=== PATIENT | female | born 1945 | race Caucasian/White ===

== ENCOUNTER 2018-12-23 06:58 | Inpatient (IN) ==
--- NOTE | 2018-12-05 13:20 | Anesthesiology Consultation ---
Date of Service December 05, 2018 Assessment & Plan (1) Encounter for pre-operative examination: Chart Review Chart Review: Acceptable Risk for Surgery (pending evaluation of clinical status AM DOS) and Patient NOT seen in Pre Admission Testing History Surgery Operation Date: 12/23/18 07:15 Proposed Procedures p Right Ankle Posterior Tibial Tendon Reconstruction, Flexor Digitorum Longus Tendon Transfer, - DO jose Lorenzo Medializing Calcaneal Osteotomy, - DO jose Lorenzo Lateral Column Lengthening with Autograft, Percutaneous Tendon Achilles Lengthening, Right Hip Autograft [place] Iliac Crest - Andrew Anna DO Height/Weight Height: 5 ft 4 in Weight: 87.543 kg Allergies Allergy/AdvReac Type Severity Reaction Status Date / Time No Known Allergies Allergy Unknown Verified 12/05/18 12:32 Medications Home Medications Medication Instructions Recorded Confirmed Last Taken acetaminophen [Tylenol] 325 mg PO BID 12/05/18 12/05/18 Unknown amlodipine [Norvasc] 5 mg PO QAM 12/05/18 12/05/18 Unknown cetirizine [Allergy Relief 10 mg PO QAM 12/05/18 12/05/18 Unknown (cetirizine)] iron,carbonyl-vitamin C 2 tab PO QAM 12/05/18 12/05/18 Unknown omeprazole 20 mg PO QAM 12/05/18 12/05/18 Unknown Past Medical History Medical History Frequency of urination GERD (gastroesophageal reflux disease) Hearing deficit Hiatal hernia "small, fixed" per 10/2018 CXR Hypertension Past Surgical History Surgical History History of ankle surgery RECONSTRUCTION OF LEFT ANKLE Hx of bladder repair surgery Hx of hysterectomy Hx of total knee replacement RIGHT AND LEFT Hx of tubal ligation PONV (postoperative nausea and vomiting) Social History Smoking Status: Never smoker Do You Dip or Chew Tobacco: No Hx Alcohol Use: Yes Alcohol type: wine alcohol intake frequency: holidays/special occasions only Hx Substance Use: No substance use type: does not use Testing Laboratory Results 11/03/18 WBC 7.55 H/H 16.0/47.1 PLATELETS 250 UA negative Electrocardiogram Date: 11/03/18 Possible ectopic atrial rhythm at 88bpm. LAD. Minimal voltage criteria for LVH, may be normal variant (denies chest pain, palpitations per patient questionnaire) Chest X-Ray Date: 11/03/18 Negative chest. Small fixed hiatal hernia
--- NOTE | 2018-12-22 13:39 | History & Physical Report ---
Date of Service December 22, 2018 Assessment & Plan (1) Posterior tibial tendon dysfunction (PTTD) of right lower extremity: Schedule Right Posterior tibial tendon reconstruction w/ FDL tendon transfer, Medializing calcaneal osteotomy, Lateral column lengthening w/ autograft, percutaneous tendo-achilles lengthening, Right iliac crest autograft harvest. All potential risks, benefits, complications, alternatives, and rehab have been discussed with the patient and she wishes to proceed. She will be scheduled for 12.23.18 with plan for ASA 81 mg BID x 4 wks for DVT prophylaxis. (2) Pes planus of right foot: (3) Achilles tendon contracture, right: History of Present Illness Chief Complaint: right ankle Primary Care Provider: ELVI Johnson This is a patient with a worsening flat foot deformity with worsening medial and lateral foot pain. She failed all conservative management and is now being set up for surgical management. Allergies Allergy/AdvReac Type Severity Reaction Status Date / Time No Known Allergies Allergy Unknown Verified 12/05/18 12:32 Home Medications Home Medications Medication Instructions Recorded Confirmed Type acetaminophen [Tylenol] 325 mg PO BID 12/05/18 12/05/18 History amlodipine [Norvasc] 5 mg PO QAM 12/05/18 12/05/18 History cetirizine [Allergy Relief 10 mg PO QAM 12/05/18 12/05/18 History (cetirizine)] iron,carbonyl-vitamin C 2 tab PO QAM 12/05/18 12/05/18 History omeprazole 20 mg PO QAM 12/05/18 12/05/18 History Past Med/Surg History Medical History Frequency of urination GERD (gastroesophageal reflux disease) Hearing deficit Hiatal hernia "small, fixed" per 10/2018 CXR Hypertension Surgical History History of ankle surgery RECONSTRUCTION OF LEFT ANKLE Hx of bladder repair surgery Hx of hysterectomy Hx of total knee replacement RIGHT AND LEFT Hx of tubal ligation PONV (postoperative nausea and vomiting) Social History Preferred Language: Georgian Communication Ability: Effective Quality Cloth Tester Required: No Beliefs That Will Affect Care: None Current Living Situation: Alone Other Information That Helps Us Care for You: No Feels Safe at Home: Yes Safety Concerns: Feels Safe At This Time Smoking Status: Never smoker Do You Dip or Chew Tobacco: No ; Second Hand Exposure: No ; Tobacco Cessation Education Requested by Patient: No Hx Alcohol Use: Yes Alcohol type: wine Hx Substance Use: No Physical Exam Constitutional: well developed and well nourished; no acute distress ENMT: external ear and nose normal, oropharynx normal Neck: trachea midline, no thyromegaly Respiratory: normal respiratory effort, lungs clear to auscultation Cardiovascular: Rate/Rhythm: regular rate and regular rhythm Gastrointestinal (Abdomen): normal bowel sounds, soft, nontender, no hepatosplenomegaly Musculoskeletal: Right ankle/foot: Pes planovalgus deformity. Tender along the PTT and the sinus tarsi. Decreased ROM, particularly with dorsiflexion. Skin: no rashes, warm and dry Neurologic: normal touch/pain/proprioception Psychiatric: A+Ox3, euthymic affect Lymphatic: no cervical or axillary lymphadenopathy
[~2018-12-23 06:58] MED LIST: CEFAZOLIN 2000MG 2,000 MG/15 ML SYR IV SCH; LR 15ML/HR IV SCH
[2018-12-23] MEDS ORDERED: BUPIVACAINE/EPINEPHRINE 0.5% MPF 1:200,000 30 ML VIAL ONE (07:16)
[2018-12-23] MEDS ORDERED: BACITRACIN INJ 50,000 UNIT VIAL ONE (07:17)
[2018-12-23] MEDS ORDERED: GELATIN SPONGE SZ 100 ONE (07:17)
[2018-12-23] MEDS ORDERED: THROMBIN FOR SOLN 20000 UNIT KIT ONE (07:17)
[2018-12-23] MEDS ORDERED: LIDOCAINE HCL 2% 2 ML VIAL/AMP(20MG/ML) INFIL ONE (07:20)
[2018-12-23] MEDS ORDERED: PROPOFOL IV EMULSION 10 MG/ML 20 ML VIAL IV ONE (07:20)
[2018-12-23] MEDS ORDERED: ONDANSETRON INJ 2 MG/ML 2 ML VIAL ONE (07:20)
[2018-12-23] MEDS ORDERED: fentaNYL citrate 100 MCG/2 ML VIAL ONE ×3 (07:21→11:23)
[2018-12-23] MEDS ORDERED: MIDAZOLAM HCL 1 MG/ML 2ML VIAL ONE (07:21)
--- NOTE | 2018-12-23 07:28 | History & Physical Bridge Note ---
Date of Service December 23, 2018 History & Physical Bridge Note I have examined the patient, reviewed the History & Physical and in the interval since the performance of the History & Physical I have noted the following changes of clinical significance: no changes noted
[2018-12-23] MEDS ORDERED: HYDROmorphone INJ 1 MG/ML SYRINGE IV PRN (07:56)
[2018-12-23] MEDS ORDERED: ePHEDrine sulfate 50 MG/ML AMP IV PRN (07:56)
[2018-12-23] MEDS ORDERED: ONDANSETRON INJ 2 MG/ML 2 ML VIAL IV PRN ×2 (07:56→14:02)
[2018-12-23] MEDS ORDERED: ATROPINE SULFATE 0.1 MG/ML 10ML SYR IV PRN (07:56)
[2018-12-23] MEDS ORDERED: ROPIVACAINE 0.5% 5 MG/ML 30 ML VIAL ONE (08:02)
[2018-12-23] MEDS ORDERED: MoRPHine SULFATE PF 1 MG/ML 10 ML AMP/VIAL ONE (09:18)
[2018-12-23] MEDS ORDERED: DEXAMETHASONE SOD INJ 4 MG/ML VIAL ONE (09:29)
[2018-12-23] MEDS ORDERED: GLYCOPYRROLATE 0.2 MG/ML VIAL ONE (09:29)
[2018-12-23] MEDS ORDERED: NEOSTIGMINE METHYLSULFATE 5 MG/5 ML SYR ONE (09:29)
[2018-12-23] MEDS ORDERED: MoRPHine SULFATE 2 MG/ML CARP SQ PRN (10:15)
[2018-12-23] MEDS ORDERED: ROCURONIUM BROMIDE 10 MG/ML 5 ML VIAL ONE (11:51)
--- NOTE | 2018-12-23 11:51 | Post Operative Brief Note ---
Immediate Post Op Note v1 Date of Surgery December 23, 2018 Pre & Post Diagnosis Operation Date: 12/23/18 08:45 Pre-Op Diagnosis: Right Ankle Posterior Tibial Tendon tear, posterior tibial tendon dysfunction grade 2, Achilles contracture, painful pes planus Post-Op Diagnosis: Right Ankle Posterior Tibial Tendon tear, posterior tibial tendon dysfunction grade 2, Achilles contracture, painful pes planus Procedure Operation Date: 12/23/18 08:45 Actual Procedures p Right Posterior Tibial Tendon Reconstruction with tendon transfer, Flexor Digitorum Longus Tendon Transfer,(Right) - Andrew Anna DO s Medializing Calcaneal Osteotomy with 7.3 mm screw fixation,(Right) - DO jose Lorenzo Lateral Column Lengthening calcaneus with Autograft, Percutaneous Tendon Achilles Lengthening, Right Hip Autograft [place] Iliac Crest(Right) - Andrew Anna DO Surgeon Andrew Anna DO Glue Bone Crusher Mario Sherwood PA-C Estimated Blood Loss 10 Findings Consistent with Post-Op Diagnosis Specimens Posterior tibial tendon insertion Drains Hemovac Drain (10 thai ) Anesthesia Type General Regional Complications none Disposition Accompanied Patient To Recovery: No Disposition: Recovery Room Overlapping Procedure I was present for: the critical portions of procedure. I was immediately available: during the entire case.
[2018-12-23] MEDS: fentaNYL citrate 100 MCG/2 ML VIAL IV PRN ×4 (12:25→12:40)
[2018-12-23] MEDS ORDERED: HYDROmorphone INJ 1 MG/ML SYRINGE ONE (12:58)
--- NOTE | 2018-12-23 12:58 | XRay Report ---
XR ankle RT min 3V routine HISTORY: 73 years-old Female post op [ORIF of the right ankle COMPARISON: Right foot radiographs 03/24/2018 TECHNIQUE: 3 views of the right ankle FINDINGS: Bony detail isn't secured secondary to overlying casting material. Skin bert project over the post erior lower leg and hindfoot. There is suggestion of osteotomy changes of the calcaneus. A large pita ulated screw projects over the posterior calcaneus. An additional cannulated screws noted about the a nterior process of the calcaneus. Satisfactory alignment. Mild tibiotalar and midfoot osteoarthritis. Surgical drainage catheter is noted along with expected postsurgical soft tissue swelling and deep t issue air. IMPRESSION: Postoperative findings as above. The above report was generated using voice recognition software. It may contain grammatical, syntax o r spelling errors. Electronically signed by: John Whitt M.D. 12/23/2018 12:56 PM
--- NOTE | 2018-12-23 14:00 | Fluoroscopy Report ---
FL ankle RT 2V CLINICAL HISTORY: 73 years-old Female presenting with RIGHT ANKLE. TECHNIQUE: 2 fluoroscopic image(s) recorded as part of an intraoperative procedure. COMPARISON: 12/23/2018. FINDINGS/IMPRESSION: Cannulated screw fixation of the calcaneus. Additional screw fixation across the calcaneocuboid artic ulation. Please see surgical report for further details. Fluoroscopy dosage (mGy): 0.26. Fluoroscopy time: 11.8 seconds. Number or time of high level fluoroscopy (HLF), digital spot, or digital subtraction images: 0. Electronically signed by: Thompson Odom M.D. 12/23/2018 1:59 PM
[2018-12-23] MEDS ORDERED: BISACODYL 10 MG SUPP PR PRN (14:02)
[2018-12-23] MEDS ORDERED: NO NSAIDS SCH (14:02)
[2018-12-23] MEDS ORDERED: NALOXONE HCL 0.4 MG/1 ML VIAL/CARP IV PRN (14:02)
[2018-12-23] MEDS ORDERED: METOCLOPRAMIDE HCL INJ 5 MG/ML 2 ML VIAL IV PRN (14:02)
[2018-12-23] MEDS ORDERED: MAGNESIUM HYDROXIDE SUSP 30 ML UDC PO PRN (14:02)
--- NOTE | 2018-12-23 14:47 | Anesthesiology Progress Note ---
Date of Service December 23, 2018 Anesthesia Post Procedure Vital Signs Vital Signs: Temp Pulse Pulse Resp BP Pulse Ox 12/23/18 14:22 76 16 150/82 H 93 12/23/18 13:55 36.4 C L 72 15 154/83 H 94 12/23/18 13:40 36.3 C L 69 14 145/80 H 100 12/23/18 13:25 36.1 C L 70 15 150/77 H 100 12/23/18 13:10 69 15 140/80 100 12/23/18 13:00 67 16 135/75 100 12/23/18 12:50 77 18 150/81 H 100 12/23/18 12:40 74 18 141/76 H 100 12/23/18 12:30 71 18 146/82 H 100 12/23/18 12:20 81 18 154/74 H 98 12/23/18 12:10 36.9 C 84 18 148/84 H 98 12/23/18 07:49 36.6 C 81 20 136/89 93 Pain Intensity Right Ankle: Pain Intensity: 7 Transfer of Care Handoff Completed per policy Notes Mental Status: alert / awake / arousable and participated in evaluation Patient Amnestic to Procedure: Yes Nausea / Vomiting: adequately controlled Pain: adequately controlled Airway Patency, RR, SpO2: stable & adequate BP & HR: stable & adequate Hydration State: stable & adequate Anesthetic Complications: no major complications apparent and Pt Satisfied with anesthetic care
[2018-12-23] MEDS: HYDROmorphone INJ 0.5 MG/0.5 ML SYR IV PRN (15:07)
[2018-12-23] MEDS: SODIUM CHLORIDE 0.9% 1000ML 1,000 ML IV SCH (17:28)
[2018-12-23] MEDS: CEFAZOLIN 2000MG 2,000 MG/15 ML SYR IV SCH (17:28)
[2018-12-23] MEDS: OXYCODONE HCL IR 5 MG TAB (IMMEDIATE RELEASE) PO PRN (17:33)
[2018-12-23] MEDS: SENNA 8.6 MG TAB PO SCH (21:05)
[2018-12-23] MEDS: ACETAMINOPHEN 500 MG TAB PO SCH (21:06)
[2018-12-23] MEDS: ASPIRIN 81 MG ECTAB PO SCH (21:06)
[2018-12-23] MEDS: DOCUSATE SODIUM 100 MG CAP PO SCH (21:07)
--- NOTE | 2018-12-23 23:46 | Operative Report ---
DATE OF OPERATION: 12/23/2018 PREOPERATIVE DIAGNOSES: 1. Right posterior tibial tendon tear. 2. Posterior tibial tendon dysfunction grade 2. 3. Achilles tendon contracture. 4. Painful pes planovalgus. POSTOPERATIVE DIAGNOSES: 1. Right posterior tibial tendon tear. 2. Posterior tibial tendon dysfunction grade 2. 3. Achilles tendon contracture. 4. Painful pes planovalgus. PROCEDURE: 1. Right foot posterior tibial tendon reconstruction with flexor digitorum longus tendon transfer. 2. Medializing calcaneal osteotomy with screw fixation. 3. Lateral column lengthening of the calcaneus with application autograft and screw. 4. Percutaneous tendon Achilles lengthening. 5. Right pelvis iliac crest bone graft harvest. SURGEON: Andrew Anna DO BLEND TECHNICIAN: Mario Sherwood PA-C, who was present for patient positioning, sterile prep and drape, management of retractors and instruments. He was present through the critical portions of the case including wound closure, application of sterile dressing and transport of the patient to recovery. ANESTHESIA: General LMA with popliteal block and local. SPECIMENS: None. DRAINS: Hemovac x1. COMPLICATIONS: None. BLOOD LOSS: 10 mL. PERTINENT HISTORY: This is a 73-year-old woman who had progressive chronic and worsening right foot pain, swelling, deformity and weakness. She attempted and failed conservative management including shoe modification, activity modification, anti-inflammatories, both oral and topical as well as physician directed home exercises, physical therapy as an outpatient, use of orthotic devices, use of bracing, use of an assistive device. The patient had radiographs and MRI which demonstrated posterior tibial tendon tear with posterior tibial tendon dysfunction grade 2, Achilles tendon contracture and pes planovalgus. The patient was then scheduled for surgery as indicated. All potential risks, benefits, complications, alternatives, rehab, potential for incomplete relief of symptoms, need for further surgery, DVT, PE, , persistent pain, swelling, scarring, weakness, neurovascular injury, wound complications, hardware failure, nonunion, malunion and bone fracture were discussed with the patient. The patient decided to proceed with the procedure as indicated. DESCRIPTION OF PROCEDURE: The patient was taken to the operative suite. The consent was reviewed and surgical site was identified. The patient had undergone a anesthetic and then transferred to the Operating Room table. Tourniquet was placed high in the right thigh over cast padding. Right iliac crest and right lower extremity were then sterilely prepped and draped in usual fashion. The right lower extremity was then elevated and exsanguinated with Esmarch bandage, tourniquet inflated to 350 mmHg. Next, right foot was held in dorsiflexion. 11 blade scalpel was used to perform a three part percutaneous tendo Achilles lengthening and then the small stab incisions were then closed with a skin stapler. Next, a 15 blade scalpel was used to make an incision in oblique fashion on the lateral aspect of the right calcaneus. The incision was deepened to subcutaneous tissue. Meticulous hemostasis with electrocautery. Full thickness flaps were developed. Next, periosteum was elevated with small periosteal elevator. Hohmann retractors were placed and a sagittal saw was used to perform the osteotomy in the posterior aspect of the calcaneus. Tuberosity was then shifted medially and then stabilized with a guide pin from the 7.3 mm cannulated screw set under fluoroscopic control. Next, a short thread 7.3 mm cannulated screw of appropriate length was then placed over the guide pin and then used to compress the osteotomy under fluoroscopic control. Next, the guide pin was removed. The wound was irrigated with sterile Normal Saline and the dermis was closed using buried 3-0 Vicryl sutures and the skin was closed using 4-0 Nylon. Next, a 15 blade scalpel incision was made over the anterior process of the calcaneus and lateral calcaneus, the incision deepened through subcutaneous tissue, meticulous hemostasis with electrocautery. The extensor digitorum brevis was identified, incised and then elevated both superiorly and inferiorly. Peroneal tendon sheath was elevated and Hohmann retractors were placed in the sinus tarsi and then the inferior aspect of the calcaneus. A sagittal saw was used to make an osteotomy approximately 1.5 cm proximal to the calcaneal cuboid joint. Smooth osteotomes were placed into the osteotomies to open the osteotomy site and then a cervical lamina stone spreader operator was placed in the opening. The opening of appropriate width was then measured and the cervical lamina stone spreader operator was then removed from the osteotomy and a moist lap was placed over the foot. Next, after injection of the right iliac crest with approximately 15 cc of 0.5% Marcaine with Epinephrine a 15 blade scalpel incision was made over the iliac crest approximately 1 cm proximal to the ASIS. This was deepened to subcutaneous tissue with electrocautery down to the level of the fascia. Fascia was incised in line with the skin incision and then the iliac crest was clearly visualized, soft tissue and fascia was elevated medially and laterally. Small Johnson retractors were placed in the inner and outer table of the iliac crest. It was irrigated with sterile Normal Saline. Appropriate length of bone wedge was measured and marked with electrocautery and then a sagittal saw was used to resect the appropriate width trapezoidal tricortical graft from the pelvis. Next, after irrigation and suction the graft was then placed on the back table and a small amount of cancellous graft was excised from the iliac crest. The wound was then finally irrigated with Sterile Normal Saline. The defect in the iliac crest was then packed with Gelfoam and Thrombin. This was then closed with the fascia overlying the iliac crest with #1 Vicryl sutures. Next, this was injected with 1 cc of Duramorph and 5 cc of 0.5% Marcaine with Epinephrine. The dermis was closed using buried interrupted 2-0 Vicryl sutures and the skin was closed using skin bert. Approximately 5 more cc of 0.5% Marcaine with Epinephrine was injected. No oozing or bleeding was encountered and a sterile compressive dry dressing was applied overwrapped with an OpSite. Next, the graft was then placed in the lateral osteotomy of the foot to lengthen the lateral column using a cervical lamina stone spreader operator to span the osteotomy. After the graft was tamped in place with a bone tamp and mallet the cervical lamina stone spreader operator was removed. Next, the adjacent bone graft obtained from the iliac crest was then packed around the tricortical graft and then the graft was then stabilized with a single fully threaded 4.0 mm small fragment screw placed under lag technique compressing the graft in place. Next, the 2-0 Vicryl suture was used to close the extensor digitorum brevis and the dermis was closed using buried interrupted 3-0 Vicryl. Skin was closed using 4-0 Nylon sutures. Next, a 15 blade scalpel was used to make a long curvilinear incision along the medial aspect of the hind foot overlying the posterior tibial tendon. The incision was deepened to subcutaneous tissue. Meticulous hemostasis achieved with electrocautery. The incision was extended to the first metatarsal head. Next, after incision of the lacinate ligament the flexor retinaculum was encountered. This was incised in line with skin incision overlying the posterior tibial tendon. The posterior tibial tendon was clearly visualized. Tenotomy scissors were then used to complete the release of the flexor retinaculum and the posterior tibial tendon was then elevated sharply with combination of electrocautery and 15 blade scalpel from its insertion on the navicular. The damaged portion of the tendon distally was then resected and then a whip stitch was placed with 0 Ethibond suture in the distal aspect of the posterior tibial tendon. Next, dissection was continued in the mid foot in the interval between the first metatarsal and the abductor hallucis. A Weitlaner retractor was placed in the wound and then after careful dissection the master knot of Lauro was released and the flexor digitorum longus and flexor hallucis longus were clearly visualized distally. Tenodesis was performed with interrupted 0 Ethibond suture with toes held in neutral alignment in line with the metatarsals. Next, a whip stitch was placed in the distal aspect of the FDL tendon and then the FDL was then released distally to allow it to be retracted proximally posterior to the medial malleolus after a small cut was made in the FDL sheath posterior to the medial malleolus. After the tendon was withdrawn posteriorly, the soft tissues were elevated from the medial navicular and a 4.5 mm drill hole was made in the medial navicular. A Aguila suture passer was used to transfer the tendon from the plantar to the dorsal aspect of the navicular. It was then sutured back down to itself using a sharp tendon passer and a Pulvertaft weave technique with #2 fiber wire suture. Several passes were made and then this was then incorporated into the posterior tibial tendon. Next, free needle was used to tie the ends of the posterior tibial tendon and FDL tendon into the adjacent tendons. Sutures were then tied and cut. The wound was irrigated with Sterile Normal Saline. Deep drain was placed, a #10 Australian single Hemovac drain medially and then the flexor sheath was closed using interrupted 2-0 Vicryl sutures. The interval between the first metatarsal and the abductors were closed using interrupted 2-0 Vicryl sutures. The dermis was closed using buried interrupted 3-0 Vicryl suture and skin closed with 4-0 Nylon. A sterile compressive Noah Henderson plaster splint was applied and wrapped with an Jai wrap with the foot held in slight equinus and inversion. The tourniquet was released, patient awakened and taken to recovery in stable condition. I attest to the content of the Intraoperative Record and any orders documented therein. Any exception s are noted below.
[2018-12-24] MEDS: OXYCODONE HCL IR 5 MG TAB (IMMEDIATE RELEASE) PO PRN ×5 (00:41→21:15)
[2018-12-24] MEDS: CEFAZOLIN 2000MG 2,000 MG/15 ML SYR IV SCH (00:41)
[2018-12-24] MEDS: SODIUM CHLORIDE 0.9% 1000ML 1,000 ML IV SCH (00:42)
[2018-12-24] MEDS: ACETAMINOPHEN 500 MG TAB PO SCH ×3 (05:31→21:13)
[2018-12-24 06:03] LABS: Hematocrit (blood only) 41.7 % (37-47); Hemoglobin 13.9 g/dL (12.0-16.0); Mean Corpuscular Hgb Conc 33.3 g/dL (32-36); Mean Corpuscular Volume 96.3 fL (80-100); Mean Platelet Volume 9.5 fL (7.4-10.4); Platelet Count 209 K/uL (130-400); RDW Coefficient of Variation 13.4 % (11.5-14.5); RDW Standard Deviation 47.2 fL (36.4-46.3); Red Blood Count 4.33 M/uL (4.2-5.4)
[2018-12-24 06:35] LABS: BUN Creatinine Ratio 16.1 (10-20); Calcium 8.3 mg/dl (8.5-10.1); Creatinine Clr Calc Pharmacy 43.5 ml/min; Est GFR (African American) 49.1; Est GFR (Non-African American) 42.3; Potassium 4.2 mmol/L (3.5-5.1)
[2018-12-24] MEDS: HYDROmorphone INJ 0.5 MG/0.5 ML SYR IV PRN ×2 (06:47→11:19)
--- NOTE | 2018-12-24 07:57 | Orthopedic Progress Note ---
Date of Service December 24, 2018 Assessment & Plan (1) Posterior tibial tendon dysfunction (PTTD) of right lower extremity: 73 yo female stable POD #1 s/p right hindfoot reconstruction 1. Med management 2. DVT prophylaxis- SCDs 3. PT/OT 4. D/C planning- pt concerned because she was not able to get a wheelchair pre- op. She is supposed to got to her sisters home on d/c but concerned about her ability to get around, will d/w Dr Anna Subjective Pt resting in bed, states moderate discomfort right ankle/foot Physical Exam Physical Exam: Bulky dressing and drain in place Results & Data Vital Signs (Past 12 Hours) Vital Signs Temp Pulse Resp BP Pulse Ox 12/24/18 07:21 37.0 C 76 18 125/73 92 12/24/18 04:20 36.6 C 75 16 118/72 96 12/23/18 23:20 93 12/23/18 23:15 36.7 C 83 16 120/77 89 L 12/23/18 20:24 36.6 C 83 18 120/74 91 Laboratory Results 12/24/18 12/24/18 Range/Units 05:55 05:55 WBC 10.70 (4.8-10.8) K/uL RBC 4.33 (4.2-5.4) M/uL Hgb 13.9 (12.0-16.0) g/dL Hct 41.7 (37-47) % MCV 96.3 (80-100) fL MCH 32.1 (25-34) pg MCHC 33.3 (32-36) g/dL RDW Std Deviation 47.2 H (36.4-46.3) fL RDW Coeff of Dominic 13.4 (11.5-14.5) % Plt Count 209 (130-400) K/uL MPV 9.5 (7.4-10.4) fL Sodium 138 (136-145) mmol/L Potassium 4.2 (3.5-5.1) mmol/L Chloride 107 (98-107) mmol/L Carbon Dioxide 26 (21-32) mmol/L Anion Gap 5.0 (3-11) BUN 20 H (7-18) mg/dl Creatinine 1.25 H (0.6-1.2) mg/dl Est Cr Clr Drug Dosing 43.5 ml/min Est GFR ( Amer) 49.1 Est GFR (Non-Af Amer) 42.3 BUN/Creatinine Ratio 16.1 (10-20) Glucose 112 H (70-99) mg/dl Calcium 8.3 L (8.5-10.1) mg/dl
[2018-12-24] MEDS: PANTOprazole 40 MG TAB PO SCH (08:08)
[2018-12-24] MEDS: AMLODIPINE BESYLATE 5 MG TAB PO SCH (08:09)
[2018-12-24] MEDS: ASPIRIN 81 MG ECTAB PO SCH ×2 (08:09→21:13)
[2018-12-24] MEDS: MULTIVITAMIN TAB PO SCH (08:09)
[2018-12-24] MEDS: CETIRIZINE HCL 10 MG TABLET PO SCH (08:09)
[2018-12-24] MEDS: DOCUSATE SODIUM 100 MG CAP PO SCH ×2 (08:09→21:12)
[2018-12-24] MEDS ORDERED: IRON CARBONYL VITAMIN C PO SCH (09:00)
[2018-12-24] MEDS: SENNA 8.6 MG TAB PO SCH (21:13)
[2018-12-25] MEDS: OXYCODONE HCL IR 5 MG TAB (IMMEDIATE RELEASE) PO PRN ×2 (06:20→21:13)
[2018-12-25] MEDS: ACETAMINOPHEN 500 MG TAB PO SCH ×3 (06:20→21:13)
--- NOTE | 2018-12-25 09:02 | Orthopedic Progress Note ---
Date of Service December 25, 2018 Assessment & Plan (1) Posterior tibial tendon dysfunction (PTTD) of right lower extremity: 73 yo female stable POD #2 s/p right hindfoot reconstruction with iliac crest bone graft 1. Med management 2. DVT prophylaxis- ASA, SCDs 3. PT/OT 4. D/C planning- home. Pt must be nonweightbearing right LE and not safe with walker or cane. Would recommend d/c when pt able to get wheelchair(Tuesday 12/26) Subjective Pt resting in bed, complains of more pain right hip(bone graft harvest site) than ankle, concerned about going home without a wheelchair because doesn't feel safe on walker Physical Exam Physical Exam: Dressing removed right hip, incision C/D/I, dressing in place right ankle, drain d/c'd, toes mobile Results & Data Vital Signs (Past 12 Hours) Vital Signs Temp Pulse Resp BP Pulse Ox 12/25/18 06:28 36.9 C 90 17 127/75 92 12/25/18 00:01 92 12/24/18 23:29 37.4 C 96 H 16 119/66 92 12/24/18 23:28 73 L
[2018-12-25] MEDS: AMLODIPINE BESYLATE 5 MG TAB PO SCH (09:38)
[2018-12-25] MEDS: CETIRIZINE HCL 10 MG TABLET PO SCH (09:38)
[2018-12-25] MEDS: PANTOprazole 40 MG TAB PO SCH (09:38)
[2018-12-25] MEDS: DOCUSATE SODIUM 100 MG CAP PO SCH ×2 (09:38→21:14)
[2018-12-25] MEDS: ASPIRIN 81 MG ECTAB PO SCH ×2 (09:39→21:14)
[2018-12-25] MEDS: MULTIVITAMIN TAB PO SCH (09:39)
[2018-12-25] MEDS: SENNA 8.6 MG TAB PO SCH (21:14)
[2018-12-26] MEDS: ACETAMINOPHEN 500 MG TAB PO SCH (05:50)
--- NOTE | 2018-12-26 08:09 | Anesthesiology Progress Note ---
Date of Service December 26, 2018 Anesthesia Post Procedure Vital Signs Vital Signs: Temp Pulse Pulse Resp BP Pulse Ox 12/26/18 07:02 36.6 C 82 18 111/72 93 12/25/18 23:20 36.6 C 95 H 16 125/75 94 12/25/18 15:24 36.8 C 102 H 18 115/73 92 12/25/18 14:17 92 Notes Mental Status: alert / awake / arousable and participated in evaluation Nausea / Vomiting: adequately controlled Pain: adequately controlled Airway Patency, RR, SpO2: stable & adequate BP & HR: stable & adequate Hydration State: stable & adequate Neuraxial Anesthesia: sensory block resolved
[2018-12-26] MEDS: AMLODIPINE BESYLATE 5 MG TAB PO SCH (08:38)
[2018-12-26] MEDS: PANTOprazole 40 MG TAB PO SCH (08:38)
[2018-12-26] MEDS: CETIRIZINE HCL 10 MG TABLET PO SCH (08:38)
[2018-12-26] MEDS: ASPIRIN 81 MG ECTAB PO SCH (08:38)
[2018-12-26] MEDS: MULTIVITAMIN TAB PO SCH (08:38)
[2018-12-26] MEDS: DOCUSATE SODIUM 100 MG CAP PO SCH (08:38)
--- NOTE | 2018-12-26 10:16 | Orthopedic Progress Note ---
Date of Service December 26, 2018 Assessment & Plan (1) Posterior tibial tendon dysfunction (PTTD) of right lower extremity: 73 yo female stable POD #3 s/p right hindfoot reconstruction with iliac crest bone graft 1. Med management 2. DVT prophylaxis- ASA, SCDs 3. PT/OT 4. D/C planning- home today Subjective Pain is controlled in the right ankle and pelvis. Has been able to be NWB on the RLE but wants to have a wheelchair for the best ability to stay NWB. She is planning on staying with her sister on a 1 floor home during her rehab. Physical Exam Constitutional: well developed and well nourished; no acute distress ENMT: external ear and nose normal, oropharynx normal Neck: trachea midline, no thyromegaly Respiratory: normal respiratory effort, lungs clear to auscultation Cardiovascular: Rate/Rhythm: regular rate and regular rhythm Gastrointestinal (Abdomen): normal bowel sounds, soft, nontender, no hepatosplenomegaly Musculoskeletal: Right lower leg: splint in place. Toes are mobile. Sensation intact to light touch. Skin: no rashes, warm and dry Neurologic: normal touch/pain/proprioception Psychiatric: A+Ox3, euthymic affect Lymphatic: no cervical or axillary lymphadenopathy Results & Data Vital Signs (Past 12 Hours) Vital Signs Temp Pulse Resp BP Pulse Ox 12/26/18 07:02 36.6 C 82 18 111/72 93 12/25/18 23:20 36.6 C 95 H 16 125/75 94
--- NOTE | 2019-01-02 11:39 | Discharge Summary ---
Date of Service January 02, 2019 Admission HPI Per Admitting Provider This is a patient with a worsening flat foot deformity with worsening medial and lateral foot pain. She failed all conservative management and is now being set up for surgical management. Principal Diagnosis right posterior tibial tendon dysfunction Discharge Exam Constitutional well developed and well nourished; no acute distress ENMT external ear and nose normal, oropharynx normal Neck trachea midline, no thyromegaly Respiratory normal respiratory effort, lungs clear to auscultation Cardiovascular Rate/Rhythm: regular rate and regular rhythm Gastrointestinal (Abdomen) normal bowel sounds, soft, nontender, no hepatosplenomegaly Musculoskeletal Right ankle: splint C/D/I. Toes are mobile. Sensation intact to light touch. Right anterior pelvis: dressing C/D/I. Skin no rashes, warm and dry Neurologic normal touch/pain/proprioception Psychiatric A+Ox3, euthymic affect Lymphatic no cervical or axillary lymphadenopathy Discharge Data Allergies Allergy/AdvReac Type Severity Reaction Status Date / Time No Known Allergies Allergy Unknown Verified 12/23/18 07:40 Consultations 12/23/18 14:02 Consult Case Management - Discharge Planning Routine Procedures Performed Operation Date: 12/23/18 08:45 Actual Procedures p Right Ankle Posterior Tibial Tendon Reconstruction, Flexor Digitorum Longus Tendon Transfer,(Right) - DO jose Lorenzo Medializing Calcaneal Osteotomy,(Right) - DO jose Lorenzo Lateral Column Lengthening with Autograft, Percutaneous Tendon Achilles Lengthening, Right Hip Autograft [place] Iliac Crest(Right) - Andrew Anna DO Ordered Studies 12/23/18 05:00 US - OR guided needle placemen Routine 12/23/18 08:45 FL ankle RT 2V Routine FL fluoroscopy <1hr Routine Hospital Course (1) Posterior tibial tendon dysfunction (PTTD) of right lower extremity: Patient underwent the noted procedure on 12.23.18. She progressed well with pain control and PT. However, PT felt for the patient to go home, she would be safest with a wheelchair. She was unable to obtain a wheelchair until the beginning of the week on 12.26.18. She was discharged on POD #3 after she was able to get the wheelchair from a DME provider. 73 yo female stable POD #3 s/p right hindfoot reconstruction with iliac crest bone graft 1. Med management 2. DVT prophylaxis- ASA, SCDs 3. PT/OT 4. D/C planning- home today Total Time Total Time Spent Total Time Spent (In Minutes): 60 minutes Total Time Includes: Examination of the Patient, Discharge Planning and Medi cation Reconciliation Discharge Plan Discharge Items Patient Disposition: Home - Self-Care Reason For Visit: Right Ankle Posterior Tibial Tendon Dysfunction Activity: Per Instructions section Non-emergency contact: Surgeon Follow-up/Referrals: Marifer Gomez CRNP [Primary Care Provider] - Addtl Real Estate Officer Provider Instructions: ACTIVITY RECOMMENDATIONS: Limitations: No weight bearing to affected limb at all times. SPECIAL CARE INSTRUCTIONS: * Take aspirin 81 mg every 12 hours for the next 4 weeks for blood clot prophylaxis. * Some drainage onto the dressing is normal and is no cause for alarm. * Some swelling is natural especially after walking. * When resting, keep your foot elevated above the level of your heart. * Call [facility] if you notice: -Increased drainage -Fever over 101 degrees F -Severe constant pain BANDAGE: * Leave bandage/cast in place unless otherwise directed. * Keep bandage/cast dry at all times. FOLLOW UP VISIT WITH DR. ANNA If appointment is not already scheduled: Please call [facility] after you get home today to schedule a follow-up appointment for [address] Anna at . Stand-Alone Forms: My [facility] [employer], Opioid Pain Management Medications and DC Order Prescriptions: New aspirin [Ecotrin Low Strength] 81 mg Tablet,Delayed Release (Dr/Ec) 81 mg PO BID Qty: 60 RF: 0 oxycodone-acetaminophen [Percocet] 5-325 mg tablet 1 tab PO Q4H PRN (Reason: pain) Qty: 30 RF: 0 Continued amlodipine [Norvasc] 5 mg Tablet 5 mg PO QAM RF: 0 omeprazole 20 mg Tablet,Delayed Release (Dr/Ec) 20 mg PO QAM RF: 0 Allergy Relief (cetirizine) 10 mg Capsule 10 mg PO QAM RF: 0 iron,carbonyl-vitamin C 65 mg iron- 125 mg Tablet,Delayed Release (Dr/Ec) 2 tab PO QAM RF: 0 Discontinued acetaminophen [Tylenol] 325 mg Capsule 325 mg PO BID RF: 0 Discharge Orders: Discharge Order (Routine); Ordered 12/26/18 Ordered By: Mario Cyr/Other Patient Handouts: Surgery Prevent DVT After Admission Data Admit Date/Time: 12/23/18 12:13 Attending Provider: Andrew Anna Admit Provider: Andrew Anna Primary Care Provider: Marifer Gomez Other Interventions: Discharge Summary Assessment (RN) Last Done: 12/26/18 10:26 DC Date/Time DO NOT enter until pt leaves facility: 12/26/18 13:19
== END 2018-12-26 13:19 | disposition home or self-care (01) | DRG 502 ==
LOC: ASU 06:58 → 3E 12:13
DX: K21.9 Gastro-esophageal reflux disease without esophagitis; M67.871 Other specified disorders of synovium, right ankle and foot; M24.571 Contracture, right ankle; X58.XXXA Exposure to other specified factors, initial encounter; S86.191A Other injury of other muscle(s) and tendon(s) of posterior muscle group at lower leg level, right leg, initial encounter; Y92.89 Other specified places as the place of occurrence of the external cause; M21.41 Flat foot [pes planus] (acquired), right foot; I10 Essential (primary) hypertension

== ENCOUNTER 2019-02-08 18:57 | Inpatient (IN) ==
[2019-02-08 19:30] LABS: Basophils # (auto) 0.02 K/uL (0-0.2); Basophils % (auto) 0.2 %; Eosinophils # (auto) 0.03 K/uL (0-0.5); Eosinophils % (auto) 0.3 %; Hematocrit (blood only) 46.1 % (37-47); Hemoglobin 15.3 g/dL (12.0-16.0); Immature Granulocytes # (auto) 0.03 K/uL (0.00-0.02); Immature Granulocytes % (auto) 0.3 %; Lymphocytes # (auto) 1.03 K/uL (1.2-3.4); Lymphocytes % (auto) 8.7 %; Mean Corpuscular Hemoglobin 31.7 pg (25-34); Mean Corpuscular Hgb Conc 33.2 g/dL (32-36); Mean Corpuscular Volume 95.4 fL (80-100); Mean Platelet Volume 9.8 fL (7.4-10.4); Monocytes # (auto) 1.14 K/uL (0.11-0.59); Monocytes % (auto) 9.6 %; Neutrophils % (auto) 80.9 %; Platelet Count 295 K/uL (130-400); RDW Coefficient of Variation 12.8 % (11.5-14.5); RDW Standard Deviation 44.7 fL (36.4-46.3); Red Blood Count 4.83 M/uL (4.2-5.4); White Blood Count 11.85 K/uL (4.8-10.8)
[2019-02-08 19:36] LABS: iSTAT Creatinine 1.1 mg/dl (0.6-1.3); iSTAT Hemoglobin 16.3 g/dl (12.0-16.0); iSTAT Ionized Calcium 1.17 mmol/l (1.12-1.32); iSTAT Potassium 3.8 mEq/L (3.3-5.0)
[2019-02-08 19:41] LABS: INR 1.1 (0.9-1.1); Partial Thromboplastin Time 27.3 Seconds (21.0-31.0); Prothrombin Time 11.2 Seconds (9.0-12.0)
[2019-02-08] MEDS ORDERED: OPTIRAY 320 125ml IV PRN (19:41)
[2019-02-08 19:45] LABS: Albumin Level 3.3 gm/dl (3.4-5.0); BUN Creatinine Ratio 11.7 (10-20); Calcium 9.8 mg/dl (8.5-10.1); Creatinine Clr Calc Pharmacy 40.4 ml/min; Est GFR (African American) 47.2; Est GFR (Non-African American) 40.8; Potassium 3.7 mmol/L (3.5-5.1)
[2019-02-08 19:47] LABS: Albumin Globulin Ratio 0.6 (0.9-2); Bilirubin,Total 0.7 mg/dl (0.2-1); Globulin 5.3 gm/dl (2.5-4.0); Total Protein 8.6 gm/dl (6.4-8.2)
--- NOTE | 2019-02-08 20:02 | CT Scan Report ---
CT angio chest PE protocol CLINICAL HISTORY: 73 years-old Female presenting with dyspnea, right chest pain, clinical concern for pulmonary embolus. TECHNIQUE: Multidetector CT angiography of the chest was performed after administration of intravenou s contrast. 3-D volumetric and/or maximum intensity projection (MIP) images were subsequently reconst ructed for review. IV contrast: 117 mL of Optiray 320. One or more dose lowering techniques were used consistent with the principles of ALARA (as low as reasonably achievable), including automatic expos ure control, mA or kV adjustment to individual patient size, and/or use of iterative reconstruction. COMPARISON: None. CT DOSE (mGy.cm): The estimated cumulative dose is 394.85 mGy.cm. FINDINGS: Senior Mainframe Programmer Analyst topogram: Cardiomegaly. Pulmonary vasculature: The study is suboptimal for the assessment of the pulmonary vascular tree secondary to respiratory mo tion artifact. Extensive bilateral acute pulmonary emboli extending from the distal right and left ma in pulmonary arteries into lobar and segmental pulmonary arteries of all 5 lobes. Main pulmonary emperatriz ry enlarged measuring 3.5 cm in diameter. Mild flattening of the interventricular septum. No intracar diac filling defect. No reflux of contrast into the hepatic veins. Remaining chest: Soft tissues: Normal thyroid and thoracic inlet. No axillary, supraclavicular, mediastinal, or hilar lymphadenopathy. Atherosclerosis of the aorta. Partial annular and coronary artery calcification. Nor mal heart size. Small bilateral pleural effusions, which are simple appearing. Large mixed sliding ty pe and paraesophageal type hernia. Lungs and airways: No pneumothorax. Central airways patent. Pulmonary arteries are not significantly enlarged relative to adjacent bronchi. No interlobular septal thickening. Extensive dependent consoli dation volume loss consistent with passive atelectasis in the setting of the pleural effusions. No co nvincing additional infiltrate or consolidation allowing for respiratory motion artifact degradation of the evaluation of the lung parenchyma. Musculoskeletal: Degenerative changes of the spine. IMPRESSION: 1. Extensive bilateral acute pulmonary emboli involving the distal main right and left pulmonary art eries and all lobar arteries, involving all 5 lobes. Additionally, mild evidence of right heart strai n. Correlate clinically. 2. No evidence of pulmonary infarcts at this time. 3. Small bilateral pleural effusions with associated passive atelectasis. Electronically signed by: Thompson Odom M.D. 02/08/2019 8:00 PM
[2019-02-08] MEDS ORDERED: HEPARIN SOD 5,000 UNIT/0.5 ML VIAL ONE (20:09)
[2019-02-08] MEDS ORDERED: HEPARIN SOD (PORCINE) 1000 UNIT/ML 10 ML VIAL ONE (20:18)
[2019-02-08] MEDS ORDERED: POTASSIUM CHLORIDE 20 MEQ TABCR PO STA (20:23)
[2019-02-08] MEDS ORDERED: HEPARIN IV BOLUS 5,000 UNITS in SYRINGE 0 ML IV ONE (20:23)
[2019-02-08] MEDS: HEPARIN SODIUM/DEXTROSE 25,000 UNITS/500 ML BAG IV SCH (20:24)
[2019-02-08] MEDS ORDERED: FUROSEMIDE 40 MG in SYRINGE 0 ML IV ONE (20:26)
[2019-02-08] MEDS ORDERED: ACETAMINOPHEN 325 MG TAB PO STA (21:12)
--- NOTE | 2019-02-08 21:12 | History & Physical Report ---
Date of Service February 08, 2019 Assessment & Plan (1) Acute hypoxemic respiratory failure: Secondary to bilateral PE Possible heart failure from cardiac strain secondary to above Decreased mobility from recent RLE orthopedic procedure as potential provoking factor. hypertension, slightly elevated secondary discomfort, anxiety CRI, creatinine at baseline Hyperglycemia rule out DM past tobacco abuse. PCU Supplemental O2 Baseline ABG IV heparin (Patient has expressed interest in [facility] for home Rx.) Lasix 1 dose TTE RE possible heart failure secondary to bilateral PE Pulmonary consult RE respiratory failure Check hemoglobin A1c DVT prophylaxis. IV heparin Full code Total critical time was 45 minutes. History of Present Illness Chief Complaint: Shortness of breath Primary Care Provider: ELVI Johnson History obtained from patient, family, and records. Medical history significant for hypertension, GERD, arthritis, CRI (baseline creatinine 1.3), past tobacco abuse. Recent confinement under orthopedics service last December 2018 for RLE posterior tibial tendon dysfunction status post surgery. Patient discharged on aspirin twice daily prophylaxis for a month which patient complied with. Increased swelling noted on the right leg since surgery. No concerns on follow-up with orthopedic doctor yesterday. RLE cast removed yesterday. 2 days history of worsening shortness of breath especially on exertion, pleuritic substernal pain, dry cough symptoms, low-grade fever, no aspiration, no known sick contacts. At the ER, O2 sats noted to be 70s on room air. IV heparin started for bilateral PE found on CT. No prior episodes of PE/DVT in the past. No known family history. Up-to-date with cancer screening. 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 Allergies Allergy/AdvReac Type Severity Reaction Status Date / Time No Known Allergies Allergy Unknown Verified 02/08/19 22:21 Home Medications Home Medications Medication Instructions Recorded Confirmed Type Allergy Relief (cetirizine) 10 mg PO QAM 12/05/18 02/08/19 History amlodipine [Norvasc] 5 mg PO QAM 12/05/18 02/08/19 History omeprazole 20 mg PO QAM 12/05/18 02/08/19 History Past Med/Surg History Medical History Frequency of urination GERD (gastroesophageal reflux disease) Hearing deficit Hiatal hernia "small, fixed" per 10/2018 CXR Hypertension Surgical History History of ankle surgery RECONSTRUCTION OF LEFT ANKLE Hx of bladder repair surgery Hx of hysterectomy Hx of total knee replacement RIGHT AND LEFT Hx of tubal ligation PONV (postoperative nausea and vomiting) Family History Other Family history non-contributory Social History Preferred Language: Austrian Communication Ability: Unable Science Consultant Required: No Beliefs That Will Affect Care: None marital status: Current Living Situation: Family Current Living Situation Comment: Sister Feels Safe at Home: Yes Safety Concerns: Feels Safe At This Time Smoking Status: Former smoker Smoking End Date: 1971 ; Second Hand Exposure: No ; Hx Alcohol Use: Yes Alcohol type: beer Hx Substance Use: No Review of Systems Review of Systems: As per HPI, all 10 systems reviewed, all other ROS negative Physical Exam Physical Exam: GENERAL: Comfortable, slightly anxious, obese, no respiratory distress SKIN: Normal color, warm HEENT: Bespectacled, pink palpebral conjunctivae, no ptosis, dry buccal mucosa, nasal cannula in place NECK : Supple, short neck, no tenderness CHEST : Decreased breath sounds , no tenderness HEART : Tachycardic , no obvious murmurs ABDOMEN: Some distention, nontender EXTREMITIES : RLE swelling, minimal RLE tenderness, no other conspicuous deformities noted NEUROLOGIC : Coherent, no facial asymmetry, no other gross focality Results & Data Vital Signs (Past 12 Hours) Vital Signs Temp Pulse Pulse Resp BP BP Pulse Ox 02/08/19 21:00 107 H 26 H 151/105 H 95 02/08/19 19:56 127 H 20 151/83 H 91 02/08/19 19:29 93 02/08/19 19:02 36.7 C 119 H 26 H 136/85 77 L Laboratory Results Laboratory Results WBC 11.85 K/uL (4.8-10.8) H 02/08/19 19:17 RBC 4.83 M/uL (4.2-5.4) 02/08/19 19:17 Hgb 15.3 g/dL (12.0-16.0) 02/08/19 19:17 POC Hgb 16.3 g/dl (12.0-16.0) H 02/08/19 19:22 Hct 46.1 % (37-47) 02/08/19 19:17 POC Hct 48 % (37-47) H 02/08/19 19:22 MCV 95.4 fL (80-100) 02/08/19 19:17 MCH 31.7 pg (25-34) 02/08/19 19:17 MCHC 33.2 g/dL (32-36) 02/08/19 19:17 RDW Std Deviation 44.7 fL (36.4-46.3) 02/08/19:17 RDW Coeff of Dominic 12.8 % (11.5-14.5) 02/08/19 19:17 Plt Count 295 K/uL (130-400) 02/08/19 19:17 MPV 9.8 fL (7.4-10.4) 02/08/19 19:17 Immature Gran % (Auto) 0.3 % 02/08/19 19:17 Neut % (Auto) 80.9 % 02/08/19 19:17 Lymph % (Auto) 8.7 % 02/08/19 19:17 [place] % (Auto) 9.6 % 02/08/19 19:17 Eos % (Auto) 0.3 % 02/08/19 19:17 Baso % (Auto) 0.2 % 02/08/19 19:17 Immature Gran # (Auto) 0.03 K/uL (0.00-0.02) H 02/08/19 19:17 Neut # (Auto) 9.60 K/uL (1.4-6.5) H 02/08/19 19:17 Lymph # (Auto) 1.03 K/uL (1.2-3.4) L 02/08/19 19:17 [place] # (Auto) 1.14 K/uL (0.11-0.59) H 02/08/19 19:17 Eos # (Auto) 0.03 K/uL (0-0.5) 02/08/19 19:17 Baso # (Auto) 0.02 K/uL (0-0.2) 02/08/19 19:17 PT 11.2 Seconds (9.0-12.0) 02/08/19 19:17 INR 1.1 (0.9-1.1) 02/08/19 19:17 APTT 27.3 Seconds (21.0-31.0) 02/08/19 19:17 PTT Ratio 1.0 02/08/19 19:17 POC Sodium 139 mEq/L (135-144) 02/08/19 19:22 Sodium 138 mmol/L (136-145) 02/08/19 19:17 POC Potassium 3.8 mEq/L (3.3-5.0) 02/08/19 19:22 Potassium 3.7 mmol/L (3.5-5.1) 02/08/19 19:17 POC Chloride 103 mEq/L (101-112) 02/08/19 19:22 Chloride 104 mmol/L (98-107) 02/08/19 19:17 Carbon Dioxide 24 mmol/L (21-32) 02/08/19 19:17 POC Total CO2 23 mEq/l (24-31) L 02/08/19 19:22 Anion Gap 10.0 (3-11) 02/08/19 19:17 POC Anion Gap 19.0 mmol/L (16-25) 02/08/19 19:22 POC BUN 15 mg/dl (7-18) 02/08/19 19:22 BUN 15 mg/dl (7-18) 02/08/19 19:17 Creatinine 1.29 mg/dl (0.6-1.2) H 02/08/19 19:17 POC Creatinine 1.1 mg/dl (0.6-1.3) 02/08/19 19:22 Est Cr Clr Drug Dosing 40.4 ml/min 02/08/19 19:17 Est GFR ( Amer) 47.2 02/08/19 19:17 Est GFR (Non-Af Amer) 40.8 02/08/19 19:17 BUN/Creatinine Ratio 11.7 (10-20) 02/08/19 19:17 Glucose 119 mg/dl (70-99) H 02/08/19 19:17 POC Glucose (other) 122 mg/dl (70-99) H 02/08/19 19:22 POC Lactic Acid Gerald 1.50 mmol/L (0.90-1.70) 02/08/19 19:30 Calcium 9.8 mg/dl (8.5-10.1) 02/08/19 19:17 POC Ioniz Calcium Mandi 1.17 mmol/l (1.12-1.32) 02/08/19 19:22 Total Bilirubin 0.7 mg/dl (0.2-1) 02/08/19 19:17 AST 19 U/L (15-37) 02/08/19 19:17 ALT 22 U/L (12-78) 02/08/19 19:17 Alkaline Phosphatase 132 U/L (45-117) H 02/08/19 19:17 POC Troponin I 0.27 ng/ml (0-0.045) H 02/08/19 19:25 Total Protein 8.6 gm/dl (6.4-8.2) H 02/08/19 19:17 Albumin 3.3 gm/dl (3.4-5.0) L 02/08/19 19:17 Globulin 5.3 gm/dl (2.5-4.0) H 02/08/19 19:17 Albumin/Globulin Ratio 0.6 (0.9-2) L 02/08/19 19:[address] chest: 1. Extensive bilateral acute pulmonary emboli involving the distal main right and left pulmonary arteries and all lobar arteries, involving all 5 lobes. Additionally, mild evidence of right heart strain. Correlate clinically. 2. No evidence of pulmonary infarcts at this time. 3. Small bilateral pleural effusions with associated passive atelectasis. RLE venous Doppler: Occlusive to nearly occlusive deep venous thrombosis extensively in the calf veins as well as involving the popliteal vein. EKG as per my interpretation: Rate 120, sinus tachycardia, LAD, LAFB T wave inversion inferior leads, anterolateral leads
[2019-02-08] MEDS ORDERED: FUROSEMIDE 40 MG/4 ML VIAL IV STA (21:24)
[2019-02-08 21:39] LABS: Base Excess ABG -0.5 mEq/L (-9-1.8); HCO3 ABG 21 mmol/L (19-24); Oxygen Saturation ABG 90.7 % (90-95); PCO2 ABG 28 mmHg (35-46); PO2 ABG 54 mm/Hg (80-95)
[2019-02-08 21:40] LABS: Allen Test Pos (Pos)
--- NOTE | 2019-02-08 21:59 | Ultrasound Report ---
US venous doppler LE RT CLINICAL HISTORY: 73 years-old Female presenting with pain eval for dvt. TECHNIQUE: Real-time grayscale and color and spectral Doppler ultrasound imaging of the veins of the right lower extremity was performed. Compression and augmentation were also utilized. COMPARISON: None. FINDINGS: RIGHT: Common femoral vein: Patent. Greater saphenous vein (superficial): Patent. Deep femoral vein: Patent. Femoral vein: Patent. Popliteal vein: Nearly occlusive thrombus within the popliteal vein. Calf veins: Thrombus throughout the calf veins including one of the 2 duplicated anterior tibial vein s as well as the posterior tibial and peroneal veins. Other: None. IMPRESSION: Occlusive to nearly occlusive deep venous thrombosis extensively in the calf veins as well as involvi ng the popliteal vein. The report will be called/faxed according to standard departmental protocol for a critical finding. Electronically signed by: Thompson Odom M.D. 02/08/2019 9:57 PM
[2019-02-08 22:01] LABS: Thyroid Stimulating Hormone 0.707 uIu/ml (0.300-4.500)
[2019-02-08 22:29] LABS: Influenza A virus by PCR Neg for Influ A (Neg); Influenza B virus by PCR Neg for Influ B (Neg)
[2019-02-08 22:36] LABS: Appearance Urine Clear (Clear); Bilirubin Urine Negative (Negative); Blood Urine Negative (Negative); Color Urine Yellow; Glucose Urine UA Negative (Negative); Ketones Urine Negative (Negative); Leukocyte Esterase Urine Negative (Negative); Nitrite Urine Negative (Negative); Protein Urine Negative (Negative); Specific Gravity Urine 1.043 (1.000-1.030); Urobilinogen Urine Negative (Negative); pH Urine 5.5 (4.5-7.5)
[2019-02-08] MEDS ORDERED: PROMETHAZINE HCL 12.5 MG in SODIUM CHLORIDE 0.9% 50 ML IV PRN (22:37)
[2019-02-08] MEDS ORDERED: HYDROmorphone INJ 0.5 MG/0.5 ML SYR IV PRN (22:37)
[2019-02-08] MEDS ORDERED: OXYCODONE/ACETAMINOPHEN 5mg/325mg TAB PO PRN (22:37)
[2019-02-08] MEDS: guaiFENesin 600 MG TABCR PO SCH (23:33)
--- NOTE | 2019-02-09 00:26 | Emergency Department Note ---
Entered by Mary Dsouza acting as a scribe for Jason Nunez MD History of Present Illness General Chief complaint: Shortness of Breath/Dyspnea Stated complaint: POST SURGERY - SOB, COUGH, NAUSEA Source: patient History of Present Illness Onset (ago): day(s) (gradually yesterday) Location: chest and back (right upper) Maximum Pain Intensity: 8 Quality: + sharp (right upper back pain) and + other (SOB) Associated symptoms: + cough (dry) and + other (Positive upper back pain, fever of 100.4, nausea. Negative past hx of emphysema, COPD, heart failure, previous blood clots in her lungs) The patient is a 73 year old female who presents to the ED with complaints of SOB beginning yesterday. She reports she had a surgery on her right foot done by Sajan Smyth on 12/23/18. She states her SOB came on gradually yesterday. She also developed right upper back pain yesterday which she describes as sharp. She notes she has had a fever of 100.4 today, a dry cough, and nausea. Pt denies a past hx of emphysema, COPD, heart failure, previous blood clots in her lungs. She is not on blood thinners. Home Medications Home Medications Medication Instructions Recorded Confirmed Type Allergy Relief (cetirizine) 10 mg PO QAM 12/05/18 02/08/19 History amlodipine [Norvasc] 5 mg PO QAM 12/05/18 02/08/19 History omeprazole 20 mg PO QAM 12/05/18 02/08/19 History Allergies Allergy/AdvReac Type Severity Reaction Status Date / Time No Known Allergies Allergy Unknown Verified 02/08/19 22:21 Past Med/Surg History Medical History Frequency of urination GERD (gastroesophageal reflux disease) Hearing deficit Hiatal hernia "small, fixed" per 10/2018 CXR Hypertension Surgical History History of ankle surgery RECONSTRUCTION OF LEFT ANKLE Hx of bladder repair surgery Hx of hysterectomy Hx of total knee replacement RIGHT AND LEFT Hx of tubal ligation PONV (postoperative nausea and vomiting) Social History Preferred Language: Tamaz[place] Communication Ability: Effective 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 and A total of 10 systems reviewed and were otherwise negative Physical Exam Vital Signs Vital Signs - 24 hr 02/08/19 19:02 02/08/19 19:29 02/08/19 19:56 Temperature 36.7 C Temperature Source Oral Sepsis Recent Fever Within 48 Hours Yes Sepsis New/Unexplained Change in Mental Status No Sepsis Action Taken by Nursing No Action Required Pulse Rate 119 H Pulse Rate [Bilateral] 127 H Respiratory Rate 26 H 20 Blood Pressure 136/85 Blood Pressure [Left Arm] 151/83 H Blood Pressure Mean 102 Blood Pressure Mean [Left Arm] 105 Pulse Oximetry 77 L 93 91 Oxygen Delivery Method Room Air Nasal Cannula Nasal Cannula Oxygen Flow Rate 6 6 02/08/19 21:00 Temperature Temperature Source Sepsis Recent Fever Within 48 Hours Sepsis New/Unexplained Change in Mental Status Sepsis Action Taken by Nursing Pulse Rate Pulse Rate [Bilateral] 107 H Respiratory Rate 26 H Blood Pressure Blood Pressure [Left Arm] 151/105 H Blood Pressure Mean Blood Pressure Mean [Left Arm] 120 Pulse Oximetry 95 Oxygen Delivery Method Nasal Cannula Oxygen Flow Rate 6 Constitutional: Vital signs reviewed. The patient is hypoxemic. She is tachycardic. Pressure is elevated. Eyes: Pupils are equal round reactive to light. Conjunctiva are noninjected. ENT: Pharynx is clear without erythema or exudate. Mucous membranes are moist. Neck supple without meningeal signs. Respiratory: Clear to auscultation bilaterally. Breath sounds are equal bilaterally. Cardiovascular: Tachycardic rate and regular rhythm. Heart rate is 120. No rubs or gallops. GI: Soft, nondistended and nontender. Bowel sounds are present. Musculoskeletal: Edema to the RLE with calf tenderness. Integumentary: No cyanosis. Neurological: The patient is awake and alert. No focal deficits. Psychiatric: Normal affect. Course 191: Past medical records reviewed. The patient was evaluated in room A11. A complete history and physical exam was performed. 1999: I discussed her CT results with her. I also talked to her family. Will start on heparin once confirmation from radiology. Heart rate is still elevated. Pulse ox is 95% on RA. 2006: Discussed the patient's case with Dr. Velázquez, [facility] Hospitalist. The patient will be evaluated for further management. 2014: I reevaluated the patient at this time. I let her know the confirmation by radiology as well as her blood test results. 2141: I checked on the patient at this time. Hemodynamically stable. Tachycardia is improved. Heart rate is 104. Ultrasound of leg performed shows popliteal and calf DVT. Administered Medications Guaifenesin (Mucinex) 600 mg PO Q12 DAVID Stop: 03/10/19 21:19 Last Admin: 02/08/19 23:33 Dose: 600 mg Documented by: [id number] Heparin Sodium/Dextrose (Heparin Sodium/Dextrose) 25,000 units in 500 mls @ 24 mls/hr IV .[id number] DAVID; Protocol Stop: 03/10/19 19:59 Last Titration: 02/08/19 23:19 Dose: 1,200 units/hr, 24 mls/hr Documented by: [id number] Cosigned by: [id number] Admin: 02/08/19 20:24 Dose: 1,200 units/hr, 24 mls/hr Documented by: [id number] Cosigned by: [id number] Discontinued Medications Acetaminophen (Tylenol) 325 mg PO NOW STA Stop: 02/08/19 21:13 Last Admin: 02/08/19 21:32 Dose: 325 mg Documented by: [id number] Furosemide (Lasix) 40 mg IV ONE STA Stop: 02/08/19 21:25 Last Admin: 02/08/19 21:32 Dose: 40 mg Documented by: [id number] Heparin Sodium/Dextrose () 1 ea IV NOW STA; Protocol Stop: 02/08/19 20:00 Last Admin: 02/08/19 21:25 Dose: Not Given Documented by: [id number] Heparin Sodium (Porcine) 5,000 (units/ Syringe) 5 mls @ 10 mls/min IV ONCE ONE Stop: 02/08/19 20:24 Last Admin: 02/08/19 20:23 Dose: 10 mls/min Documented by: [id number] Cosigned by: [id number] Ioversol (Optiray 320 125ml) 117 ml IV ONCE PRN PRN Reason: Interaction Checking Stop: 02/12/19 19:40 Last Admin: 02/08/19 19:41 Dose: 117 ml Documented by: [id number] Potassium Chloride (Klor-Con M20) 40 meq PO NOW STA Stop: 02/08/19 20:24 Last Admin: 02/08/19 21:31 Dose: 40 meq Documented by: [id number] Medical Decision Making Differential Diagnosis Differential diagnosis: Etiologies such as PE, saddle embolus, pneumonia, sepsis, as well as others were entertained. Medical Records Attestation: I reviewed the patient's medical records. I did perform a limited focused review of portions of the patient's old chart on the electronic medical record. She was admitted in December for an operation to her RLE done by Sajan Smyth. Home Medications Current Medication List: was personally reviewed by me Laboratory Data Attestation: I reviewed the patient's lab results. Result diagrams: 02/08/19 19:17 02/08/19 19:17 Lab Results 02/08/19 02/08/19 02/08/19 Range/Units 19:17 19:17 19:17 WBC 11.85 H (4.8-10.8) K/uL RBC 4.83 (4.2-5.4) M/uL Hgb 15.3 (12.0-16.0) g/dL POC Hgb (12.0-16.0) g/dl Hct 46.1 (37-47) % POC Hct (37-47) % MCV 95.4 (80-100) fL MCH 31.7 (25-34) pg MCHC 33.2 (32-36) g/dL RDW Std Deviation 44.7 (36.4-46.3) fL RDW Coeff of Dominic 12.8 (11.5-14.5) % Plt Count 295 (130-400) K/uL MPV 9.8 (7.4-10.4) fL Immature Gran % (Auto) 0.3 % Neut % (Auto) 80.9 % Lymph % (Auto) 8.7 % [place] % (Auto) 9.6 % Eos % (Auto) 0.3 % Baso % (Auto) 0.2 % Immature Gran # (Auto) 0.03 H (0.00-0.02) K/uL Neut # (Auto) 9.60 H (1.4-6.5) K/uL Lymph # (Auto) 1.03 L (1.2-3.4) K/uL [place] # (Auto) 1.14 H (0.11-0.59) K/uL Eos # (Auto) 0.03 (0-0.5) K/uL Baso # (Auto) 0.02 (0-0.2) K/uL PT 11.2 (9.0-12.0) Seconds INR 1.1 (0.9-1.1) APTT 27.3 (21.0-31.0) Seconds PTT Ratio 1.0 ABG pH (7.35-7.45) ABG pCO2 (35-46) mmHg ABG pO2 (80-95) mm/Hg ABG HCO3 (19-24) mmol/L ABG O2 Saturation (90-95) % ABG Base Excess (-9-1.8) mEq/L Darshan Test (Pos) Barometric Pressure mm/Hg Oxygen Given POC Sodium (135-144) mEq/L Sodium 138 (136-145) mmol/L POC Potassium (3.3-5.0) mEq/L Potassium 3.7 (3.5-5.1) mmol/L POC Chloride (101-112) mEq/L Chloride 104 (98-107) mmol/L Carbon Dioxide 24 (21-32) mmol/L POC Total CO2 (24-31) mEq/l Anion Gap 10.0 (3-11) POC Anion Gap (16-25) mmol/L POC BUN (7-18) mg/dl BUN 15 (7-18) mg/dl Creatinine 1.29 H (0.6-1.2) mg/dl POC Creatinine (0.6-1.3) mg/dl Est Cr Clr Drug Dosing 40.4 ml/min Est GFR ( Amer) 47.2 Est GFR (Non-Af Amer) 40.8 BUN/Creatinine Ratio 11.7 (10-20) Glucose 119 H (70-99) mg/dl POC Glucose (other) (70-99) mg/dl POC Lactic Acid Gerald (0.90-1.70) mmol/L Lactate (0.4-2.0) mmol/L Calcium 9.8 (8.5-10.1) mg/dl POC Ioniz Calcium Mandi (1.12-1.32) mmol/l Magnesium (1.8-2.4) mg/dl Total Bilirubin 0.7 (0.2-1) mg/dl AST 19 (15-37) U/L ALT 22 (12-78) U/L Alkaline Phosphatase 132 H (45-117) U/L POC Troponin I (0-0.045) ng/ml Total Protein 8.6 H (6.4-8.2) gm/dl Albumin 3.3 L (3.4-5.0) gm/dl Globulin 5.3 H (2.5-4.0) gm/dl Albumin/Globulin Ratio 0.6 L (0.9-2) Procalcitonin (0-0.5) ng/ml TSH (0.300-4.500) uIu/ml 02/08/19 02/08/19 02/08/19 Range/Units 19:22 19:25 19:30 WBC (4.8-10.8) K/uL RBC (4.2-5.4) M/uL Hgb (12.0-16.0) g/dL POC Hgb 16.3 H (12.0-16.0) g/dl Hct (37-47) % POC Hct 48 H (37-47) % MCV (80-100) fL MCH (25-34) pg MCHC (32-36) g/dL RDW Std Deviation (36.4-46.3) fL RDW Coeff of Dominic (11.5-14.5) % Plt Count (130-400) K/uL MPV (7.4-10.4) fL Immature Gran % (Auto) % Neut % (Auto) % Lymph % (Auto) % [place] % (Auto) % Eos % (Auto) % Baso % (Auto) % Immature Gran # (Auto) (0.00-0.02) K/uL Neut # (Auto) (1.4-6.5) K/uL Lymph # (Auto) (1.2-3.4) K/uL [place] # (Auto) (0.11-0.59) K/uL Eos # (Auto) (0-0.5) K/uL Baso # (Auto) (0-0.2) K/uL PT (9.0-12.0) Seconds INR (0.9-1.1) APTT (21.0-31.0) Seconds PTT Ratio ABG pH (7.35-7.45) ABG pCO2 (35-46) mmHg ABG pO2 (80-95) mm/Hg ABG HCO3 (19-24) mmol/L ABG O2 Saturation (90-95) % ABG Base Excess (-9-1.8) mEq/L Darshan Test (Pos) Barometric Pressure mm/Hg Oxygen Given POC Sodium 139 (135-144) mEq/L Sodium (136-145) mmol/L POC Potassium 3.8 (3.3-5.0) mEq/L Potassium (3.5-5.1) mmol/L POC Chloride 103 (101-112) mEq/L Chloride (98-107) mmol/L Carbon Dioxide (21-32) mmol/L POC Total CO2 23 L (24-31) mEq/l Anion Gap (3-11) POC Anion Gap 19.0 (16-25) mmol/L POC BUN 15 (7-18) mg/dl BUN (7-18) mg/dl Creatinine (0.6-1.2) mg/dl POC Creatinine 1.1 (0.6-1.3) mg/dl Est Cr Clr Drug Dosing ml/min Est GFR ( Amer) Est GFR (Non-Af Amer) BUN/Creatinine Ratio (10-20) Glucose (70-99) mg/dl POC Glucose (other) 122 H (70-99) mg/dl POC Lactic Acid Gerald 1.50 (0.90-1.70) mmol/L Lactate (0.4-2.0) mmol/L Calcium (8.5-10.1) mg/dl POC Ioniz Calcium Mandi 1.17 (1.12-1.32) mmol/l Magnesium (1.8-2.4) mg/dl Total Bilirubin (0.2-1) mg/dl AST (15-37) U/L ALT (12-78) U/L Alkaline Phosphatase (45-117) U/L POC Troponin I 0.27 H (0-0.045) ng/ml Total Protein (6.4-8.2) gm/dl Albumin (3.4-5.0) gm/dl Globulin (2.5-4.0) gm/dl Albumin/Globulin Ratio (0.9-2) Procalcitonin (0-0.5) ng/ml TSH (0.300-4.500) uIu/ml 02/08/19 02/08/19 02/08/19 Range/Units 21:20 21:20 21:20 WBC (4.8-10.8) K/uL RBC (4.2-5.4) M/uL Hgb (12.0-16.0) g/dL POC Hgb (12.0-16.0) g/dl Hct (37-47) % POC Hct (37-47) % MCV (80-100) fL MCH (25-34) pg MCHC (32-36) g/dL RDW Std Deviation (36.4-46.3) fL RDW Coeff of Dominic (11.5-14.5) % Plt Count (130-400) K/uL MPV (7.4-10.4) fL Immature Gran % (Auto) % Neut % (Auto) % Lymph % (Auto) % [place] % (Auto) % Eos % (Auto) % Baso % (Auto) % Immature Gran # (Auto) (0.00-0.02) K/uL Neut # (Auto) (1.4-6.5) K/uL Lymph # (Auto) (1.2-3.4) K/uL [place] # (Auto) (0.11-0.59) K/uL Eos # (Auto) (0-0.5) K/uL Baso # (Auto) (0-0.2) K/uL PT (9.0-12.0) Seconds INR (0.9-1.1) APTT (21.0-31.0) Seconds PTT Ratio ABG pH (7.35-7.45) ABG pCO2 (35-46) mmHg ABG pO2 (80-95) mm/Hg ABG HCO3 (19-24) mmol/L ABG O2 Saturation (90-95) % ABG Base Excess (-9-1.8) mEq/L Darshan Test (Pos) Barometric Pressure mm/Hg Oxygen Given POC Sodium (135-144) mEq/L Sodium (136-145) mmol/L POC Potassium (3.3-5.0) mEq/L Potassium (3.5-5.1) mmol/L POC Chloride (101-112) mEq/L Chloride (98-107) mmol/L Carbon Dioxide (21-32) mmol/L POC Total CO2 (24-31) mEq/l Anion Gap (3-11) POC Anion Gap (16-25) mmol/L POC BUN (7-18) mg/dl BUN (7-18) mg/dl Creatinine (0.6-1.2) mg/dl POC Creatinine (0.6-1.3) mg/dl Est Cr Clr Drug Dosing ml/min Est GFR ( Amer) Est GFR (Non-Af Amer) BUN/Creatinine Ratio (10-20) Glucose (70-99) mg/dl POC Glucose (other) (70-99) mg/dl POC Lactic Acid Gerald (0.90-1.70) mmol/L Lactate 0.8 (0.4-2.0) mmol/L Calcium (8.5-10.1) mg/dl POC Ioniz Calcium Mandi (1.12-1.32) mmol/l Magnesium (1.8-2.4) mg/dl Total Bilirubin (0.2-1) mg/dl AST (15-37) U/L ALT (12-78) U/L Alkaline Phosphatase (45-117) U/L POC Troponin I (0-0.045) ng/ml Total Protein (6.4-8.2) gm/dl Albumin (3.4-5.0) gm/dl Globulin (2.5-4.0) gm/dl Albumin/Globulin Ratio (0.9-2) Procalcitonin < 0.05 (0-0.5) ng/ml TSH 0.707 (0.300-4.500) uIu/ml 02/08/19 Range/Units 21:20 WBC (4.8-10.8) K/uL RBC (4.2-5.4) M/uL Hgb (12.0-16.0) g/dL POC Hgb (12.0-16.0) g/dl Hct (37-47) % POC Hct (37-47) % MCV (80-100) fL MCH (25-34) pg MCHC (32-36) g/dL RDW Std Deviation (36.4-46.3) fL RDW Coeff of Dominic (11.5-14.5) % Plt Count (130-400) K/uL MPV (7.4-10.4) fL Immature Gran % (Auto) % Neut % (Auto) % Lymph % (Auto) % [place] % (Auto) % Eos % (Auto) % Baso % (Auto) % Immature Gran # (Auto) (0.00-0.02) K/uL Neut # (Auto) (1.4-6.5) K/uL Lymph # (Auto) (1.2-3.4) K/uL [place] # (Auto) (0.11-0.59) K/uL Eos # (Auto) (0-0.5) K/uL Baso # (Auto) (0-0.2) K/uL PT (9.0-12.0) Seconds INR (0.9-1.1) APTT (21.0-31.0) Seconds PTT Ratio ABG pH 7.50 H (7.35-7.45) ABG pCO2 28 L (35-46) mmHg ABG pO2 54 L (80-95) mm/Hg ABG HCO3 21 (19-24) mmol/L ABG O2 Saturation 90.7 (90-95) % ABG Base Excess -0.5 (-9-1.8) mEq/L Darshan Test Pos (Pos) Barometric Pressure 736.0 mm/Hg Oxygen Given 6 LITERS POC Sodium (135-144) mEq/L Sodium (136-145) mmol/L POC Potassium (3.3-5.0) mEq/L Potassium (3.5-5.1) mmol/L POC Chloride (101-112) mEq/L Chloride (98-107) mmol/L Carbon Dioxide (21-32) mmol/L POC Total CO2 (24-31) mEq/l Anion Gap (3-11) POC Anion Gap (16-25) mmol/L POC BUN (7-18) mg/dl BUN (7-18) mg/dl Creatinine (0.6-1.2) mg/dl POC Creatinine (0.6-1.3) mg/dl Est Cr Clr Drug Dosing ml/min Est GFR ( Amer) Est GFR (Non-Af Amer) BUN/Creatinine Ratio (10-20) Glucose (70-99) mg/dl POC Glucose (other) (70-99) mg/dl POC Lactic Acid Gerald (0.90-1.70) mmol/L Lactate (0.4-2.0) mmol/L Calcium (8.5-10.1) mg/dl POC Ioniz Calcium Mandi (1.12-1.32) mmol/l Magnesium (1.8-2.4) mg/dl Total Bilirubin (0.2-1) mg/dl AST (15-37) U/L ALT (12-78) U/L Alkaline Phosphatase (45-117) U/L POC Troponin I (0-0.045) ng/ml Total Protein (6.4-8.2) gm/dl Albumin (3.4-5.0) gm/dl Globulin (2.5-4.0) gm/dl Albumin/Globulin Ratio (0.9-2) Procalcitonin (0-0.5) ng/ml TSH (0.300-4.500) uIu/ml Imaging Data Radiologist's Impression: Radiology results as stated below per my review and the radiologist's interpretation: CT angio chest PE protocol CLINICAL HISTORY: 73 years-old Female presenting with dyspnea, right chest pain, clinical concern for pulmonary embolus. TECHNIQUE: Multidetector CT angiography of the chest was performed after a dministration of intravenous contrast. 3-D volumetric and/or maximum intensity projection (MIP) images were subsequently reconstructed for review. IV contrast: 117 mL of Optiray 320. One or more dose lowering techniques were used consistent with the principles of ALARA (as low as reasonably achievable), including automatic exposure control, mA or kV adjustment to individual patient size, and/or use of iterative reconstruction. COMPARISON: None. CT DOSE (mGy.cm): The estimated cumulative dose is 394.85 mGy.cm. FINDINGS: Hospital Secretary topogram: Cardiomegaly. Pulmonary vasculature: The study is suboptimal for the assessment of the pulmonary vascular tree secondary to respiratory motion artifact. Extensive bilateral acute pulmonary emboli extending from the distal right and left main pulmonary arteries into lobar and segmental pulmonary arteries of all 5 lobes. Main pulmonary artery enlarged measuring 3.5 cm in diameter. Mild flattening of the interventricular septum. No intracardiac filling defect. No reflux of contrast into the hepatic veins. Remaining chest: Soft tissues: Normal thyroid and thoracic inlet. No axillary, supraclavicular, mediastinal, or hilar lymphadenopathy. Atherosclerosis of the aorta. Partial annular and coronary artery calcification. Normal heart size. Small bilateral pleural effusions, which are simple appearing. Large mixed sliding type and paraesophageal type hernia. Lungs and airways: No pneumothorax. Central airways patent. Pulmonary arteries are not significantly enlarged relative to adjacent bronchi. No interlobular septal thickening. Extensive dependent consolidation volume loss consistent with passive atelectasis in the setting of the pleural effusions. No convincing additional infiltrate or consolidation allowing for respiratory motion artifact degradation of the evaluation of the lung parenchyma. Musculoskeletal: Degenerative changes of the spine. IMPRESSION: 1. Extensive bilateral acute pulmonary emboli involving the distal main right and left pulmonary arteries and all lobar arteries, involving all 5 lobes. Additionally, mild evidence of right heart strain. Correlate clinically. 2. No evidence of pulmonary infarcts at this time. 3. Small bilateral pleural effusions with associated passive atelectasis. Electronically signed by: Thompson Odom M.D. 02/08/2019 8:00 PM US venous doppler LE RT CLINICAL HISTORY: 73 years-old Female presenting with pain eval for dvt. TECHNIQUE: Real-time grayscale and color and spectral Doppler ultrasound imaging of the veins of the right lower extremity was performed. Compression and augmentation were also utilized. COMPARISON: None. FINDINGS: RIGHT: Common femoral vein: Patent. Greater saphenous vein (superficial): Patent. Deep femoral vein: Patent. Femoral vein: Patent. Popliteal vein: Nearly occlusive thrombus within the popliteal vein. Calf veins: Thrombus throughout the calf veins including one of the 2 duplicated anterior tibial veins as well as the posterior tibial and peroneal veins. Other: None. IMPRESSION: Occlusive to nearly occlusive deep venous thrombosis extensively in the calf veins as well as involving the popliteal vein. The report will be called/faxed according to standard departmental protocol for a critical finding. Electronically signed by: Thompson Odom M.D. 02/08/2019 9:57 PM ECG Data Attestation: I personally reviewed and interpreted this ECG as follows: Indication: SOB/dyspnea Rate (beats per minute): 120 Rhythm: sinus tachycardia Findings: + T-wave inversion and + left axis deviation; no PVC and no ST elevation Blood Pressure Blood Pressure Findings: Elevated blood pressure Blood Pressure Disposition: further management by hospitalist MIKE Narrative I did evaluate the patient as noted above. The patient is presenting with shortness of breath and right upper back pain. She denies any chest pain. IV access was established. The patient was placed on a continuous surveillance monitor. She is significantly hypoxemic and was placed on supplemental oxygen via nasal cannula. I did order and personally review the patient's 12-lead EKG as described above. She has sinus tachycardia. I did order and review the patient's blood work as noted in the electronic medical record. White count is 11.8. Creatinine is 1.2. Electrolytes are unremarkable. I did order a stat CT angio of the chest. I did review the images myself as well as the radiology report as described above. She does have multiple extensive pulmonary emboli involving all 5 lobes of the lung. She does have emboli involving the distal main right and left pulmonary arteries. There is mild evidence of right heart strain. I did discuss the test results with the patient and her family. I did start her on IV heparin with a bolus. She was placed on a heparin drip. Her tachycardia did improve. Her blood pressure remained elevated. Ultrasound of the right lower extremity demonstrates popliteal and tibial vein DVT. I did discuss the case with the hospitalist and top case assembler. Impression & Plan Multiple pulmonary emboli, Hypoxia, Elevated troponin, Left leg DVT Critical Care Time Critical Care Time: Yes Total Critical Care Time: 40 I have personally spent approximately 40 minutes of critical care time in the direct management of this patient. This includes bedside care, interpretation of diagnostic studies, and testing, discussion with consultants, patient, and family members, and other required patient management activities. This 40 minutes is in excess of all separately billable procedures. Discharge Plan Visit Data *Final* Discharge Date/Time: 02/08/19 22:14 Chief Complaint: Shortness of Breath/Dyspnea Stated Complaint: POST SURGERY - SOB, COUGH, NAUSEA ED Provider: Jason Nunez Discharge Problem: Multiple pulmonary emboli, Hypoxia, Elevated troponin, Left leg DVT Patient Disposition: Admitted As Inpatient Discharge Instructions Interventions: ED Discharge Assessment Last Done: 02/08/19 22:14 Discharge Problem: Left leg DVT Qualifiers: Affected thrombotic vein of extremity: popliteal Chronicity: unspecified Qualified Code(s): I82.432 - Acute embolism and thrombosis of left popliteal vein The scribe's documentation has been prepared under my direction and personally reviewed by me in its entirety. I confirm that the note above accurately reflects all work, treatment, procedures, and medical decision making performed by me.
[2019-02-09] MEDS ORDERED: XOPENEX/ATROVENT 1.25mg/0.5MG NEB COMBO NEB STA (01:44)
[2019-02-09] MEDS ORDERED: MAGNESIUM SULFATE / D5W 1 GM/100 ML BAG IV ONE ×2 (01:45→02:39)
[2019-02-09] MEDS ORDERED: IPRATROPIUM BROMIDE NEB SOLN 0.02% 2.5 ML VIAL INH STA (01:49)
[2019-02-09] MEDS ORDERED: LEVALBUTEROL 1.25MG/0.5ML NEB INH STA (01:49)
[2019-02-09] MEDS ORDERED: POTASSIUM CHLORIDE 20 MEQ TABCR PO STA (02:02)
[2019-02-09] MEDS ORDERED: FUROSEMIDE 40 MG in SYRINGE 0 ML IV ONE (02:15)
[2019-02-09 02:17] LABS: Basophils # (auto) 0.03 K/uL (0-0.2); Basophils % (auto) 0.3 %; Eosinophils # (auto) 0.05 K/uL (0-0.5); Eosinophils % (auto) 0.4 %; Hemoglobin 13.4 g/dL (12.0-16.0); Immature Granulocytes # (auto) 0.02 K/uL (0.00-0.02); Immature Granulocytes % (auto) 0.2 %; Lymphocytes # (auto) 1.81 K/uL (1.2-3.4); Lymphocytes % (auto) 15.8 %; Mean Corpuscular Hgb Conc 32.7 g/dL (32-36); Mean Corpuscular Volume 94.9 fL (80-100); Mean Platelet Volume 9.9 fL (7.4-10.4); Monocytes # (auto) 1.27 K/uL (0.11-0.59); Monocytes % (auto) 11.1 %; Neutrophils # (auto) 8.31 K/uL (1.4-6.5); Neutrophils % (auto) 72.2 %; Platelet Count 279 K/uL (130-400); RDW Coefficient of Variation 12.7 % (11.5-14.5); RDW Standard Deviation 44.1 fL (36.4-46.3); Red Blood Count 4.32 M/uL (4.2-5.4); White Blood Count 11.49 K/uL (4.8-10.8)
[2019-02-09 02:30] LABS: BUN Creatinine Ratio 11.5 (10-20); Calcium 8.8 mg/dl (8.5-10.1); Creatinine Clr Calc Pharmacy 42.2 ml/min; Est GFR (African American) 47.2; Est GFR (Non-African American) 40.8; Magnesium 1.7 mg/dl (1.8-2.4); Potassium 3.6 mmol/L (3.5-5.1)
[2019-02-09 02:38] LABS: Troponin I 0.299 ng/ml (0-0.045)
--- NOTE | 2019-02-09 05:50 | Communication Note ---
Date of Service: February 09, 2019 Made aware by RN of 6 to 7-second run SVT. Patient asymptomatic. AP PSVT CHF Initiate low-dose beta-celsa
[2019-02-09] MEDS ORDERED: METOPROLOL TARTRATE 25 MG TAB PO SCH (06:00)
[2019-02-09 06:09] LABS: Estimated Average Glucose 111 mg/dl; Hemoglobin A1C 5.5 % (4.5-5.6)
--- NOTE | 2019-02-09 07:18 | XRay Report ---
SINGLE VIEW CHEST CLINICAL HISTORY: Hypoxia. Known pulmonary embolus. FINDINGS: An AP, portable, upright chest radiograph is compared to study dated 11/03/2018 and correlat ed with chest CT dated 02/08/2019. The examination is degraded by portable technique and patient rota tion. There is a large hiatal hernia. The heart is mildly enlarged noting atherosclerotic calcifica tion of the thoracic aorta. The pulmonary vasculature is noncongested. There are low lung volumes. Th ere are small pleural effusions with bibasilar consolidation. No pneumothorax is seen. The skeletal s tructures are osteopenic. The bony thorax is grossly intact. Degenerative change is noted in the shou lders and thoracic spine. IMPRESSION: 1. Cardiomegaly without radiographic evidence of congestive failure. 2. Low lung volumes. 3. There are small pleural effusions with bibasilar consolidation. This likely represents atelectasis . Clinical correlation will be required. 4. Large hiatal hernia. Electronically signed by: Shawn Nunez M.D. 02/09/2019 7:16 AM
[2019-02-09] MEDS ORDERED: PERFLUTREN LIPID MICROSPHERE (DEFINITY) IV ONE (07:19)
[2019-02-09] MEDS: PANTOprazole 40 MG TAB PO SCH (09:01)
[2019-02-09] MEDS: AMLODIPINE BESYLATE 5 MG TAB PO SCH (09:01)
[2019-02-09] MEDS: CETIRIZINE HCL 10 MG TABLET PO SCH (09:01)
[2019-02-09] MEDS: guaiFENesin 600 MG TABCR PO SCH ×2 (09:01→20:37)
[2019-02-09] MEDS: HEPARIN SODIUM/DEXTROSE 25,000 UNITS/500 ML BAG IV SCH (13:33)
--- NOTE | 2019-02-09 15:36 | Hospitalist Progress Note ---
Date of Service February 09, 2019 Assessment & Plan (1) Multiple pulmonary emboli: (2) Acute hypoxemic respiratory failure: (3) DVT, lower extremity: Present on admission with worsening SOB Provoked B/L PE and DVT Had recent orthopedic surgery done on 12/23/18, Right foot CTA chest showed extensive bilateral acute pulmonary emboli involving the distal main right and left pulmonary arteries and all lobar arteries, involving all 5 lobes. Additionally, mild evidence of right heart strain Doppler LLE showed Occlusive to nearly occlusive deep venous thrombosis extensively in the calf veins as well as involving the popliteal vein. Continue IV heparin drip for now Discussed with patient and family about anticoagulant such as complication like bleeding Interested on the DOAC over the coumadin Will get an ECHO Pulm consult-pending Continue oxygen supplement Posterior tibial tendon dysfunction (PTTD) of right lower extremity Follow with ortho Incision healing well stable HTN BP stable Continue amlodipine CODE Status FULL CODE Disposition Will discharge once medically stable Subjective Pt was seen and examined Lying in bed with no distress with family at bedside Pt said that her breathing improves Denies any chest pain, palpitation and dizziness Physical Exam Physical Exam: General- No acute distress Head- atraumatic Eyes- PERRL, EOMI, ENT- oropharynx clear Neck- supple, no JVD Lungs- Diminished BS Heart- +tachycardia Abdomen- normal bowel sounds, soft, nontender Extremities- +edema R>L , healing incision R foot area Neuro- alert, oriented x 3; PERRL, EOMI; no facial palsy; no dysarthria Skin- warm & dry Results & Data Vital Signs (Past 12 Hours) Vital Signs Temp Pulse Pulse Resp BP Pulse Ox Pulse Ox 02/09/19 12:15 37.5 C 126 H 18 115/76 89 L 02/09/19 11:12 91 H 93 02/09/19 07:50 36.9 C 103 H 20 118/77 86 L 02/09/19 05:45 103 H 120/79 02/09/19 04:07 36.6 C 103 H 18 109/73 91
[2019-02-09] MEDS: ACETAMINOPHEN 325 MG TAB PO PRN (15:42)
--- NOTE | 2019-02-09 16:07 | Pulmonary Consultation ---
Date of Consultation February 09, 2019 Assessment & Plan (1) Multiple pulmonary emboli: Patient was recent surgery on December 23, 2018 Cast from foot removed on Wednesday of this week. Patient started on heparin drip. This is appropriate Lower extremity duplex showed clot in the right lower extremity At this point patient does not have an echocardiogram recommend echo to look for right heart strain and is much a CT stated that she had some minimal strain. Patient with improving symptoms Await echo results Continue to monitor on telemetry (2) DVT, lower extremity: Patient with recent surgery on the right foot DVTs located within the right calf and popliteal vein Heparin started Okay to ambulate Thank you for including us in the care of this patient. Please refer to Dr. Mccarthy's addendum for further recommendations. (3) Hypoxia: Supervising Physician Co-Signing Physician Notes Patient was seen and examined with Shawn Arroyo PA-C. I agree with his note a side for any additions/exceptions noted. Patient appears to have a provoked DVT and pulmonary embolism status post surgery. Likely the pulmonary embolism originated from her lower extremity. Recommend obtaining a baseline echocardiogram to look for RV strain. If there is substantial amount of RV strain, consideration for an IVC filter can be had. It does appear that she had a little bit of a troponin leak on admission. She does have some small bilateral effusions with some associated passive atelectasis which may be related to ongoing pulmonary infarction versus some CHF. No indication for thoracentesis at this present time. Once her oxygen requirements improve to less than 6 L, I would recommend transitioning her to a direct oral anticoagulant. Additionally, recommend obtaining a repeat chest x- ray in 6 to 8 weeks to follow-up on the atelectasis and effusions noted on the CT chest. A proBNP could also be considered to evaluate for CHF and establish her baseline as well. History of Present Illness Attending Physician: Rigoberto Quiñones MD History of Present Illness Attending: Dr. Mccarthy This is a 73 yo female with a PMH of recent right foot surgery, bladder suspension, hysterectomy, hiatal hernia, HTN, GERD, hearing loss. The patienty underwent surgery to her right foot 12/23/[address] Anna. At that time, she went to stay with her sister to convalesce. Since leaving the hospital, she has felt "off" and not well. She has been primarily sedentary but not lethargic. She denies fever or signs of infection since surgery. About 3 days ago, on Wednesday, she began feeling short of breath. She presented to her orthopod and had the cast removed on Wednesday. It was felt at that time that she probably was still in recovery phase and was sent home. She continued to have progressive SOB and presented to the [facility] ED and was found to nearly occlusive thrombus within the right popliteal vein. There was also thrombus throughout the right calf veins including one of the 2 duplicated anterior tibial veins as well as the posterior tibial and peroneal veins. A CTA was then completed and revealed emboli in all five lobes. Patient was started on a heparin gtt. There was also evidence of mild heart strain. It appears as though an echo was not ordered but has since been requested and is pending. Patient denies current chest pain. No hemoptysis. No awareness of tachyarrhythmia. Persistent SOB requiring supplemental O2. No further LE pain. R LE edema is improved. She denies fever or chills. Patient has no other acute complaints. Allergies Allergy/AdvReac Type Severity Reaction Status Date / Time No Known Allergies Allergy Unknown Verified 02/08/19 22:21 Home Medications Home Medications Medication Instructions Recorded Confirmed Type Allergy Relief (cetirizine) 10 mg PO QAM 12/05/18 02/08/19 History amlodipine [Norvasc] 5 mg PO QAM 12/05/18 02/08/19 History omeprazole 20 mg PO QAM 12/05/18 02/08/19 History Patient History Medical History Frequency of urination GERD (gastroesophageal reflux disease) Hearing deficit Hiatal hernia "small, fixed" per 10/2018 CXR Hypertension Surgical History History of ankle surgery RECONSTRUCTION OF LEFT ANKLE Hx of bladder repair surgery Hx of hysterectomy Hx of total knee replacement RIGHT AND LEFT Hx of tubal ligation PONV (postoperative nausea and vomiting) Family History Other Family history non-contributory Social History Preferred Language: Sinhala Communication Ability: Unable 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 Pleasant Eyes: PERRL, conjunctivae normal, anicteric sclerae Neck: No appreciation of stridor or carotid bruits Respiratory: normal respiratory effort and symmetric chest movement; no respiratory distress and no paradoxical chest wall movement Auscultation: lungs clear to auscultation bilaterally and + diminished lung sounds Cardiovascular: Rate/Rhythm: regular rate and regular rhythm Musculoskeletal: Head/Neck/Chest: + abnormal palpation of chest wall Neurologic: A&OX3. Results & Data Vital Signs (Past 12 Hours) Vital Signs Temp Pulse Pulse Resp BP Pulse Ox Pulse Ox 02/09/19 15:38 37.1 C 109 H 20 109/69 91 02/09/19 15:00 93 02/09/19 12:15 37.5 C 126 H 18 115/76 89 L 02/09/19 11:12 91 H 93 02/09/19 07:50 36.9 C 103 H 20 118/77 86 L 02/09/19 05:45 103 H 120/79 02/09/19 04:07 36.6 C 103 H 18 109/73 91 Laboratory Results 02/09/19 02:00 02/09/19 02:[address] angio chest PE protocol CLINICAL HISTORY: 73 years-old Female presenting with dyspnea, right chest pain, clinical concern for pulmonary embolus. TECHNIQUE: Multidetector CT angiography of the chest was performed after administration of intravenous contrast. 3-D volumetric and/or maximum intensity projection (MIP) images were subsequently reconstructed for review. IV contrast: 117 mL of Optiray 320. One or more dose lowering techniques were used consistent with the principles of ALARA (as low as reasonably achievable), including automatic exposure control, mA or kV adjustment to individual patient size, and/or use of iterative reconstruction. COMPARISON: None. CT DOSE (mGy.cm): The estimated cumulative dose is 394.85 mGy.cm. FINDINGS: Cuff Slitter topogram: Cardiomegaly. Pulmonary vasculature: The study is suboptimal for the assessment of the pulmonary vascular tree secondary to respiratory motion artifact. Extensive bilateral acute pulmonary emboli extending from the distal right and left main pulmonary arteries into lobar and segmental pulmonary arteries of all 5 lobes. Main pulmonary artery enlarged measuring 3.5 cm in diameter. Mild flattening of the interventricular septum. No intracardiac filling defect. No reflux of contrast into the hepatic veins. Remaining chest: Soft tissues: Normal thyroid and thoracic inlet. No axillary, supraclavicular, mediastinal, or hilar lymphadenopathy. Atherosclerosis of the aorta. Partial annular and coronary artery calcification. Normal heart size. Small bilateral pleural effusions, which are simple appearing. Large mixed sliding type and paraesophageal type hernia. Lungs and airways: No pneumothorax. Central airways patent. Pulmonary arteries are not significantly enlarged relative to adjacent bronchi. No interlobular septal thickening. Extensive dependent consolidation volume loss consistent with passive atelectasis in the setting of the pleural effusions. No convincing additional infiltrate or consolidation allowing for respiratory motion artifact degradation of the evaluation of the lung parenchyma. Musculoskeletal: Degenerative changes of the spine. IMPRESSION: 1. Extensive bilateral acute pulmonary emboli involving the distal main right and left pulmonary arteries and all lobar arteries, involving all 5 lobes. Additionally, mild evidence of right heart strain. Correlate clinically. 2. No evidence of pulmonary infarcts at this time. 3. Small bilateral pleural effusions with associated passive atelectasis. Electronically signed by: Thompson Odom M.D. 02/08/2019 8:00 PM US venous doppler LE RT CLINICAL HISTORY: 73 years-old Female presenting with pain eval for dvt. TECHNIQUE: Real-time grayscale and color and spectral Doppler ultrasound imaging of the veins of the right lower extremity was performed. Compression and augmentation were also utilized. COMPARISON: None. FINDINGS: RIGHT: Common femoral vein: Patent. Greater saphenous vein (superficial): Patent. Deep femoral vein: Patent. Femoral vein: Patent. Popliteal vein: Nearly occlusive thrombus within the popliteal vein. Calf veins: Thrombus throughout the calf veins including one of the 2 duplicated anterior tibial veins as well as the posterior tibial and peroneal veins. Other: None. IMPRESSION: Occlusive to nearly occlusive deep venous thrombosis extensively in the calf veins as well as involving the popliteal vein. The report will be called/faxed according to standard departmental protocol for a critical finding. Electronically signed by: Thompson Odom M.D. 02/08/2019 9:57 PM PG Care Time/CCT Total # of Minutes Spent Total Time Spent with Patient: Total time spent is greater than 50% in coordination of care (as documented) at patient's floor/unit and/or counseling patient: 45
[2019-02-09] MEDS ORDERED: TRAMADOL HCL 50 MG TABLET PO PRN (16:54)
[2019-02-09] MEDS: METOPROLOL TARTRATE 25 MG TAB PO SCH (20:37)
[2019-02-10 06:40] LABS: Partial Thromboplastin Ratio 1.7
[2019-02-10 06:58] LABS: Partial Thromboplastin Time 46.1 Seconds (21.0-31.0)
[2019-02-10] MEDS: AMLODIPINE BESYLATE 5 MG TAB PO SCH (08:30)
[2019-02-10] MEDS: guaiFENesin 600 MG TABCR PO SCH ×2 (08:31→21:06)
[2019-02-10] MEDS: METOPROLOL TARTRATE 25 MG TAB PO SCH ×2 (08:31→21:06)
[2019-02-10] MEDS: CETIRIZINE HCL 10 MG TABLET PO SCH (08:31)
[2019-02-10] MEDS: PANTOprazole 40 MG TAB PO SCH (08:31)
[2019-02-10] MEDS: HEPARIN SODIUM/DEXTROSE 25,000 UNITS/500 ML BAG IV SCH (10:16)
[2019-02-10 10:25] LABS: BUN Creatinine Ratio 13.5 (10-20); Creatinine Clr Calc Pharmacy 40.9 ml/min; Est GFR (African American) 45.1; Est GFR (Non-African American) 38.9; Magnesium 2.1 mg/dl (1.8-2.4)
[2019-02-10 10:31] LABS: Troponin I 0.08 ng/ml (0-0.045)
--- NOTE | 2019-02-10 11:46 | Pulmonology Progress Note ---
Date of Service February 10, 2019 Assessment & Plan (1) Multiple pulmonary emboli: I think it is safe to switch her to a direct oral anticoagulant. Her echo does not reveal any significant RV strain. She will need to be anticoagulated for 6 months given the size of the pulmonary embolism. I think her hypoxemia will improve with time as the pulmonary embolism is resorbed by her body. Weight loss is also advised given that her BMI is 33. Recommend a repeat chest x-ray in 6 to 8 weeks to follow-up knee effusions. Pulmonary will sign off. Please call with questions. Thank you for the consult. (2) DVT, lower extremity: Anticoagulation as noted above. Recommend physical therapy and Occupational Therapy. (3) Hypoxia: Subjective Patient is currently on 3 L of nasal cannula and saturating in the low 90s. She feels better overall. She denies any chest pain. She does have some swelling in her right lower extremity. She denies any nausea or vomiting. She is eager to go home. Physical Exam Constitutional: WD/WN, vitals as above Eyes: PERRL, conjunctivae normal, anicteric sclerae Respiratory: normal respiratory effort and symmetric chest movement; no respiratory distress and no paradoxical chest wall movement Auscultation: lungs clear to auscultation bilaterally and + diminished lung sounds Cardiovascular: Rate/Rhythm: regular rate and regular rhythm Musculoskeletal: Head/Neck/Chest: + abnormal palpation of chest wall Psychiatric: A+Ox3, euthymic affect Results & Data Vital Signs (Past 12 Hours) Vital Signs Temp Pulse Resp BP Pulse Ox 02/10/19 07:05 98.6 F 99 H 16 110/72 92 02/10/19 04:45 98.8 F 111 H 22 120/80 90 02/10/19 00:02 92 02/09/19 23:58 98.2 F 97 H 20 122/76 I personally reviewed the patient's pertinent labs and imaging studies. PG Care Time/CCT Total # of Minutes Spent Total Time Spent with Patient: Total time spent is greater than 50% in coordination of care (as documented) at patient's floor/unit and/or counseling patient:
[2019-02-10] MEDS: ACETAMINOPHEN 325 MG TAB PO PRN (17:42)
--- NOTE | 2019-02-10 19:22 | Hospitalist Progress Note ---
Date of Service February 10, 2019 Assessment & Plan (1) Multiple pulmonary emboli: (2) Acute hypoxemic respiratory failure: Present on admission with worsening SOB Provoked B/L PE and DVT Had recent orthopedic surgery done on 12/23/18, Right foot CTA chest showed extensive bilateral acute pulmonary emboli involving the distal main right and left pulmonary arteries and all lobar arteries, involving all 5 lobes. Additionally, mild evidence of right heart strain. Discussed with patient and family about anticoagulant such as complication like bleeding ECHO showed normal wall motion with EF 55-60% Interested on the DOAC over the coumadin Pulm consult on board Continue oxygen supplement Will change IV heparin drip to eliquis Will need to be on anticoagulant for 6 months Continue monitor (3) DVT, lower extremity: Had recent orthopedic surgery done on 12/23/18, Right foot Doppler LLE showed Occlusive to nearly occlusive deep venous thrombosis extensively in the calf veins as well as involving the popliteal vein. On IV heparin drip for now, will transition to Eliquis Case management check with the jc and will cost $15 Posterior tibial tendon dysfunction (PTTD) of right lower extremity Follow with ortho Incision healing well Case [facility] today and recommended partial weight bearing and high tight boot PT/OT eval stable Elevated Troponin Due to PE Troponin trending down ECHO showed no wall motion abnormality Denies any chest pain HTN BP stable Continue amlodipine CODE Status FULL CODE Disposition Will discharge once medically stable Subjective Pt was seen and examined Sitting in chair with no distress Pt said that her breathing seem much better She continues to require oxygen supplement Denies any chest pain, palpitation and dizziness Physical Exam Physical Exam: General- No acute distress Head- atraumatic Eyes- PERRL, EOMI, ENT- oropharynx clear Neck- supple, no JVD Lungs- Diminished BS Heart- +tachycardia Abdomen- normal bowel sounds, soft, nontender Extremities- +edema R>L , healing incision R foot area Neuro- alert, oriented x 3; PERRL, EOMI; no facial palsy; no dysarthria Skin- warm & dry Results & Data Vital Signs (Past 12 Hours) Vital Signs Temp Pulse Resp BP Pulse Ox 02/10/19 15:10 37.0 C 101 H 20 99/62 L 91 02/10/19 11:15 36.8 C 94 H 16 112/74 94
[2019-02-10] MEDS: APIXABAN 5 MG TABLET PO SCH (21:05)
[2019-02-11 07:21] LABS: Partial Thromboplastin Ratio 1.3; Partial Thromboplastin Time 34.5 Seconds (21.0-31.0)
[2019-02-11] MEDS: CETIRIZINE HCL 10 MG TABLET PO SCH (08:28)
[2019-02-11] MEDS: AMLODIPINE BESYLATE 5 MG TAB PO SCH (08:28)
[2019-02-11] MEDS: APIXABAN 5 MG TABLET PO SCH ×2 (08:28→21:06)
[2019-02-11] MEDS: PANTOprazole 40 MG TAB PO SCH (08:29)
[2019-02-11] MEDS: METOPROLOL TARTRATE 25 MG TAB PO SCH ×2 (08:29→21:06)
[2019-02-11] MEDS: guaiFENesin 600 MG TABCR PO SCH ×2 (08:29→21:06)
--- NOTE | 2019-02-11 14:56 | Hospitalist Progress Note ---
Date of Service February 11, 2019 Assessment & Plan (1) Multiple pulmonary emboli: (2) Acute hypoxemic respiratory failure: Present on admission with worsening SOB Provoked B/L PE and DVT Had recent orthopedic surgery done on 12/23/18, Right foot CTA chest showed extensive bilateral acute pulmonary emboli involving the distal main right and left pulmonary arteries and all lobar arteries, involving all 5 lobes. Additionally, mild evidence of right heart strain. Discussed with patient and family about anticoagulant such as complication like bleeding ECHO showed normal wall motion with EF 55-60% Interested on the DOAC over the coumadin Pulm consult on board Continue oxygen supplement Plan to titrate off oxygen IV heparin drip transition to Eliquis Will need to be on anticoagulant for 6 months (3) DVT, lower extremity: Had recent orthopedic surgery done on 12/23/18, Right foot Doppler LLE showed Occlusive to nearly occlusive deep venous thrombosis extensively in the calf veins as well as involving the popliteal vein. On IV heparin drip for now, then transition to Eliquis Case management check with the jc and will cost $15 Continue Eliquis 10mg BID Posterior tibial tendon dysfunction (PTTD) of right lower extremity Follow with ortho Incision healing well Case [facility] today and recommended partial weight bearing and high tight boot PT/OT eval stable Elevated Troponin Due to PE Troponin trending down ECHO showed no wall motion abnormality Denies any chest pain HTN BP stable Continue amlodipine CODE Status FULL CODE Disposition Will discharge once medically stable Subjective Pt was seen and examined Sitting in chair with no distress Continue to require between 3L to 4L oxygen supplement Pt said that her breathing improves Denies any chest pain, palpitation, dizziness Physical Exam Physical Exam: General- No acute distress Head- atraumatic Eyes- PERRL, EOMI, ENT- oropharynx clear Neck- supple, no JVD Lungs- Diminished BS Heart- +tachycardia Abdomen- normal bowel sounds, soft, nontender Extremities- +edema R>L , healing incision R foot area Neuro- alert, oriented x 3; PERRL, EOMI; no facial palsy; no dysarthria Skin- warm & dry Results & Data Vital Signs (Past 12 Hours) Vital Signs Temp Pulse Pulse Resp BP BP Pulse Ox 02/11/19 11:35 36.6 C 93 H 20 106/70 94 02/11/19 11:05 87 L 02/11/19 07:14 36.4 C L 22 109/72 92 02/11/19 04:00 36.9 C 89 22 121/75 93 Pulse Ox Pulse Ox Pulse Ox 02/11/19 11:35 02/11/19 11:05 90 88 L 85 L 02/11/19 07:14 02/11/19 04:00
[2019-02-11] MEDS: ACETAMINOPHEN 325 MG TAB PO PRN (21:05)
[2019-02-12 06:56] LABS: Partial Thromboplastin Ratio 1.3; Partial Thromboplastin Time 34.2 Seconds (21.0-31.0)
[2019-02-12] MEDS: APIXABAN 5 MG TABLET PO SCH ×2 (08:11→20:25)
[2019-02-12] MEDS: AMLODIPINE BESYLATE 5 MG TAB PO SCH (08:11)
[2019-02-12] MEDS: guaiFENesin 600 MG TABCR PO SCH ×2 (08:11→20:25)
[2019-02-12] MEDS: CETIRIZINE HCL 10 MG TABLET PO SCH (08:11)
[2019-02-12] MEDS: PANTOprazole 40 MG TAB PO SCH (08:11)
[2019-02-12] MEDS: METOPROLOL TARTRATE 25 MG TAB PO SCH ×2 (08:12→20:25)
[2019-02-12 08:28] LABS: BUN Creatinine Ratio 17.3 (10-20); Calcium 8.7 mg/dl (8.5-10.1); Creatinine Clr Calc Pharmacy 52.2 ml/min; Est GFR (African American) 61.3; Est GFR (Non-African American) 52.9; Potassium 3.8 mmol/L (3.5-5.1)
--- NOTE | 2019-02-12 10:06 | Hospitalist Progress Note ---
Date of Service February 12, 2019 Assessment & Plan (1) Multiple pulmonary emboli: (2) Acute hypoxemic respiratory failure: Present on admission with worsening SOB Provoked B/L PE and DVT Had recent orthopedic surgery done on 12/23/18, Right foot CTA chest showed extensive bilateral acute pulmonary emboli involving the distal main right and left pulmonary arteries and all lobar arteries, involving all 5 lobes. Additionally, mild evidence of right heart strain. Discussed with patient and family about anticoagulant such as complication like bleeding ECHO showed normal wall motion with EF 55-60% Interested on the DOAC over the coumadin Pulm consult on board Continue oxygen supplement Continue to wean off the oxygen IV heparin drip transition to Eliquis Will need to be on anticoagulant for 6 months (3) DVT, lower extremity: Had recent orthopedic surgery done on 12/23/18, Right foot Doppler RLE showed Occlusive to nearly occlusive deep venous thrombosis extensively in the calf veins as well as involving the popliteal vein. On IV heparin drip for now, then transition to Eliquis Case management check with the jc and will cost $15 Continue Eliquis 10mg BID Posterior tibial tendon dysfunction (PTTD) of right lower extremity Follow with ortho Incision healing well Case discussed with [facility] staff and recommended partial weight bearing and high tight boot Pt is interested to go to rehab to get stronger before returning home since she does not have any help PT/OT eval stable Elevated Troponin Due to PE Troponin trending down ECHO showed no wall motion abnormality Denies any chest pain HTN BP stable Continue amlodipine CODE Status FULL CODE Disposition Waiting for placement to rehab Subjective Pt was seen and examined. Sitting in chair with no distress. Pt said is looking much better She said that she does have a dry cough at night and alot of acid reflux symptoms She said that she does not have much help at home She said that she is interested to go to rehab to get some therapy Denies any chest pain, palpitation, dizziness and SOB Physical Exam Physical Exam: General- No acute distress Head- atraumatic Eyes- PERRL, EOMI, ENT- oropharynx clear Neck- supple, no JVD Lungs- Diminished BS Heart- +tachycardia Abdomen- normal bowel sounds, soft, nontender Extremities- +edema R>L , healing incision R foot area Neuro- alert, oriented x 3; PERRL, EOMI; no facial palsy; no dysarthria Skin- warm & dry Results & Data Vital Signs (Past 12 Hours) Vital Signs Temp Pulse Resp BP Pulse Ox 02/12/19 04:21 36.7 C 89 22 104/69 93 02/11/19 23:19 36.4 C L 80 20 104/67 93
[2019-02-12] MEDS: ACETAMINOPHEN 325 MG TAB PO PRN (15:22)
[2019-02-13] MEDS: guaiFENesin 600 MG TABCR PO SCH (08:40)
[2019-02-13] MEDS: APIXABAN 5 MG TABLET PO SCH (08:40)
[2019-02-13] MEDS: PANTOprazole 40 MG TAB PO SCH (08:40)
[2019-02-13] MEDS: AMLODIPINE BESYLATE 5 MG TAB PO SCH (08:41)
[2019-02-13] MEDS: METOPROLOL TARTRATE 25 MG TAB PO SCH (08:41)
[2019-02-13] MEDS: CETIRIZINE HCL 10 MG TABLET PO SCH (08:41)
--- NOTE | 2019-02-13 08:51 | Hospitalist Progress Note ---
Date of Service February 13, 2019 Assessment & Plan (1) Multiple pulmonary emboli: (2) Acute hypoxemic respiratory failure: Present on admission with worsening SOB Provoked B/L PE and DVT Had recent orthopedic surgery done on 12/23/18, Right foot CTA chest showed extensive bilateral acute pulmonary emboli involving the distal main right and left pulmonary arteries and all lobar arteries, involving all 5 lobes. Additionally, mild evidence of right heart strain. Discussed with patient and family about anticoagulant such as complication like bleeding ECHO showed normal wall motion with EF 55-60% Was initially on iv heparin. Now transitioned to eliquis Taken off oxygen this AM, saturating 94-95% on room air. Will check 2 step ambulatory pulse ox to assess ambulatory oxygen needs Will need to be on anticoagulant for 6 months (3) DVT, lower extremity: Had recent orthopedic surgery done on 12/23/18, Right foot Doppler RLE showed Occlusive to nearly occlusive deep venous thrombosis extensively in the calf veins as well as involving the popliteal vein. Now transitioned from heparin to Eliquis Case management check with the jc and will cost $15 Continue Eliquis 10mg BID (4) Posterior tibial tendon dysfunction (PTTD) of right lower extremity: Follow with ortho outpatient Incision healing well Continue partial weight bearing and high tight boot Pt wants to go to rehab to get stronger before returning home since she does not have any help Will discuss with catalytic case operator PT/OT on board (5) Elevated troponin: Secondary to PE Troponin trending down(0.299-->0.08) ECHO showed no wall motion abnormality (6) Hypertension: BP stable Continue amlodipine Subjective Patient seen and evaluated Reports she still has dry cough Denied any chest pain, shortness of breath. Review of Systems Constitutional: no fever, no chills and no body aches Eyes: no worsening vision and no problem reported Ear, Nose, Mouth, Throat: + hearing loss (chronic hearing loss, uses hearing aid); no epistaxis and no bleeding gums Respiratory: + cough; no dyspnea, no dyspnea on exertion, no pain on inspiration and no sputum production Cardiovascular: no chest pain, no chest pain at rest, no dyspnea at rest and no paroxysmal nocturnal dyspnea Gastrointestinal: no abdominal pain, no early satiety, no nausea and no vomiting Genitourinary: no problem reported Musculoskeletal: Right leg swelling. Integumentary: no problem reported Neurologic: Right leg weakness since after surgery Hematologic / Lymphatic: no easy bleeding and no easy bruising Physical Exam Physical Exam: General: Well nourished, well hydrated , average body habitus, no acute distress and not ill appearing Eyes: PERRL, conjunctivae normal, not pale, anicteric sclerae, EOM intact bilaterally ENMT: External ear and nose normal, oropharynx normal, hearing aid in situ Neck: Normal visual inspection, no tracheal deviation, no swelling noted Respiratory: Normal respiratory effort, no respiratory distress, lungs clear to auscultation, no crackles and no wheezes Cardiovascular: Pulse is RRR. Heart Sounds: normal S1 and normal S2; no murmurs. Chest (Breasts): Chest: normal inspection of chest Gastrointestinal (Abdomen): Abdomen is not distended, soft, non-tender to palpation, no guarding, no palpable hepatosplenomegaly, normal bowel sounds Musculoskeletal: No cyanosis or clubbing, Right leg pitting edema. Clean hearing of surgical site on medial aspect of right foot Neurologic: Alert and oriented x 3, No focal weakness, sensation grossly intact Psychiatric: Alert and oriented x 3, euthymic affect, no depressed affect Results & Data Vital Signs (Past 12 Hours) Vital Signs Temp Pulse Pulse Resp BP Pulse Ox 02/13/19 07:37 89 19 132/85 94 02/13/19 04:24 36.3 C L 83 18 114/70 93 02/12/19 23:32 36.7 C 84 22 126/78 93
[2019-02-13 15:33] VITALS: BP 133/76; TEMP 97.9; O2SAT 92
--- NOTE | 2019-02-13 15:56 | Discharge Summary ---
Date of Service February 13, 2019 Admission HPI Per Admitting Provider History obtained from patient, family, and records. Medical history significant for hypertension, GERD, arthritis, CRI (baseline creatinine 1.3), past tobacco abuse. Recent confinement under orthopedics service last December 2018 for RLE posterior tibial tendon dysfunction status post surgery. Patient discharged on aspirin twice daily prophylaxis for a month which patient complied with. Increased swelling noted on the right leg since surgery. No concerns on follow-up with orthopedic doctor yesterday. RLE cast removed yesterday. 2 days history of worsening shortness of breath especially on exertion, pleur itic substernal pain, dry cough symptoms, low-grade fever, no aspiration, no known sick contacts. At the ER, O2 sats noted to be 70s on room air. IV heparin started for bilateral PE found on CT. No prior episodes of PE/DVT in the past. No known family history. Up-to-date with cancer screening. 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 Admission Exam Per Admitting Provider GENERAL: Comfortable, slightly anxious, obese, no respiratory distress SKIN: Normal color, warm HEENT: Bespectacled, pink palpebral conjunctivae, no ptosis, dry buccal mucosa, nasal cannula in place NECK : Supple, short neck, no tenderness CHEST : Decreased breath sounds , no tenderness HEART : Tachycardic , no obvious murmurs ABDOMEN: Some distention, nontender EXTREMITIES : RLE swelling, minimal RLE tenderness, no other conspicuous deformities noted NEUROLOGIC : Coherent, no facial asymmetry, no other gross focality Principal Diagnosis Acute hypoxemic respiratory failure due to Bilateral Pulmonary Embolism Right Lower extremity Deep Venous Thrombosis Discharge Exam General: Well nourished, well hydrated , average body habitus, no acute distress and not ill appearing Eyes: PERRL, conjunctivae normal, not pale, anicteric sclerae, EOM intact bilaterally ENMT: External ear and nose normal, oropharynx normal, hearing aid in situ Neck: Normal visual inspection, no tracheal deviation, no swelling noted Respiratory: Normal respiratory effort, no respiratory distress, lungs clear to auscultation, no crackles and no wheezes Cardiovascular: Pulse is RRR. Heart Sounds: normal S1 and normal S2; no murmurs. Chest (Breasts): Chest: normal inspection of chest Gastrointestinal (Abdomen): Abdomen is not distended, soft, non-tender to palpation, no guarding, no palpable hepatosplenomegaly, normal bowel sounds Musculoskeletal: No cyanosis or clubbing, Right leg pitting edema. Clean hea ring of surgical site on medial aspect of right foot Neurologic: Alert and oriented x 3, No focal weakness, sensation grossly intact Psychiatric: Alert and oriented x 3, euthymic affect, no depressed affect Discharge Data Allergies Allergy/AdvReac Type Severity Reaction Status Date / Time No Known Allergies Allergy Unknown Verified 02/08/19 22:21 Consultations 02/08/19 20:42 ED Decision to Admit Stat 02/08/19 22:37 Consult Pulmonology Routine 02/12/19 10:15 Consult Case Management - Discharge Planning Routine Ordered Studies 02/08/19 19:18 CT angio chest PE protocol Stat 1. Extensive bilateral acute pulmonary emboli involving the distal main right and left pulmonary arteries and all lobar arteries, involving all 5 lobes. Additionally, mild evidence of right heart strain. Correlate clinically. 2. No evidence of pulmonary infarcts at this time. 3. Small bilateral pleural effusions with associated passive atelectasis. US venous doppler LE RT Stat Occlusive to nearly occlusive deep venous thrombosis extensively in the calf veins as well as involving the popliteal vein. Hospital Course (1) Multiple pulmonary emboli: (2) Acute hypoxemic respiratory failure: Present on admission with worsening SOB Provoked B/L PE and DVT Had recent orthopedic surgery done on 12/23/18, Right foot CTA chest showed extensive bilateral acute pulmonary emboli involving the distal main right and left pulmonary arteries and all lobar arteries, involving all 5 lobes. Additionally, mild evidence of right heart strain. Discussed with patient and family about anticoagulant such as complication like bleeding ECHO showed normal wall motion with EF 55-60% Was initially on iv heparin. Now transitioned to eliquis Taken off oxygen this AM, saturating 94-95% on room air. Doing well on rrom air Will need to be on anticoagulant for 6 months (3) DVT, lower extremity: Had recent orthopedic surgery done on 12/23/18, Right foot Doppler RLE showed Occlusive to nearly occlusive deep venous thrombosis extensively in the calf veins as well as involving the popliteal vein. Now transitioned from heparin to Eliquis Case management check with the jc and will cost $15 Continue Eliquis 10mg BID for 4 more days and then 5mg bid (4) Posterior tibial tendon dysfunction (PTTD) of right lower extremity: Follow with ortho outpatient Incision healing well Continue partial weight bearing and high tight boot Discharged to rehab (5) Elevated troponin: Secondary to PE Troponin trending down(0.299-->0.08) ECHO showed no wall motion abnormality, normal systolic function (6) Hypertension: BP stable Continue amlodipine Total Time Total Time Spent Total Time Spent (In Minutes): 25 Discharge Plan Discharge Items Patient Disposition: Transfer [facility] Reason For Visit: RESP FAILURE Discharge Diagnosis: Acute hypoxemic respiratory failure due to Bilateral Pulmonary Embolism Right Lower extremity Deep Venous Thrombosis Condition on Discharge: Good Activity: Resume your previous activity Activity Comment: Per PT recommendations Non-emergency contact: Primary Care Provider Call non-emergency contact if: you have any medication questions and your symptoms worsen Follow-up/Referrals: Marifer Gomez CRNP [Primary Care Provider] - Diet: Heart Healthy Addtl Attending Provider Instructions: Ms Newman. You came to the hospital with shortness of breath, chest pain, dry cough and right leg swelling. Evaluation showed you had blood clots in your right leg and in both lungs. The risk factor for this is due to reduced ambulation and your recent right leg surgery last month. You were started on blood thinners by injection which has been changed to tablet. Please take the eliquis as prescribed. You will need to be on this medication for at least 6 months. You will need to take Eliquis 10mg twice a day for 4 more days, after which you start taking 5mg twice a day for 6 months. Another new medication (metoprolol) was also added to your home medications. Please ensure the Nursing facility Provider send a script for these to your pharmacy when you are being discharged from rehab. You needed oxygen for a short while in the hospital. You are being discharged to rehab. They will keep assessing you and if you need oxygen by the time you are being discharged from there, will make arrangements. It was a pleasure taking care of you. Pending Studies at Discharge: No Stand-Alone Forms: My [facility] Skilled Items Patient informed of condition?: Yes DNR: No Discharge Level of Care: Skilled Communicable Disease: No Discharge Prognosis: Stable Lines: None Urinary Catheter: No Medications and DC Order Prescriptions: New Eliquis 5 mg (74 tabs) tablets,dose pack 5 mg PO BID Qty: 74 RF: 0 acetaminophen [Mapap (acetaminophen)] 325 mg Tablet 650 mg PO Q6H PRN (Reason: pain) Qty: 30 RF: 0 metoprolol tartrate 25 mg Tablet 12.5 mg PO BID 30 Days Qty: 30 RF: 0 Eliquis 5 mg Tablet See Rx Instructions .ROUTE .COMPLEX Qty: 90 RF: 3 guaifenesin [Mucinex] 600 mg Tablet Extended Release 12hr 600 mg PO Q12 Qty: 30 RF: 0 Continued amlodipine [Norvasc] 5 mg Tablet 5 mg PO QAM RF: 0 omeprazole 20 mg Tablet,Delayed Release (Dr/Ec) 20 mg PO QAM RF: 0 Allergy Relief (cetirizine) 10 mg Capsule 10 mg PO QAM RF: 0 Discharge Orders: Discharge Order (Routine); Ordered 02/13/19 Ordered By: Loren Duarte Admission Data Admit Date/Time: 02/08/19 21:21 Attending Provider: Loren Duarte I. Admit Provider: Andi Velázquez Primary Care Provider: Marifer Gomez Other Providers: Andi Velázquez ; Andrew Mccarthy ; [facility] ; Rigoberto Quiñones Other Interventions: Discharge Summary Assessment (RN) Last Done: 02/13/19 16:00 DC Date/Time DO NOT enter until pt leaves facility: 02/13/19 16:25
[2019-02-13 16:05] VITALS: PULSE 89
== END 2019-02-13 16:25 | DRG 299 ==
LOC: ED 18:57 → SUATTDRO 21:21 → 2S 21:21

== ENCOUNTER 2021-08-15 12:06 | Inpatient (IN) ==
[2021-08-15] MEDS ORDERED: SODIUM CHLORIDE 0.9% 1000ML 1,000 ML IV SCH (12:45)
[2021-08-15 13:12] LABS: Basophils # (auto) 0.03 K/uL (0-0.2); Basophils % (auto) 0.3 %; Eosinophils # (auto) 0.14 K/uL (0-0.5); Eosinophils % (auto) 1.5 %; Hematocrit (blood only) 42.5 % (37-47); Hemoglobin 13.4 g/dL (12.0-16.0); Immature Granulocytes # (auto) 0.02 K/uL (0.00-0.02); Immature Granulocytes % (auto) 0.2 %; Lymphocytes # (auto) 1.66 K/uL (1.2-3.4); Lymphocytes % (auto) 17.7 %; Mean Corpuscular Hemoglobin 28.8 pg (25-34); Mean Corpuscular Hgb Conc 31.5 g/dL (32-36); Mean Corpuscular Volume 91.4 fL (80-100); Mean Platelet Volume 9.8 fL (7.4-10.4); Monocytes # (auto) 0.96 K/uL (0.11-0.59); Monocytes % (auto) 10.2 %; Neutrophils # (auto) 6.59 K/uL (1.4-6.5); Neutrophils % (auto) 70.1 %; Platelet Count 403 K/uL (130-400); RDW Standard Deviation 50.2 fL (36.4-46.3); Red Blood Count 4.65 M/uL (4.2-5.4)
[2021-08-15 13:24] LABS: INR 1.2 (0.9-1.1); Partial Thromboplastin Ratio 1.3; Partial Thromboplastin Time 36.7 Seconds (21.0-31.0); Prothrombin Time 12.3 Seconds (9.0-12.0)
--- NOTE | 2021-08-15 13:31 | Emergency Department Note ---
Impression & Plan Weakness, Acute hypotension, Fever, SHAMEKA (acute kidney injury) ED Provider Note NAME: JAYDON REAL AGE: 76 SEX: F : 1945 ARRIVES VIA: Ambulance INFORMANT: Patient, the patient's sister ED PROVIDER(S): Adama Fernandez DO CHIEF COMPLAINT: Weakness HPI: The patient is a 76-year-old female who [facility] for an evaluation of generalized weakness. The patient presented by ambulance. Apparently she has been getting weaker over the course of the last few weeks. She does live alone but has many family members that check on her constantly. The patient apparently went to the bathroom last evening and could not get off the toilet. She sat there for many hours because she could not stand. She does have a history of metastatic melanoma. She denies having any recent trauma. She states she does have a slight headache. She states she is not been eating or drinking correctly. Otherwise she states she has been compliant with her usual outpatient medications. She does take a blood thinner. The patient denies having any chest pain. She said that she has had no vomiting or black or bloody bowel moods. She is often seen by her primary care physician recently. ROS: See above HPI for pertinent positives & negatives. A total of 10 systems reviewed and were otherwise negative. PAST MEDICAL HISTORY: See Below PAST SURGICAL HISTORY: See Below FAMILY HISTORY: See Below SOCIAL HISTORY: See Below HOME MEDICATIONS: See Below ALLERGIES: See Below VITALS: See Below PHYSICAL EXAMINATION: GENERAL: Patient is awake and alert. She is nonanxious appearing but she is slow to answer questions. EYES: The conjunctivae are clear. The pupils are round and reactive. EARS, NOSE, MOUTH AND THROAT: The nose is without any evidence of any deformity. Mucous membranes are dry. NECK: The neck is nontender and supple. RESPIRATORY: Normal respiratory effort is noted there is no evidence of wheezing rhonchi or rales CARDIOVASCULAR: Tachycardic but regular heart sounds are noted auscultation. There is no murmur. GASTROINTESTINAL: The abdomen is soft. Abdomen is nontender. MUSCULOSKELETAL/EXTREMITIES: There is no evidence of gross deformity full range of motion is noted in the hips and shoulders. SKIN: The skin was warm and dry. Pedal edema was noted bilaterally. NEUROLOGIC: Patient is awake to verbal commands. She is oriented to person and place. She does recognize her sister who presented to the emergency department. The patient is unable to lift either leg off the bed. MEDICAL DECISION MAKING: The patient is a 76-year-old female who presented to the emergency department for evaluation of generalized weakness. The patient was unable to stand. She has very severe bilateral lower extremity weakness. She has a history of metastatic melanoma. She came to the emergency department with her sister who states that she normally is able to ambulate without difficulty and care for herself at home. The patient was treated with IV fluids in the emergency department. She was noted to have an elevated creatinine compared to her baseline. She was also started on empiric IV antibiotic. She did have a fever in the emergency department and was also noted to have low blood pressure on occasion. She was reevaluated multiple times. I discussed the patient's laboratory and radiographic studies with her. I also discussed her case with the on-call [facility] hospitalist. Triage Nursing notes reviewed. Prior medical records reviewed Vital Signs: reviewed and remarkable for hypotension and tachycardia. Differential diagnosis: Infection, dehydration, metabolic abnormality, hypo/hyperglycemia, electrolyte disturbance, anemia, hypoxia, cardiac sources, intracerebral event, toxicologic, neurologic, as well as other pathologies. ER treatment provided: See below Diagnostics interpreted by me: ECG: EKG was obtained in the emergency department. My interpretation is sinus tachycardia 109 bpm. There is no ectopy. Nonspecific ST segment abnormalities were noted. This was compared to a tracing from January 14, 2021. No specific changes were noted. Cardiac Monitoring: An order was placed for continuous cardiac monitoring. The monitor shows a rate of 105 bpm with sinus tachycardia. Laboratory studies: As stated above and show below. Imaging studies: See below Consultation(s): I discussed this case with Dr. Garcia [facility]. 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 No chemo or XRT GERD (gastroesophageal reflux disease) Hearing deficit Hiatal hernia Hx of pulmonary embolus 2018 s/p foot surgery, was on Eliquis for a few months. 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 Tinsley Surgical History H/O excision of mass History of ankle surgery RECONSTRUCTION OF LEFT ANKLE History of biopsy History of cataract surgery History of colonoscopy History of esophagogastroduodenoscopy (EGD) History of laryngoscopy Hx of bladder repair surgery Hx of foot surgery reconstructive right foot surgery (2019) Hx of hysterectomy Hx of total knee replacement RIGHT AND LEFT Hx of tubal ligation PONV (postoperative nausea and vomiting) Family History Mother Hearing loss Cancer Sister Hearing loss Cancer Other Breast cancer Family history non-contributory No family history of adverse response to anesthesia No family history of bleeding disorder Social History Smoking Status: Former smoker Second Hand Exposure: No; Hx Alcohol Use: Yes Alcohol type: beer Hx Substance Use: No Preferred Language: Bermudian Communication Ability: Effective 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 Beliefs That Will Affect Care: None marital status: Current Living Situation: Alone How many Children do You have: 2 Feels Safe at Home: Yes during the past year weight has: increased > 10 lbs Assistive Devices: Denture - Upper, Denture - Lower, Glasses and Walker Allergies Allergies Allergy/AdvReac Type Severity Reaction Status Date / Time tramadol Allergy Mild NASUEA/CONF Verified 01/15/21 08:49 USION cephalexin [From Keflex] AdvReac Mild upset Verified 01/15/21 08:49 stomach Home Meds Home Medications Medication Instructions Recorded Confirmed amlodipine 5 mg tablet (Norvasc) 5 mg PO QAM 12/05/18 08/15/21 omeprazole 20 mg tablet,delayed 20 mg PO QAM 12/05/18 08/15/21 release cholecalciferol (vitamin D3) 25 25 mcg PO QAM 12/11/19 08/15/21 mcg (1,000 unit) tablet (Vitamin D3) metoprolol tartrate 25 mg tablet 12.5 mg PO BID 03/26/20 08/15/21 diphenhydramine HCl 25 mg capsule 25 mg PO HS PRN cap 03/28/20 08/15/21 (Benadryl) multivitamin 1 tab PO QAM 04/25/20 08/15/21 cetirizine 10 mg tablet (Zyrtec) 10 mg PO QAM 01/14/21 08/15/21 apixaban 5 mg tablet (Eliquis) 5 mg PO DAILY 08/15/21 08/15/21 esomeprazole magnesium 20 mg 20 mg PO DAILY 08/15/21 08/15/21 capsule,delayed release montelukast 10 mg tablet 10 mg PO DAILY 08/15/21 08/15/21 Results & Data (ED) Vital Signs Vital Signs - 24 hr 08/15/21 12:15 08/15/21 12:16 08/15/21 12:30 Temperature 37.6 C H Temperature Source Oral Pulse Rate 111 H 109 H 112 H Pulse Rate [Apical] Pulse Rate from SpO2 Sensor 110 H Pulse Rhythm Regular Pulse Strength Normal Respiratory Rate 26 H 22 Respiratory Effort / Characteristics Non-Labored Respiratory Depth Respiratory Pattern Regular Blood Pressure 125/79 Blood Pressure [Right Arm] Blood Pressure Mean 94 Blood Pressure Mean [Right Arm] Blood Pressure Position Lying Pulse Oximetry 96 95 Oxygen Delivery Method Room Air Oxygen Flow Rate Sepsis Recent Fever Within 48 Hours Yes Sepsis New/Unexplained Change in Mental Status No Sepsis Action Taken by Nursing No Action Required 08/15/21 13:00 08/15/21 13:01 08/15/21 17:00 Temperature 38.2 C H Temperature Source Oral Pulse Rate 108 H Pulse Rate [Apical] 106 H Pulse Rate from SpO2 Sensor 110 H Pulse Rhythm Pulse Strength Respiratory Rate 24 Respiratory Effort / Characteristics Non-Labored Spontaneous Respiratory Depth Normal Respiratory Pattern Blood Pressure 117/60 Blood Pressure [Right Arm] 143/83 H Blood Pressure Mean 79 Blood Pressure Mean [Right Arm] 103 Blood Pressure Position Pulse Oximetry 93 95 Oxygen Delivery Method Room Air Nasal Cannula Oxygen Flow Rate 2 Sepsis Recent Fever Within 48 Hours Sepsis New/Unexplained Change in Mental Status Sepsis Action Taken by Nursing 08/15/21 17:59 08/15/21 18:02 Temperature 37.3 C Temperature Source Oral Pulse Rate Pulse Rate [Apical] 105 H Pulse Rate from SpO2 Sensor Pulse Rhythm Pulse Strength Respiratory Rate 20 Respiratory Effort / Characteristics Respiratory Depth Respiratory Pattern Blood Pressure Blood Pressure [Right Arm] 93/51 L Blood Pressure Mean Blood Pressure Mean [Right Arm] 65 Blood Pressure Position Pulse Oximetry 95 Oxygen Delivery Method Room Air Oxygen Flow Rate Sepsis Recent Fever Within 48 Hours Sepsis New/Unexplained Change in Mental Status Sepsis Action Taken by Assisted Medications Current Medication List: was personally reviewed by me Laboratory Data Attestation: I reviewed the patient's lab results. Result diagrams: 08/15/21 12:47 08/15/21 12:47 Lab Results 08/15/21 08/15/21 08/15/21 Range/Units 12:47 12:47 12:47 WBC 9.40 (4.8-10.8) K/uL RBC 4.65 (4.2-5.4) M/uL Hgb 13.4 (12.0-16.0) g/dL Hct 42.5 (37-47) % MCV 91.4 (80-100) fL MCH 28.8 (25-34) pg MCHC 31.5 L (32-36) g/dL RDW Std Deviation 50.2 H (36.4-46.3) fL RDW Coeff of Dominic 15.0 H (11.5-14.5) % Plt Count 403 H (130-400) K/uL MPV 9.8 (7.4-10.4) fL Immature Gran % (Auto) 0.2 % Neut % (Auto) 70.1 % Lymph % (Auto) 17.7 % Brooks % (Auto) 10.2 % Eos % (Auto) 1.5 % Baso % (Auto) 0.3 % Neut # (Auto) 6.59 H (1.4-6.5) K/uL Lymph # (Auto) 1.66 (1.2-3.4) K/uL Brooks # (Auto) 0.96 H (0.11-0.59) K/uL Eos # (Auto) 0.14 (0-0.5) K/uL Baso # (Auto) 0.03 (0-0.2) K/uL Immature Gran # (Auto) 0.02 (0.00-0.02) K/uL PT 12.3 H (9.0-12.0) Seconds INR 1.2 H (0.9-1.1) APTT 36.7 H (21.0-31.0) Seconds PTT Ratio 1.3 Sodium 136 (136-145) mmol/L Potassium 3.9 (3.5-5.1) mmol/L Chloride 103 (98-107) mmol/L Carbon Dioxide 21 (21-32) mmol/L Anion Gap 12 H (3-11) BUN 22 (6-23) mg/dl Creatinine 1.89 H (0.6-1.2) mg/dl Est Cr Clr Drug Dosing 28.0 ml/min Est GFR ( Amer) 29.1 ml/min Est GFR (Non-Af Amer) 25.2 ml/min BUN/Creatinine Ratio 11.6 (10-20) Glucose 81 (70-99(Fasting)) mg/dl Lactate (0.4-2.0) mmol/L Calcium 9.4 (8.5-10.1) mg/dl Magnesium 1.6 L (1.7-2.4) mg/dl Total Bilirubin 1.2 H (0.2-1.0) mg/dl AST 35 (13-39) U/L ALT 19 (7-52) U/L Alkaline Phosphatase 100 (34-104) U/L Total Creatine Kinase 973 H (26-192) U/L Troponin I High Sens 9.8 (0-14) pg/ml Total Protein 8.2 (6.0-8.3) gm/dl Albumin 3.7 (3.4-5.0) gm/dl Globulin 4.5 H (2.5-4.0) gm/dl Albumin/Globulin Ratio 0.8 L (0.9-2) TSH (0.300-4.500) uIu/ml Urine Color Urine Appearance (Clear) Urine pH (4.5-7.5) Ur Specific [place] (1.000-1.030) Urine Protein (Negative) Urine Glucose (UA) (Negative) Urine Ketones (Negative) Urine Blood (Negative) Urine Nitrite (Negative) Urine Bilirubin (Negative) Urine Urobilinogen (Negative) Ur Leukocyte Esterase (Negative) Urine WBC (Auto) (0-5) /hpf Urine RBC (Auto) (0-4) /hpf U Hyaline Cast (Auto) (0-5) /lpf U Epithel Cells (Auto) (0-5) /lpf Urine Bacteria (Auto) (Negative) Calcium Oxalate Crystal (None Prsent) Urine Mucus (None Prsent) SARS-CoV-2, RNA, NAAT (NEGATIVE) 08/15/21 08/15/21 08/15/21 Range/Units 12:47 12:47 13:05 WBC (4.8-10.8) K/uL RBC (4.2-5.4) M/uL Hgb (12.0-16.0) g/dL Hct (37-47) % MCV (80-100) fL MCH (25-34) pg MCHC (32-36) g/dL RDW Std Deviation (36.4-46.3) fL RDW Coeff of Dominic (11.5-14.5) % Plt Count (130-400) K/uL MPV (7.4-10.4) fL Immature Gran % (Auto) % Neut % (Auto) % Lymph % (Auto) % Brooks % (Auto) % Eos % (Auto) % Baso % (Auto) % Neut # (Auto) (1.4-6.5) K/uL Lymph # (Auto) (1.2-3.4) K/uL Brooks # (Auto) (0.11-0.59) K/uL Eos # (Auto) (0-0.5) K/uL Baso # (Auto) (0-0.2) K/uL Immature Gran # (Auto) (0.00-0.02) K/uL PT (9.0-12.0) Seconds INR (0.9-1.1) APTT (21.0-31.0) Seconds PTT Ratio Sodium (136-145) mmol/L Potassium (3.5-5.1) mmol/L Chloride (98-107) mmol/L Carbon Dioxide (21-32) mmol/L Anion Gap (3-11) BUN (6-23) mg/dl Creatinine (0.6-1.2) mg/dl Est Cr Clr Drug Dosing ml/min Est GFR ( Amer) ml/min Est GFR (Non-Af Amer) ml/min BUN/Creatinine Ratio (10-20) Glucose (70-99(Fasting)) mg/dl Lactate 1.6 (0.4-2.0) mmol/L Calcium (8.5-10.1) mg/dl Magnesium (1.7-2.4) mg/dl Total Bilirubin (0.2-1.0) mg/dl AST (13-39) U/L ALT (7-52) U/L Alkaline Phosphatase (34-104) U/L Total Creatine Kinase (26-192) U/L Troponin I High Sens (0-14) pg/ml Total Protein (6.0-8.3) gm/dl Albumin (3.4-5.0) gm/dl Globulin (2.5-4.0) gm/dl Albumin/Globulin Ratio (0.9-2) TSH 2.307 (0.300-4.500) uIu/ml Urine Color Urine Appearance (Clear) Urine pH (4.5-7.5) Ur Specific [place] (1.000-1.030) Urine Protein (Negative) Urine Glucose (UA) (Negative) Urine Ketones (Negative) Urine Blood (Negative) Urine Nitrite (Negative) Urine Bilirubin (Negative) Urine Urobilinogen (Negative) Ur Leukocyte Esterase (Negative) Urine WBC (Auto) (0-5) /hpf Urine RBC (Auto) (0-4) /hpf U Hyaline Cast (Auto) (0-5) /lpf U Epithel Cells (Auto) (0-5) /lpf Urine Bacteria (Auto) (Negative) Calcium Oxalate Crystal (None Prsent) Urine Mucus (None Prsent) SARS-CoV-2, RNA, NAAT NEGATIVE (NEGATIVE) 08/15/21 Range/Units 17:08 WBC (4.8-10.8) K/uL RBC (4.2-5.4) M/uL Hgb (12.0-16.0) g/dL Hct (37-47) % MCV (80-100) fL MCH (25-34) pg MCHC (32-36) g/dL RDW Std Deviation (36.4-46.3) fL RDW Coeff of Dominic (11.5-14.5) % Plt Count (130-400) K/uL MPV (7.4-10.4) fL Immature Gran % (Auto) % Neut % (Auto) % Lymph % (Auto) % Brooks % (Auto) % Eos % (Auto) % Baso % (Auto) % Neut # (Auto) (1.4-6.5) K/uL Lymph # (Auto) (1.2-3.4) K/uL Brooks # (Auto) (0.11-0.59) K/uL Eos # (Auto) (0-0.5) K/uL Baso # (Auto) (0-0.2) K/uL Immature Gran # (Auto) (0.00-0.02) K/uL PT (9.0-12.0) Seconds INR (0.9-1.1) APTT (21.0-31.0) Seconds PTT Ratio Sodium (136-145) mmol/L Potassium (3.5-5.1) mmol/L Chloride (98-107) mmol/L Carbon Dioxide (21-32) mmol/L Anion Gap (3-11) BUN (6-23) mg/dl Creatinine (0.6-1.2) mg/dl Est Cr Clr Drug Dosing ml/min Est GFR ( Amer) ml/min Est GFR (Non-Af Amer) ml/min BUN/Creatinine Ratio (10-20) Glucose (70-99(Fasting)) mg/dl Lactate (0.4-2.0) mmol/L Calcium (8.5-10.1) mg/dl Magnesium (1.7-2.4) mg/dl Total Bilirubin (0.2-1.0) mg/dl AST (13-39) U/L ALT (7-52) U/L Alkaline Phosphatase (34-104) U/L Total Creatine Kinase (26-192) U/L Troponin I High Sens (0-14) pg/ml Total Protein (6.0-8.3) gm/dl Albumin (3.4-5.0) gm/dl Globulin (2.5-4.0) gm/dl Albumin/Globulin Ratio (0.9-2) TSH (0.300-4.500) uIu/ml Urine Color Jenni Urine Appearance Clear (Clear) Urine pH 5.0 (4.5-7.5) Ur Specific [place] 1.033 H (1.000-1.030) Urine Protein 1+ H (Negative) Urine Glucose (UA) Negative (Negative) Urine Ketones Trace H (Negative) Urine Blood Negative (Negative) Urine Nitrite Positive A (Negative) Urine Bilirubin 2+ H (Negative) Urine Urobilinogen Negative (Negative) Ur Leukocyte Esterase Trace H (Negative) Urine WBC (Auto) 1-5 (0-5) /hpf Urine RBC (Auto) 0-4 (0-4) /hpf U Hyaline Cast (Auto) 1-5 (0-5) /lpf U Epithel Cells (Auto) 10-20 H (0-5) /lpf Urine Bacteria (Auto) 1+ H (Negative) Calcium Oxalate Crystal Present A (None Prsent) Urine Mucus Present A (None Prsent) SARS-CoV-2, RNA, NAAT (NEGATIVE) Administered Medications Discontinued Medications Acetaminophen (Acetaminophen 500 Mg Tab) 1,000 mg PO NOW STA Stop: 08/15/21 17:04 Last Admin: 08/15/21 17:22 Dose: 1,000 mg Documented by: [id number] Sodium Chloride (Nss 1000ml) 1,000 mls @ 999 mls/hr IV .Q1H1M DAVID Stop: 08/15/21 13:45 Last Infusion: 08/15/21 16:29 Dose: 0 mls/hr Documented by: [id number] Admin: 08/15/21 15:11 Dose: 999 mls/hr Documented by: [id number] Sodium Chloride (Nss 1000ml) 1,000 mls @ 999 mls/hr IV .Q1H1M ONE Stop: 08/15/21 18:03 Last Admin: 08/15/21 17:22 Dose: 999 mls/hr Documented by: [id number] Piperacillin Sod/Tazobactam Sod (Zosyn) 4.5 gm in 120 mls @ 240 mls/hr IV NOW ONE Stop: 08/15/21 17:32 Last Infusion: 08/15/21 17:52 Dose: 0 mls/hr Documented by: [id number] Admin: 08/15/21 17:22 Dose: 240 mls/hr Documented by: [id number] Imaging Data Radiologist's Impression: Chest X-Ray 08/15/21 12:32 SINGLE VIEW CHEST CLINICAL HISTORY: Generalized weakness. FINDINGS: An AP, portable, upright chest radiograph is compared to study dated 01/15/2021 and correlated with chest CT dated 07/11/2021. A right internal jugular central venous infusion port is unchanged in position. The heart is mildly enlarged noting atherosclerotic calcification of the thoracic aorta. The pulmonary vasculature is noncongested. A large hiatal hernia is noted. Scarring/atelectasis is seen at the lung bases. The lungs and pleural spaces are otherwise clear. No pneumothorax is seen. The skeletal structures are osteopenic. The bony thorax is grossly intact. Degenerative change is noted in the shoulders and thoracic spine. IMPRESSION: 1. No active disease in the chest. 2. Large hiatal hernia. ACT 112: Negative or not required by law. Electronically signed by: Shawn Nunez M.D. 08/15/2021 2:[address] 08/15/21 12:34 CT SCAN OF THE BRAIN WITHOUT IV CONTRAST CLINICAL HISTORY: Generalized weakness. COMPARISON STUDY: CT of the brain dated 08/06/2021. TECHNIQUE: Unenhanced axial CT scan of the brain is performed from the vertex to the skull base. A dose lowering technique was utilized adhering to the principles of ALARA. 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 There are age-related involutional changes noting mild to moderate subcortical and periventricular microangiopathic change. There is no hemorrhage, mass effect, or evidence of acute territorial ischemia by CT criteria. Higginbotham- white matter differentiation is preserved. No extra-axial fluid collection is seen. Ventricles, sulci, cisterns: Prominent secondary to involutional change. Intracranial vasculature: There is atherosclerotic calcification of the cavernous carotid and vertebral arteries. Calvarium: Unremarkable. Sinuses and mastoids: The visualized paranasal sinuses are clear. The mastoid air cells are well pneumatized. Orbits: The bony orbits are grossly intact. There are bilateral ocular lens implants. IMPRESSION: There is no hemorrhage, mass effect, or evidence of acute territorial ischemia by CT criteria. No change from 08/06/2021. ACT 112: Negative or not required by law. Electronically signed by: Shawn Nunez M.D. 08/15/2021 1:53 PM Discharge Plan Visit Data Chief Complaint: Weakness ED Provider: Adama Fernandez Discharge Problem: Weakness, Acute hypotension, Fever, SHAMEKA (acute kidney injury) Patient Disposition: Being Evaluated by Hospitalist Forms Stand Alone Forms: My [facility] [employer] Prescriptions Prescriptions: No Action diphenhydramine HCl [Benadryl] 25 mg capsule 25 mg PO HS PRN (Reason: Sleep) RF: 0 metoprolol tartrate 25 mg tablet 12.5 mg PO BID RF: 0 amlodipine [Norvasc] 5 mg Tablet 5 mg PO QAM RF: 0 omeprazole 20 mg Tablet,Delayed Release (Dr/Ec) 20 mg PO QAM RF: 0 multivitamin Tablet 1 tab PO QAM RF: 0 cholecalciferol (vitamin D3) [Vitamin D3] 25 mcg (1,000 unit) Tablet 25 mcg PO QAM RF: 0 cetirizine [Zyrtec] 10 mg Tablet 10 mg PO QAM RF: 0 montelukast 10 mg tablet 10 mg PO DAILY RF: 0 esomeprazole magnesium 20 mg capsule,delayed release(DR/EC) 20 mg PO DAILY RF: 0 Eliquis 5 mg tablet 5 mg PO DAILY RF: 0 Referrals Referrals: Mirtha Venegas MD [Primary Care Provider] - Discharge Problem: Fever Qualifiers: Fever type: unspecified Qualified Code(s): R50.9 - Fever, unspecified
[2021-08-15 13:33] LABS: Troponin I High Sensitivity 9.8 pg/ml (0-14)
[2021-08-15 13:42] LABS: Albumin Globulin Ratio 0.8 (0.9-2); Albumin Level 3.7 gm/dl (3.4-5.0); BUN Creatinine Ratio 11.6 (10-20); Bilirubin,Total 1.2 mg/dl (0.2-1.0); Calcium 9.4 mg/dl (8.5-10.1); Est GFR (African American) 29.1 ml/min; Est GFR (Non-African American) 25.2 ml/min; Globulin 4.5 gm/dl (2.5-4.0); Magnesium 1.6 mg/dl (1.7-2.4); Potassium 3.9 mmol/L (3.5-5.1); Total Protein 8.2 gm/dl (6.0-8.3)
--- NOTE | 2021-08-15 13:55 | Electrocardiogram Report ---
Test Reason : Blood Pressure : / mmHG Vent. Rate : 109 BPM Atrial Rate : 109 BPM P-R Int : 146 ms QRS Dur : 090 ms QT Int : 334 ms P-R-T Axes : -19 -33 015 degrees QTc Int : 449 ms Poor data quality, interpretation may be adversely affected Sinus tachycardia with Premature supraventricular complexes Left axis deviation Abnormal ECG When compared with ECG of 14-JAN-2021 09:20, Premature ventricular complexes are no longer Present ST no longer depressed in Inferior leads Confirmed by Adama Osman ([id number]) on 08/15/2021 1:54:57 PM Referred By: REFERRED SELF Confirmed By:Adama Osman
--- NOTE | 2021-08-15 13:55 | CT Scan Report ---
CT SCAN OF THE BRAIN WITHOUT IV CONTRAST CLINICAL HISTORY: Generalized weakness. COMPARISON STUDY: CT of the brain dated 08/06/2021. TECHNIQUE: Unenhanced axial CT scan of the brain is performed from the vertex to the skull base. A do se lowering technique was utilized adhering to the principles of ALARA. 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 There are age-r elated involutional changes noting mild to moderate subcortical and periventricular microangiopathic change. There is no hemorrhage, mass effect, or evidence of acute territorial ischemia by CT criteri a. Higginbotham-white matter differentiation is preserved. No extra-axial fluid collection is seen. Ventricles, sulci, cisterns: Prominent secondary to involutional change. Intracranial vasculature: There is atherosclerotic calcification of the cavernous carotid and vertebr al arteries. Calvarium: Unremarkable. Sinuses and mastoids: The visualized paranasal sinuses are clear. The mastoid air cells are well pneu matized. Orbits: The bony orbits are grossly intact. There are bilateral ocular lens implants. IMPRESSION: There is no hemorrhage, mass effect, or evidence of acute territorial ischemia by CT sammi bush. No change from 08/06/2021. ACT 112: Negative or not required by law. Electronically signed by: Shawn Nunez M.D. 08/15/2021 1:53 PM
--- NOTE | 2021-08-15 14:51 | XRay Report ---
SINGLE VIEW CHEST CLINICAL HISTORY: Generalized weakness. FINDINGS: An AP, portable, upright chest radiograph is compared to study dated 01/15/2021 and correlat ed with chest CT dated 07/11/2021. A right internal jugular central venous infusion port is unchanged in position. The heart is mildly enlarged noting atherosclerotic calcification of the thoracic aorta. The pulmonary vasculature is noncongested. A large hiatal hernia is noted. Scarring/atelectasis is s een at the lung bases. The lungs and pleural spaces are otherwise clear. No pneumothorax is seen. The skeletal structures are osteopenic. The bony thorax is grossly intact. Degenerative change is noted in the shoulders and thoracic spine. IMPRESSION: 1. No active disease in the chest. 2. Large hiatal hernia. ACT 112: Negative or not required by law. Electronically signed by: Shawn Nunez M.D. 08/15/2021 2:50 PM
[2021-08-15] MEDS ORDERED: ACETAMINOPHEN 500 MG TAB PO STA (17:03)
[2021-08-15] MEDS ORDERED: SODIUM CHLORIDE 0.9% 1000ML 1,000 ML IV ONE (17:03)
[2021-08-15] MEDS ORDERED: PIPERACILLIN/TAZOBACTAM 4.5 GM/120 ML BAG IV ONE (17:03)
[2021-08-15] MEDS ORDERED: PIPERACILL/TAZOBAC CONSULT ACTIVE PRN ×2 (17:03→21:04)
[2021-08-15 17:36] LABS: Appearance Urine Clear (Clear); Blood Urine Negative (Negative); Glucose Urine UA Negative (Negative); Ketones Urine Trace (Negative); Leukocyte Esterase Urine Trace (Negative); Nitrite Urine Positive (Negative); Protein Urine 1+ (Negative); Specific Gravity Urine 1.033 (1.000-1.030); Urobilinogen Urine Negative (Negative)
[2021-08-15 17:39] LABS: Bilirubin Urine 2+ (Negative); Color Urine Amber
[2021-08-15 17:51] LABS: Mucus Urine Present (None Prsent)
[2021-08-15 17:52] LABS: Calcium Oxalate Crystals Urine Present (None Prsent); RBC Urine Automated 0-4 /hpf (0-4)
[2021-08-15 17:53] LABS: Bacteria Urine Automated 1+ (Negative)
--- NOTE | 2021-08-15 19:09 | History & Physical Report ---
Date of Service August 15, 2021 Assessment & Plan (1) SIRS (systemic inflammatory response syndrome): Plan: - Tachycardic, febrile in ED. She was initially confused on my exam, this is not her baseline at home, but has her been per baseline since arrival to the ED. No leukocytosis. Lactate 1.6 - No obvious source of infection on exam, labs, or imaging. - She was started on Zosyn in the ED, will add on vancomycin for empiric coverage while we look for potential source. - Blood and urine cultures pending. - Tylenol for fever as needed. - LRs at 100 cc/hour. - COVID/flu/RSV negative. (2) Encephalopathy: Plan: - Patient was initially having trouble answering my questions appropriately, was derailing conversation with irrelevant questions initially, and hard to interview. Could not really contribute to history. Nurse entered the room and saidthat she had been since arrival, is not an acute change. I was also made aware the patient is hard of hearing. Upon visiting her second time, she is more alert, alert and oriented x4, and able to answer my questions more appropriately - Suspect this transient alteration in her baseline mentation status is in the setting of infection, hypotension, does not seem to be an ongoing issue. Continue to monitor. (3) Weakness: Plan: - Generalized, no focal weakness/numbness/tingling. - Suspect is due to decreased p.o. intake, infection. - PT/OT to eval and treat. - Continue to monitor for improvement in response to antibiotics. (4) Acute hypotension: Plan: - In setting of infection, decreased p.o. intake over the past few days. MAP >65. Is responsive to IVF. Not requiring vasopressors at this time. (5) SHAMEKA (acute kidney injury): Plan: - Cr 1.89, increased from 0.96 on labs on 07/25. Suspect this is in the setting of dehydration, infection (currently unknown source). Some hyaline casts seen on UA. - LRs at 100 cc/hour for this as well as rhabdo, hypotension responsive to IVF. - Follow on a.m. labs. - Avoid nephrotoxic agents, renally dose medications as able. (6) Hypomagnesemia: Plan: - 1.6 in ED, will replete with 2 bags and recheck with a.m. labs. (7) Rhabdomyolysis: Plan: - CK 973. - Patient patient started on clears for several hours unable to get up today. No falls. - LR at 100 cc/hour, recheck CK in AM. (8) Thrush, oral: Plan: - Will order nystatin mouthwash 4 times daily. (9) Chronic laryngitis: Plan: - Patient complains of hoarseness, this was noted on PCP note from June, this has been an issue apparently for years and she had seen an ENT who told her she had a collapsed vocal cord, has seen speech for this. May be partially due to thrush. (10) Hypertension: Plan: - Home meds include metoprolol and amlodipine, will hold these for now given her hypotension. (11) Melanoma: Plan: - Right sided IJ port in place without surrounding erythema, edema, ecchymosis, or tenderness with palpation. - Metastatic. Receives immunotherapy infusions. History of Present Illness Chief Complaint: Generalized weakness Primary Care Provider: Mirtha Venegas MD Ms. Newman is a 76-year-old female with past medical history of metastatic melanoma, hypertension, GERD, seasonal allergies who presents today from home with weakness. Per sister, patient lives alone but has many siblings and other family members who check on her frequently. She is at baseline independent and AAO x4, however over the past few days she has seemed more weak and last evenin g, patient went to the bathroom and when she tried to get up she could not, unfortunately sat there for several hours due to the severity of her general weakness. She also complains of a sore throat and feeling very dry, she states she has not been eating or drinking much because she has not had an appetite. Over the past few days, she has developed some vaginal/groin itching and states she thinks she may have a yeast infection. She otherwise denies fever/chills at home, body aches, night sweats, chest pain, palpitations, shortness of breath, cough, congestion, vomiting, abdominal pain, nausea, vomiting, diarrhea, constipation, dysuria, hematuria, increased urgency or frequency. In ED, she is tachycardic, initially normotensive with drop in BP 93/51, febrile at 100.7, but SPO2 >95% on RA. Labs significant for creatinine 1.89, increased from baseline several weeks ago at 0.96, magnesium 1.6, T bili 1.2, CK 973. UA with 10-20 epithelial cells, but with 1+ bacteria, trace leuk esterase, positive for nitrates, bilirubin. Calcium oxalate present. COVID-negative. CXR showed no acute active disease, heart mildly enlarged with no pulmonary congestion, without pleural effusion or pneumothorax. Head CT did not show hemorrhage, mass-effect, or evidence of acute territorial ischemia. Blood and urine cultures sent. Patient received 2 NSS x 2L, Tylenol, and Zosyn in ED, hospitalist service was then consulted for further evaluation and admission. Allergies Allergy/AdvReac Type Severity Reaction Status Date / Time tramadol Allergy Mild NASUEA/CONF Verified 01/15/21 08:49 USION cephalexin [From Keflex] AdvReac Mild upset Verified 01/15/21 08:49 stomach Home Medications Medication Instructions Recorded Confirmed Type amlodipine 5 mg tablet (Norvasc) 5 mg PO QAM 12/05/18 08/15/21 History omeprazole 20 mg tablet,delayed 20 mg PO QAM 12/05/18 08/15/21 History release cholecalciferol (vitamin D3) 25 25 mcg PO QAM 12/11/19 08/15/21 History mcg (1,000 unit) tablet (Vitamin D3) metoprolol tartrate 25 mg tablet 12.5 mg PO BID 03/26/20 08/15/21 History diphenhydramine HCl 25 mg capsule 25 mg PO HS PRN cap 03/28/20 08/15/21 History (Benadryl) multivitamin 1 tab PO QAM 04/25/20 08/15/21 History cetirizine 10 mg tablet (Zyrtec) 10 mg PO QAM 01/14/21 08/15/21 History apixaban 5 mg tablet (Eliquis) 5 mg PO DAILY 08/15/21 08/15/21 History esomeprazole magnesium 20 mg 20 mg PO DAILY 08/15/21 08/15/21 History capsule,delayed release montelukast 10 mg tablet 10 mg PO DAILY 08/15/21 08/15/21 History Past Med/Surg History Medical History Cerebral infarct "Presumed old right frontal lobe cerebral infarct" - per Dec 2019 PET scan -- pt unaware/denies 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 No chemo or XRT GERD (gastroesophageal reflux disease) Hearing deficit Hiatal hernia Hx of pulmonary embolus 2019 s/p foot surgery, was on Eliquis for a few months. 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 Tinsley Surgical History H/O excision of mass History of ankle surgery RECONSTRUCTION OF LEFT ANKLE History of biopsy History of cataract surgery History of colonoscopy History of esophagogastroduodenoscopy (EGD) History of laryngoscopy Hx of bladder repair surgery Hx of foot surgery reconstructive right foot surgery (2018) Hx of hysterectomy Hx of total knee replacement RIGHT AND LEFT Hx of tubal ligation PONV (postoperative nausea and vomiting) Family History Mother Hearing loss Cancer Sister Hearing loss Cancer Other Breast cancer Family history non-contributory No family history of adverse response to anesthesia No family history of bleeding disorder Social History Smoking Status: Never smoker Second Hand Exposure: No; Do You Dip or Chew Tobacco: No; Hx Alcohol Use: No Hx Substance Use: No Preferred Language: Yi Communication Ability: confused 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 Beliefs That Will Affect Care: None marital status: Current Living Situation: Alone How many Children do You have: 2 Feels Safe at Home: Yes during the past year weight has: increased > 10 lbs Assistive Devices: Cane, Denture - Upper, Denture - Lower, Glasses and Walker Review of Systems Review of Systems: Constitutional:chills, weakness, anorexia; no fatigue, myalgias, night sweats Eyes: No diplopia, no worsening or blurred vision ENT: hoarseness, dryness of throat; normal hearing, no trouble swallowing Respiratory: No cough, sputum, dyspnea at rest or on exertion Cardiovascular: No chest pain, tightness or palpitations Abdomen: No pain, nausea, vomiting, diarrhea or constipation : Reports vaginal/groin pruritus for several days; denies dysuria, hematuria, increased urgency/frequency, urinary retention Musculoskeletal: Left heel pain; no joint pain, calf pain, swelling Neurologic: No weakness, numbness/tingling, or balance problems Psychiatric: No anxiety or depression Skin: No rash or itch Physical Exam Physical Exam: General: awake, alert, no apparent distress, initially patient was somewhat confused and had difficulty answering my questions, but on second exam she is more alert and able to answer questions about symptoms she has been having at home Head: Normocephalic, atraumatic ENT: PERRL, EOMI, no pharyngeal exudate, mucous membranes moist Chest: Clear to auscultation, on room air, no adventitious breath sounds Cardiac: Regular rate and rhythm, no murmur, no JVD, normal peripheral pulses, good capillary refill Abdominal: NABS x 4 quadrants, soft, nontender to palpation, no rebound, guarding or tenderness Extremities: Normal inspection, no peripheral edema or erythema, calfs nontender to palpation Psych: Normal mood and affect Neuro: AAO x 3, strength intact bilaterally and rated 5/5, no motor deficits, speech is clear, no peripheral sensory deficits Skin: no rash or erythema Results & Data Results & Data ([facility]) Vital Signs (Past 12 Hours) Vital Signs Temp Pulse Pulse Resp BP BP Pulse Ox 08/15/21 18:02 105 H 20 93/51 L 95 08/15/21 17:59 37.3 C 08/15/21 17:00 38.2 C H 106 H 24 143/83 H 95 08/15/21 13:00 108 H 117/60 93 08/15/21 12:30 112 H 22 95 08/15/21 12:16 109 H 08/15/21 12:15 37.6 C H 111 H 26 H 125/79 96 Laboratory Results Abnormal lab results 08/15/21 08/15/21 08/15/21 Range/Units 12:47 12:47 12:47 MCHC 31.5 L (32-36) g/dL RDW Std Deviation 50.2 H (36.4-46.3) fL RDW Coeff of Dominic 15.0 H (11.5-14.5) % Plt Count 403 H (130-400) K/uL Neut # (Auto) 6.59 H (1.4-6.5) K/uL [place]ila # (Auto) 0.96 H (0.11-0.59) K/uL PT 12.3 H (9.0-12.0) Seconds INR 1.2 H (0.9-1.1) APTT 36.7 H (21.0-31.0) Seconds Anion Gap 12 H (3-11) Creatinine 1.89 H (0.6-1.2) mg/dl Magnesium 1.6 L (1.7-2.4) mg/dl Total Bilirubin 1.2 H (0.2-1.0) mg/dl Total Creatine Kinase 973 H (26-192) U/L Globulin 4.5 H (2.5-4.0) gm/dl Albumin/Globulin Ratio 0.8 L (0.9-2) Ur Specific [place] (1.000-1.030) Urine Protein (Negative) Urine Ketones (Negative) Urine Nitrite (Negative) Urine Bilirubin (Negative) Ur Leukocyte Esterase (Negative) U Epithel Cells (Auto) (0-5) /lpf Urine Bacteria (Auto) (Negative) Calcium Oxalate Crystal (None Prsent) Urine Mucus (None Prsent) 08/15/21 Range/Units 17:08 MCHC (32-36) g/dL RDW Std Deviation (36.4-46.3) fL RDW Coeff of Dominic (11.5-14.5) % Plt Count (130-400) K/uL Neut # (Auto) (1.4-6.5) K/uL [place] # (Auto) (0.11-0.59) K/uL PT (9.0-12.0) Seconds INR (0.9-1.1) APTT (21.0-31.0) Seconds Anion Gap (3-11) Creatinine (0.6-1.2) mg/dl Magnesium (1.7-2.4) mg/dl Total Bilirubin (0.2-1.0) mg/dl Total Creatine Kinase (26-192) U/L Globulin (2.5-4.0) gm/dl Albumin/Globulin Ratio (0.9-2) Ur Specific [place] 1.033 H (1.000-1.030) Urine Protein 1+ H (Negative) Urine Ketones Trace H (Negative) Urine Nitrite Positive A (Negative) Urine Bilirubin 2+ H (Negative) Ur Leukocyte Esterase Trace H (Negative) U Epithel Cells (Auto) 10-20 H (0-5) /lpf Urine Bacteria (Auto) 1+ H (Negative) Calcium Oxalate Crystal Present A (None Prsent) Urine Mucus Present A (None Prsent) Diagnostic Findings Chest X-Ray 08/15/21 12:32 SINGLE VIEW CHEST CLINICAL HISTORY: Generalized weakness. FINDINGS: An AP, portable, upright chest radiograph is compared to study dated 01/15/2021 and correlated with chest CT dated 07/11/2021. A right internal jugular central venous infusion port is unchanged in position. The heart is mildly e nlarged noting atherosclerotic calcification of the thoracic aorta. The pulmonary vasculature is noncongested. A large hiatal hernia is noted. Scarring/atelectasis is seen at the lung bases. The lungs and pleural spaces are otherwise clear. No pneumothorax is seen. The skeletal structures are osteopenic. The bony thorax is grossly intact. Degenerative change is noted in the shoulders and thoracic spine. IMPRESSION: 1. No active disease in the chest. 2. Large hiatal hernia. ACT 112: Negative or not required by law. Electronically signed by: Shawn Nunez M.D. 08/15/2021 2:[address] 08/15/21 12:34 CT SCAN OF THE BRAIN WITHOUT IV CONTRAST CLINICAL HISTORY: Generalized weakness. COMPARISON STUDY: CT of the brain dated 08/06/2021. TECHNIQUE: Unenhanced axial CT scan of the brain is performed from the vertex to the skull base. A dose lowering technique was utilized adhering to the principles of ALARA. 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 There are age-related involutional changes noting mild to moderate subcortical and periventricular microangiopathic change. There is no hemorrhage, mass effect, or evidence of acute territorial ischemia by CT criteria. Higginbotham- white matter differentiation is preserved. No extra-axial fluid collection is seen. Ventricles, sulci, cisterns: Prominent secondary to involutional change. Intracranial vasculature: There is atherosclerotic calcification of the cavernous carotid and vertebral arteries. Calvarium: Unremarkable. Sinuses and mastoids: The visualized paranasal sinuses are clear. The mastoid air cells are well pneumatized. Orbits: The bony orbits are grossly intact. There are bilateral ocular lens implants. IMPRESSION: There is no hemorrhage, mass effect, or evidence of acute territorial ischemia by CT criteria. No change from 08/06/2021. ACT 112: Negative or not required by law. Electronically signed by: Shawn Nunez M.D. 08/15/2021 1:53 PM ECG Additional Comments: Sinus tachycardia with Premature supraventricular complexes Left axis deviation Abnormal ECG When compared with ECG of 14-JAN-2021 09:20, Premature ventricular complexes are no longer Present ST no longer depressed in Inferior leads Confirmed by Adama Osman ([id number]) on 08/15/2021 1:54:57 PM Upon my evaluation, there is baseline artifact, do not believe she is in A. fib, I see no ST segment or T wave changes. Tachycardic. Code Status & VTE Plan Code Status Full code. Supervising Physician Co-Signing Physician Notes PA Supervision Note: I personally saw and examined the patient. I verified all yousif points and agree with BRADLEY Hawkins with the following exceptions and/or additions: Patient 76 female with history of metastatic melanoma, HTN, GERD, VTE on Eliquis, who presents to the ER with generalized weakness and was found to have a fever and hypotension. She denies chest pains or shortness of breath. She does have a sore throat and mild headache. COVID/RSV/influenza was negative. Empiric antibiotics were given after blood cultures and urine culture were collected. She does have a port in place but says that it is hardly been used as it does not function. History and ROS reviewed as above O- Vitals reviewed Gen: AAOx3, NAD, obese, ill-appearing HEENT: Anicteric sclerae, EOMI CV: RRR no mgr nl S1S2 Pulm: CTAB no wcr Abd: +BS soft NT ND no masses or hernias Ext: No edema, 2+ DP pulses Skin: No rashes, warm/dry Neuro: Full strength throughout Labs and rads reviewed A/W-14-bodc-old female with history as above, here with SIRS, rhabdomyolysis, generalized weakness -Continue empiric broad-spectrum antibiotics given port in place -Follow blood and urine cultures-UA does not appear infected -Give IV fluids and trend CK -Replace magnesium -Will need PT/OT PG Care Time/CCT Total # of Minutes Spent Total Time Spent with Patient: Total time spent is greater than 50% in coordination of care (as documented) at patient's floor/unit and/or counseling patient: Coding Level of Care Code 97799 Initial Inpt Care Lvl 3 Diagnoses Weakness R53.1 Acute hypotension I95.9 SIRS (systemic inflammatory response syndrome) R65.10 SHAMEKA (acute kidney injury) N17.9 Chronic laryngitis J37.0 Melanoma C43.9 Hypertension I10 Hypomagnesemia E83.42 Thrush, oral B37.0 Rhabdomyolysis M62.82 Encephalopathy G93.40
[2021-08-15] MEDS ORDERED: VANCOMYCIN CONSULT ACTIVE PRN ×2 (19:49→21:04)
[2021-08-15] MEDS ORDERED: VANCOMYCIN HCL 1,000 MG in SODIUM CHLORIDE 0.9% 250 ML IV ONE (19:52)
[2021-08-15] MEDS: MAGNESIUM SULFATE / D5W 1 GM/100 ML BAG IV SCH ×2 (20:07→22:20)
[2021-08-15] MEDS ORDERED: ONDANSETRON INJ 2 MG/ML 2 ML VIAL IV PRN (21:04)
[2021-08-15] MEDS ORDERED: PIPERACILLIN/TAZOBACTAM 3.375 GM in DEXTROSE 5% 100 ML IV SCH (21:04)
[2021-08-15] MEDS ORDERED: POLYETHYLENE (MIRALAX) 17 GM PACK PO PRN (21:04)
[2021-08-15] MEDS ORDERED: VANCOMYCIN HCL 1,500 MG in SODIUM CHLORIDE 0.9% 500 ML IV SCH (21:04)
[2021-08-15 21:05] LABS: Influenza A virus by PCR Negative (Neg); Influenza B virus by PCR Negative (Neg); RSV by PCR Negative (Neg); SARS CoV2 RNA(COVID-19) InHosp NEGATIVE (Negative)
[2021-08-15] MEDS: LACTATED RINGER'S 1,000 ML IV SCH (21:33)
[2021-08-15] MEDS ORDERED: VANCOMYCIN HCL 2,000 MG in SODIUM CHLORIDE 0.9% 500 ML IV SCH (22:00)
[2021-08-15] MEDS: NYSTATIN SUSP 500,000 U/5 ML UDC PO SCH (23:21)
[2021-08-16] MEDS: PIPERACILLIN/TAZOBACTAM 4.5 GM in DEXTROSE 5% 100 ML IV SCH ×4 (01:11→23:51)
--- NOTE | 2021-08-16 01:48 | Pharmacy Report ---
Pharmacy Abx/Gly Intl Consult - Date of Service August 16, 2021 - Scope Pharmacy has been consulted by Alvina Hawkins PA-C to manage Vancomycin for this patient as per the Pharmacy & Therapeutics Committee approved dosing protocols. - Subjective The patient is a 76 year old F admitted on 08/15/21 20:08. - Objective Height: 5 ft 4 in Weight: 98.8 kg Vital Signs (Past 12hrs): Vital Signs Temp Pulse Resp BP Pulse Ox 08/15/21 21:36 36.6 C 88 20 98/63 L 94 08/15/21 20:00 37 C 92 H 16 91/53 L 94 08/15/21 18:02 105 H 20 93/51 L 95 08/15/21 17:59 37.3 C 08/15/21 17:00 38.2 C H 106 H 24 143/83 H 95 Accuchecks BSG (last 24hrs): 08/15/21 12:47 Glucose 81 Lab Results (24hrs): Laboratory Results - last 24 hr 08/15/21 08/15/21 08/15/21 12:47 12:47 12:47 WBC 9.40 RBC 4.65 Hgb 13.4 Hct 42.5 MCV 91.4 MCH 28.8 MCHC 31.5 L RDW Std Deviation 50.2 H RDW Coeff of Dominic 15.0 H Plt Count 403 H MPV 9.8 Immature Gran % (Auto) 0.2 Neut % (Auto) 70.1 Lymph % (Auto) 17.7 [place] % (Auto) 10.2 Eos % (Auto) 1.5 Baso % (Auto) 0.3 Neut # (Auto) 6.59 H Lymph # (Auto) 1.66 [place] # (Auto) 0.96 H Eos # (Auto) 0.14 Baso # (Auto) 0.03 Immature Gran # (Auto) 0.02 PT 12.3 H INR 1.2 H APTT 36.7 H PTT Ratio 1.3 Sodium 136 Potassium 3.9 Chloride 103 Carbon Dioxide 21 Anion Gap 12 H BUN 22 Creatinine 1.89 H Est Cr Clr Drug Dosing 28.0 Est GFR ( Amer) 29.1 Est GFR (Non-Af Amer) 25.2 BUN/Creatinine Ratio 11.6 Glucose 81 Lactate Calcium 9.4 Magnesium 1.6 L Total Bilirubin 1.2 H AST 35 ALT 19 Alkaline Phosphatase 100 Total Creatine Kinase 973 H Troponin I High Sens 9.8 Total Protein 8.2 Albumin 3.7 Globulin 4.5 H Albumin/Globulin Ratio 0.8 L TSH Urine Color Urine Appearance Urine pH Ur Specific [place] Urine Protein Urine Glucose (UA) Urine Ketones Urine Blood Urine Nitrite Urine Bilirubin Urine Urobilinogen Ur Leukocyte Esterase Urine WBC (Auto) Urine RBC (Auto) U Hyaline Cast (Auto) U Epithel Cells (Auto) Urine Bacteria (Auto) Calcium Oxalate Crystal Urine Mucus Nasal Screen MRSA (PCR) SARS-CoV-2 (PCR) Influenza Type A (PCR) Influenza Type B (PCR) RSV (RT-PCR) SARS-CoV-2, RNA, NAAT 08/15/21 08/15/21 08/15/21 12:47 12:47 13:05 WBC RBC Hgb Hct MCV MCH MCHC RDW Std Deviation RDW Coeff of Dominic Plt Count MPV Immature Gran % (Auto) Neut % (Auto) Lymph % (Auto) [place] % (Auto) Eos % (Auto) Baso % (Auto) Neut # (Auto) Lymph # (Auto) [place] # (Auto) Eos # (Auto) Baso # (Auto) Immature Gran # (Auto) PT INR APTT PTT Ratio Sodium Potassium Chloride Carbon Dioxide Anion Gap BUN Creatinine Est Cr Clr Drug Dosing Est GFR ( Amer) Est GFR (Non-Af Amer) BUN/Creatinine Ratio Glucose Lactate 1.6 Calcium Magnesium Total Bilirubin AST ALT Alkaline Phosphatase Total Creatine Kinase Troponin I High Sens Total Protein Albumin Globulin Albumin/Globulin Ratio TSH 2.307 Urine Color Urine Appearance Urine pH Ur Specific [place] Urine Protein Urine Glucose (UA) Urine Ketones Urine Blood Urine Nitrite Urine Bilirubin Urine Urobilinogen Ur Leukocyte Esterase Urine WBC (Auto) Urine RBC (Auto) U Hyaline Cast (Auto) U Epithel Cells (Auto) Urine Bacteria (Auto) Calcium Oxalate Crystal Urine Mucus Nasal Screen MRSA (PCR) SARS-CoV-2 (PCR) Influenza Type A (PCR) Influenza Type B (PCR) RSV (RT-PCR) SARS-CoV-2, RNA, NAAT NEGATIVE 08/15/21 08/15/21 08/15/21 17:08 20:16 20:16 WBC RBC Hgb Hct MCV MCH MCHC RDW Std Deviation RDW Coeff of Dominic Plt Count MPV Immature Gran % (Auto) Neut % (Auto) Lymph % (Auto) [place] % (Auto) Eos % (Auto) Baso % (Auto) Neut # (Auto) Lymph # (Auto) [place] # (Auto) Eos # (Auto) Baso # (Auto) Immature Gran # (Auto) PT INR APTT PTT Ratio Sodium Potassium Chloride Carbon Dioxide Anion Gap BUN Creatinine Est Cr Clr Drug Dosing Est GFR ( Amer) Est GFR (Non-Af Amer) BUN/Creatinine Ratio Glucose Lactate Calcium Magnesium Total Bilirubin AST ALT Alkaline Phosphatase Total Creatine Kinase Troponin I High Sens Total Protein Albumin Globulin Albumin/Globulin Ratio TSH Urine Color Jenni Urine Appearance Clear Urine pH 5.0 Ur Specific [place] 1.033 H Urine Protein 1+ H Urine Glucose (UA) Negative Urine Ketones Trace H Urine Blood Negative Urine Nitrite Positive A Urine Bilirubin 2+ H Urine Urobilinogen Negative Ur Leukocyte Esterase Trace H Urine WBC (Auto) 1-5 Urine RBC (Auto) 0-4 U Hyaline Cast (Auto) 1-5 U Epithel Cells (Auto) 10-20 H Urine Bacteria (Auto) 1+ H Calcium Oxalate Crystal Present A Urine Mucus Present A Nasal Screen MRSA (PCR) Negative SARS-CoV-2 (PCR) NEGATIVE Influenza Type A (PCR) Negative Influenza Type B (PCR) Negative RSV (RT-PCR) Negative SARS-CoV-2, RNA, NAAT Micro Results: 08/15/21 17:08 Urine Culture - Pending Urine,Straight Cath 08/15/21 15:22 Aerobic Blood Culture - Pending Blood Anaerobic Blood Culture - Pending 08/15/21 12:47 Aerobic Blood Culture - Pending Blood Anaerobic Blood Culture - Pending - Plan ANTIMICROBIAL THERAPY Vancomycin IV * Loading dose: 2000 mg (~21 mg/kg) * SCr on admission is elevated from baseline (1.89 vs ~1). * Will obtain a random level with am labs and redose accordingly. Pharmacy will follow patient and adjust orders on a daily basis. Thank you for allowing us to participate in this patients care.
--- NOTE | 2021-08-16 07:34 | Hospitalist Progress Note ---
Date of Service August 16, 2021 Assessment & Plan (1) Weakness: Plan: 76 yo female with pmhx metastatic melanoma, h/o VTE on eliquis, hypertension, GERD who presents today from home with weakness. #SIRS (systemic inflammatory response syndrome) - Tachycardic, febrile in ED. Confused on admission, this is not her baseline at home.No leukocytosis. Lactate 1.6 - No obvious source of infection on exam, labs, or imaging. Will need to r/o in fection however still suspect FTT as source of SIRS and weakness. - started on Zosyn in the ED; started vancomycin for empiric coverage while we look for potential source. - UA: possible dirty, trace LE, pos nitrites, no blood - Blood and urine cultures pending. - Tylenol for fever as needed. - LRs at 100 cc/hour. - COVID/flu/RSV negative. #Encephalopathy, resolved - On admission having trouble answering questions appropriately, was derailing conversation with irrelevant questions initially, and hard to interview.Mental status progressively improved throughout admission. - Suspect this transient alteration in her baseline mentation status is in the setting of infection, hypotension, does not seem to be an ongoing issue. Continue to monitor. #Weakness - Generalized, no focal weakness/numbness/tingling. - Suspect is due to decreased p.o. intake, FTT, possible infection. - PT/OT to eval and treat. - Continue to monitor for improvement in response to antibiotics and fluids. #Acute hypotension, resolved - In setting of infection, decreased p.o. intake over the past few days. MAP >65. Is responsive to IVF. Not requiring vasopressors at this time. #SHAMEKA (acute kidney injury) - Cr 1.89, increased from 0.96 on labs on 07/25. Suspect this is in the setting of dehydration, infection (currently unknown source). - LRs at 100 cc/hour for this as well as rhabdo, hypotension responsive to IVF. - Improved Cr 1.54 - Avoid nephrotoxic agents, renally dose medications as able - bmp am #Hypomagnesemia, resolved - 1.6 in ED, will replete with 2 bags - Improved mag 1.9, stable #Elevated CK - CK 973 on admission - worsening CK 1200s - Likely due to prolonged sitting on toilet due to FTT prior to admission. No falls. - LR at 100 cc/hour - repeat CK am #Thrush, oral - cont. nystatin mouthwash 4 times daily. #Chronic laryngitis - Patient complains of hoarseness, this was noted on PCP note from June, this has been an issue apparently for years and she had seen an ENT who told her she had a collapsed vocal cord, has seen speech for this. May be partially due to thrush. #Hypertension - BP stable, will restart home amlodipine and metoprolol #Metastatic Melanoma - Right sided IJ port in place without surrounding erythema, edema, ecchymosis, or tenderness with palpation. - Receives immunotherapy infusions. #GERD -continue PPI. #History of VTE -cont. Eliquis 5 mg BID. DVT ppx: eliquis 5mg bid FEN/GI: heart healthy Code Status: full Dispo: pcu Admission and Anticipated Discharge Date Admission Date: August 15, 2021 Supervising Physician Co-Signing Physician Notes I personally examined the patient and verified all yousif points of history and exam, discussed case, and agree with decision making with Dr Anderson feeling better than when she came in. notes poor PO intake for a few weeks at home no clear inciting factor. no cough/sob. no diarrhea. no dysuria. no rashes. vitals noted nad heent nc at lips dry breathing unlabored no acccessory muscles good effort skin no rashes no pallor or icterus failure to thrive - w SIRS picture on empiric abx - follow, follow labs/vitals/serial exams and cultures. continue empiric abx for now, although if no source/no clear picture evolves, may all just be failure to thrive from poor self care and poor PO intake, though. otherwise as above Subjective Seen at bedside this morning. Feeling better than when she first came in. No longer confused. She is still getting chills/shakes. For the past two weeks has been feeling tightness and cyanosis of fingers bilaterally. Says the weakness initially came on a few weeks ago without any trigger. Review of Systems Review of Systems: All systems reviewed & are unremarkable except as noted in Subjective Physical Exam Physical Exam: General: awake, alert, in mild distress Head: Normocephalic, atraumatic ENT: EOMI, mildly dry mucous membranes, hard of hearing (better on left) Chest: Clear to auscultation, on room air, no adventitious breath sounds Cardiac: Regular rate and rhythm, no murmur, no JVD, normal peripheral pulses, good capillary refill Abdominal: soft, nontender to palpation, no rebound or guarding Extremities: mild acrocyanosis fingers bilaterally, no peripheral edema or erythema, calfs nontender to palpation Psych: Normal mood and affect Neuro: AOx3, strength intact bilaterally and rated 5/5, no motor deficits, speech is clear, no peripheral sensory deficits Skin: no rash or erythema Results & Data Results & Data ([facility]) Vital Signs (Past 12 Hours) Vital Signs Temp Pulse Pulse Resp BP Pulse Ox 08/16/21 04:16 36.8 C 88 20 117/77 92 08/15/21 22:34 85 08/15/21 21:36 36.6 C 88 20 98/63 L 94 08/15/21 21:34 88 08/15/21 20:00 37 C 92 H 16 91/53 L 94 Laboratory Results 08/16/21 08/16/21 08/16/21 Range/Units 07:49 07:49 07:49 WBC 7.66 (4.8-10.8) K/uL RBC 4.39 (4.2-5.4) M/uL Hgb 12.7 (12.0-16.0) g/dL Hct 40.4 (37-47) % MCV 92.0 (80-100) fL MCH 28.9 (25-34) pg MCHC 31.4 L (32-36) g/dL RDW Std Deviation 52.1 H (36.4-46.3) fL RDW Coeff of Dominic 15.3 H (11.5-14.5) % Plt Count 364 (130-400) K/uL MPV 9.8 (7.4-10.4) fL Immature Gran % (Auto) 0.3 % Neut % (Auto) 66.6 % Lymph % (Auto) 17.5 % [place] % (Auto) 10.8 % Eos % (Auto) 4.3 % Baso % (Auto) 0.5 % Neut # (Auto) 5.10 (1.4-6.5) K/uL Lymph # (Auto) 1.34 (1.2-3.4) K/uL [place] # (Auto) 0.83 H (0.11-0.59) K/uL Eos # (Auto) 0.33 (0-0.5) K/uL Baso # (Auto) 0.04 (0-0.2) K/uL Immature Gran # (Auto) 0.02 (0.00-0.02) K/uL PT (9.0-12.0) Seconds INR (0.9-1.1) APTT (21.0-31.0) Seconds PTT Ratio Sodium 136 (136-145) mmol/L Potassium 4.3 (3.5-5.1) mmol/L Chloride 106 (98-107) mmol/L Carbon Dioxide 20 L (21-32) mmol/L Anion Gap 10 (3-11) BUN 20 (6-23) mg/dl Creatinine 1.54 H D (0.6-1.2) mg/dl Est Cr Clr Drug Dosing 34.9 ml/min Est GFR ( Amer) 37.3 ml/min Est GFR (Non-Af Amer) 32.2 ml/min BUN/Creatinine Ratio 13.0 (10-20) Glucose 66 L (70-99(Fasting)) mg/dl Lactate (0.4-2.0) mmol/L Calcium 8.7 (8.5-10.1) mg/dl Magnesium 1.9 (1.7-2.4) mg/dl Total Bilirubin (0.2-1.0) mg/dl AST (13-39) U/L ALT (7-52) U/L Alkaline Phosphatase (34-104) U/L Total Creatine Kinase 1204 H (26-192) U/L Troponin I High Sens (0-14) pg/ml Total Protein (6.0-8.3) gm/dl Albumin (3.4-5.0) gm/dl Globulin (2.5-4.0) gm/dl Albumin/Globulin Ratio (0.9-2) TSH (0.300-4.500) uIu/ml Urine Color Urine Appearance (Clear) Urine pH (4.5-7.5) Ur Specific [place] (1.000-1.030) Urine Protein (Negative) Urine Glucose (UA) (Negative) Urine Ketones (Negative) Urine Blood (Negative) Urine Nitrite (Negative) Urine Bilirubin (Negative) Urine Urobilinogen (Negative) Ur Leukocyte Esterase (Negative) Urine WBC (Auto) (0-5) /hpf Urine RBC (Auto) (0-4) /hpf U Hyaline Cast (Auto) (0-5) /lpf U Epithel Cells (Auto) (0-5) /lpf Urine Bacteria (Auto) (Negative) Calcium Oxalate Crystal (None Prsent) Urine Mucus (None Prsent) Nasal Screen MRSA (PCR) (Negative) Random Vancomycin 17.6 (10-20) mcg/ml SARS-CoV-2 (PCR) (Negative) Influenza Type A (PCR) (Neg) Influenza Type B (PCR) (Neg) RSV (RT-PCR) (Neg) SARS-CoV-2, RNA, NAAT (NEGATIVE) 08/15/21 08/15/21 08/15/21 Range/Units 20:16 20:16 17:08 WBC (4.8-10.8) K/uL RBC (4.2-5.4) M/uL Hgb (12.0-16.0) g/dL Hct (37-47) % MCV (80-100) fL MCH (25-34) pg MCHC (32-36) g/dL RDW Std Deviation (36.4-46.3) fL RDW Coeff of Dominic (11.5-14.5) % Plt Count (130-400) K/uL MPV (7.4-10.4) fL Immature Gran % (Auto) % Neut % (Auto) % Lymph % (Auto) % [place] % (Auto) % Eos % (Auto) % Baso % (Auto) % Neut # (Auto) (1.4-6.5) K/uL Lymph # (Auto) (1.2-3.4) K/uL [place] # (Auto) (0.11-0.59) K/uL Eos # (Auto) (0-0.5) K/uL Baso # (Auto) (0-0.2) K/uL Immature Gran # (Auto) (0.00-0.02) K/uL PT (9.0-12.0) Seconds INR (0.9-1.1) APTT (21.0-31.0) Seconds PTT Ratio Sodium (136-145) mmol/L Potassium (3.5-5.1) mmol/L Chloride (98-107) mmol/L Carbon Dioxide (21-32) mmol/L Anion Gap (3-11) BUN (6-23) mg/dl Creatinine (0.6-1.2) mg/dl Est Cr Clr Drug Dosing ml/min Est GFR ( Amer) ml/min Est GFR (Non-Af Amer) ml/min BUN/Creatinine Ratio (10-20) Glucose (70-99(Fasting)) mg/dl Lactate (0.4-2.0) mmol/L Calcium (8.5-10.1) mg/dl Magnesium (1.7-2.4) mg/dl Total Bilirubin (0.2-1.0) mg/dl AST (13-39) U/L ALT (7-52) U/L Alkaline Phosphatase (34-104) U/L Total Creatine Kinase (26-192) U/L Troponin I High Sens (0-14) pg/ml Total Protein (6.0-8.3) gm/dl Albumin (3.4-5.0) gm/dl Globulin (2.5-4.0) gm/dl Albumin/Globulin Ratio (0.9-2) TSH (0.300-4.500) uIu/ml Urine Color Jenni Urine Appearance Clear (Clear) Urine pH 5.0 (4.5-7.5) Ur Specific [place] 1.033 H (1.000-1.030) Urine Protein 1+ H (Negative) Urine Glucose (UA) Negative (Negative) Urine Ketones Trace H (Negative) Urine Blood Negative (Negative) Urine Nitrite Positive A (Negative) Urine Bilirubin 2+ H (Negative) Urine Urobilinogen Negative (Negative) Ur Leukocyte Esterase Trace H (Negative) Urine WBC (Auto) 1-5 (0-5) /hpf Urine RBC (Auto) 0-4 (0-4) /hpf U Hyaline Cast (Auto) 1-5 (0-5) /lpf U Epithel Cells (Auto) 10-20 H (0-5) /lpf Urine Bacteria (Auto) 1+ H (Negative) Calcium Oxalate Crystal Present A (None Prsent) Urine Mucus Present A (None Prsent) Nasal Screen MRSA (PCR) Negative (Negative) Random Vancomycin (10-20) mcg/ml SARS-CoV-2 (PCR) NEGATIVE (Negative) Influenza Type A (PCR) Negative (Neg) Influenza Type B (PCR) Negative (Neg) RSV (RT-PCR) Negative (Neg) SARS-CoV-2, RNA, NAAT (NEGATIVE) 08/15/21 08/15/21 08/15/21 Range/Units 13:05 12:47 12:47 WBC (4.8-10.8) K/uL RBC (4.2-5.4) M/uL Hgb (12.0-16.0) g/dL Hct (37-47) % MCV (80-100) fL MCH (25-34) pg MCHC (32-36) g/dL RDW Std Deviation (36.4-46.3) fL RDW Coeff of Dominic (11.5-14.5) % Plt Count (130-400) K/uL MPV (7.4-10.4) fL Immature Gran % (Auto) % Neut % (Auto) % Lymph % (Auto) % [place] % (Auto) % Eos % (Auto) % Baso % (Auto) % Neut # (Auto) (1.4-6.5) K/uL Lymph # (Auto) (1.2-3.4) K/uL [place] # (Auto) (0.11-0.59) K/uL Eos # (Auto) (0-0.5) K/uL Baso # (Auto) (0-0.2) K/uL Immature Gran # (Auto) (0.00-0.02) K/uL PT (9.0-12.0) Seconds INR (0.9-1.1) APTT (21.0-31.0) Seconds PTT Ratio Sodium (136-145) mmol/L Potassium (3.5-5.1) mmol/L Chloride (98-107) mmol/L Carbon Dioxide (21-32) mmol/L Anion Gap (3-11) BUN (6-23) mg/dl Creatinine (0.6-1.2) mg/dl Est Cr Clr Drug Dosing ml/min Est GFR ( Amer) ml/min Est GFR (Non-Af Amer) ml/min BUN/Creatinine Ratio (10-20) Glucose (70-99(Fasting)) mg/dl Lactate 1.6 (0.4-2.0) mmol/L Calcium (8.5-10.1) mg/dl Magnesium (1.7-2.4) mg/dl Total Bilirubin (0.2-1.0) mg/dl AST (13-39) U/L ALT (7-52) U/L Alkaline Phosphatase (34-104) U/L Total Creatine Kinase (26-192) U/L Troponin I High Sens (0-14) pg/ml Total Protein (6.0-8.3) gm/dl Albumin (3.4-5.0) gm/dl Globulin (2.5-4.0) gm/dl Albumin/Globulin Ratio (0.9-2) TSH 2.307 (0.300-4.500) uIu/ml Urine Color Urine Appearance (Clear) Urine pH (4.5-7.5) Ur Specific [place] (1.000-1.030) Urine Protein (Negative) Urine Glucose (UA) (Negative) Urine Ketones (Negative) Urine Blood (Negative) Urine Nitrite (Negative) Urine Bilirubin (Negative) Urine Urobilinogen (Negative) Ur Leukocyte Esterase (Negative) Urine WBC (Auto) (0-5) /hpf Urine RBC (Auto) (0-4) /hpf U Hyaline Cast (Auto) (0-5) /lpf U Epithel Cells (Auto) (0-5) /lpf Urine Bacteria (Auto) (Negative) Calcium Oxalate Crystal (None Prsent) Urine Mucus (None Prsent) Nasal Screen MRSA (PCR) (Negative) Random Vancomycin (10-20) mcg/ml SARS-CoV-2 (PCR) (Negative) Influenza Type A (PCR) (Neg) Influenza Type B (PCR) (Neg) RSV (RT-PCR) (Neg) SARS-CoV-2, RNA, NAAT NEGATIVE (NEGATIVE) 08/15/21 08/15/21 08/15/21 Range/Units 12:47 12:47 12:47 WBC 9.40 (4.8-10.8) K/uL RBC 4.65 (4.2-5.4) M/uL Hgb 13.4 (12.0-16.0) g/dL Hct 42.5 (37-47) % MCV 91.4 (80-100) fL MCH 28.8 (25-34) pg MCHC 31.5 L (32-36) g/dL RDW Std Deviation 50.2 H (36.4-46.3) fL RDW Coeff of Dominic 15.0 H (11.5-14.5) % Plt Count 403 H (130-400) K/uL MPV 9.8 (7.4-10.4) fL Immature Gran % (Auto) 0.2 % Neut % (Auto) 70.1 % Lymph % (Auto) 17.7 % [place] % (Auto) 10.2 % Eos % (Auto) 1.5 % Baso % (Auto) 0.3 % Neut # (Auto) 6.59 H (1.4-6.5) K/uL Lymph # (Auto) 1.66 (1.2-3.4) K/uL [place] # (Auto) 0.96 H (0.11-0.59) K/uL Eos # (Auto) 0.14 (0-0.5) K/uL Baso # (Auto) 0.03 (0-0.2) K/uL Immature Gran # (Auto) 0.02 (0.00-0.02) K/uL PT 12.3 H (9.0-12.0) Seconds INR 1.2 H (0.9-1.1) APTT 36.7 H (21.0-31.0) Seconds PTT Ratio 1.3 Sodium 136 (136-145) mmol/L Potassium 3.9 (3.5-5.1) mmol/L Chloride 103 (98-107) mmol/L Carbon Dioxide 21 (21-32) mmol/L Anion Gap 12 H (3-11) BUN 22 (6-23) mg/dl Creatinine 1.89 H (0.6-1.2) mg/dl Est Cr Clr Drug Dosing 28.0 ml/min Est GFR ( Amer) 29.1 ml/min Est GFR (Non-Af Amer) 25.2 ml/min BUN/Creatinine Ratio 11.6 (10-20) Glucose 81 (70-99(Fasting)) mg/dl Lactate (0.4-2.0) mmol/L Calcium 9.4 (8.5-10.1) mg/dl Magnesium 1.6 L (1.7-2.4) mg/dl Total Bilirubin 1.2 H (0.2-1.0) mg/dl AST 35 (13-39) U/L ALT 19 (7-52) U/L Alkaline Phosphatase 100 (34-104) U/L Total Creatine Kinase 973 H (26-192) U/L Troponin I High Sens 9.8 (0-14) pg/ml Total Protein 8.2 (6.0-8.3) gm/dl Albumin 3.7 (3.4-5.0) gm/dl Globulin 4.5 H (2.5-4.0) gm/dl Albumin/Globulin Ratio 0.8 L (0.9-2) TSH (0.300-4.500) uIu/ml Urine Color Urine Appearance (Clear) Urine pH (4.5-7.5) Ur Specific [place] (1.000-1.030) Urine Protein (Negative) Urine Glucose (UA) (Negative) Urine Ketones (Negative) Urine Blood (Negative) Urine Nitrite (Negative) Urine Bilirubin (Negative) Urine Urobilinogen (Negative) Ur Leukocyte Esterase (Negative) Urine WBC (Auto) (0-5) /hpf Urine RBC (Auto) (0-4) /hpf U Hyaline Cast (Auto) (0-5) /lpf U Epithel Cells (Auto) (0-5) /lpf Urine Bacteria (Auto) (Negative) Calcium Oxalate Crystal (None Prsent) Urine Mucus (None Prsent) Nasal Screen MRSA (PCR) (Negative) Random Vancomycin (10-20) mcg/ml SARS-CoV-2 (PCR) (Negative) Influenza Type A (PCR) (Neg) Influenza Type B (PCR) (Neg) RSV (RT-PCR) (Neg) SARS-CoV-2, RNA, NAAT (NEGATIVE) Resident Activity Tracking Resident Involvement: Resident Care Provided Care Provided: Adult Hospital Medicine
[2021-08-16] MEDS: LACTATED RINGER'S 1,000 ML IV SCH ×2 (07:53→17:32)
[2021-08-16] MEDS: CETIRIZINE HCL 10 MG TABLET PO SCH (08:01)
[2021-08-16] MEDS: CHOLECALCIFEROL 1,000 UNITS 25 MCG TAB PO SCH (08:01)
[2021-08-16] MEDS: APIXABAN 5 MG TABLET PO SCH ×2 (08:01→20:15)
[2021-08-16] MEDS: NYSTATIN SUSP 500,000 U/5 ML UDC PO SCH ×4 (08:01→20:15)
[2021-08-16 08:43] LABS: Basophils # (auto) 0.04 K/uL (0-0.2); Basophils % (auto) 0.5 %; Eosinophils # (auto) 0.33 K/uL (0-0.5); Eosinophils % (auto) 4.3 %; Hematocrit (blood only) 40.4 % (37-47); Hemoglobin 12.7 g/dL (12.0-16.0); Immature Granulocytes # (auto) 0.02 K/uL (0.00-0.02); Immature Granulocytes % (auto) 0.3 %; Lymphocytes # (auto) 1.34 K/uL (1.2-3.4); Lymphocytes % (auto) 17.5 %; Mean Corpuscular Hemoglobin 28.9 pg (25-34); Mean Corpuscular Hgb Conc 31.4 g/dL (32-36); Mean Platelet Volume 9.8 fL (7.4-10.4); Monocytes # (auto) 0.83 K/uL (0.11-0.59); Monocytes % (auto) 10.8 %; Neutrophils % (auto) 66.6 %; Platelet Count 364 K/uL (130-400); RDW Coefficient of Variation 15.3 % (11.5-14.5); RDW Standard Deviation 52.1 fL (36.4-46.3); Red Blood Count 4.39 M/uL (4.2-5.4); White Blood Count 7.66 K/uL (4.8-10.8)
[2021-08-16 08:45] LABS: Calcium 8.7 mg/dl (8.5-10.1); Creatinine Clr Calc Pharmacy 34.9 ml/min; Est GFR (African American) 37.3 ml/min; Est GFR (Non-African American) 32.2 ml/min; Magnesium 1.9 mg/dl (1.7-2.4); Potassium 4.3 mmol/L (3.5-5.1)
[2021-08-16] MEDS ORDERED: APIXABAN 5 MG TABLET PO SCH (09:00)
[2021-08-16] MEDS: amLODIPine BESYLATE 5 MG TAB PO SCH (11:26)
[2021-08-16] MEDS: METOPROLOL TARTRATE 25 MG TAB PO SCH ×2 (11:27→20:15)
[2021-08-16] MEDS: VANCOMYCIN HCL 1,250 MG in SODIUM CHLORIDE 0.9% 250 ML IV SCH (12:36)
--- NOTE | 2021-08-16 16:55 | Billing Data ---
Date of Service August 16, 2021 Coding Level of Care Code 95759 Subseq Hosp Care Lvl 3
[2021-08-16] MEDS: MONTELUKAST SODIUM 10 MG TABLET PO SCH (20:15)
[2021-08-16] MEDS ORDERED: CALCIUM CARBONATE 500 MG CHEWABLE TAB PO PRN ×2 (22:30→22:38)
[2021-08-17] MEDS: LACTATED RINGER'S 1,000 ML IV SCH ×3 (03:17→22:42)
[2021-08-17 05:53] LABS: Basophils # (auto) 0.02 K/uL (0-0.2); Basophils % (auto) 0.3 %; Eosinophils # (auto) 0.29 K/uL (0-0.5); Eosinophils % (auto) 4.5 %; Hematocrit (blood only) 35.4 % (37-47); Hemoglobin 11.3 g/dL (12.0-16.0); Immature Granulocytes # (auto) 0.01 K/uL (0.00-0.02); Immature Granulocytes % (auto) 0.2 %; Lymphocytes # (auto) 1.15 K/uL (1.2-3.4); Mean Corpuscular Hemoglobin 28.3 pg (25-34); Mean Corpuscular Hgb Conc 31.9 g/dL (32-36); Mean Corpuscular Volume 88.7 fL (80-100); Mean Platelet Volume 9.4 fL (7.4-10.4); Monocytes % (auto) 14.1 %; Neutrophils # (auto) 4.02 K/uL (1.4-6.5); Neutrophils % (auto) 62.9 %; Platelet Count 348 K/uL (130-400); RDW Coefficient of Variation 15.1 % (11.5-14.5); RDW Standard Deviation 48.9 fL (36.4-46.3); Red Blood Count 3.99 M/uL (4.2-5.4); White Blood Count 6.39 K/uL (4.8-10.8)
[2021-08-17 06:17] LABS: Calcium 8.2 mg/dl (8.5-10.1); Creatinine Clr Calc Pharmacy 39.9 ml/min; Est GFR (African American) 43.4 ml/min; Est GFR (Non-African American) 37.4 ml/min; Potassium 3.6 mmol/L (3.5-5.1)
--- NOTE | 2021-08-17 06:51 | Hospitalist Progress Note ---
Date of Service August 17, 2021 Assessment & Plan (1) Weakness: Plan: 76 yo female with PMHx metastatic melanoma, h/o VTE on eliquis, hypertension, GERD who presents today from home with weakness. #SIRS (systemic inflammatory response syndrome) - Tachycardic, febrile in ED. Confused on admission, not her baseline at home but now resolved. - intermittent fevers since admission suspect infection vs FTT - No leukocytosis. Lactate 1.6 - COVID/flu/RSV negative. MRSA swab neg. - UA: possible dirty, trace LE, pos nitrites, no blood - Blood and urine cx negative - Chest XR (08/15): no active disease - Chest CT (08/17): small pleural effusions, no signs of pneumonia - CRP 28, procal 6 - Tylenol for fever as needed. - LRs at 100 cc/hour. - cont. Zosyn for now; low likelihood of MRSA, d/c'd vanc - presumed bacterial infection with elevated inflammatory markers, etiology unclear; will test for tickborne illnesses, if labs negative consider treating regardless with doxy due to false positives - trend cbc, crp, procal #Encephalopathy, resolved - On admission having trouble answering questions appropriately, was derailing conversation with irrelevant questions initially, and hard to interview. Mental status progressively improved throughout admission. - Suspect this transient alteration in her baseline mentation status is in the setting of infection, hypotension, does not seem to be an ongoing issue.Continue to monitor. #Weakness - Generalized, no focal weakness/numbness/tingling. - Suspect is due to decreased p.o. intake, FTT, possible infection. - PT/OT to eval and treat. - Continue to monitor for improvement in response to antibiotics and fluids. #Acute hypotension, resolved - In setting of infection, decreased p.o. intake. MAP >65. Is responsive to IVF. Not requiring vasopressors at this time. #SHAMEKA (acute kidney injury) - Cr 1.89, increased from 0.96 on labs on 07/25. Suspect this is in the setting of dehydration, infection (currently unknown source). - LRs at 100 cc/hour for this as well as rhabdo, hypotension responsive to IVF. - Cr 1.36, improving - Avoid nephrotoxic agents, renally dose medications as able - bmp am #Hypomagnesemia, resolved - mag 1.9, stable #Elevated CK - CK 973 on admission - CK peaked 1200 (08/16) - Likely due to prolonged sitting on toilet 2/2 FTT prior to admission. No falls. - LR at 100 cc/hour #Thrush, oral - cont. nystatin mouthwash 4 times daily. #Chronic laryngitis - Patient complains of hoarseness, this was noted on PCP note from June, this has been an issue apparently for years and she had seen an ENT who told her she had a collapsed vocal cord, has seen speech for this. May be partially due to thrush. #Hypertension - BP stable - cont. home amlodipine, metoprolol #Metastatic Melanoma - Right sided IJ port in place without surrounding erythema, edema, ecchymosis, or tenderness with palpation. - Receives immunotherapy infusions. - CT abd/pelvis (07/11): no evidence of recurrent or metastatic disease - CT chest (07/11): no evidence of metastatic disease #GERD -continue PPI. #History of VTE -cont. Eliquis 5 mg BID. #Itchy rash skin fold, left flank -possible developing intertrigo -started triamcinolone DVT ppx: eliquis 5mg bid FEN/GI: heart healthy Code Status: full Dispo: pcu Admission and Anticipated Discharge Date Admission Date: August 15, 2021 Supervising Physician Co-Signing Physician Notes I personally examined the patient and verified all yousif points of history and exam, discussed case, and agree with decision making with Dr Anderson feeling better than when she came in. Sisters at the bedside. Updated to the best my ability and to their satisfaction. Still feels very weak. No chest pain or cough, no dysuria, has some itchy rash on her back but no painful rashes . No diarrhea. vitals noted nad heent nc mucous membranes now moist, cheeks somewhat loco, breathing unlabored no accessory muscle use good effort, no conversational dyspnea. Dull pruritic flat red nonerythematous nontender area that is a bit nondescript left flank skin folds failure to thrive - w SIRS picture on empiric abx -still appears consistent with bacterial infectionuncertain source. Continue empiric Zosyn. MRSA nares negativeDC Vanco. Low threshold to initiate empiric tick coverage (such as doxycycline), checking labs. Hydration is definitely helped. Weakness/deconditioningPT/OT, read discussed that she may need rehab otherwise as above Subjective Seen at bedside this morning. Feels better than yesterday but still having chills. Otherwise no changes. Review of Systems Review of Systems: All systems reviewed & are unremarkable except as noted in Subjective Physical Exam Physical Exam: General: awake, alert, in mild distress HEENT: NC/AT, EOMI, mildly dry mucous membranes, hard of hearing (better on left), hoarse voice Chest: CTA, no respiratory distress or accessory muscle use Cardiac: regular rate and rhythm, no murmur, no JVD, normal peripheral pulses, good capillary refill Abdominal: soft, nontender to palpation, nondistended, no guarding Extremities: mild acrocyanosis fingers bilaterally, no peripheral edema Psych: normal mood Neuro: AOx3, strength intact bilaterally and rated 5/5, no motor deficits, speech is clear, no peripheral sensory deficits Skin: erythema in skin fold left flank Results & Data Results & Data ([facility]) Vital Signs (Past 12 Hours) Vital Signs Temp Pulse Pulse Resp BP Pulse Ox 08/17/21 03:00 36.8 C 87 16 127/79 90 08/16/21 23:00 36.9 C 20 144/79 H 98 08/16/21 22:30 101 H 08/16/21 19:00 36.9 C 18 110/72 94 Laboratory Results 08/17/21 08/17/21 08/17/21 Range/Units 12:46 12:46 05:29 WBC (4.8-10.8) K/uL RBC (4.2-5.4) M/uL Hgb (12.0-16.0) g/dL Hct (37-47) % MCV (80-100) fL MCH (25-34) pg MCHC (32-36) g/dL RDW Std Deviation (36.4-46.3) fL RDW Coeff of Dominic (11.5-14.5) % Plt Count (130-400) K/uL MPV (7.4-10.4) fL Immature Gran % (Auto) % Neut % (Auto) % Lymph % (Auto) % [place] % (Auto) % Eos % (Auto) % Baso % (Auto) % Neut # (Auto) (1.4-6.5) K/uL Lymph # (Auto) (1.2-3.4) K/uL [place] # (Auto) (0.11-0.59) K/uL Eos # (Auto) (0-0.5) K/uL Baso # (Auto) (0-0.2) K/uL Immature Gran # (Auto) (0.00-0.02) K/uL Sodium 133 L (136-145) mmol/L Potassium 3.6 (3.5-5.1) mmol/L Chloride 105 (98-107) mmol/L Carbon Dioxide 21 (21-32) mmol/L Anion Gap 7 (3-11) BUN 15 (6-23) mg/dl Creatinine 1.36 H (0.6-1.2) mg/dl Est Cr Clr Drug Dosing 39.9 ml/min Est GFR ( Amer) 43.4 ml/min Est GFR (Non-Af Amer) 37.4 ml/min BUN/Creatinine Ratio 11.0 (10-20) Glucose 78 (70-99(Fasting)) mg/dl Calcium 8.2 L (8.5-10.1) mg/dl Total Creatine Kinase 637 H (26-192) U/L C-Reactive Protein 28.95 H (0-0.5) mg/dl Procalcitonin 6.38 H (0-0.5) ng/ml 08/17/21 Range/Units 05:29 WBC 6.39 (4.8-10.8) K/uL RBC 3.99 L (4.2-5.4) M/uL Hgb 11.3 L (12.0-16.0) g/dL Hct 35.4 L (37-47) % MCV 88.7 (80-100) fL MCH 28.3 (25-34) pg MCHC 31.9 L (32-36) g/dL RDW Std Deviation 48.9 H (36.4-46.3) fL RDW Coeff of Dominic 15.1 H (11.5-14.5) % Plt Count 348 (130-400) K/uL MPV 9.4 (7.4-10.4) fL Immature Gran % (Auto) 0.2 % Neut % (Auto) 62.9 % Lymph % (Auto) 18.0 % [place] % (Auto) 14.1 % Eos % (Auto) 4.5 % Baso % (Auto) 0.3 % Neut # (Auto) 4.02 (1.4-6.5) K/uL Lymph # (Auto) 1.15 L (1.2-3.4) K/uL [place] # (Auto) 0.90 H (0.11-0.59) K/uL Eos # (Auto) 0.29 (0-0.5) K/uL Baso # (Auto) 0.02 (0-0.2) K/uL Immature Gran # (Auto) 0.01 (0.00-0.02) K/uL Sodium (136-145) mmol/L Potassium (3.5-5.1) mmol/L Chloride (98-107) mmol/L Carbon Dioxide (21-32) mmol/L Anion Gap (3-11) BUN (6-23) mg/dl Creatinine (0.6-1.2) mg/dl Est Cr Clr Drug Dosing ml/min Est GFR ( Amer) ml/min Est GFR (Non-Af Amer) ml/min BUN/Creatinine Ratio (10-20) Glucose (70-99(Fasting)) mg/dl Calcium (8.5-10.1) mg/dl Total Creatine Kinase (26-192) U/L C-Reactive Protein (0-0.5) mg/dl Procalcitonin (0-0.5) ng/ml Resident Activity Tracking Resident Involvement: Resident Care Provided Care Provided: [facility]
[2021-08-17] MEDS: PIPERACILLIN/TAZOBACTAM 4.5 GM in DEXTROSE 5% 100 ML IV SCH ×3 (08:08→23:43)
[2021-08-17] MEDS: APIXABAN 5 MG TABLET PO SCH ×2 (08:34→20:38)
[2021-08-17] MEDS: METOPROLOL TARTRATE 25 MG TAB PO SCH ×2 (08:34→20:38)
[2021-08-17] MEDS: NYSTATIN SUSP 500,000 U/5 ML UDC PO SCH ×4 (08:34→20:37)
[2021-08-17] MEDS: amLODIPine BESYLATE 5 MG TAB PO SCH (08:35)
[2021-08-17] MEDS: CETIRIZINE HCL 10 MG TABLET PO SCH (08:35)
[2021-08-17] MEDS: CHOLECALCIFEROL 1,000 UNITS 25 MCG TAB PO SCH (08:35)
[2021-08-17] MEDS: VANCOMYCIN HCL 1,250 MG in SODIUM CHLORIDE 0.9% 250 ML IV SCH (11:59)
[2021-08-17] MEDS: ACETAMINOPHEN 325 MG TAB PO PRN (13:42)
--- NOTE | 2021-08-17 14:42 | CT Scan Report ---
CT SCAN OF THE CHEST WITHOUT IV CONTRAST CLINICAL HISTORY: Generalized weakness. Clinical concern for pneumonia. COMPARISON STUDY: Chest x-ray dated 08/15/2021. Chest CT scans dated 07/11/2021 and 02/08/2019. TECHNIQUE: CT scan of the thorax was performed from the thoracic inlet to the upper abdomen. Images are reviewed in the axial, sagittal, and coronal planes. IV contrast was not administered for this ex amination as per the referring clinician. A dose lowering technique was utilized adhering to [facility] DOSE: 505.09 mGy.cm FINDINGS: Thyroid: Imaged portions of the thyroid gland are normal in size and attenuation. Thoracic aorta: There is mild atherosclerotic calcification of the thoracic aorta, which is normal in caliber and demonstrates standard 3-vessel arch anatomy. Heart: A right internal jugular central venous infusion port is in place. The heart is mildly enlarge d and without pericardial effusion. The coronary arteries are densely calcified. Lungs and pleural spaces: Evaluation of the lung parenchyma is significantly degraded by motion artif act. There are small pleural effusions with bibasilar scarring/atelectasis. No airspace consolidation is seen typical for pneumonia. The trachea and central airways appear clear. There are scattered inder cified granulomas. Mediastinum: There is no mediastinal lymphadenopathy. Mildred: Not well assessed without IV contrast. Axillae: There is no axillary lymphadenopathy. Upper abdomen: There is a large hiatal hernia. The majority of the stomach is located in the thorax. Partially visualized upper abdominal viscera is within normal limits. Skeletal structures: The skeletal structures are osteopenic. Degenerative change and hyperkyphosis ar e noted in the thoracic spine. Arthritic change is seen in the shoulders. No lytic or blastic bony le sions are seen. IMPRESSION: 1. Mild cardiomegaly and small pleural effusions. Effusions are new from 07/11/2021. 2. No airspace consolidation is seen typical for pneumonia. 3. Large hiatal hernia. 4. Additional findings as above. ACT 112: Negative or not required by law. Electronically signed by: Shawn Nunez M.D. 08/17/2021 2:40 PM
[2021-08-17] MEDS ORDERED: TRIAMCINOLONE ACET 0.1% CR 80 GM TUBE EXT PRN ×2 (15:56→16:30)
[2021-08-17] MEDS ORDERED: NYSTATIN/TRIAMCIN CR 15 GM TUBE EXT PRN (16:24)
--- NOTE | 2021-08-17 16:58 | Billing Data ---
Date of Service August 17, 2021 Coding Level of Care Code 82798 Subseq Hosp Care Lvl 3
[2021-08-17] MEDS: MONTELUKAST SODIUM 10 MG TABLET PO SCH (20:37)
[2021-08-18] MEDS: amLODIPine BESYLATE 5 MG TAB PO SCH (08:31)
[2021-08-18] MEDS: METOPROLOL TARTRATE 25 MG TAB PO SCH ×3 (08:32→22:15)
[2021-08-18] MEDS: CHOLECALCIFEROL 1,000 UNITS 25 MCG TAB PO SCH (08:32)
[2021-08-18] MEDS: CETIRIZINE HCL 10 MG TABLET PO SCH (08:32)
[2021-08-18] MEDS: APIXABAN 5 MG TABLET PO SCH ×2 (08:32→21:36)
[2021-08-18] MEDS: LACTATED RINGER'S 1,000 ML IV SCH ×2 (08:33→21:34)
[2021-08-18] MEDS: NYSTATIN SUSP 500,000 U/5 ML UDC PO SCH ×4 (08:33→21:36)
[2021-08-18] MEDS: PIPERACILLIN/TAZOBACTAM 4.5 GM in DEXTROSE 5% 100 ML IV SCH ×2 (08:40→15:43)
[2021-08-18 08:50] LABS: Basophils # (auto) 0.01 K/uL (0-0.2); Basophils % (auto) 0.2 %; Eosinophils # (auto) 0.29 K/uL (0-0.5); Eosinophils % (auto) 5.7 %; Hematocrit (blood only) 36.1 % (37-47); Hemoglobin 11.6 g/dL (12.0-16.0); Immature Granulocytes # (auto) 0.01 K/uL (0.00-0.02); Immature Granulocytes % (auto) 0.2 %; Lymphocytes # (auto) 1.06 K/uL (1.2-3.4); Lymphocytes % (auto) 20.9 %; Mean Corpuscular Hemoglobin 28.7 pg (25-34); Mean Corpuscular Hgb Conc 32.1 g/dL (32-36); Mean Corpuscular Volume 89.4 fL (80-100); Mean Platelet Volume 9.4 fL (7.4-10.4); Monocytes # (auto) 0.59 K/uL (0.11-0.59); Monocytes % (auto) 11.6 %; Neutrophils # (auto) 3.12 K/uL (1.4-6.5); Neutrophils % (auto) 61.4 %; Platelet Count 377 K/uL (130-400); RDW Coefficient of Variation 15.1 % (11.5-14.5); RDW Standard Deviation 49.1 fL (36.4-46.3); Red Blood Count 4.04 M/uL (4.2-5.4); White Blood Count 5.08 K/uL (4.8-10.8)
[2021-08-18 09:04] LABS: Albumin Globulin Ratio 0.8 (0.9-2); Albumin Level 2.5 gm/dl (3.4-5.0); BUN Creatinine Ratio 8.3 (10-20); Bilirubin,Total 0.9 mg/dl (0.2-1.0); C Reactive Protein 28.61 mg/dl (0-0.5); Calcium 8.2 mg/dl (8.5-10.1); Creatinine Clr Calc Pharmacy 45.9 ml/min; Est GFR (Non-African American) 43.1 ml/min; Globulin 3.3 gm/dl (2.5-4.0); Potassium 3.7 mmol/L (3.5-5.1); Total Protein 5.8 gm/dl (6.0-8.3)
[2021-08-18 09:33] LABS: Procalcitonin 3.97 ng/ml (0-0.5)
[2021-08-18 09:40] LABS: Lyme Ab IgG w/WB Rflx Negative (Negative); Lyme Ab IgM w/WB Rflx Negative (Negative)
[2021-08-18] MEDS: DOXYCYCLINE HYCLATE 100 MG in DEXTROSE 5% 100 ML IV SCH (12:24)
[2021-08-18] MEDS: ACETAMINOPHEN 325 MG TAB PO PRN ×2 (12:29→22:15)
--- NOTE | 2021-08-18 13:49 | Hospitalist Progress Note ---
Date of Service August 18, 2021 Assessment & Plan (1) Weakness: Plan: 76 yo female with PMHx metastatic melanoma, h/o VTE on eliquis, hypertension, GERD who presents today from home with weakness. #SIRS (systemic inflammatory response syndrome) - Tachycardic, febrile in ED. Confused on admission, not her baseline at home but now resolved. - intermittent fevers since admission suspect infection vs FTT - No leukocytosis. Lactate 1.6 - COVID/flu/RSV negative. MRSA swab neg. - UA: possible dirty, trace LE, pos nitrites, no blood - Blood and urine cx negative - Chest XR (08/15): no active disease - Chest CT (08/17): small pleural effusions, no signs of pneumonia - CRP 28, procal 3 - presumed bacterial infection with elevated inflammatory markers, etiology unclear - cont. Zosyn; low likelihood of MRSA, d/c'd vanc (08/17) - tickborne illness panel thus far negative; however, will start doxycycline IV 100mg bid for coverage - Tylenol for fever as needed. - cont. LRs at 100 cc/hour. - trend cbc, crp, procal #Weakness - Generalized, no focal weakness/numbness/tingling. - Suspect is due to decreased p.o. intake, FTT, infection. - PT/OT to eval and treat. - Continue to monitor for improvement in response to antibiotics and fluids. #SHAMEKA (acute kidney injury) - Cr 1.89, increased from 0.96 on labs on 07/25. Suspect this is in the setting of dehydration, infection (currently unknown source). - Cont. LRs at 100 cc/hour - Cr 1.21, improving - Avoid nephrotoxic agents, renally dose medications as able - bmp am #Encephalopathy, resolved - On admission having trouble answering questions appropriately, was derailing conversation with irrelevant questions initially, and hard to interview. Mental status progressively improved throughout admission. - Suspect this transient alteration in her baseline mentation status is in the setting of infection, hypotension, does not seem to be an ongoing issue.Continue to monitor. #Acute hypotension, - In setting of infection, decreased p.o. intake. MAP >65. Is responsive to IVF. Not requiring vasopressors at this time. - Continue LR at 100ml/hr. Hold amlodipine #Hypomagnesemia, resolved - mag 1.9, stable #Elevated CK, resolved - CK 973 on admission - CK peaked 1200 (08/16) - Likely due to prolonged ambulatory dysfunction prior to admission. No falls. #Thrush, oral - cont. nystatin mouthwash 4 times daily. #Chronic laryngitis - Patient complains of hoarseness, this was noted on PCP note from June, this has been an issue apparently for years and she had seen an ENT who told her she had a collapsed vocal cord, has seen speech for this. May be partially due to thrush. #Hypertension - lower SBP - Hold amlodipine. - cont. metoprolol #Metastatic Melanoma - Right sided IJ port in place without surrounding erythema, edema, ecchymosis, or tenderness with palpation. - Receives immunotherapy infusions. - CT abd/pelvis (07/11): no evidence of recurrent or metastatic disease - CT chest (07/11): no evidence of metastatic disease #GERD -continue PPI #History of VTE -cont. Eliquis 5 mg BID #Itchy rash skin fold, left flank -possible developing intertrigo -cont. triamcinolone DVT ppx: eliquis 5mg bid FEN/GI: heart healthy, LR 100ml/hr Code Status: full Dispo: downgrade to med/surg Admission and Anticipated Discharge Date Admission Date: August 15, 2021 Supervising Physician Co-Signing Physician Notes Resident Physician Supervision Note: I independently interviewed and examined the patient and verified the yousif history and physical, reviewed labs and image studies and agree with resident Dr. Becky Anderson findings and care plan. Subjective Seen at bedside this morning. Feels better than yesterday but still having fevers and chills. Otherwise no changes. Review of Systems Review of Systems: All systems reviewed & are unremarkable except as noted in Subjective Physical Exam Physical Exam: General: awake, comfortable laying in bed HEENT: NC/AT, EOMI, mildly dry mucous membranes, hard of hearing (better on left), hoarse voice Chest: CTA, no respiratory distress or accessory muscle use Cardiac: tachycardic, normal rhythm, no murmur, no JVD, normal peripheral pulses, good capillary refill Abdominal: soft, nontender to palpation, nondistended, no guarding Extremities: mild acrocyanosis fingers bilaterally, no peripheral edema Psych: normal mood Neuro: AOx3, strength intact bilaterally and rated 5/5, no peripheral sensory deficits Skin: erythema near skin fold left flank Results & Data Results & Data ([facility]) Vital Signs (Past 12 Hours) Vital Signs Temp Pulse Pulse Resp BP Pulse Ox 08/18/21 12:22 38.5 C H 101 H 24 125/64 93 08/18/21 07:55 38.0 C H 97 H 20 115/73 92 08/18/21 03:30 37.4 C 94 H 18 114/79 90 Laboratory Results 08/18/21 08/18/21 08/18/21 Range/Units 08:18 08:18 08:18 WBC (4.8-10.8) K/uL RBC (4.2-5.4) M/uL Hgb (12.0-16.0) g/dL Hct (37-47) % MCV (80-100) fL MCH (25-34) pg MCHC (32-36) g/dL RDW Std Deviation (36.4-46.3) fL RDW Coeff of Dominic (11.5-14.5) % Plt Count (130-400) K/uL MPV (7.4-10.4) fL Immature Gran % (Auto) % Neut % (Auto) % Lymph % (Auto) % [place] % (Auto) % Eos % (Auto) % Baso % (Auto) % Neut # (Auto) (1.4-6.5) K/uL Lymph # (Auto) (1.2-3.4) K/uL [place] # (Auto) (0.11-0.59) K/uL Eos # (Auto) (0-0.5) K/uL Baso # (Auto) (0-0.2) K/uL Immature Gran # (Auto) (0.00-0.02) K/uL Sodium 133 L (136-145) mmol/L Potassium 3.7 (3.5-5.1) mmol/L Chloride 103 (98-107) mmol/L Carbon Dioxide 22 (21-32) mmol/L Anion Gap 8 (3-11) BUN 10 (6-23) mg/dl Creatinine 1.21 H (0.6-1.2) mg/dl Est Cr Clr Drug Dosing 45.9 ml/min Est GFR ( Amer) 50.0 ml/min Est GFR (Non-Af Amer) 43.1 ml/min BUN/Creatinine Ratio 8.3 L (10-20) Glucose 74 (70-99(Fasting)) mg/dl Calcium 8.2 L (8.5-10.1) mg/dl Total Bilirubin 0.9 (0.2-1.0) mg/dl AST 27 (13-39) U/L ALT 17 (7-52) U/L Alkaline Phosphatase 69 (34-104) U/L C-Reactive Protein 28.61 H (0-0.5) mg/dl Total Protein 5.8 L (6.0-8.3) gm/dl Albumin 2.5 L (3.4-5.0) gm/dl Globulin 3.3 (2.5-4.0) gm/dl Albumin/Globulin Ratio 0.8 L (0.9-2) Procalcitonin 3.97 H (0-0.5) ng/ml Anaplasma Smear A. phagocytophilum DNA Pending Babesia Smear Babesia microti DNA PCR Lyme Disease IgG Ab Negative (Negative) Lyme Disease IgM Ab Negative (Negative) 08/18/21 08/17/21 Range/Units 08:18 05:25 WBC 5.08 (4.8-10.8) K/uL RBC 4.04 L (4.2-5.4) M/uL Hgb 11.6 L (12.0-16.0) g/dL Hct 36.1 L (37-47) % MCV 89.4 (80-100) fL MCH 28.7 (25-34) pg MCHC 32.1 (32-36) g/dL RDW Std Deviation 49.1 H (36.4-46.3) fL RDW Coeff of Dominic 15.1 H (11.5-14.5) % Plt Count 377 (130-400) K/uL MPV 9.4 (7.4-10.4) fL Immature Gran % (Auto) 0.2 % Neut % (Auto) 61.4 % Lymph % (Auto) 20.9 % [place] % (Auto) 11.6 % Eos % (Auto) 5.7 % Baso % (Auto) 0.2 % Neut # (Auto) 3.12 (1.4-6.5) K/uL Lymph # (Auto) 1.06 L (1.2-3.4) K/uL [place] # (Auto) 0.59 (0.11-0.59) K/uL Eos # (Auto) 0.29 (0-0.5) K/uL Baso # (Auto) 0.01 (0-0.2) K/uL Immature Gran # (Auto) 0.01 (0.00-0.02) K/uL Sodium (136-145) mmol/L Potassium (3.5-5.1) mmol/L Chloride (98-107) mmol/L Carbon Dioxide (21-32) mmol/L Anion Gap (3-11) BUN (6-23) mg/dl Creatinine (0.6-1.2) mg/dl Est Cr Clr Drug Dosing ml/min Est GFR ( Amer) ml/min Est GFR (Non-Af Amer) ml/min BUN/Creatinine Ratio (10-20) Glucose (70-99(Fasting)) mg/dl Calcium (8.5-10.1) mg/dl Total Bilirubin (0.2-1.0) mg/dl AST (13-39) U/L ALT (7-52) U/L Alkaline Phosphatase (34-104) U/L C-Reactive Protein (0-0.5) mg/dl Total Protein (6.0-8.3) gm/dl Albumin (3.4-5.0) gm/dl Globulin (2.5-4.0) gm/dl Albumin/Globulin Ratio (0.9-2) Procalcitonin (0-0.5) ng/ml Anaplasma Smear See Comment A. phagocytophilum DNA Babesia Smear See Comment Babesia microti DNA PCR Pending Lyme Disease IgG Ab (Negative) Lyme Disease IgM Ab (Negative) Resident Activity Tracking Resident Involvement: Resident Care Provided Care Provided: Adult [facility]
[2021-08-18] MEDS: MONTELUKAST SODIUM 10 MG TABLET PO SCH (21:36)
[2021-08-19] MEDS: DOXYCYCLINE HYCLATE 100 MG in DEXTROSE 5% 100 ML IV SCH ×3 (00:28→23:25)
[2021-08-19] MEDS: PIPERACILLIN/TAZOBACTAM 4.5 GM in DEXTROSE 5% 100 ML IV SCH ×3 (01:09→21:54)
[2021-08-19] MEDS: LACTATED RINGER'S 1,000 ML IV SCH ×2 (04:57→15:03)
[2021-08-19] MEDS: CETIRIZINE HCL 10 MG TABLET PO SCH (08:01)
[2021-08-19] MEDS: CHOLECALCIFEROL 1,000 UNITS 25 MCG TAB PO SCH (08:02)
[2021-08-19] MEDS: NYSTATIN SUSP 500,000 U/5 ML UDC PO SCH ×5 (08:02→20:21)
[2021-08-19] MEDS: APIXABAN 5 MG TABLET PO SCH ×2 (08:02→20:18)
[2021-08-19] MEDS: METOPROLOL TARTRATE 25 MG TAB PO SCH ×2 (08:02→22:45)
[2021-08-19 08:11] LABS: Basophils # (auto) 0.02 K/uL (0-0.2); Basophils % (auto) 0.6 %; Eosinophils # (auto) 0.29 K/uL (0-0.5); Eosinophils % (auto) 8.7 %; Hematocrit (blood only) 34.6 % (37-47); Hemoglobin 11.1 g/dL (12.0-16.0); Immature Granulocytes # (auto) 0.02 K/uL (0.00-0.02); Immature Granulocytes % (auto) 0.6 %; Lymphocytes # (auto) 0.75 K/uL (1.2-3.4); Lymphocytes % (auto) 22.4 %; Mean Corpuscular Hemoglobin 28.2 pg (25-34); Mean Corpuscular Hgb Conc 32.1 g/dL (32-36); Mean Platelet Volume 9.3 fL (7.4-10.4); Monocytes # (auto) 0.67 K/uL (0.11-0.59); Neutrophils % (auto) 47.7 %; Platelet Count 359 K/uL (130-400); RDW Standard Deviation 48.4 fL (36.4-46.3); Red Blood Count 3.93 M/uL (4.2-5.4); White Blood Count 3.35 K/uL (4.8-10.8)
[2021-08-19 09:09] LABS: BUN Creatinine Ratio 8.5 (10-20); C Reactive Protein 23.04 mg/dl (0-0.5); Calcium 8.2 mg/dl (8.5-10.1); Est GFR (African American) 51.5 ml/min; Est GFR (Non-African American) 44.5 ml/min; Potassium 3.6 mmol/L (3.5-5.1)
--- NOTE | 2021-08-19 10:05 | Hospitalist Progress Note ---
Date of Service August 19, 2021 Assessment & Plan (1) Weakness: Plan: 76 yo female with PMHx metastatic melanoma, h/o VTE on eliquis, hypertension, GERD who presents today from home with weakness. #SIRS (systemic inflammatory response syndrome) Sepsis, POA due to suspected unidentified bacterial infection - Tachycardic, febrile in ED. Confused on admission, not her baseline at home but now resolved. - No leukocytosis. Lactate 1.6 - COVID/flu/RSV negative. MRSA swab neg. - Blood and urine cx negative - Chest XR (08/15): no active disease - Chest CT (08/17): small pleural effusions, no signs of pneumonia - CRP 23, procal 2 - low likelihood of MRSA, d/c'd vanc (08/17) - zosyn since 08/15 for any unidentified bacterial source. follow - tickborne illness panel thus far negative; however, improving on addition of doxycycline IV 100mg bid, cont. - Tylenol for fever as needed. - cont. LRs at 100 cc/hour. - trend cbc, crp, procal #Weakness - Generalized, no focal weakness/numbness/tingling. - Suspect is due to decreased infection, p.o. intake, FTT - PT/OT to eval and treat. - Continue to monitor for improvement in response to antibiotics and fluids. #SHAMEKA (acute kidney injury) resolved - Cr 1.89, increased from 0.96 on labs on 07/25. Prerenal - Avoid nephrotoxic agents, renally dose medications as able - bmp am #Metabolic Encephalopathy, treated and resolved - On admission having trouble answering questions appropriately, was derailing conversation with irrelevant questions initially, and hard to interview. Mental status progressively improved throughout admission. - Suspect this transient alteration in her baseline mentation status is in the setting of infection, hypotension, does not seem to be an ongoing issue.Continue to monitor. #Acute hypotension, - In setting of infection, decreased p.o. intake. MAP >65. Is responsive to IVF. Not requiring vasopressors at this time. - Continue LR at 100ml/hr. Hold amlodipine #Hypomagnesemia, resolved - mag 1.9, stable #Rhabdomyolysis resolved - CK 973 on admission - CK peaked 1200 (08/16) - Likely due to prolonged ambulatory dysfunction prior to admission. No falls. #Thrush, oral - cont. nystatin mouthwash 4 times daily. #Chronic laryngitis - Patient complains of hoarseness, this was noted on PCP note from June, this has been an issue apparently for years and she had seen an ENT who told her she had a collapsed vocal cord, has seen speech for this.May be partially due to thrush. - Appreciate speech consult: no aspiration risk, +esophageal dysmotility 2/2 h/o gerd, hiatal hernia, nonobstructive mucosal ring - Recommend outpatient GI follow up - Scheduled outpatient ENT appt on 09/02 #Hypertension - lower SBP - Hold amlodipine. - cont. metoprolol #Metastatic Melanoma - Right sided IJ port in place without surrounding erythema, edema, ecchymosis, or tenderness with palpation. - Receives immunotherapy infusions. - CT abd/pelvis (07/11): no evidence of recurrent or metastatic disease - CT chest (07/11): no evidence of metastatic disease #GERD -continue PPI #History of VTE -cont. Eliquis 5 mg BID #Itchy rash skin fold, left flank -possible developing intertrigo -cont. triamcinolone DVT ppx: eliquis 5mg bid FEN/GI: heart healthy, LR 100ml/hr Code Status: full Dispo: med/surg, transition to center care for rehab Admission and Anticipated Discharge Date Admission Date: August 15, 2021 Supervising Physician Co-Signing Physician Notes Resident Physician Supervision Note: I independently interviewed and examined the patient and verified the yousif history and physical, reviewed labs and image studies and agree with resident Dr. Becky Anderson findings and care plan. Subjective Seen at bedside this morning. Some difficulty swallowing pills and drinking water overnight but states this is a chronic problem. Overall feels better than yesterday. Denies fevers or chills. Review of Systems Review of Systems: All systems reviewed & are unremarkable except as noted in Subjective Physical Exam Physical Exam: General: awake, comfortable laying in bed HEENT: NC/AT, EOMI, moist mucous membranes, hard of hearing (better on left), hoarse voice Chest: CTA, no respiratory distress or accessory muscle use Cardiac: RRR, no murmur, no JVD, normal peripheral pulses, good capillary refill Abdominal: soft, nontender to palpation, nondistended, no guarding Extremities: no acrocyanosis, no peripheral edema Psych: normal mood Neuro: AOx3, strength intact bilaterally and rated 5/5, no peripheral sensory deficits Skin: erythema near skin fold left flank Results & Data Results & Data ([facility]) Vital Signs (Past 12 Hours) Vital Signs Temp Pulse Resp BP Pulse Ox 08/19/21 07:27 36.8 C 85 16 106/64 93 08/19/21 05:06 92 H 101/65 91 Laboratory Results 08/19/21 08/19/21 08/19/21 Range/Units 07:41 07:41 07:41 WBC 3.35 L (4.8-10.8) K/uL RBC 3.93 L (4.2-5.4) M/uL Hgb 11.1 L (12.0-16.0) g/dL Hct 34.6 L (37-47) % MCV 88.0 (80-100) fL MCH 28.2 (25-34) pg MCHC 32.1 (32-36) g/dL RDW Std Deviation 48.4 H (36.4-46.3) fL RDW Coeff of Dominic 15.0 H (11.5-14.5) % Plt Count 359 (130-400) K/uL MPV 9.3 (7.4-10.4) fL Immature Gran % (Auto) 0.6 % Neut % (Auto) 47.7 % Lymph % (Auto) 22.4 % [place] % (Auto) 20.0 % Eos % (Auto) 8.7 % Baso % (Auto) 0.6 % Neut # (Auto) 1.60 (1.4-6.5) K/uL Lymph # (Auto) 0.75 L (1.2-3.4) K/uL [place] # (Auto) 0.67 H (0.11-0.59) K/uL Eos # (Auto) 0.29 (0-0.5) K/uL Baso # (Auto) 0.02 (0-0.2) K/uL Immature Gran # (Auto) 0.02 (0.00-0.02) K/uL Sodium 132 L (136-145) mmol/L Potassium 3.6 (3.5-5.1) mmol/L Chloride 104 (98-107) mmol/L Carbon Dioxide 24 (21-32) mmol/L Anion Gap 4 (3-11) BUN 10 (6-23) mg/dl Creatinine 1.18 (0.6-1.2) mg/dl Est Cr Clr Drug Dosing 47.0 ml/min Est GFR ( Amer) 51.5 ml/min Est GFR (Non-Af Amer) 44.5 ml/min BUN/Creatinine Ratio 8.5 L (10-20) Glucose 74 (70-99(Fasting)) mg/dl Calcium 8.2 L (8.5-10.1) mg/dl C-Reactive Protein 23.04 H (0-0.5) mg/dl Procalcitonin 2.33 H (0-0.5) ng/ml Resident Activity Tracking Resident Involvement: Resident Care Provided Care Provided: Adult Hospital Medicine
[2021-08-19] MEDS: PANTOprazole 40 MG TAB PO SCH (12:18)
--- NOTE | 2021-08-19 13:39 | Fluoroscopy Report ---
VIDEO SWALLOW STUDY CLINICAL HISTORY: Aspiration. COMPARISON STUDY: No priors. Fluoroscopy time: 3.0 minutes. FINDINGS: Fluoroscopic guidance is provided to the Department of Speech Pathology in performing a vid eo swallow study. The patient consumed barium-impregnated pudding, cracker with paste, and thin bariu m while the swallowing mechanism was observed in real-time. A central venous infusion port is noted. Silent aspiration was seen with thin barium. No aspiration was seen with the remaining sampled textur es. Esophageal dysmotility was observed. There is a large hiatal hernia. IMPRESSION: 1. Silent aspiration was seen with thin barium. 2. No aspiration was seen with the remaining sampled textures. 3. Hiatal hernia and esophageal dysmotility. 4. See dedicated speech pathology report for detailed findings and recommendations. Dictated: 08/19/2021 12:37 PM Transcribed: 08/19/2021 1:01 PM [place] [id number] [facility] Electronically signed by: Shawn Nunez M.D. 08/19/2021 1:38 PM
[2021-08-19] MEDS: ACETAMINOPHEN 325 MG TAB PO PRN (17:55)
[2021-08-19] MEDS ORDERED: PIPERACILL/TAZOBAC CONSULT ACTIVE PRN (20:01)
[2021-08-19] MEDS: MONTELUKAST SODIUM 10 MG TABLET PO SCH (20:18)
[2021-08-20] MEDS: LACTATED RINGER'S 1,000 ML IV SCH (01:28)
[2021-08-20] MEDS: PIPERACILLIN/TAZOBACTAM 4.5 GM in DEXTROSE 5% 100 ML IV SCH (05:14)
[2021-08-20 06:12] LABS: Hematocrit (blood only) 34.4 % (37-47); Hemoglobin 11.4 g/dL (12.0-16.0); Mean Corpuscular Hemoglobin 29.4 pg (25-34); Mean Corpuscular Hgb Conc 33.1 g/dL (32-36); Mean Corpuscular Volume 88.7 fL (80-100); Mean Platelet Volume 9.4 fL (7.4-10.4); Platelet Count 377 K/uL (130-400); RDW Standard Deviation 48.7 fL (36.4-46.3); Red Blood Count 3.88 M/uL (4.2-5.4); White Blood Count 3.02 K/uL (4.8-10.8)
[2021-08-20 06:28] LABS: BUN Creatinine Ratio 8.4 (10-20); C Reactive Protein 17.13 mg/dl (0-0.5); Calcium 8.3 mg/dl (8.5-10.1); Creatinine Clr Calc Pharmacy 51.9 ml/min; Potassium 3.5 mmol/L (3.5-5.1)
[2021-08-20 06:48] LABS: Basophils # (auto) 0.04 K/uL (0-0.2); Basophils % (auto) 1.3 %; Eosinophils # (auto) 0.38 K/uL (0-0.5); Eosinophils % (auto) 12.6 %; Immature Granulocytes # (auto) 0.01 K/uL (0.00-0.02); Immature Granulocytes % (auto) 0.3 %; Lymphocytes # (auto) 1.08 K/uL (1.2-3.4); Lymphocytes % (auto) 35.8 %; Monocytes # (auto) 0.55 K/uL (0.11-0.59); Monocytes % (auto) 18.2 %; Neutrophils # (auto) 0.96 K/uL (1.4-6.5); Neutrophils % (auto) 31.8 %
[2021-08-20 06:49] LABS: RBC Morphology Unremarkable
--- NOTE | 2021-08-20 07:40 | Hospitalist Progress Note ---
Date of Service August 20, 2021 Assessment & Plan (1) Weakness: Plan: 76 yo female with PMHx metastatic melanoma, h/o VTE on eliquis, hypertension, GERD who presents today from home with weakness. #SIRS (systemic inflammatory response syndrome) Sepsis, POA due to suspected unidentified bacterial infection - Tachycardic, febrile in ED. Confused on admission, not her baseline at home but now resolved. - No leukocytosis. Lactate 1.6 - COVID/flu/RSV negative. MRSA swab neg. - Blood and urine cx negative - Fungal blood cx pending - Chest XR (08/15): no active disease - Chest CT (08/17): small pleural effusions, no signs of pneumonia - CT abd/pel (08/20): no infectious or inflammatory findings - CRP 17, procal 1; improving - low likelihood of MRSA, d/c'd vanc (08/17) - d/c'd morning of 08/20; afebrile since - tickborne illness panel thus far negative; continue doxycycline as empiric treatment - check fungal culture - check CT abdomen - Tylenol for fever as needed. - trend cbc, crp, procal #Weakness - Generalized, no focal weakness/numbness/tingling. - Suspect is due to decreased infection, p.o. intake, FTT - PT/OT to eval and treat. - Continue to monitor for improvement in response to antibiotics and fluids. #SHAMEKA (acute kidney injury) resolved - on admission Cr 1.89, baseline 0.96 on labs on 07/25. Prerenal. Now wnl. - Avoid nephrotoxic agents, renally dose medications as able - bmp am #Metabolic Encephalopathy, treated and resolved - On admission having trouble answering questions appropriately, was derailing conversation with irrelevant questions initially, and hard to interview. Mental status progressively improved throughout admission. - Suspect this transient alteration in her baseline mentation status is in the setting of infection, hypotension, does not seem to be an ongoing issue.Continue to monitor. #Acute hypotension, - In setting of infection, decreased p.o. intake. MAP >65. Is responsive to IVF . Not requiring vasopressors at this time. - D/c'd IVF. Hold amlodipine #Hypomagnesemia, resolved - mag 1.9, stable #Rhabdomyolysis resolved - CK 973 on admission - CK peaked 1200 (08/16) - Likely due to prolonged ambulatory dysfunction prior to admission. No falls. #Thrush, oral - cont. nystatin mouthwash 4 times daily. - chloraseptic spray for mouth pain #Chronic laryngitis - Patient complains of hoarseness, this was noted on PCP note from June, this has been an issue apparently for years and she had seen an ENT who told her she had a collapsed vocal cord, has seen speech for this.May be partially due to thrush. - Appreciate speech consult: no aspiration risk, +esophageal dysmotility 2/2 h/o gerd, hiatal hernia, nonobstructive mucosal ring - Recommend outpatient GI follow up - Scheduled outpatient ENT appt on 09/02 #Hypertension - lower SBP - Hold amlodipine. - cont. metoprolol #Metastatic Melanoma - Right sided IJ port in place without surrounding erythema, edema, ecchymosis, or tenderness with palpation. - Receives immunotherapy infusions. Spoke with heme/onc, last infusion on 07/28 which should not increase risk of infection. - CT abd/pelvis (07/11): no evidence of recurrent or metastatic disease - CT chest (07/11): no evidence of metastatic disease #GERD -continue PPI #History of VTE -cont. Eliquis 5 mg BID #Itchy rash skin fold, left flank -possible developing intertrigo -cont. triamcinolone DVT ppx: eliquis 5mg bid FEN/GI: heart healthy Code Status: full Dispo: med/surg Admission and Anticipated Discharge Date Admission Date: August 15, 2021 Supervising Physician Co-Signing Physician Notes Resident Physician Supervision Note: I independently interviewed and examined the patient and verified the yousif history and physical, reviewed labs and image studies and agree with resident Dr. Becky Anderson findings and care plan. Subjective Seen at bedside this morning. Afebrile overnight after restarting zosyn yesterday evening. Denies fever, chills. Review of Systems Review of Systems: All systems reviewed & are unremarkable except as noted in Subjective Physical Exam Physical Exam: General: awake, comfortable laying in bed HEENT: NC/AT, EOMI, moist mucous membranes, hard of hearing (better on left), hoarse voice Chest: CTA, no respiratory distress or accessory muscle use Cardiac: RRR, no murmur, no JVD, normal peripheral pulses, good capillary refill Abdominal: soft, nontender to palpation, nondistended, no guarding Extremities: no acrocyanosis, no peripheral edema Psych: normal mood Neuro: AOx3, strength intact bilaterally and rated 5/5, no peripheral sensory de ficits Skin: erythema near skin fold left flank Results & Data Results & Data ([facility]) Vital Signs (Past 12 Hours) Vital Signs Temp Pulse Pulse Resp BP BP Pulse Ox 08/20/21 00:12 82 101/64 92 08/19/21 21:22 36.4 C L 87 14 95/58 L 94 08/19/21 20:02 37 C 97 H 16 89/55 L 93 Laboratory Results 08/20/21 08/20/21 08/20/21 Range/Units 05:34 05:34 05:34 WBC 3.02 L (4.8-10.8) K/uL RBC 3.88 L (4.2-5.4) M/uL Hgb 11.4 L (12.0-16.0) g/dL Hct 34.4 L (37-47) % MCV 88.7 (80-100) fL MCH 29.4 (25-34) pg MCHC 33.1 (32-36) g/dL RDW Std Deviation 48.7 H (36.4-46.3) fL RDW Coeff of Dominic 15.0 H (11.5-14.5) % Plt Count 377 (130-400) K/uL MPV 9.4 (7.4-10.4) fL Immature Gran % (Auto) 0.3 % Neut % (Auto) 31.8 % Lymph % (Auto) 35.8 % [place] % (Auto) 18.2 % Eos % (Auto) 12.6 % Baso % (Auto) 1.3 % Neut # (Auto) 0.96 L* (1.4-6.5) K/uL Lymph # (Auto) 1.08 L (1.2-3.4) K/uL [place] # (Auto) 0.55 (0.11-0.59) K/uL Eos # (Auto) 0.38 (0-0.5) K/uL Baso # (Auto) 0.04 (0-0.2) K/uL Immature Gran # (Auto) 0.01 (0.00-0.02) K/uL RBC Morphology Unremarkable Sodium 135 L (136-145) mmol/L Potassium 3.5 (3.5-5.1) mmol/L Chloride 106 (98-107) mmol/L Carbon Dioxide 23 (21-32) mmol/L Anion Gap 6 (3-11) BUN 9 (6-23) mg/dl Creatinine 1.07 (0.6-1.2) mg/dl Est Cr Clr Drug Dosing 51.9 ml/min Est GFR ( Amer) 58.0 ml/min Est GFR (Non-Af Amer) 50.0 ml/min BUN/Creatinine Ratio 8.4 L (10-20) Glucose 77 (70-99(Fasting)) mg/dl Calcium 8.3 L (8.5-10.1) mg/dl C-Reactive Protein 17.13 H (0-0.5) mg/dl Procalcitonin 1.24 H (0-0.5) ng/ml 08/19/21 08/19/21 08/19/21 Range/Units 07:41 07:41 07:41 WBC 3.35 L (4.8-10.8) K/uL RBC 3.93 L (4.2-5.4) M/uL Hgb 11.1 L (12.0-16.0) g/dL Hct 34.6 L (37-47) % MCV 88.0 (80-100) fL MCH 28.2 (25-34) pg MCHC 32.1 (32-36) g/dL RDW Std Deviation 48.4 H (36.4-46.3) fL RDW Coeff of Dominic 15.0 H (11.5-14.5) % Plt Count 359 (130-400) K/uL MPV 9.3 (7.4-10.4) fL Immature Gran % (Auto) 0.6 % Neut % (Auto) 47.7 % Lymph % (Auto) 22.4 % [place] % (Auto) 20.0 % Eos % (Auto) 8.7 % Baso % (Auto) 0.6 % Neut # (Auto) 1.60 (1.4-6.5) K/uL Lymph # (Auto) 0.75 L (1.2-3.4) K/uL [place] # (Auto) 0.67 H (0.11-0.59) K/uL Eos # (Auto) 0.29 (0-0.5) K/uL Baso # (Auto) 0.02 (0-0.2) K/uL Immature Gran # (Auto) 0.02 (0.00-0.02) K/uL RBC Morphology Sodium 132 L (136-145) mmol/L Potassium 3.6 (3.5-5.1) mmol/L Chloride 104 (98-107) mmol/L Carbon Dioxide 24 (21-32) mmol/L Anion Gap 4 (3-11) BUN 10 (6-23) mg/dl Creatinine 1.18 (0.6-1.2) mg/dl Est Cr Clr Drug Dosing 47.0 ml/min Est GFR ( Amer) 51.5 ml/min Est GFR (Non-Af Amer) 44.5 ml/min BUN/Creatinine Ratio 8.5 L (10-20) Glucose 74 (70-99(Fasting)) mg/dl Calcium 8.2 L (8.5-10.1) mg/dl C-Reactive Protein 23.04 H (0-0.5) mg/dl Procalcitonin 2.33 H (0-0.5) ng/ml Resident Activity Tracking Resident Involvement: Resident Care Provided Care Provided: Adult Hospital Medicine
[2021-08-20] MEDS: METOPROLOL TARTRATE 25 MG TAB PO SCH ×2 (08:45→20:53)
[2021-08-20] MEDS: PANTOprazole 40 MG TAB PO SCH (08:46)
[2021-08-20] MEDS: APIXABAN 5 MG TABLET PO SCH ×2 (08:46→20:53)
[2021-08-20] MEDS: NYSTATIN SUSP 500,000 U/5 ML UDC PO SCH ×5 (08:46→20:59)
[2021-08-20] MEDS: CHOLECALCIFEROL 1,000 UNITS 25 MCG TAB PO SCH (08:46)
[2021-08-20] MEDS: CETIRIZINE HCL 10 MG TABLET PO SCH (08:46)
[2021-08-20] MEDS: DOXYCYCLINE HYCLATE 100 MG in DEXTROSE 5% 100 ML IV SCH ×2 (11:32→23:04)
--- NOTE | 2021-08-20 16:44 | CT Scan Report ---
CT SCAN OF THE ABDOMEN AND PELVIS WITHOUT IV CONTRAST CLINICAL HISTORY: Unspecified infection. COMPARISON STUDY: Abdominal CT dated 07/11/2021. TECHNIQUE: CT scan of the abdomen and pelvis is performed from the lung bases to the proximal femora. Images are reviewed in the axial, sagittal, and coronal planes. IV contrast was not administered for this examination. Note that the examination is significantly suboptimal without oral and IV contrast . There is also motion artifact, and streak artifact from the arms which could not be elevated above the abdomen. A dose lowering technique was utilized adhering to the principles of ALARA. CT DOSE: 1637.00 mGy.cm FINDINGS: Lung bases: The heart is normal in size and without pericardial effusion. The coronary arteries are d ensely calcified. There are small pleural effusions with dependent consolidation. There is a moderate to large hiatal hernia. Liver: The unenhanced liver is normal in size, contour, and attenuation. There is no intrahepatic sharmila iary ductal dilatation. Gallbladder: Unremarkable. Spleen: Normal in size and attenuation. Pancreas: The unenhanced pancreas is mildly atrophic and grossly unremarkable. Adrenal glands: Unremarkable. Kidneys: The unenhanced kidneys demonstrate mild cortical atrophy and are without hydronephrosis. The re is a punctate nonobstructing left renal calculus. There is no evidence of contour deforming renal mass lesion. Abdominal vasculature: The abdominal aorta is normal in course and caliber. Bowel: There is mild to moderate sigmoid diverticulosis without CT evidence of acute diverticulitis. No bowel obstruction is identified. Residual enteric contrast is noted in the colon. The appendix is not identified and reported surgically absent. Peritoneum: There is no intraperitoneal free air or abdominal ascites. There is a fat-containing umbi lical hernia. Lymphadenopathy: None. Pelvic viscera: Layering hyperdense material within the bladder lumen may represent excreted contrast versus tiny calculi. The bladder is otherwise normal as visualized. The uterus is surgically absent. No adnexal lesion is seen. Surgical clips are noted in the left groin. Skeletal structures: The skeletal structures are osteopenic. There is moderate to advanced lumbosacra l spondylosis and scoliosis. No lytic or blastic lesions are seen. Soft tissues: Superficial and deep soft tissue tissue edema is noted in the upper thighs, right great er than left. No soft tissue gas is seen. IMPRESSION: 1. Significantly suboptimal examination without IV contrast. There is also streak and motion artifact . 2. No acute infectious or inflammatory findings are identified in the abdomen or pelvis. 3. Small pleural effusions with dependent consolidation. This likely represents atelectasis and clini inder correlation will be required. 4. Superficial and deep soft tissue edema is noted in the upper thighs, right greater than left. Clin ical correlation will be required. 5. Moderate to large hiatal hernia. 6. Additional findings as above. ACT 112: Negative or not required by law. Electronically signed by: Shawn Nunez M.D. 08/20/2021 4:42 PM
[2021-08-20] MEDS ORDERED: CHLORASEPTIC 1.4% SOLN 180 ML BTL MT PRN (18:05)
[2021-08-20] MEDS ORDERED: COUGH DROP (SUGAR FREE) LOZ 24 LOZ/1 BOX BUCCAL ONE (21:01)
[2021-08-20] MEDS: ACETAMINOPHEN 325 MG TAB PO PRN (21:15)
[2021-08-20] MEDS: MONTELUKAST SODIUM 10 MG TABLET PO SCH (21:15)
[2021-08-21 06:11] LABS: Basophils # (auto) 0.04 K/uL (0-0.2); Basophils % (auto) 1.1 %; Eosinophils # (auto) 0.39 K/uL (0-0.5); Eosinophils % (auto) 10.7 %; Hematocrit (blood only) 35.3 % (37-47); Hemoglobin 11.3 g/dL (12.0-16.0); Immature Granulocytes # (auto) 0.01 K/uL (0.00-0.02); Immature Granulocytes % (auto) 0.3 %; Lymphocytes # (auto) 1.28 K/uL (1.2-3.4); Lymphocytes % (auto) 35.3 %; Mean Corpuscular Hemoglobin 28.3 pg (25-34); Mean Corpuscular Volume 88.3 fL (80-100); Monocytes # (auto) 0.34 K/uL (0.11-0.59); Monocytes % (auto) 9.4 %; Neutrophils # (auto) 1.57 K/uL (1.4-6.5); Neutrophils % (auto) 43.2 %; Platelet Count 368 K/uL (130-400); RDW Coefficient of Variation 14.9 % (11.5-14.5); RDW Standard Deviation 48.5 fL (36.4-46.3); White Blood Count 3.63 K/uL (4.8-10.8)
[2021-08-21 06:37] LABS: C Reactive Protein 12.97 mg/dl (0-0.5); Calcium 8.5 mg/dl (8.5-10.1); Creatinine Clr Calc Pharmacy 64.5 ml/min; Est GFR (African American) 75.5 ml/min; Est GFR (Non-African American) 65.2 ml/min; Potassium 3.4 mmol/L (3.5-5.1)
[2021-08-21] MEDS: APIXABAN 5 MG TABLET PO SCH (08:39)
[2021-08-21] MEDS: METOPROLOL TARTRATE 25 MG TAB PO SCH (08:39)
[2021-08-21] MEDS: CHOLECALCIFEROL 1,000 UNITS 25 MCG TAB PO SCH (08:40)
[2021-08-21] MEDS: PANTOprazole 40 MG TAB PO SCH (08:41)
[2021-08-21] MEDS: CETIRIZINE HCL 10 MG TABLET PO SCH (08:41)
[2021-08-21] MEDS: NYSTATIN SUSP 500,000 U/5 ML UDC PO SCH ×2 (08:41→13:33)
[2021-08-21 11:56] LABS: Babesia microti DNA Not Detected (Not Detected)
[2021-08-21] MEDS: DOXYCYCLINE HYCLATE 100 MG in DEXTROSE 5% 100 ML IV SCH (13:39)
[2021-08-21] MEDS ORDERED: DOXYCYCLINE HYCLATE 100 MG CAP PO STA (13:50)
[2021-08-21] MEDS ORDERED: ONDANSETRON 4 MG OD TAB PO STA (15:27)
--- NOTE | 2021-08-21 15:58 | Discharge Summary ---
Date of Service August 21, 2021 Admission HPI Per Admitting Provider Ms. Newman is a 76-year-old female with past medical history of metastatic melanoma, hypertension, GERD, seasonal allergies who presents today from home with weakness. Per sister, patient lives alone but has many siblings and other family members who check on her frequently. She is at baseline independent and AAO x4, however over the past few days she has seemed more weak and last evening, patient went to the bathroom and when she tried to get up she could not, unfortunately sat there for several hours due to the severity of her general weakness. She also complains of a sore throat and feeling very dry, she states she has not been eating or drinking much because she has not had an appetite. Over the past few days, she has developed some vaginal/groin itching and states she thinks she may have a yeast infection. She otherwise denies fever/chills at home, body aches, night sweats, chest pain, palpitations, shortness of breath, cough, congestion, vomiting, abdominal pain, nausea, vomiting, diarrhea, constipation, dysuria, hematuria, increased urgency or frequency. In ED, she is tachycardic, initially normotensive with drop in BP 93/51, febrile at 100.7, but SPO2 >95% on RA. Labs significant for creatinine 1.89, increased from baseline several weeks ago at 0.96, magnesium 1.6, T bili 1.2, CK 973. UA with 10-20 epithelial cells, but with 1+ bacteria, trace leuk esterase, positive for nitrates, bilirubin. Calcium oxalate present. COVID-negative. CXR showed no acute active disease, heart mildly enlarged with no pulmonary congestion, without pleural effusion or pneumothorax. Head CT did not show hemorrhage, mass-effect, or evidence of acute territorial ischemia. Blood and urine cultures sent. Patient received 2 NSS x 2L, Tylenol, and Zosyn in ED, hospitalist service was then consulted for further evaluation and admission. Principal Diagnosis Weakness, infection of unknown source Discharge Exam General: awake, comfortable laying in bed HEENT: NCAT, EOMI, moist mucous membranes, hard of hearing (better on left), hoarse voice Chest: CTA, no respiratory distress or accessory muscle use Cardiac: RRR, no murmur, no JVD, normal peripheral pulses, good capillary refill Abdominal: soft, nontender to palpation, nondistended, no guarding Extremities: no acrocyanosis, no peripheral edema Psych: normal mood Neuro: AOx3, strength intact bilaterally, no peripheral sensory deficits Skin: erythema near skin fold left flank, improving Discharge Data Allergies Allergy/AdvReac Type Severity Reaction Status Date / Time tramadol Allergy Mild NASUEA/CONF Verified 01/15/21 08:49 USION cephalexin [From Keflex] AdvReac Mild upset Verified 01/15/21 08:49 stomach Consultations 08/15/21 18:30 ED Decision to Admit Stat Ordered Studies Laboratory Results WBC 3.63 K/uL (4.8-10.8) L 08/21/21 05:45 RBC 4.00 M/uL (4.2-5.4) L 08/21/21 05:45 Hgb 11.3 g/dL (12.0-16.0) L 08/21/21 05:45 Hct 35.3 % (37-47) L 08/21/21 05:45 MCV 88.3 fL (80-100) 08/21/21 05:45 MCH 28.3 pg (25-34) 08/21/21 05:45 MCHC 32.0 g/dL (32-36) 08/21/21 05:45 RDW Std Deviation 48.5 fL (36.4-46.3) H 08/21/21 05:45 RDW Coeff of Dominic 14.9 % (11.5-14.5) H 08/21/21 05:45 Plt Count 368 K/uL (130-400) 08/21/21 05:45 MPV 9.0 fL (7.4-10.4) 08/21/21 05:45 Immature Gran % (Auto) 0.3 % 08/21/21 05:45 Neut % (Auto) 43.2 % 08/21/21 05:45 Lymph % (Auto) 35.3 % 08/21/21 05:45 Taylor % (Auto) 9.4 % 08/21/21 05:45 Eos % (Auto) 10.7 % 08/21/21 05:45 Baso % (Auto) 1.1 % 08/21/21 05:45 Neut # (Auto) 1.57 K/uL (1.4-6.5) 08/21/21 05:45 Lymph # (Auto) 1.28 K/uL (1.2-3.4) 08/21/21 05:45 Taylor # (Auto) 0.34 K/uL (0.11-0.59) 08/21/21 05:45 Eos # (Auto) 0.39 K/uL (0-0.5) 08/21/21 05:45 Baso # (Auto) 0.04 K/uL (0-0.2) 08/21/21 05:45 Immature Gran # (Auto) 0.01 K/uL (0.00-0.02) 08/21/21 05:45 RBC Morphology Unremarkable 08/20/21 05:34 Peripher Smr Path Cons 08/20/21 05:34 PT 12.3 Seconds (9.0-12.0) H 08/15/21 12:47 INR 1.2 (0.9-1.1) H 08/15/21 12:47 APTT 36.7 Seconds (21.0-31.0) H 08/15/21 12:47 PTT Ratio 1.3 08/15/21 12:47 Sodium 137 mmol/L (136-145) 08/21/21 05:45 Potassium 3.4 mmol/L (3.5-5.1) L 08/21/21 05:45 Chloride 108 mmol/L (98-107) H 08/21/21 05:45 Carbon Dioxide 23 mmol/L (21-32) 08/21/21 05:45 Anion Gap 6 (3-11) 08/21/21 05:45 BUN 6 mg/dl (6-23) 08/21/21 05:45 Creatinine 0.86 mg/dl (0.6-1.2) 08/21/21 05:45 Est Cr Clr Drug Dosing 64.5 ml/min 08/21/21 05:45 Est GFR ( Amer) 75.5 ml/min 08/21/21 05:45 Est GFR (Non-Af Amer) 65.2 ml/min 08/21/21 05:45 BUN/Creatinine Ratio 7.0 (10-20) L 08/21/21 05:45 Glucose 73 mg/dl (70-99(Fasting)) 08/21/21 05:45 Lactate 1.6 mmol/L (0.4-2.0) 08/15/21 12:47 Calcium 8.5 mg/dl (8.5-10.1) 08/21/21 05:45 Magnesium 1.9 mg/dl (1.7-2.4) 08/16/21 07:49 Total Bilirubin 0.9 mg/dl (0.2-1.0) 08/18/21 08:18 AST 27 U/L (13-39) 08/18/21 08:18 ALT 17 U/L (7-52) 08/18/21 08:18 Alkaline Phosphatase 69 U/L (34-104) 08/18/21 08:18 Total Creatine Kinase 637 U/L (26-192) H 08/17/21 05:29 Troponin I High Sens 9.8 pg/ml (0-14) 08/15/21 12:47 C-Reactive Protein 12.97 mg/dl (0-0.5) H 08/21/21 05:45 Total Protein 5.8 gm/dl (6.0-8.3) L 08/18/21 08:18 Albumin 2.5 gm/dl (3.4-5.0) L 08/18/21 08:18 Globulin 3.3 gm/dl (2.5-4.0) 08/18/21 08:18 Albumin/Globulin Ratio 0.8 (0.9-2) L 08/18/21 08:18 Procalcitonin 0.62 ng/ml (0-0.5) H 08/21/21 05:45 TSH 2.307 uIu/ml (0.300-4.500) 08/15/21 12:47 Urine Color Jenni 08/15/21 17:08 Urine Appearance Clear (Clear) 08/15/21 17:08 Urine pH 5.0 (4.5-7.5) 08/15/21 17:08 Ur Specific Selden 1.033 (1.000-1.030) H 08/15/21 17:08 Urine Protein 1+ (Negative) H 08/15/21 17:08 Urine Glucose (UA) Negative (Negative) 08/15/21 17:08 Urine Ketones Trace (Negative) H 08/15/21 17:08 Urine Blood Negative (Negative) 08/15/21 17:08 Urine Nitrite Positive (Negative) A 08/15/21 17:08 Urine Bilirubin 2+ (Negative) H 08/15/21 17:08 Urine Urobilinogen Negative (Negative) 08/15/21 17:08 Ur Leukocyte Esterase Trace (Negative) H 08/15/21 17:08 Urine WBC (Auto) 1-5 /hpf (0-5) 08/15/21 17:08 Urine RBC (Auto) 0-4 /hpf (0-4) 08/15/21 17:08 U Hyaline Cast (Auto) 1-5 /lpf (0-5) 08/15/21 17:08 U Epithel Cells (Auto) 10-20 /lpf (0-5) H 08/15/21 17:08 Urine Bacteria (Auto) 1+ (Negative) H 08/15/21 17:08 Calcium Oxalate Crystal Present (None Prsent) A 08/15/21 17:08 Urine Mucus Present (None Prsent) A 08/15/21 17:08 Nasal Screen MRSA (PCR) Negative (Negative) 08/15/21 20:16 Stl C. diff Tox B Gene Negative Cdiff Gene (Neg) 08/20/21 09:57 Random Vancomycin 17.6 mcg/ml (10-20) 08/16/21 07:49 Anaplasma Smear See Comment 08/18/21 08:18 Babesia Smear See Comment 08/18/21 08:18 Babesia microti DNA PCR Not Detected (Not Detected) 08/17/21 05:25 Lyme Disease IgG Ab Negative (Negative) 08/18/21 08:18 Lyme Disease IgM Ab Negative (Negative) 08/18/21 08:18 SARS-CoV-2 (PCR) NEGATIVE (Negative) 08/15/21 20:16 Influenza Type A (PCR) Negative (Neg) 08/15/21 20:16 Influenza Type B (PCR) Negative (Neg) 08/15/21 20:16 RSV (RT-PCR) Negative (Neg) 08/15/21 20:16 SARS-CoV-2, RNA, NAAT NEGATIVE (NEGATIVE) 08/21/21 10:18 Impressions Chest X-Ray 08/15/21 12:32 SINGLE VIEW CHEST CLINICAL HISTORY: Generalized weakness. FINDINGS: An AP, portable, upright chest radiograph is compared to study dated 01/15/2021 and correlated with chest CT dated 07/11/2021. A right internal jugular central venous infusion port is unchanged in position. The heart is mildly enlarged noting atherosclerotic calcification of the thoracic aorta. The pulmonary vasculature is noncongested. A large hiatal hernia is noted. Scarring/atelectasis is seen at the lung bases. The lungs and pleural spaces are otherwise clear. No pneumothorax is seen. The skeletal structures are osteopenic. The bony thorax is grossly intact. Degenerative change is noted in the shoulders and thoracic spine. IMPRESSION: 1. No active disease in the chest. 2. Large hiatal hernia. ACT 112: Negative or not required by law. Electronically signed by: Shawn Nunez M.D. 08/15/2021 2:[address] 08/15/21 12:34 CT SCAN OF THE BRAIN WITHOUT IV CONTRAST CLINICAL HISTORY: Generalized weakness. COMPARISON STUDY: CT of the brain dated 08/06/2021. TECHNIQUE: Unenhanced axial CT scan of the brain is performed from the vertex to the skull base. A dose lowering technique was utilized adhering to the principles of ALARA. 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 There are age-related involutional changes noting mild to moderate subcortical and periventricular microangiopathic change. There is no hemorrhage, mass effect, or evidence of acute territorial ischemia by CT criteria. Higginbotham- white matter differentiation is preserved. No extra-axial fluid collection is seen. Ventricles, sulci, cisterns: Prominent secondary to involutional change. Intracranial vasculature: There is atherosclerotic calcification of the cavernous carotid and vertebral arteries. Calvarium: Unremarkable. Sinuses and mastoids: The visualized paranasal sinuses are clear. The mastoid air cells are well pneumatized. Orbits: The bony orbits are grossly intact. There are bilateral ocular lens implants. IMPRESSION: There is no hemorrhage, mass effect, or evidence of acute territorial ischemia by CT criteria. No change from 08/06/2021. ACT 112: Negative or not required by law. Electronically signed by: Shawn Nunez M.D. 08/15/2021 1:[address] 08/17/21 12:26 CT SCAN OF THE CHEST WITHOUT IV CONTRAST CLINICAL HISTORY: Generalized weakness. Clinical concern for pneumonia. COMPARISON STUDY: Chest x-ray dated 08/15/2021. Chest CT scans dated 07/11/2021 and 02/08/2019. TECHNIQUE: CT scan of the thorax was performed from the thoracic inlet to the upper abdomen. Images are reviewed in the axial, sagittal, and coronal planes. IV contrast was not administered for this examination as per the referring clinician. A dose lowering technique was utilized adhering to the principles of ALARA. CT DOSE: 505.09 mGy.cm FINDINGS: Thyroid: Imaged portions of the thyroid gland are normal in size and attenuation. Thoracic aorta: There is mild atherosclerotic calcification of the thoracic aorta, which is normal in caliber and demonstrates standard 3-vessel arch anatomy. Heart: A right internal jugular central venous infusion port is in place. The heart is mildly enlarged and without pericardial effusion. The coronary arteries are densely calcified. Lungs and pleural spaces: Evaluation of the lung parenchyma is significantly degraded by motion artifact. There are small pleural effusions with bibasilar scarring/atelectasis. No airspace consolidation is seen typical for pneumonia. The trachea and central airways appear clear. There are scattered calcified granulomas. Mediastinum: There is no mediastinal lymphadenopathy. Mildred: Not well assessed without IV contrast. Axillae: There is no axillary lymphadenopathy. Upper abdomen: There is a large hiatal hernia. The majority of the stomach is located in the thorax. Partially visualized upper abdominal viscera is within normal limits. Skeletal structures: The skeletal structures are osteopenic. Degenerative change and hyperkyphosis are noted in the thoracic spine. Arthritic change is seen in the shoulders. No lytic or blastic bony lesions are seen. IMPRESSION: 1. Mild cardiomegaly and small pleural effusions. Effusions are new from 07/11/2021. 2. No airspace consolidation is seen typical for pneumonia. 3. Large hiatal hernia. 4. Additional findings as above. ACT 112: Negative or not required by law. Electronically signed by: Shawn Nunez M.D. 08/17/2021 2:40 PM Videofluoroscopic Swallow 08/19/21 11:30 VIDEO SWALLOW STUDY CLINICAL HISTORY: Aspiration. COMPARISON STUDY: No priors. Fluoroscopy time: 3.0 minutes. FINDINGS: Fluoroscopic guidance is provided to the Department of Speech Pathology in performing a video swallow study. The patient consumed barium-imp regnated pudding, cracker with paste, and thin barium while the swallowing mechanism was observed in real-time. A central venous infusion port is noted. Silent aspiration was seen with thin barium. No aspiration was seen with the remaining sampled textures. Esophageal dysmotility was observed. There is a large hiatal hernia. IMPRESSION: 1. Silent aspiration was seen with thin barium. 2. No aspiration was seen with the remaining sampled textures. 3. Hiatal hernia and esophageal dysmotility. 4. See dedicated speech pathology report for detailed findings and recommendations. Dictated: 08/19/2021 12:37 PM Transcribed: 08/19/2021 1:01 PM [place] [id number] [facility] Electronically signed by: Shawn Nunez M.D. 08/19/2021 1:38 PM Abdomen/Pelvis CT 08/20/21 15:29 CT SCAN OF THE ABDOMEN AND PELVIS WITHOUT IV CONTRAST CLINICAL HISTORY: Unspecified infection. COMPARISON STUDY: Abdominal CT dated 07/11/2021. TECHNIQUE: CT scan of the abdomen and pelvis is performed from the lung bases to the proximal femora. Images are reviewed in the axial, sagittal, and coronal planes. IV contrast was not administered for this examination. Note that the examination is significantly suboptimal without oral and IV contrast. There is also motion artifact, and streak artifact from the arms which could not be elevated above the abdomen. A dose lowering technique was utilized adhering to the principles of ALARA. CT DOSE: 1637.00 mGy.cm FINDINGS: Lung bases: The heart is normal in size and without pericardial effusion. The coronary arteries are densely calcified. There are small pleural effusions with dependent consolidation. There is a moderate to large hiatal hernia. Liver: The unenhanced liver is normal in size, contour, and attenuation. There is no intrahepatic biliary ductal dilatation. Gallbladder: Unremarkable. Spleen: Normal in size and attenuation. Pancreas: The unenhanced pancreas is mildly atrophic and grossly unremarkable. Adrenal glands: Unremarkable. Kidneys: The unenhanced kidneys demonstrate mild cortical atrophy and are without hydronephrosis. There is a punctate nonobstructing left renal calculus. There is no evidence of contour deforming renal mass lesion. Abdominal vasculature: The abdominal aorta is normal in course and caliber. Bowel: There is mild to moderate sigmoid diverticulosis without CT evidence of acute diverticulitis. No bowel obstruction is identified. Residual enteric contrast is noted in the colon. The appendix is not identified and reported surgically absent. Peritoneum: There is no intraperitoneal free air or abdominal ascites. There is a fat-containing umbilical hernia. Lymphadenopathy: None. Pelvic viscera: Layering hyperdense material within the bladder lumen may represent excreted contrast versus tiny calculi. The bladder is otherwise normal as visualized. The uterus is surgically absent. No adnexal lesion is seen. Surgical clips are noted in the left groin. Skeletal structures: The skeletal structures are osteopenic. There is moderate to advanced lumbosacral spondylosis and scoliosis. No lytic or blastic lesions are seen. Soft tissues: Superficial and deep soft tissue tissue edema is noted in the upper thighs, right greater than left. No soft tissue gas is seen. IMPRESSION: 1. Significantly suboptimal examination without IV contrast. There is also streak and motion artifact. 2. No acute infectious or inflammatory findings are identified in the abdomen or pelvis. 3. Small pleural effusions with dependent consolidation. This likely represents atelectasis and clinical correlation will be required. 4. Superficial and deep soft tissue edema is noted in the upper thighs, right greater than left. Clinical correlation will be required. 5. Moderate to large hiatal hernia. 6. Additional findings as above. ACT 112: Negative or not required by law. Electronically signed by: Shawn Nunez M.D. 08/20/2021 4:42 PM Hospital Course (1) SIRS (systemic inflammatory response syndrome): 76 yo female with PMHx metastatic melanoma, h/o VTE on eliquis, hypertension, and GERD who presented with weakness. #SIRS (systemic inflammatory response syndrome) Sepsis, POA due to suspected unidentified bacterial infection - Tachycardic, febrile in ED. Confused on admission, not her baseline at home but now resolved. - No leukocytosis. Lactate 1.6 - COVID/flu/RSV negative. MRSA swab neg. - Blood and urine cx negative - Fungal blood cx pending - Chest XR (08/15): no active disease - Chest CT (08/17): small pleural effusions, no signs of pneumonia - CT abd/pel (08/20): no infectious or inflammatory findings - CRP 13, procal 0.6; improving - low likelihood of MRSA, d/c'd vanc (08/17) - d/c'd zosyn morning of 08/20; afebrile since - tickborne illness panel thus far negative; continue doxycycline as empiric treatment for total 14 days (last day 09/01/21), can change tablet to oral suspension if difficulty swallowing pill - fungal culture pending on discharge - Tylenol for fever as needed. - obtain cbc, crp, procal in 1 week for resolution, f/u with pcp - suspect recurrent aspiration as possible etiology. consider palliative care discussion at the facility. #Weakness - Generalized, no focal weakness/numbness/tingling. - Suspect is due to decreased infection, p.o. intake, FTT - Continue to monitor for improvement in response to antibiotics. - Cont. PT/OT at acute rehab #SHAMEKA (acute kidney injury)resolved - on admission Cr 1.89, baseline 0.96 on labs on 07/25. Prerenal. Now wnl. - Avoid nephrotoxic agents, renally dose medications as able #Metabolic Encephalopathy, treated and resolved - On admission having trouble answering questions appropriately, was derailing conversation with irrelevant questions initially, and hard to interview. Mental status progressively improved throughout admission. - Suspect this transient alteration in her baseline mentation status is in the setting of infection, hypotension, does not seem to be an ongoing issue.Continue to monitor. #Acute hypotension, resolved - In setting of infection, decreased p.o. intake. MAP >65. Was responsive to IVF. Not requiring vasopressors at this time. #Hypomagnesemia, resolved - mag 1.9, stable #Rhabdomyolysisresolved - CK 973 on admission - CK peaked 1200 (08/16) - Likely due to prolonged ambulatory dysfunction prior to admission. No falls. #Thrush, oral - cont. nystatin mouthwash 4 times daily for 1 more week. - Chloraseptic spray for mouth pain #Silent aspiration with Chronic laryngitis - Patient complains of hoarseness, this was noted on PCP note from June, this has been an issue apparently for years and she had seen an ENT who told her she had a collapsed vocal cord, has seen speech for this.May be partially due to thrush. - Appreciate speech consult: no aspiration risk, +esophageal dysmotility 2/2 h/o gerd, hiatal hernia, nonobstructive mucosal ring - Recommend outpatient GI follow up - Scheduled outpatient ENT appt on 09/02 #Hypertension - cont. metoprolol, amlodipine if BP allows #Metastatic Melanoma - Right sided IJ port in place without surrounding erythema, edema, ecchymosis, or tenderness with palpation. - Receives immunotherapy infusions. Spoke with heme/onc, last infusion on 07/28 which should not increase risk of infection. - CT abd/pelvis (07/11): no evidence of recurrent or metastatic disease - CT chest (07/11): no evidence of metastatic disease - f/u heme/onc outpatient #GERD -continue home PPI #History of VTE -cont. Eliquis 5 mg BID #Itchy rash skin fold, left flank -possible developing intertrigo -cont. triamcinolone prn (2) Weakness: (3) SHAMEKA (acute kidney injury): (4) Encephalopathy: (5) Rhabdomyolysis: (6) Hypomagnesemia: (7) Thrush, oral: (8) Chronic laryngitis: (9) Melanoma: (10) Hypertension: (11) GERD (gastroesophageal reflux disease): (12) History of venous thromboembolism: Total Time Total Time Spent Total Time Spent (In Minutes): 45 Discharge Plan Discharge Items Patient Disposition: Transfer Inpatient Rehab Fac Reason For Visit: WEAKNESS Discharge Diagnosis: Weakness, infection of unknown source Activity: Per Instructions section Non-emergency contact: Primary Care Provider and Oncologist Call non-emergency contact if: you have any medication questions, your symptoms worsen and your pain is concerning for you Follow-up/Referrals: John Lee MD [Physician] - (hiatal hernia, difficult swallowing) Mirtha Venegas MD [Primary Care Provider] - Ro Herrera MD [Physician] - (h/o metastatic melanoma on immunotherapy) Diet: Heart Healthy Diet Texture: Easy to Chew Addtl Attending Provider Instructions: 76 yo female with PMHx metastatic melanoma, h/o VTE on eliquis, hypertension, and GERD who presented with weakness. #SIRS (systemic inflammatory response syndrome) Sepsis, POA due to suspected unidentified bacterial infection - Tachycardic, febrile in ED. Confused on admission, not her baseline at home but now resolved. - No leukocytosis. Lactate 1.6 - COVID/flu/RSV negative. MRSA swab neg. - Blood and urine cx negative - Fungal blood cx pending - Chest XR (08/15): no active disease - Chest CT (08/17): small pleural effusions, no signs of pneumonia - CT abd/pel (08/20): no infectious or inflammatory findings - CRP 13, procal 0.6; improving - low likelihood of MRSA, d/c'd vanc (08/17) - d/c'd zosyn morning of 08/20; afebrile since - tickborne illness panel thus far negative; continue doxycycline as empiric treatment for total 14 days (last day 09/01/21), can change tablet to oral suspension if difficulty swallowing pill - check fungal culture - Tylenol for fever as needed. - obtain cbc, crp, procal in 1 week for resolution, f/u with pcp #Weakness - Generalized, no focal weakness/numbness/tingling. - Suspect is due to decreased infection, p.o. intake, FTT - PT/OT - Continue to monitor for improvement in response to antibiotics. #SHAMEKA (acute kidney injury)resolved - on admission Cr 1.89, baseline 0.96 on labs on 07/25. Prerenal. Now wnl. - Avoid nephrotoxic agents, renally dose medications as able #Metabolic Encephalopathy, treated and resolved - On admission having trouble answering questions appropriately, was derailing conversation with irrelevant questions initially, and hard to interview. Mental status progressively improved throughout admission. - Suspect this transient alteration in her baseline mentation status is in the setting of infection, hypotension, does not seem to be an ongoing issue.Continue to monitor. #Acute hypotension, resolved - In setting of infection, decreased p.o. intake. MAP >65. Was responsive to IVF. Not requiring vasopressors at this time. #Hypomagnesemia, resolved - mag 1.9, stable #Rhabdomyolysisresolved - CK 973 on admission - CK peaked 1200 (08/16) - Likely due to prolonged ambulatory dysfunction prior to admission. No falls. #Thrush, oral - cont. nystatin mouthwash 4 times daily for 1 more week. - Chloraseptic spray for mouth pain #Chronic laryngitis - Patient complains of hoarseness, this was noted on PCP note from June, this has been an issue apparently for years and she had seen an ENT who told her she had a collapsed vocal cord, has seen speech for this.May be partially due to thrush. - Appreciate speech consult: no aspiration risk, +esophageal dysmotility 2/2 h/o gerd, hiatal hernia, nonobstructive mucosal ring - Recommend outpatient GI follow up - Scheduled outpatient ENT appt on 09/02 #Hypertension - cont. metoprolol, amlodipine if BP allows #Metastatic Melanoma - Right sided IJ port in place without surrounding erythema, edema, ecchymosis, or tenderness with palpation. - Receives immunotherapy infusions. Spoke with heme/onc, last infusion on 07/28 which should not increase risk of infection. - CT abd/pelvis (07/11): no evidence of recurrent or metastatic disease - CT chest (07/11): no evidence of metastatic disease #GERD -continue home PPI #History of VTE -cont. Eliquis 5 mg BID #Itchy rash skin fold, left flank -possible developing intertrigo -cont. triamcinolone prn Pending Studies at Discharge: Yes (fungal culture) Stand-Alone Forms: [facility] Skilled Items Patient informed of condition?: Yes DNR: No Discharge Level of Care: Acute rehab Communicable Disease: No Discharge Prognosis: Stable Lines: None Urinary Catheter: No Medications and DC Order Prescriptions: New nystatin 100,000 unit/mL Suspension 5 ml PO QID Qty: 140 RF: 0 triamcinolone acetonide 0.1 % Cream 1 applic EXT QID PRN (Reason: intertrigo left flank) Qty: 1 RF: 0 doxycycline hyclate 100 mg capsule 100 mg PO BID Qty: 23 RF: 0 Continued diphenhydramine HCl [Benadryl] 25 mg capsule 25 mg PO HS PRN (Reason: Sleep) RF: 0 metoprolol tartrate 25 mg tablet 12.5 mg PO BID RF: 0 amlodipine [Norvasc] 5 mg Tablet 5 mg PO QAM RF: 0 omeprazole 20 mg Tablet,Delayed Release (Dr/Ec) 20 mg PO QAM RF: 0 multivitamin Tablet 1 tab PO QAM RF: 0 cholecalciferol (vitamin D3) [Vitamin D3] 25 mcg (1,000 unit) Tablet 25 mcg PO QAM RF: 0 cetirizine [Zyrtec] 10 mg Tablet 10 mg PO QAM RF: 0 montelukast 10 mg tablet 10 mg PO DAILY RF: 0 esomeprazole magnesium 20 mg capsule,delayed release(DR/EC) 20 mg PO DAILY RF: 0 Eliquis 5 mg tablet 5 mg PO DAILY RF: 0 Discharge Orders: Discharge Order (Routine); Ordered 08/21/21 Ordered By: Memo Anderson Admission Data Admit Date/Time: 08/15/21 20:08 Attending Provider: Padma Schmitz Admit Provider: Gill Garcia Primary Care Provider: Mirtha Venegas Other Providers: Prashant Zacarias ; [place] ; Gill Garcia Other Interventions: Discharge Summary Assessment (RN) Last Done: 08/21/21 16:05 Supervising Physician Co-Signing Physician Notes Resident Physician Supervision Note: I independently interviewed and examined the patient and verified the yousif history and physical, reviewed labs and image studies and agree with resident Dr. Becky Anderson findings and care plan. Resident Activity Tracking Resident Involvement: Resident Care Provided Care Provided: Adult Hospital Medicine
== END 2021-08-21 16:50 | DRG 871 ==
LOC: ED 12:06 → SUATTDRO 20:08 → 2S 20:08 → 3N 08-18 15:58
DX: N17.9 Acute kidney failure, unspecified; K21.9 Gastro-esophageal reflux disease without esophagitis; G93.41 Metabolic encephalopathy; E83.42 Hypomagnesemia; Z79.01 Long term (current) use of anticoagulants; A41.9 Sepsis, unspecified organism; M62.82 Rhabdomyolysis; C43.9 Malignant melanoma of skin, unspecified; N18.30 Chronic kidney disease, stage 3 unspecified; Z86.718 Personal history of other venous thrombosis and embolism; A49.9 Bacterial infection, unspecified; Z96.653 Presence of artificial knee joint, bilateral; B37.0 Candidal stomatitis; Z87.891 Personal history of nicotine dependence; Z86.711 Personal history of pulmonary embolism

== ENCOUNTER 2021-08-25 06:53 | Inpatient (IN) ==
[2021-08-25] MEDS ORDERED: PIPERACILL/TAZOBAC CONSULT ACTIVE PRN ×2 (07:08→12:00)
[2021-08-25] MEDS ORDERED: PIPERACILLIN/TAZOBACTAM 4.5 GM/120 ML BAG IV ONE (07:08)
[2021-08-25] MEDS ORDERED: SODIUM CHLORIDE 0.9% 1000ML 2,000 ML IV ONE (07:09)
[2021-08-25] MEDS ORDERED: NYSTATIN POWDER 15GM BTL EXT PRN (07:09)
[2021-08-25] MEDS ORDERED: ACETAMINOPHEN 1,000 MG/100 ML VIAL IV STA (07:12)
[2021-08-25 07:35] LABS: Basophils # (auto) 0.03 K/uL (0-0.2); Basophils % (auto) 0.3 %; Eosinophils # (auto) 0.25 K/uL (0-0.5); Eosinophils % (auto) 2.1 %; Hematocrit (blood only) 37.9 % (37-47); Hemoglobin 11.9 g/dL (12.0-16.0); Immature Granulocytes # (auto) 0.06 K/uL (0.00-0.02); Immature Granulocytes % (auto) 0.5 %; Lymphocytes # (auto) 2.03 K/uL (1.2-3.4); Lymphocytes % (auto) 17.1 %; Mean Corpuscular Hemoglobin 28.3 pg (25-34); Mean Corpuscular Hgb Conc 31.4 g/dL (32-36); Mean Platelet Volume 9.6 fL (7.4-10.4); Monocytes # (auto) 1.49 K/uL (0.11-0.59); Monocytes % (auto) 12.5 %; Neutrophils # (auto) 8.04 K/uL (1.4-6.5); Neutrophils % (auto) 67.5 %; Platelet Count 520 K/uL (130-400); RDW Coefficient of Variation 15.5 % (11.5-14.5); RDW Standard Deviation 51.1 fL (36.4-46.3); Red Blood Count 4.21 M/uL (4.2-5.4)
--- NOTE | 2021-08-25 07:37 | Emergency Department Note ---
Impression & Plan Acute UTI, SHAMEKA (acute kidney injury), Hypomagnesemia, Sepsis, Hypoxia ED Provider Note Provider: Fuad Parks MD DATE OF SERVICE: 08/25/2021 CHIEF COMPLAINT: Confusion, tachycardia, fever HISTORY OF PRESENT ILLNESS: Patient is a 76-year-old female with a history of metastatic melanoma, hypertension, GERD, and recent hospitalization here with infection as well as encephalopathy presenting today via ambulance from [facility] where she is been undergoing rehab. EMS report the patient evidently per the staff there has been a bit confused since her arrival but was more altered this morning and had a fever and persistently elevated heart rate. Patient herself is limited in the history she can provide and only complains of pain everywhere. When asked additional questioning is unable provide details and is unable to tell me her birthday or what is going on. Available records from the facility do not indicate she received any Tylenol today. EMS did give her 250 cc of IV fluid prior to arrival and she is been tachycardic for them. Review of records indicate the patient did receive Eliquis last evening but I do not see morning meds tried for this morning. Patient does withdraw all extremities to pain and intermittently spontaneously. No reported baseline oxygen use but the facility reports today she is also requiring increased supplemental oxygen. REVIEW OF SYSTEMS: Limited secondary to her mental status PAST MEDICAL HISTORY: As noted above MEDICATIONS: Reviewed medication list from the facility. SOCIAL HISTORY: Currently resides a group home facility. PHYSICAL EXAM: GENERAL: alert fatigued appearing occasionally moving all extremities but unable to tell me where she is or what is occurring. Head: normocephalic and atraumatic EYES: No injection, discharge or icterus. PERRL NECK: Trachea midline. Supple. ENT: Mucous membranes pink and slightly dry LUNGS: Airway patent. No retractions. Breath sounds clear anteriorly but tachypneic HEART: Regular tachycardic rate and rhythm. No chest wall tenderness of the right upper chest port noted. ABDOMEN: Soft no significant tenderness or guarding noted on exam. No peritonitis appreciated. SKIN: Acyanotic, warm, dry with a bilateral erythematous rash in the inguinal region Nikolsky negative without active bleeding. EXTREMITIES: Without significant tenderness or obvious deformity blood in approximately 2 x 6 cm slight skin tear of the left posterior mid thigh without significant surrounding erythema noted. NEUROLOGICAL: No facial droop or slurred speech. Spontaneously moving all extremities at times withdraws to pain in all 4 extremities. EK bpm sinus tachycardia with PVC. No acute ST segment elevation or depression noted with a left axis. QTC 465. CONTINUOUS CARDIAC MONITORING: was ordered and showed a heart rate of 80s-120s bpm in normal sinus rhythm to sinus tachycardia Patient's laboratory studies and imaging reviewed. Differential includes Infection, dehydration, metabolic abnormality, hypo/hyperglycemia, electrolyte disturbance, anemia, hypoxia, cardiac sources, intracerebral event, toxicologic, neurologic, as well as other pathologies. IMPRESSION/MEDICAL DECISION MAKING: Patient presents with a fever, tachycardic, with a new oxygen requirement. Recent hospitalization and records reviewed treating for an infection of unclear etiology from the discharge summary. There is some question of possible aspiration and the patient has been on doxycycline per records. Patient did appear to be receiving Eliquis until yesterday evening but did not receive morning meds. Given some Tylenol here and ordered IV fluid hydration. CT the head was ordered given her confusion as well as CT through the chest and abdomen pelvis given the unclear source initially and difficulty getting a good history from the patient. Urinalysis was questionable for infection empirically given Zosyn. Blood cultures and lactate sent. Patient does not seem to be having that focal neurological deficits and lower suspicion at this time for stroke. Question of this could be urinary in source versus pulmonary given the increased oxygen requirement. Given her usage of anticoagulants lower suspicion for PE at this time. Blood work with leukocytosis today again concerning for infection. Urinalysis concerning for infection from catheterized specimen. Some inguinal rash noted consistent with a fungal candidiasis and nystatin powder was ordered for this area. Again covered empirically with Zosyn given concerns for sepsis as well as recent hospitalization and currently residing at a group home facility covered with vancomycin as well. Blood work without severe electrolyte abnormality beyond a low magnesium of 1.4. Creatinine is elevated today 1.48 on baseline. Ammonia not elevated. No transaminitis noted. No lipase elevation. High sensitivity troponin slightly elevated at 18 and question demand component given concerns for sepsis. Lactate not elevated. He did have per radiology without acute findings. CT of the chest per radiology with small pleural effusions in the past consolidation with some nonspecific mediastinal lymph nodes and large hiatal hernia. Patient's heart rate is improving and we are weaning some of oxygen. Question urinary infection causing sepsis versus some component of pneumonia as well. Likely encephalopathic from the infection. Again treated broadly with Zosyn and vancomycin and ordered 3.25 L of IV fluid to exceed 30 mL/kg sepsis goal. Discussed with the hospitalist and the patient be admitted. 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 No chemo or XRT GERD (gastroesophageal reflux disease) Hearing deficit Hiatal hernia Hx of pulmonary embolus 2019 s/p foot surgery, was on Eliquis for a few months. Hypertension Kidney disease Stage III- does not follow with superintendent track Left leg DVT post op after foot surgery Melanoma Metastatic malignant melanoma dx'ed 10/29/20 Will require immunotherapy infusions- reason for port Obesity Seasonal allergies SOB (shortness of breath) on exertion Unilateral vocal cord paralysis sees KIMBERLY [facility] Surgical History H/O excision of mass History of ankle surgery RECONSTRUCTION OF LEFT ANKLE History of biopsy History of cataract surgery History of colonoscopy History of esophagogastroduodenoscopy (EGD) History of laryngoscopy Hx of bladder repair surgery Hx of foot surgery reconstructive right foot surgery (2018) Hx of hysterectomy Hx of total knee replacement RIGHT AND LEFT Hx of tubal ligation PONV (postoperative nausea and vomiting) Family History Mother Hearing loss Cancer Sister Hearing loss Cancer Other Breast cancer Family history non-contributory No family history of adverse response to anesthesia No family history of bleeding disorder Social History Smoking Status: Never smoker Second Hand Exposure: No; Do You Dip or Chew Tobacco: No; Tobacco Cessation Education Requested by Patient: No Hx Alcohol Use: No Hx Substance Use: No Preferred Language: Serbian Communication Ability: Impaired Communication Ability Comment: unable to effectively answer questions Litigation Assistant Required: No Beliefs That Will Affect Care: None marital status: Current Living Situation: Assisted How many Children do You have: 2 Other Information That Helps Us Care for You: No Feels Safe at Home: Yes during the past year weight has: increased > 10 lbs Assistive Devices: Cane, Denture - Upper, Denture - Lower and Walker Assistive Devices Comment: Sister took home, hearing aid and dentures, no other devices present Allergies Allergies Allergy/AdvReac Type Severity Reaction Status Date / Time tramadol Allergy Mild NASUEA/CONF Verified 01/15/21 08:49 USION cephalexin [From Keflex] AdvReac Mild upset Verified 01/15/21 08:49 stomach Home Meds Home Medications Medication Instructions Recorded Confirmed amlodipine 5 mg tablet (Norvasc) 5 mg PO QAM 12/05/18 08/15/21 omeprazole 20 mg tablet,delayed 20 mg PO QAM 12/05/18 08/15/21 release cholecalciferol (vitamin D3) 25 25 mcg PO QAM 12/11/19 08/15/21 mcg (1,000 unit) tablet (Vitamin D3) metoprolol tartrate 25 mg tablet 12.5 mg PO BID 03/26/20 08/15/21 diphenhydramine HCl 25 mg capsule 25 mg PO HS PRN cap 03/28/20 08/15/21 (Benadryl) multivitamin 1 tab PO QAM 04/25/20 08/15/21 cetirizine 10 mg tablet (Zyrtec) 10 mg PO QAM 01/14/21 08/15/21 apixaban 5 mg tablet (Eliquis) 5 mg PO DAILY 08/15/21 08/15/21 esomeprazole magnesium 20 mg 20 mg PO DAILY 08/15/21 08/15/21 capsule,delayed release montelukast 10 mg tablet 10 mg PO DAILY 08/15/21 08/15/21 Previous Rx's Medication Instructions Recorded doxycycline hyclate 100 mg capsule 100 mg PO BID #23 cap 08/21/21 nystatin 100,000 unit/mL oral 5 ml PO QID #140 ml 08/21/21 suspension triamcinolone acetonide 0.1 % 1 applic EXT QID PRN #1 g 08/21/21 topical cream Results & Data (ED) Vital Signs Vital Signs - 24 hr 08/25/21 07:00 08/25/21 07:05 08/25/21 07:14 Temperature 39.7 C H Temperature Source Rectal Pulse Rate 117 H 124 H 119 H Pulse Rate [Apical] 117 H Pulse Rate from SpO2 Sensor 123 H 118 H Respiratory Rate 20 31 H 33 H Respiratory Effort / Characteristics Non-Labored Spontaneous Respiratory Depth Normal Respiratory Pattern Regular Blood Pressure 97/61 L 113/69 Blood Pressure [Right Arm] 97/61 L Blood Pressure Mean 73 83 Blood Pressure Mean [Right Arm] 73 Pulse Oximetry 89 L 94 96 Oxygen Delivery Method Room Air Oxymask Oxymask Oxygen Flow Rate 7 7 Sepsis Recent Fever Within 48 Hours Yes Sepsis New/Unexplained Change in Mental Status Yes Sepsis Action Taken by Nursing Physician Notified 08/25/21 07:19 08/25/21 07:30 08/25/21 07:50 Temperature Temperature Source Pulse Rate 112 H 116 H 115 H Pulse Rate [Apical] Pulse Rate from SpO2 Sensor 116 H 112 H Respiratory Rate 30 H 32 H 26 H Respiratory Effort / Characteristics Respiratory Depth Respiratory Pattern Blood Pressure 113/61 101/57 L Blood Pressure [Right Arm] Blood Pressure Mean 78 71 Blood Pressure Mean [Right Arm] Pulse Oximetry 98 99 97 Oxygen Delivery Method Oxymask Oxymask Oxymask Oxygen Flow Rate 7 7 7 Sepsis Recent Fever Within 48 Hours Sepsis New/Unexplained Change in Mental Status Sepsis Action Taken by Nursing 08/25/21 08:19 08/25/21 08:22 08/25/21 08:23 Temperature Temperature Source Pulse Rate 108 H 108 H Pulse Rate [Apical] Pulse Rate from SpO2 Sensor 110 H 108 H 107 H Respiratory Rate 25 H 23 Respiratory Effort / Characteristics Respiratory Depth Respiratory Pattern Blood Pressure 86/48 L 85/50 L Blood Pressure [Right Arm] Blood Pressure Mean 60 61 Blood Pressure Mean [Right Arm] Pulse Oximetry 97 97 97 Oxygen Delivery Method Oxymask Oxymask Oxymask Oxygen Flow Rate 7 7 7 Sepsis Recent Fever Within 48 Hours Sepsis New/Unexplained Change in Mental Status Sepsis Action Taken by Nursing 08/25/21 08:27 08/25/21 08:30 08/25/21 09:00 Temperature 38.6 C H Temperature Source Rectal Pulse Rate 108 H 97 H Pulse Rate [Apical] Pulse Rate from SpO2 Sensor 106 H 94 H Respiratory Rate 26 H 25 H Respiratory Effort / Characteristics Respiratory Depth Respiratory Pattern Blood Pressure 93/53 L 95/58 L Blood Pressure [Right Arm] Blood Pressure Mean 66 70 Blood Pressure Mean [Right Arm] Pulse Oximetry 96 96 Oxygen Delivery Method Oxymask Oxymask Oxygen Flow Rate 7 7 Sepsis Recent Fever Within 48 Hours Sepsis New/Unexplained Change in Mental Status Sepsis Action Taken by Nursing 08/25/21 09:30 08/25/21 10:00 08/25/21 10:30 Temperature Temperature Source Pulse Rate 94 H 91 H 96 H Pulse Rate [Apical] Pulse Rate from SpO2 Sensor 92 H 92 H 88 Respiratory Rate 26 H 21 27 H Respiratory Effort / Characteristics Respiratory Depth Respiratory Pattern Blood Pressure 102/44 L 105/56 L 103/53 L Blood Pressure [Right Arm] Blood Pressure Mean 63 72 69 Blood Pressure Mean [Right Arm] Pulse Oximetry 96 96 96 Oxygen Delivery Method Oxymask Oxymask Oxymask Oxygen Flow Rate 7 6 6 Sepsis Recent Fever Within 48 Hours Sepsis New/Unexplained Change in Mental Status Sepsis Action Taken by Nursing Laboratory Data Result diagrams: 08/25/21 07:12 08/25/21 07:12 Lab Results 08/25/21 08/25/21 08/25/21 Range/Units 07:10 07:12 07:12 WBC (4.8-10.8) K/uL RBC (4.2-5.4) M/uL Hgb (12.0-16.0) g/dL Hct (37-47) % MCV (80-100) fL MCH (25-34) pg MCHC (32-36) g/dL RDW Std Deviation (36.4-46.3) fL RDW Coeff of Dominic (11.5-14.5) % Plt Count (130-400) K/uL MPV (7.4-10.4) fL Immature Gran % (Auto) % Neut % (Auto) % Lymph % (Auto) % Barber % (Auto) % Eos % (Auto) % Baso % (Auto) % Neut # (Auto) (1.4-6.5) K/uL Lymph # (Auto) (1.2-3.4) K/uL Barber # (Auto) (0.11-0.59) K/uL Eos # (Auto) (0-0.5) K/uL Baso # (Auto) (0-0.2) K/uL Immature Gran # (Auto) (0.00-0.02) K/uL PT 16.6 H (9.0-12.0) Seconds INR 1.6 H (0.9-1.1) ABG pH (7.35-7.45) ABG pCO2 (35-46) mmHg ABG pO2 (80-95) mmHg ABG HCO3 (19-24) mmol/L ABG O2 Saturation (90-95) % ABG Base Excess (-9-1.8) mEq/L Darshan Test (Pos) VBG pH (7.36-7.41) VBG pCO2 (38-50) mmHg VBG pO2 mmHg VBG HCO3 mmol/L VBG O2 Saturation % VBG Base Excess mEq/L Barometric Pressure mm/Hg Oxygen Given Sodium 138 (136-145) mmol/L Potassium 3.8 (3.5-5.1) mmol/L Chloride 106 (98-107) mmol/L Carbon Dioxide 23 (21-32) mmol/L Anion Gap 9 (3-11) BUN 18 (6-23) mg/dl Creatinine 1.48 H (0.6-1.2) mg/dl Est Cr Clr Drug Dosing 39.4 ml/min Est GFR ( Amer) 39.2 ml/min Est GFR (Non-Af Amer) 33.8 ml/min BUN/Creatinine Ratio 12.2 (10-20) Glucose 84 (70-99(Fasting)) mg/dl Lactate (0.4-2.0) mmol/L Calcium 8.7 (8.5-10.1) mg/dl Magnesium 1.4 L (1.7-2.4) mg/dl Total Bilirubin 1.0 (0.2-1.0) mg/dl AST 17 (13-39) U/L ALT 10 (7-52) U/L Alkaline Phosphatase 52 (34-104) U/L Ammonia (18-72) umol/L Troponin I High Sens 18.0 H D (0-14) pg/ml Total Protein 6.1 (6.0-8.3) gm/dl Albumin 2.5 L (3.4-5.0) gm/dl Globulin 3.6 (2.5-4.0) gm/dl Albumin/Globulin Ratio 0.7 L (0.9-2) Lipase 21 (11-82) U/L Procalcitonin (0-0.5) ng/ml TSH (0.300-4.500) uIu/ml Urine Color Jenni Urine Appearance Cloudy A (Clear) Urine pH 5.0 (4.5-7.5) Ur Specific [place] 1.026 (1.000-1.030) Urine Protein 1+ H (Negative) Urine Glucose (UA) Negative (Negative) Urine Ketones Trace H (Negative) Urine Blood 3+ H (Negative) Urine Nitrite Positive A (Negative) Urine Bilirubin 2+ H (Negative) Urine Urobilinogen Negative (Negative) Ur Leukocyte Esterase 1+ H (Negative) Urine WBC (Auto) 5-10 H (0-5) /hpf Urine RBC (Auto) >30 H (0-4) /hpf U Hyaline Cast (Auto) 1-5 (0-5) /lpf U Epithel Cells (Auto) >30 H (0-5) /lpf Urine Bacteria (Auto) 1+ H (Negative) Calcium Oxalate Crystal Present A (None Prsent) Urine Mucus Present A (None Prsent) Nasal Screen MRSA (PCR) (Negative) SARS-CoV-2 (PCR) (Negative) Influenza Type A (PCR) (Neg) Influenza Type B (PCR) (Neg) RSV (RT-PCR) (Neg) 08/25/21 08/25/21 08/25/21 Range/Units 07:12 07:12 07:12 WBC 11.90 H (4.8-10.8) K/uL RBC 4.21 (4.2-5.4) M/uL Hgb 11.9 L (12.0-16.0) g/dL Hct 37.9 (37-47) % MCV 90.0 (80-100) fL MCH 28.3 (25-34) pg MCHC 31.4 L (32-36) g/dL RDW Std Deviation 51.1 H (36.4-46.3) fL RDW Coeff of Dominic 15.5 H (11.5-14.5) % Plt Count 520 H (130-400) K/uL MPV 9.6 (7.4-10.4) fL Immature Gran % (Auto) 0.5 % Neut % (Auto) 67.5 % Lymph % (Auto) 17.1 % Barber % (Auto) 12.5 % Eos % (Auto) 2.1 % Baso % (Auto) 0.3 % Neut # (Auto) 8.04 H (1.4-6.5) K/uL Lymph # (Auto) 2.03 (1.2-3.4) K/uL Barber # (Auto) 1.49 H (0.11-0.59) K/uL Eos # (Auto) 0.25 (0-0.5) K/uL Baso # (Auto) 0.03 (0-0.2) K/uL Immature Gran # (Auto) 0.06 H (0.00-0.02) K/uL PT (9.0-12.0) Seconds INR (0.9-1.1) ABG pH (7.35-7.45) ABG pCO2 (35-46) mmHg ABG pO2 (80-95) mmHg ABG HCO3 (19-24) mmol/L ABG O2 Saturation (90-95) % ABG Base Excess (-9-1.8) mEq/L Darshan Test (Pos) VBG pH (7.36-7.41) VBG pCO2 (38-50) mmHg VBG pO2 mmHg VBG HCO3 mmol/L VBG O2 Saturation % VBG Base Excess mEq/L Barometric Pressure mm/Hg Oxygen Given Sodium (136-145) mmol/L Potassium (3.5-5.1) mmol/L Chloride (98-107) mmol/L Carbon Dioxide (21-32) mmol/L Anion Gap (3-11) BUN (6-23) mg/dl Creatinine (0.6-1.2) mg/dl Est Cr Clr Drug Dosing ml/min Est GFR ( Amer) ml/min Est GFR (Non-Af Amer) ml/min BUN/Creatinine Ratio (10-20) Glucose (70-99(Fasting)) mg/dl Lactate (0.4-2.0) mmol/L Calcium (8.5-10.1) mg/dl Magnesium (1.7-2.4) mg/dl Total Bilirubin (0.2-1.0) mg/dl AST (13-39) U/L ALT (7-52) U/L Alkaline Phosphatase (34-104) U/L Ammonia (18-72) umol/L Troponin I High Sens (0-14) pg/ml Total Protein (6.0-8.3) gm/dl Albumin (3.4-5.0) gm/dl Globulin (2.5-4.0) gm/dl Albumin/Globulin Ratio (0.9-2) Lipase (11-82) U/L Procalcitonin 2.25 H (0-0.5) ng/ml TSH 4.231 (0.300-4.500) uIu/ml Urine Color Urine Appearance (Clear) Urine pH (4.5-7.5) Ur Specific [place] (1.000-1.030) Urine Protein (Negative) Urine Glucose (UA) (Negative) Urine Ketones (Negative) Urine Blood (Negative) Urine Nitrite (Negative) Urine Bilirubin (Negative) Urine Urobilinogen (Negative) Ur Leukocyte Esterase (Negative) Urine WBC (Auto) (0-5) /hpf Urine RBC (Auto) (0-4) /hpf U Hyaline Cast (Auto) (0-5) /lpf U Epithel Cells (Auto) (0-5) /lpf Urine Bacteria (Auto) (Negative) Calcium Oxalate Crystal (None Prsent) Urine Mucus (None Prsent) Nasal Screen MRSA (PCR) (Negative) SARS-CoV-2 (PCR) (Negative) Influenza Type A (PCR) (Neg) Influenza Type B (PCR) (Neg) RSV (RT-PCR) (Neg) 08/25/21 08/25/21 08/25/21 Range/Units 07:19 07:19 07:41 WBC (4.8-10.8) K/uL RBC (4.2-5.4) M/uL Hgb (12.0-16.0) g/dL Hct (37-47) % MCV (80-100) fL MCH (25-34) pg MCHC (32-36) g/dL RDW Std Deviation (36.4-46.3) fL RDW Coeff of Dominic (11.5-14.5) % Plt Count (130-400) K/uL MPV (7.4-10.4) fL Immature Gran % (Auto) % Neut % (Auto) % Lymph % (Auto) % Barber % (Auto) % Eos % (Auto) % Baso % (Auto) % Neut # (Auto) (1.4-6.5) K/uL Lymph # (Auto) (1.2-3.4) K/uL Barber # (Auto) (0.11-0.59) K/uL Eos # (Auto) (0-0.5) K/uL Baso # (Auto) (0-0.2) K/uL Immature Gran # (Auto) (0.00-0.02) K/uL PT (9.0-12.0) Seconds INR (0.9-1.1) ABG pH (7.35-7.45) ABG pCO2 (35-46) mmHg ABG pO2 (80-95) mmHg ABG HCO3 (19-24) mmol/L ABG O2 Saturation (90-95) % ABG Base Excess (-9-1.8) mEq/L Darshan Test (Pos) VBG pH 7.48 H (7.36-7.41) VBG pCO2 31 L (38-50) mmHg VBG pO2 47 mmHg VBG HCO3 23 mmol/L VBG O2 Saturation 85.0 % VBG Base Excess 0 mEq/L Barometric Pressure 736.4 mm/Hg Oxygen Given Sodium (136-145) mmol/L Potassium (3.5-5.1) mmol/L Chloride (98-107) mmol/L Carbon Dioxide (21-32) mmol/L Anion Gap (3-11) BUN (6-23) mg/dl Creatinine (0.6-1.2) mg/dl Est Cr Clr Drug Dosing ml/min Est GFR ( Amer) ml/min Est GFR (Non-Af Amer) ml/min BUN/Creatinine Ratio (10-20) Glucose (70-99(Fasting)) mg/dl Lactate 1.2 (0.4-2.0) mmol/L Calcium (8.5-10.1) mg/dl Magnesium (1.7-2.4) mg/dl Total Bilirubin (0.2-1.0) mg/dl AST (13-39) U/L ALT (7-52) U/L Alkaline Phosphatase (34-104) U/L Ammonia 15.0 L (18-72) umol/L Troponin I High Sens (0-14) pg/ml Total Protein (6.0-8.3) gm/dl Albumin (3.4-5.0) gm/dl Globulin (2.5-4.0) gm/dl Albumin/Globulin Ratio (0.9-2) Lipase (11-82) U/L Procalcitonin (0-0.5) ng/ml TSH (0.300-4.500) uIu/ml Urine Color Urine Appearance (Clear) Urine pH (4.5-7.5) Ur Specific [place] (1.000-1.030) Urine Protein (Negative) Urine Glucose (UA) (Negative) Urine Ketones (Negative) Urine Blood (Negative) Urine Nitrite (Negative) Urine Bilirubin (Negative) Urine Urobilinogen (Negative) Ur Leukocyte Esterase (Negative) Urine WBC (Auto) (0-5) /hpf Urine RBC (Auto) (0-4) /hpf U Hyaline Cast (Auto) (0-5) /lpf U Epithel Cells (Auto) (0-5) /lpf Urine Bacteria (Auto) (Negative) Calcium Oxalate Crystal (None Prsent) Urine Mucus (None Prsent) Nasal Screen MRSA (PCR) (Negative) SARS-CoV-2 (PCR) (Negative) Influenza Type A (PCR) (Neg) Influenza Type B (PCR) (Neg) RSV (RT-PCR) (Neg) 08/25/21 08/25/21 08/25/21 Range/Units 07:47 10:23 10:31 WBC (4.8-10.8) K/uL RBC (4.2-5.4) M/uL Hgb (12.0-16.0) g/dL Hct (37-47) % MCV (80-100) fL MCH (25-34) pg MCHC (32-36) g/dL RDW Std Deviation (36.4-46.3) fL RDW Coeff of Dominic (11.5-14.5) % Plt Count (130-400) K/uL MPV (7.4-10.4) fL Immature Gran % (Auto) % Neut % (Auto) % Lymph % (Auto) % Barber % (Auto) % Eos % (Auto) % Baso % (Auto) % Neut # (Auto) (1.4-6.5) K/uL Lymph # (Auto) (1.2-3.4) K/uL Barber # (Auto) (0.11-0.59) K/uL Eos # (Auto) (0-0.5) K/uL Baso # (Auto) (0-0.2) K/uL Immature Gran # (Auto) (0.00-0.02) K/uL PT (9.0-12.0) Seconds INR (0.9-1.1) ABG pH 7.39 (7.35-7.45) ABG pCO2 34 L (35-46) mmHg ABG pO2 111 H (80-95) mmHg ABG HCO3 20 (19-24) mmol/L ABG O2 Saturation 98.1 H (90-95) % ABG Base Excess -3.9 (-9-1.8) mEq/L Darshan Test Pos (Pos) VBG pH (7.36-7.41) VBG pCO2 (38-50) mmHg VBG pO2 mmHg VBG HCO3 mmol/L VBG O2 Saturation % VBG Base Excess mEq/L Barometric Pressure 738.7 mm/Hg Oxygen Given 6L Sodium (136-145) mmol/L Potassium (3.5-5.1) mmol/L Chloride (98-107) mmol/L Carbon Dioxide (21-32) mmol/L Anion Gap (3-11) BUN (6-23) mg/dl Creatinine (0.6-1.2) mg/dl Est Cr Clr Drug Dosing ml/min Est GFR ( Amer) ml/min Est GFR (Non-Af Amer) ml/min BUN/Creatinine Ratio (10-20) Glucose (70-99(Fasting)) mg/dl Lactate (0.4-2.0) mmol/L Calcium (8.5-10.1) mg/dl Magnesium (1.7-2.4) mg/dl Total Bilirubin (0.2-1.0) mg/dl AST (13-39) U/L ALT (7-52) U/L Alkaline Phosphatase (34-104) U/L Ammonia (18-72) umol/L Troponin I High Sens (0-14) pg/ml Total Protein (6.0-8.3) gm/dl Albumin (3.4-5.0) gm/dl Globulin (2.5-4.0) gm/dl Albumin/Globulin Ratio (0.9-2) Lipase (11-82) U/L Procalcitonin (0-0.5) ng/ml TSH (0.300-4.500) uIu/ml Urine Color Urine Appearance (Clear) Urine pH (4.5-7.5) Ur Specific [place] (1.000-1.030) Urine Protein (Negative) Urine Glucose (UA) (Negative) Urine Ketones (Negative) Urine Blood (Negative) Urine Nitrite (Negative) Urine Bilirubin (Negative) Urine Urobilinogen (Negative) Ur Leukocyte Esterase (Negative) Urine WBC (Auto) (0-5) /hpf Urine RBC (Auto) (0-4) /hpf U Hyaline Cast (Auto) (0-5) /lpf U Epithel Cells (Auto) (0-5) /lpf Urine Bacteria (Auto) (Negative) Calcium Oxalate Crystal (None Prsent) Urine Mucus (None Prsent) Nasal Screen MRSA (PCR) Negative (Negative) SARS-CoV-2 (PCR) NEGATIVE (Negative) Influenza Type A (PCR) Negative (Neg) Influenza Type B (PCR) Negative (Neg) RSV (RT-PCR) Negative (Neg) Administered Medications Nystatin (Nystatin Powder 15gm Btl) 1 appln EXT BID PRN PRN Reason: rash Stop: 09/24/21 07:08 Last Admin: 08/25/21 07:52 Dose: 1 appln Documented by: [id number] Discontinued Medications Piperacillin Sod/Tazobactam Sod (Zosyn) 4.5 gm in 120 mls @ 240 mls/hr IV NOW ONE Stop: 08/25/21 07:37 Last Infusion: 08/25/21 08:26 Dose: 0 mls/hr Documented by: [id number] Admin: 08/25/21 07:51 Dose: 240 mls/hr Documented by: [id number] Sodium Chloride (Nss 1000ml) 2,000 mls @ 999 mls/hr IV .Q2H1M ONE Stop: 08/25/21 09:09 Last Infusion: 08/25/21 09:36 Dose: 0 mls/hr Documented by: [id number] Admin: 08/25/21 07:24 Dose: 999 mls/hr Documented by: [id number] Acetaminophen (Ofirmev) 1,000 mg in 100 mls @ 400 mls/hr IV NOW STA Stop: 08/25/21 07:26 Last Infusion: 08/25/21 07:50 Dose: 0 mls/hr Documented by: [id number] Admin: 08/25/21 07:25 Dose: 400 mls/hr Documented by: [id number] Vancomycin HCl 2,000 mg/ (Sodium Chloride) 540 mls @ 200 mls/hr IV NOW ONE Stop: 08/25/21 10:29 Last Admin: 08/25/21 08:29 Dose: 200 mls/hr Documented by: [id number] Magnesium Sulfate/Dextrose (Magnesium Sulfate / D5w) 1 gm in 100 mls @ 200 mls/hr IV Q30M DAVID Stop: 08/25/21 09:12 Last Infusion: 08/25/21 09:36 Dose: 0 mls/hr Documented by: [id number] Admin: 08/25/21 09:06 Dose: 200 mls/hr Documented by: [id number] Infusion: 08/25/21 09:05 Dose: 0 mls/hr Documented by: [id number] Admin: 08/25/21 08:31 Dose: 200 mls/hr Documented by: [id number] Lactated Ringer's (Lr) 1,000 mls @ 999 mls/hr IV .Q1H1M ONE Stop: 08/25/21 10:45 Last Infusion: 08/25/21 11:09 Dose: 0 mls/hr Documented by: [id number] Admin: 08/25/21 09:51 Dose: 999 mls/hr Documented by: [id number] Sodium Chloride (Nss) 250 mls @ 999 mls/hr IV .Q16M ONE Stop: 08/25/21 11:23 Last Infusion: 08/25/21 11:34 Dose: 0 mls/hr Documented by: [id number] Admin: 08/25/21 11:18 Dose: 999 mls/hr Documented by: [id number] Imaging Data Radiologist's Impression: Chest X-Ray 08/25/21 06:59 XR chest 1V portable HISTORY: 76 years-old Female sob acute shortness of breath COMPARISON: Chest CT 08/17/2021 TECHNIQUE: AP view of the chest FINDINGS: Cardiac silhouette is enlarged. Right IJ [id number] catheter is noted with distal tip in the expected location of the brachiocephalic SVC confluence. No pneumothorax. Layering pleural effusions with bibasilar consolidation. Bronchovascular crowding with interstitial coarsening. Large hiatal hernia. The bones appear grossly intact. IMPRESSION: 1. Cardiomegaly with hypoinflation and bronchovascular crowding. 2. Layering pleural effusions with bibasilar consolidation. 3. Large hiatal hernia. ACT 112: Negative or not required by law. The above report was generated using voice recognition software. It may contain grammatical, syntax or spelling errors. Electronically signed by: Regan Whitt M.D. 08/25/2021 8:12 AM Abdomen/Pelvis CT 08/25/21 07:07 CT abd pelvis wo con CLINICAL HISTORY: fever, confusion COMPARISON STUDY: 08/20/2021 CT DOSE: 2760.84 mGy.cm TECHNIQUE: Standard CT of the Abdomen and Pelvis was performed without IV contrast. The patient did not receive oral contrast. A dose lowering technique was utilized adhering to the principles of ALARA. FINDINGS: Lung base: Compared to previous examination, small bilateral pleural effusions. These are present bilaterally with consolidation at both lung bases. While the findings may represent atelectasis, underlying pneumonia cannot be excluded. The heart is enlarged with coronary artery calcification. Moderate size hiatal hernia is again seen. Abdominal cavity: There is no evidence for abdominal mass, adenopathy or ascite s. There is again evidence for anasarca. Liver: The liver is homogeneous in attenuation on these limited noncontrast images.. Spleen: The spleen is homogeneous in attenuation on these limited noncontrast images. Pancreas: The pancreas is homogeneous in attenuation on these limited noncontrast images. Gall Bladder: The gallbladder is well distended with no evidence for cholelithiasis, wall thickening or pericholecystic edema.. Adrenal glands: The adrenal glands are normal in size and attenuation on these limited noncontrast images. Kidneys: The kidneys are homogeneous in attenuation on these limited noncontrast images. There is no evidence for gross renal mass, calculus or hydronephrosis bilaterally. Bowel: The bowel loops are normally placed within the abdomen and pelvis without evidence for dilatation or obstruction. There is no evidence for mass lesion. There is again diverticulosis without evidence for diverticulitis. There are no inflammatory changes present. There is no evidence for free air. Bladder: Rollins catheter is present within the bladder. : There is no evidence for pelvic mass or adenopathy. Vasculature: There is no evidence for focal aneurysmal dilatation of the abdominal aorta. Osseous structures: There is no acute osseous pathology. Degenerative changes are seen within the spine. IMPRESSION: 1. Small bilateral pleural effusions with consolidation at both lung bases. While the findings may represent atelectasis, underlying pneumonia cannot be excluded. 2. There is again evidence for diverticulosis without evidence for di verticulitis. 3. No other evidence for acute intra-abdominal or pelvic abnormality on these limited noncontrast images. 4. Additional nonacute findings are delineated above. ACT 112: Negative or not required by law. Electronically signed by: Isauro Rodriguez M.D. 08/25/2021 9:[address] 08/25/21 07:07 CT SCAN OF THE CHEST WITHOUT IV CONTRAST CLINICAL HISTORY: Fever. Change in mental status. COMPARISON STUDY: Chest x-ray dated 08/15/2021. Chest CT scans dated 08/17/2021 and 02/08/2019. TECHNIQUE: CT scan of the thorax was performed from the thoracic inlet to the upper abdomen. Images are reviewed in the axial, sagittal, and coronal planes. IV contrast was not administered for this examination as per the referring clinician. A dose lowering technique was utilized adhering to the principles of ALARA. The examination is degraded by y streak artifact from the body wall abutting the CT gantry. FINDINGS: Thyroid: Imaged portions of the thyroid gland are normal in size and attenu ation. Thoracic aorta: There is mild atherosclerotic calcification of the thoracic aorta, which is normal in caliber and demonstrates standard 3-vessel arch anatomy. Heart: A right internal jugular central venous infusion port is in place. The heart is mildly enlarged and without pericardial effusion. The coronary arteries are densely calcified. The pulmonary trunk is dilated measuring 3.4 cm in diameter. This suggests pulmonary artery hypertension. Lungs and pleural spaces: Evaluation of the lung parenchyma is significantly degraded by motion artifact. There are small pleural effusions with bibasilar dependent consolidation. Secretions are noted in the trachea. There are scattered calcified granulomas. Mediastinum: The precarinal node measures 14 mm in short axis. There are numerous additional subcentimeter mediastinal lymph nodes. Mildred: Not well assessed without IV contrast. Axillae: There is no axillary lymphadenopathy. Upper abdomen: There is a large hiatal hernia. The majority of the stomach is located in the thorax. Partially visualized upper abdominal viscera is otherwise grossly unremarkable. Skeletal structures: The skeletal structures are osteopenic. Degenerative change and hyperkyphosis are noted in the thoracic spine. Arthritic change is seen in the shoulders with associated bursal fluid. No lytic or blastic bony lesions are seen. IMPRESSION: 1. Small pleural effusions with dependent consolidation. This has increased from 08/17/2021 and could represent atelectasis and/or an infectious/inflammatory pneumonitis. Clinical correlation will be required and radiographic follow-up is recommended. 2. Cardiomegaly. 3. Large hiatal hernia. 4. Mildly enlarged mediastinal lymph nodes are nonspecific. 5. Additional findings as above. ACT 112: Negative or not required by law. Electronically signed by: Shawn Nunez M.D. 08/25/2021 8:[address] 08/25/21 07:07 CT head/brain wo con CLINICAL HISTORY: 76 years-old Female with confusion. Acutely altered mental status TECHNIQUE: Multiple axial CT images of the head were obtained without contrast. A dose lowering technique was utilized adhering to the principles of ALARA. COMPARISON: Head CT 08/15/2021 FINDINGS: No acute intracranial hemorrhage, midline shift, intracranial mass, hydrocephalus, territorial ischemia or abnormal extra-axial collection. 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 White matter hypodensities suggest chronic microvascular ischemic disease. The calvarium is intact. Prior bilateral lens replacement. The paranasal sinuses, mastoid air cells, and middle ear cavities are clear. IMPRESSION: No acute intracranial abnormality. ACT 112: Negative or not required by law. The above report was generated using voice recognition software. It may contain grammatical, syntax or spelling errors. Electronically signed by: Regan Whitt M.D. 08/25/2021 8:27 AM Discharge Plan Visit Data Chief Complaint: Illness Stated Complaint: ILLNESS, POSSIBLE SEPTIC ED Provider: Fuad Parks Discharge Problem: Acute UTI, SHAMEKA (acute kidney injury), Hypomagnesemia, Sepsis, Hypoxia Patient Disposition: Admitted As Inpatient Discharge Instructions Interventions: ED Discharge Assessment Last Done: 08/25/21 11:16 Discharge Problem: Sepsis Qualifiers: Sepsis type: sepsis due to unspecified organism Sepsis acute organ dysfunction status: with acute organ dysfunction Severe sepsis acute organ dysfunction type: acute respiratory failure Acute respiratory failure type: with hypoxia Severe sepsis shock status: without septic shock Qualified Code(s): A41.9 - Sepsis, unspecified organism
[2021-08-25 07:40] LABS: Appearance Urine Cloudy (Clear); Blood Urine 3+ (Negative); Epithelial Cell Urine Auto >30 /lpf (0-5); Glucose Urine UA Negative (Negative); Ketones Urine Trace (Negative); Leukocyte Esterase Urine 1+ (Negative); Nitrite Urine Positive (Negative); Protein Urine 1+ (Negative); RBC Urine Automated >30 /hpf (0-4); Specific Gravity Urine 1.026 (1.000-1.030); Urobilinogen Urine Negative (Negative)
[2021-08-25 07:43] LABS: INR 1.6 (0.9-1.1); Prothrombin Time 16.6 Seconds (9.0-12.0)
[2021-08-25 07:43] LABS: Bilirubin Urine 2+ (Negative); Color Urine Amber
[2021-08-25] MEDS ORDERED: VANCOMYCIN CONSULT ACTIVE PRN (07:48)
[2021-08-25] MEDS ORDERED: VANCOMYCIN HCL 2,000 MG in SODIUM CHLORIDE 0.9% 500 ML IV ONE (07:48)
[2021-08-25 07:57] LABS: Albumin Globulin Ratio 0.7 (0.9-2); Albumin Level 2.5 gm/dl (3.4-5.0); BUN Creatinine Ratio 12.2 (10-20); Calcium 8.7 mg/dl (8.5-10.1); Creatinine Clr Calc Pharmacy 39.4 ml/min; Est GFR (African American) 39.2 ml/min; Est GFR (Non-African American) 33.8 ml/min; Globulin 3.6 gm/dl (2.5-4.0); Magnesium 1.4 mg/dl (1.7-2.4); Potassium 3.8 mmol/L (3.5-5.1); Total Protein 6.1 gm/dl (6.0-8.3)
[2021-08-25 07:57] LABS: Bacteria Urine Automated 1+ (Negative); Calcium Oxalate Crystals Urine Present (None Prsent); Mucus Urine Present (None Prsent)
--- NOTE | 2021-08-25 08:14 | XRay Report ---
XR chest 1V portable HISTORY: 76 years-old Female sob acute shortness of breath COMPARISON: Chest CT 08/17/2021 TECHNIQUE: AP view of the chest FINDINGS: Cardiac silhouette is enlarged. Right IJ Xuhybd-q-Vwyv catheter is noted with distal tip in the expec anastacia location of the brachiocephalic SVC confluence. No pneumothorax. Layering pleural effusions with bibasilar consolidation. Bronchovascular crowding with interstitial coarsening. Large hiatal hernia. The bones appear grossly intact. IMPRESSION: 1. Cardiomegaly with hypoinflation and bronchovascular crowding. 2. Layering pleural effusions with bibasilar consolidation. 3. Large hiatal hernia. ACT 112: Negative or not required by law. The above report was generated using voice recognition software. It may contain grammatical, syntax o r spelling errors. Electronically signed by: Regan Whitt M.D. 08/25/2021 8:12 AM
[2021-08-25 08:20] LABS: pH VBG 7.48 (7.36-7.41)
--- NOTE | 2021-08-25 08:29 | CT Scan Report ---
CT head/brain wo con CLINICAL HISTORY: 76 years-old Female with confusion. Acutely altered mental status TECHNIQUE: Multiple axial CT images of the head were obtained without contrast. A dose lowering tech nique was utilized adhering to the principles of ALARA. COMPARISON: Head CT 08/15/2021 FINDINGS: No acute intracranial hemorrhage, midline shift, intracranial mass, hydrocephalus, territorial ischem ia or abnormal extra-axial collection. 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 White matter hypodensities suggest chronic microvascular ischemic disease. The calvarium is intact. Prior bilateral lens replacement. The paranasal sinuses, mastoid air cells, and middle ear cavities are clear. IMPRESSION: No acute intracranial abnormality. ACT 112: Negative or not required by law. The above report was generated using voice recognition software. It may contain grammatical, syntax o r spelling errors. Electronically signed by: Regan Whitt M.D. 08/25/2021 8:27 AM
[2021-08-25] MEDS: MAGNESIUM SULFATE / D5W 1 GM/100 ML BAG IV SCH ×2 (08:31→09:06)
--- NOTE | 2021-08-25 08:34 | CT Scan Report ---
CT SCAN OF THE CHEST WITHOUT IV CONTRAST CLINICAL HISTORY: Fever. Change in mental status. COMPARISON STUDY: Chest x-ray dated 08/15/2021. Chest CT scans dated 08/17/2021 and 02/08/2019. TECHNIQUE: CT scan of the thorax was performed from the thoracic inlet to the upper abdomen. Images are reviewed in the axial, sagittal, and coronal planes. IV contrast was not administered for this ex amination as per the referring clinician. A dose lowering technique was utilized adhering to the rosalino Aguirre. The examination is degraded by y streak artifact from the body wall abutting the CT gantry. FINDINGS: Thyroid: Imaged portions of the thyroid gland are normal in size and attenuation. Thoracic aorta: There is mild atherosclerotic calcification of the thoracic aorta, which is normal in caliber and demonstrates standard 3-vessel arch anatomy. Heart: A right internal jugular central venous infusion port is in place. The heart is mildly enlarge d and without pericardial effusion. The coronary arteries are densely calcified. The pulmonary trunk is dilated measuring 3.4 cm in diameter. This suggests pulmonary artery hypertension. Lungs and pleural spaces: Evaluation of the lung parenchyma is significantly degraded by motion artif act. There are small pleural effusions with bibasilar dependent consolidation. Secretions are noted i n the trachea. There are scattered calcified granulomas. Mediastinum: The precarinal node measures 14 mm in short axis. There are numerous additional subcenti meter mediastinal lymph nodes. Mildred: Not well assessed without IV contrast. Axillae: There is no axillary lymphadenopathy. Upper abdomen: There is a large hiatal hernia. The majority of the stomach is located in the thorax. Partially visualized upper abdominal viscera is otherwise grossly unremarkable. Skeletal structures: The skeletal structures are osteopenic. Degenerative change and hyperkyphosis ar e noted in the thoracic spine. Arthritic change is seen in the shoulders with associated bursal fluid . No lytic or blastic bony lesions are seen. IMPRESSION: 1. Small pleural effusions with dependent consolidation. This has increased from 08/17/2021 and could r epresent atelectasis and/or an infectious/inflammatory pneumonitis. Clinical correlation will be requ ired and radiographic follow-up is recommended. 2. Cardiomegaly. 3. Large hiatal hernia. 4. Mildly enlarged mediastinal lymph nodes are nonspecific. 5. Additional findings as above. ACT 112: Negative or not required by law. Electronically signed by: Shawn Nunez M.D. 08/25/2021 8:33 AM
--- NOTE | 2021-08-25 09:03 | CT Scan Report ---
CT abd pelvis wo con CLINICAL HISTORY: fever, confusion COMPARISON STUDY: 08/20/2021 CT DOSE: 2760.84 mGy.cm TECHNIQUE: Standard CT of the Abdomen and Pelvis was performed without IV contrast. The patient did not receive oral contrast. A dose lowering technique was utilized adhering to the principles of HARPREET Galdamez. FINDINGS: Lung base: Compared to previous examination, small bilateral pleural effusions. These are present sharmila aterally with consolidation at both lung bases. While the findings may represent atelectasis, underly ing pneumonia cannot be excluded. The heart is enlarged with coronary artery calcification. Moderate size hiatal hernia is again seen. Abdominal cavity: There is no evidence for abdominal mass, adenopathy or ascites. There is again evid ence for anasarca. Liver: The liver is homogeneous in attenuation on these limited noncontrast images.. Spleen: The spleen is homogeneous in attenuation on these limited noncontrast images. Pancreas: The pancreas is homogeneous in attenuation on these limited noncontrast images. Gall Bladder: The gallbladder is well distended with no evidence for cholelithiasis, wall thickening or pericholecystic edema.. Adrenal glands: The adrenal glands are normal in size and attenuation on these limited noncontrast im ages. Kidneys: The kidneys are homogeneous in attenuation on these limited noncontrast images. There is no evidence for gross renal mass, calculus or hydronephrosis bilaterally. Bowel: The bowel loops are normally placed within the abdomen and pelvis without evidence for dilatat ion or obstruction. There is no evidence for mass lesion. There is again diverticulosis without evide nce for diverticulitis. There are no inflammatory changes present. There is no evidence for free air. Bladder: Rollins catheter is present within the bladder. : There is no evidence for pelvic mass or adenopathy. Vasculature: There is no evidence for focal aneurysmal dilatation of the abdominal aorta. Osseous structures: There is no acute osseous pathology. Degenerative changes are seen within the spi ne. IMPRESSION: 1. Small bilateral pleural effusions with consolidation at both lung bases. While the findings may re present atelectasis, underlying pneumonia cannot be excluded. 2. There is again evidence for diverticulosis without evidence for diverticulitis. 3. No other evidence for acute intra-abdominal or pelvic abnormality on these limited noncontrast castro ges. 4. Additional nonacute findings are delineated above. ACT 112: Negative or not required by law. Electronically signed by: Isauro Rodriguez M.D. 08/25/2021 9:01 AM
[2021-08-25 09:10] LABS: Influenza A virus by PCR Negative (Neg); Influenza B virus by PCR Negative (Neg); RSV by PCR Negative (Neg); SARS CoV2 RNA(COVID-19) InHosp NEGATIVE (Negative)
[2021-08-25] MEDS ORDERED: LACTATED RINGER'S 1,000 ML IV ONE (09:45)
[2021-08-25] MEDS ORDERED: SODIUM CHLORIDE 0.9% 250 ML IV ONE (11:08)
[2021-08-25 11:19] LABS: Base Excess ABG -3.9 mEq/L (-9-1.8); HCO3 ABG 20 mmol/L (19-24); Oxygen Saturation ABG 98.1 % (90-95); PCO2 ABG 34 mmHg (35-46); PO2 ABG 111 mmHg (80-95); pH ABG 7.39 (7.35-7.45)
[2021-08-25 11:20] LABS: Allen Test Pos (Pos)
--- NOTE | 2021-08-25 11:20 | History & Physical Report ---
Date of Service August 25, 2021 Assessment & Plan (1) Sepsis: Plan: - Patient presents with marginal hypotension (99/50), tachycardia (124) fever (101.4), tachypnea (27) - positive sepsis criteria without evidence of shock of multiple organ dysfunction - SOFA=3. - 2/2 to UTI and PNA - BC/UC ordered and pending. SC ordered (if able to be obtained) - procal: 2.25 - treat with abx and continue aggressive IV hydration - Hold antihypertensive agents - just hospitalized 08/15 through 08/21 with similar presentation but no source of infection identified. All imaging and culture data negative at that time, DC'ed to SNF (for rehab) with Doxycycline (which she has been taking) (2) Acute UTI: Plan: - UA grossle infected (cloudy, leukocyte esterase and nitrite positive) - CT of the abdomen and pelvis without pyelonephrosis/hydronephrosis/obstructive uropathy - zosyn should provide adequate empiric treatment upfront - UC/BC ordered and pending - tailor final abx based on culture data (need to be sure to also cover for HCAP as well) (3) Pneumonia: Plan: - CT shows small pleural effusions bilaterally with bibasilar infiltrates (new in comparison to CT done on 08/17/2021) - Continue IV Zosyn (which should provide adequate antipseudomonal coverage given recent hospital stay) - MRSA nasal swab negative on 08/15 with repeat pending. 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 If MRSA nasal swab comes back positive, will add daptomycin - Continue supplemental oxygen to maintain a pulse ox of 90 to 92% - start nebulized treatments - Avoid mucolytic agents for now given n.p.o. status (as patient obtunded and unsafe to tolerate oral intake) - Sputum culture ordered (if patient unable to provide specimen) along with blood cultures - Did discuss CODE STATUS with sisters. Patient is a full code (4) Encephalopathy: Plan: - Likely infectious encephalopathy due to pneumonia/UTI and sepsis syndrome - IV antibiotics and aggressive IV hydration ordered - Hold oral medications and keep n.p.o. until safe to tolerate oral intake - Blood cultures, urine culture, sputum cultures ordered and pending (5) SHAMEKA (acute kidney injury): Plan: - Creatinine slightly elevated at 1.48 (with creatinine clearance of 39.4). - Creatinine was 0.86 on 08/21 upon discharge - renally adjust medications when necessary - monitor labs closely (6) Hypomagnesemia: Plan: - supplemented in ED. FU labs in am (7) Elevated troponin: Plan: - HS trop 18.0 without acute EKG changes - FU trop and EKG to trend - suspect elevated from supply/demand ischemia rather than unstable plaque (8) Right arm pain: Plan: - uncertain significance - unable to vocalize pain but nursing report patient yelling out when arm is touched - will obtain venous doppler (as patient with known metastatic Ca)-- is on Eliquis. - if positive for DVT, would consider this an Eliquis failure and transition to Coumadin - for now, utilize lovenox (as obtunded and unable to tolerate any oral meds safely) (9) History of DVT (deep vein thrombosis): Plan: - On Eliquis chronicallyunable to tolerate oral medication given obtunded state - For now, start Lovenox - If venous Doppler right upper extremity positive for DVT, may need to consider transition to Coumadin (10) Hypertension: Plan: - Hold oral antihypertensive agents given hypotension/sepsis syndrome (including amlodipine and metoprolol) (11) Melanoma: Plan: - with metastasis- on Immunotherapy - right IJ in place Plan: spoke with sisters, code status: full code NPO status currently given her obtunded state and inability to safely tolerate oral intake ASPIRATION PRECAUTIONS Plan of care will be discussed with Dr. Monge. Further orders as warranted History of Present Illness Chief Complaint: Confusion Primary Care Provider: [facility] Mrs. Newman is a 76-year-old white female with a past medical history of metastatic melanoma, GERD, and HTN. She was sent to the emergency department due to increased confusion. Patient unable to provide any form of history. History obtained from her sisters and the chart. She was just here 08/15 through 08/21 with increased confusion, tachycardia, and hypotension. No obvious source of infection found at that timeurine culture showed no growth, chest x-ray nonacute, CT of the chest showed no acute cardiopulmonary process, blood cultures negative. Patient was initially treated with Zosyn and vancomycin at that time. Was subsequently transitioned to doxycycline for concern for tickborne illness. Was subsequently discharged to [address] [facility] for continued inpatient rehabilitation. Remains on oral doxycycline has been doing well up until this morning when she was found to have increased confusion and tachycardia which prompted her to be sent to the emergency department for further evaluation and care. Patient is marginally hypotensive (99/50), tachypneic (27), hypoxic (started on supplemental O2 in route and was 89% on 2L) and febrile (101.4 F). Her urinalysis is grossly infected as it is cloudy, nitrite positive and leukocyte esterase positive. She does not have significant leukocytosis but does have a left shift on her differential. Chest x-ray shows no acute cardiopulmonary process; however, CT of the chest shows bibasilar infiltrates and small pleural effusions. Procalcitonin is elevated at 2.25. COVID is negative. Her lactic acid is normal at 1.2. High-sensitivity troponin is elevated at [address] changes[address] The CT of her head shows no acute pathology. Per nursing staff, she is yelling in pain when anyone touches her right arm. Patient will be hospitalized with infectious encephalopathy, UTI, and bibasilar pneumonia. Allergies Allergy/AdvReac Type Severity Reaction Status Date / Time tramadol Allergy Mild NASUEA/CONF Verified 01/15/21 08:49 USION cephalexin [From Keflex] AdvReac Mild upset Verified 01/15/21 08:49 stomach Home Medications Medication Instructions Recorded Confirmed Type amlodipine 5 mg tablet (Norvasc) 5 mg PO QAM 12/05/18 08/15/21 History omeprazole 20 mg tablet,delayed 20 mg PO QAM 12/05/18 08/15/21 History release cholecalciferol (vitamin D3) 25 25 mcg PO QAM 12/11/19 08/15/21 History mcg (1,000 unit) tablet (Vitamin D3) metoprolol tartrate 25 mg tablet 12.5 mg PO BID 03/26/20 08/15/21 History diphenhydramine HCl 25 mg capsule 25 mg PO HS PRN cap 03/28/20 08/15/21 History (Benadryl) multivitamin 1 tab PO QAM 04/25/20 08/15/21 History cetirizine 10 mg tablet (Zyrtec) 10 mg PO QAM 01/14/21 08/15/21 History apixaban 5 mg tablet (Eliquis) 5 mg PO DAILY 08/15/21 08/15/21 History esomeprazole magnesium 20 mg 20 mg PO DAILY 08/15/21 08/15/21 History capsule,delayed release montelukast 10 mg tablet 10 mg PO DAILY 08/15/21 08/15/21 History doxycycline hyclate 100 mg capsule 100 mg PO BID #23 cap 08/21/21 Rx nystatin 100,000 unit/mL oral 5 ml PO QID #140 ml 08/21/21 Rx suspension triamcinolone acetonide 0.1 % 1 applic EXT QID PRN #1 g 08/21/21 Rx topical cream Past Med/Surg History Medical History Cerebral infarct "Presumed old right frontal lobe cerebral infarct" - per Dec 2019 PET scan -- pt unaware/denies 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 No chemo or XRT GERD (gastroesophageal reflux disease) Hearing deficit Hiatal hernia Hx of pulmonary embolus 2019 s/p foot surgery, was on Eliquis for a few months. Hypertension Kidney disease Stage III- does not follow with art department head Left leg DVT post op after foot surgery Melanoma Metastatic malignant melanoma dx'ed 10/29/20 Will require immunotherapy infusions- reason for port Obesity Seasonal allergies SOB (shortness of breath) on exertion Unilateral vocal cord paralysis sees [facility] - Dr. Tinsley Surgical History H/O excision of mass History of ankle surgery RECONSTRUCTION OF LEFT ANKLE History of biopsy History of cataract surgery History of colonoscopy History of esophagogastroduodenoscopy (EGD) History of laryngoscopy Hx of bladder repair surgery Hx of foot surgery reconstructive right foot surgery (2019) Hx of hysterectomy Hx of total knee replacement RIGHT AND LEFT Hx of tubal ligation PONV (postoperative nausea and vomiting) Family History Mother Hearing loss Cancer Sister Hearing loss Cancer Other Breast cancer Family history non-contributory No family history of adverse response to anesthesia No family history of bleeding disorder Social History Smoking Status: Never smoker Second Hand Exposure: No; Hx Alcohol Use: No Hx Substance Use: No Preferred Language: New Zealander Communication Ability: Impaired 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 Eyes are open. Does make good eye contact. Talks but nonsensical. Does appear acutely ill HEENT: Head is AT/NC. Buccal mucosa dry/tacky Neck: No JVD. Negative hepatojugular reflex Cardiac: RRR 1/6 AVINASH Lungs: Currently breathing comfortably on supplemental oxygen. Normal respiratory effort. Scattered Rales throughout in addition to rhonchi predom inantly in the anterior lung sanchez. End expiratory wheezes Abdomen: Normoactive X4. Soft and nontender in all quadrants. Extremities: + Adiposity without true pitting edema of the lower extremities. Right forearm slightly edematous in comparison to the left. Upon palpation, patient yells Neuro: Patient is awake. Attempts to talk but very nonsensical. Currently on oriented to person, place, time or situation. Cranial nerves difficult to assess given inability to cooperate. Eyes do track side to side. Skin: No obvious skin lesions or rashes Psych: Confused. Results & Data Results & Data ([facility]) Vital Signs (Past 12 Hours) Vital Signs Temp Pulse Pulse Resp BP BP Pulse Ox 08/25/21 11:00 88 27 H 99/50 L 96 08/25/21 10:30 96 H 27 H 103/53 L 96 08/25/21 10:00 91 H 21 105/56 L 96 08/25/21 09:30 94 H 26 H 102/44 L 96 08/25/21 09:00 97 H 25 H 95/58 L 96 08/25/21 08:30 108 H 26 H 93/53 L 96 08/25/21 08:27 38.6 C H 08/25/21 08:23 108 H 23 85/50 L 97 08/25/21 08:22 108 H 25 H 86/48 L 97 08/25/21 08:19 97 08/25/21 07:50 115 H 26 H 101/57 L 97 08/25/21 07:30 116 H 32 H 113/61 99 08/25/21 07:19 112 H 30 H 98 08/25/21 07:14 119 H 33 H 113/69 96 08/25/21 07:05 124 H 31 H 94 08/25/21 07:00 39.7 C H 117 H 117 H 20 97/61 L 97/61 L 89 L Laboratory Results 08/25/21 07:12 08/25/21 07:12 Total bilirubin: 1.0 AST: 17 ALT: 10 INR: 1.6 High sensitivity troponin: 18.0 Procalcitonin: 2.25 Lactic acid: 1.2 Urinalysisdoes appear to be grossly infected. Cloudy, leukocyte esterase and nitrite positive COVID: Negative Diagnostic Findings CXR: IMPRESSION: 1. Cardiomegaly with hypoinflation and bronchovascular crowding. 2. Layering pleural effusions with bibasilar consolidation. 3. Large hiatal hernia. CT of the abdomen and pelvis: IMPRESSION: 1. Small bilateral pleural effusions with consolidation at both lung bases. While the findings may represent atelectasis, underlying pneumonia cannot be excluded. 2. There is again evidence for diverticulosis without evidence for diverticulitis. 3. No other evidence for acute intra-abdominal or pelvic abnormality on these limited noncontrast images. 4. Additional nonacute findings are delineated above. CT of the chest: IMPRESSION: 1. Small pleural effusions with dependent consolidation. This has increased from 08/17/2021 and could represent atelectasis and/or an infectious/inflammatory pneumonitis. Clinical correlation will be required and radiographic follow-up is recommended. 2. Cardiomegaly. 3. Large hiatal hernia. 4. Mildly enlarged mediastinal lymph nodes are nonspecific. 5. Additional findings as above. CT of the head: IMPRESSION: No acute intracranial abnormality. Code Status & VTE Plan VTE Prophylaxis Plan VTE Prophylaxis will be ordered: Yes Supervising Physician Co-Signing Physician Notes During face to face encounter, obtained physical exam and history of present illness. Discussed plan of care with patient and APC Li. Reviewed above note and agree with it. Patient will be admitted for sepsis and placed on antibiotics PG Care Time/CCT Total # of Minutes Spent Total Time Spent with Patient: Total time spent is greater than 50% in coordination of care (as documented) at patient's floor/unit and/or counseling patient: Coding Level of Care Code 67977 Initial Inpt Care Lvl 3 Diagnoses Sepsis A41.9; R65.20; J96.01 Acute respiratory failure type: with hypoxia Sepsis acute organ dysfunction status: with acute organ dysfunction Sepsis type: sepsis due to unspecified organism Severe sepsis acute organ dysfunction type: acute respiratory failure Severe sepsis shock status: without septic shock Acute UTI N39.0 Pneumonia J18.9 Encephalopathy G93.40 SHAMEKA (acute kidney injury) N17.9 Hypomagnesemia E83.42 Elevated troponin R77.8 Right arm pain M79.601 Melanoma C43.9 Hypertension I10 History of DVT (deep vein thrombosis) Z86.718 (1) Sepsis Acute respiratory failure type: with hypoxia Sepsis acute organ dysfunction status: with acute organ dysfunction Sepsis type: sepsis due to unspecified organism Severe sepsis acute organ dysfunction type: acute respiratory failure Severe sepsis shock status: without septic shock Qualified Code(s): A41.9 - Sepsis, unspecified organism; R65.20 - Severe sepsis without septic shock; J96.01 - Acute respiratory failure with hypoxia
[2021-08-25] MEDS ORDERED: LACTATED RINGER'S 1,000 ML IV SCH ×3 (12:00→17:00)
[2021-08-25] MEDS: LACTATED RINGER'S 1,000 ML IV SCH ×2 (13:10→20:22)
[2021-08-25] MEDS: ENOXAPARIN 100 MG/1ML SYR SQ SCH (13:10)
[2021-08-25] MEDS: PIPERACILLIN/TAZOBACTAM 4.5 GM in DEXTROSE 5% 100 ML IV SCH ×2 (13:14→20:22)
[2021-08-25] MEDS: ALBUT/IPRATROP 3MG/0.5MG NEB 3 ML VIAL NEB SCH ×3 (13:17→19:59)
--- NOTE | 2021-08-25 14:21 | Ultrasound Report ---
ULTRASOUND RIGHT UPPER EXTREMITY VENOUS CLINICAL HISTORY: Right arm pain and swelling. COMPARISON STUDY: Right upper extremity venous ultrasound dated 05/02/2021. TECHNIQUE: Portable real-time grayscale and color Doppler sonography of the deep veins of the right u pper extremity is performed. Compression and augmentation were utilized. FINDINGS: There is a right internal jugular central venous catheter. There is no sonographic evidence of deep venous thrombosis identified in the right upper extremity. The right internal jugular, axill wilbert, and brachial veins are patent and normally compressible. Normal venous waveforms and augmentatio n are seen within the right subclavian vein. The cephalic and basilic veins are clear. The visualized radial and ulnar veins are patent. IMPRESSION: There is no sonographic evidence of deep venous thrombosis identified in the right upper extremity. ACT 112: Negative or not required by law. Electronically signed by: Shawn Nunez M.D. 08/25/2021 2:20 PM
[2021-08-25] MEDS ORDERED: ALTEPLASE, RECOMBINANT 1 MG/ML 2ML VIAL INSTIL ONE (18:27)
[2021-08-25] MEDS ORDERED: Nursing to Pharmacy Communication SCH (18:45)
[2021-08-25] MEDS: FAMOTIDINE 20 MG in SYRINGE 3 ML IV SCH (20:22)
[2021-08-25] MEDS: ACETAMINOPHEN 1,000 MG/100 ML VIAL IV PRN (23:08)
[2021-08-25] MEDS: ONDANSETRON INJ 2 MG/ML 2 ML VIAL IV PRN (23:32)
[2021-08-26] MEDS ORDERED: HEPARIN 100 UNIT/ML 5ML FLUSH FLUSH PRN (01:49)
[2021-08-26] MEDS: LACTATED RINGER'S 1,000 ML IV SCH (04:02)
[2021-08-26] MEDS: PIPERACILLIN/TAZOBACTAM 4.5 GM in DEXTROSE 5% 100 ML IV SCH ×3 (04:04→20:32)
--- NOTE | 2021-08-26 06:23 | Electrocardiogram Report ---
Test Reason : Blood Pressure : / mmHG Vent. Rate : 118 BPM Atrial Rate : 118 BPM P-R Int : 148 ms QRS Dur : 102 ms QT Int : 332 ms P-R-T Axes : -16 -38 027 degrees QTc Int : 465 ms Sinus tachycardia with occasional Premature ventricular complexes Left axis deviation Abnormal ECG When compared with ECG of 15-AUG-2021 13:06, Premature ventricular complexes are now Present Premature supraventricular complexes are no longer Present Confirmed by Cesar Silva ([id number]) on 08/26/2021 6:23:19 AM Referred By: [facility] Confirmed By:Cesar Silva
[2021-08-26 06:41] LABS: Hematocrit (blood only) 32.8 % (37-47); Hemoglobin 10.3 g/dL (12.0-16.0); Mean Corpuscular Hemoglobin 28.5 pg (25-34); Mean Corpuscular Hgb Conc 31.4 g/dL (32-36); Mean Corpuscular Volume 90.6 fL (80-100); Mean Platelet Volume 9.3 fL (7.4-10.4); Platelet Count 414 K/uL (130-400); RDW Coefficient of Variation 15.5 % (11.5-14.5); Red Blood Count 3.62 M/uL (4.2-5.4)
[2021-08-26 07:00] LABS: INR 1.4 (0.9-1.1)
[2021-08-26 07:03] LABS: BUN Creatinine Ratio 15.4 (10-20); Calcium 8.1 mg/dl (8.5-10.1); Creatinine Clr Calc Pharmacy 48.6 ml/min; Est GFR (Non-African American) 42.3 ml/min
[2021-08-26 07:07] LABS: Albumin Globulin Ratio 0.7 (0.9-2); Albumin Level 2.2 gm/dl (3.4-5.0); Bilirubin,Total 0.6 mg/dl (0.2-1.0); Globulin 3.1 gm/dl (2.5-4.0); Magnesium 1.7 mg/dl (1.7-2.4); Total Protein 5.3 gm/dl (6.0-8.3)
[2021-08-26] MEDS: ALBUT/IPRATROP 3MG/0.5MG NEB 3 ML VIAL NEB SCH ×4 (07:18→19:26)
--- NOTE | 2021-08-26 09:23 | Hospitalist Progress Note ---
Date of Service August 26, 2021 Assessment & Plan (1) Sepsis: Plan: - Patient presented with marginal hypotension (99/50), tachycardia (124) fever (101.4), tachypnea (27) - positive sepsis criteria without evidence of shock of multiple organ dysfunction - SOFA=3. - 2/2 to UTI and PNA. Also, ? Cellulitis of right arm - BC/UC ordered and pending. SC ordered (not obtainable up until this point) - procal: 2.25 - treat with abx and continue aggressive IV hydration - antipyretics prn - Hold antihypertensive agents - just hospitalized 08/15 through 08/21 with similar presentation but no source of infection identified. All imaging and culture data negative at that time, DC'ed to SNF (for rehab) with Doxycycline (which she has been taking) -Thus far, seems to be showing subtle but favorable response: not as somnolent, BP improved (105/71), HR slightly improved (107), WBC down to 8.6 (from 11.9). At this point, has been on IV abx for just now 24 hours. Would be inclined to keep current coverage with zosyn. IF not further improvement but tomorrow or worsening in clinical status, would broaden and add MRSA coverage as she is immunocompromised (however, MRSA nasal swab neg thus likely NOT MRSA PNA and was on Doxycycline when these symptoms developed). LOW THRESHOLD TO BROADEN COVERAGE AT THIS TIME (2) Acute UTI: Plan: - UA grossly infected (cloudy, leukocyte esterase and nitrite positive) - CT of the abdomen and pelvis without pyelonephrosis/hydronephrosis/obstructive uropathy - zosyn should provide adequate empiric treatment upfront - UC/BC ordered and pending - tailor final abx based on culture data (need to be sure to also cover for HCAP as well) (3) Pneumonia: Plan: - CT shows small pleural effusions bilaterally with bibasilar infiltrates (new in comparison to CT done on 08/17/2021) - Continue IV Zosyn (which should provide adequate antipseudomonal coverage given recent hospital stay) - in addition, MBS done during recent stay and there was concern for silent aspiration at that time. Zosyn should provide adequate gram-negative and anaerobic coverage. May consider speech therapy consult when patient more awake and alert - MRSA nasal swab negative on 08/15 with repeat pending. Do not feel strongly that she needs MRSA or atypical coverage at this time (as on Doxycycline KETTLE COOK). - Continue supplemental oxygen to maintain a pulse ox of 90 to 92% - continue nebulized treatments - Avoid mucolytic agents for now given n.p.o. status (as patient obtunded and unsafe to tolerate oral intake) - Sputum culture ordered (if patient unable to provide specimen) along with blood cultures - Did discuss CODE STATUS with sisters on 08/25 Patient is a full code (4) Encephalopathy: Plan: - Likely infectious encephalopathy due to pneumonia/UTI and sepsis syndrome - continue IV antibiotics and aggressive IV hydration - Hold oral medications and keep n.p.o. until safe to tolerate oral intake - Blood cultures, urine culture, sputum cultures ordered and pending - if no improvement or worsening by tomorrow (would be 48 hours of IV abx at that time), consider MRI of the brain (5) SHAMEKA (acute kidney injury): Plan: - Creatinine slightly elevated at 1.48 (with creatinine clearance of 39.4). - Creatinine was 0.86 on 08/21 upon discharge - renally adjust medications when necessary - Cr. downtrending-- down to 1.2 - continue IVF-- transition to normosol. - FU labs in am (6) Hypomagnesemia: Plan: - replaced/resolved (7) Elevated troponin: Plan: - HS trop 18.0 without acute EKG changes - FU trop downtrending (15.1) and repeat EKG without acute changes - suspect elevated from supply/demand ischemia rather than unstable plaque (8) Right arm pain: Plan: - uncertain significance - unable to vocalize pain but nursing report patient yelling out when arm is touched - venous doppler done despite being on Eliquis (as patient with known metastatic Ca): negative for DVT - slightly increased erythema/edema today. ?? developing cellulitis. Again, was on Doxy KETTLE COOK (would provide adequate MRSA coverage). Now on Zosyn. No antibiotic change unless persistent fevers ongoing after 08/27 or worsening symptoms (9) Central line complication: Plan: - Patient with history of metastatic melanoma and clear cell sarcoma for which she receives IV immunotherapies with Mediport to right chest wall - Mediport not actively flushing or aspirating - Assessed by IV team. Received Cathflo but line still seems nonfunctional - We will need to have assessed by general surgeon or vascular (likely needs removed with insertion of new line) But will wait until more medically stable (10) History of DVT (deep vein thrombosis): Plan: - On Eliquis chronicallyunable to tolerate oral medication given obtunded state - For now, utilizing Lovenox - Right upper extremity venous Doppler shows no evidence of DVT (11) Hypertension: Plan: - Hold oral antihypertensive agents given hypotension/sepsis syndrome (including amlodipine and metoprolol) (12) Melanoma: Plan: - with metastasis- on Immunotherapy - mediport in place-- nonfunctional at this time Plan: spoke with sisters on 08/26-- code status: full code NPO status currently given her obtunded state and inability to safely tolerate oral intake ASPIRATION PRECAUTIONS attempted to call sister (Lillie) today (08/26). no answer. message left. Plan of care will be discussed with Dr. Monge. Further orders as warranted Admission and Anticipated Discharge Date Admission Date: August 25, 2021 Subjective Patient seen on daily rounds today. She remains somnolent. Easily opens her eyes today and is yelling out but otherwise no significant change from yesterday. Still spiking fevers (100.5 as of this afternoon). Culture data is pending. Mediport does not flush or aspirate. Received Cathflo instillation but still does not flush/aspirate. Review of Systems Review of Systems: unobtainable Physical Exam Physical Exam: General: Resting comfortably in her hospital bed. She does open her eyes but remains excessively somnolent. Occasionally yells out. HEENT: Head is AT/NC. Buccal mucosa is moist and pink Neck: No JVD. Negative hepatojugular reflex Cardiac: RRR Lungs: Oxymask mask remains in place (patient mouth breather). Breathing comfortably on supplemental oxygen. Normal respiratory effort. Significantly improved air exchange throughout without wheezes, rales or rhonchi today Abdomen: Normoactive X4. Soft. Extremities:Right arm mildly erythematous and edematous. Neuro: Excessively somnolent but opens eyes easily. Yelling out. Nurse reports she did say "I need to drink" but mostly nonverbal Skin: Right upper extremity mildly erythematous/edematous Psych: Excessively somnolentsee above Results & Data Results & Data ([facility]) Vital Signs (Past 12 Hours) Vital Signs Temp Pulse Pulse Resp BP BP Pulse Ox 08/26/21 07:18 84 20 92 08/26/21 04:16 36.9 C 93 H 22 105/71 89/60 L 94 08/26/21 01:39 36.6 C 92 H 22 96 08/25/21 23:02 38.3 C H 103 H 32 H 115/68 96 08/25/21 22:20 100 H Laboratory Results 08/26/21 06:29 08/26/21 06:29 INR: 1.4 Total bilirubin 0.6 AST: 22 ALT: 10 Ammonia: 15 PG Care Time/CCT Total # of Minutes Spent Total Time Spent with Patient: Total time spent is greater than 50% in coordination of care (as documented) at patient's floor/unit and/or counseling patient: Coding Level of Care Code 03206 Subseq Hosp Care Lvl 3 Diagnoses Sepsis A41.9; R65.20; J96.01 Acute respiratory failure type: with hypoxia Sepsis acute organ dysfunction status: with acute organ dysfunction Sepsis type: sepsis due to unspecified organism Severe sepsis acute organ dysfunction type: acute respiratory failure Severe sepsis shock status: without septic shock Acute UTI N39.0 Pneumonia J18.9 Encephalopathy G93.40 SHAMEKA (acute kidney injury) N17.9 Hypomagnesemia E83.42 Elevated troponin R77.8 Right arm pain M79.601 History of DVT (deep vein thrombosis) Z86.718 Hypertension I10 Melanoma C43.9 Central line complication T82.9XXA (1) Sepsis Acute respiratory failure type: with hypoxia Sepsis acute organ dysfunction status: with acute organ dysfunction Sepsis type: sepsis due to unspecified organism Severe sepsis acute organ dysfunction type: acute respiratory failure Severe sepsis shock status: without septic shock Qualified Code(s): A41.9 - Sepsis, unspecified organism; R65.20 - Severe sepsis without septic shock; J 96.01 - Acute respiratory failure with hypoxia
[2021-08-26] MEDS: NORMOSOL-R 1,000 ML IV SCH (10:00)
[2021-08-26] MEDS: ENOXAPARIN 100 MG/1ML SYR SQ SCH ×2 (10:02→20:33)
[2021-08-26] MEDS: ACETAMINOPHEN 1,000 MG/100 ML VIAL IV PRN (12:42)
[2021-08-26 14:45] LABS: Adenovirus PCR Not Detected (NotDetected); Bordetella parapertussis PCR Not Detected (NotDetected); Bordetella pertussis PCR Not Detected (NotDetected); Chlamydia pneumoniae PCR Not Detected (NotDetected); Coronavirus 229E PCR Not Detected (NotDetected); Coronavirus CoV-2 (COVID19)PCR Not Detected (NotDetected); Coronavirus HKU1 PCR Not Detected (NotDetected); Coronavirus NL63 PCR Not Detected (NotDetected); Coronavirus OC43PCR Not Detected (NotDetected); Human Metapneumovirus PCR Not Detected (NotDetected); Influenza A PCR Not Detected (NotDetected); Influenza B PCR Not Detected (NotDetected); Mycoplasma pneumoniae PCR Not Detected (NotDetected); Parainfluenza Virus 1 PCR Not Detected (NotDetected); Parainfluenza Virus 2 PCR Not Detected (NotDetected); Parainfluenza Virus 3 PCR Not Detected (NotDetected); Parainfluenza Virus 4 PCR Not Detected (NotDetected); Respiratory Syncytial VirusPCR Not Detected (NotDetected); Rhinovirus/Enterovirus PCR Not Detected (NotDetected)
[2021-08-26] MEDS: FAMOTIDINE 20 MG in SYRINGE 3 ML IV SCH (20:32)
[2021-08-27] MEDS ORDERED: FUROSEMIDE INJ 20 MG/2 ML VIAL IV ONE (00:55)
[2021-08-27] MEDS: NORMOSOL-R 1,000 ML IV SCH (01:10)
[2021-08-27] MEDS: ALBUMIN 25% 100 mL 25 GM/100 ML VIAL IV SCH ×2 (01:17→02:58)
[2021-08-27] MEDS: PIPERACILLIN/TAZOBACTAM 4.5 GM in DEXTROSE 5% 100 ML IV SCH ×3 (05:09→21:47)
[2021-08-27] MEDS: ALBUT/IPRATROP 3MG/0.5MG NEB 3 ML VIAL NEB SCH (07:13)
[2021-08-27 07:54] LABS: BUN Creatinine Ratio 16.3 (10-20); Calcium 8.5 mg/dl (8.5-10.1); Creatinine Clr Calc Pharmacy 46.4 ml/min; Est GFR (African American) 46.3 ml/min; Est GFR (Non-African American) 39.9 ml/min; Magnesium 1.8 mg/dl (1.7-2.4); Potassium 3.7 mmol/L (3.5-5.1)
--- NOTE | 2021-08-27 10:03 | Hospitalist Progress Note ---
Date of Service August 27, 2021 Assessment & Plan (1) Sepsis: Plan: - Patient presented with marginal hypotension (99/50), tachycardia (124) fever (101.4), tachypnea (27) - positive sepsis criteria without evidence of shock of multiple organ dysfunction - SOFA=3. - 2/2 to UTI (UA grossly infected although UC showing no growth) and PNA (seen on CT). Also, ? Cellulitis of right arm - BC: NGTD - UC: NGT - SC ordered but remains uncollected as patient unable to expectorate - procal: 2.25 - treated with abx and continue aggressive IV hydration-- Is showing favorable response. BP/HR now normal (118/66 & 86), and no fever spike since 08/26 @1200 - continue with antipyretics prn - continue to Hold antihypertensive agents - just hospitalized 08/15 through 08/21 with similar presentation but no source of infection identified. All imaging and culture data negative but ESR and CRP elevated- DC'ed to SNF (for rehab) with Doxycycline (which she had been taking) -Thus far, seems to be showing continued favorable response. Continue empiric coverage with Zosyn. If decline or persistent fevers, would have low threshold to broaden abx coverage as she is immunocompromised (however, MRSA nasal swab neg thus likely NOT MRSA PNA and was on Doxycycline when these symptoms developed). If continue response, would be inclined to transition to Augmentin to complete full course (would treat x 10 days given sepsis on arrival) (2) Acute UTI: Plan: - UA grossly infected (cloudy, leukocyte esterase and nitrite positive). Perhabs culture skewed given oral Doxycycline on board [employer] - CT of the abdomen and pelvis without pyelonephrosis/hydronephrosis/obstructive uropathy - zosyn should provide adequate empiric treatment upfront (3) Pneumonia: Plan: - CT showing small pleural effusions bilaterally with bibasilar infiltrates (new in comparison to CT done on 08/17/2021) - Continue IV Zosyn (which should provide adequate antipseudomonal coverage given recent hospital stay). Can consider transition to oral Augmentin to complete full 10 days of treatment - in addition, MBS done during recent stay and there was concern for silent aspiration at that time. Zosyn should provide adequate gram-negative and anaerobic coverage. --Patient has been n.p.o. up until this point given her obtunded state and need for airway protection --Although MBS does show concern for silent aspiration, I did discuss this with speech therapy (Vandana Sherwood) who adamantly reports patient does not have aspiration concerns --Now that patient is more awake and alert, will initiate oral intake at recommendations of ST (full liquid. Advance to pured and minced/moist as tolerated) - MRSA nasal swab negative on 08/15 and again 08/25. Do not feel strongly that she needs MRSA or atypical coverage at this time (as on Doxycycline [employer]). Favorable response noted with Zosyn - Continue supplemental oxygen to maintain a pulse ox of 90 to 92% - continue nebulized treatments--> change from scheduled to prn - Sputum culture ordered (but uncollected as unable to expectorate) - Did discuss CODE STATUS with sisters on 08/25 Patient is a full code -Overall, patient is showing favorable response. She seems to have defervesced. She now remains hemodynamically stable. Her Oxymask has been converted to nasal cannula with down titration of supplemental oxygen. Her mentation has improved greatly. She remains somnolent and confused but is awake, able to converse, and oriented to self. (4) Encephalopathy: Plan: - Metabolic/Septic Encephalopathy (from PNA and ?UTI) - Showing favorable response. Although she remains excessively somnolent, she is no longer obtunded. She is able to converse although remains slightly nonsensical - CT of the head done upon arrival showing no acute intracranial process. - Given her fever and sepsis syndrome presentation, along with favorable response with IV antibioticsdo not need MRI or further brain imaging at this time - Oral medications and oral intake have been held up until this point. - Will start oral intake (with full liquids and advance to pured then minced/moist as recommended by ST) (5) SHAMEKA (acute kidney injury): Plan: - Creatinine elevated at 1.48 upon arrival (with creatinine clearance of 39.4). - Creatinine was 0.86 on 08/21 upon discharge - improved with adequate IV hydration - Overnight (08/26-08/27) there was concern given her limited urinary output and subtle edema. Her IVF were stopped and she was given Lasix IV. Creatinine uptrending slightly - I believe that poor urine output was likely from SHAMEKA (and perhap ATN) from sepsis and hypoperfusion given her hypotension. Prior to Lasix, she was not oligouric. - WOULD REFRAIN FROM GIVING ADDITIONAL LASIX AT THIS TIME - she does have mild edema of the LE but is not in fulminant CHF.volume overload). This is likely given her low albumin of 2.2 (will start oral supplement) - If able to hydrate orally, will encourage this. If not, will place back on Normosol at 60cc/hr with close monitoring of labs (6) Elevated troponin: Plan: - HS trop 18.0 without acute EKG changes - FU trop downtrending (15.1) and repeat EKG without acute changes - suspect elevated from supply/demand ischemia rather than unstable plaque (7) Hypomagnesemia: Plan: - replaced/resolved (8) Right arm pain: Plan: - suspect was a mild/developing cellulitis that now seems to be improving - initially, unable to vocalize pain but nursing report patient yelling out when arm is touched - venous doppler done despite being on Eliquis (as patient with known metastatic Ca): negative for DVT - erythema, edema improving. 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 Received Cathflo but line still seems nonfunctional - consult vascular (likely needs removed with insertion of new line). This can potentially be done as an OP as can not resume immunotherapy for a least 2 weeks following stability from sepsis. (10) History of DVT (deep vein thrombosis): Plan: - On Eliquis chronicallyunable to tolerate oral medication given obtunded state - For now, utilizing Lovenox - Right upper extremity venous Doppler shows no evidence of DVT (11) Hypertension: Plan: - Hold oral antihypertensive agents given hypotension/sepsis syndrome (including amlodipine and metoprolol) - 08/27: BP improved (118/66). Will continue to hold these medications for now (12) Melanoma: Plan: - with metastasis- on Immunotherapy - mediport in place-- nonfunctional at this time Plan: spoke with sisters on 08/25-- code status: full code Patient showing favorable response. consult PT/OT CM to check with [facility] to determine if she is a bed hold continue [employer] Spoke with Lillie (Sister) on 08/27 Plan of care will be discussed with Dr. Monge. Further orders as warranted Admission and Anticipated Discharge Date Admission Date: August 25, 2021 Subjective Patient seen on daily rounds today. She is much more awake today. Oriented to self/year. Not oriented to place or situation. She is asking to eat. Reports that he mouth is dry. Nursing who did oral care was concerned that patient had ulcers in her mouth as she was yelling out during this; however, patient has been yelling out with any manipulation. Overnight resident was called that patient had little urine output and some eun a of the legs. Patient was subsequently given Lasix 20mg x1 (at 0055) and IV Albumin. IV fluids were also stopped. Patient's creatinine has slightly uptrended this am (1.29-- from 1.23). Review of Systems Review of Systems: Although patient much more awake today, her full ROS remain unobtainable Physical Exam Physical Exam: General: Resting comfortably in her hospital bed. Much more awake today. Talking/verbal. Difficult to understand given dry mouth and talking through Oxymask mask HEENT: Head is AT/NC. Buccal mucosa remains very dry. Residual white and black film on the roof of the mouth. Patient with obvious discomfort when mouth assessed Neck: No JVD. Negative hepatojugular reflex Cardiac: RRR Lungs: Oxymask mask remains in place (patient mouth breather). Breathing comfortably on supplemental oxygen. Transitioned to NC. Normal respiratory effort. Significantly improved air exchange throughout without wheezes, rales or rhonchi today Abdomen: Normoactive X4. Soft. Extremities:Right arm mildly erythematous and edematous but improved from day prior. B/L LE with trace pitting edema Neuro: somnolent but much more awake today. Talkative but difficult to understand. Oriented to self. Is not oriented to time or situation Skin: Right upper extremity mildly erythematous/edematous Psych: somnolent but arousable. Results & Data Results & Data ([facility]) Vital Signs (Past 12 Hours) Vital Signs Temp Pulse Pulse Resp BP BP Pulse Ox 08/27/21 08:19 36.4 C L 86 20 118/66 93 08/27/21 07:29 76 08/27/21 07:15 83 18 91 08/27/21 03:45 37.0 C 85 112/66 96 08/27/21 02:21 103/67 08/26/21 23:28 36.9 C 87 20 93/57 L 97 08/26/21 22:18 86 PG Care Time/CCT Total # of Minutes Spent Total Time Spent with Patient: Total time spent is greater than 50% in coordination of care (as documented) at patient's floor/unit and/or counseling patient: Coding Level of Care Code 52856 Subseq Hosp Care Lvl 3 Diagnoses Sepsis A41.9; R65.20; J96.01 Acute respiratory failure type: with hypoxia Sepsis acute organ dysfunction status: with acute organ dysfunction Sepsis type: sepsis due to unspecified organism Severe sepsis acute organ dysfunction type: acute respiratory failure Severe sepsis shock status: without septic shock Acute UTI N39.0 Pneumonia J18.9 Encephalopathy G93.40 SHAMEKA (acute kidney injury) N17.9 Hypomagnesemia E83.42 Elevated troponin R77.8 Right arm pain M79.601 Central line complication T82.9XXA History of DVT (deep vein thrombosis) Z86.718 Hypertension I10 Melanoma C43.9 (1) Sepsis Acute respiratory failure type: with hypoxia Sepsis acute organ dysfunction status: with acute organ dysfunction Sepsis type: sepsis due to unspecified organism Severe sepsis acute organ dysfunction type: acute respiratory failure Severe sepsis shock status: without septic shock Qualified Code(s): A41.9 - Sepsis, unspecified organism; R65.20 - Severe sepsis without septic shock; J96.01 - Acute respiratory failure with hypoxia
[2021-08-27] MEDS: ENOXAPARIN 100 MG/1ML SYR SQ SCH ×2 (10:08→21:46)
[2021-08-27] MEDS ORDERED: ALBUT/IPRATROP 3MG/0.5MG NEB 3 ML VIAL NEB PRN (10:50)
[2021-08-27] MEDS: CLOTRIMAZOLE 10 MG TROCHE BUCCAL SCH ×5 (11:56→22:23)
[2021-08-27 12:21] LABS: Basophils # (auto) 0.03 K/uL (0-0.2); Basophils % (auto) 0.5 %; Eosinophils # (auto) 0.73 K/uL (0-0.5); Eosinophils % (auto) 11.2 %; Hematocrit (blood only) 30.5 % (37-47); Hemoglobin 9.2 g/dL (12.0-16.0); Immature Granulocytes # (auto) 0.03 K/uL (0.00-0.02); Immature Granulocytes % (auto) 0.5 %; Lymphocytes # (auto) 0.95 K/uL (1.2-3.4); Lymphocytes % (auto) 14.6 %; Mean Corpuscular Hgb Conc 30.2 g/dL (32-36); Mean Corpuscular Volume 92.7 fL (80-100); Mean Platelet Volume 9.7 fL (7.4-10.4); Monocytes # (auto) 0.55 K/uL (0.11-0.59); Monocytes % (auto) 8.5 %; Neutrophils # (auto) 4.21 K/uL (1.4-6.5); Neutrophils % (auto) 64.7 %; Platelet Count 462 K/uL (130-400); RDW Coefficient of Variation 15.9 % (11.5-14.5); RDW Standard Deviation 54.7 fL (36.4-46.3); Red Blood Count 3.29 M/uL (4.2-5.4)
[2021-08-27 16:07] LABS: Creatinine Urine Random 126.4 mg/dl
[2021-08-27] MEDS ORDERED: LINEZOLID CONSULT ACTIVE PRN (16:25)
[2021-08-27] MEDS ORDERED: NORMOSOL-R 1,000 ML IV SCH (16:30)
[2021-08-27] MEDS ORDERED: LINEZOLID 600 MG/300 ML D5W IV SCH ×2 (17:00→20:00)
[2021-08-27] MEDS: ACETAMINOPHEN 1,000 MG/100 ML VIAL IV PRN (17:11)
[2021-08-27 17:23] LABS: Basophils # (auto) 0.05 K/uL (0-0.2); Basophils % (auto) 0.5 %; Eosinophils # (auto) 1.07 K/uL (0-0.5); Eosinophils % (auto) 10.1 %; Hematocrit (blood only) 24.9 % (37-47); Hemoglobin 7.7 g/dL (12.0-16.0); Immature Granulocytes # (auto) 0.04 K/uL (0.00-0.02); Immature Granulocytes % (auto) 0.4 %; Lymphocytes # (auto) 1.39 K/uL (1.2-3.4); Lymphocytes % (auto) 13.1 %; Mean Corpuscular Hemoglobin 27.9 pg (25-34); Mean Corpuscular Hgb Conc 30.9 g/dL (32-36); Mean Corpuscular Volume 90.2 fL (80-100); Mean Platelet Volume 9.4 fL (7.4-10.4); Monocytes # (auto) 0.82 K/uL (0.11-0.59); Monocytes % (auto) 7.7 %; Neutrophils # (auto) 7.27 K/uL (1.4-6.5); Neutrophils % (auto) 68.2 %; Platelet Count 670 K/uL (130-400); RDW Coefficient of Variation 15.9 % (11.5-14.5); RDW Standard Deviation 51.9 fL (36.4-46.3); Red Blood Count 2.76 M/uL (4.2-5.4); White Blood Count 10.64 K/uL (4.8-10.8)
[2021-08-27 17:52] LABS: BUN Creatinine Ratio 15.6 (10-20); C Reactive Protein 27.7 mg/dl (0-0.5); Calcium 8.8 mg/dl (8.5-10.1); Creatinine Clr Calc Pharmacy 44.4 ml/min; Est GFR (African American) 43.8 ml/min; Est GFR (Non-African American) 37.8 ml/min; Potassium 3.6 mmol/L (3.5-5.1)
[2021-08-27] MEDS ORDERED: GLUCOSE 40% GEL 15 GM TUBE PO PRN (18:00)
[2021-08-27] MEDS ORDERED: DEXTROSE 50% 50 ML SYRINGE IV PRN (18:00)
[2021-08-27] MEDS ORDERED: GLUCAGON FOR INJ 1 MG VIAL SQ PRN (18:00)
[2021-08-27] MEDS ORDERED: GLUCOSE 10 TABS/TUBE PO PRN (18:00)
[2021-08-27] MEDS ORDERED: CARBOHYDRATES FOR HYPOGLYCEMIA PO PRN (18:00)
[2021-08-27] MEDS ORDERED: SODIUM CHLORIDE 0.9% 250 ML IV PRN (18:03)
[2021-08-27] MEDS: D5W AND NSS 1,000 ML IV SCH (18:05)
[2021-08-27] MEDS: levoFLOXacin/D5W 750 MG/150 ML BAG IV SCH (18:07)
[2021-08-27] MEDS: LINEZOLID 600 MG/300 ML BAG IV SCH (18:09)
--- NOTE | 2021-08-27 19:43 | CT Scan Report ---
CT SCAN OF THE ABDOMEN AND PELVIS WITHOUT IV CONTRAST CLINICAL HISTORY: Anemia. COMPARISON STUDY: Abdominal CT dated 08/25/2021. TECHNIQUE: CT scan of the abdomen and pelvis is performed from the lung bases to the proximal femora. Images are reviewed in the axial, sagittal, and coronal planes. IV contrast was not administered for this examination. Note that the examination was performed in significantly suboptimal fashion withou t oral and IV contrast. There is motion artifact, as well as streak artifact from the arms which coul d not be elevated above the abdomen. A dose lowering technique was utilized adhering to the principle s of ALARA. CT DOSE: 1759.01 mGy.cm FINDINGS: Lung bases: The heart is top normal in size and without pericardial effusion. The coronary arteries a re densely calcified. There is a moderate to large hiatal hernia. There are small to moderate pleural effusions with dense bibasilar consolidation. Liver: The unenhanced liver is mildly enlarged measuring 18.3 cm in length. The liver is otherwise no rmal in contour and attenuation. There is no intrahepatic biliary ductal dilatation. Gallbladder: Gallstones are suspected. There is no CT evidence of acute cholecystitis. Spleen: Normal in size and attenuation. Pancreas: The unenhanced pancreas is atrophic and grossly unremarkable. Adrenal glands: Unremarkable. Kidneys: The unenhanced kidneys demonstrate cortical atrophy and are without hydronephrosis. There ar e no renal calculi identified. There is no evidence of contour deforming renal mass lesion. There is slightly asymmetric left-sided perinephric stranding. Abdominal vasculature: The abdominal aorta is normal in course and caliber. Bowel: There is mild to moderate diverticulosis of left colon without CT evidence of acute diverticul itis. No bowel obstruction is seen. Liquid stool is noted throughout the colon. The appendix is not visualized. Peritoneum/retroperitoneum: No retroperitoneal hemorrhage is identified. No intraperitoneal free air is seen and there is no abdominal ascites. There is a fat-containing umbilical hernia. Lymphadenopathy: None. Pelvic viscera: The bladder is decompressed and a Rollins catheter and not well evaluated. The uterus i s surgically absent. No adnexal lesion is seen. Asymmetric soft tissue edema is noted in the right up per thigh as compared to left. Surgical clips are noted in the left groin. Skeletal structures: The skeletal structures are osteopenic. There is moderate to advanced lumbosacra l spondylosis. No lytic or blastic lesions are seen. There are healed left pubic ring fractures. IMPRESSION: 1. Suboptimal examination without oral and IV contrast. The Examination is also degraded by streak an d motion. 2. Small to moderate pleural effusions with dependent consolidation. This is similar to previous. 3. Moderate to large hiatal hernia. 4. There is body wall edema with asymmetric soft tissue edema in the right upper thigh as compared to the left. Clinical correlation will be required. 5. There is asymmetric left-sided perinephric stranding. Correlate with clinical findings and urinaly sis. 6. Suspect cholelithiasis. 7. Liquid stool is seen throughout the colon. Correlate clinically for evidence of a diarrheal illnes s. 8. Additional findings as above. ACT 112: Negative or not required by law. Electronically signed by: Shawn Nunez M.D. 08/27/2021 7:40 PM
[2021-08-27] MEDS: ACETAMINOPHEN 325 MG TAB PO ONE ×2 (21:28→23:31)
[2021-08-27] MEDS: FAMOTIDINE 20 MG in SYRINGE 3 ML IV SCH (21:46)
[2021-08-28] MEDS: PIPERACILLIN/TAZOBACTAM 4.5 GM in DEXTROSE 5% 100 ML IV SCH ×3 (04:24→20:26)
[2021-08-28] MEDS: LINEZOLID 600 MG/300 ML BAG IV SCH (04:24)
--- NOTE | 2021-08-28 05:30 | Electrocardiogram Report ---
Test Reason : Blood Pressure : / mmHG Vent. Rate : 094 BPM Atrial Rate : 094 BPM P-R Int : 156 ms QRS Dur : 104 ms QT Int : 374 ms P-R-T Axes : 000 -24 025 degrees QTc Int : 467 ms Sinus rhythm with occasional Premature ventricular complexes and Premature atrial complexes Otherwise normal ECG When compared with ECG of 25-AUG-2021 07:02, Premature atrial complexes are now Present Confirmed by Cesar Silva ([id number]) on 08/28/2021 5:29:40 AM Referred By: [facility] Confirmed By:Cesar Silva
--- NOTE | 2021-08-28 05:32 | Electrocardiogram Report ---
Test Reason : Blood Pressure : / mmHG Vent. Rate : 096 BPM Atrial Rate : 096 BPM P-R Int : 156 ms QRS Dur : 102 ms QT Int : 372 ms P-R-T Axes : 003 -27 -13 degrees QTc Int : 469 ms Normal sinus rhythm with occasional Premature atrial complexes When compared with ECG of 25-AUG-2021 07:02, Premature ventricular complexes are no longer Present Confirmed by Cesar Silva ([id number]) on 08/28/2021 5:31:32 AM Referred By: [facility] Confirmed By:Cesar Silva
--- NOTE | 2021-08-28 06:49 | Ultrasound Report ---
US liver HISTORY: 76 years-old Female FUO acute right upper quadrant abdominal pain COMPARISON: CT abdomen and pelvis 08/27/2021 TECHNIQUE: Multiple real-time sonographic images of the abdominal right upper quadrant were obtained assessing grayscale appearance and color flow FINDINGS: The visualized pancreas is unremarkable. The liver measures up to 19.5 cm in length. No hepatic mass identified. Study is limited secondary to patient body habitus. Mildly distended gallbladder with pos sible biliary sludge. No cholelithiasis, gallbladder wall thickening or pericholecystic fluid. Normal common bile duct, 7 mm. The imaged right kidney is unremarkable without hydronephrosis. IMPRESSION: 1. No cholelithiasis or sonographic evidence of acute cholecystitis. 2. No biliary ductal dilation. ACT 112: Negative or not required by law. The above report was generated using voice recognition software. It may contain grammatical, syntax o r spelling errors. Electronically signed by: Regan Whitt M.D. 08/28/2021 6:48 AM
[2021-08-28 07:43] LABS: Hematocrit (blood only) 37.9 % (37-47); Hemoglobin 12.1 g/dL (12.0-16.0); Mean Corpuscular Hemoglobin 28.2 pg (25-34); Mean Corpuscular Hgb Conc 31.9 g/dL (32-36); Mean Corpuscular Volume 88.3 fL (80-100); Mean Platelet Volume 9.4 fL (7.4-10.4); Platelet Count 490 K/uL (130-400); RDW Coefficient of Variation 15.8 % (11.5-14.5); RDW Standard Deviation 50.8 fL (36.4-46.3); Red Blood Count 4.29 M/uL (4.2-5.4)
[2021-08-28 07:47] LABS: BUN Creatinine Ratio 16.8 (10-20); Calcium 8.7 mg/dl (8.5-10.1); Creatinine Clr Calc Pharmacy 51.1 ml/min; Magnesium 1.7 mg/dl (1.7-2.4); Potassium 3.4 mmol/L (3.5-5.1)
[2021-08-28] MEDS: ONDANSETRON INJ 2 MG/ML 2 ML VIAL IV PRN (07:48)
[2021-08-28] MEDS: CLOTRIMAZOLE 10 MG TROCHE BUCCAL SCH ×5 (07:49→23:36)
[2021-08-28] MEDS: ENOXAPARIN 100 MG/1ML SYR SQ SCH ×2 (07:49→20:26)
[2021-08-28] MEDS: D5W AND NSS 1,000 ML IV SCH ×2 (07:50→15:15)
--- NOTE | 2021-08-28 07:53 | Magnetic Resonance Report ---
MR brain wo con HISTORY: 76 years-old Female FUO, encephalopathy acute strokelike symptoms COMPARISON: Head CT 08/25/2021 TECHNIQUE: Multiplanar multisequence MRI of the brain was obtained without the use of IV contrast. FINDINGS: Motion degraded exam. There is a 6 cm focus of increased diffusion-weighted signal within the right p arietal lobe on image 17 series 4 which demonstrates intermediate signal on ADC map and mildly increa sed T2/FLAIR signal. No acute or subacute territorial infarct. Midline structures are unremarkable. P artially empty sella. Degenerative changes of the imaged cervical spine. Age-related involutional changes. Extensive and confluent T2/FLAIR hyperintense foci throughout the w williams matter are suggestive of chronic microvascular ischemic disease. Encephalomalacia and gliosis wi thin the right frontal lobe is suggestive of a chronic infarct. The cerebral venous sinuses and major arterial flow voids appear patent. Bilateral mastoid effusions with mild mucosal thickening of the p aranasal sinuses. The skull and soft tissues are unremarkable. Prior bilateral lens replacement. IMPRESSION: 1. Motion degraded exam. 2. 6 mm focus of restricted diffusion within the right parietal lobe is suggestive of an acute versus subacute lacunar infarct. 3. Chronic right frontal lobe infarct 4. Involutional changes with chronic microvascular ischemic disease. ACT 112: Negative or not required by law. The above report was generated using voice recognition software. It may contain grammatical, syntax o r spelling errors. Electronically signed by: Regan Whitt M.D. 08/28/2021 7:52 AM
--- NOTE | 2021-08-28 08:41 | Ultrasound Report ---
US effusion-chest/mediastinum CLINICAL HISTORY: Pleural effusions. Follow-up. COMPARISON STUDY: Abdomen and pelvis CT 08/27/2021. FINDINGS: Small bilateral pleural effusions measuring 186 cc on the right and 151 cc and the left. IMPRESSION: Small bilateral pleural effusions as above. ACT 112: Negative or not required by law. Electronically signed by: Solomon Serrato M.D. 08/28/2021 8:39 AM
--- NOTE | 2021-08-28 09:10 | Nephrology Consultation ---
Date of Consultation August 28, 2021 Assessment & Plan (1) Chronic kidney disease, stage III (moderate): * CKD stage G3b/A1. Her baseline Cr has been 1.0 - 1.2 dating back to 01/05. Urinalysis suggestive of infection. Culture is negative. Abdominal CT reveals bilateral cortical thinning suggestive of microvascular disease * Will order follow up urinalysis w/ microscopy as patient has been on antibiotic therapy. * Will check UPCR. Note that urinalysis was only 1+ on concentrated sample * Monitor PRP (2) Fever of unknown origin: * Possible UTI however culture is negative * Testing for tick borne illness, viral infection and bacterial sepsis has been negative * Recommend consolidating antibiotic therapy. Consider consultation w/ ID regarding FUO History of Present Illness Reason for Consultation: SHAMEKA/CKD Attending Physician: Thompson Gibson MD History of Present Illness Ms. Newman is a 76 year old white female who is seen at the request of the [facility] for evaluation of SHAMEKA/CKD. Ms. Newman is delirious and unable to provide any details of her medical history. Information has been obtained from the EMR and is summarized as follows: Ms. Newman has not undergone Nephrology evaluation in the past. She has CKD stage G3b/A1. Her baseline Cr has been 1.0 - 1.2 dating back to 01/05. Urinalysis on admission was difficult to interpret due to possible infection. It did test + for protein, nitrates and LE. Urine microscopy revealed hematuria and pyuria. 09/[address] revealed cortical atrophy of the kidneys without hydronephrosis, mass or stone. Ms. Newman was admitted to [facility] 08/25/21 for evaluation of fever, relative hypotension and mental status changes. Chest CT revealed small bilateral pleural effusions and bibasilar atelectasis. Ms. Newman is currently on broad spectrum antibiotics. Her fever has resolved and WBC# has corrected. Cr is unchanged. Blood and urine cultures have been NGTD. Recent testing for COVID, RSV, influenza, parainfluenza, adenovirus, Lyme disease, Anaplasmosis and Babesia was negative. Allergies Allergy/AdvReac Type Severity Reaction Status Date / Time tramadol Allergy Mild NASUEA/CONF Verified 01/15/21 08:49 USION cephalexin [From Keflex] AdvReac Mild upset Verified 01/15/21 08:49 stomach Home Medications Medication Instructions Recorded Confirmed Type amlodipine 5 mg tablet (Norvasc) 5 mg PO QAM 12/05/18 08/15/21 History omeprazole 20 mg tablet,delayed 20 mg PO QAM 12/05/18 08/15/21 History release cholecalciferol (vitamin D3) 25 25 mcg PO QAM 12/11/19 08/15/21 History mcg (1,000 unit) tablet (Vitamin D3) metoprolol tartrate 25 mg tablet 12.5 mg PO BID 03/26/20 08/15/21 History diphenhydramine HCl 25 mg capsule 25 mg PO HS PRN cap 03/28/20 08/15/21 History (Benadryl) multivitamin 1 tab PO QAM 04/25/20 08/15/21 History cetirizine 10 mg tablet (Zyrtec) 10 mg PO QAM 01/14/21 08/15/21 History apixaban 5 mg tablet (Eliquis) 5 mg PO DAILY 08/15/21 08/15/21 History esomeprazole magnesium 20 mg 20 mg PO DAILY 08/15/21 08/15/21 History capsule,delayed release montelukast 10 mg tablet 10 mg PO DAILY 08/15/21 08/15/21 History doxycycline hyclate 100 mg capsule 100 mg PO BID #23 cap 08/21/21 Rx nystatin 100,000 unit/mL oral 5 ml PO QID #140 ml 08/21/21 Rx suspension triamcinolone acetonide 0.1 % 1 applic EXT QID PRN #1 g 08/21/21 Rx topical cream Patient History Medical History Cerebral infarct "Presumed old right frontal lobe cerebral infarct" - per Dec 2019 PET scan -- pt unaware/denies 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 No chemo or XRT GERD (gastroesophageal reflux disease) Hearing deficit Hiatal hernia Hx of pulmonary embolus 2018 s/p foot surgery, was on Eliquis for a few months. 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 Tinsley Surgical History H/O excision of mass History of ankle surgery RECONSTRUCTION OF LEFT ANKLE History of biopsy History of cataract surgery History of colonoscopy History of esophagogastroduodenoscopy (EGD) History of laryngoscopy Hx of bladder repair surgery Hx of foot surgery reconstructive right foot surgery (2019) Hx of hysterectomy Hx of total knee replacement RIGHT AND LEFT Hx of tubal ligation PONV (postoperative nausea and vomiting) Family History Mother Hearing loss Cancer Sister Hearing loss Cancer Other Breast cancer Family history non-contributory No family history of adverse response to anesthesia No family history of bleeding disorder Social History Smoking Status: Never smoker Second Hand Exposure: No; Hx Alcohol Use: No Hx Substance Use: No Preferred Language: Pashto Communication Ability: Impaired Inspector Returned Materials Required: No Beliefs That Will Affect Care: None marital status: Current Living Situation: Halfway How many Children do You have: 2 Feels Safe at Home: Yes during the past year weight has: increased > 10 lbs Assistive Devices: Cane, Denture - Upper, Denture - Lower and Walker Review of Systems Review of Systems: Unobtainable due to cognitive status Physical Exam Constitutional: not in distress Eyes: PERRL, conjunctivae normal, anicteric sclerae ENMT: external ear and nose normal, oropharynx normal Neck: trachea midline, no thyromegaly Respiratory: normal respiratory effort, lungs clear to auscultation Cardiovascular: Rate/Rhythm: regular rate and regular rhythm Extremities: + edema (trace LE swelling) Gastrointestinal (Abdomen): normal bowel sounds, soft, nontender, no hepatosplenomegaly Skin: no rashes, warm and dry Neurologic: awake and + confused Results & Data ([facility]) Vital Signs (Past 12 Hours) Vital Signs Temp Pulse Pulse Resp BP BP Pulse Ox 08/28/21 07:34 36.7 C 84 18 108/69 97 08/28/21 06:32 36.7 C 85 18 108/69 96 08/28/21 05:39 36.6 C 87 22 115/70 98 08/28/21 04:39 36.9 C 85 16 116/72 95 08/28/21 04:09 37.0 C 84 16 106/65 97 08/28/21 03:54 36.6 C 85 18 105/62 97 08/28/21 03:34 36.8 C 85 18 106/67 95 08/28/21 03:19 37.1 C 84 16 97/61 L 95 08/28/21 02:57 36.8 C 88 16 112/65 93 08/28/21 01:57 36.9 C 83 18 102/34 L 94 08/28/21 01:50 91 H 08/28/21 00:57 36.4 C L 83 20 102/58 L 93 08/28/21 00:27 36.6 C 83 20 99/59 L 93 08/28/21 00:12 37.0 C 82 20 110/64 92 08/27/21 23:56 36.6 C 82 20 95/58 L 93 08/27/21 21:51 36.5 C 85 16 98/61 L 96 Laboratory Results Laboratory Tests 08/27/21 08/27/21 08/28/21 16:56 16:56 07:03 WBC 7.70 Hgb 12.1 D Hct 37.9 Plt Count 490 H Sodium Potassium Chloride Carbon Dioxide BUN Creatinine Glucose Calcium Magnesium C-Reactive Protein 27.70 H Procalcitonin 3.58 H 08/28/21 07:03 WBC Hgb Hct Plt Count Sodium 141 Potassium 3.4 L Chloride 109 H Carbon Dioxide 24 BUN 20 Creatinine 1.19 Glucose 90 Calcium 8.7 Magnesium 1.7 C-Reactive Protein Procalcitonin Laboratory Tests 12/24/18 02/09/19 12/11/19 05:55 02:00 11:28 Creatinine 1.25 H 1.29 H 1.15 02/28/21 03/24/21 05/07/21 13:52 13:44 11:39 Creatinine 1.22 H 1.12 1.09 06/17/21 07/08/21 08/19/21 13:11 10:35 07:41 Creatinine 1.07 1.05 1.18 08/21/21 08/25/21 08/27/21 05:45 07:12 16:56 Creatinine 0.86 1.48 H 1.35 H 08/28/21 07:03 Creatinine 1.19 Diagnostic Findings 08/27/[address]: The unenhanced kidneys demonstrate cortical atrophy and are without hydronephrosis. There are no renal calculi identified. There is no evidence of contour deforming renal mass lesion. There is slightly asymmetric left-sided perinephric stranding. 08/25/[address]: Small pleural effusions with dependent consolidation. This has increased from 08/17/2021 and could represent atelectasis and/or an infectious/inflammatory pneumonitis. Clinical correlation will be required and radiographic follow-up is recommended. 08/25/21 Blood culture: Aerobic Blood Culture - Preliminary No growth in Aerobic bottle after 48 hours. Anaerobic Blood Culture - Preliminary No growth in Anaerobic bottle after 48 hours. 08/25/21 Urine culture: Urine Culture - Final No growth - less than 1,000 colonies/mL. PG Care Time/CCT Total # of Minutes Spent Total Time Spent with Patient: Total time spent is greater than 50% in coordination of care (as documented) at patient's floor/unit and/or counseling patient: Coding Level of Care Code 61803 Inpt Consult Level 5 Diagnoses Chronic kidney disease, stage III (moderate) N18.30 Fever of unknown origin R50.9
--- NOTE | 2021-08-28 10:20 | Surgery Consultation ---
Date of Consultation August 28, 2021 Assessment & Plan (1) Central line complication: After discussion with the medical team and nursing there is a slight concern that the port is causing her fevers however she does have a pneumonia and UTI as well The port itself is working intermittently at best so I believe it should come out at some point We will tentatively plan to remove the Mediport Wednesday She does have blood cultures pending, if these come back positive and the port needs to be removed sooner Dr. Abbott's on-call over the and will remove the port sooner if needed Hold her p.m. dose of Lovenox on Wednesday and a.m. dose Wednesday N.p.o. after midnight Wednesday History of Present Illness Reason for Consultation: Port removal Attending Physician: Thompson Gibson MD History of Present Illness This is a 76-year-old female who was admitted on 08/25/2021 with altered mental status and was found to have a pneumonia. She was spiking fevers and there was concern that her port may be infected. According to the family the port has not been working for some time now as it has been clotted off. It has not been used at all during his hospitalization until Cathflo was used yesterday to flush through the port. At this time they were able to give IV fluids through it however there was no blood return. She has had negative blood cultures x2 so far and there is another set pending currently. She has no redness of the chest wall or neck. She was also recently found to have a subacute infarct on the MRI of her brain. On therapeutic Lovenox due to her being on Eliquis as an outpatient. History of present illness was obtained from the nurses as well as the chart as the patient has altered mental status and unable to give an accurate history. Allergies Allergy/AdvReac Type Severity Reaction Status Date / Time tramadol Allergy Mild NASUEA/CONF Verified 01/15/21 08:49 USION cephalexin [From Keflex] AdvReac Mild upset Verified 01/15/21 08:49 stomach Home Medications Medication Instructions Recorded Confirmed Type amlodipine 5 mg tablet (Norvasc) 5 mg PO QAM 12/05/18 08/15/21 History omeprazole 20 mg tablet,delayed 20 mg PO QAM 12/05/18 08/15/21 History release cholecalciferol (vitamin D3) 25 25 mcg PO QAM 12/11/19 08/15/21 History mcg (1,000 unit) tablet (Vitamin D3) metoprolol tartrate 25 mg tablet 12.5 mg PO BID 03/26/20 08/15/21 History diphenhydramine HCl 25 mg capsule 25 mg PO HS PRN cap 03/28/20 08/15/21 History (Benadryl) multivitamin 1 tab PO QAM 04/25/20 08/15/21 History cetirizine 10 mg tablet (Zyrtec) 10 mg PO QAM 01/14/21 08/15/21 History apixaban 5 mg tablet (Eliquis) 5 mg PO DAILY 08/15/21 08/15/21 History esomeprazole magnesium 20 mg 20 mg PO DAILY 08/15/21 08/15/21 History capsule,delayed release montelukast 10 mg tablet 10 mg PO DAILY 08/15/21 08/15/21 History doxycycline hyclate 100 mg capsule 100 mg PO BID #23 cap 08/21/21 Rx nystatin 100,000 unit/mL oral 5 ml PO QID #140 ml 08/21/21 Rx suspension triamcinolone acetonide 0.1 % 1 applic EXT QID PRN #1 g 08/21/21 Rx topical cream Patient History Medical History Cerebral infarct "Presumed old right frontal lobe cerebral infarct" - per Dec 2019 PET scan -- pt unaware/denies 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 No chemo or XRT GERD (gastroesophageal reflux disease) Hearing deficit Hiatal hernia Hx of pulmonary embolus 2019 s/p foot surgery, was on Eliquis for a few months. 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 Tinsley Surgical History H/O excision of mass History of ankle surgery RECONSTRUCTION OF LEFT ANKLE History of biopsy History of cataract surgery History of colonoscopy History of esophagogastroduodenoscopy (EGD) History of laryngoscopy Hx of bladder repair surgery Hx of foot surgery reconstructive right foot surgery (2019) Hx of hysterectomy Hx of total knee replacement RIGHT AND LEFT Hx of tubal ligation PONV (postoperative nausea and vomiting) Family History Mother Hearing loss Cancer Sister Hearing loss Cancer Other Breast cancer Family history non-contributory No family history of adverse response to anesthesia No family history of bleeding disorder Social History Smoking Status: Never smoker Second Hand Exposure: No; Hx Alcohol Use: No Hx Substance Use: No Preferred Language: Pashto Communication Ability: Impaired 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 Beliefs That Will Affect Care: None marital status: Current Living Situation: Shelter How many Children do You have: 2 Feels Safe at Home: Yes during the past year weight has: increased > 10 lbs Assistive Devices: Cane, Denture - Upper, Denture - Lower and Walker Review of Systems Review of Systems: Unobtainable due to cognitive status Physical Exam Constitutional: WD/WN, vitals as above Eyes: PERRL, conjunctivae normal, anicteric sclerae Neck: normal visual inspection and trachea midline No cellulitis Respiratory: normal respiratory effort, lungs clear to auscultation Cardiovascular: Rate/Rhythm: regular rate Gastrointestinal (Abdomen): normal bowel sounds, soft, nontender, no hepatosplenomegaly Musculoskeletal: no cyanosis or clubbing, extremities motor strength 5/5 Skin: no rashes, warm and dry Neurologic: awake and + confused Psychiatric: Orientation: alert Results & Data ([facility]) Vital Signs (Past 12 Hours) Vital Signs Temp Pulse Pulse Resp BP BP Pulse Ox 08/28/21 09:57 89 08/28/21 07:34 36.7 C 84 18 108/69 97 08/28/21 06:32 36.7 C 85 18 108/69 96 08/28/21 05:39 36.6 C 87 22 115/70 98 08/28/21 04:39 36.9 C 85 16 116/72 95 08/28/21 04:09 37.0 C 84 16 106/65 97 08/28/21 03:54 36.6 C 85 18 105/62 97 08/28/21 03:34 36.8 C 85 18 106/67 95 08/28/21 03:19 37.1 C 84 16 97/61 L 95 08/28/21 02:57 36.8 C 88 16 112/65 93 08/28/21 01:57 36.9 C 83 18 102/34 L 94 08/28/21 01:50 91 H 08/28/21 00:57 36.4 C L 83 20 102/58 L 93 08/28/21 00:27 36.6 C 83 20 99/59 L 93 08/28/21 00:12 37.0 C 82 20 110/64 92 08/27/21 23:56 36.6 C 82 20 95/58 L 93 PG Care Time/CCT Total # of Minutes Spent Total Time Spent with Patient: Total time spent is greater than 50% in coordination of care (as documented) at patient's floor/unit and/or counseling patient: Coding Level of Care Code 89030 Inpt Consult Level 4 Diagnoses Central line complication T82.9XXA
[2021-08-28 11:02] LABS: Chol HDL Ratio 7.6 (0-5)
--- NOTE | 2021-08-28 11:22 | Ultrasound Report ---
BILATERAL CAROTID DOPPLER STUDY HISTORY: Right parietal stroke. COMPARISON: None. TECHNIQUE: Real-time, grayscale, and color Doppler sonography of the carotid arteries was performed. Imaging reviewed in the transverse and longitudinal planes. All measurements were calculated based on NASCET criteria. FINDINGS: Antegrade flow is seen in the bilateral vertebral arteries. A small focus of calcified plaque within the right proximal internal carotid artery. The peak systolic velocity within the right ICA is 61 cm/s. The right systolic ratio is 0.9. The peak systolic velocity within the left ICA is 65 cm/s. The left systolic ratio is 0.9. IMPRESSION: No hemodynamically significant stenosis seen within the carotid arteries. ACT 112: Negative or not required by law. Electronically signed by: oSlomon Serrato M.D. 08/28/2021 11:21 AM
[2021-08-28] MEDS: POTASSIUM CHLORIDE / WTR 10 MEQ/100 ML PLCT IV SCH ×2 (11:47→12:43)
[2021-08-28 12:21] LABS: Estimated Average Glucose 120 mg/dl; Hemoglobin A1C 5.8 % (4.5-5.6)
[2021-08-28 15:14] LABS: Appearance Urine Turbid (Clear); Bacteria Urine Automated Negative (Negative); Blood Urine 3+ (Negative); Color Urine Orange; Epithelial Cell Urine Auto >30 /lpf (0-5); Glucose Urine UA Negative (Negative); Ketones Urine Trace (Negative); Leukocyte Esterase Urine 1+ (Negative); Nitrite Urine Positive (Negative); Protein Urine 2+ (Negative); Specific Gravity Urine 1.035 (1.000-1.030); Urobilinogen Urine Negative (Negative); WBC Urine Automated >30 /hpf (0-5)
[2021-08-28] MEDS: DAPTOmycin 500 MG in SYRINGE 0 ML IV SCH (15:14)
[2021-08-28] MEDS: ASPIRIN 81 MG ECTAB PO SCH (15:14)
[2021-08-28 15:21] LABS: Bilirubin Urine 1+ (Negative)
[2021-08-28 15:28] LABS: Creatinine Urine Random 190.5 mg/dl; Protein Creatinine Ratio Urine 0.5 (0-0.2); Total Protein Urine Random 103.7 mg/dl (0-11.9)
--- NOTE | 2021-08-28 16:36 | Hospitalist Progress Note ---
Date of Service August 28, 2021 Assessment & Plan (1) Cerebrovascular accident (CVA): Plan: - MRI brain revealing R parietal acute/subacute infarct - Case d/w neurology who felt that a formal consult was not needed - Obtain Echocardiogram - ASA and Lipitor advised, holding Lipitor as she is empirically on Dapto empirically - Speech therapy eval re-ordered d/t coughing spell while drinking water and new dx of stroke; appreciate assistance * Diet ordered, requires thickened liquids, will need repeat VFSS prior to d/c - PT/OT eval (2) Fever of unknown origin: Plan: - presented with SIRS criteria including tachycardia (124), fever (101.4), tachypnea (27), and marginal BP of 99/50 - Sources of infection include: grossly infected urine (cloudy, nitrite and leukocyte esterase+), urine cx pending + radiologic evidence of PNA with hypoxia - Also concerned regarding existing mediport which could also is another potential source of infection - Procalcitonin elevated at 2.25 which has uptrended to 3.58 - CRP elevated at 27.70 - Treated upfront with aggressive IVF hydration - APAP as needed for fever, would not utilize until temp is greater than or equal to 38C - Holding antihypertensives d/t marginal BP (which has since improved w/ hydration) - RUQ ultrasound revealed no evidence of acute/chronic cholecystitis as possible source - Blood cultures thus far reveal no growth to date - Recently hospitalized 08/15-08/21 with similar presentation w/o obvious source identified; however, was treated empirically w/ Doxy for possible tick-borne illness - Currently she is empirically on the following antibiotic therapy: Zosyn, Levaquin, and Daptomycin * Zosyn covering for HAP/Aspiration PNA (also providing pseudomonal coverage given recent hospitalization with d/c to SNF) * Levaquin adds double antipseudomonal coverage * Daptomycin covering for possible MRSA (again d/t recent hospitalization and d/c to SNF). Of note, her MRSA swab was negative on admission and repeat is pending, thus she was changed from Zyvox to Daptomycin as MRSA pneumonia is not felt be likely - Pt now with another temp spike of 38.2C -- really suspicious that her immunotherapy (Ketruda) could be causing systemic inflammation * Will start on steroids and monitor response -- dose of Solumedrol 125mg IV x1 now and will continue with plans to transition to oral Prednisone taper * Repeat blood cultures again today d/t another fever spike for completeness - Repeat inflammatory markers tomorrow 08/29 (3) Acute UTI: Plan: - UA appears grossly infected (cloudy, leukocyte esterase and nitrite positive). Perhabs culture skewed given oral Doxycycline on board CHEMISTRY LECTURER - CT of the abdomen and pelvis without pyelonephrosis/hydronephrosis/obstructive uropathy - Zosyn should provide adequate empiric treatment upfront - Pinpoint growth noted, culture pending (4) Pneumonia: Plan: - CT showing small pleural effusions bilaterally with bibasilar infiltrates (new in comparison to CT done on 08/17/2021) - Continue IV Zosyn (which should provide adequate antipseudomonal coverage given recent hospital stay). - in addition, MBS done during recent stay and there was concern for silent aspiration at that time. Zosyn should provide adequate gram-negative and anaerobic coverage. * Patient has been n.p.o. up until this point given her obtunded state and need for airway protection * Although MBS does show concern for silent aspiration, this was discussed w/ speech therapy (Vandana Sherwood) who adamantly reports patient does not have aspiration concerns * Now that patient is more awake and alert, will initiate oral intake at recommendations of ST (full liquid. Advance to pured and minced/moist as tolerated) * Pt made NPO by general surgery d/t planned removal of mediport but this was an error as general surgery plans to remove this no sooner than Wednesday. But she was kept NPO d/t aspiration concerns. ST notified. - MRSA nasal swab negative on 08/15 and again 08/25 which is why she was not initially started on MRSA coverage which has since been added on 08/27 - Continue supplemental oxygen to maintain a pulse ox of 90 to 92% - continue nebulized treatments--> change from scheduled to prn - Sputum culture ordered (but uncollected as unable to expectorate) - Did discuss CODE STATUS with sisters on 08/25 Patient is a full code - Still requiring 5-6L of supplemental O2. Repeat CXR to be done today. U/S of chest done this morning (08/28) demonstrating stable small bilateral effusions (5) Encephalopathy: Plan: - Metabolic Encephalopathy (from PNA and ?UTI) - Showing favorable response. Although she remains excessively somnolent, she is no longer obtunded. She is able to converse although remains slightly nonsensical - CT of the head done upon arrival showing no acute intracranial process. - Given her fever and sepsis syndrome presentation, along with favorable response with IV antibioticsdo not need MRI or further brain imaging at this time - Oral medications and diet initially held d/t obtunded state but has since been reordered as she is more awake/alert (6) SHAMEKA (acute kidney injury): Plan: - Creatinine elevated at 1.48 upon arrival (with creatinine clearance of 39.4). - Creatinine was 0.86 on 08/21 upon discharge - improved with adequate IV hydration - Overnight (08/26-08/27) there was concern given her limited urinary output and subtle edema. Her IVF were stopped and she was given Lasix IV. Creatinine uptrending slightly - I believe that poor urine output was likely from SHAMEKA (and perhaps ATN) from sepsis and hypoperfusion given her hypotension. Prior to Lasix, she was not oliguric. - WOULD REFRAIN FROM GIVING ADDITIONAL LASIX AT THIS TIME - she does have mild edema of the LE but is not in fulminant CHF/volume overload). This is likely given her low albumin of 2.2 (will start oral supplement) - If able to hydrate orally, will encourage this. If not, will place back on Normosol at 60cc/hr with close monitoring of labs - Capped IVF on 08/28, creat down to 1.19 (7) Elevated troponin: Plan: - HS trop 18.0 without acute EKG changes - FU trop downtrending (15.1) and repeat EKG without acute changes - suspect elevated from myocardial demand ischemia rather than unstable plaque (8) Hypomagnesemia: Plan: - replaced/resolved (9) Right arm pain: Plan: - suspect was a mild/developing cellulitis that now seems to be improving - initially, unable to vocalize pain but nursing report patient yelling out when arm is touched - venous doppler done despite being on Eliquis (as patient with known metastatic Ca): negative for DVT - erythema, edema improving. 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 Received Cathflo but line still seems nonfunctional - d/w general surgery, will plan to remove line on Wednesday (11) History of DVT (deep vein thrombosis): Plan: - On Eliquis chronicallyunable to tolerate oral medication given obtunded state - For now, utilizing Lovenox - Right upper extremity venous Doppler shows no evidence of DVT (12) Hypertension: Plan: - Hold oral antihypertensive agents given hypotension/sepsis syndrome (including amlodipine and metoprolol) - 08/27: BP improved (118/66). Will continue to hold these medications for now (13) Melanoma: Plan: - with metastasis - on Ketruda infusions every 3 weeks - mediport in place--semi-functional as it can be accessed for IVF but no blood draws Plan: spoke with sisters on 08/25-- code status: full code Provided update to patient's sisters on 08/28 at bedside Repeat labs in AM Start steroids PT/OT eval Plan to be d/w Dr. Gibson Admission and Anticipated Discharge Date Admission Date: August 25, 2021 Subjective Patient seen on daily rounds this morning. She is sitting up in bed, mumbling nonsensically but alert and attempts to follow commands. Notified by RN that she had coughing spell shortly after drinking water later this morning. In addition, notified that brain MRI (performed 08/27) revealed a R parietal acute v subacute CVA. Review of Systems Review of Systems: Although patient much more awake today, her full ROS remain unobtainable Physical Exam Physical Exam: GENERAL: 76 yo well-developed, well-nourished elderly WF. NAD. LUNGS: Clear to auscultation bilaterally. No W/R/R. CARDIOVASCULAR: Regular rate and rhythm. ABDOMEN: Soft, non-tender and non-distended. BS normoactive x 4 quad. EXTREMITIES: RUE edema noted. 1+ edema in b/l LE. Non-tender. Peripheral pulses +2/4. NEUROLOGIC: A&Ox1 (self), garbled/nonsensical speech. No gross focal neuro deficits. PSYCHIATRIC: Cooperative. Appropriate mood and affect. SKIN: Warm, dry, intact. No rashes or lesions. Results & Data Results & Data ([facility]) Vital Signs (Past 12 Hours) Vital Signs Temp Pulse Pulse Resp BP BP Pulse Ox 08/28/21 14:52 37.1 C 95 H 18 112/66 94 08/28/21 09:57 89 08/28/21 07:34 36.7 C 84 18 108/69 97 08/28/21 06:32 36.7 C 85 18 108/69 96 08/28/21 05:39 36.6 C 87 22 115/70 98 08/28/21 04:39 36.9 C 85 16 116/72 95 Laboratory Results 08/28/21 07:03 08/28/21 07:03 Diagnostic Findings Brain MRI 08/27/21 16:26 MR brain wo con HISTORY: 76 years-old Female FUO, encephalopathy acute strokelike symptoms COMPARISON: Head CT 08/25/2021 TECHNIQUE: Multiplanar multisequence MRI of the brain was obtained without the use of IV contrast. FINDINGS: Motion degraded exam. There is a 6 cm focus of increased diffusion-weighted signal within the right parietal lobe on image 17 series 4 which demonstrates intermediate signal on ADC map and mildly increased T2/FLAIR signal. No acute or subacute territorial infarct. Midline structures are unremarkable. Partially empty sella. Degenerative changes of the imaged cervical spine. Age-related involutional changes. Extensive and confluent T2/FLAIR hyperintense foci throughout the white matter are suggestive of chronic microvascular ischemic disease. Encephalomalacia and gliosis within the right frontal lobe is suggestive of a chronic infarct. The cerebral venous sinuses and major arterial flow voids appear patent. Bilateral mastoid effusions with mild mucosal thickening of the paranasal sinuses. The skull and soft tissues are unremarkable. Prior bilateral lens replacement. IMPRESSION: 1. Motion degraded exam. 2. 6 mm focus of restricted diffusion within the right parietal lobe is suggestive of an acute versus subacute lacunar infarct. 3. Chronic right frontal lobe infarct 4. Involutional changes with chronic microvascular ischemic disease. ACT 112: Negative or not required by law. The above report was generated using voice recognition software. It may contain grammatical, syntax or spelling errors. Electronically signed by: Regan Whitt M.D. 08/28/2021 7:52 AM Liver Ultrasound 08/27/21 16:26 US liver HISTORY: 76 years-old Female FUO acute right upper quadrant abdominal pain COMPARISON: CT abdomen and pelvis 08/27/2021 TECHNIQUE: Multiple real-time sonographic images of the abdominal right upper quadrant were obtained assessing grayscale appearance and color flow FINDINGS: The visualized pancreas is unremarkable. The liver measures up to 19.5 cm in length. No hepatic mass identified. Study is limited secondary to patient body habitus. Mildly distended gallbladder with possible biliary sludge. No cholelithiasis, gallbladder wall thickening or pericholecystic fluid. Normal common bile duct, 7 mm. The imaged right kidney is unremarkable without hydronephrosis. IMPRESSION: 1. No cholelithiasis or sonographic evidence of acute cholecystitis. 2. No biliary ductal dilation. ACT 112: Negative or not required by law. The above report was generated using voice recognition software. It may contain grammatical, syntax or spelling errors. Electronically signed by: Regan Whitt M.D. 08/28/2021 6:48 AM Abdomen/Pelvis CT 08/27/21 18:20 CT SCAN OF THE ABDOMEN AND PELVIS WITHOUT IV CONTRAST CLINICAL HISTORY: Anemia. COMPARISON STUDY: Abdominal CT dated 08/25/2021. TECHNIQUE: CT scan of the abdomen and pelvis is performed from the lung bases to the proximal femora. Images are reviewed in the axial, sagittal, and coronal planes. IV contrast was not administered for this examination. Note that the examination was performed in significantly suboptimal fashion without oral and IV contrast. There is motion artifact, as well as streak artifact from the arms which could not be elevated above the abdomen. A dose lowering technique was utilized adhering to the principles of ALARA. CT DOSE: 1759.01 mGy.cm FINDINGS: Lung bases: The heart is top normal in size and without pericardial effusion. The coronary arteries are densely calcified. There is a moderate to large hiatal hernia. There are small to moderate pleural effusions with dense bibasilar consolidation. Liver: The unenhanced liver is mildly enlarged measuring 18.3 cm in length. The liver is otherwise normal in contour and attenuation. There is no intrahepatic biliary ductal dilatation. Gallbladder: Gallstones are suspected. There is no CT evidence of acute cholecystitis. Spleen: Normal in size and attenuation. Pancreas: The unenhanced pancreas is atrophic and grossly unremarkable. Adrenal glands: Unremarkable. Kidneys: The unenhanced kidneys demonstrate cortical atrophy and are without hydronephrosis. There are no renal calculi identified. There is no evidence of contour deforming renal mass lesion. There is slightly asymmetric left-sided perinephric stranding. Abdominal vasculature: The abdominal aorta is normal in course and caliber. Bowel: There is mild to moderate diverticulosis of left colon without CT evid ence of acute diverticulitis. No bowel obstruction is seen. Liquid stool is noted throughout the colon. The appendix is not visualized. Peritoneum/retroperitoneum: No retroperitoneal hemorrhage is identified. No intraperitoneal free air is seen and there is no abdominal ascites. There is a fat-containing umbilical hernia. Lymphadenopathy: None. Pelvic viscera: The bladder is decompressed and a Rollins catheter and not well evaluated. The uterus is surgically absent. No adnexal lesion is seen. Asymmetric soft tissue edema is noted in the right upper thigh as compared to left. Surgical clips are noted in the left groin. Skeletal structures: The skeletal structures are osteopenic. There is moderate to advanced lumbosacral spondylosis. No lytic or blastic lesions are seen. There are healed left pubic ring fractures. IMPRESSION: 1. Suboptimal examination without oral and IV contrast. The Examination is also degraded by streak and motion. 2. Small to moderate pleural effusions with dependent consolidation. This is similar to previous. 3. Moderate to large hiatal hernia. 4. There is body wall edema with asymmetric soft tissue edema in the right upper thigh as compared to the left. Clinical correlation will be required. 5. There is asymmetric left-sided perinephric stranding. Correlate with clinical findings and urinalysis. 6. Suspect cholelithiasis. 7. Liquid stool is seen throughout the colon. Correlate clinically for evidence of a diarrheal illness. 8. Additional findings as above. ACT 112: Negative or not required by law. Electronically signed by: Shawn Nunez M.D. 08/27/2021 7:40 PM Chest Ultrasound 08/28/21 07:00 US effusion-chest/mediastinum CLINICAL HISTORY: Pleural effusions. Follow-up. COMPARISON STUDY: Abdomen and pelvis CT 08/27/2021. FINDINGS: Small bilateral pleural effusions measuring 186 cc on the right and 151 cc and the left. IMPRESSION: Small bilateral pleural effusions as above. ACT 112: Negative or not required by law. Electronically signed by: Solomon Serrato M.D. 08/28/2021 8:39 AM Carotid Doppler Study 08/28/21 09:32 BILATERAL CAROTID DOPPLER STUDY HISTORY: Right parietal stroke. COMPARISON: None. TECHNIQUE: Real-time, grayscale, and color Doppler sonography of the carotid arteries was performed. Imaging reviewed in the transverse and longitudinal planes. All measurements were calculated based on NASCET criteria. FINDINGS: Antegrade flow is seen in the bilateral vertebral arteries. A small focus of calcified plaque within the right proximal internal carotid artery. The peak systolic velocity within the right ICA is 61 cm/s. The right systolic ratio is 0.9. The peak systolic velocity within the left ICA is 65 cm/s. The left systolic ratio is 0.9. IMPRESSION: No hemodynamically significant stenosis seen within the carotid arteries. ACT 112: Negative or not required by law. Electronically signed by: Solomon Serrato M.D. 08/28/2021 11:21 AM PG Care Time/CCT Total # of Minutes Spent Total Time Spent with Patient: Total time spent is greater than 50% in coordination of care (as documented) at patient's floor/unit and/or counseling patient: Coding Level of Care Code 41716 Subseq Hosp Care Lvl 3 Diagnoses Acute UTI N39.0 Pneumonia J18.9 Encephalopathy G93.40 SHAMEKA (acute kidney injury) N17.9 Elevated troponin R77.8 Hypomagnesemia E83.42 Right arm pain M79.601 Central line complication T82.9XXA History of DVT (deep vein thrombosis) Z86.718 Hypertension I10 Melanoma C43.9 Cerebrovascular accident (CVA) I63.9 Fever of unknown origin R50.9
[2021-08-28] MEDS ORDERED: ACETAMINOPHEN 325 MG TAB PO PRN (17:44)
[2021-08-28] MEDS ORDERED: methylPREDNISolone 125 MG in SYRINGE 0 ML IV STA (17:46)
--- NOTE | 2021-08-28 17:48 | XRay Report ---
XR chest 1V portable CLINICAL HISTORY: f/u pna TECHNIQUE: Single frontal radiograph of the chest was obtained. Comparison: Comparison is made to chest radiograph 08/25/2021 FINDINGS: A port catheter is seen. The cardiomediastinal silhouette is normal. Prominence and cephalization of the vasculature is seen. Lungs are underinflated. A left retrocardiac opacity is seen. There is likel y a faint right lower lung opacity as well. No evidence of pleural effusion or pneumothorax. IMPRESSION: Bilateral lower lung airspace opacities may represent atelectasis, pneumonia, and/or aspiration. Mild pulmonary edema. ACT 112: Negative or not required by law. Electronically signed by: Salomón Guerrero M.D. 08/28/2021 5:47 PM
[2021-08-28] MEDS: FAMOTIDINE 20 MG in SYRINGE 3 ML IV SCH (20:26)
--- NOTE | 2021-08-28 21:48 | XCELERA ---
[id number]
[2021-08-29] MEDS: PIPERACILLIN/TAZOBACTAM 4.5 GM in DEXTROSE 5% 100 ML IV SCH ×3 (05:22→21:19)
[2021-08-29] MEDS: methylPREDNISolone 60 MG in SYRINGE 0 ML IV SCH ×4 (05:24→22:53)
[2021-08-29] MEDS: CLOTRIMAZOLE 10 MG TROCHE BUCCAL SCH ×7 (05:38→22:53)
[2021-08-29] MEDS: ASPIRIN 81 MG ECTAB PO SCH (08:09)
[2021-08-29] MEDS: ENOXAPARIN 100 MG/1ML SYR SQ SCH ×2 (08:10→21:18)
[2021-08-29 08:12] LABS: Basophils # (auto) 0.03 K/uL (0-0.2); Basophils % (auto) 0.3 %; Eosinophils # (auto) 0.02 K/uL (0-0.5); Eosinophils % (auto) 0.2 %; Hematocrit (blood only) 40.6 % (37-47); Hemoglobin 12.8 g/dL (12.0-16.0); Immature Granulocytes # (auto) 0.05 K/uL (0.00-0.02); Immature Granulocytes % (auto) 0.5 %; Lymphocytes # (auto) 0.97 K/uL (1.2-3.4); Lymphocytes % (auto) 9.5 %; Mean Corpuscular Hemoglobin 27.9 pg (25-34); Mean Corpuscular Hgb Conc 31.5 g/dL (32-36); Mean Corpuscular Volume 88.5 fL (80-100); Mean Platelet Volume 9.5 fL (7.4-10.4); Monocytes # (auto) 0.11 K/uL (0.11-0.59); Monocytes % (auto) 1.1 %; Neutrophils # (auto) 8.98 K/uL (1.4-6.5); Neutrophils % (auto) 88.4 %; Platelet Count 539 K/uL (130-400); RDW Coefficient of Variation 16.1 % (11.5-14.5); RDW Standard Deviation 52.1 fL (36.4-46.3); Red Blood Count 4.59 M/uL (4.2-5.4); White Blood Count 10.16 K/uL (4.8-10.8)
--- NOTE | 2021-08-29 08:38 | Nephrology Progress Note ---
Date of Service August 29, 2021 Assessment & Plan (1) Chronic kidney disease, stage III (moderate): Plan: * CKD stage G3b/A1. Her baseline Cr has been 1.0 - 1.2 dating back to 01/05. Urinalysis suggestive of infection. Culture is negative. Abdominal CT reveals bilateral cortical thinning suggestive of microvascular disease * UPCR 0.5 * Urine microscopy w/ budding yeast. Recommend changing out Rollins catheter * Monitor PRP * No further Nephrology evaluation indicated. Will sign off. Please call if further assistance is needed (2) Fever of unknown origin: Plan: * 08/27 blood culture: one of two samples w/ G+ cocci in clusters. Surgery is planning to remove nonfunctional a-port * Testing for tick borne illness, viral infection and bacterial sepsis has been negative * Urine microscopy is positive for budding yeast. Recommend changing out Rollins catheter * Recommend consolidating antibiotic therapy. Consider consultation w/ ID regarding FUO Admission and Anticipated Discharge Date Admission Date: August 25, 2021 Subjective Ms. Newman was evaluated in her hospital room this morning. She was alert but oriented to self only and easily agitated Review of Systems Review of Systems: Unobtainable due to cognitive status Physical Exam Constitutional: not in distress Eyes: PERRL, conjunctivae normal, anicteric sclerae ENMT: external ear and nose normal, oropharynx normal Neck: trachea midline, no thyromegaly Respiratory: normal respiratory effort, lungs clear to auscultation Cardiovascular: Rate/Rhythm: regular rate and regular rhythm Extremities: + edema (trace LE swelling) Gastrointestinal (Abdomen): normal bowel sounds, soft, nontender, no hepatosplenomegaly Skin: no rashes, warm and dry Neurologic: awake and + confused Results & Data ([facility]) Vital Signs (Past 12 Hours) Vital Signs Temp Pulse Pulse Resp BP Pulse Ox 08/29/21 07:51 36.5 C 84 16 123/82 92 08/29/21 03:37 36.4 C L 78 20 116/70 92 08/29/21 00:10 92 H 18 129/70 92 08/28/21 23:51 81 08/28/21 23:40 36.3 C L 08/28/21 23:17 37.0 C 80 20 109/60 91 Laboratory Results Laboratory Tests 05/12/22 05/12/22 05/13/22 13:40 13:40 07:45 WBC Hgb Hct Plt Count Sodium 141 Potassium 4.1 D Chloride 111 H Carbon Dioxide 22 BUN 22 Creatinine 1.23 H Glucose 160 H Urine Appearance Turbid A Ur Specific [place] 1.035 H Urine Protein 2+ H Urine Ketones Trace H Urine Blood 3+ H Urine Nitrite Positive A Ur Leukocyte Esterase 1+ H Urine WBC (Auto) >30 H Urine Yeast Budding w/ Hyphae A Protein/Creatinin Ratio 0.5 H 08/29/21 07:45 WBC 10.16 Hgb 12.8 Hct 40.6 Plt Count 539 H Sodium Potassium Chloride Carbon Dioxide BUN Creatinine Glucose Urine Appearance Ur Specific [place] Urine Protein Urine Ketones Urine Blood Urine Nitrite Ur Leukocyte Esterase Urine WBC (Auto) Urine Yeast Protein/Creatinin Ratio PG Care Time/CCT Total # of Minutes Spent Total Time Spent with Patient: Total time spent is greater than 50% in coordination of care (as documented) at patient's floor/unit and/or counseling patient: Coding Level of Care Code 38447 Subseq Hosp Care Lvl 3 Diagnoses Chronic kidney disease, stage III (moderate) N18.30 Fever of unknown origin R50.9
[2021-08-29 08:45] LABS: Albumin Globulin Ratio 0.8 (0.9-2); Albumin Level 2.8 gm/dl (3.4-5.0); BUN Creatinine Ratio 17.9 (10-20); Bilirubin,Total 0.5 mg/dl (0.2-1.0); C Reactive Protein 20.33 mg/dl (0-0.5); Calcium 9.1 mg/dl (8.5-10.1); Creatinine Clr Calc Pharmacy 48.3 ml/min; Est GFR (Non-African American) 42.3 ml/min; Globulin 3.5 gm/dl (2.5-4.0); Potassium 4.1 mmol/L (3.5-5.1); Total Protein 6.3 gm/dl (6.0-8.3)
[2021-08-29] MEDS ORDERED: FUROSEMIDE INJ 20 MG/2 ML VIAL IV ONE (10:38)
[2021-08-29] MEDS ORDERED: NYSTATIN POWDER 15GM BTL EXT PRN (12:44)
[2021-08-29] MEDS: DAPTOmycin 500 MG in SYRINGE 0 ML IV SCH (14:40)
--- NOTE | 2021-08-29 15:21 | Hospitalist Progress Note ---
Date of Service August 29, 2021 Assessment & Plan (1) Cerebrovascular accident (CVA): Plan: - MRI brain revealing R parietal acute/subacute infarct - Case d/w neurology who felt that a formal consult was not needed - Obtained Echocardiogram: normal lv size w/ hyperdynamic systolic fxn, EF >70%, No RWMA. Moderate concentric LVH. Moderate mitral annular calcification. Normal RVSP. - ASA and Lipitor advised, holding Lipitor as she is empirically on Dapto empirically - Speech therapy eval re-ordered d/t coughing spell while drinking water and new dx of stroke; appreciate assistance * Diet ordered on 08/29, required thickened liquids but upgraded today to thin liquids per ST note * Will require repeat VFSS ideally prior to d/c - PT/OT eval attempted, pt not able to participate, hopefully will be able to participate more over the weekend as she continues to improve (2) Fever of unknown origin: Plan: - presented with SIRS criteria including tachycardia (124), fever (101.4), tachypnea (27), and marginal BP of 99/50 - Sources of infection include: grossly infected urine (cloudy, nitrite and leukocyte esterase+), urine cx pending + radiologic evidence of PNA with hypoxia thus meeting sepsis criteria - Also concerned regarding existing mediport which could also is another potential source of infection - Procalcitonin elevated at 2.25 on admission and uptrended 3.58, now down to 1.65 - CRP elevated at 27.70-->20.3 - Treated upfront with aggressive IVF hydration - APAP as needed for fever, would not utilize unless temp is greater than or equal to 38C - Holding antihypertensives d/t marginal BP (which has since improved w/ hydration) - RUQ ultrasound revealed no evidence of acute/chronic cholecystitis as possible source - Blood cultures: one out of the total 8 tubes collected is positive for GPC in clusters (likely staph) -- suspect that this is a contaminant - Recently hospitalized 08/15-08/21 with similar presentation w/o obvious source identified; however, was treated empirically w/ Doxy for possible tick-borne illness - Currently she is empirically on the following antibiotic therapy: Zosyn, Levaquin, and Daptomycin * Zosyn covering for HAP/Aspiration PNA (also providing pseudomonal coverage given recent hospitalization with d/c to SNF) * Levaquin adds double antipseudomonal coverage * Daptomycin covering for possible MRSA (again d/t recent hospitalization and d/c to SNF). Of note, her MRSA swab was negative on admission and repeat is pending, thus she was changed from Zyvox to Daptomycin as MRSA pneumonia is not felt be likely - Pt now with another temp spike of 38.2C -- really suspicious that her immunotherapy (Ketruda) could be causing systemic inflammation * Will start on steroids and monitor response -- dose of Solumedrol 125mg IV x1 given 08/28 and now getting 60mg IV q8h, taper to q12h on 08/30 and transition to oral on 08/31 * Repeat blood cultures again today d/t another fever spike for completeness - Inflammatory markers drawn today trending down, repeat in 48 hours (3) Acute UTI: Plan: - UA appears grossly infected (cloudy, leukocyte esterase and nitrite positive). Perhaps culture skewed given oral Doxycycline on board CHIEF RADIATION THERAPIST - CT of the abdomen and pelvis without pyelonephrosis/hydronephrosis/obstructive uropathy - Urine cx with growth of 2 different types of yeast, 1st identified is marsha albicans, second is yet to be identified * Will start Fluconazole 200mg daily, per UTD recommendations, needs 14 days total per literature * Did call micro and ask that it be sent out for sensitivities (4) Pneumonia: Plan: - CT showing small pleural effusions bilaterally with bibasilar infiltrates (new in comparison to CT done on 08/17/2021) - Continue IV Zosyn (which should provide adequate antipseudomonal coverage given recent hospital stay). - in addition, MBS done during recent stay and there was concern for silent aspiration at that time. Zosyn should provide adequate gram-negative and anaerobic coverage. * Patient has been n.p.o. up until this point given her obtunded state and need for airway protection * Although MBS does show concern for silent aspiration, this was discussed w/ speech therapy (Vandana Sherwood) who adamantly reports patient does not have aspiration concerns * Now that patient is more awake and alert, will initiate oral intake at recommendations of ST (full liquid. Advance to pured and minced/moist as tolerated) * Pt made NPO by general surgery d/t planned removal of mediport but this was an error as general surgery plans to remove this no sooner than Wednesday. But she was kept NPO d/t aspiration concerns. ST notified. * ST identified on 08/28 that she needed thickened liquids and pureed diet, seen 08/29 and due to her being more awake/alert, pt able to tolerate diet advancement and no longer requires thickened liquids - MRSA nasal swab negative on 08/15 and again 08/25 which is why she was not initially started on MRSA coverage which has since been added on 08/27 - Continue supplemental oxygen to maintain a pulse ox of >90 % - continue nebulized treatments--> change from scheduled to prn - Sputum culture ordered (but uncollected as unable to expectorate) - Did discuss CODE STATUS with sisters on 08/25 Patient is a full code - Repeat CXR done 08/28 demonstrated mild pulmonary edema and b/l basilar consolidations, dose of IV Lasix 20mgx1 given (5) Encephalopathy: Plan: - Metabolic Encephalopathy (from PNA/UTI/CVA) - Showing favorable response. Although she remains excessively somnolent, she is no longer obtunded. She is able to converse although remains slightly nonsensical - CT of the head done upon arrival showing no acute intracranial process. - Given her fever and sepsis syndrome presentation, along with favorable response with IV antibioticsdo not need MRI or further brain imaging at this time - Oral medications and diet initially held d/t obtunded state but has since been reordered as she is more awake/alert - Improving (6) SHAMEKA (acute kidney injury): Plan: - Creatinine elevated at 1.48 upon arrival (with creatinine clearance of 39.4). - Creatinine was 0.86 on 08/21 upon discharge - improved with adequate IV hydration - Overnight (08/26-08/27) there was concern given her limited urinary output and subtle edema. Her IVF were stopped and she was given Lasix IV. Creatinine uptrending slightly - I believe that poor urine output was likely from SHAMEKA (and perhaps ATN) from sepsis and hypoperfusion given her hypotension. Prior to Lasix, she was not oliguric. - WOULD REFRAIN FROM GIVING ADDITIONAL LASIX AT THIS TIME - she does have mild edema of the LE but is not in fulminant CHF/volume overload). This is likely given her low albumin of 2.2 (will start oral supplement) - If able to hydrate orally, will encourage this. If not, will place back on Normosol at 60cc/hr with close monitoring of labs - Capped IVF on 08/28, creat stable 1.2 (7) Elevated troponin: Plan: - HS trop 18.0 without acute EKG changes - FU trop downtrending (15.1) and repeat EKG without acute changes - suspect elevated from myocardial demand ischemia rather than unstable plaque (8) Hypomagnesemia: Plan: - replaced/resolved (9) Right arm pain: Plan: - suspect was a mild/developing cellulitis that now seems to be improving - initially, unable to vocalize pain but nursing report patient yelling out when arm is touched - venous doppler done despite being on Eliquis (as patient with known metastatic Ca): negative for DVT - erythema, edema improving. 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 Received Cathflo but line still seems nonfunctional - d/w general surgery, will plan to remove line on Wednesday (11) History of DVT (deep vein thrombosis): Plan: - On Eliquis chronicallyunable to tolerate oral medication given obtunded state - For now, utilizing Lovenox - Right upper extremity venous Doppler shows no evidence of DVT - Keeping on Lovenox as it will be easier to stop prior to her Mediport removal on Wednesday - Can then resume Eliquis upon d/c (12) Hypertension: Plan: - Hold oral antihypertensive agents given hypotension/sepsis syndrome (including amlodipine and metoprolol) - 08/27: BP improved but meds kept on hold - Today 08/29, most recent BP 130/78, could consider resuming antihypertensive meds tomorrow (13) Melanoma: Plan: - with metastasis - on Ketruda infusions every 3 weeks - mediport in place--semi-functional as it can be accessed for IVF but no blood draws Plan: spoke with sisters on 08/29 at bedside--code status: full code (per pt's prior wishes which were made prior to her cancer diagnosis). Her sisters are aware that her manager long term care prognosis is poor given her metastatic melanoma and back to back hospitalizations and now with new CVA. They would like to obtain medical power of assistant prosecuting attorney legally but have not had a chance to do so prior to her becoming ill. Sister states that she does have two sons that live in [place] and are not involved with the patient. Her sisters are her primary caretakers. They understand that pt MAY require an alternative living arrangement dependent upon how she progresses at [facility] for rehab. They also understand that in her current state, she is not fit to make any legal decisions appointing a POA at this time. For now, will continue current treatment with plans to de-escalate antibiotics tomorrow (as she will have received broadened abx coverage for over 48 hrs). Downgrade to med/surg with tele. Continue tapering steroids with plans to transition to oral Prednisone taper. Will need to hold Lovenox on 08/31 PM dose and AM dose on 09/01 for OR to remove mediport. Needs repeat VFSS on 09/01 ideally prior to discharge. Continue PT/OT services, hopeful that patient can participate with therapy over the weekend. Repeat labs ordered for tomorrow AM. Plan to be d/w Dr. Gibson. Admission and Anticipated Discharge Date Admission Date: August 25, 2021 Subjective Patient was seen on daily rounds this morning. She is resting comfortably in bed, is pleasantly confused but can follow some simple commands. Review of Systems Review of Systems: Although patient awake/alert, her full ROS remain unobtainable due to confusion Physical Exam Physical Exam: GENERAL: 76 yo well-developed, well-nourished elderly WF. NAD. LUNGS: Diminished in bases bilaterally CARDIOVASCULAR: Regular rate and rhythm. ABDOMEN: Soft, non-tender and non-distended. BS normoactive x 4 quad. EXTREMITIES: RUE edema noted. 1+ edema in b/l LE. Non-tender. Peripheral pulses +2/4. NEUROLOGIC: A&Ox1 (self), garbled/nonsensical speech. No gross focal neuro deficits. PSYCHIATRIC: Cooperative. Appropriate mood and affect. SKIN: Warm, dry, intact. Groin folds are extremely excoriated and breakdown noted on left buttocks Results & Data Results & Data ([facility]) Vital Signs (Past 12 Hours) Vital Signs Temp Pulse Pulse Resp BP BP Pulse Ox 08/29/21 14:53 36.4 C L 84 16 130/78 92 08/29/21 11:40 36.4 C L 86 15 125/80 93 08/29/21 08:59 91 H 08/29/21 07:51 36.5 C 84 16 123/82 92 08/29/21 03:37 36.4 C L 78 20 116/70 92 Laboratory Results 08/29/21 07:45 08/29/21 07:45 PG Care Time/CCT Total # of Minutes Spent Total Time Spent with Patient: Total time spent is greater than 50% in coordination of care (as documented) at patient's floor/unit and/or counseling patient: Coding Level of Care Code 21253 Subseq Hosp Care Lvl 3 Diagnoses Cerebrovascular accident (CVA) I63.9 Fever of unknown origin R50.9 Acute UTI N39.0 Pneumonia J18.9 Encephalopathy G93.40 SHAMEKA (acute kidney injury) N17.9 Elevated troponin R77.8 Hypomagnesemia E83.42 Right arm pain M79.601 Central line complication T82.9XXA History of DVT (deep vein thrombosis) Z86.718 Hypertension I10 Melanoma C43.9
[2021-08-29] MEDS: FLUCONAZOLE 200 MG/100 ML BAG IV SCH (16:14)
[2021-08-29] MEDS: levoFLOXacin/D5W 750 MG/150 ML BAG IV SCH (16:53)
[2021-08-29] MEDS ORDERED: APIXABAN 5 MG TABLET PO SCH (21:00)
[2021-08-29] MEDS: FAMOTIDINE 20 MG in SYRINGE 3 ML IV SCH (21:19)
[2021-08-30] MEDS: PIPERACILLIN/TAZOBACTAM 4.5 GM in DEXTROSE 5% 100 ML IV SCH ×3 (05:34→21:25)
[2021-08-30] MEDS: methylPREDNISolone 60 MG in SYRINGE 0 ML IV SCH (05:34)
--- NOTE | 2021-08-30 05:47 | Surgery Progress Note ---
Date of Service August 30, 2021 Assessment & Plan (1) Fever of unknown origin: Plan: There is concern that patient's fever may be potentially derived from a infected a port. The a port in question also has not been working properly. The patient's labs were reviewed and she has had blood cultures on 08/25/2021 x 4 which are all negative. Blood cultures x2 have been drawn on 08/27/2021 with 1 positive for gram-positive cocci. Repeat blood cultures were drawn x2 on 03/2022 and are negative to date. Would recommend continuing antibiotics. Patient is currently receiving Zosyn, Levaquin, and daptomycin. Plan is for patient to have her a port removed tentatively on 09/01/2021. Prior to this procedure her evening dose of Lovenox on 08/31/2021 and her a.m. dose on 09/01/2021 should be held. Admission and Anticipated Discharge Date Admission Date: August 25, 2021 Subjective Patient is resting in bed. She has baseline confusion which limits the subjective portion of this note. I discussed the case with the welder 2nd shift RN and notes that the patient has not had any fevers over the last shift. Review of Systems Constitutional: no fever Physical Exam Physical Exam: Right subclavian a port in place. There do not appear to be pain with palpation of this area. Results & Data ([facility]) Vital Signs (Past 12 Hours) Vital Signs Temp Pulse Pulse Resp BP Pulse Ox 08/30/21 01:25 83 08/29/21 23:34 36.6 C 94 H 20 128/78 92 08/29/21 19:00 89 08/29/21 18:40 36.8 C 89 22 158/76 H 94 PG Care Time/CCT Total # of Minutes Spent Total Time Spent with Patient: Total time spent is greater than 50% in coordination of care (as documented) at patient's floor/unit and/or counseling patient: Coding Level of Care Code 21529 Subseq Hosp Care Lvl 1 Diagnoses Fever of unknown origin R50.9
[2021-08-30] MEDS: CLOTRIMAZOLE 10 MG TROCHE BUCCAL SCH ×6 (05:59→22:58)
[2021-08-30 06:19] LABS: Basophils # (auto) 0.02 K/uL (0-0.2); Basophils % (auto) 0.2 %; Hematocrit (blood only) 36.2 % (37-47); Hemoglobin 11.8 g/dL (12.0-16.0); Immature Granulocytes # (auto) 0.11 K/uL (0.00-0.02); Immature Granulocytes % (auto) 0.9 %; Lymphocytes # (auto) 1.34 K/uL (1.2-3.4); Lymphocytes % (auto) 11.3 %; Mean Corpuscular Hemoglobin 29.1 pg (25-34); Mean Corpuscular Hgb Conc 32.6 g/dL (32-36); Mean Corpuscular Volume 89.2 fL (80-100); Mean Platelet Volume 9.4 fL (7.4-10.4); Monocytes # (auto) 0.46 K/uL (0.11-0.59); Monocytes % (auto) 3.9 %; Neutrophils # (auto) 9.93 K/uL (1.4-6.5); Neutrophils % (auto) 83.7 %; Platelet Count 558 K/uL (130-400); RDW Standard Deviation 52.4 fL (36.4-46.3); Red Blood Count 4.06 M/uL (4.2-5.4); White Blood Count 11.86 K/uL (4.8-10.8)
[2021-08-30 06:37] LABS: BUN Creatinine Ratio 24.8 (10-20); Creatinine Clr Calc Pharmacy 54.2 ml/min; Est GFR (African American) 56.7 ml/min; Est GFR (Non-African American) 48.9 ml/min; Magnesium 1.7 mg/dl (1.7-2.4); Potassium 3.6 mmol/L (3.5-5.1)
[2021-08-30] MEDS: ASPIRIN 81 MG ECTAB PO SCH (09:02)
[2021-08-30] MEDS: ENOXAPARIN 100 MG/1ML SYR SQ SCH ×2 (09:04→21:01)
[2021-08-30] MEDS: FLUCONAZOLE 200 MG/100 ML BAG IV SCH (09:04)
--- NOTE | 2021-08-30 09:14 | Hospitalist Progress Note ---
Date of Service August 30, 2021 Assessment & Plan (1) Cerebrovascular accident (CVA): Plan: - MRI brain revealing R parietal acute/subacute infarct - Case d/w neurology who felt that a formal consult was not needed - Obtained Echocardiogram: normal lv size w/ hyperdynamic systolic fxn, EF >70%, No RWMA. Moderate concentric LVH. Moderate mitral annular calcification. Normal RVSP. - ASA and Lipitor advised, holding Lipitor as she is empirically on Dapto empirically - Speech therapy eval re-ordered d/t coughing spell while drinking water and new dx of stroke; appreciate assistance * Diet ordered on 08/29, required thickened liquids but upgraded today to thin liquids per ST note * Will require repeat VFSS ideally prior to d/c - PT/OT eval attempted, pt not able to participate, hopefully will be able to participate more over the weekend as she continues to improve (2) Fever of unknown origin: Plan: - presented with SIRS criteria including tachycardia (124), fever (101.4), tachypnea (27), and marginal BP of 99/50 - Sources of infection include: grossly infected urine (cloudy, nitrite and leukocyte esterase+), urine cx pending + radiologic evidence of PNA with hypoxia thus meeting sepsis criteria - Also concerned regarding existing mediport which could also is another potential source of infection - Procalcitonin elevated at 2.25 on admission and uptrended 3.58, now down to 1.65 - CRP elevated at 27.70-->20.3 - Treated upfront with aggressive IVF hydration - APAP as needed for fever, would not utilize unless temp is greater than or equal to 38C - Holding antihypertensives d/t marginal BP (which has since improved w/ hydration) - RUQ ultrasound revealed no evidence of acute/chronic cholecystitis as possible source - Blood cultures: one out of the total 8 tubes collected is positive for GPC in clusters (likely staph) -- suspect that this is a contaminant - Recently hospitalized 08/15-08/21 with similar presentation w/o obvious source identified; however, was treated empirically w/ Doxy for possible tick-borne illness - Was initially hospitalized with empiric Zosyn but despite greater than 48 hours of this, was febrile, tachycardic and hypotensive. Antibiotic coverage broadened to Zosyn + Levaquin + linezolid * Zosyn covering for HAP/Aspiration PNA (also providing pseudomonal coverage given recent hospitalization with d/c to SNF) * Levaquin adds double antipseudomonal coverage * Pharmacy suggested transition of linezolid to daptomycin given negative MRSA nasal swab. Although I agree that it is unlikely that she has MRSA PNA given negative MRSA screen, daptomycin does not provide adequate lung coverage. In addition, patient would benefit from 10 to 14 days of antibiotics. Utilizing daptomycin really limits oral options as she failed doxycycline. * Did discuss antibiotic regimen with pharmacy. Thought was to de-escalate to Levaquin/linezolid +/- Flagyl (for anaerobic coverage given concern for aspiration). Pharmacy does not want linezolid given unless recommended by infectious disease. - Fungal blood cultures ordered and pending - Will consult ID. Appreciate assistance -Patient did have a fever spike on 08/28 (right around 48-hours of broadened coverage) * At this time, it was uncertain if her Keytruda was potentially causing an inflammatory response for which IV steroids were initiated (however would fa vor infectious process given her elevated procalcitonin) * Again, not certain that her Mediport is not infected (have not been able to draw cultures from the line). Plan is for removal on Wednesday * Inflammatory markers have down trended. De-escalate IV steroids with conversion to oral tomorrow (3) Acute UTI: Plan: - UA appears grossly infected (cloudy, leukocyte esterase and nitrite positive). Perhaps culture skewed given oral Doxycycline on board [employer] - CT of the abdomen and pelvis without pyelonephrosis/hydronephrosis/obstructive uropathy - Urine cx with growth of 2 different types of yeast, 1st identified is marsah albicans, second is yet to be identified * Empirically started on fluconazole 200mg daily, per UTD recommendations, needs 14 days total per literature * Did call micro and ask that it be sent out for sensitivities - fungal BC ordered and pending (4) Pneumonia: Plan: - CT showing small pleural effusions bilaterally with bibasilar infiltrates (new in comparison to CT done on 08/17/2021) - Continue IV Zosyn (which should provide adequate antipseudomonal coverage given recent hospital stay). - in addition, MBS done during recent stay and there was concern for silent aspiration at that time. Zosyn should provide adequate gram-negative and anaerobic coverage. * Patient n.p.o. upfront given her obtunded state and need for airway protection * Although MBS does show concern for silent aspiration, this was discussed w/ speech therapy (Vandana Sherwood) who adamantly reports patient does not have aspiration concerns * 08/27: patient became more A&O-was initiated full liquid. Advance to pured and minced/moist as tolerated at discretion of ST * Concerns from staff regarding ability to eat and signs of aspiration for which speech therapy was asked to reevaluate the patient (especially given her subacute CVA) * Assessed by ST on 08/29 with recommendations for minced and moist diet, thin liquids, aspiration precautions and planned VFSS on 09/01 or 09/02 - MRSA nasal swab negative on 08/15 and again 08/25 which is why she was not initially started on MRSA coverage (as also on doxycycline [employer]). MRSA coverage added on 08/27 given persistent fevers and sepsis syndrome despite IV antibiotics - Continue supplemental oxygen to maintain a pulse ox of >90 % - continue nebulized treatments prn - Sputum culture ordered (but uncollected as unable to expectorate) - Did discuss CODE STATUS with sisters on 08/25 Patient is a full code - IV Lasix given 08/28 and 08/30 given pulmonary edema likely secondary to aggressive fluid resuscitation from sepsis (5) Encephalopathy: Plan: - Metabolic Encephalopathy (from PNA/UTI/CVA) - Showing favorable response. Has been showing favorable response although talk ative and nonsensical at times - obtunded on 08/30 (had been improving up until this point). Repeat COVID in addition to ABG and ammonia level. May have component of hospital acquired delirium at this point - CT of the head done upon arrival showing no acute intracranial process. - MRI showed 6 mm focus of restricted diffusion in the right parietal lobe suggestive of acute versus subacute lacunar infarct--likely contributing (6) SHAMEKA (acute kidney injury): Plan: - Creatinine elevated at 1.48 upon arrival (with creatinine clearance of 39.4). - Creatinine was 0.86 on 08/21 upon discharge - improved with adequate IV hydration - Overnight (08/26-08/27) there was concern given her limited urinary output and subtle edema. Her IVF were stopped and she was given Lasix IV. Creatinine uptrending slightly - I believe that poor urine output was likely from SHAMEKA (and perhaps ATN) from sepsis and hypoperfusion given her hypotension. Prior to Lasix, she was not oliguric. - Creatinine has since improved and is back to baseline with IV hydration which has since been stopped (7) Elevated troponin: Plan: - HS trop 18.0 without acute EKG changes - FU trop downtrending (15.1) and repeat EKG without acute changes - suspect elevated from myocardial demand ischemia rather than unstable plaque (8) Hypomagnesemia: Plan: - replaced/resolved (9) Right arm pain: Plan: - suspect was a mild/developing cellulitis that now seems to be improving - initially, unable to vocalize pain but nursing report patient yelling out when arm is touched - venous doppler done despite being on Eliquis (as patient with known metastatic Ca): negative for DVT - erythema, edema improving. 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 Received Cathflo but line still seems nonfunctional - d/w general surgery, will plan to remove line on Wednesday as nonfunctional line and unable to rule out this being source of infection (11) History of DVT (deep vein thrombosis): Plan: - On Eliquis chronicallyunable to tolerate oral medication given obtunded state - For now, utilizing Lovenox - Right upper extremity venous Doppler shows no evidence of DVT - Keeping on Lovenox as it will be easier to stop prior to her Mediport removal on Wednesday - Can then resume Eliquis upon d/c (12) Hypertension: Plan: - Hold oral antihypertensive agents given hypotension/sepsis syndrome (including amlodipine and metoprolol) - 08/27: BP improved but meds kept on hold - Today 08/30, most recent BP 138/83. Could transition back to oral meds but patient excessively somnolent today thus we will hold off (13) Melanoma: Plan: - with metastasis - on Ketruda infusions every 3 weeks - mediport in place--semi-functional as it can be accessed for IVF but no blood draws - No evidence of cerebral metastasis seen on MRI (14) Sepsis: Plan: - Patient presented with marginal hypotension (99/50), tachycardia (124) fever (101.4), tachypnea (27) - positive sepsis criteria without evidence of shock of multiple organ dysfunction - SOFA=3. - 2/2 to UTI (UA grossly infected although UC showing no growth) and PNA (seen on CT). Also, ? Cellulitis of right arm - BC: NGTD - UC: NGT - SC ordered but remains uncollected as patient unable to expectorate - procal: 2.25 - treated with abx and continue aggressive IV hydration-- Is showing favorable response. BP/HR improved (118/66 & 86) but persistent fevers noted for which antibiotics were broadened - just hospitalized 08/15 through 08/21 with similar presentation but no source of infection identified. All imaging and culture data negative but ESR and CRP elevated- DC'ed to SNF (for rehab) with Doxycycline (which she had been taking) Plan: Patient has been hemodynamically stable and has since defervesced (last fever spike 08/28). Would ideally de-escalate IV antibiotics; however, would appreciate guidance from infectious disease. Patient still febrile despite 48 hours of single agent Zosyn. There is concern for aspiration for which anae robic coverage preferred. Last, patient did not show favorable clinical response until Levaquin/linezolid combination X 48 hours. We will keep current antibiotics with further recommendations per ID. Will need to hold Lovenox on 08/31 PM dose and AM dose on 09/01 for OR to remove mediport. Needs repeat VFSS on 09/01 ideally prior to discharge. Continue PT/OT services, hopeful that patient can participate with therapy over the weekend. Repeat labs ordered for tomorrow AM. Plan to be d/w Dr. Ceballos. Admission and Anticipated Discharge Date Admission Date: August 25, 2021 Subjective Patient is excessively somnolent this morning. Opens her eyes when I am talking to her but quickly falls back to sleep. Per nurse she has been excessively somnolent all morning but she was more awake yesterday. Review of Systems Review of Systems: ROS unobtainable Physical Exam Physical Exam: Exam limited General: Resting comfortably in her hospital bed. Somnolent. Difficult to arouse. Opens her eyes but quickly falls back to sleep HEENT: Head is AT/NC. Buccal mucosa remains very dry. Residual white and black film on the roof of the mouth. Patient with obvious discomfort when mouth assessed Neck: No JVD. Negative hepatojugular reflex Cardiac: RRR Lungs: Breathing comfortably on nasal cannula. Normal respiratory effort. Good air exchange throughout without wheezes, rales or rhonchi Abdomen: Normoactive X4. Soft. Extremities: Trace to +1 pitting edema of the bilateral lower extremity Neuro: Excessively somnolent Results & Data Results & Data ([facility]) Vital Signs (Past 12 Hours) Vital Signs Temp Pulse Pulse Resp BP Pulse Ox 08/30/21 08:19 101 H 08/30/21 06:42 36.8 C 72 18 132/82 91 08/30/21 01:25 83 08/29/21 23:34 36.6 C 94 H 20 128/78 92 Laboratory Results 08/30/21 05:56 08/30/21 05:56 PG Care Time/CCT Total # of Minutes Spent Total Time Spent with Patient: Total time spent is greater than 50% in coordination of care (as documented) at patient's floor/unit and/or counseling patient: Coding Level of Care Code 94261 Subseq Hosp Care Lvl 3 Diagnoses Cerebrovascular accident (CVA) I63.9 Fever of unknown origin R50.9 Acute UTI N39.0 Pneumonia J18.9 Encephalopathy G93.40 SHAMEKA (acute kidney injury) N17.9 Elevated troponin R77.8 Hypomagnesemia E83.42 Right arm pain M79.601 Central line complication T82.9XXA History of DVT (deep vein thrombosis) Z86.718 Hypertension I10 Melanoma C43.9 Sepsis A41.9; R65.20; J96.01 Acute respiratory failure type: with hypoxia Sepsis acute organ dysfunction status: with acute organ dysfunction Sepsis type: sepsis due to unspecified organism Severe sepsis acute organ dysfunction type: acute respiratory failure Severe sepsis shock status: without septic shock (1) Sepsis Acute respiratory failure type: with hypoxia Sepsis acute organ dysfunction status: with acute organ dysfunction Sepsis type: sepsis due to unspecified organism Severe sepsis acute organ dysfunction type: acute respiratory failure Severe sepsis shock status: without septic shock Qualified Code(s): A41.9 - Sepsis, unspecified organism; R65.20 - Severe sepsis without septic shock; J96.01 - Acute respiratory failure with hypoxia
[2021-08-30] MEDS ORDERED: MENTHOL-ZINC OXIDE 360 APPLN/120 GM TUBE EXT PRN (10:10)
[2021-08-30] MEDS: METOPROLOL TARTRATE 25 MG TAB PO SCH ×2 (11:14→21:06)
[2021-08-30] MEDS: MENTHOL-ZINC OXIDE 360 APPLN/120 GM TUBE EXT SCH ×2 (11:15→21:26)
[2021-08-30] MEDS: DAPTOmycin 500 MG in SYRINGE 0 ML IV SCH (13:30)
[2021-08-30] MEDS ORDERED: FUROSEMIDE INJ 20 MG/2 ML VIAL IV ONE (14:45)
[2021-08-30 16:10] LABS: HCO3 ABG 24 mmol/L (19-24); Oxygen Saturation ABG 90.1 % (90-95); PCO2 ABG 33 mmHg (35-46); PO2 ABG 55 mmHg (80-95); pH ABG 7.48 (7.35-7.45)
[2021-08-30 16:31] LABS: Allen Test POS (Pos)
[2021-08-30] MEDS ORDERED: MELATONIN 3 MG TAB PO PRN (17:30)
[2021-08-30] MEDS ORDERED: methylPREDNISolone 60 MG in SYRINGE 0 ML IV SCH (19:00)
[2021-08-30] MEDS: FAMOTIDINE 20 MG in SYRINGE 3 ML IV SCH (21:16)
[2021-08-31] MEDS: PIPERACILLIN/TAZOBACTAM 4.5 GM in DEXTROSE 5% 100 ML IV SCH (04:51)
--- NOTE | 2021-08-31 05:51 | Surgery Progress Note ---
Date of Service August 31, 2021 Assessment & Plan (1) Fever of unknown origin: Plan: There is concern that patient's fever may be potentially derived from a infected a port. The a port in question also has not been working properly. Blood cultures reviewed: On 08/25/2021 x 4 which are all negative. Blood cultures x2 have been drawn on 08/27/2021 with 1 positive for gram-positive cocci. Repeat blood cultures were drawn x2 on 08/28/2021 and remain negative to date. Would recommend continuing antibiotics. Patient is currently receiving Zosyn, Levaquin, and daptomycin. Plan is for patient to have her a port removed tentatively on 09/01/2021. Prior to this procedure her evening dose of Lovenox on 08/31/2021 and her a.m. dose on 09/01/2021 should be held. Admission and Anticipated Discharge Date Admission Date: August 25, 2021 Subjective Patient is resting comfortably in bed and is pleasantly confused. No overnight fevers noted. Physical Exam Physical Exam: Port examined and there is no pain with palpation of her port. Results & Data ([facility]) Vital Signs (Past 12 Hours) Vital Signs Temp Pulse Pulse Resp BP BP Pulse Ox 08/31/21 03:17 36.6 C 64 18 149/88 H 93 08/31/21 00:32 78 08/30/21 23:46 36.4 C L 83 20 157/93 H 92 08/30/21 18:34 36.4 C L 77 16 147/82 H 92 PG Care Time/CCT Total # of Minutes Spent Total Time Spent with Patient: Total time spent is greater than 50% in coordination of care (as documented) at patient's floor/unit and/or counseling patient: Coding Level of Care Code 75548 Subseq Hosp Care Lvl 1 Diagnoses Fever of unknown origin R50.9
[2021-08-31 05:54] LABS: Basophils # (auto) 0.01 K/uL (0-0.2); Basophils % (auto) 0.1 %; Hemoglobin 12.2 g/dL (12.0-16.0); Immature Granulocytes # (auto) 0.12 K/uL (0.00-0.02); Immature Granulocytes % (auto) 1.1 %; Lymphocytes # (auto) 0.91 K/uL (1.2-3.4); Lymphocytes % (auto) 8.4 %; Mean Corpuscular Hemoglobin 29.1 pg (25-34); Mean Corpuscular Volume 88.3 fL (80-100); Mean Platelet Volume 9.4 fL (7.4-10.4); Monocytes # (auto) 0.58 K/uL (0.11-0.59); Monocytes % (auto) 5.4 %; Neutrophils # (auto) 9.15 K/uL (1.4-6.5); Platelet Count 619 K/uL (130-400); RDW Coefficient of Variation 15.9 % (11.5-14.5); RDW Standard Deviation 51.3 fL (36.4-46.3); Red Blood Count 4.19 M/uL (4.2-5.4); White Blood Count 10.77 K/uL (4.8-10.8)
[2021-08-31 06:14] LABS: BUN Creatinine Ratio 28.4 (10-20); C Reactive Protein 7.18 mg/dl (0-0.5); Calcium 9.1 mg/dl (8.5-10.1); Est GFR (African American) 61.4 ml/min; Magnesium 1.7 mg/dl (1.7-2.4); Potassium 2.9 mmol/L (3.5-5.1)
[2021-08-31] MEDS: CLOTRIMAZOLE 10 MG TROCHE BUCCAL SCH ×5 (07:40→22:25)
[2021-08-31] MEDS: predniSONE 20 MG TAB PO SCH (07:41)
[2021-08-31] MEDS: ASPIRIN 81 MG ECTAB PO SCH (07:41)
[2021-08-31] MEDS: METOPROLOL TARTRATE 25 MG TAB PO SCH ×2 (07:42→20:05)
[2021-08-31] MEDS: ENOXAPARIN 100 MG/1ML SYR SQ SCH (07:44)
[2021-08-31] MEDS: MENTHOL-ZINC OXIDE 360 APPLN/120 GM TUBE EXT SCH ×2 (07:44→20:09)
[2021-08-31] MEDS: FLUCONAZOLE 200 MG/100 ML BAG IV SCH (10:48)
[2021-08-31] MEDS: POTASSIUM CHLORIDE / WTR 10 MEQ/100 ML PLCT IV SCH ×3 (12:41→16:00)
[2021-08-31] MEDS: ATORVASTATIN 40 MG TAB PO SCH (13:36)
--- NOTE | 2021-08-31 14:24 | Hospitalist Progress Note ---
Date of Service August 31, 2021 Assessment & Plan (1) Cerebrovascular accident (CVA): Plan: - MRI brain revealing R parietal acute/subacute infarct - Case d/w neurology who felt that a formal consult was not needed - Obtained Echocardiogram: normal lv size w/ hyperdynamic systolic fxn, EF >70%, No RWMA. Moderate concentric LVH. Moderate mitral annular calcification. Normal RVSP. - ASA and Lipitor advised, holding Lipitor as she is empirically on Dapto empirically - Speech therapy eval re-ordered d/t coughing spell while drinking water and new dx of stroke; appreciate assistance * Diet ordered on 08/29, required thickened liquids but upgraded today to thin liquids per ST note * Will require repeat VFSS ideally prior to d/c - PT/OT eval attempted, pt not able to participate, hopefully will be able to participate more over the weekend as she continues to improve (2) Fever of unknown origin: Plan: - presented with SIRS criteria including tachycardia (124), fever (101.4), tachypnea (27), and marginal BP of 99/50 - Sources of infection include: grossly infected urine (cloudy, nitrite and leukocyte esterase+), urine cx pending + radiologic evidence of PNA with hypoxia thus meeting sepsis criteria - Also concerned regarding existing mediport which could also is another potential source of infection - Procalcitonin elevated at 2.25 on admission and uptrended 3.58-->1.65-->0.49 - CRP elevated at 27.70-->20.3-->7.18 - Treated upfront with aggressive IVF hydration - APAP as needed for fever, would not utilize unless temp is greater than or equal to 38C - Held antihypertensives d/t marginal BP (which has since improved w/ hydration) - RUQ ultrasound revealed no evidence of acute/chronic cholecystitis as possible source - Blood cultures: one out of the total 8 tubes collected is positive for GPC in clusters (likely staph) -- suspect that this is a contaminant - Recently hospitalized 08/15-08/21 with similar presentation w/o obvious source identified; however, was treated empirically w/ Doxy for possible tick-borne illness - Was initially hospitalized with empiric Zosyn but despite greater than 48 hours of this, was febrile, tachycardic and hypotensive. Antibiotic coverage broadened to Zosyn + Levaquin + linezolid * Zosyn covering for HAP/Aspiration PNA (also providing pseudomonal coverage given recent hospitalization with d/c to SNF) * Levaquin adds double antipseudomonal coverage * Zyvox covered MRSA and also provided lung coverage. Pharmacy suggested transition of linezolid to daptomycin given negative MRSA nasal swab. Utiliz ing daptomycin really limits oral options as she failed doxycycline. * Antibiotic regimen discussed with pharmacy. Thought was to de-escalate to Levaquin/linezolid. Pharmacy does not want linezolid given unless recommended by infectious disease. Subsequently, ID consulted, appreciate recommendations. - Fungal blood cultures ordered and pending - Patient did have a fever spike on 08/28 (right around 48-hours of broadened coverage) * At this time, it was uncertain if her Keytruda was potentially causing an inflammatory response for which IV steroids were initiated * Again, certainly possible (although likelihood is low) that mediport is infected (have not been able to draw cultures from the line). Plan is for removal on Wednesday, cultures to be drawn on line at that time. * Inflammatory markers have down trended. IV steroids de-escalated to oral Prednisone which was started today. (3) Acute UTI: Plan: - UA appears grossly infected (cloudy, leukocyte esterase and nitrite positive). Perhaps culture skewed given oral Doxycycline on board [employer] - CT of the abdomen and pelvis without pyelonephrosis/hydronephrosis/obstructive uropathy - Urine cx with growth of 2 different types of yeast, 1st identified is marsha albicans, second is yet to be identified * Empirically started on fluconazole 200mg daily, per UTD recommendations, needs 14 days total * Did call micro and ask that it be sent out for sensitivities - fungal BC ordered and pending (4) Pneumonia: Plan: - CT showing small pleural effusions bilaterally with bibasilar infiltrates (new in comparison to CT done on 08/17/2021) - Continue IV Zosyn (which should provide adequate antipseudomonal coverage given recent hospital stay). - in addition, MBS done during recent stay and there was concern for silent aspiration at that time. Zosyn should provide adequate gram-negative and anaerobic coverage. * Patient n.p.o. upfront given her obtunded state and need for airway protection * Although MBS does show concern for silent aspiration, this was discussed w/ speech therapy (Vandana Sherwood) who adamantly reports patient does not have aspiration concerns * 08/27: patient became more A&O-was initiated full liquid. Advance to pured and minced/moist as tolerated at discretion of ST * Concerns from staff regarding ability to eat and signs of aspiration for which speech therapy was asked to reevaluate the patient (especially given her subacute CVA) * Assessed by ST on 08/29 with recommendations for minced and moist diet, thin liquids, aspiration precautions and planned VFSS on 09/01 or 09/02 - MRSA nasal swab negative on 08/15 and again 08/25 which is why she was not initi ally started on MRSA coverage (as also on doxycycline [employer]). MRSA coverage added on 08/27 given persistent fevers and sepsis syndrome despite IV antibiotics - Continue supplemental oxygen to maintain a pulse ox of >90 % - continue nebulized treatments prn - Sputum culture ordered (but uncollected as unable to expectorate) - Did discuss CODE STATUS with sisters on 08/25 Patient is a full code - IV Lasix given 08/28 and 08/30 given pulmonary edema likely secondary to aggressive fluid resuscitation from sepsis (5) Encephalopathy: Plan: - Metabolic Encephalopathy (from PNA/UTI/CVA) - Showing favorable response. Has been showing favorable response although talkative and nonsensical at times - obtunded on 08/30 (had been improving up until this point). Repeat COVID (not collected) in addition to ABG and ammonia level (both of which were normal)-- suspect a component of hospital acquired delirium at this point - CT of the head done upon arrival showing no acute intracranial process. - MRI showed 6 mm focus of restricted diffusion in the right parietal lobe suggestive of acute versus subacute lacunar infarct--?contributing (6) SHAMEKA (acute kidney injury): Plan: - Creatinine elevated at 1.48 upon arrival (with creatinine clearance of 39.4). - Creatinine was 0.86 on 08/21 upon discharge - improved with adequate IV hydration - Overnight (08/26-08/27) there was concern given her limited urinary output and subtle edema. Her IVF were stopped and she was given Lasix IV. Creatinine uptrending slightly - Poor urine output was likely from SHAMEKA (and perhaps ATN) from sepsis and hypoperfusion given her hypotension. Prior to Lasix, she was not oliguric. - Creatinine has since improved and is back to baseline with IV hydration which has since been stopped (7) Elevated troponin: Plan: - HS trop 18.0 without acute EKG changes - FU trop downtrending (15.1) and repeat EKG without acute changes - suspect elevated from myocardial demand ischemia rather than unstable plaque (8) Hypomagnesemia: Plan: - replaced/resolved (9) Right arm pain: Plan: - suspect was a mild/developing cellulitis that now seems to be improving - initially, unable to vocalize pain but nursing report patient yelling out when arm is touched - venous doppler done despite being on Eliquis (as patient with known metastatic Ca): negative for DVT - erythema, edema improving. 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 Received Cathflo but line still seems nonfunctional - d/w general surgery, will plan to remove line on Wednesday as nonfunctional line and unable to rule out this being source of infection (11) History of DVT (deep vein thrombosis): Plan: - On Eliquis chronicallyunable to tolerate oral medication given obtunded state - For now, utilizing Lovenox - Right upper extremity venous Doppler shows no evidence of DVT - Keeping on Lovenox as it will be easier to stop prior to her Mediport removal on Wednesday - Can then resume Eliquis upon d/c (12) Hypertension: Plan: - Hold oral antihypertensive agents given hypotension/sepsis syndrome (including amlodipine and metoprolol) - 08/27: BP improved but meds kept on hold - Meds still held on 08/30 due to excessive somnolence - She is awake/alert on on 08/31, HTN meds reordered (13) Melanoma: Plan: - with metastasis - on Keytruda infusions every 3 weeks - mediport in place--semi-functional as it can be accessed for IVF but no blood draws - No evidence of cerebral metastasis seen on MRI Plan: Patient has been hemodynamically stable and has since defervesced (last fever spike 08/28). Plan is to de-escalate antibiotic coverage to Levaquin and Fluconazole (stopping Zosyn and Daptomycin). Continue to monitor closely for fever spikes. Trend CRP and Procal. NPO after MN and Lovenox stopped in preparation for OR to have mediport removed tomorrow. Will need cultures drawn from line upon removal. PM dose of Eliquis can be resumed on 09/01. Will discuss case with ID as they have already been consulted. IV K Riders ordered to replace potassium of 2.9 (as pt would not be able to swallow the large pills). PT/OT consulted but has yet to work with patient this admission due to confusion or somnolence. I am hopeful that they will make an attempt to work with her tomorrow. Will d/w ST regarding updating her VFSS tomorrow as well. Anticipate she may be ready to return to SNF for rehab in the next 48 hours barring any further fevers or other complications. Plan has been d/w Dr. Layton Ceballos in detail. Admission and Anticipated Discharge Date Admission Date: August 25, 2021 Subjective Patient is resting comfortably in bed and is pleasantly confused. No overnight fevers noted. Review of Systems Review of Systems: ROS unobtainable Physical Exam Physical Exam: GENERAL: 76 yo well-developed, well-nourished elderly WF. NAD. LUNGS: Diminished in bases bilaterally CARDIOVASCULAR: Regular rate and rhythm. ABDOMEN: Soft, non-tender and non-distended. BS normoactive x 4 quad. EXTREMITIES: RUE edema noted. 1+ edema in b/l LE. Non-tender. Peripheral pulses +2/4. NEUROLOGIC: A&Ox1 (self), garbled/nonsensical speech. No gross focal neuro deficits. PSYCHIATRIC: Cooperative. Appropriate mood and affect. SKIN: Warm, dry, intact. Groin folds are extremely excoriated and breakdown noted on left buttocks Results & Data Results & Data ([facility]) Vital Signs (Past 12 Hours) Vital Signs Temp Pulse Resp BP Pulse Ox 08/31/21 11:03 36.8 C 80 18 164/94 H 90 08/31/21 06:44 36.6 C 69 18 131/84 94 05/15/22 03:17 36.6 C 64 18 149/88 H 93 PG Care Time/CCT Total # of Minutes Spent Total Time Spent with Patient: Total time spent is greater than 50% in coordination of care (as documented) at patient's floor/unit and/or counseling patient: Coding Level of Care Code 52987 Subseq Hosp Care Lvl 3 Diagnoses Cerebrovascular accident (CVA) I63.9 Fever of unknown origin R50.9 Acute UTI N39.0 Pneumonia J18.9 Encephalopathy G93.40 SHAMEKA (acute kidney injury) N17.9 Elevated troponin R77.8 Hypomagnesemia E83.42 Right arm pain M79.601 Central line complication T82.9XXA History of DVT (deep vein thrombosis) Z86.718 Hypertension I10 Melanoma C43.9
[2021-08-31] MEDS: levoFLOXacin/D5W 750 MG/150 ML BAG IV SCH (15:00)
[2021-08-31] MEDS: amLODIPine BESYLATE 5 MG TAB PO SCH (16:24)
[2021-08-31 17:10] LABS: Influenza A virus by PCR Negative (Neg); Influenza B virus by PCR Negative (Neg); RSV by PCR Negative (Neg); SARS CoV2 RNA(COVID-19) InHosp NEGATIVE (Negative)
[2021-08-31] MEDS: FAMOTIDINE 20 MG in SYRINGE 3 ML IV SCH (20:11)
[2021-09-01] MEDS: CLOTRIMAZOLE 10 MG TROCHE BUCCAL SCH ×5 (07:30→22:03)
[2021-09-01 08:42] LABS: Basophils # (auto) 0.01 K/uL (0-0.2); Basophils % (auto) 0.1 %; Eosinophils # (auto) 0.01 K/uL (0-0.5); Eosinophils % (auto) 0.1 %; Hematocrit (blood only) 30.6 % (37-47); Immature Granulocytes # (auto) 0.15 K/uL (0.00-0.02); Lymphocytes # (auto) 1.37 K/uL (1.2-3.4); Lymphocytes % (auto) 8.9 %; Mean Corpuscular Hemoglobin 28.9 pg (25-34); Mean Corpuscular Hgb Conc 32.7 g/dL (32-36); Mean Corpuscular Volume 88.4 fL (80-100); Monocytes # (auto) 2.26 K/uL (0.11-0.59); Monocytes % (auto) 14.7 %; Neutrophils # (auto) 11.58 K/uL (1.4-6.5); Neutrophils % (auto) 75.2 %; Platelet Count 535 K/uL (130-400); RDW Coefficient of Variation 15.8 % (11.5-14.5); RDW Standard Deviation 51.2 fL (36.4-46.3); Red Blood Count 3.46 M/uL (4.2-5.4); White Blood Count 15.38 K/uL (4.8-10.8)
[2021-09-01 09:20] LABS: BUN Creatinine Ratio 30.5 (10-20); C Reactive Protein 3.84 mg/dl (0-0.5); Calcium 8.7 mg/dl (8.5-10.1); Creatinine Clr Calc Pharmacy 62.2 ml/min; Est GFR (Non-African American) 57.8 ml/min; Magnesium 1.6 mg/dl (1.7-2.4); Potassium 2.5 mmol/L (3.5-5.1)
[2021-09-01] MEDS ORDERED: POTASSIUM CHLORIDE 20 MEQ/15 ML UDC PO STA (09:35)
[2021-09-01] MEDS: ASPIRIN 81 MG ECTAB PO SCH (09:38)
[2021-09-01] MEDS: METOPROLOL TARTRATE 25 MG TAB PO SCH ×2 (09:39→19:21)
[2021-09-01] MEDS: amLODIPine BESYLATE 5 MG TAB PO SCH (09:39)
[2021-09-01] MEDS: predniSONE 20 MG TAB PO SCH (09:39)
[2021-09-01] MEDS: FLUCONAZOLE 200 MG/100 ML BAG IV SCH (09:40)
[2021-09-01] MEDS: MENTHOL-ZINC OXIDE 360 APPLN/120 GM TUBE EXT SCH ×2 (09:40→20:27)
[2021-09-01] MEDS ORDERED: DEXTROSE 5% 1,000 ML IV SCH (09:45)
[2021-09-01] MEDS: POTASSIUM CHLORIDE / WTR 10 MEQ/100 ML PLCT IV SCH ×3 (09:58→13:38)
[2021-09-01] MEDS: ONDANSETRON INJ 2 MG/ML 2 ML VIAL IV PRN (10:45)
[2021-09-01] MEDS: ATORVASTATIN 40 MG TAB PO SCH (10:48)
--- NOTE | 2021-09-01 11:15 | Hospitalist Progress Note ---
Date of Service September 01, 2021 Assessment & Plan (1) Cerebrovascular accident (CVA): Plan: - MRI brain revealing R parietal acute/subacute infarct - Case d/w neurology who felt that a formal consult was not needed - Obtained Echocardiogram: normal lv size w/ hyperdynamic systolic fxn, EF >70%, No RWMA. Moderate concentric LVH. Moderate mitral annular calcification. Normal RVSP. - ASA and Lipitor advised, Lipitor ordered but held as she was empirically on Dapto, has since been resumed since she is now off the Dapto - Speech therapy eval re-ordered d/t coughing spell while drinking water and new dx of stroke; appreciate assistance * Diet ordered on 08/29, required thickened liquids but upgraded today to thin liquids per ST note * Will require repeat VFSS ideally prior to d/c - PT/OT eval attempted (last attempt documented was 08/29), pt not able to participate, hopefully will be able to participate more over the weekend as she continues to improve (2) Fever of unknown origin: Plan: - presented with SIRS criteria including tachycardia (124), fever (101.4), tachypnea (27), and marginal BP of 99/50 - Sources of infection include: grossly infected urine (cloudy, nitrite and leukocyte esterase+), urine cx pending + radiologic evidence of PNA with hypoxia thus meeting sepsis criteria - Also concerned regarding existing mediport which could also is another potential source of infection - Procalcitonin elevated at 2.25 on admission and uptrended 3.58-->1.65-->0.49 - CRP elevated at 27.70-->20.3-->7.18-->3.84 - Treated upfront with aggressive IVF hydration - APAP as needed for fever, would not utilize unless temp is greater than or equal to 38C - Held antihypertensives d/t marginal BP (which has since improved w/ hydration) - RUQ ultrasound revealed no evidence of acute/chronic cholecystitis as possible source - Blood cultures: one out of the total 8 tubes collected is positive for GPC in clusters (likely staph) -- suspect that this is a contaminant - Recently hospitalized 08/15-08/21 with similar presentation w/o obvious source identified; however, was treated empirically w/ Doxy for possible tick-borne illness - Was initially hospitalized with empiric Zosyn but despite greater than 48 hours of this, was febrile, tachycardic and hypotensive. Antibiotic coverage broadened to Zosyn + Levaquin + linezolid * Zosyn covering for HAP/Aspiration PNA (also providing pseudomonal coverage given recent hospitalization with d/c to SNF) * Levaquin adds double antipseudomonal coverage * Zyvox covered MRSA and also provided lung coverage. Pharmacy suggested transition of linezolid to daptomycin given negative MRSA nasal swab. Utilizing daptomycin really limits oral options as she failed doxycycline. * Antibiotic regimen discussed with pharmacy. Thought was to de-escalate to Levaquin/linezolid. Pharmacy does not want linezolid given unless recommended by infectious disease. Subsequently, ID consulted, appreciate recommendations. - Fungal blood cultures ordered and pending - Patient did have a fever spike on 08/28 (right around 48-hours of broadened coverage) * At this time, it was uncertain if her Keytruda was potentially causing an inflammatory response for which IV steroids were initiated * Again, certainly possible (although likelihood is low) that mediport is infected (have not been able to draw cultures from the line). Plan is for removal on Wednesday, cultures to be drawn on line at that time. * Inflammatory markers continue to downtrend. IV steroids de-escalated to oral Prednisone which was started 08/31. (3) Acute UTI: Plan: - UA appears grossly infected (cloudy, leukocyte esterase and nitrite positive). Perhaps culture skewed given oral Doxycycline on board [employer] - CT of the abdomen and pelvis without pyelonephrosis/hydronephrosis/obstructive uropathy - Urine cx with growth of 2 different types of yeast, 1st identified is marsha albicans, second is yet to be identified * Empirically started on fluconazole 200mg daily, per UTD recommendations, needs 14 days total * Did call micro and ask that it be sent out for sensitivities - fungal BC ordered and pending (4) Pneumonia: Plan: - CT showing small pleural effusions bilaterally with bibasilar infiltrates (new in comparison to CT done on 08/17/2021) - Continue IV Zosyn (which should provide adequate antipseudomonal coverage given recent hospital stay). - in addition, MBS done during recent stay and there was concern for silent aspiration at that time. Zosyn should provide adequate gram-negative and anaerobic coverage. * Patient n.p.o. upfront given her obtunded state and need for airway p rotection * Although MBS does show concern for silent aspiration, this was discussed w/ speech therapy (Vandana Sherwood) who adamantly reports patient does not have aspiration concerns * 08/27: patient became more A&O-was initiated full liquid. Advance to pured and minced/moist as tolerated at discretion of ST * Concerns from staff regarding ability to eat and signs of aspiration for which speech therapy was asked to reevaluate the patient (especially given her subacute CVA) * Assessed by ST on 08/29 with recommendations for minced and moist diet, thin liquids, aspiration precautions and planned VFSS on 09/01 or 09/02 - MRSA nasal swab negative on 08/15 and again 08/25 which is why she was not initially started on MRSA coverage (as also on doxycycline [employer]). MRSA coverage added on 08/27 given persistent fevers and sepsis syndrome despite IV antibiotics - Continue supplemental oxygen to maintain a pulse ox of >90 % - continue nebulized treatments prn - Sputum culture ordered (but uncollected as unable to expectorate) - Did discuss CODE STATUS with sisters on 08/25 Patient is a full code - IV Lasix given 08/28 and 08/30 given pulmonary edema likely secondary to aggressive fluid resuscitation from sepsis (5) Hypokalemia: Plan: - Both oral and IV replacement has been ordered for K+ of 2.5 - Repeat BMP @ 1700 ordered (6) Encephalopathy: Plan: - Metabolic Encephalopathy (from PNA/UTI/CVA) - Showing favorable response. Has been showing favorable response although talkative and nonsensical at times - obtunded on 08/30 (had been improving up until this point). Repeat COVID (not collected) in addition to ABG and ammonia level (both of which were normal)-- suspect a component of hospital acquired delirium at this point - CT of the head done upon arrival showing no acute intracranial process. - MRI showed 6 mm focus of restricted diffusion in the right parietal lobe suggestive of acute versus subacute lacunar infarct--?contributing (7) Elevated troponin: Plan: - HS trop 18.0 without acute EKG changes - FU trop downtrending (15.1) and repeat EKG without acute changes - suspect elevated from myocardial demand ischemia rather than unstable plaque (8) Hypomagnesemia: Plan: - Replacement ordered for mag of 1.6 today (9) Right arm pain: Plan: - suspect was a mild/developing cellulitis that now seems to be improving - initially, unable to vocalize pain but nursing report patient yelling out when arm is touched - venous doppler done despite being on Eliquis (as patient with known metastatic Ca): negative for DVT - erythema, edema improving. 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 Received Cathflo but line still seems nonfunctional - d/w general surgery, will plan to remove line on Wednesday as nonfunctional line and unable to rule out this being source of infection (11) History of DVT (deep vein thrombosis): Plan: - On Eliquis chronicallyunable to tolerate oral medication given obtunded state - For now, utilizing Lovenox - Right upper extremity venous Doppler shows no evidence of DVT - Keeping on Lovenox as it will be easier to stop prior to her Mediport removal on Wednesday - Can then resume Eliquis after mediport is removed (12) Hypertension: Plan: - Hold oral antihypertensive agents given hypotension/sepsis syndrome (including amlodipine and metoprolol) - 08/27: BP improved but meds kept on hold - Meds still held on 08/30 due to excessive somnolence - She is awake/alert on on 08/31, HTN meds reordered (13) Melanoma: Plan: - with metastasis - on Keytruda infusions every 3 weeks - mediport in place--semi-functional as it can be accessed for IVF but no blood draws - No evidence of cerebral metastasis seen on MRI Plan: Patient has been hemodynamically stable and has since defervesced (last fever spike 08/28). Plan is to de-escalate antibiotic coverage to Levaquin and Fluconazole (stopping Zosyn and Daptomycin). Continue to monitor closely for fever spikes. Trend CRP and Procal. For mediport removal today. Will need cultures drawn from line upon removal. PM dose of Eliquis can be resumed on 09/01. Will discuss case with ID as they have already been consulted. She did have a jump in her wbc count today but believe this all to be steroid induced. Does appear to be slightly dry this AM, Na up to 148, dry mucous membranes. I also suspect that her electrolyte imbalances are d/t poor PO intake. Can add boost/ensure supplementation, consult dietary. PT/OT consulted but has yet to work with patient this admission due to confusion or somnolence. I am hopeful that they will make an attempt to work with her tomorrow. Will d/w ST regarding updating her VFSS today as well. Anticipate she may be ready to return to SNF for rehab in the next 24-48 hours barring any further fevers or other complications. Plan has been d/w Dr. Layton Ceballos in detail. Admission and Anticipated Discharge Date Admission Date: August 25, 2021 Subjective Patient is resting comfortably in bed and is pleasantly confused. No fevers since 08/28. Review of Systems Review of Systems: ROS unobtainable Physical Exam Physical Exam: GENERAL: 76 yo well-developed, well-nourished elderly WF. NAD. LUNGS: Diminished in bases bilaterally CARDIOVASCULAR: Regular rate and rhythm. ABDOMEN: Soft, non-tender and non-distended. BS normoactive x 4 quad. EXTREMITIES: RUE edema noted. 1+ edema in b/l LE. Non-tender. Peripheral pulses +2/4. NEUROLOGIC: A&Ox1 (self), garbled/nonsensical speech. No gross focal neuro deficits. PSYCHIATRIC: Cooperative. Appropriate mood and affect. SKIN: Warm, dry, intact. Groin folds are excoriated and breakdown noted on left buttocks Results & Data Results & Data ([facility]) Vital Signs (Past 12 Hours) Vital Signs Temp Pulse Pulse Resp BP Pulse Ox 09/01/21 11:05 36.5 C 79 18 108/63 93 09/01/21 08:06 110 H 08/31/21 23:48 94 H PG Care Time/CCT Total # of Minutes Spent Total Time Spent with Patient: Total time spent is greater than 50% in coordination of care (as documented) at patient's floor/unit and/or counseling patient: Coding Level of Care Code 42147 Subseq Hosp Care Lvl 3 Diagnoses Cerebrovascular accident (CVA) I63.9 Fever of unknown origin R50.9 Acute UTI N39.0 Pneumonia J18.9 Encephalopathy G93.40 Elevated troponin R77.8 Hypomagnesemia E83.42 Right arm pain M79.601 Central line complication T82.9XXA History of DVT (deep vein thrombosis) Z86.718 Hypertension I10 Melanoma C43.9 Hypokalemia E87.6
--- NOTE | 2021-09-01 13:25 | Surgery Progress Note ---
Date of Service September 01, 2021 Assessment & Plan (1) Fever of unknown origin: Plan: There is still no signs at the port is infected, however its malfunctioning We will plan on removing the port tomorrow due to the patient's hyperkalemia today, this needs to be improved prior to OR N.p.o. after midnight and hold her Lovenox Consent was obtained from the son via telephone, risks discussed including bleeding, infection (2) Central line complication: Admission and Anticipated Discharge Date Admission Date: August 25, 2021 Subjective Patient seen and examined. Still disoriented. Review of Systems Constitutional: no fever and no chills Physical Exam Constitutional: WD/WN, vitals as above Eyes: PERRL, conjunctivae normal, anicteric sclerae Neck: normal visual inspection and trachea midline No cellulitis Respiratory: normal respiratory effort, lungs clear to auscultation Cardiovascular: Rate/Rhythm: regular rate Gastrointestinal (Abdomen): normal bowel sounds, soft, nontender, no hepatospl enomegaly Musculoskeletal: no cyanosis or clubbing, extremities motor strength 5/5 Skin: no rashes, warm and dry Neurologic: awake and + confused Psychiatric: Orientation: alert Results & Data ([facility]) Vital Signs (Past 12 Hours) Vital Signs Temp Pulse Pulse Resp BP Pulse Ox 09/01/21 11:05 36.5 C 79 18 108/63 93 09/01/21 08:06 110 H PG Care Time/CCT Total # of Minutes Spent Total Time Spent with Patient: Total time spent is greater than 50% in coordination of care (as documented) at patient's floor/unit and/or counseling patient: Coding Level of Care Code 85457 Subseq Hosp Care Lvl 1 Diagnoses Fever of unknown origin R50.9 Central line complication T82.9XXA
[2021-09-01] MEDS ORDERED: levoFLOXacin/D5W 750 MG/150 ML BAG IV SCH (17:00)
[2021-09-01 18:22] LABS: BUN Creatinine Ratio 28.2 (10-20); Calcium 8.7 mg/dl (8.5-10.1); Creatinine Clr Calc Pharmacy 53.7 ml/min; Est GFR (African American) 56.1 ml/min; Est GFR (Non-African American) 48.4 ml/min; Potassium 3.5 mmol/L (3.5-5.1)
[2021-09-01] MEDS: MAGNESIUM SULFATE / D5W 1 GM/100 ML BAG IV SCH ×2 (18:38→20:23)
[2021-09-01] MEDS: FAMOTIDINE 20 MG in SYRINGE 3 ML IV SCH (20:27)
[2021-09-02] MEDS: CLOTRIMAZOLE 10 MG TROCHE BUCCAL SCH ×5 (06:00→22:29)
[2021-09-02 07:01] LABS: Basophils # (auto) 0.01 K/uL (0-0.2); Basophils % (auto) 0.1 %; Eosinophils # (auto) 0.02 K/uL (0-0.5); Eosinophils % (auto) 0.1 %; Hematocrit (blood only) 26.3 % (37-47); Hemoglobin 8.3 g/dL (12.0-16.0); Immature Granulocytes # (auto) 0.56 K/uL (0.00-0.02); Immature Granulocytes % (auto) 4.1 %; Lymphocytes # (auto) 1.73 K/uL (1.2-3.4); Lymphocytes % (auto) 12.5 %; Mean Corpuscular Hemoglobin 28.3 pg (25-34); Mean Corpuscular Hgb Conc 31.6 g/dL (32-36); Mean Corpuscular Volume 89.8 fL (80-100); Mean Platelet Volume 9.2 fL (7.4-10.4); Monocytes # (auto) 1.66 K/uL (0.11-0.59); Neutrophils # (auto) 9.81 K/uL (1.4-6.5); Neutrophils % (auto) 71.2 %; Nucleated RBC # (auto) 0.08 K/uL (0-0); Nucleated RBC % (auto) 0.5 %; Platelet Count 454 K/uL (130-400); RDW Coefficient of Variation 16.4 % (11.5-14.5); RDW Standard Deviation 53.3 fL (36.4-46.3); Red Blood Count 2.93 M/uL (4.2-5.4); White Blood Count 13.79 K/uL (4.8-10.8)
[2021-09-02 07:19] LABS: BUN Creatinine Ratio 27.4 (10-20); C Reactive Protein 6.75 mg/dl (0-0.5); Calcium 8.4 mg/dl (8.5-10.1); Creatinine Clr Calc Pharmacy 47.6 ml/min; Est GFR (African American) 48.5 ml/min; Est GFR (Non-African American) 41.9 ml/min; Magnesium 2.1 mg/dl (1.7-2.4); Potassium 3.1 mmol/L (3.5-5.1)
[2021-09-02] MEDS: MENTHOL-ZINC OXIDE 360 APPLN/120 GM TUBE EXT SCH ×2 (08:16→20:01)
[2021-09-02] MEDS: FLUCONAZOLE 200 MG/100 ML BAG IV SCH (08:16)
[2021-09-02] MEDS ORDERED: POTASSIUM CHLORIDE 20 MEQ/15 ML UDC PO STA (08:20)
[2021-09-02] MEDS ORDERED: PROPOFOL IV EMULSION 10 MG/ML 20 ML VIAL IV ONE (09:17)
[2021-09-02] MEDS ORDERED: MIDAZOLAM HCL 1 MG/ML 2ML VIAL ONE (09:17)
[2021-09-02] MEDS ORDERED: fentaNYL citrate 100 MCG/2 ML VIAL ONE (09:18)
--- NOTE | 2021-09-02 10:02 | Anesthesiology Consultation ---
Date of Service September 02, 2021 Assessment & Plan Chart Review Chart Review: Acceptable Risk for Surgery and Patient NOT seen in Pre Admission Testing Consults Requested none ASA ASA4 Proposed Anesthesia Anesthesia Type: MAC Risk / Benefits Reviewed With: PT / POA / Parent / Guardian, Accepts Plan and Informed Consent Obtained History Surgery Operation Date: 09/01/21 11:40 Proposed Procedures p Mediport Removal - Arsh Berrios DO Operation Date: 09/02/21 10:10 Proposed Procedures p Mediport Removal - Arsh Berrios DO Height/Weight Height: 5 ft 7 in Weight: 106 kg Allergies Allergy/AdvReac Type Severity Reaction Status Date / Time tramadol Allergy Mild NASUEA/CONF Verified 01/15/21 08:49 USION cephalexin [From Keflex] AdvReac Mild upset Verified 01/15/21 08:49 stomach Medications Home Medications Medication Instructions Recorded Confirmed Last Taken amlodipine 5 mg tablet (Norvasc) 5 mg PO QAM 12/05/18 08/15/21 01/15/21 06:30 omeprazole 20 mg tablet,delayed 20 mg PO QAM 12/05/18 08/15/21 01/15/21 06:30 release cholecalciferol (vitamin D3) 25 25 mcg PO QAM 12/11/19 08/15/21 01/14/21 07:00 mcg (1,000 unit) tablet (Vitamin D3) metoprolol tartrate 25 mg tablet 12.5 mg PO BID 03/26/20 08/15/21 01/15/21 06:30 diphenhydramine HCl 25 mg capsule 25 mg PO HS PRN cap 03/28/20 08/15/21 01/14/21 07:00 (Benadryl) multivitamin 1 tab PO QAM 04/25/20 08/15/21 01/14/21 07:00 cetirizine 10 mg tablet (Zyrtec) 10 mg PO QAM 01/14/21 08/15/21 01/14/21 19:00 apixaban 5 mg tablet (Eliquis) 5 mg PO DAILY 08/15/21 08/15/21 Unknown esomeprazole magnesium 20 mg 20 mg PO DAILY 08/15/21 08/15/21 Unknown capsule,delayed release montelukast 10 mg tablet 10 mg PO DAILY 08/15/21 08/15/21 Unknown doxycycline hyclate 100 mg capsule 100 mg PO BID #23 cap 08/21/21 Unknown nystatin 100,000 unit/mL oral 5 ml PO QID #140 ml 08/21/21 Unknown suspension triamcinolone acetonide 0.1 % 1 applic EXT QID PRN #1 g 08/21/21 Unknown topical cream Active Medications Generic Name Dose Route Start Last Admin Trade Name Freq PRN Reason Stop Dose Admin Acetaminophen 650 mg 08/28/21 17:44 08/28/21 18:11 Acetaminophen 325 Mg Tab PO 09/27/21 17:43 650 mg Q4H PRN Administration Pain or Fever Amlodipine Besylate 5 mg 08/31/21 14:30 09/01/21 09:39 Amlodipine Besylate 5 Mg Tab PO 09/30/21 14:29 5 mg QAM DAVID Administration Aspirin 81 mg 08/28/21 09:45 09/01/21 09:38 Aspirin 81 Mg Ectab PO 09/27/21 09:44 81 mg QAM DAVID Administration Atorvastatin Calcium 40 mg 08/29/21 09:00 09/01/21 10:48 Atorvastatin 40 Mg Tab PO 09/28/21 08:59 Not Given QAM DAVID Calamine/Phenol 1 appln 08/30/21 10:30 09/02/21 08:16 Menthol-Zinc Oxide 360 Appln/120 Gm Tube EXT 09/29/21 10:29 1 appln BID DAVID Administration Clotrimazole 10 mg 08/27/21 11:00 09/02/21 06:00 Clotrimazole 10 Mg Dipika BUCCAL 09/26/21 10:59 10 mg [id number] DAVID Administration Famotidine 20 mg/ Syringe 5 mls @ 2.5 mls/min 08/25/21 21:00 09/01/21 20:27 IV 09/24/21 20:59 2.5 mls/min HS DAVID Administration Fluconazole 200 mg in 100 mls @ 100 mls/hr 08/29/21 15:00 09/02/21 09:16 Diflucan IV 09/08/21 14:59 Infused DAILY DAVID Infusion Protocol Levofloxacin/Dextrose 750 mg in 150 mls @ 100 mls/hr 09/01/21 17:00 09/01/21 19:02 Levaquin/D5w IV 09/03/21 16:59 Infused Q24H DAVID Infusion Protocol Metoprolol Tartrate 12.5 mg 08/30/21 09:30 09/01/21 19:21 Metoprolol Tartrate 25 Mg Tab PO 09/29/21 09:29 12.5 mg BID DAVID Administration Ondansetron HCl 4 mg 08/25/21 12:00 09/01/21 10:45 Ondansetron Inj 2 Mg/Ml 2 Ml Vial IV 09/24/21 11:59 4 mg Q6H PRN Administration Nausea Prednisone 40 mg 08/31/21 09:00 09/01/21 09:39 Prednisone 20 Mg Tab PO 09/30/21 08:59 40 mg DAILY DAVID Administration NPO Date Last Intake of Fluids: 09/02/21 Time Last Intake of Fluids: 06:00 Last Intake of Fluids Comment: Sips w/ PO meds Date Last Intake of Solids: 09/01/21 Time Last Intake of Solids: 18:00 Past Medical History Medical History Cerebral infarct "Presumed old right frontal lobe cerebral infarct" - per Dec 2019 PET scan -- pt unaware/denies 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 No chemo or XRT GERD (gastroesophageal reflux disease) Hearing deficit Hiatal hernia Hx of pulmonary embolus 2018 s/p foot surgery, was on Eliquis for a few months. Hypertension Kidney disease Stage III- does not follow with [employer] Left leg DVT post op after foot surgery Melanoma Metastatic malignant melanoma dx'ed 10/29/20 Will require immunotherapy infusions- reason for port Obesity Seasonal allergies SOB (shortness of breath) on exertion Unilateral vocal cord paralysis sees [facility] - Dr. Tinsley Exercise / Class Metabolic Activity II 4-5 Yardwork/Stairs/Walk up hill Past Family History Family History Mother Hearing loss Cancer Sister Hearing loss Cancer Other Breast cancer Family history non-contributory No family history of adverse response to anesthesia No family history of bleeding disorder Past Surgical History Surgical History H/O excision of mass History of ankle surgery RECONSTRUCTION OF LEFT ANKLE History of biopsy History of cataract surgery History of colonoscopy History of esophagogastroduodenoscopy (EGD) History of laryngoscopy Hx of bladder repair surgery Hx of foot surgery reconstructive right foot surgery (2019) Hx of hysterectomy Hx of total knee replacement RIGHT AND LEFT Hx of tubal ligation PONV (postoperative nausea and vomiting) Past Anesthesia History No Hx of Anesthesia Complications and No Family Hx of Anesthesia Complications History of PONV No Hx of PONV and No Hx of Motion Sickness Social History Smoking Status: Never smoker tobacco type: cigarettes Do You Dip or Chew Tobacco: No Hx Alcohol Use: No Alcohol type: beer alcohol intake frequency: holidays/special occasions only Hx Substance Use: No substance use type: does not use Physical Exam Vital Signs Last Vital Signs Temp 36.4 C L 09/02/21 09:20 Pulse 84 09/02/21 09:20 Resp 18 09/02/21 09:20 BP 135/73 09/02/21 09:20 Pulse Ox 96 09/02/21 09:20 ENMT Mouth: no dentition abnormality Thyromental Distance: > or= 3.5 Finger Breadths Mallampati Class: II Neck normal visual inspection Respiratory normal respiratory effort Auscultation: lungs clear to auscultation bilaterally Cardiovascular Rate/Rhythm: regular rate and regular rhythm Psychiatric Orientation: alert (confused (at baseline, per floor nurse)) Testing Laboratory Results 09/02/21 06:36 09/02/21 06:36 PT 15.0 Seconds (9.0-12.0) H 08/26/21 06:29 INR 1.4 (0.9-1.1) H 08/26/21 06:29 Hemoglobin A1c 5.8 % (4.5-5.6) H 08/28/21 07:03 Urine Color [place] 08/28/21 13:40 Urine Appearance Turbid (Clear) A 08/28/21 13:40 Urine pH 5.0 (4.5-7.5) 08/28/21 13:40 Ur Specific [place] 1.035 (1.000-1.030) H 08/28/21 13:40 Urine Protein 2+ (Negative) H 08/28/21 13:40 Urine Glucose (UA) Negative (Negative) 08/28/21 13:40 Urine Ketones Trace (Negative) H 08/28/21 13:40 Urine Nitrite Positive (Negative) A 08/28/21 13:40 Ur Leukocyte Esterase 1+ (Negative) H 08/28/21 13:40 Urine WBC (Auto) >30 /hpf (0-5) H 08/28/21 13:40 Urine RBC (Auto) 10-30 /hpf (0-4) H 08/28/21 13:40 U Hyaline Cast (Auto) 1-5 /lpf (0-5) 08/28/21 13:40 U Epithel Cells (Auto) >30 /lpf (0-5) H 08/28/21 13:40 Urine Bacteria (Auto) Negative (Negative) 08/28/21 13:40 Blood Type A Positive 08/27/21 18: Antibody Screen NEGATIVE 08/27/21 18:22 08/27/21 16:39 Aerobic Blood Culture - Final Blood No growth in Aerobic bottle after 5 days. Anaerobic Blood Culture - Final 08/27/21 16:56 Aerobic Blood Culture - Preliminary Blood Coag neg staph not lugdunensis Anaerobic Blood Culture - Final No growth in Anaerobic bottle after 5 days. 08/30/21 12:49 Fungal Smear - Final Blood Fungal Culture - Preliminary No yeast or fungus isolated - Report 1, Additional Report to Follow. 08/27/21 17:52 Urine Culture - Preliminary Urine,Indwelling Cath Cherry albicans/dubliniensis Yeast not Cherry albicans/dub 08/28/21 18:06 Aerobic Blood Culture - Preliminary Blood No growth in Aerobic bottle after 48 hours. Anaerobic Blood Culture - Preliminary No growth in Anaerobic bottle after 48 hours. 08/28/21 18:05 Aerobic Blood Culture - Preliminary Blood No growth in Aerobic bottle after 48 hours. Anaerobic Blood Culture - Preliminary No growth in Anaerobic bottle after 48 hours. 08/25/21 12:48 Aerobic Blood Culture - Final Blood No growth in Aerobic bottle after 5 days. Anaerobic Blood Culture - Final No growth in Anaerobic bottle after 5 days. 08/25/21 12:30 Aerobic Blood Culture - Final Blood No growth in Aerobic bottle after 5 days. Anaerobic Blood Culture - Final No growth in Anaerobic bottle after 5 days. 08/25/21 07:34 Aerobic Blood Culture - Final Blood No growth in Aerobic bottle after 5 days. Anaerobic Blood Culture - Final 08/25/21 07:19 Aerobic Blood Culture - Final Blood No growth in Aerobic bottle after 5 days. Anaerobic Blood Culture - Final No growth in Anaerobic bottle after 5 days. 08/25/21 07:10 Urine Culture - Final Urine,Straight Cath No growth - less than 1,000 colonies/mL.
--- NOTE | 2021-09-02 10:03 | Electrocardiogram Report ---
Test Reason : Blood Pressure : / mmHG Vent. Rate : 118 BPM Atrial Rate : 118 BPM P-R Int : 158 ms QRS Dur : 098 ms QT Int : 328 ms P-R-T Axes : 004 -32 -02 degrees QTc Int : 459 ms Poor data quality, interpretation may be adversely affected Sinus tachycardia Left axis deviation Nonspecific ST abnormality Abnormal ECG When compared with ECG of 26-AUG-2021 06:45, Premature atrial complexes are no longer Present Confirmed by Isaiah Flood [id number] on 09/02/2021 10:03:06 AM Referred By: [facility] Confirmed By:Edwin Flood
--- NOTE | 2021-09-02 10:04 | History & Physical Bridge Note ---
Date of Service September 02, 2021 History & Physical Bridge Note I have examined the patient, reviewed the History & Physical and in the interval since the performance of the History & Physical I have noted the following changes of clinical significance: no changes noted
[2021-09-02] MEDS ORDERED: BUPIVACAINE/EPINEPHRINE 0.25% 1:200,000 30 ML VIAL ONE (10:19)
--- NOTE | 2021-09-02 10:58 | Post Operative Brief Note ---
PG Immediate Post Op with CF Date of Surgery September 02, 2021 Pre & Post Diagnosis Operation Date: 09/02/21 10:10 Pre-Op Diagnosis: Fever of unknown origin, malfunctioning mediport Post-Op Diagnosis: Fever of unknown origin, malfunctioning mediport I identified the patient and participated in the time-out.: Yes Procedure Operation Date: 09/02/21 10:10 Actual Procedures p Mediport Removal(Right) - Arsh Berrios DO Surgeon Arsh Berrios DO Tube Dispatcher None Estimated Blood Loss 5 Findings See Below Intact mediport and catheter Specimens Specimen Description: As Per Surgeon 1. Mediport catheter tip for culture Anesthesia Type MAC Complications none Disposition Disposition: Recovery Room
[2021-09-02] MEDS ORDERED: POTASSIUM CHLORIDE 20 MEQ/15 ML UDC PO ONE (11:00)
--- NOTE | 2021-09-02 11:00 | Operative Report ---
PG Post Operative Report Pre & Post Diagnosis Operation Date: 09/02/21 10:10 Pre-Op Diagnosis: Fever of unknown origin, malfunctioning mediport Post-Op Diagnosis: Fever of unknown origin, malfunctioning mediport I identified the patient and participated in the time-out.: Yes Procedure Operation Date: 09/02/21 10:10 Actual Procedures p Mediport Removal(Right) - Arsh Berrios DO Surgeon Arsh Berrios DO Meat And Seafood Manager None Estimated Blood Loss 5 Findings See Below Intact mediport and catheter Specimens Catheter tip for culture Drains None Anesthesia Type MAC Complications none Disposition Disposition: Recovery Room Indications 76 yo with FUO and manlfunctioning mediport Description of Procedure The patient was brought to the OR and placed in the supine position. At this time she underwent MAC anesthesia without problem. Her right chest and neck was prepped and draped in the usual sterile fashion. She was given appropriate pre- operative antibiotics. Timeout was called, procedure was verified as Mediport removal. Surgical, anesthesia and nursing teams agreed and the procedure was begun. Patient was then placed in Trendelenburg position. After injection of 0.25% Marcaine with epinephrine, a transverse incision directly through her old incision was made using a #15 blade scalpel. This was carried down directly to the port using electrocautery. At this time the catheter was delivered out of the incision. The sutures on the mediport itself were then cut and the entire mediport/catheter complex removed and passed off as specimen. Direct manual pressure on the right internal jugular vein was applied for 10 minutes. At this time the incision was irrigated until clear. Hemostasis was achieved using electrocautery. Hemostasis was complete. At this time the capsule was closed using 3-0 Vicryl. Deep dermal layer of skin was closed using 3-0 Vicryl and the skin was closed using 4-0 Monocryl. Sterile dressing was applied. All needle and sponge counts were correct x 2. The patient was then awakened from anesthesia and transported to PACU in stable condition. I attest to the content of the Intraoperative Record and any orders documented therein. Any exceptions are noted below.
[2021-09-02] MEDS: METOPROLOL TARTRATE 25 MG TAB PO SCH ×2 (12:23→19:59)
[2021-09-02] MEDS: ATORVASTATIN 40 MG TAB PO SCH (12:23)
[2021-09-02] MEDS: ASPIRIN 81 MG ECTAB PO SCH (12:23)
[2021-09-02] MEDS: amLODIPine BESYLATE 5 MG TAB PO SCH (12:23)
[2021-09-02] MEDS: PANTOprazole 40 MG TAB PO SCH (12:24)
[2021-09-02] MEDS: predniSONE 20 MG TAB PO SCH (12:24)
--- NOTE | 2021-09-02 13:10 | Anesthesiology Progress Note ---
Date of Service September 02, 2021 Anesthesia Post Procedure Vital Signs Vital Signs: Temp Pulse Pulse Pulse Pulse Resp BP 09/02/21 12:32 79 20 09/02/21 12:12 36.4 C L 81 20 09/02/21 11:45 37 C 81 22 09/02/21 11:35 85 22 09/02/21 11:25 82 18 09/02/21 11:15 79 15 09/02/21 11:05 36.2 C L 81 16 09/02/21 09:20 36.4 C L 84 18 09/02/21 07:22 36.5 C 80 18 09/02/21 06:10 79 09/02/21 04:00 36.9 C 88 20 09/01/21 23:00 36.4 C L 78 19 162/71 H 09/01/21 22:17 81 09/01/21 19:20 117 H 18 09/01/21 19:00 36.5 C 115 H 20 124/83 09/01/21 15:52 84 09/01/21 14:53 36.4 C L 85 18 128/77 BP Pulse Ox 09/02/21 12:32 105/69 93 09/02/21 12:12 110/77 92 09/02/21 11:45 113/62 90 09/02/21 11:35 114/67 91 09/02/21 11:25 110/63 90 09/02/21 11:15 100/53 L 91 09/02/21 11:05 99/57 L 91 09/02/21 09:20 135/73 96 09/02/21 07:22 122/72 96 09/02/21 06:10 09/02/21 04:00 124/79 93 09/01/21 23:00 91 09/01/21 22:17 09/01/21 19:20 134/75 91 09/01/21 19:00 91 09/01/21 15:52 09/01/21 14:53 91 Pain Intensity Generalized: Pain Intensity: 8 Transfer of Care Handoff Completed per policy Notes Mental Status: alert / awake / arousable Patient Amnestic to Procedure: Yes Nausea / Vomiting: adequately controlled Pain: adequately controlled Airway Patency, RR, SpO2: stable & adequate BP & HR: stable & adequate Hydration State: stable & adequate Anesthetic Complications: no major complications apparent
--- NOTE | 2021-09-02 16:01 | Hospitalist Progress Note ---
Date of Service September 02, 2021 Assessment & Plan (1) Cerebrovascular accident (CVA): Plan: - MRI brain revealing R parietal acute/subacute infarct - Case d/w neurology who felt that a formal consult was not needed - Obtained Echocardiogram: normal lv size w/ hyperdynamic systolic fxn, EF >70%, No RWMA. Moderate concentric LVH. Moderate mitral annular calcification. Normal RVSP. - ASA and Lipitor advised, Lipitor ordered but held as she was empirically on Dapto, has since been resumed since she is now off the Dapto - Speech therapy eval re-ordered d/t coughing spell while drinking water and new dx of stroke; appreciate assistance * Diet ordered on 08/29, required thickened liquids but upgraded today to thin liquids per ST note * Will require repeat VFSS ideally prior to d/c but could be done as an outpatient - PT/OT eval attempted (last attempt documented was 08/29), pt not able to participate, they attempted again on 09/01, pt not able to participate - Of note, pt's family was NOT aware of prior stroke in the frontotemporal region that is seen on MRI during this admission (2) Fever of unknown origin: Plan: - presented with SIRS criteria including tachycardia (124), fever (101.4), tachypnea (27), and marginal BP of 99/50 - Sources of infection include: grossly infected urine (cloudy, nitrite and leukocyte esterase+), urine cx pending + radiologic evidence of PNA with hypoxia thus meeting sepsis criteria - Also concerned regarding existing mediport which could also is another potential source of infection - Procalcitonin elevated at 2.25 on admission and uptrended 3.58-->1.65-->0.49 - CRP elevated at 27.70-->20.3-->7.18-->3.84 - Treated upfront with aggressive IVF hydration - APAP as needed for fever, would not utilize unless temp is greater than or eq ual to 38C - Held antihypertensives d/t marginal BP (which has since improved w/ hydration) - RUQ ultrasound revealed no evidence of acute/chronic cholecystitis as possible source - Blood cultures: one out of the total 8 tubes collected is positive for GPC in clusters (likely staph) -- suspect that this is a contaminant - Recently hospitalized 08/15-08/21 with similar presentation w/o obvious source identified; however, was treated empirically w/ Doxy for possible tick-borne illness - Was initially hospitalized with empiric Zosyn but despite greater than 48 hours of this, was febrile, tachycardic and hypotensive. Antibiotic coverage broadened to Zosyn + Levaquin + linezolid * Zosyn covering for HAP/Aspiration PNA (also providing pseudomonal coverage given recent hospitalization with d/c to SNF) * Levaquin adds double antipseudomonal coverage * Zyvox covered MRSA and also provided lung coverage. Pharmacy suggested transition of linezolid to daptomycin given negative MRSA nasal swab. Utilizing daptomycin really limits oral options as she failed doxycycline. * Antibiotic regimen discussed with pharmacy. Thought was to de-escalate to Levaquin/linezolid. Pharmacy does not want linezolid given unless recommended by infectious disease. Subsequently, ID consulted, appreciate recommendations. - Fungal blood cultures ordered and pending - Patient did have a fever spike on 08/28 (right around 48-hours of broadened coverage) * At this time, it was uncertain if her Keytruda was potentially causing an inflammatory response for which IV steroids were initiated * Again, certainly possible (although likelihood is low) that mediport line could be infected, line removed today (09/02) and cultures drawn/pending * Inflammatory markers continue to downtrend. IV steroids de-escalated to oral Prednisone which was started 08/31. (3) Acute UTI: Plan: - UA appears grossly infected (cloudy, leukocyte esterase and nitrite positive). Perhaps culture skewed given oral Doxycycline on board [employer] - CT of the abdomen and pelvis without pyelonephrosis/hydronephrosis/obstructive uropathy - Urine cx with growth of 2 different types of yeast, 1st identified is marsha albicans, second is yet to be identified * Empirically started on fluconazole 200mg daily, ID recommends 5 days which will be completed on 09/03 * Did call micro and ask that it be sent out for sensitivities - fungal BC ordered and pending (4) Pneumonia: Plan: - CT showing small pleural effusions bilaterally with bibasilar infiltrates (new in comparison to CT done on 08/17/2021) - IV Zosyn (which would provide adequate antipseudomonal coverage given recent hospital stay). - in addition, MBS done during recent stay and there was concern for silent aspi ration at that time. Zosyn would provide adequate gram-negative and anaerobic coverage. * Patient n.p.o. upfront given her obtunded state and need for airway protection * Although MBS does show concern for silent aspiration, this was discussed w/ speech therapy (Vandana Sherwood) who adamantly reports patient does not have aspiration concerns * 08/27: patient became more A&O-was initiated full liquid. Advance to pured and minced/moist as tolerated at discretion of ST * Concerns from staff regarding ability to eat and signs of aspiration for which speech therapy was asked to reevaluate the patient (especially given her subacute CVA) * Assessed by ST on 08/29 with recommendations for minced and moist diet, thin liquids, aspiration precautions and planned VFSS on 09/01 or 09/02 - MRSA nasal swab negative on 08/15 and again 08/25 which is why she was not initially started on MRSA coverage (as also on doxycycline [employer]). MRSA coverage added on 08/27 given persistent sepsis syndrome despite IV antibiotics - Continue supplemental oxygen to maintain a pulse ox of >90 % - continue nebulized treatments prn - Sputum culture ordered (but uncollected as unable to expectorate) - Did discuss CODE STATUS with sisters on 08/25 Patient is a full code - IV Lasix given 08/28 and 08/30 given pulmonary edema likely secondary to aggressive fluid resuscitation from sepsis - IV abx de-escalated to Levaquin on 08/31, will complete on 09/03 (that will have been total of 10 days of IV abx therapy which is more than sufficient) (5) Hypokalemia: Plan: - Both oral and IV replacement has been ordered for K+ of 2.5 - Repeat BMP @ 1700 ordered and K+ had normalized to 3.5 - This AM K+ 3.1, replacement ordered (6) Encephalopathy: Plan: - Metabolic Encephalopathy (from PNA/UTI/CVA) - Showing favorable response. Has been showing favorable response although talkative and nonsensical at times - obtunded on 08/30 (had been improving up until this point). Repeat COVID (not collected) in addition to ABG and ammonia level (both of which were normal)-- suspect a component of hospital acquired delirium at this point - CT of the head done upon arrival showing no acute intracranial process. - MRI showed 6 mm focus of restricted diffusion in the right parietal lobe suggestive of acute versus subacute lacunar infarct--?contributing (7) Elevated troponin: Plan: - HS trop 18.0 without acute EKG changes - FU trop downtrending (15.1) and repeat EKG without acute changes - suspect elevated from myocardial demand ischemia rather than unstable plaque (8) Hypomagnesemia: Plan: - Replaced (9) Right arm pain: Plan: - suspect was a mild/developing cellulitis that now seems to be improving - initially, unable to vocalize pain but nursing report patient yelling out when arm is touched - venous doppler done despite being on Eliquis (as patient with known metastatic Ca): negative for DVT - erythema, edema improving. 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 Received Cathflo but line still seems nonfunctional - d/w general surgery, will plan to remove line on Wednesday as nonfunctional line and unable to rule out this being source of infection (11) History of DVT (deep vein thrombosis): Plan: - On Eliquis chronicallyunable to tolerate oral medication given obtunded state - For now, utilizing Lovenox - Right upper extremity venous Doppler shows no evidence of DVT - Keeping on Lovenox as it will be easier to stop prior to her Mediport removal on Wednesday - Can then resume Eliquis after mediport is removed (12) Hypertension: Plan: - Hold oral antihypertensive agents given hypotension/sepsis syndrome (including amlodipine and metoprolol) - 08/27: BP improved but meds kept on hold - Meds still held on 08/30 due to excessive somnolence - She is awake/alert on on 08/31, HTN meds reordered (13) Melanoma: Plan: - with metastasis - on Keytruda infusions every 3 weeks - No evidence of cerebral metastasis seen on MRI Plan: Patient has been hemodynamically stable and has since defervesced (last fever spike 08/28). Plan is to de-escalate antibiotic coverage to Levaquin and Fluconazole (stopping Zosyn and Daptomycin). Continue to monitor closely for fever spikes (has had none). Mediport removed today. Hgb dropped to 8.3 today, a repeat has been ordered as well as an order to heme test stool. Will repeat CBC in AM. Added PPI (as she has been on steroids last 3 days) for GI prophylaxis. Resume Eliquis can be resumed tonight if stool is heme negative. ID consult done today, advised stopping antibiotics as they also agreed that her check point inhibitors could have been the cause of her sepsis picture on admission. Was hydrated gently yesterday for mild dehydration. Na normalized on repeat BMP. I suspect that her ongoing electrolyte imbalances are d/t poor PO intake. Added boost/ensure supplementation, consulted dietary. Will transfer off of telemetry floor to med/surg. PT/OT consulted but has not been able to work with her due to her confusion and inability to follow directions. Repeat VFSS is to be done tomorrow prior to d/c. Case management d/w pt's son, Octaviano, who is now making decisions on behalf of his mother. He has requested that she go to a SNF that is closer to where he lives. Bed available at [facility] tomorrow but pending authorization. Unfortunately, it is not clear whether her mentation will improve once she is out of the hospital. Clinically she is stable for d/c to SNF for rehab in the next 24-48 hours barring any further fevers or other complications. Plan has been d/w Dr. Layton Ceballos in detail. Admission and Anticipated Discharge Date Admission Date: August 25, 2021 Subjective Patient was seen at bedside this afternoon as she was in the OR during morning rounds. She remains pleasantly confused. Offers no complaints, able to follow some simple commands. Review of Systems Review of Systems: ROS unobtainable Physical Exam Physical Exam: GENERAL: 76 yo well-developed, well-nourished elderly WF. NAD. LUNGS: Diminished in bases bilaterally CARDIOVASCULAR: Regular rate and rhythm. ABDOMEN: Soft, non-tender and non-distended. BS normoactive x 4 quad. EXTREMITIES: RUE edema noted. 1+ edema in b/l LE. Non-tender. Peripheral pulses +2/4. NEUROLOGIC: A&Ox1 (self), speech more clear. No gross focal neuro deficits. PSYCHIATRIC: Confused but cooperative. Appropriate mood and affect. SKIN: Warm, dry, intact. Groin folds are excoriated and breakdown noted on left buttocks Results & Data Results & Data ([facility]) Vital Signs (Past 12 Hours) Vital Signs Temp Pulse Pulse Pulse Resp BP Pulse Ox 09/02/21 15:44 36.5 C 80 17 128/76 92 09/02/21 14:20 77 09/02/21 13:20 36.4 C L 98 H 17 120/73 92 09/02/21 12:37 78 09/02/21 12:32 79 20 105/69 93 09/02/21 12:12 36.4 C L 81 20 110/77 92 09/02/21 11:45 37 C 81 22 113/62 90 09/02/21 11:35 85 22 114/67 91 09/02/21 11:25 82 18 110/63 90 09/02/21 11:15 79 15 100/53 L 91 09/02/21 11:05 36.2 C L 81 16 99/57 L 91 09/02/21 09:20 36.4 C L 84 18 135/73 96 09/02/21 07:22 36.5 C 80 18 122/72 96 09/02/21 06:10 79 09/02/21 04:00 36.9 C 88 20 124/79 93 Laboratory Results 09/02/21 06:36 09/02/21 06:36 PG Care Time/CCT Total # of Minutes Spent Total Time Spent with Patient: Total time spent is greater than 50% in coordination of care (as documented) at patient's floor/unit and/or counseling patient: Coding Level of Care Code 29712 Subseq Hosp Care Lvl 2 Diagnoses Cerebrovascular accident (CVA) I63.9 Fever of unknown origin R50.9 Acute UTI N39.0 Pneumonia J18.9 Hypokalemia E87.6 Encephalopathy G93.40 Elevated troponin R77.8 Hypomagnesemia E83.42 Right arm pain M79.601 Central line complication T82.9XXA History of DVT (deep vein thrombosis) Z86.718 Hypertension I10 Melanoma C43.9
[2021-09-02 16:55] LABS: Hematocrit (blood only) 28.5 % (37-47); Hemoglobin 9.1 g/dL (12.0-16.0)
[2021-09-02] MEDS: APIXABAN 5 MG TABLET PO SCH (19:58)
[2021-09-03] MEDS: CLOTRIMAZOLE 10 MG TROCHE BUCCAL SCH ×5 (06:00→22:44)
[2021-09-03 06:27] LABS: Basophils # (auto) 0.01 K/uL (0-0.2); Basophils % (auto) 0.1 %; Eosinophils # (auto) 0.04 K/uL (0-0.5); Eosinophils % (auto) 0.3 %; Hematocrit (blood only) 28.2 % (37-47); Hemoglobin 8.8 g/dL (12.0-16.0); Immature Granulocytes # (auto) 0.62 K/uL (0.00-0.02); Immature Granulocytes % (auto) 4.6 %; Lymphocytes # (auto) 1.63 K/uL (1.2-3.4); Lymphocytes % (auto) 12.1 %; Mean Corpuscular Hemoglobin 28.2 pg (25-34); Mean Corpuscular Hgb Conc 31.2 g/dL (32-36); Mean Corpuscular Volume 90.4 fL (80-100); Mean Platelet Volume 9.3 fL (7.4-10.4); Monocytes # (auto) 1.41 K/uL (0.11-0.59); Monocytes % (auto) 10.5 %; Neutrophils # (auto) 9.72 K/uL (1.4-6.5); Neutrophils % (auto) 72.4 %; Nucleated RBC # (auto) 0.03 K/uL (0-0); Nucleated RBC % (auto) 0.3 %; Platelet Count 463 K/uL (130-400); RDW Coefficient of Variation 16.6 % (11.5-14.5); RDW Standard Deviation 53.9 fL (36.4-46.3); Red Blood Count 3.12 M/uL (4.2-5.4); White Blood Count 13.43 K/uL (4.8-10.8)
[2021-09-03 07:06] LABS: BUN Creatinine Ratio 27.1 (10-20); Calcium 8.4 mg/dl (8.5-10.1); Creatinine Clr Calc Pharmacy 55.2 ml/min; Potassium 3.8 mmol/L (3.5-5.1)
[2021-09-03] MEDS: APIXABAN 5 MG TABLET PO SCH (07:47)
[2021-09-03] MEDS: ASPIRIN 81 MG ECTAB PO SCH (07:47)
[2021-09-03] MEDS: FLUCONAZOLE 200 MG/100 ML BAG IV SCH (07:47)
[2021-09-03] MEDS: amLODIPine BESYLATE 5 MG TAB PO SCH (07:47)
[2021-09-03] MEDS: METOPROLOL TARTRATE 25 MG TAB PO SCH ×2 (07:48→20:20)
[2021-09-03] MEDS: MENTHOL-ZINC OXIDE 360 APPLN/120 GM TUBE EXT SCH ×2 (07:49→20:20)
[2021-09-03] MEDS: PANTOprazole 40 MG TAB PO SCH ×2 (07:49→20:20)
[2021-09-03] MEDS: predniSONE 10 MG TABLET PO SCH (07:49)
--- NOTE | 2021-09-03 11:39 | Surgery Progress Note ---
Date of Service September 03, 2021 Assessment & Plan (1) Central line complication: Plan: Leave Steri-Strips on until they fall off She is okay to be discharged from a surgery standpoint No need for follow-up Admission and Anticipated Discharge Date Admission Date: August 25, 2021 Subjective Patient seen and examined. No acute events overnight. Physical Exam Constitutional: WD/WN, vitals as above Neck: No hematoma or ecchymosis Chest (Breasts): Additional Comments: Mediport incision removal site with some ecchymosis surrounding, no hematoma Results & Data ([facility]) Vital Signs (Past 12 Hours) Vital Signs Temp Pulse Pulse Resp BP BP Pulse Ox 09/03/21 11:22 36.3 C L 74 71 16 125/75 120/72 95 09/03/21 07:42 36.3 C L 71 16 125/75 95 PG Care Time/CCT Total # of Minutes Spent Total Time Spent with Patient: Total time spent is greater than 50% in coordination of care (as documented) at patient's floor/unit and/or counseling patient: Coding Level of Care Code None Diagnoses Central line complication T82.9XXA
[2021-09-03] MEDS: ATORVASTATIN 40 MG TAB PO SCH (11:55)
--- NOTE | 2021-09-03 12:48 | Discharge Summary ---
Date of Service September 03, 2021 Admission HPI Per Admitting Provider Mrs. Newman is a 76-year-old white female with a past medical history of metastatic melanoma, GERD, and HTN. She was sent to the emergency department due to increased confusion. Patient unable to provide any form of history. History obtained from her sisters and the chart. She was just here 08/15 through 08/21 with increased confusion, tachycardia, and hypotension. No obvious source of infection found at that timeurine culture showed no growth, chest x-ray nonacute, CT of the chest showed no acute cardiopulmonary process, blood cultures negative. Patient was initially treated with Zosyn and vancomycin at that time. Was subsequently transitioned to doxycycline for concern for tickborne illness. Was subsequently discharged to [place] [facility] for continued inpatient rehabilitation. Remains on oral doxycycline has been doing well up until this morning when she was found to have increased confusion and tachycardia which prompted her to be sent to the emergency department for further evaluation and care. Patient is marginally hypotensive (99/50), tachypneic (27), hypoxic (started on supplemental O2 in route and was 89% on 2L) and febrile (101.4 F). Her urinalysis is grossly infected as it is cloudy, nitrite positive and leukocyte esterase positive. She does not have significant leukocytosis but does have a left shift on her differential. Chest x-ray shows no acute cardiopulmonary process; however, CT of the chest shows bibasilar infiltrates and small pleural effusions. Procalcitonin is elevated at 2.25. COVID is negative. Her lactic acid is normal at 1.2. High-sensitivity troponin is elevated at [address] The [address] of her head shows no acute pathology. Per nursing staff, she is yelling in pain when anyone touches her right arm. Patient will be hospitalized with infectious encephalopathy, UTI, and bibasilar pneumonia. Discharge Exam GENERAL: 76 yo well-developed, well-nourished elderly WF. NAD. LUNGS: Diminished in bases bilaterally CARDIOVASCULAR: Regular rate and rhythm. ABDOMEN: Soft, non-tender and non-distended. BS normoactive x 4 quad. EXTREMITIES: RUE edema noted. 1+ edema in b/l LE. Non-tender. Peripheral pulses +2/4. NEUROLOGIC: A&Ox1 (self), speech more clear. No gross focal neuro deficits. PSYCHIATRIC: Confused but cooperative. Appropriate mood and affect. SKIN: Warm, dry, intact. Groin folds are excoriated and breakdown noted on left buttocks Discharge Data Allergies Allergy/AdvReac Type Severity Reaction Status Date / Time tramadol Allergy Mild NASUEA/CONF Verified 01/15/21 08:49 USION cephalexin [From Keflex] AdvReac Mild upset Verified 01/15/21 08:49 stomach Consultations 08/25/21 09:58 ED Decision to Admit Stat 08/27/21 13:56 Consult General Surgery Routine 08/27/21 17:59 Consult Nephrology Routine 08/30/21 12:04 Consult Infectious Diseases Routine Procedures Performed Operation Date: 09/01/21 11:40 <No data on this case meets the specified criteria> Operation Date: 09/02/21 10:10 Actual Procedures p Mediport Removal(Right) - Arsh Berrios, Ordered Studies 08/25/21 07:07 CT abd pelvis wo con Stat CT chest diagnostic wo con Stat CT head/brain wo con Stat 08/25/21 11:47 US venous doppler UE RT Stat 08/27/21 16:26 MR brain wo con Urgent US liver Urgent 08/27/21 18:20 CT abd pelvis wo con Stat 08/28/21 07:00 US effusion-chest/mediastinum Routine 08/28/21 09:32 US carotid doppler BI Routine 09/03/21 11:00 FL video swallow Routine Hospital Course (1) Cerebrovascular accident (CVA): - MRI brain revealing R parietal acute/subacute infarct - Case d/w neurology who felt that a formal consult was not needed - Obtained Echocardiogram: normal lv size w/ hyperdynamic systolic fxn, EF >70%, No RWMA. Moderate concentric LVH. Moderate mitral annular calcification. Normal RVSP. - ASA and Lipitor advised, Lipitor ordered but held as she was empirically on Dapto, has since been resumed since she is now off the Dapto - Speech therapy eval re-ordered d/t coughing spell while drinking water and new dx of stroke; appreciate assistance * Diet ordered on 08/29, required thickened liquids but upgraded today to thin liquids per ST note * Will require repeat VFSS ideally prior to d/c but could be done as an outpatient - PT/OT eval attempted (last attempt documented was 08/29), pt not able to participate, they attempted again on 09/01, pt not able to participate - Of note, pt's family was NOT aware of prior stroke in the frontotemporal region that is seen on MRI during this admission (2) Fever of unknown origin: - presented with SIRS criteria including tachycardia (124), fever (101.4), tachypnea (27), and marginal BP of 99/50 - Sources of infection include: grossly infected urine (cloudy, nitrite and leukocyte esterase+), urine cx pending + radiologic evidence of PNA with hypoxia thus meeting sepsis criteria - Also concerned regarding existing mediport which could also is another potential source of infection - Procalcitonin elevated at 2.25 on admission and uptrended 3.58-->1.65-->0.49 - CRP elevated at 27.70-->20.3-->7.18-->3.84 - Treated upfront with aggressive IVF hydration - APAP as needed for fever, would not utilize unless temp is greater than or equal to 38C - Held antihypertensives d/t marginal BP (which has since improved w/ hydration) - RUQ ultrasound revealed no evidence of acute/chronic cholecystitis as possible source - Blood cultures: one out of the total 8 tubes collected is positive for GPC in clusters (likely staph) -- suspect that this is a contaminant - Recently hospitalized 08/15-08/21 with similar presentation w/o obvious source identified; however, was treated empirically w/ Doxy for possible tick-borne illness - Was initially hospitalized with empiric Zosyn but despite greater than 48 hours of this, was febrile, tachycardic and hypotensive. Antibiotic coverage broadened to Zosyn + Levaquin + linezolid * Zosyn covering for HAP/Aspiration PNA (also providing pseudomonal coverage given recent hospitalization with d/c to SNF) * Levaquin adds double antipseudomonal coverage * Zyvox covered MRSA and also provided lung coverage. Pharmacy suggested transition of linezolid to daptomycin given negative MRSA nasal swab. Utilizing daptomycin really limits oral options as she failed doxycycline. * Antibiotic regimen discussed with pharmacy. Thought was to de-escalate to Levaquin/linezolid. Pharmacy does not want linezolid given unless recommended by infectious disease. Subsequently, ID consulted, appreciate recommendations. - Fungal blood cultures ordered and pending - Patient did have a fever spike on 08/28 (right around 48-hours of broadened coverage) * At this time, it was uncertain if her Keytruda was potentially causing an inflammatory response for which IV steroids were initiated * Again, certainly possible (although likelihood is low) that mediport line could be infected, line removed today (09/02) and cultures drawn/pending * Inflammatory markers continue to downtrend. IV steroids de-escalated to oral Prednisone which was started 08/31. (3) Acute UTI: - UA appears grossly infected (cloudy, leukocyte esterase and nitrite positive). Perhaps culture skewed given oral Doxycycline on board TAILOR FITTER - CT of the abdomen and pelvis without pyelonephrosis/hydronephrosis/obstructive uropathy - Urine cx with growth of 2 different types of yeast, 1st identified is marsha albicans, second is yet to be identified * Empirically started on fluconazole 200mg daily, ID recommends 5 days which will be completed on 09/03 * Did call micro and ask that it be sent out for sensitivities - fungal BC ordered and pending (4) Pneumonia: - CT showing small pleural effusions bilaterally with bibasilar infiltrates (new in comparison to CT done on 08/17/2021) - IV Zosyn (which would provide adequate antipseudomonal coverage given recent hospital stay). - in addition, MBS done during recent stay and there was concern for silent aspiration at that time. Zosyn would provide adequate gram-negative and anaerobic coverage. * Patient n.p.o. upfront given her obtunded state and need for airway protection * Although MBS does show concern for silent aspiration, this was discussed w/ speech therapy (Vandana Sherwood) who adamantly reports patient does not have aspiration concerns * 08/27: patient became more A&O-was initiated full liquid. Advance to pured and minced/moist as tolerated at discretion of ST * Concerns from staff regarding ability to eat and signs of aspiration for which speech therapy was asked to reevaluate the patient (especially given her subacute CVA) * Assessed by ST on 08/29 with recommendations for minced and moist diet, thin liquids, aspiration precautions and planned VFSS on 09/01 or 09/02 - MRSA nasal swab negative on 08/15 and again 08/25 which is why she was not initially started on MRSA coverage (as also on doxycycline TAILOR FITTER). MRSA coverage added on 08/27 given persistent sepsis syndrome despite IV antibiotics - Continue supplemental oxygen to maintain a pulse ox of >90 % - continue nebulized treatments prn - Sputum culture ordered (but uncollected as unable to expectorate) - Did discuss CODE STATUS with sisters on 08/25 Patient is a full code - IV Lasix given 08/28 and 08/30 given pulmonary edema likely secondary to aggressive fluid resuscitation from sepsis - IV abx de-escalated to Levaquin on 08/31, will complete on 09/03 (that will have been total of 10 days of IV abx therapy which is more than sufficient) (5) Hypokalemia: - Both oral and IV replacement has been ordered for K+ of 2.5 - Repeat BMP @ 1700 ordered and K+ had normalized to 3.5 - This AM K+ 3.1, replacement ordered (6) Encephalopathy: - Metabolic Encephalopathy (from PNA/UTI/CVA) - Showing favorable response. Has been showing favorable response although talkative and nonsensical at times - obtunded on 08/30 (had been improving up until this point). Repeat COVID (not collected) in addition to ABG and ammonia level (both of which were normal)-- suspect a component of hospital acquired delirium at this point - CT of the head done upon arrival showing no acute intracranial process. - MRI showed 6 mm focus of restricted diffusion in the right parietal lobe suggestive of acute versus subacute lacunar infarct--?contributing (7) Elevated troponin: - HS trop 18.0 without acute EKG changes - FU trop downtrending (15.1) and repeat EKG without acute changes - suspect elevated from myocardial demand ischemia rather than unstable plaque (8) Hypomagnesemia: - Replaced (9) Right arm pain: - suspect was a mild/developing cellulitis that now seems to be improving - initially, unable to vocalize pain but nursing report patient yelling out when arm is touched - venous doppler done despite being on Eliquis (as patient with known metastatic Ca): negative for DVT - erythema, edema improving. 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 Received Cathflo but line still seems nonfunctional - d/w general surgery, will plan to remove line on Wednesday as nonfunctional line and unable to rule out this being source of infection (11) History of DVT (deep vein thrombosis): - On Eliquis chronicallyunable to tolerate oral medication given obtunded state - For now, utilizing Lovenox - Right upper extremity venous Doppler shows no evidence of DVT - Keeping on Lovenox as it will be easier to stop prior to her Mediport removal on Wednesday - Can then resume Eliquis after mediport is removed (12) Hypertension: - Hold oral antihypertensive agents given hypotension/sepsis syndrome (including amlodipine and metoprolol) - 08/27: BP improved but meds kept on hold - Meds still held on 08/30 due to excessive somnolence - She is awake/alert on on 08/31, HTN meds reordered (13) Melanoma: - with metastasis - on Keytruda infusions every 3 weeks - No evidence of cerebral metastasis seen on MRI Patient has been hemodynamically stable and has since defervesced (last fever spike 08/28). Plan is to de-escalate antibiotic coverage to Levaquin and Fluconazole (stopping Zosyn and Daptomycin). Continue to monitor closely for fever spikes (has had none). Mediport removed today. Hgb dropped to 8.3 today, a repeat has been ordered as well as an order to heme test stool. Will repeat CBC in AM. Added PPI (as she has been on steroids last 3 days) for GI prophylaxis. Resume Eliquis can be resumed tonight if stool is heme negative. ID consult done today, advised stopping antibiotics as they also agreed that her check point inhibitors could have been the cause of her sepsis picture on admission. Was hydrated gently yesterday for mild dehydration. Na normalized on repeat BMP. I suspect that her ongoing electrolyte imbalances are d/t poor PO intake. Added boost/ensure supplementation, consulted dietary. Will transfer off of telemetry floor to med/surg. PT/OT consulted but has not been able to work with her due to her confusion and inability to follow directions. Repeat VFSS is to be done tomorrow prior to d/c. Case management d/w pt's son, Octaviano, who is now making decisions on behalf of his mother. He has requested that she go to a SNF that is closer to where he lives. Bed available at [facility] tomorrow but pending authorization. Unfortunately, it is not clear whether her mentation will improve once she is out of the hospital. Clinically she is stable for d/c to SNF for rehab in the next 24-48 hours barring any further fevers or other complications. Plan has been d/w Dr. Layton Ceballos in detail. Discharge Plan Discharge Items Patient Disposition: Transfer [facility] Reason For Visit: ENCEPHALOPATHY,PNA Activity: As commented below Activity Comment: with assistance as tolerated Non-emergency contact: Primary Care Provider Call non-emergency contact if: you have any medication questions, your symptoms worsen and your temperature is above 101 Follow-up/Referrals: [facility] [Primary Care Provider] - Diet: Carb Consistent or DM2 Diet Texture: Dental soft (bite-sized) Diet Comment: minced and moist Addtl Attending Provider Instructions: Patient was hospitalized due to concern for a severe infection which was felt to be due to pneumonia. She was treated aggressively with a variety of antibiotics throughout the hospitalization. At this time, she has completed a full course of antibiotics and therefore, will not need any more upon discharge. It is still not entirely clear if she truly had an infection or if she was experiencing an "infection-like" picture due to the immunotherapy that she is on (Keytruda) for her metastatic melanoma. PT/OT sessions were attempted multiple times throughout the hospitalization. Unfortunately, patient has been unable to participate due to her confusion and inability to follow directions. It is advised that further attempts at therapy are made as her mentation may improve as she is out of the hospital. Some of her confusion is thought to be possibly related to hospital delirium. Patient is currently on immunotherapy for her metastatic melanoma, as previously mentioned. These medications can cause immune activated responses that look like infection and can even cause encephalitis. It has been discussed with patient's son, Octaviano, that she follow up with her oncologist and determine the benefits versus risks of resuming this medication. Given h Pending Studies at Discharge: No Stand-Alone Forms: [facility] Skilled Items Patient informed of condition?: Yes DNR: No Discharge Level of Care: Skilled Communicable Disease: No Discharge Prognosis: Improving Lines: None Urinary Catheter: No Medications and DC Order Prescriptions: New atorvastatin 40 mg Tablet 40 mg PO QAM Qty: 30 RF: 0 aspirin 81 mg Tablet,Delayed Release (Dr/Ec) 81 mg PO QAM Qty: 30 RF: 0 prednisone 10 mg tablet 10 mg PO DAILY Qty: 18 RF: 0 Continued diphenhydramine HCl [Benadryl] 25 mg capsule 25 mg PO HS PRN (Reason: Sleep) RF: 0 metoprolol tartrate 25 mg tablet 12.5 mg PO BID RF: 0 amlodipine [Norvasc] 5 mg Tablet 5 mg PO QAM RF: 0 multivitamin Tablet 1 tab PO QAM RF: 0 cholecalciferol (vitamin D3) [Vitamin D3] 25 mcg (1,000 unit) Tablet 25 mcg PO QAM RF: 0 cetirizine [Zyrtec] 10 mg Tablet 10 mg PO QAM RF: 0 montelukast 10 mg tablet 10 mg PO DAILY RF: 0 esomeprazole magnesium 20 mg capsule,delayed release(DR/EC) 20 mg PO DAILY RF: 0 Eliquis 5 mg tablet 5 mg PO DAILY RF: 0 nystatin 100,000 unit/mL Suspension 5 ml PO QID Qty: 140 RF: 0 triamcinolone acetonide 0.1 % Cream 1 applic EXT QID PRN (Reason: intertrigo left flank) Qty: 1 RF: 0 Discontinued omeprazole 20 mg Tablet,Delayed Release (Dr/Ec) 20 mg PO QAM RF: 0 doxycycline hyclate 100 mg capsule 100 mg PO BID Qty: 23 RF: 0 Admission Data Admit Date/Time: 08/25/21 10:37 Attending Provider: Layton Ceballos Admit Provider: Tres Monge Primary Care Provider: [facility] Other Providers: [facility] ; Shanell Jefferson ; Paolo Ceballos ; Paolo Glaser ; Ran Landa ; Vandana Fitch ; Destin Fernandez I. ; Darvin Sellers II ; Rubi Reilly ; Lawson Caballero ; Noah Zhou Other Interventions: Discharge Summary Assessment (RN) Last Done: 09/03/21 11:22 Coding Diagnoses Cerebrovascular accident (CVA) I63.9 Fever of unknown origin R50.9 Acute UTI N39.0 Pneumonia J18.9 Hypokalemia E87.6 Encephalopathy G93.40 Elevated troponin R77.8 Hypomagnesemia E83.42 Right arm pain M79.601 Central line complication T82.9XXA History of DVT (deep vein thrombosis) Z86.718 Hypertension I10 Melanoma C43.9
--- NOTE | 2021-09-03 13:01 | Hospitalist Progress Note ---
Date of Service September 03, 2021 Assessment & Plan (1) Cerebrovascular accident (CVA): Plan: - MRI brain revealing R parietal acute/subacute infarct - Case d/w neurology who felt that a formal consult was not needed - Obtained Echocardiogram: normal lv size w/ hyperdynamic systolic fxn, EF >70%, No RWMA. Moderate concentric LVH. Moderate mitral annular calcification. Normal RVSP. - ASA and Lipitor advised, Lipitor ordered but held as she was empirically on Dapto, has since been resumed since she is now off the Dapto - Speech therapy eval re-ordered d/t coughing spell while drinking water and new dx of stroke; appreciate assistance * Diet ordered on 08/29, required thickened liquids but upgraded today to thin liquids per ST note * Will require repeat VFSS ideally prior to d/c but could be done as an outpatient--she is to have this done today 09/03 - PT/OT eval attempted (last attempt documented was 08/29), pt not able to participate, they attempted again on 09/01, pt not able to participate due to not following directions - Of note, pt's family was NOT aware of prior stroke in the frontotemporal region that is seen on MRI during this admission (2) Fever of unknown origin: Plan: - presented with SIRS criteria including tachycardia (124), fever (101.4), tachypnea (27), and marginal BP of 99/50 - Sources of infection include: grossly infected urine (cloudy, nitrite and leukocyte esterase+), urine cx pending + radiologic evidence of PNA with hypoxia thus meeting sepsis criteria - Procalcitonin elevated at 2.25 on admission and uptrended 3.58-->then downtrended to 1.65-->0.49-->0.16 - CRP elevated at 27.70-->20.3-->7.18-->3.84 - Treated upfront with aggressive IVF hydration - APAP as needed for fever, would not utilize unless temp is greater than or equal to 38C - Held antihypertensives d/t marginal BP (which has since improved w/ hydration) - RUQ ultrasound revealed no evidence of acute/chronic cholecystitis as possible source - Blood cultures: one out of the total 8 tubes collected is positive for GPC in clusters (likely staph) -- suspect that this is a contaminant - Recently hospitalized 08/15-08/21 with similar presentation w/o obvious source identified; however, was treated empirically w/ Doxy for possible tick-borne illness - Was initially hospitalized with empiric Zosyn but despite greater than 48 hours of this, was febrile, tachycardic and hypotensive. Antibiotic coverage broadened to Zosyn + Levaquin + linezolid * Zosyn covering for HAP/Aspiration PNA (also providing pseudomonal coverage given recent hospitalization with d/c to SNF) * Levaquin adds double antipseudomonal coverage * Zyvox covered MRSA and also provided lung coverage. Pharmacy suggested transition of linezolid to daptomycin given negative MRSA nasal swab. Utilizing daptomycin really limits oral options as she failed doxycycline. * Antibiotic regimen discussed with pharmacy. Thought was to de-escalate to Levaquin/linezolid. Pharmacy does not want linezolid given unless recommended by infectious disease. Subsequently, ID consulted, appreciate recommendations. * ID evaluated on 09/02, did feel that it is very likely that Keytruda is playing a role in her septic presentation. Does not feel that further antibiotic therapy is warranted. Completed 10 day course as of 09/03. - Fungal blood cultures ordered and NGTD - Patient did have a fever spike on 08/28 (right around 48-hours of broadened coverage) * At this time, it was uncertain if her Keytruda was potentially causing an inflammatory response for which IV steroids were initiated * Again, certainly possible (although likelihood is low) that mediport line could be infected, line removed today (09/02) and cultures drawn NGTD * Inflammatory markers continue to downtrend. IV steroids de-escalated to oral Prednisone which was started 08/31. (3) Acute UTI: Plan: - UA appears grossly infected (cloudy, leukocyte esterase and nitrite positive). 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 - in addition, MBS done during recent stay and there was concern for silent aspiration at that time. Zosyn would provide adequate gram-negative and anae robic coverage. * Patient n.p.o. upfront given her obtunded state and need for airway protection * Although MBS does show concern for silent aspiration, this was discussed w/ speech therapy (Vandana Sherwood) who adamantly reports patient does not have aspiration concerns * 08/27: patient became more A&O-was initiated full liquid. Advance to pured and minced/moist as tolerated at discretion of ST * Concerns from staff regarding ability to eat and signs of aspiration for which speech therapy was asked to reevaluate the patient (especially given her subacute CVA) * Assessed by ST on 08/29 with recommendations for minced and moist diet, thin liquids, aspiration precautions and planned VFSS on 09/01 or 09/02 - MRSA nasal swab negative on 08/15 and again 08/25 which is why she was not initially started on MRSA coverage (as also on doxycycline [facility]ASH [employer]LECTOR). MRSA coverage added on 08/27 given persistent sepsis syndrome despite IV antibiotics - Continue supplemental oxygen to maintain a pulse ox of >90 % - continue nebulized treatments prn - Sputum culture ordered (but uncollected as unable to expectorate) - Did discuss CODE STATUS with sisters on 08/25 Patient is a full code - IV Lasix given 08/28 and 08/30 given pulmonary edema likely secondary to aggressive fluid resuscitation from sepsis - IV abx de-escalated to Levaquin on 08/31, completes on 09/03 totalling 10 days of IV abx therapy (ID recommends stopping abx at this time) (5) Hypokalemia: Plan: - Both oral and IV replacement has been ordered for K+ of 2.5 - Repeat BMP @ 1700 ordered and K+ had normalized to 3.5 - K+ 3.1 on 08/31, replaced and normalized (6) Encephalopathy: Plan: - Metabolic Encephalopathy (from PNA/UTI/CVA) - Showing favorable response. Has been showing favorable response although talkative and nonsensical at times - obtunded on 08/30 (had been improving up until this point). Repeat COVID (negative) in addition to ABG and ammonia level (both of which were normal)-- suspect a component of hospital acquired delirium at this point - CT of the head done upon arrival showing no acute intracranial process. - MRI showed 6 mm focus of restricted diffusion in the right parietal lobe suggestive of acute versus subacute lacunar infarct as well as chronic right frontal lobe infarct (that pt's family was not aware of) (7) Elevated troponin: Plan: - HS trop 18.0 without acute EKG changes - FU trop downtrending (15.1) and repeat EKG without acute changes - suspect elevated from myocardial demand ischemia rather than unstable plaque (8) Hypomagnesemia: Plan: - Replaced/resolved (9) Right arm pain: Plan: - suspect was a mild/developing cellulitis that now seems to be improving - initially, unable to vocalize pain but nursing report patient yelling out when arm is touched - venous doppler done despite being on Eliquis (as patient with known metastatic Ca): negative for DVT - erythema, edema resolved. 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 Received Cathflo but line still seems nonfunctional - d/w general surgery, line removed on 09/02 (11) History of DVT (deep vein thrombosis): Plan: - On Eliquis chronicallyunable to tolerate oral medication given obtunded state - For now, utilizing Lovenox - Right upper extremity venous Doppler shows no evidence of DVT - Keeping on Lovenox as it will be easier to stop prior to her Mediport removal on Wednesday - Eliquis resumed (12) Hypertension: Plan: - Hold oral antihypertensive agents given hypotension/sepsis syndrome (including amlodipine and metoprolol) - 08/27: BP improved but meds kept on hold - Meds still held on 08/30 due to excessive somnolence - She is awake/alert on on 08/31, HTN meds reordered (13) Melanoma: Plan: - with metastasis - on Keytruda infusions every 3 weeks - No evidence of cerebral metastasis seen on MRI Plan: Patient has been hemodynamically stable and has since defervesced (last fever spike 08/28). Antibiotic coverage de-escalated to Levaquin and Fluconazole (stopping Zosyn and Daptomycin) on 09/01. Mediport removed 09/02. Added PPI on 09/02 (as she has been on steroids last 3 days) for GI prophylaxis (in addition to already rx'd Pepcid). She has had no further fevers since de-escalation of abx. ID consult done today, advised stopping antibiotics as they also agreed that her checkpoint inhibitor immunotherapy could have been the cause of her sepsis picture on admission. I suspect that her ongoing electrolyte imbalances are d/t poor PO intake. Added boost/ensure supplementation, consulted dietary. Transfer red off of telemetry to med/surg. PT/OT consulted but has not been able to work with her due to her confusion and inability to follow directions. Repeat VFSS is to be done today. Case management d/w pt's son, Octaviano, who is now making decisions on behalf of his mother. He has requested that she go to a SNF that is closer to where he lives. Bed available at [facility] and authorization was submitted but not yet received. [facility] will take back but cannot accommodate her admission until 09/04. I have provided a thorough update to patient's son, Octaviano. Did explain that it is not clear whether her mentation will improve once she is out of the hospital. Recommended that they have a f/u with oncology and discuss/weight risks v benefits of resuming Keytruda infusions which at this point, I would forgo. Clinically she is stable for d/c to SNF today but facility cannot take until tomorrow. Plan has been d/w Dr. Layton Ceballos in detail. Admission and Anticipated Discharge Date Admission Date: August 25, 2021 Subjective Patient seen on rounds today. She is resting comfortably in bed, states that she needs to go to the bathroom but she "already went." She denies cp or shortness of breath but her ROS is unreliable given her confusion. Review of Systems Review of Systems: Accurate ROS unobtainable d/t confusion Physical Exam Physical Exam: GENERAL: 76 yo obese elderly WF. NAD. LUNGS: Diminished in bases bilaterally CARDIOVASCULAR: Regular rate and rhythm. ABDOMEN: Soft, non-tender and non-distended. BS normoactive x 4 quad. EXTREMITIES: Trace b/l LE edema. Non-tender. Peripheral pulses +2/4. NEUROLOGIC: A&Ox1 (self), speech more clear. No gross focal neuro deficits. PSYCHIATRIC: Confused but cooperative. Appropriate mood and affect. SKIN: Warm, dry, intact. Groin folds are excoriated and breakdown noted on left buttocks Results & Data Results & Data ([facility]) Vital Signs (Past 12 Hours) Vital Signs Temp Pulse Pulse Resp BP BP Pulse Ox 09/03/21 11:22 36.3 C L 74 71 16 125/75 120/72 95 09/03/21 07:42 36.3 C L 71 16 125/75 95 Laboratory Results 09/03/21 05:53 09/03/21 05:53 PG Care Time/CCT Total # of Minutes Spent Total Time Spent with Patient: Total time spent is greater than 50% in coordination of care (as documented) at patient's floor/unit and/or counseling patient: Coding Level of Care Code 55067 Subseq Hosp Care Lvl 2 Diagnoses Cerebrovascular accident (CVA) I63.9 Fever of unknown origin R50.9 Acute UTI N39.0 Pneumonia J18.9 Hypokalemia E87.6 Encephalopathy G93.40 Elevated troponin R77.8 Hypomagnesemia E83.42 Right arm pain M79.601 Central line complication T82.9XXA History of DVT (deep vein thrombosis) Z86.718 Hypertension I10 Melanoma C43.9
--- NOTE | 2021-09-03 13:36 | Fluoroscopy Report ---
FL video swallow CLINICAL HISTORY: 76 years-old Female with assess for aspiration. Follow-up study in a patient with silent aspiration, hiatal hernia and esophageal dysmotility. TECHNIQUE: Video fluoroscopic evaluation of swallowing was performed in the AP and lateral projection s by the speech pathology staff. The patient is fed nectar-thick and thin liquid, pudding and cracker with paste consistencies. FLUOROSCOPY TIME: 2.2 minutes. COMPARISON STUDY: Chest radiograph 08/28/2021, video swallow study 08/19/2021. FINDINGS: Silent aspiration with thin liquid barium. Prolonged oropharyngeal transit with the pudding and cracker with paste consistencies. No additional aspiration identified. IMPRESSION: 1. Silent aspiration with thin liquid barium. 2. Please see the speech pathologist report for detailed findings and recommendations. ACT 112: Negative or not required by law. Electronically signed by: Regan Whitt M.D. 09/03/2021 1:34 PM
[2021-09-03] MEDS: IRON SUCROSE 300 MG in SODIUM CHLORIDE 0.9% 250 ML IV ONE ×2 (15:04→16:01)
[2021-09-03] MEDS ORDERED: levoFLOXacin/D5W 750 MG/150 ML BAG IV SCH (17:00)
--- NOTE | 2021-09-03 17:15 | Billing Data ---
Date of Service September 03, 2021 Coding Level of Care Code 24733 Initial Inpt Care Lvl 3
--- NOTE | 2021-09-04 02:36 | Consultation Report ---
GASTROENTEROLOGY CONSULTATION DATE OF CONSULTATION: 09/03/2021 SEX: Female. RACE: . ATTENDING PHYSICIAN: Layton Ceballos MD CONSULTING PHYSICIAN: Nestor Lagos DO REASON FOR CONSULTATION: Heme-positive stool. HISTORY OF PRESENT ILLNESS: Kezia Newman is a 76-year-old female who presented to the [facility] on 08/25/2021 with acute kidney injury and UTI and noted encephalopathy. She was also noted during the course of her hospitalization to have pneumonia with hypoxia and was t reated by the hospitalist team as well as did undergo an infectious disease consult and was seen by n ephrology as well. She was set for discharge today, however, Hemoccult was ordered due to declining H and H and she was noted to have heme positive stool. It should be noted that the patient is on asp irin and Eliquis therapy secondary to her history of DVT and I was contacted by Lucy Gonzales from the hospitalist team who asked me to evaluate the patient to determine the need for upper endoscopy. The patient is on Protonix 40 mg daily, and has just been increased to 40 mg twice daily. At the ti me that I saw the patient, she was not having any overt GI bleeding nor was she having excessive florencio l movements. She was receiving an iron infusion with iron sucrose and review of her medical record d oes reveal that her hemoglobin on admission was 11.9 with a drop to today's level of 8.8. She has be en noted to have elevation in her creatinine to as high as 1.48 during this hospitalization and today 's level was 1.07. The patient has a very hard time hearing and it was difficult to communicate with her due to this barrier, as I was wearing a mask and it was difficult for her to understand many of my questions, though I was able to ascertain from the patient that she has never undergone upper endo scopy in the past that she can remember, and has never been diagnosed with peptic ulcer disease. She also does not take any NSAID therapy and she reports no excessive bowel movements or hematemesis, me lexii or hematochezia during this hospitalization. She is unsure as to whether or not she has ever walls d a colonoscopy in the past and she could not tell me the date if she did. She did have an abdomen a nd pelvis CT scan on 08/27/2021 which showed a moderate to large hiatal hernia and liquid stool was s een throughout the colon. She denies any current fevers, chills, nausea, vomiting, abdominal pain or other complaints. A video swallow study from today showed silent aspiration with thin liquid barium and it was recommended that she be on a minced and moist diet with reflux precautions and an outpati ent GI and ENT followup. It was recommended that her head of bed be at 30 degrees at all times and s he is upright with meals, plus 30 minutes in that position. There were no other findings. 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 PAST SURGICAL HISTORY: Includes history of ankle surgery, history of excision of mass in the left lo wer extremity, bladder repair, hysterectomy, bilateral total knee replacement, tubal ligation. ALLERGIES: TRAMADOL AND KEFLEX. MEDICATIONS: At the present time, Tylenol 650 mg p.o. q.4h. p.r.n. DuoNeb 3 mL via nebulizer 4 times a day as needed, Norvasc 5 mg p.o. q.a.m., Lipitor 40 mg p.o. q.a.m., clotrimazole troches swallow 5 times a day, melatonin 3 mg p.o. at bedtime, nystatin 1 application externally as needed, Zofran 4 m g IV q.6h. p.r.n., Protonix 40 mg p.o. b.i.d., prednisone 30 mg p.o. daily. SOCIAL HISTORY: She is . She resides in a retirement. No tobacco, alcohol, or illicit isac g use. FAMILY HISTORY: Positive for breast cancer. Negative for GI malignancy or inflammatory bowel diseas e. REVIEW OF SYSTEMS: Negative x12 system review other than pertinent positives listed in the HPI. PHYSICAL EXAMINATION: VITAL SIGNS: Temperature of 36.3, pulse 84, respirations 20, blood pressure 133/84, pulse ox 96% on 4 liters via nasal cannula. GENERAL: She is awake, cooperative, has a difficult time hearing with a significant communication ba nereida in that regard. HEENT: Normocephalic, atraumatic. Eyes: No scleral icterus. NECK: Soft, supple. CHEST: Decreased breath sounds at bilateral bases. CARDIOVASCULAR SYSTEM: Regular rate and rhythm. No murmurs, rubs or gallops. ABDOMEN: Soft, nontender, nondistended, positive bowel sounds. There is no appreciable hepatospleno megaly. EXTREMITIES: No clubbing, cyanosis or edema. LABORATORY STUDIES AND RADIOGRAPHIC STUDIES: Are reviewed in the HPI. IMPRESSION: A 76-year-old female with multiple medical comorbidities who was admitted with a urinary tract infection, acute kidney injury and was subsequently found to have sepsis syndrome wi th pneumonia, who has had a decline in her H and H and was noted to have heme positive stools while o n aspirin, Eliquis and steroids. PLAN: At the present time, I would recommend that the patient continue Protonix 40 mg p.o. b.i.d. S he has had no overt GI bleeding, though she was Hemoccult positive, which may be related to her Eliqu is, aspirin and steroid therapy. I would recommend keeping her n.p.o. after midnight tonight. If he r H and H does fall further, consideration could be given to performing an upper endoscopy; however, I do not believe she has an acute upper GI bleed that she would need urgent intervention or evaluatio n for today. I will follow her clinical course and make further recommendations. If her H and H is stable or does increase, decision may be made to have her followup for this as an outpatient. Once again, thank you for allowing me to participate in the care of this patient. If you have any fu rther questions, please do not hesitate in contacting me. Job ID: [id number]
[2021-09-04 06:49] LABS: Basophils # (auto) 0.01 K/uL (0-0.2); Basophils % (auto) 0.1 %; Eosinophils # (auto) 0.12 K/uL (0-0.5); Hematocrit (blood only) 25.7 % (37-47); Hemoglobin 8.1 g/dL (12.0-16.0); Immature Granulocytes # (auto) 0.47 K/uL (0.00-0.02); Immature Granulocytes % (auto) 3.9 %; Lymphocytes # (auto) 1.59 K/uL (1.2-3.4); Lymphocytes % (auto) 13.1 %; Mean Corpuscular Hemoglobin 28.6 pg (25-34); Mean Corpuscular Hgb Conc 31.5 g/dL (32-36); Mean Corpuscular Volume 90.8 fL (80-100); Mean Platelet Volume 9.3 fL (7.4-10.4); Monocytes # (auto) 1.23 K/uL (0.11-0.59); Monocytes % (auto) 10.2 %; Neutrophils # (auto) 8.69 K/uL (1.4-6.5); Neutrophils % (auto) 71.7 %; Nucleated RBC # (auto) 0.03 K/uL (0-0); Nucleated RBC % (auto) 0.3 %; Platelet Count 495 K/uL (130-400); RDW Coefficient of Variation 16.6 % (11.5-14.5); RDW Standard Deviation 53.8 fL (36.4-46.3); Red Blood Count 2.83 M/uL (4.2-5.4); White Blood Count 12.11 K/uL (4.8-10.8)
[2021-09-04 07:08] LABS: BUN Creatinine Ratio 26.6 (10-20); Calcium 8.4 mg/dl (8.5-10.1); Creatinine Clr Calc Pharmacy 62.2 ml/min; Est GFR (African American) 67.8 ml/min; Est GFR (Non-African American) 58.5 ml/min; Potassium 3.3 mmol/L (3.5-5.1)
[2021-09-04] MEDS: CLOTRIMAZOLE 10 MG TROCHE BUCCAL SCH ×5 (08:06→22:34)
[2021-09-04] MEDS: METOPROLOL TARTRATE 25 MG TAB PO SCH ×2 (08:07→19:45)
[2021-09-04] MEDS: PANTOprazole 40 MG TAB PO SCH ×2 (08:07→19:47)
[2021-09-04] MEDS: amLODIPine BESYLATE 5 MG TAB PO SCH (08:08)
[2021-09-04] MEDS: predniSONE 10 MG TABLET PO SCH (08:09)
[2021-09-04] MEDS: MENTHOL-ZINC OXIDE 360 APPLN/120 GM TUBE EXT SCH ×2 (08:59→19:36)
--- NOTE | 2021-09-04 09:33 | Gastroenterology Progress Note ---
Date of Service September 04, 2021 Assessment & Plan (1) Heme positive stool: Plan: -Continue Protonix 40 mg BID -Keep NPO for EGD today -Continue to monitor H/H Admission and Anticipated Discharge Date Admission Date: August 25, 2021 Supervising Physician Co-Signing Physician Notes Agree with MARIO Crawford as above Abd: Soft, NT, ND, +BS Proceed with EGD now Continue current therapy and supportive care Subjective Patient is a 76 yo female with anemia & heme positive stool. H/H present 8.1/25.7. No overt GI bleeding or other GI symptoms at present. Review of Systems Gastrointestinal: no abdominal pain, no blood in stools and no melena Physical Exam Constitutional: no acute distress Respiratory: normal respiratory effort Gastrointestinal (Abdomen): Inspection/Auscultation: abdomen normal to inspection Results & Data Results & Data ([place]) Vital Signs (Past 12 Hours) Vital Signs Temp Pulse Resp BP Pulse Ox 09/04/21 06:34 36.4 C L 77 18 131/75 91 09/03/21 23:10 36.3 C L 74 18 129/78 94 PG Care Time/CCT Total # of Minutes Spent Total Time Spent with Patient: Total time spent is greater than 50% in coordination of care (as documented) at patient's floor/unit and/or counseling patient: Coding Level of Care Code 53713 Subseq Hosp Care Lvl 3 Diagnoses Heme positive stool R19.5
[2021-09-04] MEDS: ATORVASTATIN 40 MG TAB PO SCH (13:03)
[2021-09-04] MEDS ORDERED: IRON SUCROSE 300 MG in SODIUM CHLORIDE 0.9% 250 ML IV ONE (14:00)
--- NOTE | 2021-09-04 14:01 | Hospitalist Progress Note ---
Date of Service September 04, 2021 Assessment & Plan (1) Cerebrovascular accident (CVA): Plan: - MRI brain revealing R parietal acute/subacute infarct - Case d/w neurology who felt that a formal consult was not needed - Obtained Echocardiogram: normal lv size w/ hyperdynamic systolic fxn, EF >70%, No RWMA. Moderate concentric LVH. Moderate mitral annular calcification. Normal RVSP. - ASA and Lipitor advised, Lipitor ordered but held as she was empirically on Dapto, has since been resumed since she is now off the Dapto - Speech therapy eval re-ordered d/t coughing spell while drinking water and new dx of stroke; appreciate assistance * Diet ordered on 08/29, required thickened liquids but upgraded today to thin liquids per ST note * repeat VFSS done 09/03: Scant amount of silent aspiration at very first presentation of thin liquid but not diagnostically significant and no further penetration or aspiration during rest of study prior - PT/OT on board (2) Fever of unknown origin: Plan: - presented with SIRS criteria including tachycardia (124), fever (101.4), tachypnea (27), and marginal BP of 99/50 - Sources of infection include: grossly infected urine (cloudy, nitrite and leukocyte esterase+), urine cx pending + radiologic evidence of PNA with hypoxia thus meeting sepsis criteria - Procalcitonin elevated at 2.25 on admission and uptrended 3.58-->then downtrended to 1.65-->0.49-->0.16 - CRP elevated at 27.70-->20.3-->7.18-->3.84 - Treated upfront with aggressive IVF hydration - Held antihypertensives d/t marginal hypotension (which has since improved w/ hydration) - RUQ ultrasound revealed no evidence of acute/chronic cholecystitis as possible source - Blood cultures: one out of the total 8 tubes collected is positive for GPC in clusters (likely staph) -- suspect that this is a contaminant - Recently hospitalized 08/15-08/21 with similar presentation w/o obvious source identified; however, was treated empirically w/ Doxy for possible tick-borne illness - Was initially hospitalized this day with empiric Zosyn but despite greater than 48 hours of this, was febrile, tachycardic and hypotensive. Antibiotic coverage broadened to Zosyn + Levaquin + linezolid * Zosyn covering for HAP/Aspiration PNA (also providing pseudomonal coverage given recent hospitalization with d/c to SNF) * Levaquin added double antipseudomonal coverage * Zyvox covered MRSA and also provided lung coverage. Pharmacy suggested transition of linezolid to daptomycin given negative MRSA nasal swab. Utilizing daptomycin really limits oral options as she failed doxycycline. * Antibiotic regimen discussed with pharmacy. Thought was to de-escalate to Levaquin/linezolid. Pharmacy does not want linezolid given unless recommended by infectious disease. Subsequently, ID consulted, appreciate recommendations. * ID evaluated on 09/02, did feel that it is very likely that Keytruda is playing a role in her septic presentation. Completed 10 day course as of 09/03. - Fungal blood cultures ordered and NGTD -At this time, it was uncertain if her Keytruda was potentially causing an inflammatory response for which IV steroids were initiated - Again, certainly possible (although likelihood is low) that mediport line could be infected. Line was nonfunctional and subsequently removed (09/02) and cultures drawn NGTD - Inflammatory markers continue to downtrend. IV steroids de-escalated to oral Prednisone with continued taper - Now with leukocytosis but suspect this is steroid-induced (3) Acute UTI: Plan: - UA appears grossly infected (cloudy, leukocyte esterase and nitrite positive). 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 - in addition, MBS done during recent stay and there was concern for silent aspiration at that time. Zosyn would provide adequate gram-negative and anaerobic coverage. * Patient n.p.o. upfront given her obtunded state and need for airway protection * Although MBS does show concern for silent aspiration, this was discussed w/ speech therapy (Vandana Sherwood) who adamantly reports patient does not have aspiration concerns * 08/27: patient became more A&O-was initiated full liquid. Advance to pured and minced/moist as tolerated at discretion of ST * Concerns from staff regarding ability to eat and signs of aspiration for which speech therapy was asked to reevaluate the patient (especially given her subacute CVA) * Assessed by ST on 08/29 with recommendations for minced and moist diet, thin liquids * Follow-up videofluoroscopy done 09/03 showing scant silent aspiration with no followed aspiration throughout the rest of the study. 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 MRSA coverage added on 08/27 given persistent sepsis syndrome despite IV antibiotics - Continue supplemental oxygen to maintain a pulse ox of >90 % - continue nebulized treatments prn - Sputum culture ordered (but uncollected as unable to expectorate) - Did discuss CODE STATUS with sisters on 08/25 Patient is a full code - IV Lasix given 08/28 and 08/30 given pulmonary edema likely secondary to aggressive fluid resuscitation from sepsis - IV abx de-escalated to Levaquin on 08/31, completes on 09/03 totalling 10 days of IV abx therapy (ID recommends stopping abx at this time) (5) Hypokalemia: Plan: - Replaced and resolved (6) Encephalopathy: Plan: - Metabolic Encephalopathy (from PNA/UTI/CVA) - Showing favorable response. Has been showing favorable response although talkative and nonsensical at times (uncertain what cognitive decline is a result of her recent CVA- as parietal lobe infarct can cause speech and language issues) - obtunded on 08/30 (had been improving up until this point). Repeat COVID (negative) in addition to ABG and ammonia level (both of which were normal)-- suspect a component of hospital acquired delirium at this point. - CT of the head done upon arrival showing no acute intracranial process. - MRI showed 6 mm focus of restricted diffusion in the right parietal lobe suggestive of acute versus subacute lacunar infarct as well as chronic right frontal lobe infarct (that pt's family was not aware of) (7) Elevated troponin: Plan: - HS trop 18.0 without acute EKG changes - FU trop downtrending (15.1) and repeat EKG without acute changes - suspect elevated from myocardial demand ischemia rather than unstable plaque (8) Anemia: Plan: Patient with progressive anemia throughout this hospital stay Hemoglobin was 12.7 on 08/08 and has been downtrending since that time 7.7 on 08/27. Patient was hypotensive at that time for which an urgent blood transfusion was given (2 units) Anemia work-up not obtained prior to blood transfusion Did have a CT scan of the abdomen and pelvis to ensure no retroperitoneal hemorrhage. This was nonacute for bleeding Patient takes chronic Eliquis (for history of DVT). Was receiving Lovenox. Aspirin subsequently added given the subacute CVA. In addition, she has received IV steroids with conversion to oral Is on PPI therapy that has since been increased to twice daily Positive Hemoccult GI consultedfor EGD today Currently her Eliquis and aspirin are on hold. With resumption of these, would transition Eliquis to 2.5 mg seeing as she has a history of DVT with no active DVT/PE Does have underlying CKD. This could be contributing (9) Hypomagnesemia: Plan: - Replaced/resolved (10) Right arm pain: Plan: - suspect was a mild/developing cellulitis that now seems to be improving - initially, unable to vocalize pain but nursing report patient yelling out when arm is touched - venous doppler done despite being on Eliquis (as patient with known metastatic Ca): negative for DVT - erythema, edema resolved. 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 Received Cathflo but line still seems nonfunctional - d/w general surgery, line removed on 09/02 (12) History of DVT (deep vein thrombosis): Plan: - On Eliquis chronicallyunable to tolerate oral medication given obtunded state - lovenox utilized upfront (but now on hold given anemia) - Right upper extremity venous Doppler shows no evidence of DVT - Keeping on Lovenox as it will be easier to stop prior to her Mediport removal on Wednesday - Eliquis resumed (13) Hypertension: Plan: - Upfront, oral antihypertensive agents given hypotension/sepsis syndrome (including amlodipine and metoprolol) - Oral antihypertensive agents have since been resumed. BP 131/75 (14) Melanoma: Plan: - with metastasis - on Keytruda infusions every 3 weeks - No evidence of cerebral metastasis seen on MRI - Call out to oncology to help determine when her last dose of Keytruda was. Awaiting return call Plan: Patient has been hemodynamically stable and has since defervesced (last fever spike 08/28). Antibiotic coverage de-escalated to Levaquin and Fluconazole (stopping Zosyn and Daptomycin) on 09/01. Mediport removed 09/02. Added PPI on 09/02 (as she has been on steroids last 3 days) for GI prophylaxis (in addition to already rx'd Pepcid). She has had no further fevers since de-escalation of abx. ID consult, advised stopping antibiotics as they also agreed that her checkpoint inhibitor immunotherapy could have been the cause of her sepsis picture on admission. I suspect that her ongoing electrolyte imbalances are d/t poor PO intake. Added boost/ensure supplementation, consulted dietary. Repeat VFSS done. Case management d/w pt's son, Octaviano, who is now making decisions on behalf of his mother. He has requested that she go to a SNF that is closer to where he lives. Bed available at [facility] and authorization was submitted but not yet received. [facility] will take back but cannot accommodate her admission until 09/04. I have provided a thorough update to patient's son, Octaviano. Did explain that it is not clear whether her mentation will improve once she is out of the hospital. Recommended that they have a f/u with oncology and discuss/weight risks v benefits of resuming Keytruda infusions which at this point, I would forgo. Octaviano's contact information [phone] Plan of care to be D/W Dr. Dong. Further orders as warranted. Admission and Anticipated Discharge Date Admission Date: August 25, 2021 Subjective Patient seen on daily rounds today. She is awake and talkative but nonsensical. She has completed a full course of IV antibiotics and seen by infectious disease who felt that her immunological agents could have been contributing to her sepsis appearance and encephalitis. At any rate, she has shown favorable response. She remains on tapering course of prednisone. Plan was for discharge back to the nursing facility yesterday; however, her hemoglobin has been downtrending. She did require blood transfusion on the evening of 08/27. Since, her hemoglobin continues to dwindle. She had a positive Hemoccult for which GI was consulted. Plan is for EGD today. Patient takes Eliquis chronically. Aspirin added given a subacute infarct noted during this hospital stay. Again, has been on prednisone. Empirically, her Protonix has been increased to twice daily. She is an unreliable historian. Review of Systems Review of Systems: Patient is an unreliable historian. She is talkative but nonsensical Physical Exam Physical Exam: General: Resting comfortably in her hospital bed. She is awake. Does not appear ill or toxic NAD. HEENT: Head is AT/NC. Buccal mucosa is moist and pink Neck: No JVD. Negative hepatojugular reflex Cardiac: RRR Lungs: CTA without W/R/R Abdomen: Normoactive X4. Soft and nontender in all quadrants. Extremities: No peripheral clubbing cyanosis or edema Neuro: Patient is oriented to self but not oriented to place, time or situation. Perhaps a subtle left-sided facial droop Skin: No obvious skin lesions or rashes Psych: Appropriate affect. Pleasant and cooperative Results & Data Results & Data ([facility]) Vital Signs (Past 12 Hours) Vital Signs Temp Pulse Resp BP Pulse Ox 09/04/21 06:34 36.4 C L 77 18 131/75 91 Laboratory Results 09/04/21 05:54 09/04/21 05:54 PG Care Time/CCT Total # of Minutes Spent Total Time Spent with Patient: Total time spent is greater than 50% in coordination of care (as documented) at patient's floor/unit and/or counseling patient: Coding Level of Care Code 06314 Subseq Hosp Care Lvl 2 Diagnoses Cerebrovascular accident (CVA) I63.9 Fever of unknown origin R50.9 Acute UTI N39.0 Pneumonia J18.9 Hypokalemia E87.6 Encephalopathy G93.40 Elevated troponin R77.8 Hypomagnesemia E83.42 Right arm pain M79.601 Central line complication T82.9XXA History of DVT (deep vein thrombosis) Z86.718 Hypertension I10 Melanoma C43.9 Anemia D64.9
--- NOTE | 2021-09-04 14:44 | Anesthesiology Consultation ---
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 Consults Requested none ASA ASA4 Proposed Anesthesia Anesthesia Type: MAC Risk / Benefits Reviewed With: PT / POA / Parent / Guardian, Accepts Plan and Informed Consent Obtained History Surgery Operation Date: 09/01/21 11:40 Proposed Procedures p Mediport Removal - Arsh Berrios, Operation Date: 09/02/21 10:10 Proposed Procedures p Mediport Removal - Arsh Berrios, DO Operation Date: 09/04/21 17:15 Proposed Procedures p Esophagogastroduodenoscopy Dr Lagos - Nestor Lagos, DO Height/Weight Height: 5 ft 7 in Weight: 104.1 kg Allergies Allergy/AdvReac Type Severity Reaction Status Date / Time tramadol Allergy Mild NASUEA/CONF Verified 01/15/21 08:49 USION cephalexin [From Keflex] AdvReac Mild upset Verified 01/15/21 08:49 stomach Medications Home Medications Medication Instructions Recorded Confirmed Last Taken amlodipine 5 mg tablet (Norvasc) 5 mg PO QAM 12/05/18 08/15/21 01/15/21 06:30 omeprazole 20 mg tablet,delayed 20 mg PO QAM 12/05/18 08/15/21 01/15/21 06:30 release cholecalciferol (vitamin D3) 25 25 mcg PO QAM 12/11/19 08/15/21 01/14/21 07:00 mcg (1,000 unit) tablet (Vitamin D3) metoprolol tartrate 25 mg tablet 12.5 mg PO BID 03/26/20 08/15/21 01/15/21 06:30 diphenhydramine HCl 25 mg capsule 25 mg PO HS PRN cap 03/28/20 08/15/21 01/14/21 07:00 (Benadryl) multivitamin 1 tab PO QAM 04/25/20 08/15/21 01/14/21 07:00 cetirizine 10 mg tablet (Zyrtec) 10 mg PO QAM 01/14/21 08/15/21 01/14/21 19:00 apixaban 5 mg tablet (Eliquis) 5 mg PO DAILY 08/15/21 08/15/21 Unknown esomeprazole magnesium 20 mg 20 mg PO DAILY 08/15/21 08/15/21 Unknown capsule,delayed release montelukast 10 mg tablet 10 mg PO DAILY 08/15/21 08/15/21 Unknown doxycycline hyclate 100 mg capsule 100 mg PO BID #23 cap 08/21/21 Unknown nystatin 100,000 unit/mL oral 5 ml PO QID #140 ml 08/21/21 Unknown suspension triamcinolone acetonide 0.1 % 1 applic EXT QID PRN #1 g 08/21/21 Unknown topical cream aspirin 81 mg tablet,delayed 81 mg PO QAM #30 tab 09/03/21 Unknown release atorvastatin 40 mg tablet 40 mg PO QAM #30 tab 09/03/21 Unknown prednisone 10 mg tablet 10 mg PO DAILY #18 tab 09/03/21 Unknown Active Medications Generic Name Dose Route Start Last Admin Trade Name Freq PRN Reason Stop Dose Admin Acetaminophen 650 mg 08/28/21 17:44 08/28/21 18:11 Acetaminophen 325 Mg Tab PO 09/27/21 17:43 650 mg Q4H PRN Administration Pain or Fever Amlodipine Besylate 5 mg 08/31/21 14:30 09/04/21 08:08 Amlodipine Besylate 5 Mg Tab PO 09/30/21 14:29 5 mg QAM DAVID Administration Apixaban 5 mg 09/02/21 21:00 09/03/21 07:47 Apixaban 5 Mg Tablet PO 10/02/21 20:59 5 mg BID DAVID Administration Aspirin 81 mg 08/28/21 09:45 09/03/21 07:47 Aspirin 81 Mg Ectab PO 09/27/21 09:44 81 mg QAM DAVID Administration Atorvastatin Calcium 40 mg 08/29/21 09:00 09/04/21 13:03 Atorvastatin 40 Mg Tab PO 09/28/21 08:59 Not Given QAM [facility] Calamine/Phenol 1 appln 08/30/21 10:30 09/04/21 08:59 Menthol-Zinc Oxide 360 Appln/120 Gm Tube EXT 09/29/21 10:29 1 appln BID DAVID Administration Clotrimazole 10 mg 08/27/21 11:00 09/04/21 13:04 Clotrimazole 10 Mg Dipika BUCCAL 09/26/21 10:59 Not Given [id number] [facility] Metoprolol Tartrate 12.5 mg 08/30/21 09:30 09/04/21 08:07 Metoprolol Tartrate 25 Mg Tab PO 09/29/21 09:29 12.5 mg BID DAVID Administration Ondansetron HCl 4 mg 08/25/21 12:00 09/01/21 10:45 Ondansetron Inj 2 Mg/Ml 2 Ml Vial IV 09/24/21 11:59 4 mg Q6H PRN Administration Nausea Pantoprazole Sodium 40 mg 09/03/21 21:00 09/04/21 08:07 Pantoprazole 40 Mg Tab PO 10/03/21 20:59 40 mg BID DAVID Administration NPO Date Last Intake of Fluids: 09/02/21 Time Last Intake of Fluids: 06:00 Last Intake of Fluids Comment: Sips w/ PO meds Date Last Intake of Solids: 09/01/21 Time Last Intake of Solids: 18:00 Past Medical History Medical History Cerebral infarct "Presumed old right frontal lobe cerebral infarct" - per Dec 2019 PET scan -- pt unaware/denies 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 No chemo or XRT GERD (gastroesophageal reflux disease) Hearing deficit Hiatal hernia Hx of pulmonary embolus 2018 s/p foot surgery, was on Eliquis for a few months. 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 Tinsley Exercise / Class Metabolic Activity IV < 2 Limit ADL/Bedbound Past Family History Family History Mother Hearing loss Cancer Sister Hearing loss Cancer Other Breast cancer Family history non-contributory No family history of adverse response to anesthesia No family history of bleeding disorder Past Surgical History Surgical History H/O excision of mass History of ankle surgery RECONSTRUCTION OF LEFT ANKLE History of biopsy History of cataract surgery History of colonoscopy History of esophagogastroduodenoscopy (EGD) History of laryngoscopy Hx of bladder repair surgery Hx of foot surgery reconstructive right foot surgery (2019) Hx of hysterectomy Hx of total knee replacement RIGHT AND LEFT Hx of tubal ligation PONV (postoperative nausea and vomiting) Social History Smoking Status: Never smoker tobacco type: cigarettes Do You Dip or Chew Tobacco: No Hx Alcohol Use: No Alcohol type: beer alcohol intake frequency: holidays/special occasions only Hx Substance Use: No substance use type: does not use Physical Exam Vital Signs Last Vital Signs Temp 36.4 C L 09/04/21 06:34 Pulse 77 09/04/21 06:34 Resp 18 09/04/21 06:34 BP 131/75 09/04/21 06:34 Pulse Ox 91 09/04/21 06:34 Testing Laboratory Results 09/04/21 05:54 09/04/21 05:54 PT 15.0 Seconds (9.0-12.0) H 08/26/21 06:29 INR 1.4 (0.9-1.1) H 08/26/21 06:29 Hemoglobin A1c 5.8 % (4.5-5.6) H 08/28/21 07:03 Urine Color [place] 08/28/21 13:40 Urine Appearance Turbid (Clear) A 08/28/21 13:40 Urine pH 5.0 (4.5-7.5) 08/28/21 13:40 Ur Specific [place] 1.035 (1.000-1.030) H 08/28/21 13:40 Urine Protein 2+ (Negative) H 08/28/21 13:40 Urine Glucose (UA) Negative (Negative) 08/28/21 13:40 Urine Ketones Trace (Negative) H 08/28/21 13:40 Urine Nitrite Positive (Negative) A 08/28/21 13:40 Ur Leukocyte Esterase 1+ (Negative) H 08/28/21 13:40 Urine WBC (Auto) >30 /hpf (0-5) H 08/28/21 13:40 Urine RBC (Auto) 10-30 /hpf (0-4) H 08/28/21 13:40 U Hyaline Cast (Auto) 1-5 /lpf (0-5) 08/28/21 13:40 U Epithel Cells (Auto) >30 /lpf (0-5) H 08/28/21 13:40 Urine Bacteria (Auto) Negative (Negative) 08/28/21 13:40 Blood Type A Positive 08/27/21 18:22 Antibody Screen NEGATIVE 08/27/21 18:22 08/27/21 16:56 Aerobic Blood Culture - Final Blood Coag neg staph not lugdunensis Anaerobic Blood Culture - Final No growth in Anaerobic bottle after 5 days. 09/02/21 10:52 Gram Stain - Final A-Port Aerobic and Anaerobic Culture - Preliminary No growth to date. 08/28/21 18:05 Aerobic Blood Culture - Final Blood No growth in Aerobic bottle after 5 days. Anaerobic Blood Culture - Final No growth in Anaerobic bottle after 5 days. 08/28/21 18:06 Aerobic Blood Culture - Final Blood No growth in Aerobic bottle after 5 days. Anaerobic Blood Culture - Final No growth in Anaerobic bottle after 5 days. 08/27/21 16:39 Aerobic Blood Culture - Final Blood No growth in Aerobic bottle after 5 days. Anaerobic Blood Culture - Final 08/30/21 12:49 Fungal Smear - Final Blood Fungal Culture - Preliminary No yeast or fungus isolated - Report 1, Additional Report to Follow. 08/27/21 17:52 Urine Culture - Preliminary Urine,Indwelling Cath Cherry albicans/dubliniensis Yeast not Cherry albicans/dub 08/25/21 12:48 Aerobic Blood Culture - Final Blood No growth in Aerobic bottle after 5 days. Anaerobic Blood Culture - Final No growth in Anaerobic bottle after 5 days. 08/25/21 12:30 Aerobic Blood Culture - Final Blood No growth in Aerobic bottle after 5 days. Anaerobic Blood Culture - Final No growth in Anaerobic bottle after 5 days. 08/25/21 07:34 Aerobic Blood Culture - Final Blood No growth in Aerobic bottle after 5 days. Anaerobic Blood Culture - Final 08/25/21 07:19 Aerobic Blood Culture - Final Blood No growth in Aerobic bottle after 5 days. Anaerobic Blood Culture - Final No growth in Anaerobic bottle after 5 days. 08/25/21 07:10 Urine Culture - Final Urine,Straight Cath No growth - less than 1,000 colonies/mL. Electrocardiogram Date: 09/01/21 Poor data quality, interpretation may be adversely affected Sinus tachycardia @ 118 Left axis deviation Nonspecific ST abnormality Abnormal ECG When compared with ECG of 26-AUG-2021 06:45, Premature atrial complexes are no longer Present Confirmed by Isaiah Flood ([id number] on 09/02/2021 10:03:06 AM Chest X-Ray Date: 08/28/21 CLINICAL HISTORY: f/u pna TECHNIQUE: Single frontal radiograph of the chest was obtained. Comparison: Comparison is made to chest radiograph 08/25/2021 FINDINGS: A port catheter is seen. The cardiomediastinal silhouette is normal. Prominence and cephalization of the vasculature is seen. Lungs are underinflated. A left retrocardiac opacity is seen. There is likely a faint right lower lung opacity as well. No evidence of pleural effusion or pneumothorax. IMPRESSION: Bilateral lower lung airspace opacities may represent atelectasis, pneumonia, and/or aspiration. Mild pulmonary edema. Echocardiogram Date: 08/28/21 EF: >70% LV Function: Hyperdynam RWMA: + none
[2021-09-04] MEDS ORDERED: LIDOCAINE 2% 2 ML VIAL/AMP(20MG/ML) INFIL ONE (16:07)
[2021-09-04] MEDS ORDERED: PROPOFOL IV EMULSION 10 MG/ML 20 ML VIAL IV ONE (16:07)
--- NOTE | 2021-09-04 16:45 | GI REPORT ---
Patient Name: Kezia Newman Procedure Date: 09/04/2021 4:09 PM Date of : 1945 Admit Type: Inpatient Age: 76 Gender: Female Attending MD: Nestor Lagos DO Procedure: Upper GI endoscopy Providers: Nestor Lagos DO Referring MD: Jason Dong Indications: Iron deficiency anemia Medicines: Monitored Anesthesia Care Complications: No immediate complications. Estimated Blood Loss: Estimated blood loss: none. Procedure: Pre-Anesthesia Assessment: - Prior to the procedure, a History and Physical was performed, and patient medications and allergies were reviewed. The patient's tolerance of previous anesthesia was also reviewed. The risks and benefits of the procedure and the sedation options and risks were discussed with the patient. All questions were answered, and informed consent was obtained. Prior Anticoagulants: The patient has taken Eliquis (apixaban), last dose was 1 day prior to procedure. ASA Grade Assessment: IV - A patient with severe systemic disease that is a constant threat to life. After reviewing the risks and benefits, the patient was deemed in satisfactory condition to undergo the procedure. After obtaining informed consent, the endoscope was passed under direct vision. Throughout the procedure, the patient's blood pressure, pulse, and oxygen saturations were monitored continuously. The Endoscope was introduced through the mouth, and advanced to the second part of duodenum. The upper GI endoscopy was accomplished without difficulty. The patient tolerated the procedure well. Findings: The examined esophagus was normal. A large hiatal hernia was present. The examined duodenum was normal. Impression: - Normal esophagus. - Large hiatal hernia. - Normal examined duodenum. - No specimens collected. Recommendation: - Return patient to [facility] for ongoing care. - Advance diet as tolerated. - Continue present medications. Nestor Lagos DO 09/04/2021 4:45:06 PM This report has been signed electronically. Note Initiated On: 09/04/2021 4:09 PM Number of Addenda: 0 I attest to the content of the Intraoperative Record and orders documented therein, exceptions below {[id number]}
--- NOTE | 2021-09-04 16:56 | Anesthesiology Progress Note ---
Date of Service September 04, 2021 Anesthesia Post Procedure Vital Signs Vital Signs: Temp Pulse Resp BP BP Pulse Ox 09/04/21 16:51 80 14 126/72 93 09/04/21 15:07 36.5 C 79 18 142/75 H 97 09/04/21 06:34 36.4 C L 77 18 131/75 91 09/03/21 23:10 36.3 C L 74 18 129/78 94 Pain Intensity Generalized: Pain Intensity: 8 Transfer of Care Handoff Completed per policy Notes Mental Status: alert / awake / arousable Patient Amnestic to Procedure: Yes Nausea / Vomiting: adequately controlled Pain: adequately controlled Airway Patency, RR, SpO2: stable & adequate BP & HR: stable & adequate Hydration State: stable & adequate Anesthetic Complications: no major complications apparent
[2021-09-04] MEDS ORDERED: HYDROCORTISONE 10 MG TAB PO SCH (21:00)
[2021-09-05] MEDS: CLOTRIMAZOLE 10 MG TROCHE BUCCAL SCH ×3 (06:01→15:13)
[2021-09-05 07:21] LABS: Hematocrit (blood only) 28.4 % (37-47); Hemoglobin 9.1 g/dL (12.0-16.0); Mean Corpuscular Hemoglobin 29.1 pg (25-34); Mean Corpuscular Volume 90.7 fL (80-100); Nucleated RBC # (auto) 0.03 K/uL (0-0); Nucleated RBC % (auto) 0.2 %; Platelet Count 599 K/uL (130-400); RDW Coefficient of Variation 17.2 % (11.5-14.5); RDW Standard Deviation 53.6 fL (36.4-46.3); Red Blood Count 3.13 M/uL (4.2-5.4); White Blood Count 13.95 K/uL (4.8-10.8)
[2021-09-05 07:38] LABS: BUN Creatinine Ratio 22.6 (10-20); Calcium 8.7 mg/dl (8.5-10.1); Creatinine Clr Calc Pharmacy 62.9 ml/min; Est GFR (African American) 68.7 ml/min; Est GFR (Non-African American) 59.3 ml/min; Magnesium 1.9 mg/dl (1.7-2.4); Potassium 3.3 mmol/L (3.5-5.1)
[2021-09-05] MEDS: ATORVASTATIN 40 MG TAB PO SCH (07:42)
[2021-09-05] MEDS: PANTOprazole 40 MG TAB PO SCH (07:42)
[2021-09-05] MEDS: amLODIPine BESYLATE 5 MG TAB PO SCH (07:43)
[2021-09-05] MEDS: MENTHOL-ZINC OXIDE 360 APPLN/120 GM TUBE EXT SCH (07:44)
[2021-09-05] MEDS ORDERED: POTASSIUM CHLORIDE CRTAB 20 MEQ TABCR PO STA (07:46)
[2021-09-05] MEDS ORDERED: predniSONE 20 MG TAB PO SCH (09:00)
[2021-09-05] MEDS ORDERED: HYDROCORTISONE 10 MG TAB PO SCH (09:00)
[2021-09-05] MEDS ORDERED: FERROUS SULFATE 325 MG TAB PO SCH (09:00)
[2021-09-05] MEDS ORDERED: FERROUS SULFATE 325 MG/7.4 ML UDP PO SCH (09:00)
[2021-09-05] MEDS: METOPROLOL TARTRATE 25 MG TAB PO SCH (10:06)
--- NOTE | 2021-09-05 12:09 | Discharge Summary ---
Date of Service September 05, 2021 Principal Diagnosis 1. Sepsis with shock 2. Pneumonia 3. SHAMEKA (suspect ATN from sepsis and hypotension) 3. Subacute Stroke 4. ? Immunotherapy induced hypophysitis 5. Anemia 6. Leukocytosislikely steroid-induced at this time Discharge Exam General: Resting comfortably in her hospital bed. She is awake. Does not appear ill or toxic NAD. HEENT: Head is AT/NC. Buccal mucosa is moist and pink Neck: No JVD. Negative hepatojugular reflex Cardiac: RRR Lungs: CTA without W/R/R Abdomen: Normoactive X4. Soft and nontender in all quadrants. Extremities: No peripheral clubbing cyanosis or edema Neuro: Patient is oriented to self but not oriented to place, time or situation. Perhaps a subtle left-sided facial droop Skin: No obvious skin lesions or rashes Psych: Appropriate affect. Pleasant and cooperative Discharge Data Allergies Allergy/AdvReac Type Severity Reaction Status Date / Time tramadol Allergy Mild NASUEA/CONF Verified 01/15/21 08:49 USION cephalexin [From Keflex] AdvReac Mild upset Verified 01/15/21 08:49 stomach Consultations 08/25/21 09:58 ED Decision to Admit Stat 08/27/21 13:56 Consult General Surgery Routine --for mediport exchange 08/27/21 17:59 Consult Nephrology Routine --for SHAMEKA/presumed ATN from sepsis/hypotension 08/30/21 12:04 Consult Infectious Diseases Routine --for persistent FUO 09/03/21 15:13 Consult Gastroenterology Routine --for anemia Procedures Performed Operation Date: 09/01/21 11:40 <No data on this case meets the specified criteria> Operation Date: 09/02/21 10:10 Actual Procedures p Mediport Removal(Right) - Arsh Berrios DO Operation Date: 09/04/21 17:15 Actual Procedures p Esophagogastroduodenoscopy(Not Applicable) - Nestor Lagos DO Ordered Studies 08/25/21 07:07 CT abd pelvis wo con Stat IMPRESSION: 1. Small bilateral pleural effusions with consolidation at both lung bases. While the findings may represent atelectasis, underlying pneumonia cannot be excluded. 2. There is again evidence for diverticulosis without evidence for diverticulitis. 3. No other evidence for acute intra-abdominal or pelvic abnormality on these limited noncontrast images. 4. Additional nonacute findings are delineated above. CT chest diagnostic wo con Stat IMPRESSION: 1. Small pleural effusions with dependent consolidation. This has increased from 08/17/2021 and could represent atelectasis and/or an infectious/inflammatory pneumonitis. Clinical correlation will be required and radiographic follow-up is recommended. 2. Cardiomegaly. 3. Large hiatal hernia. 4. Mildly enlarged mediastinal lymph nodes are nonspecific. 5. Additional findings as above. CT head/brain wo con Stat IMPRESSION: No acute intracranial abnormality. 08/25/21 11:47 US venous doppler UE RT Stat IMPRESSION: There is no sonographic evidence of deep venous thrombosis identified in the right upper extremity. 08/27/21 16:26 MR brain wo con Urgent IMPRESSION: 1. Motion degraded exam. 2. 6 mm focus of restricted diffusion within the right parietal lobe is suggestive of an acute versus subacute lacunar infarct. 3. Chronic right frontal lobe infarct 4. Involutional changes with chronic microvascular ischemic disease. US liver Urgent IMPRESSION: 1. No cholelithiasis or sonographic evidence of acute cholecystitis. 2. No biliary ductal dilation. 08/27/21 18:20 CT abd pelvis wo con Stat IMPRESSION: 1. Suboptimal examination without oral and IV contrast. The Examination is also degraded by streak and motion. 2. Small to moderate pleural effusions with dependent consolidation. This is similar to previous. 3. Moderate to large hiatal hernia. 4. There is body wall edema with asymmetric soft tissue edema in the right upper thigh as compared to the left. Clinical correlation will be required. 5. There is asymmetric left-sided perinephric stranding. Correlate with clinical findings and urinalysis. 6. Suspect cholelithiasis. 7. Liquid stool is seen throughout the colon. Correlate clinically for evidence of a diarrheal illness. 8. Additional findings as above. 08/28/21 07:00 US effusion-chest/mediastinum Routine IMPRESSION: Small bilateral pleural effusions as above. 08/28/21 09:32 US carotid doppler BI Routine IMPRESSION: No hemodynamically significant stenosis seen within the carotid arteries. 09/03/21 11:00 FL video swallow Routine There were scant amount of silent aspiration of the very first presentation of thin liquid. This is not diagnostically significant. No further penetration or aspiration during the entire study. No change compared to VFSS completed on 08/19/2021 Hospital Course (1) Cerebrovascular accident (CVA): - MRI brain revealing R parietal acute/subacute infarct - Case d/w neurology who felt that a formal consult was not needed - Obtained Echocardiogram: normal lv size w/ hyperdynamic systolic fxn, EF >70%, No RWMA. Moderate concentric LVH. Moderate mitral annular calcification. Normal RVSP. - ASA and Lipitor advised, Lipitor ordered but held as she was empirically on Dapto, has since been resumed since she is now off the Dapto - Speech therapy eval re-ordered d/t coughing spell while drinking water and new dx of stroke; appreciate assistance * Diet ordered on 08/29, required thickened liquids but upgraded today to thin liquids per ST note * repeat VFSS done 09/03: Scant amount of silent aspiration at very first presentation of thin liquid but not diagnostically significant and no further penetration or aspiration during rest of study prior -Would advise continued PT/OT and speech therapy (2) Fever of unknown origin: - presented with SIRS criteria including tachycardia (124), fever (101.4), tachypnea (27), and marginal BP of 99/50 - Sources of infection include: grossly infected urine (cloudy, nitrite and leukocyte esterase+), urine cx pending + radiologic evidence of PNA with hypoxia thus meeting sepsis criteria - Procalcitonin elevated at 2.25 on admission and uptrended 3.58-->then downtrended to 1.65-->0.49-->0.16 - CRP elevated at 27.70-->20.3-->7.18-->3.84 - Treated upfront with aggressive IVF hydration - Held antihypertensives d/t marginal hypotension (which has since improved w/ hydration) - RUQ ultrasound revealed no evidence of acute/chronic cholecystitis as possible source - Blood cultures: one out of the total 8 tubes collected is positive for GPC in clusters (likely staph) -- suspect that this is a contaminant - Recently hospitalized 08/15-08/21 with similar presentation w/o obvious source identified; however, was treated empirically w/ Doxy for possible tick-borne illness - Was initially hospitalized this day with empiric Zosyn but despite greater than 48 hours of this, was febrile, tachycardic and hypotensive. Antibiotic coverage broadened to Zosyn + Levaquin + linezolid * Zosyn covering for HAP/Aspiration PNA (also providing pseudomonal coverage given recent hospitalization with d/c to SNF) * Levaquin added double antipseudomonal coverage * Zyvox covered MRSA and also provided lung coverage. Pharmacy suggested transition of linezolid to daptomycin given negative MRSA nasal swab. Utilizing daptomycin really limits oral options as she failed doxycycline. * Antibiotic regimen discussed with pharmacy. Thought was to de-escalate to Levaquin/linezolid. Pharmacy does not want linezolid given unless recommended by infectious disease. Subsequently, ID consulted, appreciate recommendations. * ID evaluated on 09/02, did feel that it is very likely that Keytruda is playing a role in her septic presentation. Completed 10 day course as of 09/03. - Fungal blood cultures ordered and NGTD -At this time, it was uncertain if her Keytruda was potentially causing an inflammatory response for which IV steroids were initiated. 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 Has since been converted to oral prednisone but oncology recommending continued hydrocortisone 20 mg in the a.m., 10 mg in the p.m. --Follow-up with oncology as an outpatient - Again, certainly possible (although likelihood is low) that mediport line could be infected. Line was nonfunctional and subsequently removed (09/02) and cultures drawn NGTD - Inflammatory markers continue to downtrend. - Now with leukocytosis but suspect this is steroid-induced (3) Acute UTI: - UA appeared grossly infected (cloudy, leukocyte esterase and nitrite positive). Possibly skewed given oral Doxycycline on board TEST SPECIALIST - CT of the abdomen and pelvis without pyelonephrosis/hydronephrosis/obstructive uropathy - Urine cx with growth of 2 different types of yeast, 1st identified is marsha albicans, second is yeast not marsha albicans * Empirically started on fluconazole 200mg daily, ID recommends 5 days which completed on 09/03 - fungal BC ordered-NGTD (4) Pneumonia: - CT showing small pleural effusions bilaterally with bibasilar infiltrates (new in comparison to CT done on 08/17/2021) - IV Zosyn (which would provide adequate antipseudomonal coverage given recent hospital stay). - in addition, MBS done during recent stay and there was concern for silent aspiration at that time. Zosyn would provide adequate gram-negative and anaerobic coverage. * Patient n.p.o. upfront given her obtunded state and need for airway protection * Although MBS does show concern for silent aspiration, this was discussed w/ speech therapy (Vandana Sherwood) who adamantly reports patient does not have aspiration concerns * 08/27: patient became more A&O-was initiated full liquid. Advance to pured and minced/moist as tolerated at discretion of ST * Concerns from staff regarding ability to eat and signs of aspiration for which speech therapy was asked to reevaluate the patient (especially given her subacute CVA) * Assessed by ST on 08/29 with recommendations for minced and moist diet, thin liquids * Follow-up videofluoroscopy done 09/03 showing scant silent aspiration with no followed aspiration throughout the rest of the study. Recommendations are for minced and moist diet with good oral hygiene, reflux precautions and continued ST - MRSA nasal swab negative on 08/15 and again 08/25 which is why she was not initially started on MRSA coverage (as also on doxycycline TEST SPECIALIST). MRSA coverage added on 08/27 given persistent sepsis syndrome despite IV antibiotics - Continue supplemental oxygen to maintain a pulse ox of >90 % - continue nebulized treatments prn - Sputum culture ordered (but uncollected as unable to expectorate) - Did discuss CODE STATUS with sisters on 08/25 Patient is a full code - IV Lasix given 08/28 and 08/30 given pulmonary edema likely secondary to aggressive fluid resuscitation from sepsis - IV abx de-escalated to Levaquin on 08/31, completes on 09/03 totalling 10 days of IV abx therapy (ID recommends stopping abx at this time) (5) Hypokalemia: - Replaced and resolved (6) Encephalopathy: - Metabolic Encephalopathy (from PNA/UTI/CVA) - Showing favorable response. Has been showing favorable response although talkative and nonsensical at times (uncertain what cognitive decline is a result of her recent CVA- as parietal lobe infarct can cause speech and language issues) - obtunded on 08/30 (had been improving up until this point). Repeat COVID (negative) in addition to ABG and ammonia level (both of which were normal)-- suspect a component of hospital acquired delirium at this point. - CT of the head done upon arrival showing no acute intracranial process. - MRI showed 6 mm focus of restricted diffusion in the right parietal lobe suggestive of acute versus subacute lacunar infarct as well as chronic right frontal lobe infarct (that pt's family was not aware of) (7) Elevated troponin: - HS trop 18.0 without acute EKG changes - FU trop downtrending (15.1) and repeat EKG without acute changes - suspect elevated from myocardial demand ischemia rather than unstable plaque (8) Anemia: Patient with progressive anemia throughout this hospital stay Hemoglobin was 12.7 on 08/08 and has been downtrending since that time 7.7 on 08/27. Patient was hypotensive at that time for which an urgent blood transfusion was given (2 units) Anemia work-up not obtained prior to blood transfusion Did have a CT scan of the abdomen and pelvis to ensure no retroperitoneal hemorrhage. This was nonacute for bleeding Patient takes chronic Eliquis (for history of DVT). Was receiving Lovenox. Aspirin subsequently added given the subacute CVA. In addition, she has received IV steroids with conversion to oral Is on PPI therapy that has since been increased to twice daily Positive Hemoccult GI consulteds/p EGD (and normal) --Patient on chronic chemotherapy which could cause chemotherapy --The acute drop could have been dilutional and secondary to her sepsis presentation --Hemoglobin currently stable Continue Eliquis but dose decreased to 2.5 mg as no active clot but needs for continued prevention. Continue aspirin (added given acute and subacute CVA) Continue PPI twice daily for GI prophylaxis Does have underlying CKD. This could be contributing Recommend follow-up CBC next week to trendat discretion of house physician (9) Hypomagnesemia: - Replaced/resolved (10) Right arm pain: - suspect was a mild/developing cellulitis that now seems to be improving - initially, unable to vocalize pain but nursing report patient yelling out when arm is touched - venous doppler done despite being on Eliquis (as patient with known metastatic Ca): negative for DVT - erythema, edema resolved. 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 Received Cathflo but line still seems nonfunctional - d/w general surgery, line removed on 09/02 (12) History of DVT (deep vein thrombosis): - On Eliquis chronically but Lovenox utilized upfront given obtunded state and inability to tolerate oral intake - Right upper extremity venous Doppler shows no evidence of DVT - Eliquis resumed but at reduced dose (2.5 mg) as no longer needs treatment dose (13) Hypertension: - Upfront, oral antihypertensive agents given hypotension/sepsis syndrome (including amlodipine and metoprolol) - Oral antihypertensive agents have since been resumed. BP 131/75 (14) Melanoma: - with metastasis - on Keytruda infusions every 3 weeks (last infusion 07/28) - No evidence of cerebral metastasis seen on MRI - Patient should follow-up with oncology to determine plan moving forward Plan of care discussed with and patient seen and agreed upon by Dr. Dong [facility] Attestation I certify that this patient is under my care and that I, or a physicians retail event assistant working with me, had a face to-face encounter that meets the [id number] encounter requirements with this patient. The encounter with the patient was in whole, or in part, for the following medical condition, which is the primary reason for home health care (list medical condition): I certify that, based on my findings, the following services are medically ne cessary home health services: My clinical findings support the need for the above services because: Further, I certify that my clinical findings support that this patient is homebound (i.e. absences from home require considerable and taxing effort and are for medical reasons or zoroastrianism services or infrequently or of short duration when for other reasons) because: Certification for Home Health Services: Based on the above findings, I certify that this patient is confined to the home and needs intermittent longterm care, physical therapy and/or speech therapy or continues to need occupational therapy. The patient is under my care, and I have initiated the establishment of the plan of care. This patient will be followed by a physician who will periodically review the plan of care. Total Time Total Time Spent Total Time Spent (In Minutes): 45 minutes including time spent with patient, coordination of care, preparation of documentation Discharge Plan Discharge Items Patient Disposition: Transfer Alf Fac Reason For Visit: ENCEPHALOPATHY,PNA Discharge Diagnosis: 1. Sepsis with shock 2. Pneumonia 3. SHAMEKA (suspect ATN from sepsis and hypotension) 3. Subacute Stroke 4. ? Immunotherapy induced hypophysitis 5. Anemia Activity: As commented below Activity Comment: with assistance as tolerated Non-emergency contact: Primary Care Provider Call non-emergency contact if: you have any medication questions, your symptoms worsen and your temperature is above 101 Follow-up/Referrals: [place] [Primary Care Provider] - Dietitian Info: Minced and moist. Diet: Carb Consistent or DM2 Diet Texture: Dental soft (bite-sized) Diet Comment: minced and moist Addtl Attending Provider Instructions: Kezia was hospitalized due to concern for a severe infection which was felt to be due to pneumonia. She was treated aggressively with a variety of antibiotics throughout the hospitalization. At this time, she has completed a full course of antibiotics and therefore, will not need any more upon discharge. It is still not entirely clear if she truly had an infection or if she was experiencing an "infection-like" picture due to the immunotherapy that she is on (Keytruda) for her metastatic melanoma. In discussion with her established Oncologist, they feel that this is likely and something called "Immunotherapy Induced Hypophysitis" for which she will be continued on Hydrocortisone (recommended at 20mg in the am/10mg in the pm) She did have an MRI of her brain that revealed evidence of a small stroke in the parietal lobe of the brain, but also noted evidence of a larger old stroke in the frontal lobe. It is uncertain when this stroke may have occurred. Because of these findings, it was recommended that she start taking Aspirin 81mg, one tablet daily as well as Lipitor 40mg, one tablet at bedtime. There was also concern regarding the port for IV access that was in place on the right side of her chest that the line that entered her bloodstream could be infected. Subsequently, this line was removed on 09/02 and cultured to ensure there was no bacterial growth. There has been NO GROWTH of any bacteria noted. Patient's hemoglobin has been low throughout this hospitalization. I suspect it was more in part from a dilutional drop and multiple lab draws rather than active hemorrhage; however, she did have an EGD performed on 09/04 given her anticoagulation therapy in conjunction with aspirin along with the steroids on board. The EGD was normal. She did have a positive fecal occult blood but does have some hemorrhoids that could be contributing. At this time, would continue pantoprazole 40 mg twice daily for GI protection. Would advise a follow-up CBC on Wednesday. If hemoglobin drops, would need to discontinue her anticoagulation therapy/antiplatelet agents. This is at the discretion of the house physician. TAKE ALL MEDICATIONS OUTLINED below RECOMMEND FOLLOW UP CBC BE DRAWN WEDNESDAY OR WEDNESDAY TO TREND HEMOGLOBIN PT/OT sessions were attempted multiple times throughout the hospitalization. Unfortunately, patient has been unable to participate due to her confusion and inability to follow directions. It is advised that further attempts at therapy are made as her mentation may improve as she is out of the hospital. Some of her confusion is thought to be possibly related to hospital delirium. Patient is currently on immunotherapy for her metastatic melanoma, as previously mentioned. These medications can cause immune activated responses that look like infection and can even cause encephalitis. It has been discussed with patient's son, Octaviano, that she follow up with her oncologist and determine the benefits versus risks of resuming this medication. Should maintain minced and moist diet. Moisten patient mouth prior to starting oral intake. Continue reflux precautions such as alternating liquids with solids, and elevation of the head of the bed. In addition, should maintain good oral hygiene before morning oral intake and before bed. Consider continued speech therapy services upon discharge. It is recommended that she continue to have either Boost or Ensure dietary supplements with each meal. It is recommended that she follow up with the medical team at [facility] upon her return. If there are any questions or concerns regarding this patient, please feel free to contact the nonemergency number listed on the discharge paperwork. Pending Studies at Discharge: No Stand-Alone Forms: My [facility] Skilled Items Patient informed of condition?: Yes DNR: No Discharge Level of Care: Skilled Communicable Disease: No Discharge Prognosis: Improving Lines: None Urinary Catheter: No Medications and DC Order Prescriptions: New atorvastatin 40 mg Tablet 40 mg PO QAM Qty: 30 RF: 0 aspirin 81 mg Tablet,Delayed Release (Dr/Ec) 81 mg PO QAM Qty: 30 RF: 0 prednisone 10 mg tablet 10 mg PO DAILY Qty: 18 RF: 0 ferrous sulfate 325 mg (65 mg iron) Tablet,Delayed Release (Dr/Ec) 325 mg PO QAM Qty: 30 RF: 0 pantoprazole 40 mg Tablet,Delayed Release (Dr/Ec) 40 mg PO BID Qty: 60 RF: 0 hydrocortisone [Cortef] 10 mg Tablet 20 mg PO QAM Qty: 60 RF: 0 hydrocortisone [Cortef] 10 mg Tablet 10 mg PO HS Qty: 30 RF: 0 Eliquis 2.5 mg tablet 2.5 mg PO BID Qty: 60 RF: 0 Continued diphenhydramine HCl [Benadryl] 25 mg capsule 25 mg PO HS PRN (Reason: Sleep) RF: 0 metoprolol tartrate 25 mg tablet 12.5 mg PO BID RF: 0 amlodipine [Norvasc] 5 mg Tablet 5 mg PO QAM RF: 0 multivitamin Tablet 1 tab PO QAM RF: 0 cholecalciferol (vitamin D3) [Vitamin D3] 25 mcg (1,000 unit) Tablet 25 mcg PO QAM RF: 0 cetirizine [Zyrtec] 10 mg Tablet 10 mg PO QAM RF: 0 montelukast 10 mg tablet 10 mg PO DAILY RF: 0 nystatin 100,000 unit/mL Suspension 5 ml PO QID Qty: 140 RF: 0 triamcinolone acetonide 0.1 % Cream 1 applic EXT QID PRN (Reason: intertrigo left flank) Qty: 1 RF: 0 Discontinued omeprazole 20 mg Tablet,Delayed Release (Dr/Ec) 20 mg PO QAM RF: 0 esomeprazole magnesium 20 mg capsule,delayed release(DR/EC) 20 mg PO DAILY RF: 0 Eliquis 5 mg tablet 5 mg PO DAILY RF: 0 doxycycline hyclate 100 mg capsule 100 mg PO BID Qty: 23 RF: 0 Discharge Orders: Discharge Order (Routine); Ordered 09/05/21 Ordered By: Shanell Jefferson Admission Data Admit Date/Time: 08/25/21 10:37 Attending Provider: Jason Dong Admit Provider: Tres Monge Primary Care Provider: [place] [place] Other Providers: [place] [place] ; Shanell Jefferson ; Paolo Ceballos ; Paolo Glaser ; Ran Landa ; Vandana Fitch ; Destin Fernandez I. ; Darvin Sellers II ; Rubi Reilly ; Lawson Caballero ; Noah Zhou ; Nestor Lagos Other Interventions: Discharge Summary Assessment (RN) Last Done: 09/04/21 17:13 Coding Level of Care Code D/C DAY MANAGEMENT >30 MINS Diagnoses Cerebrovascular accident (CVA) I63.9 Fever of unknown origin R50.9 Acute UTI N39.0 Pneumonia J18.9 Hypokalemia E87.6 Encephalopathy G93.40 Elevated troponin R77.8 Anemia D64.9 Hypomagnesemia E83.42 Right arm pain M79.601 Central line complication T82.9XXA History of DVT (deep vein thrombosis) Z86.718 Hypertension I10 Melanoma C43.9
== END 2021-09-05 15:38 | DRG 871 ==
LOC: ED 06:53 → SUATTDRO 10:37 → 2S 10:37 → 2N 08-29 18:32 → 3N 09-04 21:08

== ENCOUNTER 2021-09-09 16:52 | Inpatient (IN) ==
[2021-09-09 17:31] LABS: Basophils # (auto) 0.04 K/uL (0-0.2); Basophils % (auto) 0.2 %; Eosinophils # (auto) 0.17 K/uL (0-0.5); Eosinophils % (auto) 1.1 %; Hematocrit (blood only) 26.4 % (37-47); Hemoglobin 8.4 g/dL (12.0-16.0); Immature Granulocytes # (auto) 0.11 K/uL (0.00-0.02); Immature Granulocytes % (auto) 0.7 %; Lymphocytes # (auto) 0.82 K/uL (1.2-3.4); Lymphocytes % (auto) 5.1 %; Mean Corpuscular Hemoglobin 28.6 pg (25-34); Mean Corpuscular Hgb Conc 31.8 g/dL (32-36); Mean Corpuscular Volume 89.8 fL (80-100); Mean Platelet Volume 9.8 fL (7.4-10.4); Monocytes # (auto) 2.07 K/uL (0.11-0.59); Monocytes % (auto) 12.9 %; Neutrophils # (auto) 12.85 K/uL (1.4-6.5); Platelet Count 466 K/uL (130-400); RDW Standard Deviation 56.8 fL (36.4-46.3); Red Blood Count 2.94 M/uL (4.2-5.4); White Blood Count 16.06 K/uL (4.8-10.8)
[2021-09-09] MEDS ORDERED: VANCOMYCIN HCL 2,000 MG in SODIUM CHLORIDE 0.9% 500 ML IV ONE (17:38)
[2021-09-09] MEDS ORDERED: VANCOMYCIN CONSULT ACTIVE PRN (17:38)
[2021-09-09] MEDS ORDERED: ACETAMINOPHEN 325 MG TAB PO STA (17:38)
[2021-09-09] MEDS ORDERED: ONDANSETRON INJ 2 MG/ML 2 ML VIAL IV STA (17:39)
[2021-09-09] MEDS ORDERED: cefTRIAXone SODIUM 1,000 MG/50 ML BAG IV STA (17:39)
--- NOTE | 2021-09-09 17:41 | XRay Report ---
XR chest 1V portable CLINICAL HISTORY: SEPSIS. COMPARISON STUDY: 08/28/2021 TECHNIQUE: 1 view of the chest FINDINGS: Single frontal view of the chest demonstrates the heart to again be enlarged. Compared to previous ex amination, there has been interval resolution of bilateral pleural effusions and bibasilar opacities. However, a retrocardiac process cannot be excluded on this portable chest radiograph. The upper lung s are clear bilaterally. There is no evidence for pleural effusion. There is no evidence for vascular congestion. There is no acute osseous pathology. IMPRESSION: 1. Interval resolution of bilateral pleural effusions and bibasilar opacities. However, retrocardiac process cannot be excluded on this portable chest radiograph and follow-up PA and lateral radiographs are recommended. ACT 112: Negative or not required by law. Electronically signed by: Isauro Rodriguez M.D. 09/09/2021 5:39 PM
[2021-09-09 17:43] LABS: INR 1.3 (0.9-1.1); Partial Thromboplastin Ratio 1.2; Partial Thromboplastin Time 32.2 Seconds (21.0-31.0); Prothrombin Time 13.4 Seconds (9.0-12.0)
--- NOTE | 2021-09-09 17:46 | Emergency Department Note ---
Impression & Plan Sepsis, Hypoxia, Anemia, Leukocytosis, SHAMEKA (acute kidney injury), UTI (urinary tract infection) ED Provider Note NAME: JAYDON REAL AGE: 76 SEX: F : 1945 ARRIVES VIA: Ambulance INFORMANT: Patient, [facility] ED PROVIDER(S): Prashant Alvarado DO CHIEF COMPLAINT: Altered mental status HPI: Patient is a 76-year-old female with a past medical history of CVA, anemia, fevers, CKD, DVT, thrush, SHAMEKA and obesity who presents the ER chronically on Eliquis for fevers and altered mental status. Patient was recently admitted for a CVA early August as well as fever of unknown origin meeting sepsis criteria with chest x-ray showing pneumonia and likely UTI. Patient was treated aggressively with IV antibiotics and admitted to the hospital. She was eventually discharged to [facility]. Per report she has been confused the past day having fevers and was found to be hypoxic and referred into the ER. History is limited secondary to mentation ROS: Review of systems is limited secondary to mentation PAST MEDICAL HISTORY:See Below PAST SURGICAL HISTORY:See Below FAMILY HISTORY:See Below SOCIAL HISTORY:See Below HOME MEDICATIONS:See Below ALLERGIES:See Below VITALS:See Below PHYSICAL EXAMINATION: GENERAL: Sitting up in bed, alert, slightly ill-appearing on nasal cannula EYE EXAM: normal conjunctiva. PERRL and EOM's grossly intact. OROPHARYNX: no exudate, no erythema, lips, buccal mucosa, and tongue normal and mucous membranes are moist NECK: supple, no nuchal rigidity, no adenopathy, non-tender LUNGS: Diminished bilaterally. Normal chest wall mechanics HEART: Tachycardic, S1 normal and S2 normal ABDOMEN: abdomen soft, non-tender, normo-active bowel sounds, no masses, no rebound or guarding. BACK: Back is symmetrical on inspection and there is no deformity, no midline tenderness, no CVA tenderness. SKIN: no rashes and no bruising UPPER EXTREMITIES: upper extremities are grossly normal. LOWER EXTREMITIES: Pitting edema bilaterally with erythema and excoriation and induration along the left posterior thigh NEURO EXAM: Awake alert declining any pain but unable to state name or location. Renal nerves are grossly intact. No focal weakness in the upper extremities. Wiggles toes bilaterally MEDICAL DECISION MAKING: Patient is a 76-year-old female who presents the ER for the boasting complaint. IV was established blood was obtained. Labs show leukocytosis 16,000. Anemia at 8 consistent with previous. INR 1.3. Creatinine at 4.9 up from 0.9. LFTs is remarkable for an AST of 131. T bili 1.4. Troponin elevated 25. Pro-Luis Carlos at 3.3. UA consistent with a clear UTI. Posterior left thigh also appears to be consistent with a cellulitis. Chest x-ray with effusions and atelectasis versus infiltrates. CT head was negative. Patient was given IV fluids as well as broad-spectrum antibiotics. Rollins was placed. Patient was given judicious fluids and not 30 cc/kg she did have pitting edema. She was given hydrocortisone as she also has a history of adrenal suppression. She remained on 3 to 4 L nasal cannula and hypoxia resolved with this. She was updated at bedside. She was discussed with hospitalist admitted for further work-up. Triage Nursing notes reviewed. Limited review of prior medical records performed Vital Signs: reviewed and remarkable for no significant abnormalities Differential diagnosis: Sepsis, UTI, pneumonia, metabolic, electrolyte abnormalities, cardiac sources, intracerebral event, toxicologic, neurologic, as well as other pathologies. ER treatment provided: See below Diagnostics interpreted by me: ECG: Sinus rhythm rate 92 Left axis PVCs QTC 457 Septal Q waves Cardiac Monitoring: An order was placed for continuous cardiac monitoring. The monitor shows a rate of 90 with sinus rhythm. Laboratory studies: As stated above and show below. Imaging studies: CT head was negative Portable AP upright 1 view of the chest showed questionable infiltrate 2 views of the chest that showed pulmonary edema Consultation(s): Discussed with Ebenezer Dong for further evaluation and admission Procedures: none Critical Care: I have personally spent 33 minutes of critical care time in the direct management of this patient. This includes bedside care, interpretation of diagnostic studies, and testing, discussion with consultants, patient, and family members, and other required patient management activities. This 33 minutes is in excess of all separately billable procedures. 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 No chemo or XRT GERD (gastroesophageal reflux disease) Hearing deficit Hiatal hernia Hx of pulmonary embolus 2019 s/p foot surgery, was on Eliquis for a few months. Hypertension Kidney disease Stage III- does not follow with senior erp consultant Left leg DVT post op after foot surgery Melanoma Metastatic malignant melanoma dx'ed 10/29/20 Will require immunotherapy infusions- reason for port Obesity Seasonal allergies SOB (shortness of breath) on exertion Unilateral vocal cord paralysis sees Cheryl - Dr. Tinsley Surgical History H/O excision of mass History of ankle surgery RECONSTRUCTION OF LEFT ANKLE History of biopsy History of cataract surgery History of colonoscopy History of esophagogastroduodenoscopy (EGD) History of laryngoscopy Hx of bladder repair surgery Hx of foot surgery reconstructive right foot surgery (2019) Hx of hysterectomy Hx of total knee replacement RIGHT AND LEFT Hx of tubal ligation PONV (postoperative nausea and vomiting) Family History Mother Hearing loss Cancer Sister Hearing loss Cancer Other Breast cancer Family history non-contributory No family history of adverse response to anesthesia No family history of bleeding disorder Social History Smoking Status: Never smoker Second Hand Exposure: No; Hx Alcohol Use: No Hx Substance Use: No Preferred Language: Welsh Communication Ability: Impaired Radiation Physicist Required: No Beliefs That Will Affect Care: None marital status: Current Living Situation: [facility] Current Living Situation Comment: [facility] How many Children do You have: 2 Feels Safe at Home: Yes Safety Concerns: Feels Safe At This Time during the past year weight has: increased > 10 lbs Assistive Devices: Denture - Upper, Denture - Lower and Glasses Assistive Devices Comment: hearing aid 1 Allergies Allergies Allergy/AdvReac Type Severity Reaction Status Date / Time tramadol Allergy Mild NASUEA/CONF Verified 09/09/21 19:34 USION cephalexin [From Keflex] AdvReac Mild upset Verified 09/09/21 19:34 stomach Home Meds Home Medications Medication Instructions Recorded Confirmed amlodipine 5 mg tablet (Norvasc) 5 mg PO QAM 12/05/18 09/09/21 cholecalciferol (vitamin D3) 25 25 mcg PO QAM 12/11/19 09/09/21 mcg (1,000 unit) tablet (Vitamin D3) metoprolol tartrate 25 mg tablet 12.5 mg PO BID 03/26/20 09/09/21 diphenhydramine HCl 25 mg capsule 25 mg PO HS PRN cap 03/28/20 09/09/21 (Benadryl) multivitamin 1 tab PO QAM 04/25/20 09/09/21 cetirizine 10 mg tablet (Zyrtec) 10 mg PO QAM 01/14/21 09/09/21 montelukast 10 mg tablet 10 mg PO DAILY 08/15/21 09/09/21 acetaminophen 325 mg tablet 650 mg PO Q6H PRN 09/09/21 09/09/21 (Tylenol) levofloxacin 750 mg tablet 750 mg PO QPM 09/09/21 09/09/21 prednisone 10 mg tablet See Rx Instructions .ROUTE .COMPLEX 09/09/21 09/09/21 promethazine 25 mg tablet 25 mg PO Q6H PRN 09/09/21 09/09/21 Previous Rx's Medication Instructions Recorded nystatin 100,000 unit/mL oral 5 ml PO QID #140 ml 08/21/21 suspension aspirin 81 mg tablet,delayed 81 mg PO QAM #30 tab 09/03/21 release atorvastatin 40 mg tablet 40 mg PO QAM #30 tab 09/03/21 apixaban 2.5 mg tablet (Eliquis) 2.5 mg PO BID #60 tab 09/05/21 ferrous sulfate 325 mg (65 mg 325 mg PO QAM #30 tab 09/05/21 iron) tablet,delayed release hydrocortisone 10 mg tablet 10 mg PO HS #30 tab 09/05/21 (Cortef) hydrocortisone 10 mg tablet 20 mg PO QAM #60 tab 09/05/21 (Cortef) pantoprazole 40 mg tablet,delayed 40 mg PO BID #60 tab 09/05/21 release Results & Data (ED) Vital Signs Vital Signs - 24 hr 09/09/21 17:11 09/09/21 17:18 09/09/21 17:34 Temperature 38.1 C H Temperature Source Oral Pulse Rate 91 H Pulse Rate [Apical] Respiratory Rate 19 Respiratory Effort / Characteristics Non-Labored Blood Pressure 105/55 L Blood Pressure [Right Arm] Blood Pressure Mean 71 Blood Pressure Mean [Right Arm] Pulse Oximetry 94 88 L 95 Oxygen Delivery Method Nasal Cannula Nasal Cannula Oxygen Flow Rate 2 0 2 Sepsis Recent Fever Within 48 Hours Yes Sepsis New/Unexplained Change in Mental Status Yes Sepsis Action Taken by Nursing No Action Required Oxygen Flow Rate - Titration 2 Pulse Oximetry Post Tiitration 93 09/09/21 17:35 09/09/21 17:39 09/09/21 19:08 Temperature 37.1 C Temperature Source Pulse Rate 89 Pulse Rate [Apical] 92 H Respiratory Rate 20 20 Respiratory Effort / Characteristics Labored Blood Pressure 103/56 L Blood Pressure [Right Arm] 107/53 L Blood Pressure Mean 71 Blood Pressure Mean [Right Arm] 71 Pulse Oximetry 94 92 Oxygen Delivery Method Nasal Cannula Nasal Cannula Oxygen Flow Rate 2 2 Sepsis Recent Fever Within 48 Hours Sepsis New/Unexplained Change in Mental Status Sepsis Action Taken by Nursing Oxygen Flow Rate - Titration Pulse Oximetry Post Tiitration 09/09/21 19:30 Temperature Temperature Source Pulse Rate 87 Pulse Rate [Apical] Respiratory Rate 22 Respiratory Effort / Characteristics Blood Pressure 107/59 L Blood Pressure [Right Arm] Blood Pressure Mean 75 Blood Pressure Mean [Right Arm] Pulse Oximetry 93 Oxygen Delivery Method Oxygen Flow Rate Sepsis Recent Fever Within 48 Hours Sepsis New/Unexplained Change in Mental Status Sepsis Action Taken by Nursing Oxygen Flow Rate - Titration Pulse Oximetry Post Tiitration Laboratory Data Result diagrams: 09/09/21 17:08 09/09/21 17:08 Lab Results 09/09/21 09/09/21 09/09/21 Range/Units 17:08 17:08 17:08 WBC 16.06 H (4.8-10.8) K/uL RBC 2.94 L (4.2-5.4) M/uL Hgb 8.4 L (12.0-16.0) g/dL Hct 26.4 L (37-47) % MCV 89.8 (80-100) fL MCH 28.6 (25-34) pg MCHC 31.8 L (32-36) g/dL RDW Std Deviation 56.8 H (36.4-46.3) fL RDW Coeff of Dominic 19.0 H (11.5-14.5) % Plt Count 466 H (130-400) K/uL MPV 9.8 (7.4-10.4) fL Immature Gran % (Auto) 0.7 % Neut % (Auto) 80.0 % Lymph % (Auto) 5.1 % Gilchrist % (Auto) 12.9 % Eos % (Auto) 1.1 % Baso % (Auto) 0.2 % Neut # (Auto) 12.85 H (1.4-6.5) K/uL Lymph # (Auto) 0.82 L (1.2-3.4) K/uL Gilchrist # (Auto) 2.07 H (0.11-0.59) K/uL Eos # (Auto) 0.17 (0-0.5) K/uL Baso # (Auto) 0.04 (0-0.2) K/uL Immature Gran # (Auto) 0.11 H (0.00-0.02) K/uL PT 13.4 H (9.0-12.0) Seconds INR 1.3 H (0.9-1.1) APTT 32.2 H (21.0-31.0) Seconds PTT Ratio 1.2 Sodium 140 (136-145) mmol/L Potassium 4.2 (3.5-5.1) mmol/L Chloride 108 H (98-107) mmol/L Carbon Dioxide 24 (21-32) mmol/L Anion Gap 8 (3-11) BUN 47 H (6-23) mg/dl Creatinine 4.89 H* D (0.6-1.2) mg/dl Est Cr Clr Drug Dosing Not Reportable Est GFR ( Amer) 9.2 ml/min Est GFR (Non-Af Amer) 8.0 ml/min BUN/Creatinine Ratio 9.6 L (10-20) Glucose 119 H (70-99(Fasting)) mg/dl POC Glucose (70-99) mg/dl Lactate (0.4-2.0) mmol/L Calcium 8.0 L (8.5-10.1) mg/dl Magnesium 1.8 (1.7-2.4) mg/dl Total Bilirubin 1.2 H (0.2-1.0) mg/dl AST 131 H (13-39) U/L ALT 46 (7-52) U/L Alkaline Phosphatase 90 (34-104) U/L Troponin I High Sens 24.6 H (0-14) pg/ml Total Protein 5.5 L (6.0-8.3) gm/dl Albumin 2.3 L (3.4-5.0) gm/dl Globulin 3.2 (2.5-4.0) gm/dl Albumin/Globulin Ratio 0.7 L (0.9-2) Procalcitonin (0-0.5) ng/ml Urine Color Urine Appearance (Clear) Urine pH (4.5-7.5) Ur Specific Rembert (1.000-1.030) Urine Protein (Negative) Urine Glucose (UA) (Negative) Urine Ketones (Negative) Urine Blood (Negative) Urine Nitrite (Negative) Urine Bilirubin (Negative) Urine Urobilinogen (Negative) Ur Leukocyte Esterase (Negative) Urine RBC (0-4) /hpf Urine WBC (0-5) /hpf Ur Epithelial Cells (0-5) /lpf Urine Bacteria (Negative) Urine Yeast (None Prsent) SARS-CoV-2 (PCR) (Negative) Influenza Type A (PCR) (Neg) Influenza Type B (PCR) (Neg) RSV (RT-PCR) (Neg) 09/09/21 09/09/21 09/09/21 Range/Units 17:08 17:25 17:27 WBC (4.8-10.8) K/uL RBC (4.2-5.4) M/uL Hgb (12.0-16.0) g/dL Hct (37-47) % MCV (80-100) fL MCH (25-34) pg MCHC (32-36) g/dL RDW Std Deviation (36.4-46.3) fL RDW Coeff of Dominic (11.5-14.5) % Plt Count (130-400) K/uL MPV (7.4-10.4) fL Immature Gran % (Auto) % Neut % (Auto) % Lymph % (Auto) % Gilchrist % (Auto) % Eos % (Auto) % Baso % (Auto) % Neut # (Auto) (1.4-6.5) K/uL Lymph # (Auto) (1.2-3.4) K/uL Gilchrist # (Auto) (0.11-0.59) K/uL Eos # (Auto) (0-0.5) K/uL Baso # (Auto) (0-0.2) K/uL Immature Gran # (Auto) (0.00-0.02) K/uL PT (9.0-12.0) Seconds INR (0.9-1.1) APTT (21.0-31.0) Seconds PTT Ratio Sodium (136-145) mmol/L Potassium (3.5-5.1) mmol/L Chloride (98-107) mmol/L Carbon Dioxide (21-32) mmol/L Anion Gap (3-11) BUN (6-23) mg/dl Creatinine (0.6-1.2) mg/dl Est Cr Clr Drug Dosing Est GFR ( Amer) ml/min Est GFR (Non-Af Amer) ml/min BUN/Creatinine Ratio (10-20) Glucose (70-99(Fasting)) mg/dl POC Glucose 121 H (70-99) mg/dl Lactate 0.6 (0.4-2.0) mmol/L Calcium (8.5-10.1) mg/dl Magnesium (1.7-2.4) mg/dl Total Bilirubin (0.2-1.0) mg/dl AST (13-39) U/L ALT (7-52) U/L Alkaline Phosphatase (34-104) U/L Troponin I High Sens (0-14) pg/ml Total Protein (6.0-8.3) gm/dl Albumin (3.4-5.0) gm/dl Globulin (2.5-4.0) gm/dl Albumin/Globulin Ratio (0.9-2) Procalcitonin 3.36 H (0-0.5) ng/ml Urine Color Urine Appearance (Clear) Urine pH (4.5-7.5) Ur Specific Rembert (1.000-1.030) Urine Protein (Negative) Urine Glucose (UA) (Negative) Urine Ketones (Negative) Urine Blood (Negative) Urine Nitrite (Negative) Urine Bilirubin (Negative) Urine Urobilinogen (Negative) Ur Leukocyte Esterase (Negative) Urine RBC (0-4) /hpf Urine WBC (0-5) /hpf Ur Epithelial Cells (0-5) /lpf Urine Bacteria (Negative) Urine Yeast (None Prsent) SARS-CoV-2 (PCR) (Negative) Influenza Type A (PCR) (Neg) Influenza Type B (PCR) (Neg) RSV (RT-PCR) (Neg) 09/09/21 09/09/21 Range/Units 17:47 19:10 WBC (4.8-10.8) K/uL RBC (4.2-5.4) M/uL Hgb (12.0-16.0) g/dL Hct (37-47) % MCV (80-100) fL MCH (25-34) pg MCHC (32-36) g/dL RDW Std Deviation (36.4-46.3) fL RDW Coeff of Dominic (11.5-14.5) % Plt Count (130-400) K/uL MPV (7.4-10.4) fL Immature Gran % (Auto) % Neut % (Auto) % Lymph % (Auto) % Gilchrist % (Auto) % Eos % (Auto) % Baso % (Auto) % Neut # (Auto) (1.4-6.5) K/uL Lymph # (Auto) (1.2-3.4) K/uL Gilchrist # (Auto) (0.11-0.59) K/uL Eos # (Auto) (0-0.5) K/uL Baso # (Auto) (0-0.2) K/uL Immature Gran # (Auto) (0.00-0.02) K/uL PT (9.0-12.0) Seconds INR (0.9-1.1) APTT (21.0-31.0) Seconds PTT Ratio Sodium (136-145) mmol/L Potassium (3.5-5.1) mmol/L Chloride (98-107) mmol/L Carbon Dioxide (21-32) mmol/L Anion Gap (3-11) BUN (6-23) mg/dl Creatinine (0.6-1.2) mg/dl Est Cr Clr Drug Dosing Est GFR ( Amer) ml/min Est GFR (Non-Af Amer) ml/min BUN/Creatinine Ratio (10-20) Glucose (70-99(Fasting)) mg/dl POC Glucose (70-99) mg/dl Lactate (0.4-2.0) mmol/L Calcium (8.5-10.1) mg/dl Magnesium (1.7-2.4) mg/dl Total Bilirubin (0.2-1.0) mg/dl AST (13-39) U/L ALT (7-52) U/L Alkaline Phosphatase (34-104) U/L Troponin I High Sens (0-14) pg/ml Total Protein (6.0-8.3) gm/dl Albumin (3.4-5.0) gm/dl Globulin (2.5-4.0) gm/dl Albumin/Globulin Ratio (0.9-2) Procalcitonin (0-0.5) ng/ml Urine Color Red Urine Appearance Turbid A (Clear) Urine pH 5.5 (4.5-7.5) Ur Specific Rembert 1.020 (1.000-1.030) Urine Protein 3+ H (Negative) Urine Glucose (UA) Trace H (Negative) Urine Ketones Trace H (Negative) Urine Blood 3+ H (Negative) Urine Nitrite Positive A (Negative) Urine Bilirubin 2+ H (Negative) Urine Urobilinogen Negative (Negative) Ur Leukocyte Esterase Trace H (Negative) Urine RBC >30 H (0-4) /hpf Urine WBC >30 H (0-5) /hpf Ur Epithelial Cells 0-5 (0-5) /lpf Urine Bacteria 4+ H (Negative) Urine Yeast Present A (None Prsent) SARS-CoV-2 (PCR) NEGATIVE (Negative) Influenza Type A (PCR) Negative (Neg) Influenza Type B (PCR) Negative (Neg) RSV (RT-PCR) Negative (Neg) Administered Medications Heparin Sodium (Porcine) (Heparin Sod 5,000 Unit/0.5 Ml Vial) 5,000 units SQ Q12 [facility] Stop: 10/09/21 21:19 Last Admin: 09/09/21 22:36 Dose: 5,000 units Documented by: [id number] Meropenem 500 mg/ Syringe 10 mls @ 2 mls/min IV Q12H [facility]; Protocol Stop: 09/11/21 21:59 Last Admin: 09/09/21 22:36 Dose: 2 mls/min Documented by: [id number] Metoprolol Tartrate (Metoprolol Tartrate 25 Mg Tab) 12.5 mg PO BID [facility] Stop: 10/09/21 21:19 Last Admin: 09/09/21 22:37 Dose: 12.5 mg Documented by: [id number] Pantoprazole Sodium (Pantoprazole 40 Mg Tab) 40 mg PO BID [facility] Stop: 10/09/21 21:19 Last Admin: 09/09/21 22:37 Dose: 40 mg Documented by: [id number] Discontinued Medications Acetaminophen (Acetaminophen 325 Mg Tab) 650 mg PO NOW STA Stop: 09/09/21 17:39 Last Admin: 09/09/21 19:04 Dose: Not Given Documented by: [id number] Acetaminophen (Acetaminophen 650 Mg Supp) 650 mg ME NOW STA Stop: 09/09/21 17:51 Last Admin: 09/09/21 17:58 Dose: 650 mg Documented by: [id number] Hydrocortisone Sodium Succinate (Hydrocortisone Sod Succinate 100 Mg/2 Ml Vial) 100 mg IV NOW STA Stop: 09/09/21 17:51 Last Admin: 09/09/21 17:58 Dose: 100 mg Documented by: [id number] Vancomycin HCl 2,000 mg/ (Sodium Chloride) 540 mls @ 200 mls/hr IV NOW ONE Stop: 09/09/21 20:19 Last Infusion: 09/09/21 19:58 Dose: 0 mls/hr Documented by: [id number] Admin: 09/09/21 19:08 Dose: 200 mls/hr Documented by: [id number] Ceftriaxone Sodium (Rocephin) 1,000 mg in 50 mls @ 100 mls/hr IV NOW STA Stop: 09/09/21 18:08 Last Admin: 09/09/21 19:05 Dose: Not Given Documented by: [id number] Ceftriaxone Sodium (Rocephin) 2,000 mg in 70 mls @ 140 mls/hr IV NOW STA Stop: 09/09/21 18:19 Last Infusion: 09/09/21 19:08 Dose: 0 mls/hr Documented by: [id number] Admin: 09/09/21 18:38 Dose: 140 mls/hr Documented by: [id number] Sodium Chloride (Nss 1000ml) 1,000 mls @ 999 mls/hr IV .Q1H1M ONE Stop: 09/09/21 19:47 Last Infusion: 09/09/21 20:09 Dose: 0 mls/hr Documented by: [id number] Admin: 09/09/21 19:08 Dose: 999 mls/hr Documented by: [id number] Ondansetron HCl (Ondansetron Inj 2 Mg/Ml 2 Ml Vial) 4 mg IV NOW STA Stop: 09/09/21 17:40 Last Admin: 09/09/21 18:34 Dose: 4 mg Documented by: [id number] Imaging Data Radiologist's Impression: Chest X-Ray 09/09/21 17:22 XR chest 1V portable CLINICAL HISTORY: SEPSIS. COMPARISON STUDY: 08/28/2021 TECHNIQUE: 1 view of the chest FINDINGS: Single frontal view of the chest demonstrates the heart to again be enlarged. Compared to previous examination, there has been interval resolution of bilateral pleural effusions and bibasilar opacities. However, a retrocardiac process cannot be excluded on this portable chest radiograph. The upper lungs are clear bilaterally. There is no evidence for pleural effusion. There is no evidence for vascular congestion. There is no acute osseous pathology. IMPRESSION: 1. Interval resolution of bilateral pleural effusions and bibasilar opacities. However, retrocardiac process cannot be excluded on this portable chest radiograph and follow-up PA and lateral radiographs are recommended. ACT 112: Negative or not required by law. Electronically signed by: Isauro Rodriguez M.D. 09/09/2021 5:[address] 09/09/21 17:40 CT head/brain wo con CLINICAL HISTORY: ams COMPARISON STUDY: 08/25/2021 CT DOSE: 537.48 mGy.cm TECHNIQUE: Standard CT of the Brain was performed without IV contrast. A dose lowering technique was utilized adhering to the principles of ALARA. FINDINGS: Extraaxial space: There is no evidence for subdural hematoma. There are no extr a-axial fluid collections. Ventricles and cisterns: The ventricles are mildly dilated bilaterally. There is no evidence for midline shift or mass effect. Parenchyma: There is no subarachnoid or intraparenchymal hemorrhage. There is no evidence for an acute infarct or cerebral edema. Old right frontal parietal infarct is again seen with encephalomalacia. There is mild cerebral cortical atrophy and decreased attenuation in the periventricular white matter representing remote small vessel disease. There are no gross mass lesions. Osseous structures: There is no evidence for an acute fracture. The visualized paranasal sinuses are clear. The mastoid air cells are clear bilaterally. Soft tissues: There is no evidence for focal soft tissue swelling. IMPRESSION: 1. No acute intracerebral pathology. 2. Cerebral cortical atrophy, remote small vessel disease and old right frontal parietal infarct are again seen. ACT 112: Negative or not required by law. Electronically signed by: Isauro Rodriguez M.D. 09/09/2021 6:40 PM Chest X-Ray 09/09/21 17:43 XR chest 2V PA/lateral CLINICAL HISTORY: hypoxic/sepsis. COMPARISON STUDY: Portable chest from 09/10/2023 TECHNIQUE: 2 views of the chest FINDINGS: Frontal and lateral radiographs of the chest demonstrate the heart strain to again be enlarged. Lateral radiographs confirm the presence of small bilateral p leural effusions, left greater than right and left lower lobe compressive atelectasis/collapse. No definite confluent alveolar opacities or air bronchograms are seen. There is no evidence for vascular congestion. There is no acute osseous pathology. IMPRESSION: 1. Small bilateral pleural effusions, left greater than right and left lower lobe atelectasis/collapse. 2. No definite confluent alveolar opacities or air bronchograms. ACT 112: Negative or not required by law. Electronically signed by: Isauro Rodriguez M.D. 09/09/2021 7:03 PM Discharge Plan Visit Data Chief Complaint: Confusion Stated Complaint: AMS, EDEMA, BUTTOCKS WOUND ED Provider: Prashant Alvarado Discharge Problem: Sepsis, Hypoxia, Anemia, Leukocytosis, SHAMEKA (acute kidney injury), UTI (urinary tract infection) Patient Disposition: Admitted As Inpatient Discharge Instructions Interventions: ED Discharge Assessment Last Done: 09/09/21 20:26 Discharge Problem: Sepsis Qualifiers: Sepsis type: sepsis due to unspecified organism Sepsis acute organ dysfunction status: unspecified Qualified Code(s): A41.9 - Sepsis, unspecified organism Anemia Qualifiers: Anemia type: unspecified type Qualified Code(s): D64.9 - Anemia, unspecified Leukocytosis Qualifiers: Leukocytosis type: unspecified Qualified Code(s): D72.829 - Elevated white blood cell count, unspecified UTI (urinary tract infection) Qualifiers: Urinary tract infection type: acute cystitis Hematuria presence: with hematuria Qualified Code(s): N30.01 - Acute cystitis with hematuria
[2021-09-09] MEDS ORDERED: cefTRIAXone SODIUM 2,000 MG/70 ML BAG IV STA (17:50)
[2021-09-09] MEDS ORDERED: ACETAMINOPHEN 650 MG SUPP PR STA (17:50)
[2021-09-09] MEDS ORDERED: HYDROCORTISONE SOD SUCCINATE 100 MG/2 ML VIAL IV STA (17:50)
[2021-09-09 17:58] LABS: Troponin I High Sensitivity 24.6 pg/ml (0-14)
--- NOTE | 2021-09-09 18:43 | CT Scan Report ---
CT head/brain wo con CLINICAL HISTORY: ams COMPARISON STUDY: 08/25/2021 CT DOSE: 537.48 mGy.cm TECHNIQUE: Standard CT of the Brain was performed without IV contrast. A dose lowering technique was utilized adhering to the principles of ALARA. FINDINGS: Extraaxial space: There is no evidence for subdural hematoma. There are no extra-axial fluid collecti ons. Ventricles and cisterns: The ventricles are mildly dilated bilaterally. There is no evidence for midl ine shift or mass effect. Parenchyma: There is no subarachnoid or intraparenchymal hemorrhage. There is no evidence for an acut e infarct or cerebral edema. Old right frontal parietal infarct is again seen with encephalomalacia. There is mild cerebral cortical atrophy and decreased attenuation in the periventricular white matter representing remote small vessel disease. There are no gross mass lesions. Osseous structures: There is no evidence for an acute fracture. The visualized paranasal sinuses are clear. The mastoid air cells are clear bilaterally. Soft tissues: There is no evidence for focal soft tissue swelling. IMPRESSION: 1. No acute intracerebral pathology. 2. Cerebral cortical atrophy, remote small vessel disease and old right frontal parietal infarct are again seen. ACT 112: Negative or not required by law. Electronically signed by: Isauro Rodriguez M.D. 09/09/2021 6:40 PM
[2021-09-09 18:44] LABS: Alanine Aminotransferase 46 U/L (7-52); Albumin Globulin Ratio 0.7 (0.9-2); Albumin Level 2.3 gm/dl (3.4-5.0); Alkaline Phosphatase 90 U/L (34-104); Anion Gap 8 (3-11); Aspartate Aminotransferase 131 U/L (13-39); BUN Creatinine Ratio 9.6 (10-20); Bilirubin,Total 1.2 mg/dl (0.2-1.0); Blood Urea Nitrogen 47 mg/dl (6-23); Carbon Dioxide 24 mmol/L (21-32); Chloride 108 mmol/L (98-107); Est GFR (African American) 9.2 ml/min; Globulin 3.2 gm/dl (2.5-4.0); Glucose 119 mg/dl (70-99(Fasting)); Magnesium 1.8 mg/dl (1.7-2.4); Potassium 4.2 mmol/L (3.5-5.1); Sodium 140 mmol/L (136-145); Total Protein 5.5 gm/dl (6.0-8.3)
[2021-09-09] MEDS ORDERED: SODIUM CHLORIDE 0.9% 1000ML 1,000 ML IV ONE (18:47)
--- NOTE | 2021-09-09 19:05 | XRay Report ---
XR chest 2V PA/lateral CLINICAL HISTORY: hypoxic/sepsis. COMPARISON STUDY: Portable chest from 09/10/2023 TECHNIQUE: 2 views of the chest FINDINGS: Frontal and lateral radiographs of the chest demonstrate the heart strain to again be enlarged. Later al radiographs confirm the presence of small bilateral pleural effusions, left greater than right and left lower lobe compressive atelectasis/collapse. No definite confluent alveolar opacities or air br onchograms are seen. There is no evidence for vascular congestion. There is no acute osseous patholog y. IMPRESSION: 1. Small bilateral pleural effusions, left greater than right and left lower lobe atelectasis/collaps e. 2. No definite confluent alveolar opacities or air bronchograms. ACT 112: Negative or not required by law. Electronically signed by: Isauro Rodriguez M.D. 09/09/2021 7:03 PM
[2021-09-09 19:26] LABS: Influenza A virus by PCR Negative (Neg); Influenza B virus by PCR Negative (Neg); RSV by PCR Negative (Neg); SARS CoV2 RNA(COVID-19) InHosp NEGATIVE (Negative)
--- NOTE | 2021-09-09 19:35 | History & Physical Report ---
Date of Service September 09, 2021 Assessment & Plan (1) Sepsis: Plan: Patient once again presents with similar symptoms constellations from her previous admission however she now has white count of 16,000, procalcitonin of 3, leftward shift with immature granulocytes seen however no lactic acidosis is present metabolic encephalopathy is present on admission screening imaging does not suggest intra thoracic or intra-abdominal pathology. However acute renal failure is concerning for urological pathology. Subsequently patient will be covered broadly with meropenem and caspofungin, was given vancomycin with poor renal function so should be around a long time will s top it and check random vancomycin level and convert to daptomycin when level is low. Blood and urine cultures will be sent esr be checked in the morning Current infectious disease consult will be undertaken Patient has a new right upper sternal border murmur there is no consistent documentation of murmur in the past record. She is no peripheral stigmata of endocarditis. We will get a sed rate and check a limited echocardiogram to compare to the one from August 28 to look for valvular incompetence either endocarditis we will order additional 2 sets of blood cultures for 4 sets total (2) Anemia: Plan: Patient is anemia last hospital stay required 2 units of blood she is 8.4 will hold 6 of and use prophylactic heparin at the next dose with OB tomorrow morning (3) SHAMEKA (acute kidney injury): Plan: Patient's creatinine is elevated to 4, unfortunate was given vancomycin in the ER. Hold nephrotoxic medications and hydrate we will perform an ultrasound of the renal collecting system looking for hydronephrosis or perinephric stranding etc. (4) Clear cell sarcoma: (5) History of DVT (deep vein thrombosis): Plan: Patient is apixaban will be held should be on heparin subcutaneously due to her anemia will have a more levity to stop this. He had a jugular DVT in February 2021 (6) Cerebrovascular accident (CVA): Plan: Patient previously on as aspirin and statin. At this point time we will continue his medications Risk factor modification will be continued will have to watch her antihypertensive medications given her blood pressures on presentation will hold her amlodipine and continue metoprolol at this point in time to avoid rebound tachycardia (7) Adrenal suppression: Plan: Patient on chronic hydrocortisone received steroid boluses while in the hospital. At this point in time she is acutely ill will use hydrocortisone 50 every 8 and determine stepdown based on her clinical response History of Present Illness Primary Care Provider: [facility] 76-year-old female who is readmitted after discharge on September 05 with fever and concerns for sepsis. Last admission was similar she was treated for pneumonia and a fungal UTI eventually felt that her fever was from Keytruda and effervescing with steroids. She also had diagnosis of a subacute stroke in the right parietal area During hospital stay she is on multiple medications including Zosyn and Levaquin Zyvox vancomycin and as mentioned a 5-day course of fluconazole as recommended by infectious disease for Cherry albicans dublensens and glabrata culture of urine The patient had anemia during her hospital stay as low as 7.7 given 2 units of blood she presents similarly anemic now with a hemoglobin 8.4, she is seen by GI but not scope she maintains on Eliquis with dose reduction to 2.5 for history of DVT. Patient presents with metabolic encephalopathy fever low blood pressure and elevated procalcitonin and leukocytosis concern for sepsis. Undisclosed source concerns for fungal and fungemia Allergies Allergy/AdvReac Type Severity Reaction Status Date / Time tramadol Allergy Mild NASUEA/CONF Verified 09/09/21 19:34 USION cephalexin [From Keflex] AdvReac Mild upset Verified 09/09/21 19:34 stomach Home Medications Medication Instructions Recorded Confirmed Type amlodipine 5 mg tablet (Norvasc) 5 mg PO QAM 12/05/18 09/09/21 History cholecalciferol (vitamin D3) 25 25 mcg PO QAM 12/11/19 09/09/21 History mcg (1,000 unit) tablet (Vitamin D3) metoprolol tartrate 25 mg tablet 12.5 mg PO BID 03/26/20 09/09/21 History diphenhydramine HCl 25 mg capsule 25 mg PO HS PRN cap 03/28/20 09/09/21 History (Benadryl) multivitamin 1 tab PO QAM 04/25/20 09/09/21 History cetirizine 10 mg tablet (Zyrtec) 10 mg PO QAM 01/14/21 09/09/21 History montelukast 10 mg tablet 10 mg PO DAILY 08/15/21 09/09/21 History nystatin 100,000 unit/mL oral 5 ml PO QID #140 ml 08/21/21 09/09/21 Rx suspension aspirin 81 mg tablet,delayed 81 mg PO QAM #30 tab 09/03/21 09/09/21 Rx release atorvastatin 40 mg tablet 40 mg PO QAM #30 tab 09/03/21 09/09/21 Rx apixaban 2.5 mg tablet (Eliquis) 2.5 mg PO BID #60 tab 09/05/21 09/09/21 Rx ferrous sulfate 325 mg (65 mg 325 mg PO QAM #30 tab 09/05/21 09/09/21 Rx iron) tablet,delayed release hydrocortisone 10 mg tablet 10 mg PO HS #30 tab 09/05/21 09/09/21 Rx (Cortef) hydrocortisone 10 mg tablet 20 mg PO QAM #60 tab 09/05/21 09/09/21 Rx (Cortef) pantoprazole 40 mg tablet,delayed 40 mg PO BID #60 tab 09/05/21 09/09/21 Rx release acetaminophen 325 mg tablet 650 mg PO Q6H PRN 09/09/21 09/09/21 History (Tylenol) levofloxacin 750 mg tablet 750 mg PO QPM 09/09/21 09/09/21 History prednisone 10 mg tablet See Rx Instructions .ROUTE .COMPLEX 09/09/21 09/09/21 History promethazine 25 mg tablet 25 mg PO Q6H PRN 09/09/21 09/09/21 History Past Med/Surg History Medical History Cerebral infarct "Presumed old right frontal lobe cerebral infarct" - per Dec 2019 PET scan -- pt unaware/denies 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 No chemo or XRT GERD (gastroesophageal reflux disease) Hearing deficit Hiatal hernia Hx of pulmonary embolus 2018 s/p foot surgery, was on Eliquis for a few months. Hypertension Kidney disease Stage III- does not follow with patternmaker Left leg DVT post op after foot surgery Melanoma Metastatic malignant melanoma dx'ed 10/29/20 Will require immunotherapy infusions- reason for port Obesity Seasonal allergies SOB (shortness of breath) on exertion Unilateral vocal cord paralysis sees [facility] - Dr. Tinsley Surgical History H/O excision of mass History of ankle surgery RECONSTRUCTION OF LEFT ANKLE History of biopsy History of cataract surgery History of colonoscopy History of esophagogastroduodenoscopy (EGD) History of laryngoscopy Hx of bladder repair surgery Hx of foot surgery reconstructive right foot surgery (2019) Hx of hysterectomy Hx of total knee replacement RIGHT AND LEFT Hx of tubal ligation PONV (postoperative nausea and vomiting) Family History Mother Hearing loss Cancer Sister Hearing loss Cancer Other Breast cancer Family history non-contributory No family history of adverse response to anesthesia No family history of bleeding disorder Social History Smoking Status: Unknown if ever smoked Second Hand Exposure: No; Hx Alcohol Use: No Hx Substance Use: No Preferred Language: Bulgarian Communication Ability: Impaired Legal Examiner Required: No Beliefs That Will Affect Care: None marital status: Current Living Situation: [facility] How many Children do You have: 2 Feels Safe at Home: Yes during the past year weight has: increased > 10 lbs Assistive Devices: Cane, Denture - Upper, Denture - Lower and Walker Review of Systems Review of Systems: Unobtainable due to cognitive status Patient in no significant distress she has no focal complaints she is markedly confused Physical Exam Physical Exam: The patient appeared well nourished and normally developed. Vital signs as documented. Head exam is normocephalic atraumatic Neck is without JVD, thyromegaly, or carotid bruits. No lymphadenopathy Lungs are clear to auscultation, no focal loss of breath sounds Cardiac exam, Rhythm is regular.. Milad heart systolic ejection murmur at the left upper sternal border 2-3 over 6 Abdominal exam reveals normal bowel sounds, soft non tender, no masses Extremities are nonedematous and both pedal pulses are present Neurologic exam is alert and oriented x1 talking nonsensically no focal loss of strength or sensation Skin is without bruises or rashes Results & Data Results & Data ([facility]) Vital Signs (Past 12 Hours) Vital Signs Temp Pulse Pulse Resp BP BP Pulse Ox 09/09/21 17:39 92 H 20 107/53 L 94 09/09/21 17:34 95 09/09/21 17:18 88 L 09/09/21 17:11 100.6 F H 91 H 19 105/55 L 94 Diagnostic Findings Chest X-Ray 09/09/21 17:22 XR chest 1V portable CLINICAL HISTORY: SEPSIS. COMPARISON STUDY: 08/28/2021 TECHNIQUE: 1 view of the chest FINDINGS: Single frontal view of the chest demonstrates the heart to again be enlarged. Compared to previous examination, there has been interval resolution of bilateral pleural effusions and bibasilar opacities. However, a retrocardiac process cannot be excluded on this portable chest radiograph. The upper lungs are clear bilaterally. There is no evidence for pleural effusion. There is no evidence for vascular congestion. There is no acute osseous pathology. IMPRESSION: 1. Interval resolution of bilateral pleural effusions and bibasilar opacities. However, retrocardiac process cannot be excluded on this portable chest radiograph and follow-up PA and lateral radiographs are recommended. ACT 112: Negative or not required by law. Electronically signed by: Isauro Rodriguez M.D. 09/09/2021 5:[address] 09/09/21 17:40 CT head/brain wo con CLINICAL HISTORY: ams COMPARISON STUDY: 08/25/2021 CT DOSE: 537.48 mGy.cm TECHNIQUE: Standard CT of the Brain was performed without IV contrast. A dose lowering technique was utilized adhering to the principles of ALARA. FINDINGS: Extraaxial space: There is no evidence for subdural hematoma. There are no extra-axial fluid collections. Ventricles and cisterns: The ventricles are mildly dilated bilaterally. There is no evidence for midline shift or mass effect. Parenchyma: There is no subarachnoid or intraparenchymal hemorrhage. There is no evidence for an acute infarct or cerebral edema. Old right frontal parietal infarct is again seen with encephalomalacia. There is mild cerebral cortical atrophy and decreased attenuation in the periventricular white matter representing remote small vessel disease. There are no gross mass lesions. Osseous structures: There is no evidence for an acute fracture. The visualized paranasal sinuses are clear. The mastoid air cells are clear bilaterally. Soft tissues: There is no evidence for focal soft tissue swelling. IMPRESSION: 1. No acute intracerebral pathology. 2. Cerebral cortical atrophy, remote small vessel disease and old right frontal parietal infarct are again seen. ACT 112: Negative or not required by law. Electronically signed by: Isauro Rodriguez M.D. 09/09/2021 6:40 PM Chest X-Ray 09/09/21 17:43 XR chest 2V PA/lateral CLINICAL HISTORY: hypoxic/sepsis. COMPARISON STUDY: Portable chest from 09/10/2023 TECHNIQUE: 2 views of the chest FINDINGS: Frontal and lateral radiographs of the chest demonstrate the heart strain to again be enlarged. Lateral radiographs confirm the presence of small bilateral pleural effusions, left greater than right and left lower lobe compressive atelectasis/collapse. No definite confluent alveolar opacities or air bronchograms are seen. There is no evidence for vascular congestion. There is no acute osseous pathology. IMPRESSION: 1. Small bilateral pleural effusions, left greater than right and left lower lobe atelectasis/collapse. 2. No definite confluent alveolar opacities or air bronchograms. ACT 112: Negative or not required by law. Electronically signed by: Isauro Rodriguez M.D. 09/09/2021 7:03 PM PG Care Time/CCT Total # of Minutes Spent Total Time Spent with Patient: Total time spent is greater than 50% in coordination of care (as documented) at patient's floor/unit and/or counseling patient: Coding Level of Care Code 78890 Initial Inpt Care Lvl 3 Diagnoses Sepsis A41.9; R65.20; J96.01 Acute respiratory failure type: with hypoxia Sepsis acute organ dysfunction status: with acute organ dysfunction Sepsis type: sepsis due to unspecified organism Severe sepsis acute organ dysfunction type: acute respiratory failure Severe sepsis shock status: without septic shock Anemia D64.9 SHAMEKA (acute kidney injury) N17.9 Clear cell sarcoma C49.9 History of DVT (deep vein thrombosis) Z86.718 Cerebrovascular accident (CVA) I63.9 Adrenal suppression E27.49 (1) Sepsis Acute respiratory failure type: with hypoxia Sepsis acute organ dysfunction status: with acute organ dysfunction Sepsis type: sepsis due to unspecified organism Severe sepsis acute organ dysfunction type: acute respiratory failure Severe sepsis shock status: without septic shock Qualified Code(s): A41.9 - Sepsis, unspecified organism; R65.20 - Severe sepsis without septic shock; J96.01 - Acute respiratory failure with hypoxia
[2021-09-09 19:44] LABS: Appearance Urine Turbid (Clear); Bilirubin Urine 2+ (Negative); Blood Urine 3+ (Negative); Color Urine Red; Glucose Urine UA Trace (Negative); Ketones Urine Trace (Negative); Leukocyte Esterase Urine Trace (Negative); Nitrite Urine Positive (Negative); Protein Urine 3+ (Negative); Urobilinogen Urine Negative (Negative); pH Urine 5.5 (4.5-7.5)
[2021-09-09 19:50] LABS: Bacteria Urine 4+ (Negative); Epithelial Cell Urine 0-5 /lpf (0-5); RBC Urine >30 /hpf (0-4); WBC Urine >30 /hpf (0-5)
[2021-09-09] MEDS ORDERED: ONDANSETRON INJ 2 MG/ML 2 ML VIAL IV PRN (21:20)
[2021-09-09] MEDS ORDERED: MoRPHine SULFATE 2 MG/ML CARP IV PRN (21:20)
[2021-09-09] MEDS ORDERED: POLYETHYLENE (MIRALAX) 17 GM PACK PO PRN (21:20)
[2021-09-09] MEDS ORDERED: MEROPENEM CONSULT ACTIVE PRN (21:20)
[2021-09-09] MEDS ORDERED: METOPROLOL TARTRATE 25 MG TAB PO SCH (21:20)
[2021-09-09] MEDS ORDERED: CASPOFUNGIN 70 MG in SODIUM CHLORIDE 0.9% 250 ML IV ONE (22:30)
[2021-09-09] MEDS: HEPARIN SOD 5,000 UNIT/0.5 ML VIAL SQ SCH (22:36)
[2021-09-09] MEDS: MEROPENEM 500 MG in SYRINGE 0 ML IV SCH (22:36)
[2021-09-09] MEDS: PANTOprazole 40 MG TAB PO SCH (22:37)
[2021-09-10 07:31] LABS: Hematocrit (blood only) 28.1 % (37-47); Hemoglobin 8.8 g/dL (12.0-16.0); Mean Corpuscular Hemoglobin 29.2 pg (25-34); Mean Corpuscular Hgb Conc 31.3 g/dL (32-36); Mean Corpuscular Volume 93.4 fL (80-100); Mean Platelet Volume 9.7 fL (7.4-10.4); Platelet Count 448 K/uL (130-400); RDW Coefficient of Variation 18.8 % (11.5-14.5); RDW Standard Deviation 60.3 fL (36.4-46.3); Red Blood Count 3.01 M/uL (4.2-5.4); White Blood Count 16.44 K/uL (4.8-10.8)
[2021-09-10 07:49] LABS: BUN Creatinine Ratio 10.4 (10-20); Calcium 8.2 mg/dl (8.5-10.1); Creatinine Clr Calc Pharmacy 10.8 ml/min; Est GFR (African American) 8.2 ml/min; Est GFR (Non-African American) 7.1 ml/min; Potassium 4.5 mmol/L (3.5-5.1)
--- NOTE | 2021-09-10 07:50 | Ultrasound Report ---
RENAL ULTRASOUND CLINICAL HISTORY: Acute renal failure. COMPARISON STUDY: CT of the abdomen and pelvis August 27, 2021. TECHNIQUE: Sonography of the kidneys and the urinary bladder was performed. FINDINGS: There is no hydronephrosis. The right kidney measures 10 x 4.5 x 4.9 cm and the left measur es 9.2 x 5 x 4.5 cm. Increased renal echogenicity is noted. No renal calculi or masses are identified by sonography. Bladder is collapsed, containing a Rollins balloon. IMPRESSION: 1. No hydronephrosis. 2. Echogenic kidneys suggestive of medical renal disease. ACT 112: Negative or not required by law. Electronically signed by: Tyler Guerrero M.D. 09/10/2021 7:49 AM
[2021-09-10] MEDS ORDERED: SODIUM CHLORIDE 0.9% 1000ML 1,000 ML IV SCH (09:00)
[2021-09-10] MEDS ORDERED: ATORVASTATIN 40 MG TAB PO SCH (09:00)
[2021-09-10] MEDS: DAPTOmycin 475 MG in SYRINGE 0 ML IV SCH (09:18)
[2021-09-10] MEDS: MONTELUKAST SODIUM 10 MG TABLET PO SCH (09:19)
[2021-09-10] MEDS: MULTIVITAMIN TAB PO SCH (09:19)
[2021-09-10] MEDS: ASPIRIN 81 MG ECTAB PO SCH (09:19)
[2021-09-10] MEDS: PANTOprazole 40 MG TAB PO SCH ×2 (09:19→20:44)
[2021-09-10] MEDS: MEROPENEM 500 MG in SYRINGE 0 ML IV SCH ×2 (09:20→20:48)
[2021-09-10] MEDS: HEPARIN SOD 5,000 UNIT/0.5 ML VIAL SQ SCH ×2 (09:21→20:44)
--- NOTE | 2021-09-10 10:36 | Nephrology Consultation ---
Date of Consultation September 10, 2021 Assessment & Plan (1) SHAMEKA (acute kidney injury): Clinically consistent with ATN in setting of UTI. Oliguric. IV Normosol ordered to infusion at 125 ml/hr to encourage intravascular volume. Repeat metabolic profile this afternoon. Electrolytes acceptable. No emergent indication for dialysis. Medications appropriate for kidney dysfunction. (2) UTI (urinary tract infection): Meropenem dosed for kidney dysfunction. ID consult pending. US and prior CT reviewed. (3) Chronic kidney disease, stage III (moderate): Baseline CKD III A1. Creatinine at baseline 1-1.3 mg/dL. Imaging demonstrating bilateral cortical atrophy consistent with microvascular disease. History of Present Illness Reason for Consultation: SHAMEKA Requesting Physician: Prashant Zacarias DO Attending Physician: Prashant Zacarias DO History of Present Illness Mrs. Kezia Newman is a 76 year-old female with a history of malignant melanoma of the left thigh she had been maintained on treatment with Keytruda and chronic steroids. Medical history also notable for hypertension, h/o DVT, and frailty. She was admitted to [facility] earlier this month with sepsis attributed to pneumonia and UTI. she was treated with several different antibiotics throughout the hospitalization including Zosyn, Zyvox, and vancomycin. Kezia was discharged on levofloxacin. Urine studies consistent with possible fungal UTI treated with fluconazole and oral nystatin. Hospital course complicated by SHAMEKA, evidence of a subacute R parietal CVA, and heme + stool. Kezia was discharged to [facility]. She returned to [facility] yesterday with mental status changes and hypotension. Elevated procalcitonin and leukocytosis consistent with recurrent sepsis. Findings suggestive of a urinary source. Urine microscopy demonstrating trace glucose, 3+ blood, +nitrites, +LE, and 3+ protein. Urine microscopy notable for >30 RBC, >30 WBC, +4 bacteria, and yeast. Serum creatinine on September 05 was 0.9 mg/dL. Baseline creatinine 1-1.3 mg/dL. Serum creatinine yesterday 3.76 mg/dL. Creatinine this AM 5.39 mg/dL. Oliguric with cola colored urine in [place]. Urine protein in July 18+. No proteinuria in November 2019. Renal US documented a 10 cm R kidney and 9.2 cm L kidney. Increased echogenicity but no hydronephrosis. CT on August [address] demonstrated symmetric BL cortical atrophy. Kezia has not received Keytruda since prior to her last hospitalization. Kezia was resting comfortably in bed this AM. She was eating breakfast but appetite is poor. She is notably weak. She is a poor historian and very hard of hearing. She denies pain. She denies any urinary symptoms. She was emotional and tearful stating that she just wishes it would all go away. Allergies Allergy/AdvReac Type Severity Reaction Status Date / Time tramadol Allergy Mild NASUEA/CONF Verified 09/09/21 19:34 USION cephalexin [From Keflex] AdvReac Mild upset Verified 09/09/21 19:34 stomach Home Medications Medication Instructions Recorded Confirmed Type amlodipine 5 mg tablet (Norvasc) 5 mg PO QAM 12/05/18 09/09/21 History cholecalciferol (vitamin D3) 25 25 mcg PO QAM 12/11/19 09/09/21 History mcg (1,000 unit) tablet (Vitamin D3) metoprolol tartrate 25 mg tablet 12.5 mg PO BID 03/26/20 09/09/21 History diphenhydramine HCl 25 mg capsule 25 mg PO HS PRN cap 03/28/20 09/09/21 History (Benadryl) multivitamin 1 tab PO QAM 04/25/20 09/09/21 History cetirizine 10 mg tablet (Zyrtec) 10 mg PO QAM 01/14/21 09/09/21 History montelukast 10 mg tablet 10 mg PO DAILY 08/15/21 09/09/21 History nystatin 100,000 unit/mL oral 5 ml PO QID #140 ml 08/21/21 09/09/21 Rx suspension aspirin 81 mg tablet,delayed 81 mg PO QAM #30 tab 09/03/21 09/09/21 Rx release atorvastatin 40 mg tablet 40 mg PO QAM #30 tab 09/03/21 09/09/21 Rx apixaban 2.5 mg tablet (Eliquis) 2.5 mg PO BID #60 tab 09/05/21 09/09/21 Rx ferrous sulfate 325 mg (65 mg 325 mg PO QAM #30 tab 09/05/21 09/09/21 Rx iron) tablet,delayed release hydrocortisone 10 mg tablet 10 mg PO HS #30 tab 09/05/21 09/09/21 Rx (Cortef) hydrocortisone 10 mg tablet 20 mg PO QAM #60 tab 09/05/21 09/09/21 Rx (Cortef) pantoprazole 40 mg tablet,delayed 40 mg PO BID #60 tab 09/05/21 09/09/21 Rx release acetaminophen 325 mg tablet 650 mg PO Q6H PRN 09/09/21 09/09/21 History (Tylenol) levofloxacin 750 mg tablet 750 mg PO QPM 09/09/21 09/09/21 History prednisone 10 mg tablet See Rx Instructions .ROUTE .COMPLEX 09/09/21 09/09/21 History promethazine 25 mg tablet 25 mg PO Q6H PRN 09/09/21 09/09/21 History Patient History Medical History Cerebral infarct "Presumed old right frontal lobe cerebral infarct" - per Dec 2019 PET scan -- pt unaware/denies 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 No chemo or XRT GERD (gastroesophageal reflux disease) Hearing deficit Hiatal hernia Hx of pulmonary embolus 2019 s/p foot surgery, was on Eliquis for a few months. 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 Tinsley Surgical History H/O excision of mass History of ankle surgery RECONSTRUCTION OF LEFT ANKLE History of biopsy History of cataract surgery History of colonoscopy History of esophagogastroduodenoscopy (EGD) History of laryngoscopy Hx of bladder repair surgery Hx of foot surgery reconstructive right foot surgery (2019) Hx of hysterectomy Hx of total knee replacement RIGHT AND LEFT Hx of tubal ligation PONV (postoperative nausea and vomiting) Family History Mother Hearing loss Cancer Sister Hearing loss Cancer Other Breast cancer Family history non-contributory No family history of adverse response to anesthesia No family history of bleeding disorder Social History Smoking Status: Never smoker Second Hand Exposure: No; Hx Alcohol Use: No Hx Substance Use: No Preferred Language: Occitan Communication Ability: Impaired It Administrator Required: No Beliefs That Will Affect Care: None marital status: Current Living Situation: Residential Current Living Situation Comment: [facility] How many Children do You have: 2 Feels Safe at Home: Yes Safety Concerns: Feels Safe At This Time during the past year weight has: increased > 10 lbs Assistive Devices: Denture - Upper, Denture - Lower and Glasses Assistive Devices Comment: hearing aid 1 Review of Systems Review of Systems: All systems reviewed & are unremarkable except as noted in HPI & below Constitutional: + weakness; no fever and no chills Gastrointestinal: + change in bowel habits and + diarrhea/loose stools; no abdominal pain and no melena Genitourinary: + urinary frequency and + urinary incontinence; no dysuria, no difficulty urinating and no urinary hesitancy Physical Exam Constitutional: no acute distress, not malnourished and not edematous Eyes: + anicteric sclerae; no corneal abnormality ENMT: Ears: + hearing impairment Mouth: no oral mucosal abnormality and oral mucous membranes not dry Neck: normal visual inspection and trachea midline Respiratory: normal respiratory effort Auscultation: lungs clear to auscultation bilaterally Cardiovascular: Rate/Rhythm: regular rate Heart Sounds: normal S1, normal S2 and + murmur Extremities: + edema (non pitting and pedal edema in both legs, dependent edema) Musculoskeletal: Extremities: no cyanosis and no clubbing Skin: normal turgor; no lesions Neurologic: Motor/Sensory: no tremor and no asterixis Psychiatric: Orientation: alert and cooperative Genitourinary: [place] with small amount of cola colored urine in bag Results & Data ([facility]) Vital Signs (Past 12 Hours) Vital Signs Temp Pulse Pulse Resp BP BP Pulse Ox 09/10/21 07:26 36.4 C L 99 H 16 105/67 92 09/10/21 02:51 36.3 C L 73 18 116/72 90 09/09/21 23:24 36.6 C 77 20 100/61 91 09/09/21 23:00 78 Laboratory Results Laboratory Results - last 24 hr 09/09/21 09/09/21 09/09/21 17:08 17:08 17:08 WBC 16.06 H RBC 2.94 L Hgb 8.4 L Hct 26.4 L MCV 89.8 MCH 28.6 MCHC 31.8 L RDW Std Deviation 56.8 H RDW Coeff of Dominic 19.0 H Plt Count 466 H MPV 9.8 Immature Gran % (Auto) 0.7 Neut % (Auto) 80.0 Lymph % (Auto) 5.1 [place] % (Auto) 12.9 Eos % (Auto) 1.1 Baso % (Auto) 0.2 Neut # (Auto) 12.85 H Lymph # (Auto) 0.82 L [place] # (Auto) 2.07 H Eos # (Auto) 0.17 Baso # (Auto) 0.04 Immature Gran # (Auto) 0.11 H ESR PT 13.4 H INR 1.3 H APTT 32.2 H PTT Ratio 1.2 Sodium 140 Potassium 4.2 Chloride 108 H Carbon Dioxide 24 Anion Gap 8 BUN 47 H Creatinine 4.89 H* D Est Cr Clr Drug Dosing Not Reportable Est GFR ( Amer) 9.2 Est GFR (Non-Af Amer) 8.0 BUN/Creatinine Ratio 9.6 L Glucose 119 H POC Glucose Lactate Calcium 8.0 L Magnesium 1.8 Total Bilirubin 1.2 H Direct Bilirubin AST 131 H ALT 46 Alkaline Phosphatase 90 Troponin I High Sens 24.6 H Total Protein 5.5 L Albumin 2.3 L Globulin 3.2 Albumin/Globulin Ratio 0.7 L Procalcitonin Urine Color Urine Appearance Urine pH Ur Specific [place] Urine Protein Urine Glucose (UA) Urine Ketones Urine Blood Urine Nitrite Urine Bilirubin Urine Urobilinogen Ur Leukocyte Esterase Urine RBC Urine WBC Ur Epithelial Cells Urine Bacteria Urine Yeast Nasal Screen MRSA (PCR) Random Vancomycin SARS-CoV-2 (PCR) Influenza Type A (PCR) Influenza Type B (PCR) RSV (RT-PCR) 09/09/21 09/09/21 09/09/21 17:08 17:25 17:27 WBC RBC Hgb Hct MCV MCH MCHC RDW Std Deviation RDW Coeff of Dominic Plt Count MPV Immature Gran % (Auto) Neut % (Auto) Lymph % (Auto) [place] % (Auto) Eos % (Auto) Baso % (Auto) Neut # (Auto) Lymph # (Auto) [place] # (Auto) Eos # (Auto) Baso # (Auto) Immature Gran # (Auto) ESR PT INR APTT PTT Ratio Sodium Potassium Chloride Carbon Dioxide Anion Gap BUN Creatinine Est Cr Clr Drug Dosing Est GFR ( Amer) Est GFR (Non-Af Amer) BUN/Creatinine Ratio Glucose POC Glucose 121 H Lactate 0.6 Calcium Magnesium Total Bilirubin Direct Bilirubin AST ALT Alkaline Phosphatase Troponin I High Sens Total Protein Albumin Globulin Albumin/Globulin Ratio Procalcitonin 3.36 H Urine Color Urine Appearance Urine pH Ur Specific [place] Urine Protein Urine Glucose (UA) Urine Ketones Urine Blood Urine Nitrite Urine Bilirubin Urine Urobilinogen Ur Leukocyte Esterase Urine RBC Urine WBC Ur Epithelial Cells Urine Bacteria Urine Yeast Nasal Screen MRSA (PCR) Random Vancomycin SARS-CoV-2 (PCR) Influenza Type A (PCR) Influenza Type B (PCR) RSV (RT-PCR) 09/09/21 09/09/21 09/09/21 17:47 19:10 21:30 WBC RBC Hgb Hct MCV MCH MCHC RDW Std Deviation RDW Coeff of Dominic Plt Count MPV Immature Gran % (Auto) Neut % (Auto) Lymph % (Auto) [place] % (Auto) Eos % (Auto) Baso % (Auto) Neut # (Auto) Lymph # (Auto) [place] # (Auto) Eos # (Auto) Baso # (Auto) Immature Gran # (Auto) ESR PT INR APTT PTT Ratio Sodium Potassium Chloride Carbon Dioxide Anion Gap BUN Creatinine Est Cr Clr Drug Dosing Est GFR ( Amer) Est GFR (Non-Af Amer) BUN/Creatinine Ratio Glucose POC Glucose Lactate Calcium Magnesium Total Bilirubin Direct Bilirubin AST ALT Alkaline Phosphatase Troponin I High Sens Total Protein Albumin Globulin Albumin/Globulin Ratio Procalcitonin Urine Color Red Urine Appearance Turbid A Urine pH 5.5 Ur Specific [place] 1.020 Urine Protein 3+ H Urine Glucose (UA) Trace H Urine Ketones Trace H Urine Blood 3+ H Urine Nitrite Positive A Urine Bilirubin 2+ H Urine Urobilinogen Negative Ur Leukocyte Esterase Trace H Urine RBC >30 H Urine WBC >30 H Ur Epithelial Cells 0-5 Urine Bacteria 4+ H Urine Yeast Present A Nasal Screen MRSA (PCR) Negative Random Vancomycin SARS-CoV-2 (PCR) NEGATIVE Influenza Type A (PCR) Negative Influenza Type B (PCR) Negative RSV (RT-PCR) Negative 09/09/21 09/10/21 09/10/21 23:07 06:20 06:20 WBC 16.44 H RBC 3.01 L Hgb 8.8 L Hct 28.1 L MCV 93.4 MCH 29.2 MCHC 31.3 L RDW Std Deviation 60.3 H RDW Coeff of Dominic 18.8 H Plt Count 448 H MPV 9.7 Immature Gran % (Auto) Neut % (Auto) Lymph % (Auto) [place] % (Auto) Eos % (Auto) Baso % (Auto) Neut # (Auto) Lymph # (Auto) [place] # (Auto) Eos # (Auto) Baso # (Auto) Immature Gran # (Auto) ESR 83 H PT INR APTT PTT Ratio Sodium Potassium Chloride Carbon Dioxide Anion Gap BUN Creatinine Est Cr Clr Drug Dosing Est GFR ( Amer) Est GFR (Non-Af Amer) BUN/Creatinine Ratio Glucose POC Glucose 135 H Lactate Calcium Magnesium Total Bilirubin Direct Bilirubin AST ALT Alkaline Phosphatase Troponin I High Sens Total Protein Albumin Globulin Albumin/Globulin Ratio Procalcitonin Urine Color Urine Appearance Urine pH Ur Specific [place] Urine Protein Urine Glucose (UA) Urine Ketones Urine Blood Urine Nitrite Urine Bilirubin Urine Urobilinogen Ur Leukocyte Esterase Urine RBC Urine WBC Ur Epithelial Cells Urine Bacteria Urine Yeast Nasal Screen MRSA (PCR) Random Vancomycin SARS-CoV-2 (PCR) Influenza Type A (PCR) Influenza Type B (PCR) RSV (RT-PCR) 09/10/21 09/10/21 09/10/21 06:20 06:20 06:20 WBC RBC Hgb Hct MCV MCH MCHC RDW Std Deviation RDW Coeff of Dominic Plt Count MPV Immature Gran % (Auto) Neut % (Auto) Lymph % (Auto) [place] % (Auto) Eos % (Auto) Baso % (Auto) Neut # (Auto) Lymph # (Auto) [place] # (Auto) Eos # (Auto) Baso # (Auto) Immature Gran # (Auto) ESR PT INR APTT PTT Ratio Sodium 142 Potassium 4.5 Chloride 109 H Carbon Dioxide 24 Anion Gap 9 BUN 56 H Creatinine 5.39 H* D Est Cr Clr Drug Dosing 10.8 Est GFR ( Amer) 8.2 Est GFR (Non-Af Amer) 7.1 BUN/Creatinine Ratio 10.4 Glucose 116 H POC Glucose Lactate Calcium 8.2 L Magnesium 2.0 Total Bilirubin Pending Direct Bilirubin Pending AST Pending ALT Pending Alkaline Phosphatase Pending Troponin I High Sens Total Protein Pending Albumin Pending Globulin Albumin/Globulin Ratio Procalcitonin Urine Color Urine Appearance Urine pH Ur Specific [place] Urine Protein Urine Glucose (UA) Urine Ketones Urine Blood Urine Nitrite Urine Bilirubin Urine Urobilinogen Ur Leukocyte Esterase Urine RBC Urine WBC Ur Epithelial Cells Urine Bacteria Urine Yeast Nasal Screen MRSA (PCR) Random Vancomycin 5.2 L SARS-CoV-2 (PCR) Influenza Type A (PCR) Influenza Type B (PCR) RSV (RT-PCR) PG Care Time/CCT Total # of Minutes Spent Total Time Spent with Patient: Total time spent is greater than 50% in coordination of care (as documented) at patient's floor/unit and/or counseling patient: Coding Level of Care Code 94732 Inpt Consult Level 4 Diagnoses SHAMEKA (acute kidney injury) N17.9 UTI (urinary tract infection) N30.01 Hematuria presence: with hematuria Urinary tract infection type: acute cystitis Chronic kidney disease, stage III (moderate) N18.30 (1) UTI (urinary tract infection) Hematuria presence: with hematuria Urinary tract infection type: acute cystitis Qualified Code(s): N30.01 - Acute cystitis with hematuria
[2021-09-10] MEDS: NORMOSOL-R 1,000 ML IV SCH ×2 (10:45→20:43)
[2021-09-10] MEDS: methylPREDNISolone 40 MG in SYRINGE 0 ML IV SCH (10:45)
[2021-09-10 10:53] LABS: Albumin Level 2.5 gm/dl (3.4-5.0); Bilirubin Direct 0.4 mg/dl (0-0.2); Bilirubin,Total 0.9 mg/dl (0.2-1.0); Total Protein 5.9 gm/dl (6.0-8.3)
[2021-09-10 11:29] LABS: Creatinine Urine Random 95.3 mg/dl
--- NOTE | 2021-09-10 12:52 | XCELERA ---
[id number]
--- NOTE | 2021-09-10 13:29 | Electrocardiogram Report ---
Test Reason : Blood Pressure : / mmHG Vent. Rate : 092 BPM Atrial Rate : 092 BPM P-R Int : 136 ms QRS Dur : 094 ms QT Int : 370 ms P-R-T Axes : -12 -18 021 degrees QTc Int : 457 ms Sinus rhythm with Premature atrial complexes Septal infarct , age undetermined Abnormal ECG When compared with ECG of 01-SEP-2021 19:14, Premature atrial complexes are now Present Septal infarct is now Present Confirmed by Adama Osman ([id number]) on 09/10/2021 1:29:30 PM Referred By: [facility] Confirmed By:Adama Osman
--- NOTE | 2021-09-10 16:27 | Billing Data ---
Date of Service September 10, 2021 Coding Level of Care Code 92299 Subseq Hosp Care Lvl 3
--- NOTE | 2021-09-10 18:17 | Hospitalist Progress Note ---
Date of Service September 10, 2021 Assessment & Plan (1) Encephalitis: Plan: 76-year-old female with metastatic melanoma (on Keytruda and oral steroid taper), who presented with fever and altered mental status and admitted for metabolic encephalitis and acute kidney injury in the setting of recent discharge for presumed sepsis for fungal UTI, and subacute CVA on 09/05. Encephalitis -Patient presented with altered mental status and fever. x1 temperature spike in the ED. Otherwise afebrile -Patient received 1 dose of vancomycin in the ER. This was discontinued once patient's SHAMEKA became apparent. -suspect encephalitis secondary to Keytruda, as this is a known side effect. Patient was initially on steroids during last hospital stay, given improvement of patient's symptoms on IV steroids. -However, patient's oral steroid regimen was tapered down to chronic home dose. Suspect reduction of anti-inflammatory regimen led to resurgence of encephalitis, leading to altered mental status, which in turn, that the patient's drastically reduced p.o. intake. -Further suspect SHAMEKA was initially prerenal in origin before progressing to intrinsic kidney injury. * increased patient's steroid dose from 20 mg to 40 mg (IV methylprednisolone). * Continuing empiric antibiotic regimen: IV meropenem, daptomycin, and caspofungin. Held atorvastatin, given known interaction with daptomycin. * Reassess patient's mental status in the morning. Trend a.m. labs SHAMEKA/ATN -Suspect secondary to reduced p.o. intake, which in turn was secondary to patient's encephalitis (see above) Suspect encephalitis was, in turn, secondary to inadequate anti-inflammatory protection from patient's Keytruda medicine. * Continue IV fluids. Also resume patient's p.o. intake * Per nephrology consult, IV hydration switched to Normosol * Trend creatinine labs in the a.m. * Meropenem (renally dosed) coverage for presumed UTI Metastatic melanoma -Patient follows with hematology. On Keytruda and hydrocortisone at home. Code: Full code Dispo: Med-Surg with telemetry FEN/GI: Regular diet, IV Normosol DVT Prophylaxis: Heparin 5000 units every 12 hours SQ (2) SHAMEKA (acute kidney injury): (3) Sepsis: (4) Anemia: (5) Leukocytosis: (6) Adrenal suppression: (7) Anemia: (8) Cerebrovascular accident (CVA): (9) Fever of unknown origin: (10) Chronic kidney disease, stage III (moderate): (11) History of DVT (deep vein thrombosis): Admission and Anticipated Discharge Date Admission Date: September 09, 2021 Supervising Physician Co-Signing Physician Notes I personally examined the patient and verified all yousif points of history and exam, discussed case, and agree with decision making with Dr Arevalo no meaningful HPI or ROS obtainable vitals noted nad heent nc at mmm breathing unlabored no accessory muslces good effort skin no rashes no pallor or icterus septic picture - no clear source, continue empiric abx/antifungals for now but still strongly suspicious keytruda side effect. await consult inputs. continue steroids, continue supportive care, trend inflammatory markers. arf - likely ATN from severe prerenal from poor PO intake. gentle fluids, follow otherwise as above Khris Mast is a woman with a a history of metastatic melanoma (on Keytruda), DVT, and multiple admissions for sepsis secondary to fungal UTI (that responded to steroids-was sent home on a steroid taper), who presented to the emergency room with fever, and altered mental status. Patient had recently been discharged as recently as 09/05 on the aforementioned steroid taper, as well as an antibiotic regimen that included Levaquin and fluconazole. The ED she was found to be encephalitic; patient's procalcitonin and white blood cell count were also elevated. Patient received initial course of vancomycin, which was stopped, following the appearance of acute kidney injury on In the room today, patient appeared to still be altered, and was clearly not alert and oriented to location, time, or place. In talking to the patient's sister, patient had slowly become altered, and had drastically reduced her p.o. intake in the days leading up to her readmission. Sister denies any incidences of fever between the last discharge on this admission. Review of Systems Review of Systems: All systems reviewed & are unremarkable except as noted in HPI & below Physical Exam Physical Exam: General: Patient is in bed eating breakfast. Patient is oriented to self only. She is not oriented to date, place, or time. She is, however, in no acute distress. HEENT: Non-erythematous oropharynx; no lymphadenopathy; normal dentition. CV: Regular rate and rhythm. Normal S1 and S2. No murmurs gallops or rubs. Bilateral pitting pedal edema up to the knees. Pulmonary: Mild basilar crackles bilaterally No rhonchi, or wheezes. Abdomen: Soft, nondistended abdomen. No bruits heard on auscultation. No tenderness to deep palpation. No guarding or rebound. Results & Data Results & Data ([facility]) Vital Signs (Past 12 Hours) Vital Signs Temp Pulse Resp BP Pulse Ox 09/10/21 15:24 36.5 C 75 17 105/64 93 09/10/21 11:42 36.6 C 74 16 101/63 93 09/10/21 07:26 36.4 C L 99 H 16 105/67 92 Resident Activity Tracking Resident Involvement: Resident Care Provided Care Provided: Adult Hospital Medicine (1) Anemia Anemia type: unspecified type Qualified Code(s): D64.9 - Anemia, unspecified (2) Leukocytosis Leukocytosis type: unspecified Qualified Code(s): D72.829 - Elevated white blood cell count, unspecified (3) Sepsis Sepsis acute organ dysfunction status: unspecified Sepsis type: sepsis due to unspecified organism Qualified Code(s): A41.9 - Sepsis, unspecified organism
[2021-09-10] MEDS: CASPOFUNGIN 50 MG in SODIUM CHLORIDE 0.9% 250 ML IV SCH (22:40)
[2021-09-11] MEDS: NORMOSOL-R 1,000 ML IV SCH (06:11)
--- NOTE | 2021-09-11 07:16 | Hospitalist Progress Note ---
Date of Service September 11, 2021 Assessment & Plan (1) Encephalitis: Plan: 76-year-old female with metastatic melanoma (on Keytruda and oral steroid taper), who presented with fever and altered mental status and admitted for metabolic encephalitis and acute kidney injury in the setting of recent discharge for presumed sepsis for fungal UTI, and subacute CVA on 09/05. Encephalitis -Patient presented with altered mental status and fever. x1 temperature spike in the ED. Otherwise afebrile -Patient received 1 dose of vancomycin in the ER. This was discontinued once patient's SHAMEKA became apparent. -suspect encephalitis secondary to Keytruda, as this is a known side effect. Patient was initially on steroids during last hospital stay, given improvement of patient's symptoms on IV steroids. -However, patient's oral steroid regimen was tapered down to chronic home dose. Suspect reduction of anti-inflammatory regimen led to resurgence of encephalitis, leading to altered mental status, which in turn, that the patient's drastically reduced p.o. intake. -Further suspect SHAMEKA initially prerenal secondary to reduced p.o. intake that progressed to intrinsic kidney injury. * Methylprednisolone 40 mg IV * Continuing empiric antibiotic regimen: IV meropenem, daptomycin, and caspofungin. Otherwise, appreciate ID recs SHAMEKA/ATN -Suspect secondary to reduced p.o. intake, which in turn was secondary to patient's encephalitis (see above) Suspect encephalitis was, in turn, secondary to inadequate anti-inflammatory protection from patient's Keytruda medicine. -Preliminary urine culture positive for marsha, gram positive cocci -Urine output 40 mL overnight; 50 mL over day shift. * Continue IV Normosol, regular diet. Plan to reduce Normosol IVF rate to 50 mL/h overnight. * Continue to trend creatinine labs * Meropenem (renally dosed) coverage for presumed UTI Metastatic melanoma -Patient follows with hematology. On Keytruda and hydrocortisone at home. Code: Full code Dispo: Med-Surg with telemetry FEN/GI: Regular diet, IV Normosol DVT Prophylaxis: Heparin 5000 units every 12 hours SQ (2) SHAMEKA (acute kidney injury): (3) Sepsis: (4) Anemia: (5) Leukocytosis: (6) Adrenal suppression: (7) Cerebrovascular accident (CVA): (8) Fever of unknown origin: (9) Chronic kidney disease, stage III (moderate): (10) History of DVT (deep vein thrombosis): Admission and Anticipated Discharge Date Admission Date: September 09, 2021 Supervising Physician Co-Signing Physician Notes I personally examined the patient and verified all yousif points of history and exam, discussed case, and agree with decision making with Dr Arevalo no specific complaints other than not liking her bed. also is quite confused and believes she is in a trailer, when her roomate leaves she asks if she can have her bed vitals noted nad heent nc at mmm breathing unlabored no accessory muslces good effort skin no rashes no pallor or icterus septic picture - no clear source, continue empiric abx for now but still strongly suspicious keytruda side effect. mentation also now quite consistent with delirium. continue steroids, continue supportive care, trend inflammatory markers. await further input from consultants arf - likely ATN from severe prerenal from poor PO intake. appreciate nephro assistance otherwise as above Subjective No acute events overnight. Still hard of hearing. No acute complaints or concerns at this time. Review of Systems Review of Systems: All systems reviewed & are unremarkable except as noted in HPI & below Physical Exam Physical Exam: General: Patient is AAO x3 and in no acute distress. HEENT: Non-erythematous oropharynx; no lymphadenopathy; normal dentition. CV: Regular rate and rhythm. Normal S1 and S2. No murmurs gallops or rubs. Pedal edema to the knees bilateral. Unilateral forearm edema on the left. Pulmonary: Lungs are clear to auscultation bilaterally. No crackles, rhonchi, or wheezes. Abdomen: Soft, nondistended abdomen. No bruits heard on auscultation. No tenderness to deep palpation. No guarding or rebound. MSK: Full ROM at all joints. Equal 5/5 strength bilaterally. Neuro: No focal findings in CN IIXII. 2+ reflexes at all joints bilaterally. Normal [id number]-sj-peit test. Normal gait. No motor or sensory deficits. Psych: Alert and oriented x3. Congruent mood and affect. Results & Data Results & Data ([facility]) Vital Signs (Past 12 Hours) Vital Signs Temp Pulse Pulse Resp BP Pulse Ox 09/11/21 03:35 36.2 C L 76 18 113/62 93 09/10/21 23:00 36.4 C L 76 75 20 129/77 95 Resident Activity Tracking Resident Involvement: Resident Care Provided Care Provided: Adult Hospital Medicine (1) Anemia Anemia type: unspecified type Qualified Code(s): D64.9 - Anemia, unspecified (2) Leukocytosis Leukocytosis type: unspecified Qualified Code(s): D72.829 - Elevated white blood cell count, unspecified (3) Sepsis Sepsis acute organ dysfunction status: unspecified Sepsis type: sepsis due to unspecified organism Qualified Code(s): A41.9 - Sepsis, unspecified organism
[2021-09-11 07:30] LABS: Hematocrit (blood only) 25.3 % (37-47); Mean Corpuscular Hemoglobin 29.1 pg (25-34); Mean Corpuscular Hgb Conc 31.6 g/dL (32-36); Mean Platelet Volume 9.7 fL (7.4-10.4); Platelet Count 418 K/uL (130-400); RDW Coefficient of Variation 18.6 % (11.5-14.5); RDW Standard Deviation 59.7 fL (36.4-46.3); Red Blood Count 2.75 M/uL (4.2-5.4); White Blood Count 14.36 K/uL (4.8-10.8)
[2021-09-11 07:52] LABS: BUN Creatinine Ratio 11.3 (10-20); Calcium 7.9 mg/dl (8.5-10.1); Creatinine Clr Calc Pharmacy 10.1 ml/min; Est GFR (African American) 7.5 ml/min; Est GFR (Non-African American) 6.5 ml/min; Magnesium 2.1 mg/dl (1.7-2.4); Potassium 4.3 mmol/L (3.5-5.1)
[2021-09-11] MEDS: methylPREDNISolone 40 MG in SYRINGE 0 ML IV SCH (09:07)
[2021-09-11] MEDS: PANTOprazole 40 MG TAB PO SCH ×2 (09:07→20:05)
[2021-09-11] MEDS: ASPIRIN 81 MG ECTAB PO SCH (09:08)
[2021-09-11] MEDS: MONTELUKAST SODIUM 10 MG TABLET PO SCH (09:08)
[2021-09-11] MEDS: MULTIVITAMIN TAB PO SCH (09:08)
[2021-09-11] MEDS: HEPARIN SOD 5,000 UNIT/0.5 ML VIAL SQ SCH ×2 (09:08→20:05)
[2021-09-11] MEDS: MEROPENEM 500 MG in SYRINGE 0 ML IV SCH (09:17)
--- NOTE | 2021-09-11 09:24 | Nephrology Progress Note ---
Date of Service September 11, 2021 Assessment & Plan (1) SHAMEKA (acute kidney injury): Plan: Clinically consistent with ATN in setting of UTI. Oliguric. EAV improved. Stop IV Normosol infusion. Goal is to encourage even to slightly positive fluid balance. Electrolytes acceptable. No emergent indication for dialysis. Medications appropriate for kidney dysfunction. (2) UTI (urinary tract infection): Plan: Meropenem dosed for kidney dysfunction. Monitor CPK on daptomycin. US and prior CT reviewed. (3) Chronic kidney disease, stage III (moderate): Plan: Baseline CKD III A1. Creatinine at baseline 1-1.3 mg/dL. Imaging demonstrating bilateral cortical atrophy consistent with microvascular disease. Admission and Anticipated Discharge Date Admission Date: September 09, 2021 Subjective No acute events overnight. Difficulty sleeping. Feeling tired but otherwise well. No fevers or chills. Drinking adequate fluids but appetite not great. Denies abdominal pain or discomfort. No nausea. Review of Systems Review of Systems: All systems reviewed & are unremarkable except as noted in HPI & below Physical Exam Constitutional: no acute distress, not malnourished and not edematous Eyes: + anicteric sclerae; no corneal abnormality ENMT: Ears: + hearing impairment Mouth: no oral mucosal abnormality and oral mucous membranes not dry Neck: normal visual inspection and trachea midline Respiratory: normal respiratory effort Auscultation: lungs clear to auscultation bilaterally Cardiovascular: Rate/Rhythm: regular rate Heart Sounds: normal S1, normal S2 and + murmur Extremities: + edema (non pitting and pedal edema in both legs, dependent edema) Musculoskeletal: Extremities: no cyanosis and no clubbing Skin: normal turgor; no lesions Neurologic: Motor/Sensory: no tremor and no asterixis Psychiatric: Orientation: alert and cooperative Results & Data ([facility]) Vital Signs (Past 12 Hours) Vital Signs Temp Pulse Pulse Resp BP BP Pulse Ox 09/11/21 08:01 36.6 C 78 18 111/66 94 09/11/21 03:35 36.2 C L 76 18 113/62 93 09/10/21 23:00 36.4 C L 76 75 20 129/77 95 Laboratory Results Laboratory Results - last 24 hr 09/10/21 09/10/21 09/10/21 06:20 06:20 06:20 WBC RBC Hgb Hct MCV MCH MCHC RDW Std Deviation RDW Coeff of Dominic Plt Count MPV Sodium Cancelled Potassium Cancelled Chloride Cancelled Carbon Dioxide Cancelled Anion Gap Cancelled BUN Cancelled Creatinine Cancelled Est Cr Clr Drug Dosing Cancelled Est GFR ( Amer) Cancelled Est GFR (Non-Af Amer) Cancelled BUN/Creatinine Ratio Cancelled Glucose Cancelled Calcium Cancelled Phosphorus 6.5 H Magnesium Total Bilirubin 0.9 Direct Bilirubin 0.4 H AST 116 H ALT 54 H Alkaline Phosphatase 91 Total Creatine Kinase 44 Total Protein 5.9 L Albumin 2.5 L Cancelled Ur Random Creatinine Ur Random Sodium 09/10/21 09/11/21 09/11/21 10:59 06:22 06:22 WBC 14.36 H RBC 2.75 L Hgb 8.0 L Hct 25.3 L MCV 92.0 MCH 29.1 MCHC 31.6 L RDW Std Deviation 59.7 H RDW Coeff of Dominic 18.6 H Plt Count 418 H MPV 9.7 Sodium 138 Potassium 4.3 Chloride 106 Carbon Dioxide 21 Anion Gap 11 BUN 66 H Creatinine 5.82 H* D Est Cr Clr Drug Dosing 10.1 Est GFR ( Amer) 7.5 Est GFR (Non-Af Amer) 6.5 BUN/Creatinine Ratio 11.3 Glucose 107 H Calcium 7.9 L Phosphorus Magnesium 2.1 Total Bilirubin Direct Bilirubin AST ALT Alkaline Phosphatase Total Creatine Kinase Total Protein Albumin Ur Random Creatinine 95.3 Ur Random Sodium 56 PG Care Time/CCT Total # of Minutes Spent Total Time Spent with Patient: Total time spent is greater than 50% in coordination of care (as documented) at patient's floor/unit and/or counseling patient: Coding Level of Care Code 67632 Subseq Hosp Care Lvl 3 Diagnoses SHAMEKA (acute kidney injury) N17.9 UTI (urinary tract infection) N30.01 Hematuria presence: with hematuria Urinary tract infection type: acute cystitis Chronic kidney disease, stage III (moderate) N18.30 (1) UTI (urinary tract infection) Hematuria presence: with hematuria Urinary tract infection type: acute cystitis Qualified Code(s): N30.01 - Acute cystitis with hematuria
--- NOTE | 2021-09-11 18:20 | Billing Data ---
Date of Service September 11, 2021 Coding Level of Care Code 48298 Subseq Hosp Care Lvl 3
[2021-09-11] MEDS: CASPOFUNGIN 50 MG in SODIUM CHLORIDE 0.9% 250 ML IV SCH (20:05)
[2021-09-12 06:22] LABS: Hematocrit (blood only) 23.4 % (37-47); Hemoglobin 7.5 g/dL (12.0-16.0); Mean Corpuscular Hemoglobin 28.6 pg (25-34); Mean Corpuscular Hgb Conc 32.1 g/dL (32-36); Mean Corpuscular Volume 89.3 fL (80-100); Mean Platelet Volume 9.6 fL (7.4-10.4); Platelet Count 413 K/uL (130-400); RDW Coefficient of Variation 18.6 % (11.5-14.5); RDW Standard Deviation 57.2 fL (36.4-46.3); Red Blood Count 2.62 M/uL (4.2-5.4)
[2021-09-12 06:57] LABS: BUN Creatinine Ratio 11.5 (10-20); C Reactive Protein 12.99 mg/dl (0-0.5); Calcium 7.7 mg/dl (8.5-10.1); Creatinine Clr Calc Pharmacy 8.8 ml/min; Est GFR (African American) 6.3 ml/min; Est GFR (Non-African American) 5.4 ml/min; Magnesium 2.1 mg/dl (1.7-2.4); Potassium 4.1 mmol/L (3.5-5.1)
[2021-09-12] MEDS ORDERED: MEROPENEM 500 MG in SYRINGE 0 ML IV SCH (09:00)
[2021-09-12] MEDS: HEPARIN SOD 5,000 UNIT/0.5 ML VIAL SQ SCH ×2 (09:01→19:28)
[2021-09-12] MEDS: MULTIVITAMIN TAB PO SCH (09:01)
[2021-09-12] MEDS: methylPREDNISolone 40 MG in SYRINGE 0 ML IV SCH (09:01)
[2021-09-12] MEDS: ASPIRIN 81 MG ECTAB PO SCH (09:01)
[2021-09-12] MEDS: MONTELUKAST SODIUM 10 MG TABLET PO SCH (09:01)
[2021-09-12] MEDS: PANTOprazole 40 MG TAB PO SCH ×2 (09:01→19:28)
[2021-09-12] MEDS: DAPTOmycin 475 MG in SYRINGE 0 ML IV SCH (09:01)
--- NOTE | 2021-09-12 09:04 | Hospitalist Progress Note ---
Date of Service September 12, 2021 Assessment & Plan (1) Encephalitis: Plan: 76-year-old female with metastatic melanoma (on Keytruda and oral steroid taper), who presented with fever and altered mental status and admitted for metabolic encephalitis and acute kidney injury in the setting of recent discharge for presumed sepsis for fungal UTI, and subacute CVA on 09/05. SHAMEKA/ATN -Suspect secondary to reduced p.o. intake, which in turn was secondary to patient's encephalitis (see above) Suspect encephalitis was, in turn, secondary to inadequate anti-inflammatory protection from patient's Keytruda medicine. -Preliminary urine culture positive for marsha, gram positive cocci -Urine output 40 mL overnight; 50 mL over day shift. * IV Normosol stopped yesterday. Still on regular diet. * Continue to trend creatinine labs: 6.72 today. Encephalitis/delirium -Patient presented with altered mental status and fever. x1 temperature spike in the ED. Otherwise afebrile -Patient received 1 dose of vancomycin in the ER. This was discontinued once patient's SHAMEKA became apparent. -suspect encephalitis secondary to Keytruda, as this is a known side effect. Patient was initially on steroids during last hospital stay, given improvement of patient's symptoms on IV steroids. -However, patient's oral steroid regimen was tapered down to chronic home dose. Suspect reduction of anti-inflammatory regimen led to resurgence of encephalitis, leading to altered mental status, which in turn, that the patient's drastically reduced p.o. intake. -Further suspect SHAMEKA initially prerenal secondary to reduced p.o. intake that progressed to intrinsic kidney injury. * Continue methylprednisolone 40 mg IV * Adjusted empiric antibiotic regimen, per ID recommendations:stopped IV meropenem, and caspofungin. Continuing daptomycin. Metastatic melanoma -Patient follows with hematology. On Keytruda and hydrocortisone at home. -Dr. Herrera of oncology, who was consulted, weighed in: Doubtful Keytruda was responsible for encephalitis, as she received her last dose longer for her symptoms started. Suspects hypophysitis * Ordered a.m. endocrine labs: TSH, cortisol, FSH, LH, ACTH and hGH. Follow-up in the morning Code: Full code Dispo: Med-Surg with telemetry FEN/GI: Regular diet DVT Prophylaxis: Heparin 5000 units every 12 hours SQ (2) SHAMEKA (acute kidney injury): (3) Sepsis: (4) Anemia: (5) Leukocytosis: (6) Adrenal suppression: (7) Cerebrovascular accident (CVA): (8) Fever of unknown origin: (9) Chronic kidney disease, stage III (moderate): (10) History of DVT (deep vein thrombosis): Admission and Anticipated Discharge Date Admission Date: September 09, 2021 Supervising Physician Co-Signing Physician Notes I personally examined the patient and verified all yousif points of history and exam, discussed case, and agree with decision making with Dr Arevalo more conversational - still quite confused, but can relate that she's in kidney failure, although intersperses it with hx of her melanoma, etc. no acute complaints vitals noted nad heent nc at mmm breathing unlabored no accessory muscles good effort skin no rashes no pallor or icterus septic picture - no clear source, probalby from hormonal insufficiencies from hypophysitis possible VRE UTI - hard to distinguish symptoms or not, and while septic picture likely all pituitary, hormonal and not septic - since can't really definitively rule out - obligated to treat arf - likely ATN from severe prerenal from poor PO intake. following closely, appreciate nephro input otherwise as above Physical Exam Physical Exam: General: Patient is AAO x3 and in no acute distress. HEENT: Non-erythematous oropharynx; no lymphadenopathy; normal dentition. CV: Regular rate and rhythm. Normal S1 and S2. No murmurs gallops or rubs. Pedal edema to the knees bilateral. Unilateral forearm edema on the left. Pulmonary: Lungs are clear to auscultation bilaterally. No crackles, rhonchi, or wheezes. Abdomen: Soft, nondistended abdomen. No bruits heard on auscultation. No tenderness to deep palpation. No guarding or rebound. MSK: Full ROM at all joints. Equal 5/5 strength bilaterally. Neuro: No focal findings in CN IIXII. 2+ reflexes at all joints bilaterally. Normal [id number] test. Normal gait. No motor or sensory deficits. Psych: Alert and oriented x3. Congruent mood and affect. Results & Data Results & Data ([facility]) Vital Signs (Past 12 Hours) Vital Signs Temp Pulse Pulse Resp BP Pulse Ox 09/12/21 08:25 36.4 C L 75 20 147/68 H 90 09/12/21 03:57 36.6 C 78 18 121/77 91 09/11/21 23:17 36.5 C 81 20 126/71 92 09/11/21 22:50 77 09/11/21 21:04 92 Resident Activity Tracking Resident Involvement: Resident Care Provided Care Provided: Adult Hospital Medicine (1) Anemia Anemia type: unspecified type Qualified Code(s): D64.9 - Anemia, unspecified (2) Leukocytosis Leukocytosis type: unspecified Qualified Code(s): D72.829 - Elevated white blood cell count, unspecified (3) Sepsis Sepsis acute organ dysfunction status: unspecified Sepsis type: sepsis due to unspecified organism Qualified Code(s): A41.9 - Sepsis, unspecified organism
--- NOTE | 2021-09-12 10:01 | Consultation Report ---
DATE OF SERVICE: 09/12/2021. REASON FOR CONSULTATION: Recurrent sepsis/potential side effect from Keytruda. HISTORY OF PRESENT ILLNESS: Ms. Newman is a 76-year-old female with history of metastatic melanoma for which she is status post wide excision and sentinel lymph node biopsy on 02/16/2020. Patient was initially on pembrolizumab, which was discontinued around March 2021 due to disease progression. She subsequently received 4 cycles of nivolumab/ipilimumab, completed in June 2021 and was started maintenance nivolumab for which she is status post one cycle on 07/28/2021. She presented to the emergency room with fever,altered mental status, leukocytosis and concern for sepsis. Urine culture revealed Enterococcus faecium, VRE, as well as Cherry albicans. Blood culture was negative. She was placed on broad-spectrum antibiotics and antifungal medications. She was also started on methylprednisolone 40 mg IV daily. Of note, the patient had recently been discharged from hospital after she was treated for pneumonia/fungal UTI with persistent fever, thought to be due to immunotherapy for which she was placed on high-dose steroids and subsequently transitioned to hydrocortisone 20 mg in the morning and 10 mg at night because of concern for immunotherapy related hypophysitis. HOME MEDICATIONS: 1. Amlodipine. 2. Vitamin D3. 3. Metoprolol. 4. Cetirizine. 5. Montelukast. 6. Nystatin suspension. 7. Aspirin. 8. Atorvastatin. 9. Apixaban. 10. Ferrous sulfate. 11. Hydrocortisone. 12. Pantoprazole. 13. Tylenol. 14. Levofloxacin. ALLERGIES: TRAMADOL and CEPHALEXIN. PAST MEDICAL HISTORY: 1. Malignant metastatic melanoma. 2. GERD. 3. Chronic kidney disease stage III. 4. History of DVT. 5. Seasonal allergies. PAST SURGICAL HISTORY: 1. Total knee replacement. 2. Cataract surgery. 3. Bladder repair surgery. 4. Foot surgery. REVIEW OF SYSTEMS: CONSTITUTIONAL: Denies weight loss, night sweats or fever. EYES: Negative for change in her vision. ENT: Negative for epistaxis, nasal discharge, sore throat. Positive for hearing loss. CARDIOVASCULAR: Negative for chest pain, palpitations, dizziness, or diaphoresis. RESPIRATORY: Negative for shortness of breath, hemoptysis or cough. GASTROINTESTINAL: Negative for diarrhea, hematemesis, melena, nausea, vomiting or dyspepsia. GENITOURINARY: Negative for urinary frequency, hematuria or dysuria. NEUROLOGIC: Negative for weakness, seizures, headaches or dizziness. LYMPHATICS AND HEMATOLOGIC: Negative for abnormal bleeding or new adenopathy. PHYSICAL EXAMINATION: VITAL SIGNS: Blood pressure 112/77, heart rate 78, respiratory rate 18, temperature 36.6, oxygen saturation 91% on 1.5 liter nasal cannula. CONSTITUTIONAL: Yue 76-year-old in no acute distress. EYES: Are without conjunctival erythema or icterus. ENT: Negative for masses. RESPIRATORY: Lung sounds were generally clear bilaterally CARDIOVASCULAR: Heart shows a regular rate and rhythm without significant murmur, gallops or rubs. GASTROINTESTINAL: No palpable hepatosplenomegaly. ABDOMEN: Soft with normal bowel sounds. LYMPHATIC SYSTEM: No palpable peripheral lymphadenopathy. MUSCULOSKELETAL: Was negative for abnormalities. EXTREMITIES: Negative for edema. LABORATORY STUDIES: White cell count of 13,000, hemoglobin 7.5, hematocrit 23, MCV 89, platelet count 413. Sodium 137, potassium 4.1, chloride 105, bicarbonate 21, anion gap 11, BUN 77, creatinine 6.72. IMAGING STUDIES: Renal ultrasound on 09/09/2021. IMPRESSION: 1. No hydronephrosis. 2. Echogenic kidneys suggestive of medical renal disease. CT head on 09/09/2021. IMPRESSION: 1. No acute intracerebral pathology. 2. 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 ASSESSMENT AND PLAN: 1. Metastatic melanoma, on immunotherapy. 2. Urinary tract infection sepsis. 3. Anemia. 4. Acute kidney injury on chronic kidney disease. 5. Altered mental status A yue 76-year-old female with history of metastatic melanoma who is currently on nivolumab and was admitted with fever as well as altered mental status. During prior admission, patient was discharged home on hydrocortisone due to concern for hypophysitis. Oncology was consulted for possible Immunotherapy related encephalitis. Immunotherapy mediated encephalitis is usually a diagnosis of exclusion and a rare side effect of immunotherapy especially seen in patients on ipilimumab/nivolumab combination, which she had received in the past. Given the clinical picture of urinary tract infection, leukocytosis, I suspect that her altered mental status is most likely due to to infection and not immunotherapy related.Would however recommend high dose steroids with methylprednisolone 1-2 mg/kg per day with gradual taper to see if symptoms improve. Regarding concern for hypophysitis, would recommend obtaining full workup including testing for TSH, FSH, LH, growth hormone, ACTH and cortisol. If all these are low, this would support hypophysitis and she would benefit from continuing with hydrocortisone replacement. When the patient's renal function is improved, we would recommend obtaining a brain MRI to assess for T2/FLAIR changes typical of what is seen in autoimmune encephalitis or limbic encephalitis. PLAN: 1. Agree with treating underlying infection. 2. Low suspicion for immunotherapy related encephalitis at this time but can increase dose of methylprednisolone to 1mg/kg/day 3. Recommend workup for hypophysitis as mentioned above. 4. Consider obtaining a brain MRI when renal function improves to evaluate for T2/FLAIR changes suspicious for autoimmune encephalitis. 5. Consider LP if symptoms persist. Thank you for this consult. Oncology will continue following in the patient while in the hospital. Please feel free to call if you have any further questions. Job ID: [id number]
--- NOTE | 2021-09-12 10:42 | Nephrology Progress Note ---
Date of Service September 12, 2021 Assessment & Plan (1) SHAMEKA (acute kidney injury): Plan: Clinically consistent with ATN in setting of UTI. Less likely to have developed AIN secondary to Keytruda given timing but this is also a consideration. Prednisone is being provided for suspected encephalitis. Urine microscopy will be repeated today. Remains relatively oliguric but volume status reasonable. IV boluses may be considered as needed to encourage urine output but I would avoid a significantly positive fluid balance. Goal is to encourage even to slightly positive fluid balance. Electrolytes acceptable. No emergent indication for dialysis. Possible future indications discussed with patient. Medications appropriate for kidney dysfunction. (2) UTI (urinary tract infection): Plan: Monitor CPK on daptomycin. Urine +VRE and marsha. ID consultation reviewed. (3) Chronic kidney disease, stage III (moderate): Plan: Baseline CKD III A1. Creatinine at baseline 1-1.3 mg/dL. Imaging demonstrating bilateral cortical atrophy consistent with microvascular disease. Admission and Anticipated Discharge Date Admission Date: September 09, 2021 Subjective No acute events overnight. Slightly confused this AM but generally answering written questions appropriately. Kezia told me that she does not know much about dialysis but she does not think it is something that she would want. "I have cancer already. That's enough." She denies pain. Appetite has been fair. No fevers or chills. Review of Systems Review of Systems: All systems reviewed & are unremarkable except as noted in HPI & below Physical Exam Constitutional: no acute distress, not malnourished and not edematous Eyes: + anicteric sclerae; no corneal abnormality ENMT: Ears: + hearing impairment Mouth: no oral mucosal abnormality and oral mucous membranes not dry Neck: normal visual inspection and trachea midline Respiratory: normal respiratory effort Auscultation: lungs clear to auscultation bilaterally Cardiovascular: Rate/Rhythm: regular rate Heart Sounds: normal S1, normal S2 and + murmur Extremities: + edema (non pitting and pedal edema in both legs, dependent edema) Musculoskeletal: Extremities: no cyanosis and no clubbing Skin: normal turgor; no lesions Neurologic: Motor/Sensory: no tremor and no asterixis Psychiatric: Orientation: alert and cooperative Results & Data ([facility]) Vital Signs (Past 12 Hours) Vital Signs Temp Pulse Pulse Resp BP Pulse Ox 09/12/21 08:25 36.4 C L 75 20 147/68 H 90 09/12/21 03:57 36.6 C 78 18 121/77 91 09/11/21 23:17 36.5 C 81 20 126/71 92 09/11/21 22:50 77 Laboratory Results Laboratory Results - last 24 hr 09/12/21 09/12/21 09/12/21 05:46 05:46 05:46 WBC 13.40 H RBC 2.62 L Hgb 7.5 L Hct 23.4 L MCV 89.3 MCH 28.6 MCHC 32.1 RDW Std Deviation 57.2 H RDW Coeff of Dominic 18.6 H Plt Count 413 H MPV 9.6 Sodium 137 Potassium 4.1 Chloride 105 Carbon Dioxide 21 Anion Gap 11 BUN 77 H Creatinine 6.72 H* D Est Cr Clr Drug Dosing 8.8 Est GFR ( Amer) 6.3 Est GFR (Non-Af Amer) 5.4 BUN/Creatinine Ratio 11.5 Glucose 104 H Calcium 7.7 L Magnesium 2.1 C-Reactive Protein 12.99 H Procalcitonin 2.40 H PG Care Time/CCT Total # of Minutes Spent Total Time Spent with Patient: Total time spent is greater than 50% in coordination of care (as documented) at patient's floor/unit and/or counseling patient: Coding Level of Care Code 64974 Subseq Hosp Care Lvl 3 Diagnoses SHAMEKA (acute kidney injury) N17.9 UTI (urinary tract infection) N30.01 Hematuria presence: with hematuria Urinary tract infection type: acute cystitis Chronic kidney disease, stage III (moderate) N18.30 (1) UTI (urinary tract infection) Hematuria presence: with hematuria Urinary tract infection type: acute cystitis Qualified Code(s): N30.01 - Acute cystitis with hematuria
--- NOTE | 2021-09-12 12:28 | Consultation Report ---
ADDENDUM REVIEW OF SYSTEMS: CONSTITUTIONAL: Denies weight loss, night sweats or fever. EYES: Negative for change in her vision. ENT: Negative for epistaxis, nasal discharge, sore throat. Positive for hearing loss. CARDIOVASCULAR: Negative for chest pain, palpitations, dizziness, or diaphoresis. RESPIRATORY: Negative for shortness of breath, hemoptysis or cough. GASTROINTESTINAL: Negative for diarrhea, hematemesis, melena, nausea, vomiting or dyspepsia. GENITOURINARY: Negative for urinary frequency, hematuria or dysuria. NEUROLOGIC: Negative for weakness, seizures, headaches or dizziness. LYMPHATICS AND HEMATOLOGIC: Negative for abnormal bleeding or new adenopathy. PHYSICAL EXAMINATION: VITAL SIGNS: Blood pressure 112/77, heart rate 78, respiratory rate 18, temperature 36.6, oxygen sat uration 91% on 1.5 liter nasal cannula. CONSTITUTIONAL: Yue 76-year-old in no acute distress. EYES: Are without conjunctival erythema or icterus. ENT: Negative for masses. RESPIRATORY: Lung sounds were generally clear bilaterally CARDIOVASCULAR: Heart shows a regular rate and rhythm without significant murmur, gallops or rubs. GASTROINTESTINAL: No palpable hepatosplenomegaly. ABDOMEN: Soft with normal bowel sounds. LYMPHATIC SYSTEM: No palpable peripheral lymphadenopathy. MUSCULOSKELETAL: Was negative for abnormalities. EXTREMITIES: Negative for edema. LABORATORY STUDIES: White cell count of 13,000, hemoglobin 7.5, hematocrit 23, MCV 89, platelet count 413. Sodium 137, potassium 4.1, chloride 105, bicarbonate 21, anion gap 11, BUN 77, creatinine 6.72 . IMAGING STUDIES: Renal ultrasound on 09/09/2021. IMPRESSION: 1. No hydronephrosis. 2. Echogenic kidneys suggestive of medical renal disease. CT head on 09/09/2021. IMPRESSION: 1. No acute intracerebral pathology. 2. 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 ASSESSMENT AND PLAN: 1. Metastatic melanoma, on immunotherapy. 2. Urinary tract infection sepsis. 3. Anemia. 4. Acute kidney injury on chronic kidney disease. A yue 76-year-old female with history of metastatic melanoma who is currently on nivolumab and w as admitted with fever as well as altered mental status. During prior admission, patient was dischar ge home on hydrocortisone due to concern for hypophysitis. I do not think her altered mental status is due to nivolumab, since she most recently received her last dose on 07/28/2021. Immunotherapy re lated encephalitis is usually a diagnosis of exclusion and a rare side effect of immunotherapy, espec ially ipilimumab/nivolumab combination, which she had received in the past. We would recommend matt p for other causes of altered mental status and if this is negative, then would assume this is relate d to immunotherapy. Given the picture of urinary tract infection, leukocytosis, I suspect that her a ltered mental status is most likely due to this and not immunotherapy related. If symptoms persist a fter treating underlying infection, then we would assume this is related to immunotherapy and we geraldine mmend high dose steroids with prednisone 1 mg per kg per day or methylprednisolone 1 mg per kg per da y with gradual taper. Regarding concern for hypophysitis, would recommend obtaining full workup incl uding testing for TSH, FSH, LH, growth hormone, ACTH and cortisol. If all these are low, this would support hypophysitis and she would benefit from continuing with hydrocortisone replacement. When the patient's renal function is improved, we would recommend obtaining a brain MRI to assess for T2/FLAI R changes typical of what is seen in autoimmune encephalitis or limbic encephalitis. PLAN: 1. Agree with treating underlying infection. 2. Low suspicion for immunotherapy related encephalitis at this time. 3. Recommend workup for hypophysitis as mentioned above. 4. Consider obtaining a brain MRI when renal function is improved to evaluate for T2/FLAIR changes s uspicious for autoimmune encephalitis. 5. If altered mental status persists despite treating underlying infection, she would benefit from st arting methylprednisolone 1 gram IV daily for 3-5 days or prednisone 1 mg per kg per day with gradual taper. 6. Consider LP if symptoms persist. Thank you for this consult. Oncology will continue following in the patient while in the hospital. Please feel free to call if you have any further questions. Job ID: [id number]
[2021-09-12] MEDS ORDERED: DAPTOmycin 175 MG in SYRINGE 0 ML IV ONE (14:15)
--- NOTE | 2021-09-12 19:10 | Billing Data ---
Date of Service September 12, 2021 Coding Level of Care Code 30542 Subseq Hosp Care Lvl 3
--- NOTE | 2021-09-13 07:12 | Hospitalist Progress Note ---
Date of Service September 13, 2021 Assessment & Plan (1) Encephalitis: Plan: 76-year-old female with metastatic melanoma (on Keytruda and oral steroid taper), who presented with fever and altered mental status and admitted for metabolic encephalitis and acute kidney injury in the setting of recent discharge for presumed sepsis for fungal UTI, and subacute CVA on 09/05. SHAMEKA/ATN -Suspect secondary to reduced p.o. intake, which in turn was secondary to patient's encephalitis (see above) Suspect encephalitis was, in turn, secondary to inadequate anti-inflammatory protection from patient's Keytruda medicine. -Urine culture + for VRE faecium, Cherry but asymptomatic. -Sensitive to Daptomycin. Continue Daptomycin. -Nephrology consulted. -No acute indication for hemodialysis today. -Discussed vascular access placement and hemodialysis with patient. -Urine output 120 mL overnight; 150 mL over day shift. * IV Normosol stopped. Still on regular diet. * Continue to trend creatinine labs: 7.61 today. * K+ 4.3, WNL. Encephalitis/delirium -Patient presented with altered mental status and fever. x1 temperature spike in the ED. Otherwise afebrile -Patient received 1 dose of vancomycin in the ER. This was discontinued once patient's SHAMEKA became apparent. -suspect encephalitis secondary to Keytruda, as this is a known side effect. Patient was initially on steroids during last hospital stay, given improvement of patient's symptoms on IV steroids. -However, patient's oral steroid regimen was tapered down to chronic home dose. Suspect reduction of anti-inflammatory regimen led to resurgence of encephaliti s, leading to altered mental status, which in turn, that the patient's drastically reduced p.o. intake. -Further suspect SHAMEKA initially prerenal secondary to reduced p.o. intake that progressed to intrinsic kidney injury. * Continue methylprednisolone 100 mg IV * Adjusted empiric antibiotic regimen, per ID recommendations:stopped IV meropenem, and caspofungin. Continuing daptomycin. Metastatic melanoma -Patient follows with hematology. On Keytruda and hydrocortisone at home. -Dr. Herrera of oncology, who was consulted, weighed in: Doubtful Keytruda was responsible for encephalitis, as she received her last dose longer for her symptoms started. Suspects hypophysitis * AM coritsol low at 2.29, FSH and LH low for postmenopausal, TSH WNL. Growth hormone and ACTH pending. Code: Full code Dispo: Med-Surg with telemetry FEN/GI: Regular diet DVT Prophylaxis: Heparin 5000 units every 12 hours SQ (2) SHAMEKA (acute kidney injury): (3) Sepsis: (4) Anemia: (5) Leukocytosis: (6) Adrenal suppression: (7) Cerebrovascular accident (CVA): (8) Fever of unknown origin: (9) Chronic kidney disease, stage III (moderate): (10) History of DVT (deep vein thrombosis): Admission and Anticipated Discharge Date Admission Date: September 09, 2021 Supervising Physician Co-Signing Physician Notes I personally examined the patient and verified all yousif points of history and exam, discussed case, and agree with decision making with Dr Arevalo still easily confused. no sob. no other acute complaints vitals noted nad heent nc at mmm breathing unlabored no accessory muscles good effort skin no rashes no pallor or icterus septic picture - no clear source, probably from hormonal insufficiencies from hypophysitis - continue increased steriods, await other labs possible VRE UTI - hard to distinguish symptoms or not, and while septic picture likely all pituitary, hormonal and not septic - since can't really definitively rule out - obligated to treat - on dapto arf - likely ATN from severe prerenal from poor PO intake. following closely, appreciate nephro input, thus far no acute/urgent HD indications otherwise as above Subjective Patient seen at the bedside today. Doing well this morning and able to eat her breakfast without issue. Denies shortness of breath, chest pain, fevers, chills. Patient says she is hard of hearing and may need her hearing aids again. Review of Systems Constitutional: as per Subjective / HPI Physical Exam Constitutional: WD/WN, vitals as above Eyes: PERRL, conjunctivae normal, anicteric sclerae Respiratory: normal respiratory effort, lungs clear to auscultation Cardiovascular: Rate/Rhythm: regular rate and regular rhythm Heart Sounds: normal S1 and normal S2 Extremities: + edema (B/l lower extremities 2+, R arm swelling. ) Gastrointestinal (Abdomen): normal bowel sounds, soft, nontender, no hepatosplenomegaly Psychiatric: A+Ox3, euthymic affect Results & Data Results & Data ([facility]) Vital Signs (Past 12 Hours) Vital Signs Temp Pulse Pulse Resp BP BP Pulse Ox 09/13/21 03:35 36.5 C 78 22 164/75 H 94 09/12/21 22:51 36.6 C 76 18 145/68 H 93 09/12/21 22:17 73 09/12/21 19:47 36.4 C L 83 20 157/84 H 95 Resident Activity Tracking Resident Involvement: Resident Care Provided Care Provided: Adult [facility] Medicine (1) Anemia Anemia type: unspecified type Qualified Code(s): D64.9 - Anemia, unspecified (2) Leukocytosis Leukocytosis type: unspecified Qualified Code(s): D72.829 - Elevated white blood cell count, unspecified (3) Sepsis Sepsis acute organ dysfunction status: unspecified Sepsis type: sepsis due to unspecified organism Qualified Code(s): A41.9 - Sepsis, unspecified organism
[2021-09-13 08:09] LABS: BUN Creatinine Ratio 11.6 (10-20); Calcium 8.1 mg/dl (8.5-10.1); Creatinine Clr Calc Pharmacy 7.8 ml/min; Est GFR (African American) 5.4 ml/min; Est GFR (Non-African American) 4.7 ml/min; Hematocrit (blood only) 24.9 % (37-47); Mean Corpuscular Hemoglobin 28.4 pg (25-34); Mean Corpuscular Hgb Conc 32.1 g/dL (32-36); Mean Corpuscular Volume 88.3 fL (80-100); Platelet Count 443 K/uL (130-400); Potassium 4.3 mmol/L (3.5-5.1); Red Blood Count 2.82 M/uL (4.2-5.4); White Blood Count 14.44 K/uL (4.8-10.8)
[2021-09-13] MEDS: HEPARIN SOD 5,000 UNIT/0.5 ML VIAL SQ SCH ×2 (08:14→19:40)
[2021-09-13] MEDS: MULTIVITAMIN TAB PO SCH (08:14)
[2021-09-13] MEDS: MONTELUKAST SODIUM 10 MG TABLET PO SCH (08:15)
[2021-09-13] MEDS: ASPIRIN 81 MG ECTAB PO SCH (08:15)
[2021-09-13] MEDS: PANTOprazole 40 MG TAB PO SCH ×2 (08:15→19:43)
[2021-09-13] MEDS: methylPREDNISolone 100 MG in SYRINGE 0 ML IV SCH (08:15)
[2021-09-13 08:19] LABS: Cortisol AM 2.29 mcg/dl (6.2-22.6)
--- NOTE | 2021-09-13 08:26 | Nephrology Progress Note ---
Date of Service September 13, 2021 Assessment & Plan (1) SHAMEKA (acute kidney injury): Plan: * Patient had been on nivolumab/ipilimumab prior to admission. Both agents can be associated with SHAMEKA/AIN. Cr is rising despite IV Solumedrol * Urine sediment suggestive of UTI or AIN * Agree w/ Solumedrol and antibiotic therapy * Recommend changing out Rollins catheter due to yeast * Volume status and electrolyte balance acceptable. No acute indication for HD today * Discussed vascular access placement and HD in detail w/ patient today. Ms. Newman is uncertain whether to proceed w/ dialysis due to her malignancy * Monitor PRP (2) Melanoma: Plan: * Recommend discussion w/ Oncology to define prognosis w/ ongoing therapy and goals of care (3) UTI (urinary tract infection): Plan: * Monitor CPK while on daptomycin * Urine +VRE and marsha (4) Chronic kidney disease, stage III (moderate): Plan: * CKD stage G3a/A3 (moderate impairment). Baseline Cr 1-1.3 mg/dL w/ EGFR 58cc/min. UPCR 0.5. Renal US revealed bilateral cortical atrophy c/w microvascular disease Admission and Anticipated Discharge Date Admission Date: September 09, 2021 Subjective Ms. Newman was evaluated in her hospital room this morning. She was A&O x3. She was angry that she has metastatic cancer and poor prognosis. She expressed that she is frightened about her future and "needs help" to improve Review of Systems Constitutional: + weakness Eyes: no problem reported Ear, Nose, Mouth, Throat: no problem reported Respiratory: no dyspnea Cardiovascular: no chest pain Gastrointestinal: no abdominal pain, no diarrhea/loose stools and no melena Physical Exam Constitutional: not in distress Eyes: PERRL, conjunctivae normal, anicteric sclerae ENMT: external ear and nose normal, oropharynx normal Neck: trachea midline, no thyromegaly Respiratory: normal respiratory effort, lungs clear to auscultation Cardiovascular: Rate/Rhythm: regular rate and regular rhythm Extremities: + edema (1+ pretibial pitting edema) Gastrointestinal (Abdomen): normal bowel sounds, soft, nontender, no hepatosplenomegaly Neurologic: awake; not confused Results & Data ([facility]) Vital Signs (Past 12 Hours) Vital Signs Temp Pulse Pulse Pulse Resp BP BP 09/13/21 07:46 36.5 C 77 17 174/77 H 09/13/21 07:35 77 09/13/21 03:35 36.5 C 78 22 164/75 H 09/12/21 22:51 36.6 C 76 18 145/68 H 09/12/21 22:17 73 Pulse Ox 09/13/21 07:46 93 09/13/21 07:35 09/13/21 03:35 94 09/12/21 22:51 93 09/12/21 22:17 Laboratory Results Laboratory Tests 09/12/21 09/13/21 09/13/21 05:46 07:38 07:38 WBC 14.44 H Hgb 8.0 L Hct 24.9 L Plt Count 443 H Sodium 138 Potassium 4.3 Chloride 105 Carbon Dioxide 22 BUN 88 H Creatinine 7.61 H* D Glucose 86 Calcium 8.1 L C-Reactive Protein 12.99 H PG Care Time/CCT Total # of Minutes Spent Total Time Spent with Patient: Total time spent is greater than 50% in coordination of care (as documented) at patient's floor/unit and/or counseling patient: Coding Level of Care Code 47401 Subseq Hosp Care Lvl 3 Diagnoses SHAMEKA (acute kidney injury) N17.9 UTI (urinary tract infection) N30.01 Hematuria presence: with hematuria Urinary tract infection type: acute cystitis Chronic kidney disease, stage III (moderate) N18.30 Melanoma C43.9 (1) UTI (urinary tract infection) Hematuria presence: with hematuria Urinary tract infection type: acute cystitis Qualified Code(s): N30.01 - Acute cystitis with hematuria
[2021-09-13 08:52] LABS: Follicle Stimulating Hormone 1.72 IU/L
[2021-09-13 08:53] LABS: Luteinizing Hormone < 0.20 IU/L
--- NOTE | 2021-09-13 16:59 | Billing Data ---
Date of Service September 13, 2021 Coding Level of Care Code 00938 Subseq Hosp Care Lvl 3
[2021-09-14 06:43] LABS: Hematocrit (blood only) 23.1 % (37-47); Hemoglobin 7.4 g/dL (12.0-16.0); Mean Corpuscular Hemoglobin 28.6 pg (25-34); Mean Corpuscular Volume 89.2 fL (80-100); Mean Platelet Volume 9.8 fL (7.4-10.4); Platelet Count 365 K/uL (130-400); RDW Coefficient of Variation 18.2 % (11.5-14.5); RDW Standard Deviation 57.4 fL (36.4-46.3); Red Blood Count 2.59 M/uL (4.2-5.4); White Blood Count 11.21 K/uL (4.8-10.8)
--- NOTE | 2021-09-14 06:44 | Hospitalist Progress Note ---
Date of Service September 14, 2021 Assessment & Plan (1) Encephalitis: Plan: 76-year-old female with metastatic melanoma (on Keytruda and oral steroid taper), who presented with fever and altered mental status and admitted for metabolic encephalitis and acute kidney injury in the setting of recent discharge for presumed sepsis for fungal UTI, and subacute CVA on 09/05. SHAMEKA/ATN -Suspect secondary to reduced p.o. intake, which in turn was secondary to patient's encephalitis (see above) Suspect encephalitis was, in turn, secondary to inadequate anti-inflammatory protection from patient's Keytruda medicine. -Urine culture + for VRE faecium, Cherry but asymptomatic. -Sensitive to Daptomycin. Continue Daptomycin. -Nephrology consulted. -No acute indication for hemodialysis today. -If kidney function continues to decline, will need to speak to surgery for vascular access on Wednesday/Wednesday. -Discussed vascular access placement and hemodialysis with patient. -Urine output 31 mL overnight; 160 mL over day shift. * IV Normosol stopped. Still on regular diet. * Continue to trend creatinine labs: 8.28 today. * K+ 4.6, WNL. Encephalitis/delirium -Patient presented with altered mental status and fever. x1 temperature spike in the ED. Otherwise afebrile -Patient received 1 dose of vancomycin in the ER. This was discontinued once patient's SHAMEKA became apparent. -suspect encephalitis secondary to Keytruda, as this is a known side effect. Patient was initially on steroids during last hospital stay, given improvement of patient's symptoms on IV steroids. -However, patient's oral steroid regimen was tapered down to chronic home dose. Suspect reduction of anti-inflammatory regimen led to resurgence of encephalitis, leading to altered mental status, which in turn, that the patient's drastically reduced p.o. intake. -Further suspect SHAMEKA initially prerenal secondary to reduced p.o. intake that progressed to intrinsic kidney injury. * Continue methylprednisolone 100 mg IV * Adjusted empiric antibiotic regimen, per ID recommendations:stopped IV meropenem, and caspofungin. Continuing daptomycin. Metastatic melanoma -Patient follows with hematology. On Keytruda and hydrocortisone at home. -Dr. Herrera of oncology, who was consulted, weighed in: Doubtful Keytruda was responsible for encephalitis, as she received her last dose longer for her symptoms started. Suspects hypophysitis * AM coritsol low at 2.29, FSH and LH low for postmenopausal, TSH WNL. Growth hormone and ACTH pending. Code: Full code Dispo: Med-Surg with telemetry FEN/GI: Regular diet DVT Prophylaxis: Heparin 5000 units every 12 hours SQ (2) SHAMEKA (acute kidney injury): (3) Sepsis: (4) Anemia: (5) Leukocytosis: (6) Adrenal suppression: (7) Cerebrovascular accident (CVA): (8) Fever of unknown origin: (9) Chronic kidney disease, stage III (moderate): (10) History of DVT (deep vein thrombosis): Admission and Anticipated Discharge Date Admission Date: September 09, 2021 Supervising Physician Co-Signing Physician Notes I personally examined the patient and verified all yousif points of history and exam, discussed case, and agree with decision making with Dr Guevara still easily confused. does recognize ARF but then also asks some nonsensical questions vitals noted nad heent nc at mmm breathing unlabored no accessory muscles no r/r/w good effort skin no rashes no pallor or icterus septic picture - no clear source, probably from hormonal insufficiencies from hypophysitis - continue increased steriods, f/u labs appearing fairly confirmatory. ?assistance from endocrine on what to watch for, and how to optimally manage possible VRE UTI - hard to distinguish symptoms or not, and while septic picture likely all pituitary, hormonal and not septic - since can't really definitively rule out - obligated to treat - on dapto arf - likely ATN from severe prerenal from poor PO intake. following closely, appreciate nephro input, thus far no acute/urgent HD indications but also ARF not at all improving yet otherwise as above Subjective Spoke to patient today at bedside. Patient doing well but worrying about her current state and need for dialysis. She states she is not currently having any trouble with breathing and eating well. Denies any fevers, chills. States her hearing aide is out of battery and that the battery is eroded. Review of Systems Constitutional: as per Subjective / HPI Physical Exam Constitutional: WD/WN, vitals as above Eyes: PERRL, conjunctivae normal, anicteric sclerae Respiratory: normal respiratory effort, lungs clear to auscultation Cardiovascular: Rate/Rhythm: regular rate and regular rhythm Heart Sounds: normal S1 and normal S2 Extremities: + edema (B/l lower extremities 2+, R arm swelling. ) Gastrointestinal (Abdomen): normal bowel sounds, soft, nontender, no hepatosplenomegaly Psychiatric: A+Ox3, euthymic affect Results & Data Results & Data ([facility]) Vital Signs (Past 12 Hours) Vital Signs Temp Pulse Pulse Resp BP BP Pulse Ox 09/14/21 02:56 36.6 C 77 16 156/82 H 95 09/13/21 22:56 36.5 C 70 17 153/90 H 94 09/13/21 22:18 71 09/13/21 19:29 36.5 C 74 17 141/84 H 96 Resident Activity Tracking Resident Involvement: Resident Care Provided Care Provided: Adult Hospital Medicine (1) Anemia Anemia type: unspecified type Qualified Code(s): D64.9 - Anemia, unspecified (2) Leukocytosis Leukocytosis type: unspecified Qualified Code(s): D72.829 - Elevated white blood cell count, unspecified (3) Sepsis Sepsis acute organ dysfunction status: unspecified Sepsis type: sepsis due to unspecified organism Qualified Code(s): A41.9 - Sepsis, unspecified organism
[2021-09-14 07:08] LABS: Albumin Globulin Ratio 0.8 (0.9-2); Albumin Level 2.5 gm/dl (3.4-5.0); BUN Creatinine Ratio 11.7 (10-20); Bilirubin,Total 0.5 mg/dl (0.2-1.0); Calcium 7.9 mg/dl (8.5-10.1); Creatinine Clr Calc Pharmacy 7.1 ml/min; Est GFR (African American) 4.9 ml/min; Est GFR (Non-African American) 4.2 ml/min; Potassium 4.6 mmol/L (3.5-5.1); Total Protein 5.5 gm/dl (6.0-8.3)
--- NOTE | 2021-09-14 08:56 | Nephrology Progress Note ---
Date of Service September 14, 2021 Assessment & Plan (1) SHAMEKA (acute kidney injury): Plan: * Patient had been on nivolumab/ipilimumab prior to admission. Both agents can be associated with SHAMEKA/AIN. Cr is rising despite IV Solumedrol * Urine sediment suggestive of UTI or AIN * Agree w/ Solumedrol and antibiotic therapy * Volume status and electrolyte balance remain acceptable. No acute indication for HD today. If kidney function fails to stabilize, will need to discuss va scular access placement w/ general surgery on /Wed (vascular surgery OOT through early September) * Discussed vascular access placement and HD in detail w/ patient today. Ms. Newman states "I need to read some books to make a decision!" * Telephone call with son Octaviano Newman this morning: Medical update provided. Patient does list dialysis as acceptable on her living will, son is in agreement * Monitor PRP (2) Melanoma: Plan: * Discussed medical course w/ Dr. Herrera by telephone this morning: Ms. Newman had a good clinical response to nivolumab/ipilimumab (3) UTI (urinary tract infection): Plan: * Monitor CPK while on daptomycin * Urine +VRE and marsha (4) Chronic kidney disease, stage III (moderate): Plan: * CKD stage G3a/A3 (moderate impairment). Baseline Cr 1-1.3 mg/dL w/ EGFR 58cc/min. UPCR 0.5. Renal US revealed bilateral cortical atrophy c/w microvascular disease Admission and Anticipated Discharge Date Admission Date: September 09, 2021 Subjective Ms. Newman was evaluated in her hospital room this morning. She is extremely [place]. staff field engineer reports that Ms. Newman is extremely [place] even with hearing aids in. Ms. Newman denies fever, angina, dyspnea or nausea. She is oriented to self and month only. She has no recollection of our conversation regarding dialysis yesterday Review of Systems Constitutional: + weakness Eyes: no problem reported Ear, Nose, Mouth, Throat: no problem reported Respiratory: no dyspnea Cardiovascular: no chest pain Gastrointestinal: no abdominal pain, no diarrhea/loose stools and no melena Genitourinary: no dysuria Physical Exam Constitutional: not in distress breathing comfortably on O2 at 1L/min NC Eyes: PERRL, conjunctivae normal, anicteric sclerae ENMT: external ear and nose normal, oropharynx normal Neck: trachea midline, no thyromegaly Respiratory: normal respiratory effort, lungs clear to auscultation Cardiovascular: Rate/Rhythm: regular rate and regular rhythm Extremities: + edema (1+ pretibial pitting edema) Gastrointestinal (Abdomen): normal bowel sounds, soft, nontender, no hepatosplenomegaly Neurologic: awake; not confused Results & Data ([place]) Vital Signs (Past 12 Hours) Vital Signs Temp Pulse Pulse Resp BP Pulse Ox 09/14/21 07:42 36.5 C 75 17 151/86 H 95 09/14/21 02:56 36.6 C 77 16 156/82 H 95 09/13/21 22:56 36.5 C 70 17 153/90 H 94 09/13/21 22:18 71 Laboratory Results Laboratory Tests 09/14/21 09/14/21 06:04 06:04 WBC 11.21 H Hgb 7.4 L Hct 23.1 L Plt Count 365 Sodium 137 Potassium 4.6 Chloride 104 Carbon Dioxide 20 L BUN 97 H Creatinine 8.28 H* D Glucose 95 Calcium 7.9 L Total Creatine Kinase 25 L Albumin 2.5 L PG Care Time/CCT Total # of Minutes Spent Total Time Spent with Patient: Total time spent is greater than 50% in coordination of care (as documented) at patient's floor/unit and/or counseling patient: Coding Level of Care Code 68531 Subseq Hosp Care Lvl 3 Diagnoses SHAMEKA (acute kidney injury) N17.9 Melanoma C43.9 UTI (urinary tract infection) N30.01 Hematuria presence: with hematuria Urinary tract infection type: acute cystitis Chronic kidney disease, stage III (moderate) N18.30 (1) UTI (urinary tract infection) Hematuria presence: with hematuria Urinary tract infection type: acute cystitis Qualified Code(s): N30.01 - Acute cystitis with hematuria
[2021-09-14] MEDS ORDERED: DAPTOmycin 650 MG in SYRINGE 0 ML IV SCH (09:00)
[2021-09-14] MEDS: HEPARIN SOD 5,000 UNIT/0.5 ML VIAL SQ SCH ×2 (09:29→19:23)
[2021-09-14] MEDS: methylPREDNISolone 100 MG in SYRINGE 0 ML IV SCH (09:29)
[2021-09-14] MEDS: ASPIRIN 81 MG ECTAB PO SCH (09:29)
[2021-09-14] MEDS: MONTELUKAST SODIUM 10 MG TABLET PO SCH (09:30)
[2021-09-14] MEDS: MULTIVITAMIN TAB PO SCH (09:30)
[2021-09-14] MEDS: PANTOprazole 40 MG TAB PO SCH ×2 (09:30→19:25)
--- NOTE | 2021-09-14 15:55 | Billing Data ---
Date of Service September 14, 2021 Coding Level of Care Code 92061 Subseq Hosp Care Lvl 3
[2021-09-15 06:06] LABS: Hematocrit (blood only) 26.4 % (37-47); Hemoglobin 8.6 g/dL (12.0-16.0); Mean Corpuscular Hemoglobin 28.9 pg (25-34); Mean Corpuscular Hgb Conc 32.6 g/dL (32-36); Mean Corpuscular Volume 88.6 fL (80-100); Mean Platelet Volume 9.8 fL (7.4-10.4); Platelet Count 414 K/uL (130-400); RDW Coefficient of Variation 18.3 % (11.5-14.5); RDW Standard Deviation 57.2 fL (36.4-46.3); Red Blood Count 2.98 M/uL (4.2-5.4); White Blood Count 13.16 K/uL (4.8-10.8)
[2021-09-15 06:40] LABS: INR 1.1 (0.9-1.1); Prothrombin Time 11.4 Seconds (9.0-12.0)
[2021-09-15 06:47] LABS: BUN Creatinine Ratio 12.2 (10-20); Calcium 8.3 mg/dl (8.5-10.1); Creatinine Clr Calc Pharmacy 6.8 ml/min; Est GFR (African American) 4.6 ml/min; Potassium 5.1 mmol/L (3.5-5.1)
--- NOTE | 2021-09-15 06:47 | Hospitalist Progress Note ---
Date of Service September 15, 2021 Assessment & Plan (1) Encephalitis: Plan: 76-year-old female with past medical history HTN, GERD, History of DVT, metastatic melanoma (on Keytruda and oral steroid taper), who presented with fever and altered mental status and admitted for metabolic encephalitis and acute kidney injury in the setting of recent discharge for presumed sepsis for fungal UTI, and subacute CVA on 09/05. SHAMEKA Secondary to ATN -Baseline creatinine 0.9-1.1. Creatinine trending up, 8.71 this AM. -Urine output 200ml overnight, 150ml in AM. -Urine culture + for VRE faecium, Cherry but asymptomatic. -Sensitive to Daptomycin. Continue Daptomycin. -ATN may be secondary to VRE UTI. -Nephrology consulted. -Patient non-oliguric, no acute indication for hemodialysis today. -If kidney function continues to decline, will need to speak to surgery for vascular access on Wednesday/Wednesday. -Discussed vascular access placement and hemodialysis with patient. -AM BMP. Encephalitis/delirium -AMS and fever to 38.1 in ED. -Patient received 1 dose of vancomycin in the ER. -Initially thought to be due to Keytruda b/c of side effect profile. -Dr. Herrera of oncology consulted: -Doubtful Keytruda was responsible for encephalitis, as she received her last dose long before for her symptoms started. -Suspects hypophysitis. -AM Cortisol low at 2.29, FSH and LH low at 1.72 & <0.20, respectively. TSH 1.72 WNL. GH and ACTH still pending. -Infectious disease consulted: -Reduced anti-inflammatory regimen may have led to resurgence of encephalitis along w/ AMS. -Further suspect SHAMEKA initially prerenal secondary to reduced p.o. intake that progressed to intrinsic kidney injury. -Continue methylprednisolone 100 mg IV -Stopped IV meropenem, and caspofungin. Given 5 days daptomycin. Concern of Hypophysitis - Continue methylprednisolone 100 mg IV - see above under delirium VRE UTI -Urine culture as above (VRE, cherry). -Completed 5 days of Daptomycin. -Monitor I&O's, vitals. HTN -Holding Norvasc and metoprolol. Hx of DVT -Patient on heparin 5000 units q12h for DVT prophylaxis. -Holding home Eliquis. Can restart upon discharge. Metastatic melanoma -Patient follows with hematology. On Keytruda and hydrocortisone at home. Code: Full code Dispo: Med-Surg with telemetry FEN/GI: Regular diet DVT Prophylaxis: Heparin 5000 units every 12 hours SQ (2) SHAMEKA (acute kidney injury): (3) Sepsis: (4) Anemia: (5) Leukocytosis: (6) Adrenal suppression: (7) Cerebrovascular accident (CVA): (8) Fever of unknown origin: (9) Chronic kidney disease, stage III (moderate): (10) History of DVT (deep vein thrombosis): Admission and Anticipated Discharge Date Admission Date: September 09, 2021 Supervising Physician Co-Signing Physician Notes Resident Physician Supervision Note: I independently interviewed and examined the patient and verified the yousif history and physical, reviewed labs and image studies and agree with resident Dr. Guevara findings and care plan. Subjective Patient seen at bedside this morning. Patient continues to feel anxious about the dialysis but says she is "strong and wants to fight on". Denies any pain, shortness of breath, chest pain, nausea, fevers, chills. Patient would like to know if hearing aide battery can be changed. Review of Systems Constitutional: as per Subjective / HPI Physical Exam Constitutional: WD/WN, vitals as above Eyes: PERRL, conjunctivae normal, anicteric sclerae Respiratory: normal respiratory effort, lungs clear to auscultation Cardiovascular: Rate/Rhythm: regular rate and regular rhythm Heart Sounds: normal S1 and normal S2 Extremities: + edema (B/l lower extremities 1+, R arm swelling. ) Gastrointestinal (Abdomen): normal bowel sounds, soft, nontender, no hepatosplenomegaly Psychiatric: Orientation: alert Results & Data Results & Data ([facility]) Vital Signs (Past 12 Hours) Vital Signs Temp Pulse Pulse Resp BP Pulse Ox 09/15/21 05:25 36.5 C 76 16 144/82 H 94 09/15/21 00:33 36.6 C 69 18 136/79 94 09/14/21 22:13 69 09/14/21 19:15 37.1 C 75 18 148/76 H 94 Resident Activity Tracking Resident Involvement: Resident Care Provided Care Provided: Adult Hospital Medicine (1) Anemia Anemia type: unspecified type Qualified Code(s): D64.9 - Anemia, unspecified (2) Leukocytosis Leukocytosis type: unspecified Qualified Code(s): D72.829 - Elevated white blood cell count, unspecified (3) Sepsis Sepsis acute organ dysfunction status: unspecified Sepsis type: sepsis due to unspecified organism Qualified Code(s): A41.9 - Sepsis, unspecified organism
[2021-09-15] MEDS: methylPREDNISolone 100 MG in SYRINGE 0 ML IV SCH (08:25)
[2021-09-15] MEDS: MONTELUKAST SODIUM 10 MG TABLET PO SCH (08:28)
[2021-09-15] MEDS: HEPARIN SOD 5,000 UNIT/0.5 ML VIAL SQ SCH ×2 (08:28→20:52)
[2021-09-15] MEDS: ASPIRIN 81 MG ECTAB PO SCH (08:28)
[2021-09-15] MEDS: PANTOprazole 40 MG TAB PO SCH ×2 (08:28→20:52)
[2021-09-15] MEDS: MULTIVITAMIN TAB PO SCH (08:28)
--- NOTE | 2021-09-15 08:51 | Nephrology Progress Note ---
Date of Service September 15, 2021 Assessment & Plan (1) SHAMEKA (acute kidney injury): Plan: * Patient had been on nivolumab/ipilimumab prior to admission. Both agents can be associated with SHAMEKA/AIN. Cr continues to rise despite IV Solumedrol * Urine sediment suggestive of UTI or AIN * Agree w/ Solumedrol and antibiotic therapy * Although creatinine is increasing, patient is now nonoliguric. Volume status and electrolyte balance remain acceptable. No acute indication for HD today. * If kidney function fails to stabilize, will need to discuss vascular access placement w/ general surgery on /Wed (vascular surgery OOT through early September) * Discussed vascular access placement and HD in detail w/ patient and her son Octaviano. They wish to pursue HD if it becomes necessary * Monitor PRP (2) Melanoma: Plan: * Discussed medical course w/ Dr. Herrera by telephone 09/14/21: Ms. Newman had a good clinical response to nivolumab/ipilimumab (3) UTI (urinary tract infection): Plan: * Monitor CPK while on daptomycin * Urine +VRE and marsha (4) Chronic kidney disease, stage III (moderate): Plan: * CKD stage G3a/A3 (moderate impairment). Baseline Cr 1-1.3 mg/dL w/ EGFR 58cc/min. UPCR 0.5. Renal US revealed bilateral cortical atrophy c/w microvascular disease Admission and Anticipated Discharge Date Admission Date: September 09, 2021 Subjective Ms. Newman was evaluated in her hospital room this morning. She is not wearing hearing aids and is extremely [place]. She is oriented to self and month only. She denies angina, dyspnea, nausea or flank pain Review of Systems Constitutional: + weakness Eyes: no problem reported Ear, Nose, Mouth, Throat: no problem reported Respiratory: no dyspnea Cardiovascular: no chest pain Gastrointestinal: no abdominal pain, no diarrhea/loose stools and no melena Genitourinary: no dysuria Physical Exam Constitutional: not in distress Eyes: PERRL, conjunctivae normal, anicteric sclerae ENMT: external ear and nose normal, oropharynx normal Neck: trachea midline, no thyromegaly Respiratory: normal respiratory effort, lungs clear to auscultation Cardiovascular: Rate/Rhythm: regular rate and regular rhythm Extremities: + edema (1+ pretibial pitting edema) Gastrointestinal (Abdomen): normal bowel sounds, soft, nontender, no hepatosplenomegaly Neurologic: awake; not confused Results & Data ([facility]) Vital Signs (Past 12 Hours) Vital Signs Temp Pulse Pulse Resp BP BP Pulse Ox 09/15/21 08:29 36.4 C L 82 14 176/91 H 94 09/15/21 05:25 36.5 C 76 16 144/82 H 94 09/15/21 00:33 36.6 C 69 18 136/79 94 09/14/21 22:13 69 Laboratory Results Laboratory Tests 09/14/21 09/15/21 09/15/21 06:04 05:20 05:20 WBC 13.16 H Hgb 8.6 L Hct 26.4 L Plt Count 414 H Sodium 136 Potassium 5.1 Chloride 103 Carbon Dioxide 19 L BUN 106 H Creatinine 8.71 H* D Glucose 100 H Calcium 8.3 L Total Creatine Kinase 25 L Albumin 2.5 L PG Care Time/CCT Total # of Minutes Spent Total Time Spent with Patient: Total time spent is greater than 50% in coordination of care (as documented) at patient's floor/unit and/or counseling patient: Coding Level of Care Code 64045 Subseq Hosp Care Lvl 3 Diagnoses SHAMEKA (acute kidney injury) N17.9 Melanoma C43.9 UTI (urinary tract infection) N30.01 Hematuria presence: with hematuria Urinary tract infection type: acute cystitis Chronic kidney disease, stage III (moderate) N18.30 (1) UTI (urinary tract infection) Hematuria presence: with hematuria Urinary tract infection type: acute cystitis Qualified Code(s): N30.01 - Acute cystitis with hematuria
--- NOTE | 2021-09-16 06:43 | Hospitalist Progress Note ---
Date of Service September 16, 2021 Assessment & Plan (1) Encephalitis: Plan: 76-year-old female with past medical history HTN, GERD, History of DVT, metastatic melanoma (on Keytruda and oral steroid taper), who presented with fever and altered mental status and admitted for metabolic encephalitis and acute kidney injury in the setting of recent discharge for presumed sepsis for fungal UTI, and subacute CVA on 09/05. SHAMEKA Secondary to ATN -Baseline creatinine 0.9-1.1. Creatinine trending up, 9.12 this AM. -Urine culture + for VRE faecium, Cherry but asymptomatic. -Sensitive to Daptomycin. Completed Daptomycin x5 days. -ATN may be secondary to VRE UTI. -Nephrology consulted. -Patient non-oliguric, no acute indication for hemodialysis today. -Surgery can place IJ TCC access morning if needed. -AM BMP, monitor I&O's. Encephalitis/delirium - resolved -AMS and fever to 38.1 in ED. -Patient received 1 dose of vancomycin in the ER. -Initially thought to be due to Keytruda b/c of side effect profile. -Dr. Herrera of oncology consulted: -Doubtful Keytruda was responsible for encephalitis, as she received her last dose long before for her symptoms started. -Suspects hypophysitis. -AM Cortisol low at 2.29, FSH and LH low at 1.72 & <0.20, respectively. TSH 1.72 WNL. GH and ACTH still pending. -Infectious disease consulted: -Reduced anti-inflammatory regimen may have led to resurgence of encephalitis along w/ AMS. -Further suspect SHAMEKA initially prerenal secondary to reduced p.o. intake that progressed to intrinsic kidney injury. -Continue methylprednisolone 100 mg IV -Stopped IV meropenem, and caspofungin. Given 5 days daptomycin. Concern of Hypophysitis - Continue methylprednisolone 100 mg IV - see above under delirium VRE UTI -Urine culture as above (VRE, cherry). -Completed 5 days of Daptomycin. -Monitor I&O's, vitals. HTN -Holding Norvasc and metoprolol. Hx of DVT -Patient on heparin 5000 units q12h for DVT prophylaxis. -Holding home Eliquis. Can restart upon discharge. Metastatic melanoma -Patient follows with hematology. On Keytruda and hydrocortisone at home. Code: Full code Dispo: Med-Surg with telemetry FEN/GI: Regular diet DVT Prophylaxis: Heparin 5000 units every 12 hours SQ (2) SHAMEKA (acute kidney injury): (3) Sepsis: (4) Anemia: (5) Leukocytosis: (6) Adrenal suppression: (7) Cerebrovascular accident (CVA): (8) Fever of unknown origin: (9) Chronic kidney disease, stage III (moderate): (10) History of DVT (deep vein thrombosis): Admission and Anticipated Discharge Date Admission Date: September 09, 2021 Supervising Physician Co-Signing Physician Notes Resident Physician Supervision Note: I independently interviewed and examined the patient and verified the yousif history and physical, reviewed labs and image studies and agree with resident Dr. Guevara findings and care plan. Subjective Patient without complaints today except for feeling anxious about her situation. She denies any shortness of breath, chest pain, fevers, chills. Review of Systems Constitutional: as per Subjective / HPI Physical Exam Constitutional: WD/WN, vitals as above Eyes: PERRL, conjunctivae normal, anicteric sclerae Respiratory: normal respiratory effort, lungs clear to auscultation Cardiovascular: Rate/Rhythm: regular rate and regular rhythm Heart Sounds: normal S1 and normal S2 Extremities: + edema (B/l lower extremities 1+, R arm swelling. ) Gastrointestinal (Abdomen): normal bowel sounds, soft, nontender, no hepatosplenomegaly Psychiatric: Orientation: alert Results & Data Results & Data ([facility]) Vital Signs (Past 12 Hours) Vital Signs Temp Pulse Pulse Resp BP BP Pulse Ox 09/16/21 04:55 36.5 C 75 19 164/88 H 96 09/15/21 23:31 36.7 C 70 16 173/93 H 94 09/15/21 19:00 36.8 C 72 18 150/91 H 94 Resident Activity Tracking Resident Involvement: Resident Care Provided Care Provided: Adult Hospital Medicine (1) Anemia Anemia type: unspecified type Qualified Code(s): D64.9 - Anemia, unspecified (2) Leukocytosis Leukocytosis type: unspecified Qualified Code(s): D72.829 - Elevated white blood cell count, unspecified (3) Sepsis Sepsis acute organ dysfunction status: unspecified Sepsis type: sepsis due to unspecified organism Qualified Code(s): A41.9 - Sepsis, unspecified organism
[2021-09-16 07:57] LABS: BUN Creatinine Ratio 12.5 (10-20); Calcium 8.2 mg/dl (8.5-10.1); Creatinine Clr Calc Pharmacy 6.5 ml/min; Est GFR (African American) 4.3 ml/min; Est GFR (Non-African American) 3.8 ml/min; Potassium 5.3 mmol/L (3.5-5.1)
[2021-09-16 08:12] LABS: Ferritin 801.3 ng/ml (8-388)
--- NOTE | 2021-09-16 08:49 | Nephrology Progress Note ---
Date of Service September 16, 2021 Assessment & Plan (1) SHAMEKA (acute kidney injury): Plan: * Patient had been on nivolumab/ipilimumab prior to admission. Both agents can be associated with SHAMEKA/AIN. Cr continues to rise despite IV Solumedrol * Urine sediment suggestive of UTI or AIN * Agree w/ Solumedrol and antibiotic therapy * Patient is nonoliguric. Cr continues to rise. Volume status and electrolyte balance remain acceptable. No acute indication for HD today. * Discussed w/ Dr. Abbott this am. He is able to place IJ TCC am if needed * Will recheck UO, kidney function, volume status and electrolyte balance in am. If HD indicated, will then request consultation with general surgery * Monitor PRP * Updated patient's son, Octaviano (primary contact), by telephone this morning (2) Melanoma: Plan: * Discussed medical course w/ Dr. Herrera by telephone 09/14/21: Ms. Newman had a good clinical response to nivolumab/ipilimumab (3) UTI (urinary tract infection): Plan: * Monitor CPK while on daptomycin * Urine +VRE and marsha (4) Chronic kidney disease, stage III (moderate): Plan: * CKD stage G3a/A3 (moderate impairment). Baseline Cr 1-1.3 mg/dL w/ EGFR 58cc/min. UPCR 0.5. Renal US revealed bilateral cortical atrophy c/w micro vascular disease Admission and Anticipated Discharge Date Admission Date: September 09, 2021 Subjective Ms. Newman was evaluated in her hospital room this morning. chief of staff doctor had just finished bathing her and had put her hearing aids in. Ms. Newman remains extremely [place]. She denies fever, angina, dyspnea or nausea. She is oriented to self and month only, but will follow one step commands Review of Systems Constitutional: + weakness Eyes: no problem reported Ear, Nose, Mouth, Throat: no problem reported Respiratory: no dyspnea Cardiovascular: no chest pain Gastrointestinal: no abdominal pain, no diarrhea/loose stools and no melena Genitourinary: no dysuria Physical Exam Constitutional: not in distress Eyes: PERRL, conjunctivae normal, anicteric sclerae ENMT: external ear and nose normal, oropharynx normal Neck: trachea midline, no thyromegaly Respiratory: normal respiratory effort, lungs clear to auscultation Cardiovascular: Rate/Rhythm: regular rate and regular rhythm Extremities: + edema (1+ pretibial pitting edema) Gastrointestinal (Abdomen): normal bowel sounds, soft, nontender, no hepatosplenomegaly Neurologic: awake; not confused Results & Data ([facility]) Vital Signs (Past 12 Hours) Vital Signs Temp Pulse Pulse Resp BP BP Pulse Ox 09/16/21 08:05 36.4 C L 77 14 155/74 H 93 09/16/21 04:55 36.5 C 75 19 164/88 H 96 09/15/21 23:31 36.7 C 70 16 173/93 H 94 Laboratory Results Laboratory Tests 09/15/21 09/15/21 09/16/21 05:20 05:20 06:16 WBC 13.16 H Hgb 8.6 L Hct 26.4 L Plt Count 414 H INR 1.1 Sodium 135 L Potassium 5.3 H Chloride 104 Carbon Dioxide 16 L BUN 114 H Creatinine 9.12 H* D Glucose 86 Calcium 8.2 L Transferrin % Sat 65 H Ferritin 801.3 H PG Care Time/CCT Total # of Minutes Spent Total Time Spent with Patient: Total time spent is greater than 50% in coordination of care (as documented) at patient's floor/unit and/or counseling patient: Coding Level of Care Code 45948 Subseq Hosp Care Lvl 3 Diagnoses SHAMEKA (acute kidney injury) N17.9 Melanoma C43.9 UTI (urinary tract infection) N30.01 Hematuria presence: with hematuria Urinary tract infection type: acute cystitis Chronic kidney disease, stage III (moderate) N18.30 (1) UTI (urinary tract infection) Hematuria presence: with hematuria Urinary tract infection type: acute cystitis Qualified Code(s): N30.01 - Acute cystitis with hematuria
[2021-09-16] MEDS ORDERED: PATIROMER CALCIUM SORBITEX 8.4 GM PACK PO ONE (09:06)
[2021-09-16] MEDS: HEPARIN SOD 5,000 UNIT/0.5 ML VIAL SQ SCH ×2 (09:27→20:58)
[2021-09-16] MEDS: methylPREDNISolone 100 MG in SYRINGE 0 ML IV SCH (09:27)
[2021-09-16] MEDS: MULTIVITAMIN TAB PO SCH (09:28)
[2021-09-16] MEDS: PANTOprazole 40 MG TAB PO SCH ×2 (09:28→20:58)
[2021-09-16] MEDS: ASPIRIN 81 MG ECTAB PO SCH (09:28)
[2021-09-16] MEDS: MONTELUKAST SODIUM 10 MG TABLET PO SCH (09:28)
[2021-09-16] MEDS: ACETAMINOPHEN 325 MG TAB PO PRN (20:57)
[2021-09-17 07:02] LABS: Hematocrit (blood only) 26.2 % (37-47); Hemoglobin 8.6 g/dL (12.0-16.0); Mean Corpuscular Hemoglobin 28.8 pg (25-34); Mean Corpuscular Hgb Conc 32.8 g/dL (32-36); Mean Corpuscular Volume 87.6 fL (80-100); Mean Platelet Volume 9.9 fL (7.4-10.4); Platelet Count 322 K/uL (130-400); RDW Coefficient of Variation 18.7 % (11.5-14.5); RDW Standard Deviation 57.3 fL (36.4-46.3); Red Blood Count 2.99 M/uL (4.2-5.4); White Blood Count 12.01 K/uL (4.8-10.8)
[2021-09-17 07:28] LABS: Anion Gap 14 (3-11); BUN Creatinine Ratio 12.2 (10-20); Blood Urea Nitrogen 118 mg/dl (6-23); Calcium 8.2 mg/dl (8.5-10.1); Carbon Dioxide 18 mmol/L (21-32); Chloride 102 mmol/L (98-107); Creatinine Clr Calc Pharmacy 6.1 ml/min; Est GFR (Non-African American) 3.5 ml/min; Glucose 79 mg/dl (70-99(Fasting)); Sodium 134 mmol/L (136-145)
--- NOTE | 2021-09-17 08:12 | Hospitalist Progress Note ---
Date of Service September 17, 2021 Assessment & Plan (1) Encephalitis: Plan: 76-year-old female with past medical history HTN, GERD, History of DVT, metastatic melanoma (on Keytruda and oral steroid taper), who presented with fever and altered mental status and admitted for metabolic encephalitis and acute kidney injury in the setting of recent discharge for presumed sepsis for fungal UTI, and subacute CVA on 09/05. SHAMEKA Secondary to ATN -Baseline creatinine 0.9-1.1. Creatinine trending up, 9.71 this AM. -Urine culture + for VRE faecium, Cherry but asymptomatic. -Sensitive to Daptomycin. Completed Daptomycin x5 days. -ATN may be secondary to VRE UTI/AIN -Nephrology consulted. -nivolumab/ipilimumab prior to admission. Both agents can be associated with SHAMEKA/AIN -Patient non-oliguric, no acute indication for hemodialysis today. -Creatinine and GFR continue to worsen. -Surgery can place IJ TCC access morning. -AM BMP, monitor I&O's. Encephalitis/delirium - resolved -AMS and fever to 38.1 in ED. -Patient received 1 dose of vancomycin in the ER. -Initially thought to be due to Keytruda b/c of side effect profile. -Dr. Herrera of oncology consulted: -Doubtful Keytruda was responsible for encephalitis, as she received her last dose long before for her symptoms started. -Suspects hypophysitis. -AM Cortisol low at 2.29, FSH and LH low at 1.72 & <0.20, respectively. TSH 1.72 WNL. GH and ACTH still pending. -Infectious disease consulted: -Reduced anti-inflammatory regimen may have led to resurgence of encephalitis along w/ AMS. -Further suspect SHAMEKA initially prerenal secondary to reduced p.o. intake that progressed to intrinsic kidney injury. -Continue methylprednisolone 100 mg IV -Stopped IV meropenem, and caspofungin. Received 5 days of daptomycin. -5 days resulted urine culture 09/17/2021 with cherry multiple different species. no intervention Concern of Hypophysitis - Continue methylprednisolone 100 mg IV - see above under delirium VRE UTI -Urine culture as above (VRE, cherry). -Completed 5 days of Daptomycin. -Monitor I&O's, vitals. HTN -Holding Norvasc and metoprolol. Hx of DVT -Patient on heparin 5000 units q12h for DVT prophylaxis - holding for procedure in am -Holding home Eliquis. Metastatic melanoma -Patient follows with hematology. On Keytruda and hydrocortisone at home. Code: Full code Dispo: Med-Surg with telemetry FEN/GI: Regular diet, NPO for procedure in am. DVT Prophylaxis: Heparin 5000 units every 12 hours SQ (2) SHAMEKA (acute kidney injury): (3) Sepsis: (4) Anemia: (5) Leukocytosis: (6) Adrenal suppression: (7) Cerebrovascular accident (CVA): (8) Fever of unknown origin: (9) Chronic kidney disease, stage III (moderate): (10) History of DVT (deep vein thrombosis): Admission and Anticipated Discharge Date Admission Date: September 09, 2021 Supervising Physician Co-Signing Physician Notes Resident Physician Supervision Note: I independently interviewed and examined the patient and verified the yousif history and physical, reviewed labs and image studies and agree with resident Dr. Guevara findings and care plan. Subjective Patient seen at the bedside today and feeling the same as yesterday, no acute complaints other than feeling anxious about her future medical plans. Denies any shortness of breath, chest pain, fevers, chills. Review of Systems Constitutional: as per Subjective / HPI Physical Exam Constitutional: WD/WN, vitals as above Eyes: PERRL, conjunctivae normal, anicteric sclerae Respiratory: normal respiratory effort, lungs clear to auscultation Cardiovascular: Rate/Rhythm: regular rate and regular rhythm Heart Sounds: normal S1 and normal S2 Extremities: + edema (B/l lower extremities 1+, R arm swelling. ) Gastrointestinal (Abdomen): normal bowel sounds, soft, nontender, no hepatosplenomegaly Psychiatric: Orientation: alert Results & Data Results & Data ([facility]) Vital Signs (Past 12 Hours) Vital Signs Temp Pulse Pulse Resp BP BP Pulse Ox 09/17/21 07:38 71 09/17/21 03:20 36.9 C 71 18 166/95 H 92 09/16/21 23:21 36.6 C 68 15 159/91 H 92 09/16/21 23:00 62 Resident Activity Tracking Resident Involvement: Resident Care Provided Care Provided: Adult Hospital Medicine (1) Anemia Anemia type: unspecified type Qualified Code(s): D64.9 - Anemia, unspecified (2) Leukocytosis Leukocytosis type: unspecified Qualified Code(s): D72.829 - Elevated white blood cell count, unspecified (3) Sepsis Sepsis acute organ dysfunction status: unspecified Sepsis type: sepsis due to unspecified organism Qualified Code(s): A41.9 - Sepsis, unspecified organism
--- NOTE | 2021-09-17 08:23 | Nephrology Progress Note ---
Date of Service September 17, 2021 Assessment & Plan (1) SHAMEKA (acute kidney injury): Plan: * Patient had been on nivolumab/ipilimumab prior to admission. Both agents can be associated with SHAMEKA/AIN. Cr continues to rise despite IV Solumedrol * Urine sediment suggestive of UTI or AIN * Agree w/ Solumedrol * Patient is nonoliguric. Cr continues to rise. EGFR is down to 3 cc/min. Volume status and electrolyte balance remain acceptable. Recommend IJ TCC insertion and initiation of HD 09/18. Discussed w/ patient's son Octaviano by telephone this am. He is agreeable to starting HD for his mother * Discussed w/ Dr. Abbott. IJ TCC scheduled for am * Recommend primary service make patient NPO after MN for procedure tomorrow * Monitor PRP (2) Melanoma: Plan: * Discussed medical course w/ Dr. Herrera by telephone 09/14/21: Ms. Newman had a good clinical response to nivolumab/ipilimumab (3) UTI (urinary tract infection): Plan: * Monitor CPK while on daptomycin * Urine +VRE and marsha (4) Chronic kidney disease, stage III (moderate): Plan: * CKD stage G3a/A3 (moderate impairment). Baseline Cr 1-1.3 mg/dL w/ EGFR 58cc/min. UPCR 0.5. Renal US revealed bilateral cortical atrophy c/w microvascular disease Admission and Anticipated Discharge Date Admission Date: September 09, 2021 Subjective Ms. Newman was evaluated in her hospital room this morning. She was in no distress but did appear delirious. She was not oriented. She is extremely CHITINA. Review of Systems Constitutional: + weakness Eyes: no problem reported Ear, Nose, Mouth, Throat: no problem reported Respiratory: no dyspnea Cardiovascular: no chest pain Gastrointestinal: no abdominal pain, no diarrhea/loose stools and no melena Genitourinary: no dysuria Physical Exam Constitutional: not in distress Eyes: PERRL, conjunctivae normal, anicteric sclerae ENMT: external ear and nose normal, oropharynx normal Neck: trachea midline, no thyromegaly Respiratory: normal respiratory effort, lungs clear to auscultation Cardiovascular: Rate/Rhythm: regular rate and regular rhythm Extremities: + edema (1+ pretibial pitting edema) Gastrointestinal (Abdomen): normal bowel sounds, soft, nontender, no hepatosplenomegaly Neurologic: awake; not confused Results & Data ([facility]) Vital Signs (Past 12 Hours) Vital Signs Temp Pulse Pulse Resp BP BP Pulse Ox 09/17/21 07:38 71 09/17/21 03:20 36.9 C 71 18 166/95 H 92 09/16/21 23:21 36.6 C 68 15 159/91 H 92 09/16/21 23:00 62 PG Care Time/CCT Total # of Minutes Spent Total Time Spent with Patient: Total time spent is greater than 50% in coordination of care (as documented) at patient's floor/unit and/or counseling patient: Coding Level of Care Code 83897 Subseq Hosp Care Lvl 3 Diagnoses SHAMEKA (acute kidney injury) N17.9 Melanoma C43.9 UTI (urinary tract infection) N30.01 Hematuria presence: with hematuria Urinary tract infection type: acute cystitis Chronic kidney disease, stage III (moderate) N18.30 (1) UTI (urinary tract infection) Hematuria presence: with hematuria Urinary tract infection type: acute cystitis Qualified Code(s): N30.01 - Acute cystitis with hematuria
[2021-09-17] MEDS: ASPIRIN 81 MG ECTAB PO SCH (09:39)
[2021-09-17] MEDS: HEPARIN SOD 5,000 UNIT/0.5 ML VIAL SQ SCH (09:39)
[2021-09-17] MEDS: MULTIVITAMIN TAB PO SCH (09:39)
[2021-09-17] MEDS: methylPREDNISolone 100 MG in SYRINGE 0 ML IV SCH (09:40)
[2021-09-17] MEDS: MONTELUKAST SODIUM 10 MG TABLET PO SCH (09:40)
[2021-09-17] MEDS: PANTOprazole 40 MG TAB PO SCH ×2 (09:40→20:43)
--- NOTE | 2021-09-17 09:58 | Surgery Consultation ---
Date of Consultation September 17, 2021 Assessment & Plan (1) SHAMEKA (acute kidney injury): This is a 76yF with a PMH of melanoma, HTN, GERD, CKD, CVA, DVT, now admitted to the [facility] on 09/09/21 with fevers and AMS. Nephrology has been following patient for her SHAMEKA in the setting of UTI and recent medication use for her melanoma. We have been consulted for consideration of TDC placement given patient's worsening renal function. Patient's Cr continues to rise (9.7) today from 4.8 on admission, K (5.2) & BUN (118). She has a rose catheter in place and it appears she is making a little more urine. We will proceed given nephrology's recommendations with TDC placement tomorrow in the OR. It appears this has been discussed with patient's son Octaviano who wishes to move forward with plans for dialysis. Keep NPO at midnight. Dr. Abbott will obtain consent tomorrow. History of Present Illness Attending Physician: Padma Schmitz MD History of Present Illness This is a 76yF with a PMH of melanoma, HTN, GERD, CKD, CVA, DVT, now admitted to the [facility] on 09/09/21 with fevers and AMS. Majority of HPI obtained from chart review as patient is confused and very hard of hearing. She was of note recently admitted for CVA and fevers suspected to be from pneumonia and UTI. On admission patient noted to have an SHAMEKA likely in the setting of UTI & medication use for her melanoma. Nephrology has been following. Unfortunately kidney function is worsening and we have been consulted for consideration of a TDC placement. Allergies Allergy/AdvReac Type Severity Reaction Status Date / Time tramadol Allergy Mild NASUEA/CONF Verified 09/09/21 19:34 USION cephalexin [From Keflex] AdvReac Mild upset Verified 09/09/21 19:34 stomach Home Medications Medication Instructions Recorded Confirmed Type amlodipine 5 mg tablet (Norvasc) 5 mg PO QAM 12/05/18 09/09/21 History cholecalciferol (vitamin D3) 25 25 mcg PO QAM 12/11/19 09/09/21 History mcg (1,000 unit) tablet (Vitamin D3) metoprolol tartrate 25 mg tablet 12.5 mg PO BID 03/26/20 09/09/21 History diphenhydramine HCl 25 mg capsule 25 mg PO HS PRN cap 03/28/20 09/09/21 History (Benadryl) multivitamin 1 tab PO QAM 04/25/20 09/09/21 History cetirizine 10 mg tablet (Zyrtec) 10 mg PO QAM 01/14/21 09/09/21 History montelukast 10 mg tablet 10 mg PO DAILY 08/15/21 09/09/21 History nystatin 100,000 unit/mL oral 5 ml PO QID #140 ml 08/21/21 09/09/21 Rx suspension aspirin 81 mg tablet,delayed 81 mg PO QAM #30 tab 09/03/21 09/09/21 Rx release atorvastatin 40 mg tablet 40 mg PO QAM #30 tab 09/03/21 09/09/21 Rx apixaban 2.5 mg tablet (Eliquis) 2.5 mg PO BID #60 tab 09/05/21 09/09/21 Rx ferrous sulfate 325 mg (65 mg 325 mg PO QAM #30 tab 09/05/21 09/09/21 Rx iron) tablet,delayed release hydrocortisone 10 mg tablet 10 mg PO HS #30 tab 09/05/21 09/09/21 Rx (Cortef) hydrocortisone 10 mg tablet 20 mg PO QAM #60 tab 09/05/21 09/09/21 Rx (Cortef) pantoprazole 40 mg tablet,delayed 40 mg PO BID #60 tab 09/05/21 09/09/21 Rx release acetaminophen 325 mg tablet 650 mg PO Q6H PRN 09/09/21 09/09/21 History (Tylenol) levofloxacin 750 mg tablet 750 mg PO QPM 09/09/21 09/09/21 History prednisone 10 mg tablet See Rx Instructions .ROUTE .COMPLEX 09/09/21 09/09/21 History promethazine 25 mg tablet 25 mg PO Q6H PRN 09/09/21 09/09/21 History Patient History Medical History Cerebral infarct "Presumed old right frontal lobe cerebral infarct" - per Dec 2019 PET scan -- pt unaware/denies 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 No chemo or XRT GERD (gastroesophageal reflux disease) Hearing deficit Hiatal hernia Hx of pulmonary embolus 2019 s/p foot surgery, was on Eliquis for a few months. 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 Tinsley Surgical History H/O excision of mass History of ankle surgery RECONSTRUCTION OF LEFT ANKLE History of biopsy History of cataract surgery History of colonoscopy History of esophagogastroduodenoscopy (EGD) History of laryngoscopy Hx of bladder repair surgery Hx of foot surgery reconstructive right foot surgery (2019) Hx of hysterectomy Hx of total knee replacement RIGHT AND LEFT Hx of tubal ligation PONV (postoperative nausea and vomiting) Family History Mother Hearing loss Cancer Sister Hearing loss Cancer Other Breast cancer Family history non-contributory No family history of adverse response to anesthesia No family history of bleeding disorder Social History Smoking Status: Never smoker Second Hand Exposure: No; Hx Alcohol Use: No Hx Substance Use: No Preferred Language: Bulgarian Communication Ability: Effective 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 Beliefs That Will Affect Care: None marital status: Current Living Situation: Care Home Current Living Situation Comment: [facility] How many Children do You have: 2 Feels Safe at Home: Yes Safety Concerns: Feels Safe At This Time during the past year weight has: increased > 10 lbs Assistive Devices: Cane and Walker Assistive Devices Comment: hearing aid 1 Review of Systems Review of Systems: Unobtainable due to cognitive status Physical Exam Physical Exam: awake, confused Results & Data ([facility]) Vital Signs (Past 12 Hours) Vital Signs Temp Pulse Pulse Resp BP BP Pulse Ox 09/17/21 07:38 71 09/17/21 03:20 36.9 C 71 18 166/95 H 92 09/16/21 23:21 36.6 C 68 15 159/91 H 92 09/16/21 23:00 62 PG Care Time/CCT Total # of Minutes Spent Total Time Spent with Patient: Total time spent is greater than 50% in coordination of care (as documented) at patient's floor/unit and/or counseling patient: Coding Level of Care Code 37780 Initial Inpt Care Lvl 1 Diagnoses SHAMEKA (acute kidney injury) N17.9
[2021-09-17] MEDS: NEPHROCAPS PO SCH (11:17)
[2021-09-18 04:37] LABS: HBSAG NON-REACTIVE (NON-REACTIVE); Hepatitis B Surface Ab, Quant <5 mIU/mL (> OR = 10)
[2021-09-18] MEDS ORDERED: ACETAMINOPHEN 1000 MG/100 ML IV IV STA (06:19)
[2021-09-18] MEDS ORDERED: ACETAMINOPHEN 1000 MG/100 ML IV IV ONE (06:21)
[2021-09-18] MEDS ORDERED: EPOETIN ALFA 10,000 UNITS/ML VIAL IV ONE (07:00)
[2021-09-18] MEDS ORDERED: SODIUM CHLORIDE 0.9% 1000ML 1,000 ML IV PRN (07:00)
--- NOTE | 2021-09-18 07:11 | XRay Report ---
XR chest 1V portable CLINICAL HISTORY: New onset fever COMPARISON STUDY: Chest CT August 25, 2021. Chest radiograph September 09, 2021. FINDINGS: There is no pneumothorax. Lung volumes are diminished, unchanged. Cardiomegaly is again not ed. Perihilar and bibasilar opacities have progressed. Moderate bilateral pleural fusions are again n oted. Right pleural effusion has increased in size. Interstitial thickening suggests pulmonary edema. IMPRESSION: 1. Persistent pulmonary edema with increase in bilateral pleural effusions, likely moderate in size. 2. Increase in perihilar and bibasilar opacities which could reflect pneumonia or alveolar pulmonary edema. ACT 112: Negative or not required by law. Electronically signed by: Tyler Guerrero M.D. 09/18/2021 7:10 AM
[2021-09-18 07:33] LABS: Hematocrit (blood only) 28.2 % (37-47); Hemoglobin 9.2 g/dL (12.0-16.0); Mean Corpuscular Hemoglobin 28.8 pg (25-34); Mean Corpuscular Hgb Conc 32.6 g/dL (32-36); Mean Corpuscular Volume 88.1 fL (80-100); Mean Platelet Volume 9.6 fL (7.4-10.4); Platelet Count 281 K/uL (130-400); RDW Coefficient of Variation 19.2 % (11.5-14.5); RDW Standard Deviation 59.6 fL (36.4-46.3); White Blood Count 18.15 K/uL (4.8-10.8)
[2021-09-18 07:46] LABS: BUN Creatinine Ratio 11.8 (10-20); Creatinine Clr Calc Pharmacy 5.7 ml/min; Est GFR (African American) 3.7 ml/min; Est GFR (Non-African American) 3.2 ml/min; Potassium 5.1 mmol/L (3.5-5.1)
--- NOTE | 2021-09-18 08:02 | History & Physical Bridge Note ---
Date of Service September 18, 2021 History & Physical Bridge Note I have examined the patient, reviewed the History & Physical and in the interval since the performance of the History & Physical I have noted the following changes of clinical significance: pt with fever this am of 38.9. discussed with Dr. Glaser. Will place a temporary femoral catheter this AM for urgent dialysis. discussed with Yusra Newman via telephone for consent. discussed risks/options including bleeding/infection/blood clots/vascular inury etc.... pt unable to give consent secondary to confusion. family agreeable. will place femoral cath this am.
[2021-09-18] MEDS ORDERED: HEPARIN SOD (PORCINE) 5,000 UNITS/ML VIAL ONE (08:06)
[2021-09-18] MEDS ORDERED: PROPOFOL IV EMULSION 10 MG/ML 20 ML VIAL IV ONE ×2 (08:11→08:52)
[2021-09-18] MEDS ORDERED: LIDOCAINE 2% 2 ML VIAL/AMP(20MG/ML) INFIL ONE (08:11)
[2021-09-18] MEDS ORDERED: fentaNYL citrate 100 MCG/2 ML VIAL ONE (08:12)
--- NOTE | 2021-09-18 08:20 | Hospitalist Progress Note ---
Date of Service September 18, 2021 Assessment & Plan (1) Encephalitis: Plan: 76-year-old female with past medical history HTN, GERD, History of DVT, metastatic melanoma (on Keytruda and oral steroid taper), who presented with fever and altered mental status and admitted for metabolic encephalitis and acute kidney injury in the setting of recent discharge for presumed sepsis for fungal UTI, and subacute CVA on 09/05. SHAMEKA Secondary to ATN -Baseline creatinine 0.9-1.1. Creatinine continuing to trend up -Urine culture + for VRE faecium, Cherry but asymptomatic. -Sensitive to Daptomycin. Completed Daptomycin x5 days. -ATN may be secondary to VRE UTI/AIN -Nephrology consulted. -nivolumab/ipilimumab prior to admission. Both agents can be associated with SHAMEKA/AIN -Creatinine and GFR continue to worsen. -Surgery consulted, placed dialysis access. -Patient received first dialysis session today, scheduled for tomorrow. -Continue methylprednisolone 100 mg IV -AM BMP, monitor I&O's. Fever -Patient w/ temp 38.9 this AM. -Blood cultures, urine culture pending. -WBC 18.15 -Chest XR w/ persistent pulmonary edema w/ increase in b/l pleural effusions, increase in bibasilar and perihilar opacities could reflect pneumonia or pulmonary edema. -Started on IV Zosyn for potential pneumonia source. -AM CBC, monitor vitals. Encephalitis/delirium - resolved -AMS and fever to 38.1 in ED. -Patient received 1 dose of vancomycin in the ER. -Initially thought to be due to Keytruda b/c of side effect profile. -Dr. Herrera of oncology consulted: -Doubtful Keytruda was responsible for encephalitis, as she received her last dose long before for her symptoms started. -Suspects hypophysitis. -AM Cortisol low at 2.29, FSH and LH low at 1.72 & <0.20, respectively. TSH 1.72 WNL. GH and ACTH still pending. -Infectious disease consulted: -Reduced anti-inflammatory regimen may have led to resurgence of encephalitis along w/ AMS. Concern of Hypophysitis - Continue methylprednisolone 100 mg IV - see above under delirium VRE UTI -Urine culture as above (VRE, cherry). -Completed 5 days of Daptomycin. -Monitor I&O's, vitals. HTN -Holding Norvasc and metoprolol. Hx of DVT -Patient on heparin 5000 units q12h for DVT prophylaxis - holding for procedure in am -Holding home Eliquis. Metastatic melanoma -Patient follows with hematology. On Keytruda and hydrocortisone at home. Code: Full code Dispo: Med-Surg with telemetry FEN/GI: Regular diet. DVT Prophylaxis: Heparin 5000 units every 12 hours SQ (2) SHAMEKA (acute kidney injury): (3) Sepsis: (4) Anemia: (5) Leukocytosis: (6) Adrenal suppression: (7) Cerebrovascular accident (CVA): (8) Fever of unknown origin: (9) Chronic kidney disease, stage III (moderate): (10) History of DVT (deep vein thrombosis): Admission and Anticipated Discharge Date Admission Date: September 09, 2021 Supervising Physician Co-Signing Physician Notes Resident Physician Supervision Note: I independently interviewed and examined the patient and verified the yousif history and physical, reviewed labs and image studies and agree with resident Dr. Guevara findings and care plan. Subjective Patient doing the same this morning. Feeling well but anxious about dialysis. Denies fevers, chills, shortness of breath, chest pain. Review of Systems Constitutional: as per Subjective / HPI Physical Exam Constitutional: WD/WN, vitals as above Eyes: PERRL, conjunctivae normal, anicteric sclerae Respiratory: normal respiratory effort, lungs clear to auscultation Cardiovascular: Rate/Rhythm: regular rate and regular rhythm Heart Sounds: normal S1 and normal S2 Extremities: + edema (B/l lower extremities 1+, R arm swelling. ) Gastrointestinal (Abdomen): normal bowel sounds, soft, nontender, no hepatosplenomegaly Results & Data Results & Data ([facility]) Vital Signs (Past 12 Hours) Vital Signs Temp Pulse Pulse Resp BP BP Pulse Ox 09/18/21 07:56 36.9 C 102 H 20 119/52 L 91 09/18/21 06:16 38.9 C H 09/18/21 03:35 36.9 C 73 18 156/82 H 96 09/17/21 23:21 36.6 C 77 16 166/88 H 93 09/17/21 23:00 66 Resident Activity Tracking Resident Involvement: Resident Care Provided Care Provided: Adult Hospital Medicine (1) Anemia Anemia type: unspecified type Qualified Code(s): D64.9 - Anemia, unspecified (2) Leukocytosis Leukocytosis type: unspecified Qualified Code(s): D72.829 - Elevated white blood cell count, unspecified (3) Sepsis Sepsis acute organ dysfunction status: unspecified Sepsis type: sepsis due to unspecified organism Qualified Code(s): A41.9 - Sepsis, unspecified organism
[2021-09-18] MEDS ORDERED: ATROPINE SULFATE 0.1 MG/ML 10ML SYR IV PRN (08:24)
[2021-09-18] MEDS ORDERED: ONDANSETRON INJ 2 MG/ML 2 ML VIAL IV PRN (08:24)
[2021-09-18] MEDS ORDERED: fentaNYL citrate 100 MCG/2 ML VIAL IV PRN (08:24)
--- NOTE | 2021-09-18 08:24 | Anesthesiology Consultation ---
Date of Service September 18, 2021 Assessment & Plan (1) Encounter for pre-operative examination: Chart Review Chart Review: Acceptable Risk for Surgery History Surgery Operation Date: 09/18/21 08:15 Proposed Procedures p Tunneled Hemodialysis Catheter Insertion - Juan Abbott, Height/Weight Height: 5 ft 7 in Weight: 106.3 kg Allergies Allergy/AdvReac Type Severity Reaction Status Date / Time tramadol Allergy Mild NASUEA/CONF Verified 09/09/21 19:34 USION cephalexin [From Keflex] AdvReac Mild upset Verified 09/09/21 19:34 stomach Medications Home Medications Medication Instructions Recorded Confirmed Last Taken amlodipine 5 mg tablet (Norvasc) 5 mg PO QAM 12/05/18 09/09/21 09/09/21 cholecalciferol (vitamin D3) 25 25 mcg PO QAM 12/11/19 09/09/21 09/09/21 mcg (1,000 unit) tablet (Vitamin D3) metoprolol tartrate 25 mg tablet 12.5 mg PO BID 03/26/20 09/09/21 09/09/21 08:30 diphenhydramine HCl 25 mg capsule 25 mg PO HS PRN cap 03/28/20 09/09/21 01/14/21 07:00 (Benadryl) multivitamin 1 tab PO QAM 04/25/20 09/09/21 09/09/21 cetirizine 10 mg tablet (Zyrtec) 10 mg PO QAM 01/14/21 09/09/21 09/09/21 montelukast 10 mg tablet 10 mg PO DAILY 08/15/21 09/09/21 09/09/21 nystatin 100,000 unit/mL oral 5 ml PO QID #140 ml 08/21/21 09/09/21 09/09/21 12:30 suspension aspirin 81 mg tablet,delayed 81 mg PO QAM #30 tab 09/03/21 09/09/21 09/09/21 release atorvastatin 40 mg tablet 40 mg PO QAM #30 tab 09/03/21 09/09/21 09/09/21 apixaban 2.5 mg tablet (Eliquis) 2.5 mg PO BID #60 tab 09/05/21 09/09/21 08:30 ferrous sulfate 325 mg (65 mg 325 mg PO QAM #30 tab 09/05/21 09/09/21 09/09/21 iron) tablet,delayed release hydrocortisone 10 mg tablet 10 mg PO HS #30 tab 09/05/21 09/09/21 09/08/21 (Cortef) hydrocortisone 10 mg tablet 20 mg PO QAM #60 tab 09/05/21 09/09/21 09/09/21 (Cortef) pantoprazole 40 mg tablet,delayed 40 mg PO BID #60 tab 09/05/21 09/09/21 09/09/21 08:30 release acetaminophen 325 mg tablet 650 mg PO Q6H PRN 09/09/21 09/09/21 09/09/21 13:30 (Tylenol) levofloxacin 750 mg tablet 750 mg PO QPM 09/09/21 09/09/21 09/08/21 prednisone 10 mg tablet See Rx Instructions .ROUTE .COMPLEX 09/09/21 09/09/21 09/09/21 1ST DAY OF 20 MG promethazine 25 mg tablet 25 mg PO Q6H PRN 09/09/21 09/09/21 Unknown Active Medications Generic Name Dose Route Start Last Admin Trade Name Freq PRN Reason Stop Dose Admin Acetaminophen 650 mg 09/09/21 21:20 09/16/21 20:57 Acetaminophen 325 Mg Tab PO 10/09/21 21:19 650 mg Q4H PRN Administration Pain or Fever Aspirin 81 mg 09/10/21 09:00 09/17/21 09:39 Aspirin 81 Mg Ectab PO 10/10/21 08:59 81 mg QAM DAVID Administration Heparin Sodium (Porcine) 5,000 units 09/09/21 21:20 09/17/21 09:39 Heparin Sod 5,000 Unit/0.5 Ml Vial SQ 10/09/21 21:19 5,000 units Q12 DAVID Administration Methylprednisolone 100 mg/ 1.6 mls @ 1.5 mls/min 09/13/21 09:00 09/17/21 09:40 Syringe IV 10/13/21 08:59 1.5 mls/min DAILY DAVID Administration Metoprolol Tartrate 12.5 mg 09/09/21 21:20 09/09/21 22:37 Metoprolol Tartrate 25 Mg Tab PO 10/09/21 21:19 12.5 mg BID DAVID Administration Montelukast Sodium 10 mg 09/10/21 09:00 09/17/21 09:40 Montelukast Sodium 10 Mg Tablet PO 10/10/21 08:59 10 mg DAILY DAVID Administration Multivitamins 1 tab 09/10/21 09:00 09/17/21 09:39 Multivitamin Tab PO 10/10/21 08:59 1 tab QAM DAVID Administration Pantoprazole Sodium 40 mg 09/09/21 21:20 09/17/21 20:43 Pantoprazole 40 Mg Tab PO 10/09/21 21:19 40 mg BID DAVID Administration Vitamin B Complex/Folic Acid 1 cap 09/17/21 10:30 09/17/21 11:17 Nephrocaps PO 10/17/21 10:29 1 cap QAM DAVID Administration NPO Date Last Intake of Fluids: 09/17/21 Time Last Intake of Fluids: 21:00 Date Last Intake of Solids: 09/17/21 Time Last Intake of Solids: 21:00 Past Medical History Medical History Cerebral infarct "Presumed old right frontal lobe cerebral infarct" - per Dec 2019 PET scan -- pt unaware/denies 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 No chemo or XRT GERD (gastroesophageal reflux disease) Hearing deficit Hiatal hernia Hx of pulmonary embolus 2019 s/p foot surgery, was on Eliquis for a few months. 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 Tinsley Past Family History Family History Mother Hearing loss Cancer Sister Hearing loss Cancer Other Breast cancer Family history non-contributory No family history of adverse response to anesthesia No family history of bleeding disorder Past Surgical History Surgical History H/O excision of mass History of ankle surgery RECONSTRUCTION OF LEFT ANKLE History of biopsy History of cataract surgery History of colonoscopy History of esophagogastroduodenoscopy (EGD) History of laryngoscopy Hx of bladder repair surgery Hx of foot surgery reconstructive right foot surgery (2019) Hx of hysterectomy Hx of total knee replacement RIGHT AND LEFT Hx of tubal ligation PONV (postoperative nausea and vomiting) Social History Smoking Status: Never smoker tobacco type: cigarettes Hx Alcohol Use: No Alcohol type: beer alcohol intake frequency: holidays/special occasions only Hx Substance Use: No substance use type: does not use Physical Exam Vital Signs Last Vital Signs Temp 36.9 C 09/18/21 07:56 Pulse 102 H 09/18/21 07:56 Resp 20 09/18/21 07:56 BP 119/52 L 09/18/21 07:56 Pulse Ox 91 09/18/21 07:56 Testing Laboratory Results 09/18/21 07:03 09/18/21 07:03 PT 11.4 Seconds (9.0-12.0) 09/15/21 05:20 INR 1.1 (0.9-1.1) 09/15/21 05:20 APTT 32.2 Seconds (21.0-31.0) H 09/09/21 17:08 Urine Color Red 09/09/21 19:10 Urine Appearance Turbid (Clear) A 09/09/21 19:10 Urine pH 5.5 (4.5-7.5) 09/09/21 19:10 Ur Specific Mcgregor 1.020 (1.000-1.030) 09/09/21 19:10 Urine Protein 3+ (Negative) H 09/09/21 19:10 Urine Glucose (UA) Trace (Negative) H 09/09/21 19:10 Urine Ketones Trace (Negative) H 09/09/21 19:10 Urine Nitrite Positive (Negative) A 09/09/21 19:10 Ur Leukocyte Esterase Trace (Negative) H 09/09/21 19:10 Urine RBC >30 /hpf (0-4) H 09/09/21 19:10 Urine WBC >30 /hpf (0-5) H 09/09/21 19:10 Ur Epithelial Cells 0-5 /lpf (0-5) 09/09/21 19:10 09/09/21 17:08 Aerobic Blood Culture - Final Blood No growth in Aerobic bottle after 5 days. Anaerobic Blood Culture - Final No growth in Anaerobic bottle after 5 days. 09/09/21 17:35 Aerobic Blood Culture - Final Blood No growth in Aerobic bottle after 5 days. Anaerobic Blood Culture - Final No growth in Anaerobic bottle after 5 days. 09/09/21 19:10 Urine Culture - Final Urine,Indwelling Cath Enterococcus faecium VRE Chrery albicans/dubliniensis
--- NOTE | 2021-09-18 08:43 | Nephrology Progress Note ---
Date of Service September 18, 2021 Assessment & Plan (1) SHAMEKA (acute kidney injury): Plan: * Patient had been on nivolumab/ipilimumab prior to admission. Both agents can be associated with SHAMEKA/AIN. Cr continues to rise despite IV Solumedrol * Urine sediment suggestive of UTI or AIN * Agree w/ Solumedrol * Patient is nonoliguric. Cr continues to rise. EGFR is down to 3 cc/min. Surgery has placed R femoral temporary dialysis catheter to allow initiation of HD * 1st run HD orders placed in EMR and HD RN notified. HD scheduled for 4 pm today * Will plan for 2nd treatment tomorrow * Monitor PRP (2) Melanoma: Plan: * Discussed medical course w/ Dr. Herrera by telephone 09/14/21: Ms. Newman had a good clinical response to nivolumab/ipilimumab (3) Fever: Plan: * h/o VRE & marsha in urine * Recommend changing out rose catheter * Await blood and urine culture results * Continue IV Zosyn (4) Chronic kidney disease, stage III (moderate): Plan: * CKD stage G3a/A3 (moderate impairment). Baseline Cr 1-1.3 mg/dL w/ EGFR 58c c/min. UPCR 0.5. Renal US revealed bilateral cortical atrophy c/w microvascular disease Admission and Anticipated Discharge Date Admission Date: September 09, 2021 Subjective Ms. Newman was evaluated in her hospital room this morning. She was febrile overnight therefore instead of TCC placement, surgery inserted a temporary R femoral dialysis catheter. Ms. Newman currently denies dyspnea or angina. Review of Systems Constitutional: + weakness Eyes: no problem reported Ear, Nose, Mouth, Throat: no problem reported Respiratory: no dyspnea Cardiovascular: no chest pain Gastrointestinal: no abdominal pain, no diarrhea/loose stools and no melena Genitourinary: no dysuria Physical Exam Constitutional: not in distress Eyes: PERRL, conjunctivae normal, anicteric sclerae ENMT: external ear and nose normal, oropharynx normal Neck: trachea midline, no thyromegaly Respiratory: normal respiratory effort, lungs clear to auscultation Cardiovascular: Rate/Rhythm: regular rate and regular rhythm Extremities: + edema (1+ pretibial pitting edema) R femoral temporary dialysis catheter is in place w/ clean dry dressing Gastrointestinal (Abdomen): normal bowel sounds, soft, nontender, no hepatosplenomegaly Neurologic: awake; not confused Results & Data ([facility]) Vital Signs (Past 12 Hours) Vital Signs Temp Pulse Pulse Resp BP BP Pulse Ox 09/18/21 07:56 36.9 C 102 H 20 119/52 L 91 09/18/21 06:16 38.9 C H 09/18/21 03:35 36.9 C 73 18 156/82 H 96 09/17/21 23:21 36.6 C 77 16 166/88 H 93 09/17/21 23:00 66 Laboratory Results Selected Entries 09/18/21 06:16 Temperature 38.9 C H Laboratory Tests 09/14/21 09/16/21 09/17/21 06:04 06:16 06:30 WBC 12.01 H Hgb 8.6 L Hct 26.2 L Plt Count 322 Sodium Potassium Chloride Carbon Dioxide BUN Creatinine Glucose Calcium Transferrin % Sat 65 H Ferritin 801.3 H Albumin 2.5 L 09/17/21 09/17/21 09/18/21 06:30 07:38 07:03 WBC 18.15 H Hgb 9.2 L Hct 28.2 L Plt Count 281 Sodium 134 L Potassium Pending Chloride 102 Carbon Dioxide 18 L BUN 118 H Creatinine 9.71 H* D Glucose 79 Calcium 8.2 L Transferrin % Sat Ferritin Albumin 09/18/21 07:03 WBC Hgb Hct Plt Count Sodium 135 L Potassium 5.1 Chloride 103 Carbon Dioxide 16 L BUN 122 H Creatinine 10.37 H* D Glucose Calcium 8.0 L Transferrin % Sat Ferritin Albumin PG Care Time/CCT Total # of Minutes Spent Total Time Spent with Patient: Total time spent is greater than 50% in coordination of care (as documented) at patient's floor/unit and/or counseling patient: Coding Level of Care Code 05613 Subseq Hosp Care Lvl 3 Diagnoses SHAMEKA (acute kidney injury) N17.9 Melanoma C43.9 Chronic kidney disease, stage III (moderate) N18.30 Fever R50.9 Fever type: unspecified (1) Fever Fever type: unspecified Qualified Code(s): R50.9 - Fever, unspecified
[2021-09-18] MEDS ORDERED: ceFAZolin 330 MG/ML 1 GM VIAL ONE ×2 (08:46→08:47)
[2021-09-18] MEDS: ASPIRIN 81 MG ECTAB PO SCH (08:49)
[2021-09-18] MEDS: MONTELUKAST SODIUM 10 MG TABLET PO SCH (08:49)
[2021-09-18] MEDS: NEPHROCAPS PO SCH (08:50)
[2021-09-18] MEDS: MULTIVITAMIN TAB PO SCH (08:50)
[2021-09-18] MEDS: PANTOprazole 40 MG TAB PO SCH ×2 (08:50→22:52)
[2021-09-18] MEDS: methylPREDNISolone 100 MG in SYRINGE 0 ML IV SCH (08:50)
[2021-09-18] MEDS ORDERED: LIDOCAINE 1% LOCAL 20 ML VIAL INJ ONE (09:21)
--- NOTE | 2021-09-18 09:37 | Operative Report ---
PG Post Operative Report Pre & Post Diagnosis Operation Date: 09/18/21 08:15 Pre-Op Diagnosis: Acute Kidney Injury Post-Op Diagnosis: Acute Kidney Injury I identified the patient and participated in the time-out.: Yes Procedure Operation Date: 09/18/21 08:15 Actual Procedures p Insertion of Temporary Dialysis Catheter, Right Femoral Approach, Ultrasound Localization of Right Femoral Artery, Fluroscopy for Positioning(Right) - Juan Abbott DO Surgeon Juan Abbott DO Weight Loss Counselor n/a Estimated Blood Loss 10 Findings Consistent with Post-Op Diagnosis Specimens none Description of Procedure After informed consent was obtained the patient was taken to the operating room and placed in supine position. After adequate sedation was obtained the patient's right leg ,groin and lower abdomen were sterilely prepped and draped in usual fashion. I was unable to palpate the right femoral artery. We therefore used ultrasound to localize the right femoral vein. Several cc of 1% lidocaine were used to create a skin wheal. An 18-gauge finder needle was then used to access the right femoral vein. A Glidewire was advanced through the needle under fluoroscopic guidance into the inferior vena cava. The needle was subsequently removed and a small skin incision was made over the Glidewire. The vein was then serially dilated. A 12 Stateless dual-lumen 20 cm temporary hemodialysis catheter was advanced over the Glidewire. The wire was subsequently removed. We are able to return dark venous blood from both chambers easily. Both were then flushed with about 3 cc of heparin. The catheter was secured to the skin using 3-0 nylon and a sterile dressing was applied. The patient tolerated the procedure well. She was awakened and transferred to recovery in stable condition. I attest to the content of the Intraoperative Record and any orders documented therein. Any exceptions are noted below.
[2021-09-18] MEDS ORDERED: PIPERACILLIN/TAZOBACTAM 3.375 GM in DEXTROSE 5% 100 ML IV ONE (09:45)
--- NOTE | 2021-09-18 09:46 | Anesthesiology Progress Note ---
Date of Service September 18, 2021 Anesthesia Post Procedure Vital Signs Vital Signs: Temp Pulse Pulse Pulse Resp BP BP 09/18/21 09:28 36.7 C 90 18 110/54 L 09/18/21 07:56 36.9 C 102 H 20 119/52 L 09/18/21 06:16 38.9 C H 09/18/21 03:35 36.9 C 73 18 156/82 H 09/17/21 23:21 36.6 C 77 16 166/88 H 09/17/21 23:00 66 09/17/21 19:15 36.3 C L 72 18 166/88 H 09/17/21 16:12 36.5 C 71 19 161/81 H 09/17/21 14:54 66 09/17/21 11:58 36.4 C L 70 18 148/85 H Pulse Ox 09/18/21 09:28 92 09/18/21 07:56 91 09/18/21 06:16 09/18/21 03:35 96 09/17/21 23:21 93 09/17/21 23:00 09/17/21 19:15 92 09/17/21 16:12 95 09/17/21 14:54 09/17/21 11:58 92 Pain Intensity Head: Pain Intensity: 5 Transfer of Care Handoff Completed per policy Notes Mental Status: alert / awake / arousable Patient Amnestic to Procedure: Yes Nausea / Vomiting: adequately controlled Pain: adequately controlled Airway Patency, RR, SpO2: stable & adequate BP & HR: stable & adequate Hydration State: stable & adequate Anesthetic Complications: no major complications apparent
[2021-09-18] MEDS ORDERED: PIPERACILLIN/TAZOBACTAM 3.375 GM in DEXTROSE 5% 100 ML IV SCH (18:00)
[2021-09-18] MEDS: PIPERACILLIN/TAZOBACTAM 4.5 GM in DEXTROSE 5% 100 ML IV SCH (18:16)
[2021-09-18] MEDS ORDERED: ACETAMINOPHEN 10MG/ML PEDIATRIC DOSING IV STA (22:56)
[2021-09-18] MEDS ORDERED: ACETAMINOPHEN 1,000 MG/100 ML VIAL IV ONE (23:15)
[2021-09-19] MEDS: PIPERACILLIN/TAZOBACTAM 4.5 GM in DEXTROSE 5% 100 ML IV SCH ×2 (06:36→18:03)
[2021-09-19 06:37] LABS: Hematocrit (blood only) 24.7 % (37-47); Hemoglobin 7.9 g/dL (12.0-16.0); Mean Corpuscular Hemoglobin 28.3 pg (25-34); Mean Corpuscular Volume 88.5 fL (80-100); Mean Platelet Volume 9.3 fL (7.4-10.4); Platelet Count 178 K/uL (130-400); RDW Coefficient of Variation 19.3 % (11.5-14.5); RDW Standard Deviation 61.4 fL (36.4-46.3); Red Blood Count 2.79 M/uL (4.2-5.4); White Blood Count 10.26 K/uL (4.8-10.8)
--- NOTE | 2021-09-19 06:37 | Hospitalist Progress Note ---
Date of Service September 19, 2021 Assessment & Plan (1) Encephalitis: Plan: 76-year-old female with past medical history HTN, GERD, History of DVT, metastatic melanoma (on Keytruda and oral steroid taper), who presented with fever and altered mental status and admitted for metabolic encephalitis and acute kidney injury in the setting of recent discharge for presumed sepsis for fungal UTI, and subacute CVA on 09/05. SHAMEKA Secondary to ATN - now on dialysis -Baseline creatinine 0.9-1.1. Creatinine continuing to trend up -Urine culture + for VRE faecium, Cherry but asymptomatic. -Sensitive to Daptomycin. Completed Daptomycin x5 days. -ATN may be secondary to VRE UTI/AIN -Nephrology consulted. -nivolumab/ipilimumab prior to admission. Both agents can be associated with SHAMEKA/AIN -Creatinine and GFR continue to worsen. -Surgery consulted, placed dialysis access. -Patient received second dialysis session today. Third session tomorrow AM. -Consider slow taper of steroid. -AM BMP, monitor I&O's. Fever - 09/18/2021 -Patient w/ temp 38.8 last night. -Blood cultures w/ no growth after 24 hours, urine culture pending. -WBC 10.26 this AM -Chest XR w/ persistent pulmonary edema w/ increase in b/l pleural effusions, increase in bibasilar and perihilar opacities could reflect pneumonia or pulmonary edema. -Started on IV Zosyn for potential pneumonia source. -AM CBC, monitor vitals. Encephalitis/delirium - resolved -AMS and fever to 38.1 in ED. -Patient received 1 dose of vancomycin in the ER. -Initially thought to be due to Keytruda b/c of side effect profile. -Dr. Herrera of oncology consulted: -Doubtful Keytruda was responsible for encephalitis, as she received her last dose long before for her symptoms started. -Suspects hypophysitis. -AM Cortisol low at 2.29, FSH and LH low at 1.72 & <0.20, respectively. TSH 1.72 WNL. GH and ACTH still pending. -Infectious disease consulted: -Reduced anti-inflammatory regimen may have led to resurgence of encephalitis along w/ AMS. Concern of Hypophysitis - Continue methylprednisolone 100 mg IV - see above under delirium VRE UTI -Urine culture as above (VRE, cherry). -Completed 5 days of Daptomycin. -Monitor I&O's, vitals. HTN -Holding Norvasc and metoprolol. Hx of DVT -Patient on heparin 5000 units q12h for DVT prophylaxis - holding for procedure in am -Holding home Eliquis. Metastatic melanoma -Patient follows with hematology. On Keytruda and hydrocortisone at home. Code: Full code Dispo: Med-Surg with telemetry FEN/GI: Regular diet. DVT Prophylaxis: Heparin 5000 units every 12 hours SQ (2) SHAMEKA (acute kidney injury): (3) Sepsis: (4) Anemia: (5) Leukocytosis: (6) Adrenal suppression: (7) Cerebrovascular accident (CVA): (8) Fever of unknown origin: (9) Chronic kidney disease, stage III (moderate): (10) History of DVT (deep vein thrombosis): Admission and Anticipated Discharge Date Admission Date: September 09, 2021 Supervising Physician Co-Signing Physician Notes Resident Physician Supervision Note: I independently interviewed and examined the patient and verified the yousif history and physical, reviewed labs and image studies and agree with resident Dr. Guevara findings and care plan. Subjective Patient seen at the bedside, saying she was not feeling too well today. She was unable to express herself as much today, only answering with short answers. Review of Systems Constitutional: as per Subjective / HPI Physical Exam Constitutional: WD/WN, vitals as above Eyes: PERRL, conjunctivae normal, anicteric sclerae Respiratory: normal respiratory effort, lungs clear to auscultation Cardiovascular: Rate/Rhythm: regular rate and regular rhythm Heart Sounds: normal S1 and normal S2 Extremities: + edema (B/l lower extremities 1+, R arm swelling. ) Gastrointestinal (Abdomen): normal bowel sounds, soft, nontender, no hepatosplenomegaly Results & Data Results & Data ([facility]) Vital Signs (Past 12 Hours) Vital Signs Temp Pulse Pulse Pulse Resp BP BP 09/19/21 04:20 37.7 C H 92 H 24 119/63 09/19/21 01:06 37.3 C 09/18/21 22:53 38.8 C H 100 H 20 144/81 H 09/18/21 22:25 36.8 C 107 H 09/18/21 22:00 103 H 133/73 09/18/21 21:40 116 H 114/96 09/18/21 21:20 95 H 157/84 H 09/18/21 21:00 91 H 149/83 H 09/18/21 20:40 93 H 157/84 H 09/18/21 20:20 107 H 140/86 09/18/21 20:19 36.8 C 95 H BP Pulse Ox 09/19/21 04:20 95 09/19/21 01:06 09/18/21 22:53 93 09/18/21 22:25 155/88 H 09/18/21 22:00 09/18/21 21:40 09/18/21 21:20 09/18/21 21:00 09/18/21 20:40 09/18/21 20:20 09/18/21 20:19 Resident Activity Tracking Resident Involvement: Resident Care Provided Care Provided: Adult Hospital Medicine (1) Anemia Anemia type: unspecified type Qualified Code(s): D64.9 - Anemia, unspecified (2) Leukocytosis Leukocytosis type: unspecified Qualified Code(s): D72.829 - Elevated white blood cell count, unspecified (3) Sepsis Sepsis acute organ dysfunction status: unspecified Sepsis type: sepsis due to unspecified organism Qualified Code(s): A41.9 - Sepsis, unspecified organism
[2021-09-19] MEDS ORDERED: SODIUM CHLORIDE 0.9% 1000ML 1,000 ML IV PRN (07:00)
[2021-09-19 07:28] LABS: BUN Creatinine Ratio 10.4 (10-20); Calcium 7.5 mg/dl (8.5-10.1); Creatinine Clr Calc Pharmacy 6.8 ml/min; Est GFR (African American) 4.7 ml/min; Potassium 4.8 mmol/L (3.5-5.1)
[2021-09-19 07:33] LABS: Adrenocorticotropic Hormone <5 pg/mL (6-50); Growth Hormone <0.1 ng/mL (<=7.1)
--- NOTE | 2021-09-19 08:36 | Nephrology Progress Note ---
Date of Service September 19, 2021 Assessment & Plan (1) SHAMEKA (acute kidney injury): Plan: * Patient had been on nivolumab/ipilimumab prior to admission. Both agents can be associated with SHAMEKA/AIN. Kidney function progressively worsened despite IV Solumedrol * Urine sediment was suggestive of UTI or AIN * Consider slow taper of steroid therapy * 1st run HD completed 09/19/21 * Will plan HD today for continued urea clearance * Will schedule 3rd treatment for Sat am and then monitor kidney function over weekend * Monitor PRP (2) Melanoma: Plan: * Discussed medical course w/ Dr. Herrera by telephone 09/14/21: Ms. Newman had a good clinical response to nivolumab/ipilimumab (3) Fever: Plan: * h/o VRE & marsha in urine * Advised full time staff interpreter to obtain urine for culture and change out rose catheter this am * Await urine culture results * Blood cultures 09/18/21 - negative for bacterial or fungal growth * Consider holding antibiotics (4) Chronic kidney disease, stage III (moderate): Plan: * CKD stage G3a/A3 (moderate impairment). Baseline Cr 1-1.3 mg/dL w/ EGFR 58cc/min. UPCR 0.5. Renal US revealed bilateral cortical atrophy c/w microvascular disease Admission and Anticipated Discharge Date Admission Date: September 09, 2021 Subjective Ms. Newman was evaluated in her hospital room this morning. She awakens to voice but does not follow commands. She responds "OK" to all questions. She does not have her hearing aids in this morning. Ms. Newman was dialyzed yesterday for 2 hrs via temporary R femoral HD catheter. Only 1L UF obtained. There were no complications Review of Systems Constitutional: + weakness Eyes: no problem reported Ear, Nose, Mouth, Throat: no problem reported Respiratory: no dyspnea Cardiovascular: no chest pain Gastrointestinal: no abdominal pain, no diarrhea/loose stools and no melena Genitourinary: no dysuria Physical Exam Constitutional: not in distress Eyes: PERRL, conjunctivae normal, anicteric sclerae ENMT: external ear and nose normal, oropharynx normal Neck: trachea midline, no thyromegaly Respiratory: normal respiratory effort, lungs clear to auscultation Cardiovascular: Rate/Rhythm: regular rate and regular rhythm Extremities: + edema (1+ dependent edema) Gastrointestinal (Abdomen): normal bowel sounds, soft, nontender, no hepatosplenomegaly Neurologic: awake; not confused Results & Data ([facility]) Vital Signs (Past 12 Hours) Vital Signs Temp Pulse Pulse Pulse Resp BP BP 09/19/21 04:20 37.7 C H 92 H 24 119/63 09/19/21 01:06 37.3 C 09/18/21 22:53 38.8 C H 100 H 20 144/81 H 09/18/21 22:25 36.8 C 107 H 09/18/21 22:00 103 H 133/73 09/18/21 21:40 116 H 114/96 09/18/21 21:20 95 H 157/84 H 09/18/21 21:00 91 H 149/83 H 09/18/21 20:40 93 H 157/84 H BP Pulse Ox 09/19/21 04:20 95 09/19/21 01:06 09/18/21 22:53 93 09/18/21 22:25 155/88 H 09/18/21 22:00 09/18/21 21:40 09/18/21 21:20 09/18/21 21:00 09/18/21 20:40 Laboratory Results 09/18/21 Blood Cx: NGTD x2. Fungal smear was negative PG Care Time/CCT Total # of Minutes Spent Total Time Spent with Patient: Total time spent is greater than 50% in coordination of care (as documented) at patient's floor/unit and/or counseling patient: Coding Diagnoses SHAMEKA (acute kidney injury) N17.9 Melanoma C43.9 Fever R50.9 Fever type: unspecified Chronic kidney disease, stage III (moderate) N18.30 (1) Fever Fever type: unspecified Qualified Code(s): R50.9 - Fever, unspecified
[2021-09-19] MEDS: MULTIVITAMIN TAB PO SCH (09:12)
[2021-09-19] MEDS: MONTELUKAST SODIUM 10 MG TABLET PO SCH (09:13)
[2021-09-19] MEDS: PANTOprazole 40 MG TAB PO SCH ×3 (09:13→21:52)
[2021-09-19] MEDS: methylPREDNISolone 100 MG in SYRINGE 0 ML IV SCH (09:30)
[2021-09-19] MEDS: ASPIRIN 81 MG ECTAB PO SCH (10:51)
[2021-09-19] MEDS: NEPHROCAPS PO SCH (10:51)
--- NOTE | 2021-09-19 23:17 | Communication Note ---
Date of Service: September 19, 2021 I was contacted by RN at approximately 10:40 PM on 09/19/2021 with concerns that patient was bleeding from her right femoral vein temporary hemodialysis cathet er. She notes that there was some bleeding issues since her dressing was changed by the IV team around 8:00 PM. Despite holding pressure she noted that the area around the catheter was still bleeding and the patient was complaining of pain. Patient's medicines were reviewed and she is taking aspirin 81 mg daily and subcutaneous heparin for DVT prevention however this is on hold. No anticoagula nts were noted on patient's medication regimen. The patient's vital signs were reviewed and her most recent blood pressure was at approximately 9:00 PM was 137/75 with a pulse of 82. Respirations are 20 nonlabored and she was noted to be afebrile. Labs this morning showed white blood cell count and platelet count were both normal. Her hemoglobin and hematocrit were 7.9 and 24.7. Sodium and potassium were noted to be normal. Her BUN and creatinine were 89 and 8.5. Physical exam there is some blood clot in the patient's right groin near the catheter insertion site. The dressing was removed and the clot was cleaned off. After the clot was cleaned off the catheter insertion site was inspected and I did not appreciate any bleeding. There is no evidence of any expanding hematoma. The patient's foot was examined and was noted be warm and well- perfused. Her legs were quite edematous and therefore I could not palpate pedal pulses. I was however able to Doppler both posterior tibial and dorsalis pedis pulses easily in this extremity. Is there is no active bleeding noted the catheter site was redressed. I discussed with the nurse who noted it may be beneficial to have patient lay flat on her back and limit movement of her leg for the present time. I did discuss with her that is not entirely uncommon to have some oozing from the catheter insertion site in patients with renal failure as her platelets are sometimes dysfunctional. I instructed the RN to call me should any other bleeding concerns arise.
[2021-09-20 06:09] LABS: Hemoglobin 6.7 g/dL (12.0-16.0); Mean Corpuscular Hemoglobin 28.8 pg (25-34); Mean Corpuscular Hgb Conc 31.9 g/dL (32-36); Mean Corpuscular Volume 90.1 fL (80-100); Mean Platelet Volume 10.3 fL (7.4-10.4); Platelet Count 183 K/uL (130-400); RDW Coefficient of Variation 19.1 % (11.5-14.5); RDW Standard Deviation 63.1 fL (36.4-46.3); Red Blood Count 2.33 M/uL (4.2-5.4); White Blood Count 7.67 K/uL (4.8-10.8)
[2021-09-20 06:41] LABS: BUN Creatinine Ratio 9.9 (10-20); Creatinine Clr Calc Pharmacy 6.9 ml/min; Est GFR (African American) 4.8 ml/min; Est GFR (Non-African American) 4.1 ml/min
[2021-09-20] MEDS ORDERED: EPOETIN ALFA 10,000 UNITS/ML VIAL IV ONE (07:00)
[2021-09-20] MEDS ORDERED: SODIUM CHLORIDE 0.9% 1000ML 1,000 ML IV PRN (07:00)
--- NOTE | 2021-09-20 07:32 | Hospitalist Progress Note ---
Date of Service September 20, 2021 Assessment & Plan (1) Encephalitis: Plan: 76-year-old female with past medical history HTN, GERD, History of DVT, metastatic melanoma (on Keytruda and oral steroid taper), who presented with fever and altered mental status and admitted for metabolic encephalitis and acute kidney injury in the setting of recent discharge for presumed sepsis for fungal UTI, and subacute CVA on 09/05. SHAMEKA Secondary to ATN -Baseline creatinine 0.9-1.1. Creatinine continuing to trend up -Urine culture + for VRE faecium, Cherry but asymptomatic. -Sensitive to Daptomycin. Completed Daptomycin x5 days. -ATN may be secondary to VRE UTI/AIN from immunotherapy -Nephrology consulted. -nivolumab/ipilimumab prior to admission. Both agents can be associated with SHAMEKA/AIN -Creatinine and GFR continue to worsen. -Surgery consulted, placed dialysis access. -Patient received third dialysis session today. Plan to install tunneled dialysis catheter Wednesday if no sign of renal improvement by tomorrow. -Per nephrology, consider slow taper of steroid. Reviewed with oncology, who initially recommended IV methylprednisone. Recommended maintain current dose for now. -AM BMP, monitor I&O's. Anemia -Hgb 6.7 this morning, down from 7.9 yesterday. -3 bags pRBC ordered. Type and screen completed. Will transfuse 2 bags (hold 3rd) pending obtained consent from son (primary contact--no POA on file). -Monitor post transfusion, AM CBC labs Fever-resolved -Patient w/ temp 38.8 on 09/18. -WBC 10.26 this AM -Blood cultures resulted: negative, urine culture pending. -Chest XR w/ persistent pulmonary edema w/ increase in b/l pleural effusions, increase in bibasilar and perihilar opacities could reflect pneumonia or pulmonary edema. -Started on IV Zosyn for potential pneumonia source. MRSA nares neg. -AM CBC, monitor vitals. Encephalitis/delirium - resolved -AMS and fever to 38.1 in ED. -Patient received 1 dose of vancomycin in the ER. -Initially thought to be due to Keytruda b/c of side effect profile. -Dr. Herrera of oncology consulted: -Doubtful Keytruda was responsible for encephalitis, as she received her last dose long before for her symptoms started. -Suspects hypophysitis. -AM Cortisol low at 2.29, FSH and LH low at 1.72 & <0.20, respectively. TSH 1.72 WNL. GH and ACTH still pending. -continue IV steroids. -Infectious disease consulted: -Reduced anti-inflammatory regimen may have led to resurgence of encephalitis along w/ AMS. Concern of Hypophysitis - Continue methylprednisolone 100 mg IV - see above under delirium VRE UTI -Urine culture as above (VRE, cherry). -Completed 5 days of Daptomycin. -Monitor I&O's, vitals. HTN -Holding Norvasc and metoprolol. Hx of DVT -Patient on heparin 5000 units q12h for DVT prophylaxis - holding for procedure in am -Holding home Eliquis. Metastatic melanoma -Patient follows with hematology. On Keytruda and hydrocortisone at home. Code: Full code Dispo: Med-Surg with telemetry FEN/GI: Low potassium diet. DVT Prophylaxis: none (2) SHAMEKA (acute kidney injury): (3) Sepsis: (4) Anemia: (5) Leukocytosis: (6) Adrenal suppression: (7) Cerebrovascular accident (CVA): (8) Fever of unknown origin: (9) Chronic kidney disease, stage III (moderate): (10) History of DVT (deep vein thrombosis): Admission and Anticipated Discharge Date Admission Date: September 09, 2021 Supervising Physician Co-Signing Physician Notes Resident Physician Supervision Note: I independently interviewed and examined the patient and verified the yousif history and physical, reviewed labs and image studies and agree with resident Dr. Arevalo findings and care plan. Khris Mast was asleep in bed this afternoon after dialysis. She is awakened by vo ice. She feels "good" today and has no concerns or complaints. Review of Systems Review of Systems: All systems reviewed & are unremarkable except as noted in HPI & below Physical Exam Physical Exam: General: Patient is a pleasant appearing elderly womanin no acute distress. HEENT: Non-erythematous oropharynx; no lymphadenopathy; normal dentition. CV: Regular rate and rhythm. Normal S1 and S2. No murmurs gallops or rubs. Pedal edema to the knees bilateral. Unilateral forearm edema on the left. Pulmonary: Mild crackles at lung base. No rhonchi or wheezes. Abdomen: Soft, nondistended abdomen. No bruits heard on auscultation. No tenderness to deep palpation. No guarding or rebound. MSK: Full ROM at all joints. Equal 5/5 strength bilaterally. Psych: Oriented to self, unchanged from yesterday. Congruent mood and affect. Results & Data Results & Data ([facility]) Vital Signs (Past 12 Hours) Vital Signs Temp Pulse Pulse Pulse Resp BP BP 09/20/21 03:54 36.2 C L 77 20 141/63 H 09/20/21 02:06 78 09/20/21 00:53 36.5 C 81 16 147/75 H 09/19/21 20:53 36.6 C 82 20 137/75 Pulse Ox 09/20/21 03:54 95 09/20/21 02:06 09/20/21 00:53 95 09/19/21 20:53 94 Resident Activity Tracking Resident Involvement: Resident Care Provided Care Provided: Adult Hospital Medicine (1) Anemia Anemia type: unspecified type Qualified Code(s): D64.9 - Anemia, unspecified (2) Leukocytosis Leukocytosis type: unspecified Qualified Code(s): D72.829 - Elevated white blood cell count, unspecified (3) Sepsis Sepsis acute organ dysfunction status: unspecified Sepsis type: sepsis due to unspecified organism Qualified Code(s): A41.9 - Sepsis, unspecified organism
[2021-09-20] MEDS ORDERED: SODIUM CHLORIDE 0.9% 250 ML IV PRN (07:36)
[2021-09-20] MEDS: PIPERACILLIN/TAZOBACTAM 4.5 GM in DEXTROSE 5% 100 ML IV SCH ×2 (07:42→19:41)
[2021-09-20] MEDS: methylPREDNISolone 100 MG in SYRINGE 0 ML IV SCH (08:59)
--- NOTE | 2021-09-20 10:27 | Nephrology Progress Note ---
Date of Service September 20, 2021 Assessment & Plan (1) SHAMEKA (acute kidney injury): Plan: 76-year-old female with metastatic melanoma, was on nivolumab/ipilimumab, admitted with change in mental status, SHAMEKA ( b/l cr 1.1 to 1.3) , fungal UTI and questionable pneumonia versus pneumonitis. 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 No sign of renal recovery yet, urine output remain low. Started on dialysis on 09/19/21 via right femoral temporary dialysis catheter. -- Getting 3rd dialysis treatment today so far tolerating well. -- Recommend 2 units of PRBC as hemoglobin dropped to critically low level. -- continue to monitor renal function for renal recovery although so far there is no sign of significant renal recovery. -- If no improvement in renal function by tomorrow will plan for keeping her NPO overnight, with plan for vascular surgery consultation for tunneled dialysis catheter Wednesday -- continue to avoid nephrotoxic medications, dose medications for less than 10 will follow (2) Melanoma: (3) Fever: (4) Chronic kidney disease, stage III (moderate): Plan: * Admission and Anticipated Discharge Date Admission Date: September 09, 2021 Khris Mast was seen and examined during dialysis. She was very pleasant, denied any symptom, has been tolerating dialysis well, vital signs stable. Right femoral temporary dialysis catheter has been functioning well, no bleeding from catheter site. urine output remains low, only 50 mL over last 24 hours. Review of Systems Review of Systems: Detailed review of system was otherwise unremarkable. Physical Exam Constitutional: WD/WN, vitals as above no acute distress Eyes: + anicteric sclerae Respiratory: no respiratory distress Auscultation: lungs clear to auscultation bilaterally Cardiovascular: Rate/Rhythm: regular rate and regular rhythm Extremities: no edema Right femoral temporary dialysis catheter, no sign of bleeding. Skin: no rashes Neurologic: no focal motor deficits Psychiatric: Orientation: alert and oriented x 3 Results & Data ([facility]) Vital Signs (Past 12 Hours) Vital Signs Temp Pulse Pulse Pulse Pulse Resp BP 09/20/21 10:00 80 133/69 09/20/21 09:30 77 130/67 09/20/21 09:13 36.8 C 78 09/20/21 07:52 36.4 C L 73 15 09/20/21 03:54 36.2 C L 77 20 09/20/21 02:06 78 09/20/21 00:53 36.5 C 81 16 BP BP Pulse Ox 09/20/21 10:00 09/20/21 09:30 09/20/21 09:13 09/20/21 07:52 128/65 95 09/20/21 03:54 141/63 H 95 09/20/21 02:06 09/20/21 00:53 147/75 H 95 PG Care Time/CCT Total # of Minutes Spent Total Time Spent with Patient: Total time spent is greater than 50% in coordination of care (as documented) at patient's floor/unit and/or counseling patient: Coding Level of Care Code 06182 Subseq Hosp Care Lvl 3 Diagnoses SHAMEKA (acute kidney injury) N17.9 Melanoma C43.9 Fever R50.9 Fever type: unspecified Chronic kidney disease, stage III (moderate) N18.30 (1) Fever Fever type: unspecified Qualified Code(s): R50.9 - Fever, unspecified
[2021-09-20] MEDS: ASPIRIN 81 MG ECTAB PO SCH (12:15)
[2021-09-20] MEDS: NEPHROCAPS PO SCH (12:16)
[2021-09-20] MEDS: PANTOprazole 40 MG TAB PO SCH ×2 (12:16→20:16)
[2021-09-20] MEDS: MONTELUKAST SODIUM 10 MG TABLET PO SCH (12:16)
[2021-09-21 01:20] LABS: Hematocrit (blood only) 28.4 % (37-47); Hemoglobin 9.5 g/dL (12.0-16.0)
[2021-09-21] MEDS: PIPERACILLIN/TAZOBACTAM 4.5 GM in DEXTROSE 5% 100 ML IV SCH ×2 (05:46→17:56)
--- NOTE | 2021-09-21 07:17 | Hospitalist Progress Note ---
Date of Service September 21, 2021 Assessment & Plan (1) Encephalitis: Plan: 76-year-old female with past medical history HTN, GERD, History of DVT, metastatic melanoma (on Keytruda and oral steroid taper), who presented with fever and altered mental status and admitted for metabolic encephalitis and acute kidney injury in the setting of recent discharge for presumed sepsis for fungal UTI, and subacute CVA on 09/05. SHAMEKA Secondary to ATN -Baseline creatinine 0.9-1.1. Creatinine continuing to trend up -Urine culture + for VRE faecium, Cherry but asymptomatic. -Sensitive to Daptomycin. Completed Daptomycin x5 days. -ATN possibly secondary to VRE UTI/AIN from immunotherapy -Nephrology consulted. -nivolumab/ipilimumab prior to admission. Both agents can be associated with SHAMEKA/AIN -Creatinine and GFR continued to worsen. Cr reached 10.37 -Pt started on dialysis. Received 3rd dialysis session yesterday. -Tentative plan to install tunneled dialysis catheter Wednesday if no sign of renal improvement by tomorrow. -Per nephrology, consider slow taper of steroid. Reviewed with oncology, who initially recommended IV methylprednisone. -Per oncology: maintain current dose for now. -Urine output increased to 200 mL today, urine visibly bloody -Continue to trend AM BMP, monitor I&O's. Anemia -Hgb 6.7 yesterday, down from 7.9 day before. -Transfused pRBC x2 bags. Post transfusion hgb 9.5 -Trend CBC Altered mental status/Delirium -Pt continues to wax and wane with respect to alertness and orientation. More agitated and confused today. -Other than creatinine, no obvious acute metabolic source. Suspect slow resolving subacute delirium secondary to encephalitis, ATN-SHAMEKA. -Continue to monitor Fever-resolved -Patient w/ temp 38.8 on 09/18. -WBC 10.26 this AM -Blood cultures resulted: negative, urine culture pending. -Chest XR w/ persistent pulmonary edema w/ increase in b/l pleural effusions, increase in bibasilar and perihilar opacities could reflect pneumonia or pulmonary edema. -Started on IV Zosyn for potential pneumonia source. MRSA nares neg. -AM CBC, monitor vitals. Encephalitis- resolved -AMS and fever to 38.1 in ED. -Patient received 1 dose of vancomycin in the ER. -Initially thought to be due to Keytruda b/c of side effect profile. -Dr. Herrera of oncology consulted: -Doubtful Keytruda was responsible for encephalitis, as she received her last dose long before for her symptoms started. -Suspects hypophysitis. -AM Cortisol low at 2.29, FSH and LH low at 1.72 & <0.20, respectively. TSH 1.72 WNL. GH and ACTH still pending. -continue IV steroids. -Infectious disease consulted: continue Zosyn Concern of Hypophysitis - Continue Methylprednisolone 100 mg IV VRE UTI -Urine culture as above (VRE, cherry). -Completed 5 days of Daptomycin. -Monitor I&O's, vitals. HTN -Holding Norvasc and metoprolol. Hx of DVT -Patient on heparin 5000 units q12h for DVT prophylaxis - holding for procedure in am -Holding home Eliquis. Metastatic melanoma -Patient follows with hematology. On Keytruda and hydrocortisone at home. Code: Full code Dispo: Med-Surg with telemetry FEN/GI: Low potassium diet. DVT Prophylaxis: none (2) SHAMEKA (acute kidney injury): (3) Sepsis: (4) Anemia: (5) Leukocytosis: (6) Adrenal suppression: (7) Cerebrovascular accident (CVA): (8) Fever of unknown origin: (9) Chronic kidney disease, stage III (moderate): (10) History of DVT (deep vein thrombosis): Admission and Anticipated Discharge Date Admission Date: September 09, 2021 Supervising Physician Co-Signing Physician Notes Resident Physician Supervision Note: I independently interviewed and examined the patient and verified the yousif history and physical, reviewed labs and image studies and agree with resident Dr. Arevalo findings and care plan. Subjective Pt is awake but appears confused. She states that "you've been sent here to stop me." On more than one occasion, she exclaims "take me to the hospital." When told that she is in the hospital, she growls and demands to speak to her doctor. Review of Systems Review of Systems: All systems reviewed & are unremarkable except as noted in HPI & below Physical Exam Physical Exam: General: Patient appears confused and agitated. Is otherwise in no acute distress. HEENT: Non-erythematous oropharynx; no lymphadenopathy; normal dentition. CV: Regular rate and rhythm. Normal S1 and S2. No murmurs gallops or rubs. Pedal edema to the knees bilateral. Unilateral forearm edema on the left. Pulmonary: Able to speak in complete sentences without stopping Abdomen: Soft, nondistended abdomen. Psych: Oriented to self. Not oriented to place or date. Results & Data Results & Data ([facility]) Vital Signs (Past 12 Hours) Vital Signs Temp Pulse Pulse Resp BP BP Pulse Ox 09/21/21 05:57 67 09/21/21 04:23 36.4 C L 63 14 141/73 H 94 09/20/21 23:07 36.0 C L 70 20 149/70 H 90 09/20/21 22:37 36.2 C L 71 21 157/74 H 92 09/20/21 22:22 36.4 C L 72 20 131/88 94 09/20/21 20:37 36.6 C 73 17 142/65 H 91 09/20/21 20:22 36.8 C 72 18 144/75 H 92 09/20/21 20:03 36.4 C L 74 18 140/74 93 Resident Activity Tracking Resident Involvement: Resident Care Provided Care Provided: Adult Hospital Medicine (1) Anemia Anemia type: unspecified type Qualified Code(s): D64.9 - Anemia, unspecified (2) Leukocytosis Leukocytosis type: unspecified Qualified Code(s): D72.829 - Elevated white blood cell count, unspecified (3) Sepsis Sepsis acute organ dysfunction status: unspecified Sepsis type: sepsis due to unspecified organism Qualified Code(s): A41.9 - Sepsis, unspecified organism
[2021-09-21] MEDS: ASPIRIN 81 MG ECTAB PO SCH (09:14)
[2021-09-21] MEDS: MONTELUKAST SODIUM 10 MG TABLET PO SCH (09:16)
[2021-09-21] MEDS: PANTOprazole 40 MG TAB PO SCH ×2 (09:16→21:33)
[2021-09-21] MEDS: NEPHROCAPS PO SCH (09:16)
[2021-09-21] MEDS: methylPREDNISolone 100 MG in SYRINGE 0 ML IV SCH (09:19)
[2021-09-21 09:45] LABS: BUN Creatinine Ratio 9.1 (10-20); Calcium 8.1 mg/dl (8.5-10.1); Creatinine Clr Calc Pharmacy 8.6 ml/min; Est GFR (African American) 6.3 ml/min; Est GFR (Non-African American) 5.4 ml/min; Potassium 4.3 mmol/L (3.5-5.1)
--- NOTE | 2021-09-21 10:49 | Nephrology Progress Note ---
Date of Service September 21, 2021 Assessment & Plan (1) SHAMEKA (acute kidney injury): Plan: 76-year-old female with metastatic melanoma, was on nivolumab/ipilimumab, admitted with change in mental status, SHAMEKA ( b/l cr 1.1 to 1.3) , fungal UTI and questionable pneumonia versus pneumonitis. 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 No sign of renal recovery yet, urine output remain low. Started on dialysis on 09/19/21 via right femoral temporary dialysis catheter. Had 3rd dialysis treatment, Yesterday, currently clinically stable looked confused, vital signs stable. No sign of renal recovery yet, urine output remains low. -- Consult vascular surgery for placement of tunneled dialysis catheter tomorrow as she may need to continue on dialysis for a longer period of time while we are waiting for renal recovery. Keep NPO post midnight, resume diet after tunneled dialysis catheter placement. If no plan for tunneled dialysis catheter placement tomorrow from vascular surgery, please resume diet tomorrow morning. Plan for next dialysis tomorrow. -- continue to avoid nephrotoxic medications, dose medications for less than 10 will follow (2) Melanoma: (3) Fever: (4) Chronic kidney disease, stage III (moderate): Plan: * Admission and Anticipated Discharge Date Admission Date: September 09, 2021 Subjective Syndrome was seen and examined in her room this morning. She was awake, alert but confused. vital signs are stable. No significant sign of renal recovery yet, urine output remains low. Recent repeat blood culture and urine culture has been negative. Review of Systems Review of Systems: Detailed review of system was otherwise unremarkable. Physical Exam Constitutional: WD/WN, vitals as above no acute distress Eyes: + anicteric sclerae Respiratory: no respiratory distress Auscultation: lungs clear to auscultation bilaterally Cardiovascular: Rate/Rhythm: regular rate and regular rhythm Extremities: no edema Skin: no rashes Neurologic: + confused; no focal motor deficits Psychiatric: Orientation: alert Results & Data ([facility]) Vital Signs (Past 12 Hours) Vital Signs Temp Pulse Pulse Pulse Resp BP BP 09/21/21 07:58 36.5 C 67 17 143/76 H 09/21/21 05:57 67 09/21/21 04:23 36.4 C L 63 14 141/73 H 09/20/21 23:07 36.0 C L 70 20 149/70 H Pulse Ox 09/21/21 07:58 96 09/21/21 05:57 09/21/21 04:23 94 09/20/21 23:07 90 PG Care Time/CCT Total # of Minutes Spent Total Time Spent with Patient: Total time spent is greater than 50% in coordination of care (as documented) at patient's floor/unit and/or counseling patient: Coding Level of Care Code 65894 Subseq Hosp Care Lvl 3 Diagnoses SHAMEKA (acute kidney injury) N17.9 Melanoma C43.9 Fever R50.9 Fever type: unspecified Chronic kidney disease, stage III (moderate) N18.30 (1) Fever Fever type: unspecified Qualified Code(s): R50.9 - Fever, unspecified
[2021-09-21] MEDS: ALUMINUM/MAGNESIUM SUSP 30 ML UDC PO PRN (17:54)
[2021-09-22] MEDS: PIPERACILLIN/TAZOBACTAM 4.5 GM in DEXTROSE 5% 100 ML IV SCH ×2 (05:05→18:11)
[2021-09-22 06:48] LABS: Nucleated RBC # (auto) 0.09 K/uL (0-0); Nucleated RBC % (auto) 0.5 %
[2021-09-22 06:51] LABS: Hematocrit (blood only) 33.1 % (37-47); Hemoglobin 10.8 g/dL (12.0-16.0); Mean Corpuscular Hemoglobin 28.5 pg (25-34); Mean Corpuscular Hgb Conc 32.6 g/dL (32-36); Mean Corpuscular Volume 87.3 fL (80-100); Mean Platelet Volume 9.9 fL (7.4-10.4); Platelet Count 289 K/uL (130-400); RDW Coefficient of Variation 18.6 % (11.5-14.5); Red Blood Count 3.79 M/uL (4.2-5.4); White Blood Count 16.45 K/uL (4.8-10.8)
[2021-09-22 07:16] LABS: Basophils # (auto) 0.03 K/uL (0-0.2); Basophils % (auto) 0.2 %; Eosinophils # (auto) 0.04 K/uL (0-0.5); Eosinophils % (auto) 0.2 %; Immature Granulocytes # (auto) 0.24 K/uL (0.00-0.02); Immature Granulocytes % (auto) 1.5 %; Lymphocytes # (auto) 1.18 K/uL (1.2-3.4); Lymphocytes % (auto) 7.2 %; Monocytes # (auto) 1.86 K/uL (0.11-0.59); Monocytes % (auto) 11.3 %; Neutrophils % (auto) 79.6 %
--- NOTE | 2021-09-22 07:36 | Hospitalist Progress Note ---
Date of Service September 22, 2021 Assessment & Plan (1) Encephalitis: Plan: 76-year-old female with past medical history HTN, GERD, History of DVT, metastatic melanoma (on Keytruda and oral steroid taper), who presented with fever and altered mental status and admitted for metabolic encephalitis and acute kidney injury in the setting of recent discharge for presumed sepsis for fungal UTI, and subacute CVA on 09/05. SHAMEKA Secondary to ATN -Baseline creatinine 0.9-1.1. Creatinine continuing to trend up -Urine culture + for VRE faecium, Cherry but asymptomatic. -Sensitive to Daptomycin. Completed Daptomycin x5 days. -ATN possibly secondary to VRE UTI/AIN from immunotherapy -Nephrology consulted. -nivolumab/ipilimumab prior to admission. Both agents can be associated with SHAMEKA/AIN -Pt started on dialysis. Received 4th dialysis session today. -Tentative plan to install tunneled dialysis catheter tomorrow w/ vascular surgery. -Per nephrology, consider slow taper of steroid. Reviewed with oncology, who initially recommended IV methylprednisone. -Start on Tums TID, increase metoprolol to 25mg BID. -Per oncology: maintain current dose for now. -Continue to trend AM BMP, monitor I&O's. Anemia -Hgb 6.7 09/21, down from 7.9 day before. -Transfused pRBC x2 bags. Post transfusion hgb 9.5 -Trend CBC Altered mental status/Delirium -Pt continues to wax and wane with respect to alertness and orientation. More agitated and confused today. -Other than creatinine, no obvious acute metabolic source. Suspect slow resolving subacute delirium secondary to encephalitis, ATN-SHAMEKA. -Continue to monitor Fever-resolved -Patient w/ temp 38.8 on 09/18. -WBC 16.45 this AM -Blood cultures resulted: negative, urine culture no growth. -Chest XR w/ persistent pulmonary edema w/ increase in b/l pleural effusions, increase in bibasilar and perihilar opacities could reflect pneumonia or pulmonary edema. -Started on IV Zosyn for potential pneumonia source on 09/18. MRSA nares neg. -AM CBC, monitor vitals. Encephalitis- resolved -AMS and fever to 38.1 in ED. -Patient received 1 dose of vancomycin in the ER. -Initially thought to be due to Keytruda b/c of side effect profile. -Dr. Herrera of oncology consulted: -Doubtful Keytruda was responsible for encephalitis, as she received her last dose long before for her symptoms started. -Suspects hypophysitis. -AM Cortisol low at 2.29, FSH and LH low at 1.72 & <0.20, respectively. TSH 1.72 WNL. GH and ACTH still pending. -continue IV steroids. -Infectious disease consulted: continue Zosyn Concern of Hypophysitis - Continue Methylprednisolone 100 mg IV VRE UTI -Urine culture as above (VRE, cherry). -Completed 5 days of Daptomycin. -Monitor I&O's, vitals. HTN -Holding Norvasc and metoprolol. Hx of DVT -Patient on heparin 5000 units q12h for DVT prophylaxis - holding for procedure in am -Holding home Eliquis. Metastatic melanoma -Patient follows with hematology. On Keytruda and hydrocortisone at home. Code: Full code Dispo: Med-Surg with telemetry FEN/GI: Low potassium diet. DVT Prophylaxis: none (2) SHAMEKA (acute kidney injury): (3) Sepsis: (4) Anemia: (5) Leukocytosis: (6) Adrenal suppression: (7) Cerebrovascular accident (CVA): (8) Fever of unknown origin: (9) Chronic kidney disease, stage III (moderate): (10) History of DVT (deep vein thrombosis): Admission and Anticipated Discharge Date Admission Date: September 09, 2021 Supervising Physician Co-Signing Physician Notes I personally examined the patient and verified all yousif points of history and exam, discussed case, and agree with decision making with Dr Guevara no meaningful HPI or ROS. vitals noted nad delirious breathing unlabored no accessory muscles good effort skin no rashes no pallor or icterus neuro no focal deficits arf - likely ATN from severe prerenal from poor PO intake vs less likely AIN. on HD - continue for now. for TDC tomorrow delirium - multifactorial. continue reorientation and supportive care as best as possible septic picture - no clear source, probably from hormonal insufficiencies from hypophysitis- continue corticosteroids possible VRE UTI - treated otherwise as above Subjective Patient seen at the bedside this morning seen as very anxious and delirious. Patient was afraid we would be taking her organs and that we were "bad guys". Patient was hesitant to have anything done but was willing to go to dialysis. Review of Systems Constitutional: as per Subjective / HPI Physical Exam Constitutional: WD/WN, vitals as above Eyes: PERRL, conjunctivae normal, anicteric sclerae Respiratory: normal respiratory effort, lungs clear to auscultation Cardiovascular: Rate/Rhythm: regular rate and regular rhythm Heart Sounds: normal S1 and normal S2 Extremities: + edema (B/l lower extremities 1+, R arm swelling. ) Psychiatric: Orientation: alert Results & Data Results & Data ([facility]) Vital Signs (Past 12 Hours) Vital Signs Temp Pulse Pulse Pulse Resp BP BP 09/22/21 07:14 77 09/22/21 03:00 36.1 C L 75 15 172/92 H 09/21/21 23:51 67 09/21/21 23:17 36.4 C L 69 20 180/93 H 09/21/21 19:35 36.4 C L 73 16 182/97 H Pulse Ox 09/22/21 07:14 09/22/21 03:00 92 09/21/21 23:51 09/21/21 23:17 91 09/21/21 19:35 91 Resident Activity Tracking Resident Involvement: Resident Care Provided Care Provided: Adult Hospital Medicine (1) Anemia Anemia type: unspecified type Qualified Code(s): D64.9 - Anemia, unspecified (2) Leukocytosis Leukocytosis type: unspecified Qualified Code(s): D72.829 - Elevated white blood cell count, unspecified (3) Sepsis Sepsis acute organ dysfunction status: unspecified Sepsis type: sepsis due to unspecified organism Qualified Code(s): A41.9 - Sepsis, unspecified organism
[2021-09-22] MEDS: methylPREDNISolone 100 MG in SYRINGE 0 ML IV SCH (08:14)
--- NOTE | 2021-09-22 09:16 | Consultation ---
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 Pt currently very confused and would only allow a cursory examination. Discussed with Dr Michelle, planning on permcath insertion tomorrow in OR. Will obtain consent from family prior to procedure. History of Present Illness Reason for Consultation: SHAMEKA, need permcath Attending Physician: Prashant Zacarias DO History of Present Illness 76 yo f with multiple medical problems, including metastatic melanoma, CKD, CVA, DVT, GERD, admitted with encephalopathy and SHAMEKA, seen in consultation today for permcath insertion for HD. Pt had R femoral temporary HD catheter placed last week by general surgery, but will require longer-term HD, so permcath indicated. Pt currently very confused and unable to answer questions appropriately. Temporary line is functioning well and she is to have HD later this AM. Allergies Allergy/AdvReac Type Severity Reaction Status Date / Time tramadol Allergy Mild NASUEA/CONF Verified 09/09/21 19:34 USION cephalexin [From Keflex] AdvReac Mild upset Verified 09/09/21 19:34 stomach Home Medications Medication Instructions Recorded Confirmed Type amlodipine 5 mg tablet (Norvasc) 5 mg PO QAM 12/05/18 09/09/21 History cholecalciferol (vitamin D3) 25 25 mcg PO QAM 12/11/19 09/09/21 History mcg (1,000 unit) tablet (Vitamin D3) metoprolol tartrate 25 mg tablet 12.5 mg PO BID 03/26/20 09/09/21 History diphenhydramine HCl 25 mg capsule 25 mg PO HS PRN cap 03/28/20 09/09/21 History (Benadryl) multivitamin 1 tab PO QAM 04/25/20 09/09/21 History cetirizine 10 mg tablet (Zyrtec) 10 mg PO QAM 01/14/21 09/09/21 History montelukast 10 mg tablet 10 mg PO DAILY 08/15/21 09/09/21 History nystatin 100,000 unit/mL oral 5 ml PO QID #140 ml 08/21/21 09/09/21 Rx suspension aspirin 81 mg tablet,delayed 81 mg PO QAM #30 tab 09/03/21 09/09/21 Rx release atorvastatin 40 mg tablet 40 mg PO QAM #30 tab 22 09/09/21 Rx apixaban 2.5 mg tablet (Eliquis) 2.5 mg PO BID #60 tab 09/05/21 09/09/21 Rx ferrous sulfate 325 mg (65 mg 325 mg PO QAM #30 tab 09/05/21 09/09/21 Rx iron) tablet,delayed release hydrocortisone 10 mg tablet 10 mg PO HS #30 tab 09/05/21 09/09/21 Rx (Cortef) hydrocortisone 10 mg tablet 20 mg PO QAM #60 tab 09/05/21 09/09/21 Rx (Cortef) pantoprazole 40 mg tablet,delayed 40 mg PO BID #60 tab 09/05/21 09/09/21 Rx release acetaminophen 325 mg tablet 650 mg PO Q6H PRN 09/09/21 09/09/21 History (Tylenol) levofloxacin 750 mg tablet 750 mg PO QPM 09/09/21 09/09/21 History prednisone 10 mg tablet See Rx Instructions .ROUTE .COMPLEX 09/09/21 09/09/21 History promethazine 25 mg tablet 25 mg PO Q6H PRN 09/09/21 09/09/21 History Patient History Medical History Cerebral infarct "Presumed old right frontal lobe cerebral infarct" - per Dec 2019 PET scan -- pt unaware/denies 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 No chemo or XRT GERD (gastroesophageal reflux disease) Hearing deficit Hiatal hernia Hx of pulmonary embolus 2018 s/p foot surgery, was on Eliquis for a few months. Hypertension Kidney disease Stage III- does not follow with treatment manager Left leg DVT post op after foot surgery Melanoma Metastatic malignant melanoma dx'ed 10/29/20 Will require immunotherapy infusions- reason for port Obesity Presence of permanent central venous catheter (09/18/21) Insertion of Temporary Dialysis Catheter, Right Femoral Approach, Ultrasound Localization of Right Femoral Artery, Fluroscopy for Positioning(Right) - Juan Abbott, DO 09/18/2021 Seasonal allergies SOB (shortness of breath) on exertion Unilateral vocal cord paralysis sees S - Dr. Tinsley Surgical History H/O excision of mass History of ankle surgery RECONSTRUCTION OF LEFT ANKLE History of biopsy History of cataract surgery History of colonoscopy History of esophagogastroduodenoscopy (EGD) History of laryngoscopy Hx of bladder repair surgery Hx of foot surgery reconstructive right foot surgery (2019) Hx of hysterectomy Hx of total knee replacement RIGHT AND LEFT Hx of tubal ligation PONV (postoperative nausea and vomiting) Family History Mother Hearing loss Cancer Sister Hearing loss Cancer Other Breast cancer Family history non-contributory No family history of adverse response to anesthesia No family history of bleeding disorder Social History Smoking Status: Never smoker Second Hand Exposure: No; Hx Alcohol Use: No Hx Substance Use: No Preferred Language: [place] Communication Ability: Effective 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[employer] Installation Required: No Beliefs That Will Affect Care: None marital status: Current Living Situation: Alf Current Living Situation Comment: [facility] How many Children do You have: 2 Feels Safe at Home: Yes Safety Concerns: Feels Safe At This Time during the past year weight has: increased > 10 lbs Assistive Devices: Cane and Walker Assistive Devices Comment: hearing aid 1 Review of Systems Review of Systems: Unobtainable due to cognitive status Physical Exam Constitutional: WD/WN, vitals as above + ill appearing (mildly), comfortable, + in distress (tearful) and + combative; + uncooperative ENMT: Ears: + hearing impairment Neck: trachea midline Respiratory: normal respiratory effort, lungs clear to auscultation Auscultation: + diminished lung sounds Cardiovascular: Rate/Rhythm: regular rate and regular rhythm Vessels: + abnormal peripheral pulses (pt would not allow full exam) Extremities: normal capillary refill, + edema and + vascular access device (R femoral vein line) Chest (Breasts): Additional Comments: R chest wall with site of previous infusaport noted, no current port. Gastrointestinal (Abdomen): Percussion/Palpation: abdomen nontender Musculoskeletal: no cyanosis or clubbing, extremities motor strength 5/5 Skin: no rashes, warm and dry Neurologic: moves all extremities, awake and + confused; no focal motor deficits Speech / Cognition: normal speech Psychiatric: Orientation: alert and oriented to person; + not oriented to place, + not oriented to time and + uncooperative Results & Data ([facility]) Vital Signs (Past 12 Hours) Vital Signs Temp Pulse Pulse Pulse Resp BP BP 09/22/21 07:55 36.3 C L 76 16 181/105 H 09/22/21 07:14 77 09/22/21 03:00 36.1 C L 75 15 172/92 H 09/21/21 23:51 67 09/21/21 23:17 36.4 C L 69 20 180/93 H Pulse Ox 09/22/21 07:55 93 09/22/21 07:14 09/22/21 03:00 92 09/21/21 23:51 09/21/21 23:17 91
--- NOTE | 2021-09-22 10:02 | Nephrology Progress Note ---
Date of Service September 22, 2021 Assessment & Plan (1) SHAMEKA (acute kidney injury): Plan: 76-year-old female with metastatic melanoma, was on nivolumab/ipilimumab, admitted with change in mental status, HSAMEKA ( b/l cr 1.1 to 1.3) , fungal UTI and questionable pneumonia versus pneumonitis. 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 No sign of renal recovery yet, urine output remain low. Started on dialysis on 09/19/21 via right femoral temporary dialysis catheter. Currently clinically stable looked confused, vital signs stable except elevated BP. No sign of renal recovery, urine output remains low. -- HD today, Consult vascular surgery for placement of tunneled dialysis catheter tomorrow as she may need to continue on dialysis for a longer period of time while we are waiting for renal recovery. Keep NPO post midnight, resume diet after tunneled dialysis catheter placement. --start on Tums TIDM. --increase Metoprolol to 25 bid -- continue to avoid nephrotoxic medications, dose medications for less than 10 will follow (2) Melanoma: (3) Fever: (4) Chronic kidney disease, stage III (moderate): Plan: * Admission and Anticipated Discharge Date Admission Date: September 09, 2021 Khris Mast was seen and examined in her room this morning. She was awake, alert but remains confused. Vital signs are stable. No sign of renal recovery yet, urine output remains low, dark, blood tinged. Recent repeat blood culture and urine culture has been negative. Review of Systems Review of Systems: Detailed review of system was otherwise unremarkable. Physical Exam Constitutional: WD/WN, vitals as above no acute distress Eyes: + anicteric sclerae Respiratory: no respiratory distress Auscultation: lungs clear to auscultation bilaterally Cardiovascular: Rate/Rhythm: regular rate and regular rhythm Extremities: no edema Skin: no rashes Neurologic: + confused; no focal motor deficits Psychiatric: Orientation: alert Results & Data ([facility]) Vital Signs (Past 12 Hours) Vital Signs Temp Pulse Pulse Pulse Resp BP BP 09/22/21 07:55 36.3 C L 76 16 181/105 H 09/22/21 07:14 77 09/22/21 03:00 36.1 C L 75 15 172/92 H 06/05/22 23:51 67 09/21/21 23:17 36.4 C L 69 20 180/93 H Pulse Ox 09/22/21 07:55 93 09/22/21 07:14 09/22/21 03:00 92 09/21/21 23:51 09/21/21 23:17 91 PG Care Time/CCT Total # of Minutes Spent Total Time Spent with Patient: Total time spent is greater than 50% in coordination of care (as documented) at patient's floor/unit and/or counseling patient: Coding Level of Care Code 18389 Subseq Hosp Care Lvl 3 Diagnoses SHAMEKA (acute kidney injury) N17.9 Melanoma C43.9 Fever R50.9 Fever type: unspecified Chronic kidney disease, stage III (moderate) N18.30 (1) Fever Fever type: unspecified Qualified Code(s): R50.9 - Fever, unspecified
[2021-09-22] MEDS: ASPIRIN 81 MG ECTAB PO SCH (14:09)
[2021-09-22] MEDS: MONTELUKAST SODIUM 10 MG TABLET PO SCH (14:10)
[2021-09-22] MEDS: NEPHROCAPS PO SCH (14:10)
[2021-09-22] MEDS: PANTOprazole 40 MG TAB PO SCH ×2 (14:10→22:47)
[2021-09-22] MEDS: METOPROLOL TARTRATE 25 MG TAB PO SCH ×2 (14:11→22:47)
[2021-09-22] MEDS: CALCIUM CARBONATE 500 MG CHEWABLE TAB PO SCH ×3 (14:14→16:34)
--- NOTE | 2021-09-22 16:42 | Billing Data ---
Date of Service September 22, 2021 Coding Level of Care Code 20216 Subseq Hosp Care Lvl 3
[2021-09-22] MEDS ORDERED: OLANZapine 10 MG/2.1 ML SDV IM STA (19:53)
--- NOTE | 2021-09-22 20:12 | Communication Note ---
Date of Service: September 22, 2021 Received notification from RN that patient was pulling at her Rollins/lines and being verbally/physically aggressive. Patient also called -- asking for ana ice. I evaluated her in the room and she was verbally aggressive at that time as well. Insisting on getting OOB despite urging her not to. She continued to insist on talking to top precipitator operator who were "outside the room". I opened the curtain to show her there was no one there and she insisted she had seen them. Due to behavior that is dangerous to herself and physical aggression toward staff ordered small dose of Zyprexa 1.25mg IM. Will reassess later on. Resident Activity Tracking Resident Involvement: Resident Care Provided Care Provided: Adult Hospital Medicine
[2021-09-23] MEDS: PIPERACILLIN/TAZOBACTAM 4.5 GM in DEXTROSE 5% 100 ML IV SCH ×2 (05:41→17:51)
[2021-09-23 06:35] LABS: Albumin Level 2.5 gm/dl (3.4-5.0); BUN Creatinine Ratio 7.5 (10-20); Calcium 7.8 mg/dl (8.5-10.1); Creatinine Clr Calc Pharmacy 11.8 ml/min; Est GFR (African American) 9.4 ml/min; Est GFR (Non-African American) 8.1 ml/min; Phosphorus 4.2 mg/dl (2.5-4.9); Potassium 3.2 mmol/L (3.5-5.1)
[2021-09-23] MEDS ORDERED: FUROSEMIDE 10 MG/ML 10 ML VIAL IV ONE (08:12)
[2021-09-23] MEDS ORDERED: FUROSEMIDE 40 MG/4 ML VIAL IV ONE (08:45)
[2021-09-23] MEDS ORDERED: amLODIPine BESYLATE 5 MG TAB PO SCH (09:00)
[2021-09-23] MEDS: ASPIRIN 81 MG ECTAB PO SCH (09:20)
[2021-09-23] MEDS: CALCIUM CARBONATE 500 MG CHEWABLE TAB PO SCH ×3 (09:20→17:51)
[2021-09-23] MEDS: MONTELUKAST SODIUM 10 MG TABLET PO SCH (09:21)
[2021-09-23] MEDS: PANTOprazole 40 MG TAB PO SCH ×2 (09:21→20:12)
[2021-09-23] MEDS: NEPHROCAPS PO SCH (09:23)
[2021-09-23] MEDS: methylPREDNISolone 100 MG in SYRINGE 0 ML IV SCH (09:23)
--- NOTE | 2021-09-23 10:10 | Nephrology Progress Note ---
Date of Service September 23, 2021 Assessment & Plan (1) SHAMEKA (acute kidney injury): Plan: 76-year-old female with metastatic melanoma, was on nivolumab/ipilimumab, admitted with change in mental status, SHAMEKA ( b/l cr 1.1 to 1.3) , fungal UTI and questionable pneumonia versus pneumonitis. 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 No sign of renal recovery yet, urine output remain low. Started on dialysis on 09/19/21 via right femoral temporary dialysis catheter. Currently clinically stable, vital signs stable except elevated BP. Creatinine much lower with acceptable electrolyte although she did have dialysis yesterday. Overnight urine output increased. Volume status acceptable. -- as electrolyte, volume status acceptable and urine output slightly improved, will cancel tunneled dialysis catheter and continue to monitor for renal recovery. Give Lasix 120 mg IV x1 dose now. --consider decreasing steroid dose which may be contributing to her delirium and confusion as well. -- Continue on Tums TIDM. -- on Metoprolol to 25 bid -- continue to avoid nephrotoxic medications, dose medications for less than 10 will follow (2) Melanoma: (3) Fever: (4) Chronic kidney disease, stage III (moderate): Plan: * Admission and Anticipated Discharge Date Admission Date: September 09, 2021 Khris Mast was seen and examined in her room this morning. She was awake alert, calm and much less confused today. Vital signs are stable. had dialysis yesterday, electrolyte has been acceptable. Overnight urine output slightly improved. Overall she has been feeling well, no shortness of breath. Blood pressure still elevated but slightly improved. Review of Systems Review of Systems: Detailed review of system was otherwise unremarkable. Physical Exam Constitutional: WD/WN, vitals as above no acute distress Eyes: + anicteric sclerae Respiratory: no respiratory distress Auscultation: lungs clear to auscultation bilaterally Cardiovascular: Rate/Rhythm: regular rate and regular rhythm Extremities: no edema Skin: no rashes Neurologic: + confused; no focal motor deficits Psychiatric: Orientation: alert Results & Data ([facility]) Vital Signs (Past 12 Hours) Vital Signs Temp Pulse Pulse Pulse Resp BP Pulse Ox 09/23/21 07:58 36.2 C L 80 17 168/86 H 94 09/23/21 03:00 36.8 C 80 16 174/88 H 92 09/22/21 22:41 36.6 C 75 15 176/97 H PG Care Time/CCT Total # of Minutes Spent Total Time Spent with Patient: Total time spent is greater than 50% in coordination of care (as documented) at patient's floor/unit and/or counseling patient: Coding Level of Care Code 31027 Subseq Hosp Care Lvl 3 Diagnoses SHAMEKA (acute kidney injury) N17.9 Melanoma C43.9 Fever R50.9 Fever type: unspecified Chronic kidney disease, stage III (moderate) N18.30 (1) Fever Fever type: unspecified Qualified Code(s): R50.9 - Fever, unspecified
--- NOTE | 2021-09-23 10:59 | Hospitalist Progress Note ---
Date of Service September 23, 2021 Assessment & Plan (1) Encephalitis: Plan: 76-year-old female with past medical history HTN, GERD, History of DVT, metastatic melanoma (on Keytruda and oral steroid taper), who presented with fever and altered mental status and admitted for metabolic encephalitis and acute kidney injury in the setting of recent discharge for presumed sepsis for fungal UTI, and subacute CVA on 09/05. SHAMEKA Secondary to ATN -Baseline creatinine 0.9-1.1. Creatinine continuing to trend up -Urine culture + for VRE faecium, Cherry but asymptomatic. -Sensitive to Daptomycin. Completed Daptomycin x5 days. -ATN possibly secondary to VRE UTI/AIN from immunotherapy -Nephrology consulted. -nivolumab/ipilimumab prior to admission. Both agents can be associated with SHAMEKA/AIN -Pt started on dialysis. Received 4th dialysis session yesterday. -Holding off on tunneled dialysis catheter given good urine output last night. Given 120mg Lasix IV x1. -Per nephrology, consider slow taper of steroid. Reviewed with oncology, who initially recommended IV methylprednisone. -Start on Tums TID, increase metoprolol to 25mg BID. -Per oncology: maintain current dose for now. -Continue to trend AM BMP, monitor I&O's. Anemia -Hgb 6.7 09/21, down from 7.9 day before. -Transfused pRBC x2 bags. Post transfusion hgb 9.5 -Trend CBC Altered mental status/Delirium -Pt continues to wax and wane with respect to alertness and orientation. More agitated and confused today. -Other than creatinine, no obvious acute metabolic source. Suspect slow resolving subacute delirium secondary to encephalitis, ATN-SHAMEKA. -Continue to monitor Fever-resolved -Patient w/ temp 38.8 on 09/18. -WBC 16.45 this AM -Blood cultures resulted: negative, urine culture no growth. -Chest XR w/ persistent pulmonary edema w/ increase in b/l pleural effusions, increase in bibasilar and perihilar opacities could reflect pneumonia or pulmonary edema. -Started on IV Zosyn for potential pneumonia source on 09/18. MRSA nares neg. -AM CBC, monitor vitals. Encephalitis- resolved -AMS and fever to 38.1 in ED. -Patient received 1 dose of vancomycin in the ER. -Initially thought to be due to Keytruda b/c of side effect profile. -Dr. Herrera of oncology consulted: -Doubtful Keytruda was responsible for encephalitis, as she received her last dose long before for her symptoms started. -Suspects hypophysitis. -AM Cortisol low at 2.29, FSH and LH low at 1.72 & <0.20, respectively. TSH 1.72 WNL. GH and ACTH still pending. -continue IV steroids. -Infectious disease consulted: continue Zosyn Concern of Hypophysitis -Continue Methylprednisolone 100 mg IV -Will try to reach out to endocrinology for further recs on hypophysitis. VRE UTI -Urine culture as above (VRE, cherry). -Completed 5 days of Daptomycin. -Monitor I&O's, vitals. HTN -Holding Norvasc and metoprolol. Hx of DVT -Patient on heparin 5000 units q12h for DVT prophylaxis - holding for procedure in am -Holding home Eliquis. Metastatic melanoma -Patient follows with hematology. On Keytruda and hydrocortisone at home. Code: Full code Dispo: Med-Surg with telemetry FEN/GI: Low potassium diet. DVT Prophylaxis: none (2) SHAMEKA (acute kidney injury): (3) Sepsis: (4) Anemia: (5) Leukocytosis: (6) Adrenal suppression: (7) Cerebrovascular accident (CVA): (8) Fever of unknown origin: (9) Chronic kidney disease, stage III (moderate): (10) History of DVT (deep vein thrombosis): Admission and Anticipated Discharge Date Admission Date: September 09, 2021 Supervising Physician Co-Signing Physician Notes I personally examined the patient and verified all yousif points of history and exam, discussed case, and agree with decision making with Dr Guevara no meaningful HPI or ROS but more pleasant today vitals noted nad delirious breathing unlabored no accessory muscles good effort skin no rashes no pallor or icterus neuro no focal deficits arf - likely ATN from severe prerenal from poor PO intake vs less likely AIN. continue supportive care, prn HD, expectant management delirium - multifactorial. continue reorientation and supportive care as best as possible septic picture - no clear source, probably from hormonal insufficiencies from hypophysitis- continue corticosteroids - wean slowly to hydrocortisone 20am/10afternoon, check free t4, likley will need repeated in a month or so as well possible VRE UTI - treated otherwise as above Subjective Patient doing better today, with less volatility in accusations of wanting to harm her or "take her organs", however with an episode of calling the police from hospital phone last night. Told by night resident she was still harboring volatile feelings at that time and she was given a dose of Zyprexa. This morning she was warmer in hr receptionist, stating she felt better after getting her dialysis session. She denies any shortness of breath, fevers, chills. Review of Systems Constitutional: as per Subjective / HPI Physical Exam Constitutional: WD/WN, vitals as above Eyes: PERRL, conjunctivae normal, anicteric sclerae Respiratory: normal respiratory effort, lungs clear to auscultation Cardiovascular: Rate/Rhythm: regular rate and regular rhythm Heart Sounds: normal S1 and normal S2 Extremities: + edema (B/l lower extremities 1+, R arm swelling. ) Gastrointestinal (Abdomen): normal bowel sounds, soft, nontender, no hepatosplenomegaly Psychiatric: Orientation: alert Results & Data Results & Data ([facility]) Vital Signs (Past 12 Hours) Vital Signs Temp Pulse Pulse Resp BP Pulse Ox 09/23/21 07:58 36.2 C L 80 17 168/86 H 94 09/23/21 03:00 36.8 C 80 16 174/88 H 92 Resident Activity Tracking Resident Involvement: Resident Care Provided Care Provided: Adult Hospital Medicine (1) Anemia Anemia type: unspecified type Qualified Code(s): D64.9 - Anemia, unspecified (2) Leukocytosis Leukocytosis type: unspecified Qualified Code(s): D72.829 - Elevated white blood cell count, unspecified (3) Sepsis Sepsis acute organ dysfunction status: unspecified Sepsis type: sepsis due to unspecified organism Qualified Code(s): A41.9 - Sepsis, unspecified organism
[2021-09-23] MEDS: METOPROLOL TARTRATE 25 MG TAB PO SCH ×2 (11:22→20:12)
--- NOTE | 2021-09-23 18:15 | Billing Data ---
Date of Service September 23, 2021 Coding Level of Care Code 70896 Subseq Hosp Care Lvl 3
--- NOTE | 2021-09-23 18:16 | Billing Data ---
Date of Service September 23, 2021 Coding Level of Care Code 71484 Subseq Hosp Care Lvl 3
[2021-09-24] MEDS: PIPERACILLIN/TAZOBACTAM 4.5 GM in DEXTROSE 5% 100 ML IV SCH (05:02)
--- NOTE | 2021-09-24 07:07 | Hospitalist Progress Note ---
Date of Service September 24, 2021 Assessment & Plan (1) Encephalitis: Plan: 76-year-old female with past medical history HTN, GERD, History of DVT, metastatic melanoma (on Keytruda and oral steroid taper), who presented with fever and altered mental status and admitted for metabolic encephalitis and acute kidney injury in the setting of recent discharge for presumed sepsis for fungal UTI, and subacute CVA on 09/05. SHAMEKA Secondary to ATN -Baseline creatinine 0.9-1.1. Creatinine continuing to trend up -Urine culture + for VRE faecium, Cherry but asymptomatic. -Sensitive to Daptomycin. Completed Daptomycin x5 days. -ATN possibly secondary to VRE UTI/AIN from immunotherapy -Nephrology consulted. -nivolumab/ipilimumab prior to admission. Both agents can be associated with SHAMEKA/AIN -Pt started on dialysis. -If no improvement in urine output, additional dialysis session in afternoon, possible tunneled catheter tomorrow. -Given 160mg IV Lasix today. -Per nephrology, consider slow taper of steroid. Reviewed with oncology, who initially recommended IV methylprednisone. -Start on Tums TID, metoprolol to 25mg BID, increased amlodipine to 10mg. -Per oncology: maintain current dose for now. -Continue to trend AM BMP, monitor I&O's. Anemia -Hgb 6.7 09/21, down from 7.9 day before. -Transfused pRBC x2 bags. Post transfusion hgb 9.5 -Trend CBC Altered mental status/Delirium -Pt continues to wax and wane with respect to alertness and orientation. More agitated and confused today. -Other than creatinine, no obvious acute metabolic source. Suspect slow resolving subacute delirium secondary to encephalitis, ATN-SHAMEKA. -Continue to monitor Fever-resolved -Patient w/ temp 38.8 on 09/18. -WBC 16.45 this AM -Blood cultures resulted: negative, urine culture no growth. -Chest XR w/ persistent pulmonary edema w/ increase in b/l pleural effusions, increase in bibasilar and perihilar opacities could reflect pneumonia or pulmonary edema. -Started on IV Zosyn for potential pneumonia source on 09/18. MRSA nares neg. -Stopped Zosyn after afebrile, blood cultures and urine culture negative. -AM CBC, monitor vitals. Encephalitis- resolved -AMS and fever to 38.1 in ED. -Patient received 1 dose of vancomycin in the ER. -Initially thought to be due to Keytruda b/c of side effect profile. -Dr. Herrera of oncology consulted: -Doubtful Keytruda was responsible for encephalitis, as she received her last dose long before for her symptoms started. -Suspects hypophysitis. -AM Cortisol low at 2.29, FSH and LH low at 1.72 & <0.20, respectively, GH and ACTH low. TSH 1.72. -continue IV steroids. -Infectious disease consulted: continue Zosyn Concern of Hypophysitis -Reached out to endocrinology -Wean steroids to 20mg hydrocortisone in the AM, 10mg hydrocortisone in the PM. -Continue to wean Methylprednisolone, 80 mg IV VRE UTI -Urine culture as above (VRE, cherry). -Completed 5 days of Daptomycin. -Monitor I&O's, vitals. HTN -Holding Norvasc and metoprolol. Hx of DVT -Patient on heparin 5000 units q12h for DVT prophylaxis - holding for procedure in am -Holding home Eliquis. Metastatic melanoma -Patient follows with hematology. On Keytruda and hydrocortisone at home. Code: Full code Dispo: Med-Surg with telemetry FEN/GI: Low potassium diet. NPO midnight. DVT Prophylaxis: none (2) SHAMEKA (acute kidney injury): (3) Sepsis: (4) Anemia: (5) Leukocytosis: (6) Adrenal suppression: (7) Cerebrovascular accident (CVA): (8) Fever of unknown origin: (9) Chronic kidney disease, stage III (moderate): (10) History of DVT (deep vein thrombosis): Admission and Anticipated Discharge Date Admission Date: September 09, 2021 Supervising Physician Co-Signing Physician Notes I personally examined the patient and verified all yousif points of history and exam, discussed case, and agree with decision making with Dr Guevara no meaningful HPI or ROS but again pleasant today. does mention about getting dialysis again vitals noted nad delirious breathing unlabored no accessory muscles good effort skin no rashes no pallor or icterus neuro no focal deficits arf - likely ATN from severe prerenal from poor PO intake vs less likely AIN. continue supportive care, again HD, expectant management delirium - multifactorial. continue reorientation and supportive care as best as possible septic picture - no clear source, probably from hormonal insufficiencies from hypophysitis- continue corticosteroids - wean slowly to hydrocortisone 20am/10afternoon (down to 80mg IV methylpred today), free T4 ok, likely will need repeated in a month or so as well possible VRE UTI - treated otherwise as above Subjective Patient seen at the bedside this morning and feeling well today. Denies any shortness of breath, chest pain, fevers, chills. Review of Systems Constitutional: as per Subjective / HPI Physical Exam Constitutional: WD/WN, vitals as above Eyes: PERRL, conjunctivae normal, anicteric sclerae Respiratory: normal respiratory effort, lungs clear to auscultation Cardiovascular: Rate/Rhythm: regular rate and regular rhythm Heart Sounds: normal S1 and normal S2 Extremities: + edema (B/l lower extremities 1+, R arm swelling. ) Psychiatric: Orientation: alert Results & Data Results & Data ([facility]) Vital Signs (Past 12 Hours) Vital Signs Temp Pulse Pulse Resp BP BP Pulse Ox 09/24/21 03:54 36.4 C L 68 16 178/88 H 94 09/24/21 00:13 57 L 09/23/21 23:28 36.5 C 60 20 175/86 H 94 09/23/21 19:56 36.8 C 62 18 153/70 H 92 Resident Activity Tracking Resident Involvement: Resident Care Provided Care Provided: Adult Hospital Medicine (1) Anemia Anemia type: unspecified type Qualified Code(s): D64.9 - Anemia, unspecified (2) Leukocytosis Leukocytosis type: unspecified Qualified Code(s): D72.829 - Elevated white blood cell count, unspecified (3) Sepsis Sepsis acute organ dysfunction status: unspecified Sepsis type: sepsis due to unspecified organism Qualified Code(s): A41.9 - Sepsis, unspecified organism
[2021-09-24 08:06] LABS: Albumin Level 2.8 gm/dl (3.4-5.0); BUN Creatinine Ratio 7.4 (10-20); Calcium 8.3 mg/dl (8.5-10.1); Creatinine Clr Calc Pharmacy 9.4 ml/min; Est GFR (African American) 7.1 ml/min; Est GFR (Non-African American) 6.1 ml/min; Potassium 3.4 mmol/L (3.5-5.1)
[2021-09-24] MEDS ORDERED: FUROSEMIDE 40 MG/4 ML VIAL IV ONE (08:30)
[2021-09-24] MEDS: ASPIRIN 81 MG ECTAB PO SCH (08:36)
[2021-09-24] MEDS: PANTOprazole 40 MG TAB PO SCH ×2 (08:36→20:08)
[2021-09-24] MEDS: MONTELUKAST SODIUM 10 MG TABLET PO SCH (08:37)
[2021-09-24] MEDS: METOPROLOL TARTRATE 25 MG TAB PO SCH ×2 (08:37→20:07)
[2021-09-24] MEDS: CALCIUM CARBONATE 500 MG CHEWABLE TAB PO SCH ×3 (08:38→17:22)
[2021-09-24] MEDS: methylPREDNISolone 80 MG in SYRINGE 0 ML IV SCH (08:43)
[2021-09-24] MEDS: NEPHROCAPS PO SCH (08:48)
[2021-09-24] MEDS: amLODIPine BESYLATE 5 MG TAB PO SCH (10:00)
--- NOTE | 2021-09-24 10:12 | Nephrology Progress Note ---
Date of Service September 24, 2021 Assessment & Plan (1) SHAMEKA (acute kidney injury): Plan: 76-year-old female with metastatic melanoma, was on nivolumab/ipilimumab, admitted with change in mental status, SHAMEKA ( b/l cr 1.1 to 1.3) , fungal UTI and questionable pneumonia versus pneumonitis. 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 No sign of renal recovery yet, urine output remain low. Started on dialysis on 09/19/21 via right femoral temporary dialysis catheter. Currently clinically stable, vital signs stable except elevated BP. Creatinine again went off of dialysis yesterday and urine output did not improve as expected with IV Lasix. -- Lasix 160 mg IV x1 dose now, if no significant improvement in urine output, will plan for dialysis this afternoon and try to schedule for tunnel catheter tomorrow. --consider decreasing steroid dose which may be contributing to her delirium and confusion as well. -- Continue on Tums TIDM. -- increase Amlodipine to 10 mg/d, on Metoprolol to 25 bid -- continue to avoid nephrotoxic medications, dose medications for less than 10 will follow (2) Melanoma: (3) Fever: (4) Chronic kidney disease, stage III (moderate): Plan: * Admission and Anticipated Discharge Date Admission Date: September 09, 2021 Khris Mast was seen and examined in her room this morning. She was awake alert, calm and much less confused today. Vital signs are stable. She had dialysis Wednesday, briefly UO slightly improved but did not respond to Lasix as expected and cr again increased to 6.1 off of dialysis but electrolyte has been acceptable. Overall she has been feeling well, no shortness of breath. Blood pressure still elevated but slightly improved. Review of Systems Review of Systems: Detailed review of system was otherwise unremarkable. Physical Exam Constitutional: WD/WN, vitals as above no acute distress Eyes: + anicteric sclerae Respiratory: no respiratory distress Auscultation: lungs clear to auscultation bilaterally Cardiovascular: Rate/Rhythm: regular rate and regular rhythm Extremities: no edema Skin: no rashes Neurologic: + confused; no focal motor deficits Psychiatric: Orientation: alert Results & Data ([facility]) Vital Signs (Past 12 Hours) Vital Signs Temp Pulse Pulse Resp BP BP Pulse Ox 09/24/21 08:00 36.7 C 72 18 159/79 H 97 09/24/21 03:54 36.4 C L 68 16 178/88 H 94 09/24/21 00:13 57 L 09/23/21 23:28 36.5 C 60 20 175/86 H 94 PG Care Time/CCT Total # of Minutes Spent Total Time Spent with Patient: Total time spent is greater than 50% in coordination of care (as documented) at patient's floor/unit and/or counseling patient: Coding Level of Care Code 28290 Subseq Hosp Care Lvl 3 Diagnoses SHAMEKA (acute kidney injury) N17.9 Melanoma C43.9 Fever R50.9 Fever type: unspecified Chronic kidney disease, stage III (moderate) N18.30 (1) Fever Fever type: unspecified Qualified Code(s): R50.9 - Fever, unspecified
--- NOTE | 2021-09-24 15:42 | Billing Data ---
Date of Service September 24, 2021 Coding Level of Care Code 50834 Subseq Hosp Care Lvl 3
[2021-09-24] MEDS: ACETAMINOPHEN 325 MG TAB PO PRN (17:20)
[2021-09-24] MEDS: ALUMINUM/MAGNESIUM SUSP 30 ML UDC PO PRN (20:10)
[2021-09-25 06:32] LABS: Basophils # (auto) 0.01 K/uL (0-0.2); Basophils % (auto) 0.1 %; Eosinophils # (auto) 0.23 K/uL (0-0.5); Eosinophils % (auto) 1.8 %; Hematocrit (blood only) 30.1 % (37-47); Hemoglobin 9.7 g/dL (12.0-16.0); Immature Granulocytes # (auto) 0.11 K/uL (0.00-0.02); Immature Granulocytes % (auto) 0.8 %; Lymphocytes # (auto) 1.06 K/uL (1.2-3.4); Lymphocytes % (auto) 8.1 %; Mean Corpuscular Hemoglobin 29.5 pg (25-34); Mean Corpuscular Hgb Conc 32.2 g/dL (32-36); Mean Corpuscular Volume 91.5 fL (80-100); Monocytes # (auto) 1.09 K/uL (0.11-0.59); Monocytes % (auto) 8.3 %; Neutrophils # (auto) 10.56 K/uL (1.4-6.5); Neutrophils % (auto) 80.9 %; Platelet Count 196 K/uL (130-400); RDW Coefficient of Variation 17.9 % (11.5-14.5); RDW Standard Deviation 58.3 fL (36.4-46.3); Red Blood Count 3.29 M/uL (4.2-5.4); White Blood Count 13.06 K/uL (4.8-10.8)
--- NOTE | 2021-09-25 06:47 | Hospitalist Progress Note ---
Date of Service September 25, 2021 Assessment & Plan (1) Encephalitis: Plan: 76-year-old female with past medical history HTN, GERD, History of DVT, metastatic melanoma (on Keytruda and oral steroid taper), who presented with fever and altered mental status and admitted for metabolic encephalitis and acute kidney injury in the setting of recent discharge for presumed sepsis for fungal UTI, and subacute CVA on 09/05. SHAMEKA Secondary to ATN -Baseline creatinine 0.9-1.1. Creatinine continuing to trend up -Urine culture + for VRE faecium, Cherry but asymptomatic. -Sensitive to Daptomycin. Completed Daptomycin x5 days. -ATN possibly secondary to VRE UTI/AIN from immunotherapy -Nephrology consulted. -nivolumab/ipilimumab prior to admission. Both agents can be associated with SHAMEKA/AIN -Pt started on dialysis. -Scheduled for tunneled catheter placement tomorrow AM. -Epogen 1000units x1 during dialysis tomorrow. -Consider slow taper of steroid. Reviewed with oncology, who initially recommended IV methylprednisone. -Start on Tums TID, metoprolol to 50mg BID, increased amlodipine to 10mg. -Continue to trend AM BMP, monitor I&O's. Anemia -Hgb 6.7 09/21, down from 7.9 day before. -Transfused pRBC x2 bags. Post transfusion hgb 9.5 -Trend CBC Altered mental status/Delirium -Pt continues to wax and wane with respect to alertness and orientation. More agitated and confused today. -Other than creatinine, no obvious acute metabolic source. Suspect slow resolving subacute delirium secondary to encephalitis, ATN-SHAMEKA. -Continue to monitor Fever-resolved -Patient w/ temp 38.8 on 09/18. -WBC 13.06 this AM -Blood cultures resulted: negative, urine culture no growth. -Chest XR w/ persistent pulmonary edema w/ increase in b/l pleural effusions, increase in bibasilar and perihilar opacities could reflect pneumonia or pulmonary edema. -Started on IV Zosyn for potential pneumonia source on 09/18. MRSA nares neg. -Stopped Zosyn after afebrile, blood cultures and urine culture negative. -AM CBC, monitor vitals. Encephalitis- resolved -AMS and fever to 38.1 in ED. -Patient received 1 dose of vancomycin in the ER. -Initially thought to be due to Keytruda b/c of side effect profile. -Dr. Herrera of oncology consulted: -Doubtful Keytruda was responsible for encephalitis, as she received her last dose long before for her symptoms started. -Suspects hypophysitis. -AM Cortisol low at 2.29, FSH and LH low at 1.72 & <0.20, respectively, GH and ACTH low. TSH 1.72. -continue IV steroids. -Infectious disease consulted: continue Zosyn Concern of Hypophysitis -Reached out to endocrinology -Wean steroids to 20mg hydrocortisone in the AM, 10mg hydrocortisone in the PM. -Continue to wean Methylprednisolone, 80 mg IV VRE UTI -Urine culture as above (VRE, cherry). -Completed 5 days of Daptomycin. -Monitor I&O's, vitals. HTN -Holding Norvasc and metoprolol. Hx of DVT -Patient on heparin 5000 units q12h for DVT prophylaxis - holding for procedure in am -Holding home Eliquis. Metastatic melanoma -Patient follows with hematology. On Keytruda and hydrocortisone at home. Code: Full code Dispo: Med-Surg with telemetry FEN/GI: Low potassium diet. NPO midnight. DVT Prophylaxis: none (2) SHAMEKA (acute kidney injury): (3) Sepsis: (4) Anemia: (5) Leukocytosis: (6) Adrenal suppression: (7) Cerebrovascular accident (CVA): (8) Fever of unknown origin: (9) Chronic kidney disease, stage III (moderate): (10) History of DVT (deep vein thrombosis): Admission and Anticipated Discharge Date Admission Date: September 09, 2021 Supervising Physician Co-Signing Physician Notes I personally examined the patient and verified all yousif points of history and exam, discussed case, and agree with decision making with Dr Paola rodriguez, asks about procedure tomorrow vitals noted nad delirious breathing unlabored no accessory muscles good effort skin no rashes no pallor or icterus neuro no focal deficits arf - likely ATN from severe prerenal from poor PO intake vs less likely AIN. continue supportive care, again HD, expectant management, TDC hopefully for tomorrow delirium - multifactorial. continue reorientation and supportive care as best as possible septic picture - no clear source, probably from hormonal insufficiencies from hypophysitis- continue corticosteroids - wean slowly (reduce again tomorrow) to hydrocortisone 20am/10afternoon (down to 80mg IV methylpred today), free T4 ok, likely will need repeated in a month or so as well possible VRE UTI - treated otherwise as above Subjective Patient asleep at the bedside this morning. Review of Systems Constitutional: as per Subjective / HPI Physical Exam Constitutional: WD/WN, vitals as above Resting comfortably in bed. Respiratory: Equal chest rise bilaterally, good inspiratory effort. Results & Data Results & Data ([facility]) Vital Signs (Past 12 Hours) Vital Signs Temp Pulse Pulse Resp BP Pulse Ox 09/25/21 00:08 62 09/24/21 23:41 36.7 C 61 18 154/64 H 94 09/24/21 19:00 36.5 C 68 19 151/95 H 97 Resident Activity Tracking Resident Involvement: Resident Care Provided Care Provided: Adult Hospital Medicine (1) Anemia Anemia type: unspecified type Qualified Code(s): D64.9 - Anemia, unspecified (2) Leukocytosis Leukocytosis type: unspecified Qualified Code(s): D72.829 - Elevated white blood cell count, unspecified (3) Sepsis Sepsis acute organ dysfunction status: unspecified Sepsis type: sepsis due to unspecified organism Qualified Code(s): A41.9 - Sepsis, unspecified organism
[2021-09-25 07:04] LABS: Albumin Level 2.6 gm/dl (3.4-5.0); BUN Creatinine Ratio 6.3 (10-20); Calcium 7.8 mg/dl (8.5-10.1); Creatinine Clr Calc Pharmacy 10.8 ml/min; Est GFR (African American) 8.6 ml/min; Est GFR (Non-African American) 7.4 ml/min; Phosphorus 4.9 mg/dl (2.5-4.9); Potassium 3.4 mmol/L (3.5-5.1)
[2021-09-25] MEDS: ASPIRIN 81 MG ECTAB PO SCH (10:25)
[2021-09-25] MEDS: METOPROLOL TARTRATE 25 MG TAB PO SCH ×2 (10:25→20:22)
[2021-09-25] MEDS: methylPREDNISolone 80 MG in SYRINGE 0 ML IV SCH (10:25)
[2021-09-25] MEDS: amLODIPine BESYLATE 5 MG TAB PO SCH (10:25)
[2021-09-25] MEDS: MONTELUKAST SODIUM 10 MG TABLET PO SCH (10:26)
[2021-09-25] MEDS: NEPHROCAPS PO SCH (10:26)
[2021-09-25] MEDS: PANTOprazole 40 MG TAB PO SCH ×2 (10:26→20:22)
--- NOTE | 2021-09-25 10:33 | Nephrology Progress Note ---
Date of Service September 25, 2021 Assessment & Plan (1) SHAMEKA (acute kidney injury): Plan: 76-year-old female with metastatic melanoma, was on nivolumab/ipilimumab, admitted with change in mental status, SHAMEKA ( b/l cr 1.1 to 1.3) , fungal UTI and questionable pneumonia versus pneumonitis. 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 No sign of renal recovery yet, urine output remain low. Started on dialysis on 09/19/21 via right femoral temporary dialysis catheter. Currently clinically stable, vital signs stable except elevated BP. remains dialysis dependent with decreased urine output and sharp rise in creatinine between dialysis treatment. Had dialysis yesterday, currently electrolyte, volume status acceptable. -- Plan for tunneled dialysis catheter tomorrow and removal of temporary dialysis catheter. Dialysis tomorrow after tunneled dialysis catheter placement. Okay to remove Roll[place] catheter. -- Epogen 29565 units x 1 dose tomorrow during dialysis. -- Continue on Tums TIDM. -- Continue Amlodipine 10 mg/d, increase Metoprolol to 50 mg bid -- avoid nephrotoxic medications, dose medications for less than 10 will follow (2) Melanoma: (3) Fever: (4) Chronic kidney disease, stage III (moderate): Plan: * Admission and Anticipated Discharge Date Admission Date: September 09, 2021 Khris Mast was seen and examined in her room this morning. She was awake alert, remains confused but pleasant. Vital signs are stable. She Remains dialysis dependent, urine output low and creatinine rise sharply in between dialysis. No respiratory distress. Blood pressure remains elevated. Had dialysis yesterday and had more than 2 L UF. Amlodipine was increased to 10 mg just yesterday. Review of Systems Review of Systems: Detailed review of system was otherwise unremarkable. Physical Exam Constitutional: WD/WN, vitals as above no acute distress Eyes: + anicteric sclerae Respiratory: no respiratory distress Auscultation: lungs clear to auscultation bilaterally Cardiovascular: Rate/Rhythm: regular rate and regular rhythm Extremities: + vascular access device ( Right femoral temporary dialysis catheter.); no edema Skin: no rashes Neurologic: + confused; no focal motor deficits Psychiatric: Orientation: alert Results & Data ([facility]) Vital Signs (Past 12 Hours) Vital Signs Temp Pulse Pulse Pulse Resp BP BP 09/25/21 07:50 67 09/25/21 07:00 36.3 C L 106 H 14 166/91 H 09/25/21 00:08 62 09/24/21 23:41 36.7 C 61 18 154/64 H Pulse Ox 09/25/21 07:50 09/25/21 07:00 92 09/25/21 00:08 09/24/21 23:41 94 PG Care Time/CCT Total # of Minutes Spent Total Time Spent with Patient: Total time spent is greater than 50% in coordination of care (as documented) at patient's floor/unit and/or counseling patient: Coding Level of Care Code 28805 Subseq Hosp Care Lvl 3 Diagnoses SHAMEKA (acute kidney injury) N17.9 Melanoma C43.9 Fever R50.9 Fever type: unspecified Chronic kidney disease, stage III (moderate) N18.30 (1) Fever Fever type: unspecified Qualified Code(s): R50.9 - Fever, unspecified
[2021-09-25] MEDS: CALCIUM CARBONATE 500 MG CHEWABLE TAB PO SCH ×3 (10:34→16:49)
--- NOTE | 2021-09-25 19:27 | Billing Data ---
Date of Service September 25, 2021 Coding Level of Care Code 54243 Subseq Hosp Care Lvl 3
[2021-09-25] MEDS: ALUMINUM/MAGNESIUM SUSP 30 ML UDC PO PRN (20:24)
--- NOTE | 2021-09-26 06:38 | Hospitalist Progress Note ---
Date of Service September 26, 2021 Assessment & Plan (1) Encephalitis: Plan: 76-year-old female with past medical history HTN, GERD, History of DVT, metastatic melanoma (on Keytruda and oral steroid taper), who presented with fever and altered mental status and admitted for metabolic encephalitis and acute kidney injury in the setting of recent discharge for presumed sepsis for fungal UTI, and subacute CVA on 09/05. SHAMEKA Secondary to ATN -Baseline creatinine 0.9-1.1. Creatinine continuing to trend up -Urine culture + for VRE faecium, Cherry but asymptomatic. -Sensitive to Daptomycin. Completed Daptomycin x5 days. -ATN possibly secondary to VRE UTI/AIN from immunotherapy -Nephrology consulted. -nivolumab/ipilimumab prior to admission. Both agents can be associated with SHAMEKA/AIN -Pt started on dialysis. -Tunneled catheter placed this AM. -Epogen 1000units x1 during dialysis. -Consider slow taper of steroid. Reviewed with oncology, who initially recommended IV methylprednisone. -Start on Tums TID, metoprolol to 50mg BID, increased amlodipine to 10mg. -Continue to trend AM BMP, monitor I&O's. Anemia -Hgb 6.7 09/21, down from 7.9 day before. -Transfused pRBC x2 bags. Post transfusion hgb 9.5 -Trend CBC Altered mental status/Delirium -Pt continues to wax and wane with respect to alertness and orientation. More agitated and confused today. -Other than creatinine, no obvious acute metabolic source. Suspect slow resolving subacute delirium secondary to encephalitis, ATN-SHAMEKA. -Continue to monitor Fever-resolved -Patient w/ temp 38.8 on 09/18. -WBC 13.06 this AM -Blood cultures resulted: negative, urine culture no growth. -Chest XR w/ persistent pulmonary edema w/ increase in b/l pleural effusions, increase in bibasilar and perihilar opacities could reflect pneumonia or pulmonary edema. -Started on IV Zosyn for potential pneumonia source on 09/18. MRSA nares neg. -Stopped Zosyn after afebrile, blood cultures and urine culture negative. -AM CBC, monitor vitals. Encephalitis- resolved -AMS and fever to 38.1 in ED. -Patient received 1 dose of vancomycin in the ER. -Initially thought to be due to Keytruda b/c of side effect profile. -Dr. Herrera of oncology consulted: -Doubtful Keytruda was responsible for encephalitis, as she received her last dose long before for her symptoms started. -Suspects hypophysitis. -AM Cortisol low at 2.29, FSH and LH low at 1.72 & <0.20, respectively, GH and ACTH low. TSH 1.72 -Infectious disease consulted: Course of zosyn completed. Concern of Hypophysitis -Reached out to endocrinology -Wean steroids to 20mg hydrocortisone in the AM, 10mg hydrocortisone in the PM. -Continue to wean Methylprednisolone, 60 mg IV VRE UTI -Urine culture as above (VRE, cherry). -Completed 5 days of Daptomycin. -Monitor I&O's, vitals. HTN -Continue amlodipine and metoprolol as above. Hx of DVT -Patient on heparin 5000 units q12h for DVT prophylaxis - holding for procedure in am -Holding home Eliquis. Metastatic melanoma -Patient follows with hematology. On Keytruda and hydrocortisone at home. Code: Full code Dispo: Med-Surg with telemetry FEN/GI: Low potassium diet. NPO midnight. DVT Prophylaxis: Held for tunneled cath placement. (2) SHAMEKA (acute kidney injury): (3) Sepsis: (4) Anemia: (5) Leukocytosis: (6) Adrenal suppression: (7) Cerebrovascular accident (CVA): (8) Fever of unknown origin: (9) Chronic kidney disease, stage III (moderate): (10) History of DVT (deep vein thrombosis): Admission and Anticipated Discharge Date Admission Date: September 09, 2021 Supervising Physician Co-Signing Physician Notes I personally examined the patient and verified all yousif points of history and exam, discussed case, and agree with decision making with Dr Guevara Resting comfortably no distress vitals noted nad sleeping and appearing comfortable allow patient to rest breathing unlabored no accessory muscles good effort skin no rashes no pallor or icterus neuro no focal deficits arf - likely ATN from severe prerenal from poor PO intake vs AIN possibly Keytruda mediated continue supportive care, again HD, expectant management, TDC today delirium - multifactorial. continue reorientation and supportive care as best as possible septic picture - no clear source, probably from hormonal insufficiencies from hypophysitis- continue corticosteroids - wean slowly (reduced again) to hydrocortisone 20am/10afternoon (down to 60mg IV methylpred), free T4 ok, likely will need repeated in a month or so as well possible VRE UTI - treated otherwise as above Subjective Patient seen at the bedside this morning, asleep in bed resting comfortably. Review of Systems Constitutional: as per Subjective / HPI Physical Exam Constitutional: WD/WN, vitals as above Patient resting comfortably asleep in bed. Respiratory: normal respiratory effort Equal chest rise bilaterally. Results & Data Results & Data ([facility]) Vital Signs (Past 12 Hours) Vital Signs Temp Pulse Pulse Resp BP BP Pulse Ox 09/26/21 03:00 36.6 C 72 18 163/87 H 93 09/25/21 23:00 36.6 C 75 17 164/75 H 93 09/25/21 22:53 63 09/25/21 19:13 36.6 C 73 19 159/93 H 95 Resident Activity Tracking Resident Involvement: Resident Care Provided Care Provided: Adult Hospital Medicine (1) Anemia Anemia type: unspecified type Qualified Code(s): D64.9 - Anemia, unspecified (2) Leukocytosis Leukocytosis type: unspecified Qualified Code(s): D72.829 - Elevated white blood cell count, unspecified (3) Sepsis Sepsis acute organ dysfunction status: unspecified Sepsis type: sepsis due to unspecified organism Qualified Code(s): A41.9 - Sepsis, unspecified organism
[2021-09-26 06:45] LABS: Hemoglobin 9.5 g/dL (12.0-16.0); Mean Corpuscular Hemoglobin 29.3 pg (25-34); Mean Corpuscular Hgb Conc 32.8 g/dL (32-36); Mean Corpuscular Volume 89.5 fL (80-100); Mean Platelet Volume 8.9 fL (7.4-10.4); Platelet Count 183 K/uL (130-400); RDW Coefficient of Variation 18.1 % (11.5-14.5); RDW Standard Deviation 57.2 fL (36.4-46.3); Red Blood Count 3.24 M/uL (4.2-5.4); White Blood Count 12.76 K/uL (4.8-10.8)
[2021-09-26] MEDS: amLODIPine BESYLATE 5 MG TAB PO SCH (07:12)
[2021-09-26] MEDS: CALCIUM CARBONATE 500 MG CHEWABLE TAB PO SCH ×3 (07:12→16:58)
[2021-09-26] MEDS: METOPROLOL TARTRATE 25 MG TAB PO SCH (07:13)
[2021-09-26] MEDS: ASPIRIN 81 MG ECTAB PO SCH (07:13)
[2021-09-26] MEDS: NEPHROCAPS PO SCH (07:13)
[2021-09-26] MEDS: PANTOprazole 40 MG TAB PO SCH ×2 (07:13→21:25)
[2021-09-26] MEDS: MONTELUKAST SODIUM 10 MG TABLET PO SCH (07:13)
[2021-09-26 07:25] LABS: Albumin Level 2.7 gm/dl (3.4-5.0); Anion Gap 12 (3-11); BUN Creatinine Ratio 6.7 (10-20); Blood Urea Nitrogen 43 mg/dl (6-23); Calcium 7.9 mg/dl (8.5-10.1); Carbon Dioxide 24 mmol/L (21-32); Chloride 99 mmol/L (98-107); Creatinine Clr Calc Pharmacy 8.8 ml/min; Est GFR (African American) 6.7 ml/min; Est GFR (Non-African American) 5.8 ml/min; Glucose 75 mg/dl (70-99(Fasting)); Phosphorus 5.8 mg/dl (2.5-4.9); Sodium 135 mmol/L (136-145)
[2021-09-26] MEDS: methylPREDNISolone 80 MG in SYRINGE 0 ML IV SCH (07:26)
--- NOTE | 2021-09-26 07:53 | History & Physical Bridge Note ---
Date of Service September 26, 2021 History & Physical Bridge Note Patient for insertion of permcath today. I have discussed the risks options and benefits of the procedure with the patient's son. The patient's son understands the risks options and benefits and agrees to the procedure. I have examined the patient, reviewed the History & Physical and in the interval since the performance of the History & Physical I have noted the following changes of clinical significance: no changes noted
--- NOTE | 2021-09-26 08:24 | Nephrology Progress Note ---
Date of Service September 26, 2021 Assessment & Plan (1) SHAMEKA (acute kidney injury): Plan: 76-year-old female with metastatic melanoma, was on nivolumab/ipilimumab, admitted with change in mental status, SHAMEKA ( b/l cr 1.1 to 1.3) , fungal UTI and questionable pneumonia versus pneumonitis. SHAMEKA thought to be related to ATN vs immune checkpoint inhibitor associated AIN, no response to steroid. Also concern for hypophysitis, currently on taper dose of steroid. No sign of renal recovery yet, urine output remain low. Started on dialysis on 09/19/21 via right femoral temporary dialysis catheter. She remains dialysis dependent with decreased urine output and sharp rise in creatinine between dialysis treatment. -- having tunneled dialysis catheter this morning. -- Epogen 29717 units x 1 dose during dialysis this afternoon. -- Continue on renal vitamins daily and Tums TIDM. -- Continue Amlodipine 10 mg/d, increase Metoprolol to 50 mg bid -- avoid nephrotoxic medications, dose medications for less than 10 will follow (2) Melanoma: (3) Fever: (4) Chronic kidney disease, stage III (moderate): Plan: * Admission and Anticipated Discharge Date Admission Date: September 09, 2021 Subjective Kezia Just left for OR to have tunneled catheter placed. Discuss with her nurse, she has been overall doing well there was no overnight events. Remains slightly confused but awake and alert. Remains dialysis dependent, urine output low and creatinine rise sharply in between dialysis. Review of Systems Review of Systems: Detailed review of system was otherwise unremarkable. Physical Exam Skin: no rashes Neurologic: + confused; no focal motor deficits Psychiatric: Orientation: alert Results & Data ([facility]) Vital Signs (Past 12 Hours) Vital Signs Temp Pulse Pulse Pulse Resp BP Pulse Ox 09/26/21 08:01 36.7 C 85 18 173/91 H 92 09/26/21 07:00 80 09/26/21 03:00 36.6 C 72 18 163/87 H 93 09/25/21 23:00 36.6 C 75 17 164/75 H 93 09/25/21 22:53 63 PG Care Time/CCT Total # of Minutes Spent Total Time Spent with Patient: Total time spent is greater than 50% in coordination of care (as documented) at patient's floor/unit and/or counseling patient: Coding Level of Care Code 54557 Subseq Hosp Care Lvl 2 Diagnoses SHAMEKA (acute kidney injury) N17.9 Melanoma C43.9 Fever R50.9 Fever type: unspecified Chronic kidney disease, stage III (moderate) N18.30 (1) Fever Fever type: unspecified Qualified Code(s): R50.9 - Fever, unspecified
[2021-09-26] MEDS ORDERED: EPOETIN ALFA 10,000 UNITS/ML VIAL IV ONE (09:00)
[2021-09-26] MEDS: METOPROLOL TARTRATE 50 MG TAB PO SCH ×2 (09:03→21:25)
[2021-09-26] MEDS: methylPREDNISolone 60 MG in SYRINGE 0 ML IV SCH (09:04)
[2021-09-26] MEDS ORDERED: ePHEDrine sulfate 50 MG/ML AMP IV PRN (09:58)
[2021-09-26] MEDS ORDERED: ONDANSETRON INJ 2 MG/ML 2 ML VIAL IV PRN (09:58)
[2021-09-26] MEDS ORDERED: fentaNYL citrate 100 MCG/2 ML VIAL IV PRN (09:58)
[2021-09-26] MEDS ORDERED: ATROPINE SULFATE 0.1 MG/ML 10ML SYR IV PRN (09:58)
--- NOTE | 2021-09-26 09:58 | Anesthesiology Consultation ---
Date of Service September 26, 2021 Assessment & Plan Chart Review Chart Review: Acceptable Risk for Surgery and Patient NOT seen in Pre Admission Testing Consults Requested none ASA ASA4 Proposed Anesthesia Anesthesia Type: MAC Risk / Benefits Reviewed With: PT / POA / Parent / Guardian, Accepts Plan and Informed Consent Obtained History Surgery Operation Date: 09/18/21 08:15 Proposed Procedures p Tunneled Hemodialysis Catheter Insertion - Juan Abbott DO Operation Date: 09/23/21 08:55 Proposed Procedures p Perm Catheter Placement - Arslan Michelle MD Operation Date: 09/26/21 08:50 Proposed Procedures p Perm Catheter Placement - Arslan Michelle MD Height/Weight Height: 5 ft 7 in Weight: 97.6 kg Allergies Allergy/AdvReac Type Severity Reaction Status Date / Time tramadol Allergy Mild NASUEA/CONF Verified 09/09/21 19:34 USION cephalexin [From Keflex] AdvReac Mild upset Verified 09/09/21 19:34 stomach Medications Home Medications Medication Instructions Recorded Confirmed Last Taken amlodipine 5 mg tablet (Norvasc) 5 mg PO QAM 12/05/18 09/09/21 09/09/21 cholecalciferol (vitamin D3) 25 25 mcg PO QAM 12/11/19 09/09/21 09/09/21 mcg (1,000 unit) tablet (Vitamin D3) metoprolol tartrate 25 mg tablet 12.5 mg PO BID 03/26/20 09/09/21 09/09/21 08:30 diphenhydramine HCl 25 mg capsule 25 mg PO HS PRN cap 03/28/20 09/09/21 07:00 (Benadryl) multivitamin 1 tab PO QAM 04/25/20 09/09/21 09/09/21 cetirizine 10 mg tablet (Zyrtec) 10 mg PO QAM 01/14/21 09/09/21 09/09/21 montelukast 10 mg tablet 10 mg PO DAILY 08/15/21 09/09/21 09/09/21 nystatin 100,000 unit/mL oral 5 ml PO QID #140 ml 08/21/21 09/09/21 09/09/21 12:30 suspension aspirin 81 mg tablet,delayed 81 mg PO QAM #30 tab 09/03/21 09/09/2122 release atorvastatin 40 mg tablet 40 mg PO QAM #30 tab 09/03/21 09/09/21 09/09/21 apixaban 2.5 mg tablet (Eliquis) 2.5 mg PO BID #60 tab 09/05/21 09/09/21 09/09/21 08:30 ferrous sulfate 325 mg (65 mg 325 mg PO QAM #30 tab 09/05/21 09/09/21 09/09/21 iron) tablet,delayed release hydrocortisone 10 mg tablet 10 mg PO HS #30 tab 09/05/21 09/09/21 09/08/21 (Cortef) hydrocortisone 10 mg tablet 20 mg PO QAM #60 tab 09/05/21 09/09/21 09/09/21 (Cortef) pantoprazole 40 mg tablet,delayed 40 mg PO BID #60 tab 09/05/21 09/09/21 09/09/21 08:30 release acetaminophen 325 mg tablet 650 mg PO Q6H PRN 09/09/21 09/09/21 09/09/21 13:30 (Tylenol) levofloxacin 750 mg tablet 750 mg PO QPM 09/09/21 09/09/21 09/08/21 prednisone 10 mg tablet See Rx Instructions .ROUTE .COMPLEX 09/09/21 09/09/21 09/09/21 1ST DAY OF 20 MG promethazine 25 mg tablet 25 mg PO Q6H PRN 09/09/21 09/09/21 Unknown Active Medications Generic Name Dose Route Start Last Admin Trade Name Freq PRN Reason Stop Dose Admin Acetaminophen 650 mg 09/09/21 21:20 09/24/21 17:20 Acetaminophen 325 Mg Tab PO 10/09/21 21:19 650 mg Q4H PRN Administration Pain or Fever Al Hydrox/Mg Hydrox/Simethicone 15 ml 09/09/21 21:20 09/25/21 20:24 Aluminum/Magnesium Susp 30 Ml Udc PO 10/09/21 21:19 15 ml Q4H PRN Administration Dyspepsia Amlodipine Besylate 10 mg 09/24/21 09:00 09/26/21 07:12 Amlodipine Besylate 5 Mg Tab PO 10/24/21 08:59 Not Given QAM [facility] Aspirin 81 mg 09/10/21 09:00 09/26/21 07:13 Aspirin 81 Mg Ectab PO 10/10/21 08:59 Not Given QAM [facility] Calcium Carbonate 500 mg 09/22/21 12:00 09/26/21 07:12 Calcium Carbonate 500 Mg Chewable Tab PO 10/22/21 11:59 Not Given TIDM DAVID Heparin Sodium (Porcine) 5,000 units 09/09/21 21:20 09/17/21 09:39 Heparin Sod 5,000 Unit/0.5 Ml Vial SQ 10/09/21 21:19 5,000 units Q12 DAVID Administration Methylprednisolone 60 mg/ 0.96 mls @ 1.5 mls/min 09/26/21 09:00 09/26/21 09:04 Syringe IV 10/26/21 08:59 Not Given DAILY DAVID Metoprolol Tartrate 50 mg 09/26/21 09:00 09/26/21 09:03 Metoprolol Tartrate 50 Mg Tab PO 10/26/21 08:59 Not Given BID DAVID Montelukast Sodium 10 mg 09/10/21 09:00 09/26/21 07:13 Montelukast Sodium 10 Mg Tablet PO 10/10/21 08:59 Not Given DAILY [facility] Ondansetron HCl 4 mg 09/09/21 21:20 09/20/21 02:20 Ondansetron Inj 2 Mg/Ml 2 Ml Vial IV 10/09/21 21:19 4 mg Q6H PRN Administration Nausea Pantoprazole Sodium 40 mg 09/09/21 21:20 09/26/21 07:13 Pantoprazole 40 Mg Tab PO 10/09/21 21:19 Not Given BID [facility] Vitamin B Complex/Folic Acid 1 cap 09/17/21 10:30 09/26/21 07:13 Nephrocaps PO 10/17/21 10:29 Not Given QAM DAVID NPO Date Last Intake of Fluids: 09/25/21 Time Last Intake of Fluids: 20:00 Date Last Intake of Solids: 09/25/21 Time Last Intake of Solids: 18:00 Past Medical History Medical History Cerebral infarct "Presumed old right frontal lobe cerebral infarct" - per Dec 2019 PET scan -- pt unaware/denies 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 No chemo or XRT GERD (gastroesophageal reflux disease) Hearing deficit Hiatal hernia Hx of pulmonary embolus 2019 s/p foot surgery, was on Eliquis for a few months. 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 Tinsley Exercise / Class Metabolic Activity II 4-5 Yardwork/Stairs/Walk up hill Past Family History Family History Mother Hearing loss Cancer Sister Hearing loss Cancer Other Breast cancer Family history non-contributory No family history of adverse response to anesthesia No family history of bleeding disorder Past Surgical History Surgical History H/O excision of mass History of ankle surgery RECONSTRUCTION OF LEFT ANKLE History of biopsy History of cataract surgery History of colonoscopy History of esophagogastroduodenoscopy (EGD) History of laryngoscopy Hx of bladder repair surgery Hx of foot surgery reconstructive right foot surgery (2018) Hx of hysterectomy Hx of total knee replacement RIGHT AND LEFT Hx of tubal ligation PONV (postoperative nausea and vomiting) Past Anesthesia History No Hx of Anesthesia Complications and No Family Hx of Anesthesia Complications History of PONV No Hx of PONV and No Hx of Motion Sickness Social History Smoking Status: Never smoker tobacco type: cigarettes Hx Alcohol Use: No Alcohol type: beer alcohol intake frequency: holidays/special occasions only Hx Substance Use: No substance use type: does not use Physical Exam Vital Signs Last Vital Signs Temp 36.7 C 09/26/21 09:35 Pulse 84 09/26/21 09:35 Resp 18 09/26/21 09:35 BP 172/92 H 09/26/21 09:35 Pulse Ox 88 L 09/26/21 09:35 Constitutional + obese ENMT Mouth: no dentition abnormality Thyromental Distance: > or= 3.5 Finger Breadths Mallampati Class: II Neck normal visual inspection Respiratory normal respiratory effort coarse breath sounds bilaterally Cardiovascular Rate/Rhythm: regular rate and regular rhythm Psychiatric Orientation: alert Testing Laboratory Results 09/26/21 06:14 09/26/21 06:14 PT 11.4 Seconds (9.0-12.0) 09/15/21 05:20 INR 1.1 (0.9-1.1) 09/15/21 05:20 APTT 32.2 Seconds (21.0-31.0) H 09/09/21 17:08 Urine Color Red 09/09/21 19:10 Urine Appearance Turbid (Clear) A 09/09/21 19:10 Urine pH 5.5 (4.5-7.5) 09/09/21 19:10 Ur Specific [place] 1.020 (1.000-1.030) 09/09/21 19:10 Urine Protein 3+ (Negative) H 09/09/21 19:10 Urine Glucose (UA) Trace (Negative) H 09/09/21 19:10 Urine Ketones Trace (Negative) H 09/09/21 19:10 Urine Nitrite Positive (Negative) A 09/09/21 19:10 Ur Leukocyte Esterase Trace (Negative) H 09/09/21 19:10 Urine RBC >30 /hpf (0-4) H 09/09/21 19:10 Urine WBC >30 /hpf (0-5) H 09/09/21 19:10 Ur Epithelial Cells 0-5 /lpf (0-5) 09/09/21 19:10 Blood Type A Positive 09/20/21 05:59 Antibody Screen NEGATIVE 09/20/21 05:59 09/18/21 07:10 Aerobic Blood Culture - Final Blood No growth in Aerobic bottle after 5 days. Anaerobic Blood Culture - Final No growth in Anaerobic bottle after 5 days. 09/18/21 07:03 Aerobic Blood Culture - Final Blood No growth in Aerobic bottle after 5 days. Anaerobic Blood Culture - Final No growth in Anaerobic bottle after 5 days. 09/19/21 09:37 Urine Culture - Final Urine,Indwelling Cath No growth - less than 1,000 colonies/mL. 09/18/21 07:03 Fungal Smear - Final Blood Fungal Culture - Preliminary No yeast or fungus isolated - Report 1, Additional Report to Follow. 09/09/21 17:08 Aerobic Blood Culture - Final Blood No growth in Aerobic bottle after 5 days. Anaerobic Blood Culture - Final No growth in Anaerobic bottle after 5 days. 09/09/21 17:35 Aerobic Blood Culture - Final Blood No growth in Aerobic bottle after 5 days. Anaerobic Blood Culture - Final No growth in Anaerobic bottle after 5 days. 09/09/21 19:10 Urine Culture - Final Urine,Indwelling Cath Enterococcus faecium VRE Cherry albicans/dubliniensis
[2021-09-26] MEDS ORDERED: LIDOCAINE 2% 2 ML VIAL/AMP(20MG/ML) INFIL ONE (10:00)
[2021-09-26] MEDS ORDERED: PROPOFOL IV EMULSION 10 MG/ML 20 ML VIAL IV ONE (10:00)
[2021-09-26] MEDS ORDERED: HEPARIN SOD (PORCINE) 5,000 UNITS/ML VIAL ONE ×3 (10:02→11:35)
[2021-09-26] MEDS ORDERED: fentaNYL citrate 100 MCG/2 ML VIAL ONE (10:05)
[2021-09-26] MEDS ORDERED: ceFAZolin 330 MG/ML 1 GM VIAL ONE (10:26)
[2021-09-26] MEDS ORDERED: ACETAMINOPHEN 1000 MG/100 ML IV IV ONE (10:28)
[2021-09-26] MEDS ORDERED: LIDOCAINE 1% LOCAL 20 ML VIAL INFIL ONE (11:38)
--- NOTE | 2021-09-26 11:38 | Post Operative Brief Note ---
Immediate Post Op Note v1 Date of Surgery September 26, 2021 Pre & Post Diagnosis Operation Date: 09/18/21 08:15 Pre-Op Diagnosis: Acute Kidney Injury Post-Op Diagnosis: Acute Kidney Injury Operation Date: 09/23/21 08:55 <No data on this case meets the specified criteria> Operation Date: 09/26/21 08:50 Pre-Op Diagnosis: Acute Kidney Injury Post-Op Diagnosis: Acute Kidney Injury I identified the patient and participated in the time-out.: Yes Procedure Operation Date: 09/18/21 08:15 Actual Procedures p Insertion of Temporary Dialysis Catheter, Right Femoral Approach, Ultrasound Localization of Right Femoral Artery, Fluroscopy for Positioning(Right) - Juan Abbott DO Operation Date: 09/23/21 08:55 <No data on this case meets the specified criteria> Operation Date: 09/26/21 08:50 Actual Procedures p Perm Catheter Placement, Left Jugular Vein Approach, Ultrasound Localization of Left Jugular Vein, Fluorosocpy for Positioning(Left) - Arslan Michelle MD Surgeon Arslan Michelle MD Aircraft Steel Fabricator MD Victorino Estimated Blood Loss 10 Findings Consistent with Post-Op Diagnosis Anesthesia Type MAC Complications none Disposition Accompanied Patient To Recovery: No Disposition: Recovery Room
[2021-09-26] MEDS ORDERED: OPTIRAY 300 IV PRN (11:41)
--- NOTE | 2021-09-26 11:50 | Procedure Note ---
Angiogram Post Procedure Fluoroscopy Time (minutes): 9.3 Radiation (mGy): 190 Contrast: 10 Post Operative Report Pre & Post Diagnosis Operation Date: 09/18/21 08:15 Pre-Op Diagnosis: Acute Kidney Injury Post-Op Diagnosis: Acute Kidney Injury Operation Date: 09/23/21 08:55 <No data on this case meets the specified criteria> Operation Date: 09/26/21 08:50 Pre-Op Diagnosis: Acute Kidney Injury Post-Op Diagnosis: Acute Kidney Injury I identified the patient and participated in the time-out.: Yes Procedure Operation Date: 09/18/21 08:15 Actual Procedures p Insertion of Temporary Dialysis Catheter, Right Femoral Approach, Ultrasound Localization of Right Femoral Artery, Fluroscopy for Positioning(Right) - Juan Abbott DO Operation Date: 09/23/21 08:55 <No data on this case meets the specified criteria> Operation Date: 09/26/21 08:50 Actual Procedures p Perm Catheter Placement, Left Jugular Vein Approach, Ultrasound Localization of Left Jugular Vein, Fluorosocpy for Positioning(Left) - Arslan Michelle MD Surgeon Arslan Michelle MD Practice Specialist MD Victorino Estimated Blood Loss 15 Findings Consistent with Post-Op Diagnosis see operative report Specimens none Anesthesia Type MAC Complications none immediate Disposition Accompanied Patient To Recovery: No Disposition: Recovery Room Indications This is a 76 year old female with acute renal failure with need for hemodialysis access. She presents for perm cath placement. Description of Procedure Patient was taken to the angio suite and placed in the supine position. The left side of the neck and chest wall were prepped and draped in a sterile manner. A team timeout was performed Local anesthesia was then administered to the appropriate areas of the neck and chest wall. Ultrasound was then used to locate the left internal jugular vein. The vein compressed easily, had no filing defects, and was patent. The vein was then punctured under direct ultrasound imaging. A guidewire was then passed centrally under fluoroscopic imaging. The guidewire was not able to be advanced into the superior vena cava. Therefore we took out the needle, made a skin teja, and placed a 5F sheath. A glidewire and a kumpe catheter were used to get into the superior vena cava and the wire was passed centrally. A stab wound was then made in the anterior chest wall and a 19 cm permcath was passed from the stab wound on the chest wall to the puncture site on the neck. The puncture site was then dilated till the 14Fr peel away sheath was inserted. The permcath was then inserted through the sheath and it was passed over the wire to a central position. The tip was in the innominate vein so the decision was made to instead place a 23cm perm cath. Due to the difficulty in getting into the SVC we wanted to keep our wire in place therefore we walked the catheter out and pulled the wire up through the neck i ncision. A new peel away sheath was advanced. We passed the 23cm perm cath from the anterior chest wall incision to the neck incision and threaded this over the wire into the peel away sheath. This was attempted to be passed centrally however also got hung up at the curve between the innominate vein and the superior vena cava. Ultimately we placed a stiff glidewire through one port and a souleymane wire through another port and we were able to pass the catheter so that its tip was in the cavoatrial junction. The peel away sheath was removed. The catheter was then sutured in place using nylon sutures. The puncture was then closed using a 4-0 Vicryl subcuticular suture. Dermabond was used for a dressing on the puncture site. Both ports aspirated and flushed easily and were then packed with heparin. A sterile dressing was applied to the catheter. The right femoral venous temporary catheter was removed and manual pressure was held. A dry dressing was placed to the right groin. The patient left the angio suite in good condition and tolerated the procedure well. At the conclusion of the case all counts were correct. Dr. Michelle remained present and scrubbed for the entirety of the procedure. I attest to the content of the Intraoperative Record and any orders documented therein. Any exceptions are noted below.
--- NOTE | 2021-09-26 12:56 | Anesthesiology Progress Note ---
Date of Service September 26, 2021 Anesthesia Post Procedure Vital Signs Vital Signs: Temp Pulse Pulse Pulse Resp BP BP 09/26/21 12:50 83 18 107/62 09/26/21 12:40 92 H 18 136/75 09/26/21 12:30 72 12 125/64 09/26/21 12:20 74 19 122/73 09/26/21 12:13 36.8 C 74 22 120/68 09/26/21 09:35 36.7 C 84 18 172/92 H 09/26/21 08:01 36.7 C 85 18 173/91 H 09/26/21 07:00 80 09/26/21 03:00 36.6 C 72 18 163/87 H 09/25/21 23:00 36.6 C 75 17 164/75 H 09/25/21 22:53 63 09/25/21 19:13 36.6 C 73 19 159/93 H 09/25/21 15:30 36.8 C 98 H 14 147/94 H 09/25/21 14:50 74 Pulse Ox 09/26/21 12:50 95 09/26/21 12:40 95 09/26/21 12:30 94 09/26/21 12:20 92 09/26/21 12:13 92 09/26/21 09:35 88 L 09/26/21 08:01 92 09/26/21 07:00 09/26/21 03:00 93 09/25/21 23:00 93 09/25/21 22:53 09/25/21 19:13 95 09/25/21 15:30 91 09/25/21 14:50 Pain Intensity Head: Pain Intensity: 5 Left Hip: Pain Intensity: 5 Transfer of Care Handoff Completed per policy Notes Mental Status: alert / awake / arousable Patient Amnestic to Procedure: Yes Nausea / Vomiting: adequately controlled Pain: adequately controlled Airway Patency, RR, SpO2: stable & adequate BP & HR: stable & adequate Hydration State: stable & adequate Anesthetic Complications: no major complications apparent
--- NOTE | 2021-09-26 17:20 | Billing Data ---
Date of Service September 26, 2021 Coding Level of Care Code 14574 Subseq Hosp Care Lvl 2
[2021-09-27 06:48] LABS: Albumin Level 2.8 gm/dl (3.4-5.0); BUN Creatinine Ratio 5.8 (10-20); Calcium 7.7 mg/dl (8.5-10.1); Creatinine Clr Calc Pharmacy 12.7 ml/min; Est GFR (African American) 10.7 ml/min; Est GFR (Non-African American) 9.2 ml/min; Phosphorus 4.2 mg/dl (2.5-4.9); Potassium 3.2 mmol/L (3.5-5.1)
[2021-09-27] MEDS: ACETAMINOPHEN 325 MG TAB PO PRN ×2 (07:59→23:16)
[2021-09-27] MEDS: ASPIRIN 81 MG ECTAB PO SCH (08:03)
[2021-09-27] MEDS: METOPROLOL TARTRATE 50 MG TAB PO SCH ×2 (08:03→19:56)
[2021-09-27] MEDS: MONTELUKAST SODIUM 10 MG TABLET PO SCH (08:03)
[2021-09-27] MEDS: NEPHROCAPS PO SCH (08:03)
[2021-09-27] MEDS: PANTOprazole 40 MG TAB PO SCH ×2 (08:03→19:56)
[2021-09-27] MEDS: amLODIPine BESYLATE 5 MG TAB PO SCH (08:04)
[2021-09-27] MEDS: CALCIUM CARBONATE 500 MG CHEWABLE TAB PO SCH ×3 (08:04→16:51)
[2021-09-27] MEDS: HEPARIN SOD 5,000 UNIT/0.5 ML VIAL SQ SCH ×2 (08:04→19:58)
--- NOTE | 2021-09-27 08:17 | Hospitalist Progress Note ---
Date of Service September 27, 2021 Assessment & Plan (1) Encephalitis: Plan: 76-year-old female with past medical history HTN, GERD, History of DVT, metastatic melanoma (on Keytruda and oral steroid taper), who presented with fever and altered mental status and admitted for metabolic encephalitis and acute kidney injury in the setting of recent discharge for presumed sepsis for fungal UTI, and subacute CVA on 09/05. Fever -Patient w/ temp 38.6 on 09/27, also hypoxia to 80s O2%. Initiated sepsis workup for possible pneumonia concern -CRP 7.84, Procalcitonin 1.39, CXR with small b/l pleural effusions and no focal consolidations -BCx and MRSA swab pending -Initiated empiric Zosyn, will adjust abx pending MRSA swab and clinical course -Trend CBC, CRP, procalcitonin SHAMEKA Secondary to ATN -Baseline creatinine 0.9-1.1. Cr at 4.33 currently following dialysis -Urine culture + for VRE faecium, Cherry but asymptomatic. Completed Daptomycin x5 days. -ATN possibly secondary to VRE UTI/AIN from immunotherapy -Nephrology consulted. -nivolumab/ipilimumab prior to admission. Both agents can be associated with SHAMEKA/AIN -Pt started on dialysis. -Epogen 1000units x1 during dialysis. -Slow taper of steroid reviewed with oncology, who initially recommended IV methylprednisone. -Tums TID, metoprolol 50mg BID, amlodipine 10mg. -Continue to trend AM BMP, monitor I&O's. Anemia -Hgb 6.4 on 09/21, transfused pRBC x2 bags. Post transfusion hgb 9.5 -Hgb 9.5 on 09/26, stable -Trend CBC Altered mental status/Delirium -Pt continues to wax and wane with respect to alertness and orientation -Other than creatinine, no obvious acute metabolic source. Suspect slow resolving subacute delirium secondary to encephalitis, ATN-SHAMEKA. -Continue to monitor Encephalitis- resolved -AMS and fever to 38.1 in ED. -Patient received 1 dose of vancomycin in the ER. -Initially thought to be due to Keytruda b/c of side effect profile. -Dr. Herrera of oncology consulted: -Doubtful Keytruda was responsible for encephalitis, as she received her last dose long before for her symptoms started. -Suspects hypophysitis. -AM Cortisol low at 2.29, FSH and LH low at 1.72 & <0.20, respectively, GH and ACTH low. TSH 1.72 Concern of Hypophysitis -Reached out to endocrinology -Wean steroids- currently 20mg hydrocortisone in the AM, 10mg hydrocortisone in the PM. -Continue to wean Methylprednisolone. Currently 60 mg IV and will keep at this dose for today given concern for infection VRE UTI -Urine culture as above (VRE, cherry). -Completed 5 days of Daptomycin. -Monitor I&O's, vitals. HTN -Continue amlodipine and metoprolol as above. Hx of DVT -Resume heparin 5000 units q12h for DVT prophylaxis, -Holding home Eliquis. Metastatic melanoma -Patient follows with hematology. On Keytruda and hydrocortisone at home. Code: Full code Dispo: Med-Surg with telemetry FEN/GI: Low potassium diet DVT Prophylaxis: Resume heparin (2) SHAMEKA (acute kidney injury): (3) Sepsis: (4) Anemia: (5) Leukocytosis: (6) Adrenal suppression: (7) Cerebrovascular accident (CVA): (8) Fever of unknown origin: (9) Chronic kidney disease, stage III (moderate): (10) History of DVT (deep vein thrombosis): Admission and Anticipated Discharge Date Admission Date: September 09, 2021 Supervising Physician Co-Signing Physician Notes I personally examined the patient and verified all yousif points of history and exam, discussed case, and agree with decision making with Dr Roberts Sleeping, does not really arouse very easily. Does not appear to be in any physical distress, discomfort, respiratory distress. vitals noted nad resting comfortably but does not really stir to physical or verbal stim. Cardio regular without rubs murmurs or gallops. Lungs with difficult exam moderate spontaneous effort but no rales rhonchi or wheezes, no accessory muscle use. Abdomen soft nondistended nontender no masses organomegaly. Skin without rashes erythema no erythema arounds line site the best I can see. No calf tenderness Feverconcerning for a new septic process given her immunocompromise and prolonged hospitalization, as well as procedures. That said it could be as simple as atelectasis or another nonspecific fever. Given concern on infection, blood cultures, urine culture are pending. Chest x-ray without infiltrates. CRP and Pro-Luis Carlos up and concerningto that end empiric antibiotics, serial exams. Doubt clotting pathology causing fever although definitely need to continue to follow closely (is on heparin subcu). Her previous septic pictures ended up more consistent with an inflammatory immunologic response than an infectionso this is possible, but she is still on 60 mg IV methylprednisolone so that seems to be less likely arf - likely ATN from severe prerenal from poor PO intake vs AIN possibly Keytruda mediated continue supportive care, expectant management, TDC placed, ongoing hemodialysis delirium - multifactorial. continue reorientation and supportive care as best as possible septic picture - no clear source, probably from hormonal insufficiencies from hypophysitis- continue corticosteroids - wean slowly down to hydrocortisone 20am/10afternoon (down to 60mg IV methylpred), free T4 ok, likely will need repeated in a month or so as well possible VRE UTI - treated otherwise as above Subjective No acute events overnight. Interview limited by pt's low volume and paucity of speech. She appeared to indicate she wasn't feeling as well today. Review of Systems Constitutional: as per Subjective / HPI Physical Exam Constitutional: WD/WN, vitals as above no acute distress Eyes: + anicteric sclerae Respiratory: no respiratory distress Auscultation: lungs clear to auscultation bilaterally Cardiovascular: Rate/Rhythm: regular rate and regular rhythm Psychiatric: Orientation: alert Results & Data Results & Data ([facility]) Vital Signs (Past 12 Hours) Vital Signs Temp Pulse Pulse Resp BP BP Pulse Ox 09/27/21 07:56 38.6 C H 115 H 21 167/96 H 89 L 09/27/21 07:00 109 H 09/27/21 03:00 37.1 C 72 20 158/79 H 98 09/26/21 23:00 37.1 C 61 62 16 142/66 H 98 09/26/21 21:25 74 154/74 H Resident Activity Tracking Resident Involvement: Resident Care Provided Care Provided: Adult Hospital Medicine (1) Anemia Anemia type: unspecified type Qualified Code(s): D64.9 - Anemia, unspecified (2) Leukocytosis Leukocytosis type: unspecified Qualified Code(s): D72.829 - Elevated white blood cell count, unspecified (3) Sepsis Sepsis acute organ dysfunction status: unspecified Sepsis type: sepsis due to unspecified organism Qualified Code(s): A41.9 - Sepsis, unspecified organism
[2021-09-27] MEDS: methylPREDNISolone 60 MG in SYRINGE 0 ML IV SCH (08:20)
--- NOTE | 2021-09-27 09:28 | XRay Report ---
XR chest 2V PA/lateral CLINICAL HISTORY: fever, ?infiltrate TECHNIQUE: 2 views of the chest were obtained. Comparison: Comparison is made to chest radiograph 09/18/2021 FINDINGS: A dual-lumen venous catheter is seen. Calcified aortic knob is seen. The lungs are clear. Small bilat eral pleural effusions are seen. IMPRESSION: Small bilateral pleural effusions are seen. No evidence of airspace opacity to suggest pneumonia. ACT 112: Negative or not required by law. Electronically signed by: Salomón Guerrero M.D. 09/27/2021 9:26 AM
[2021-09-27] MEDS ORDERED: PIPERACILLIN/TAZOBACTAM 3.375 GM in DEXTROSE 5% 100 ML IV STA (11:52)
--- NOTE | 2021-09-27 12:49 | Nephrology Progress Note ---
Date of Service September 27, 2021 Assessment & Plan (1) SHAMEKA (acute kidney injury): Plan: SHAMEKA thought to be related to ATN vs immune checkpoint inhibitor (nivolumab/ipilimumab) associated AIN. Started HD 09/19/21 via R femoral catheter. LIJ TDC placed by Dr. Michelle 09/26/21. HD completed yesterday with adequate clearance and UF (2L). Tolerating HD well. Volume status acceptable. Electrolytes controlled. No signs of renal recovery. Medications appropriately dosed for kidney dysfunction. Remains on slow methylprednisolone taper. (2) Chronic kidney disease, stage III (moderate): Plan: Baseline creatinine 1.1 to 1.3 mg/dL. (3) Anemia: Plan: Epogen 11550 units x 1 dose provided with HD yesterday. (4) Hypertension: Plan: Euvolemic. BP acceptable. Remains on amlodipine and metoprolol. Metoprolol increased yesterday. Admission and Anticipated Discharge Date Admission Date: September 09, 2021 Subjective No acute events overnight. Tolerated HD yesterday. Oozing of blood from around TDC exit site during HD. Improved with pressure dressing placement. Review of Systems Review of Systems: All systems reviewed & are unremarkable except as noted in HPI & below Limited responses from patient. Denied pain. Physical Exam Constitutional: no acute distress, not malnourished and not edematous Eyes: + anicteric sclerae; no corneal abnormality ENMT: Ears: + hearing impairment Mouth: no oral mucosal abnormality and oral mucous membranes not dry Neck: normal visual inspection and trachea midline Respiratory: normal respiratory effort Auscultation: lungs clear to auscultation bilaterally Cardiovascular: Rate/Rhythm: regular rate Heart Sounds: normal S1, normal S2 and + murmur Extremities: + edema (non pitting and pedal edema in both legs, dependent edema) L IJ TDC with pressure dressing intact Musculoskeletal: Extremities: no cyanosis and no clubbing Skin: normal turgor; no lesions Neurologic: Motor/Sensory: no tremor and no asterixis Psychiatric: Orientation: alert opens eyes to voice but minimal response to questions - endorses some pain from dialysis catheter Results & Data ([facility]) Vital Signs (Past 12 Hours) Vital Signs Temp Pulse Pulse Resp BP BP Pulse Ox 09/27/21 11:39 36.7 C 70 15 119/60 97 09/27/21 07:56 38.6 C H 115 H 21 167/96 H 89 L 09/27/21 07:00 109 H 09/27/21 03:00 37.1 C 72 20 158/79 H 98 Laboratory Results Laboratory Results - last 24 hr 09/27/21 09/27/21 09/27/21 05:44 09:37 09:37 Sodium 136 Potassium 3.2 L Chloride 98 Carbon Dioxide 28 Anion Gap 10 BUN 25 H Creatinine 4.33 H D Est Cr Clr Drug Dosing 12.7 Est GFR ( Amer) 10.7 Est GFR (Non-Af Amer) 9.2 BUN/Creatinine Ratio 5.8 L Glucose 74 Calcium 7.7 L Phosphorus 4.2 D C-Reactive Protein 7.84 H Albumin 2.8 L Procalcitonin 1.39 H Nasal Screen MRSA (PCR) 09/27/21 11:34 Sodium Potassium Chloride Carbon Dioxide Anion Gap BUN Creatinine Est Cr Clr Drug Dosing Est GFR ( Amer) Est GFR (Non-Af Amer) BUN/Creatinine Ratio Glucose Calcium Phosphorus C-Reactive Protein Albumin Procalcitonin Nasal Screen MRSA (PCR) Pending PG Care Time/CCT Total # of Minutes Spent Total Time Spent with Patient: Total time spent is greater than 50% in coordination of care (as documented) at patient's floor/unit and/or counseling patient: Coding Level of Care Code 15623 Subseq Hosp Care Lvl 3 Diagnoses SHAMEKA (acute kidney injury) N17.9 Chronic kidney disease, stage III (moderate) N18.30 Anemia D64.9 Hypertension I10
--- NOTE | 2021-09-27 15:52 | Billing Data ---
Date of Service September 27, 2021 Coding Level of Care Code 17270 Subseq Hosp Care Lvl 3
[2021-09-27] MEDS: PIPERACILLIN/TAZOBACTAM 3.375 GM in DEXTROSE 5% 100 ML IV SCH (19:55)
[2021-09-27] MEDS ORDERED: HEPARIN SOD 5,000 UNIT/0.5 ML VIAL SQ SCH (21:00)
[2021-09-28 07:15] LABS: Basophils # (auto) 0.01 K/uL (0-0.2); Basophils % (auto) 0.2 %; Eosinophils # (auto) 0.07 K/uL (0-0.5); Eosinophils % (auto) 1.4 %; Hematocrit (blood only) 26.1 % (37-47); Hemoglobin 8.3 g/dL (12.0-16.0); Immature Granulocytes # (auto) 0.01 K/uL (0.00-0.02); Immature Granulocytes % (auto) 0.2 %; Lymphocytes # (auto) 0.81 K/uL (1.2-3.4); Lymphocytes % (auto) 15.7 %; Mean Corpuscular Hemoglobin 29.3 pg (25-34); Mean Corpuscular Hgb Conc 31.8 g/dL (32-36); Mean Corpuscular Volume 92.2 fL (80-100); Mean Platelet Volume 10.2 fL (7.4-10.4); Monocytes # (auto) 0.48 K/uL (0.11-0.59); Monocytes % (auto) 9.3 %; Neutrophils # (auto) 3.77 K/uL (1.4-6.5); Neutrophils % (auto) 73.2 %; Platelet Count 90 K/uL (130-400); Platelet Estimate Decreased (Normal); RDW Coefficient of Variation 18.6 % (11.5-14.5); RDW Standard Deviation 62.3 fL (36.4-46.3); Red Blood Count 2.83 M/uL (4.2-5.4); White Blood Count 5.15 K/uL (4.8-10.8)
[2021-09-28 07:17] LABS: BUN Creatinine Ratio 7.3 (10-20); C Reactive Protein 8.91 mg/dl (0-0.5); Calcium 7.7 mg/dl (8.5-10.1); Creatinine Clr Calc Pharmacy 10.5 ml/min; Est GFR (African American) 8.5 ml/min; Est GFR (Non-African American) 7.3 ml/min; Potassium 4.1 mmol/L (3.5-5.1)
--- NOTE | 2021-09-28 07:53 | Hospitalist Progress Note ---
Date of Service September 28, 2021 Assessment & Plan (1) Encephalitis: Plan: 76-year-old female with past medical history HTN, GERD, History of DVT, metastatic melanoma (on Keytruda and oral steroid taper), who presented with fever and altered mental status and admitted for metabolic encephalitis and acute kidney injury in the setting of recent discharge for presumed sepsis for fungal UTI, and subacute CVA on 09/05. Thrombocytopenia, new -Drop in platelets from 180 down to 90 today, repeat CBC ordered to reevaluate -Normal fibrinogen, increased fibrinogen degradation products, D-dimer at over 6000 -INR at 2.2, peripheral smear pending -CTA ordered to evaluate for pulmonary embolism in setting of labs above and increased oxygen requirement -CT of chest negative for pulmonary embolism -Ordered bilateral lower extremity ultrasounds which are pending -Concern for DIC in setting of acute illness with history of malignant melanoma versus HIT with heparin for DVT prophylaxis Fever, improved -Patient w/ temp 38.6 on 09/27, also hypoxia to 80s O2%. Initiated sepsis workup for possible pneumonia concern -CRP 7.84, Procalcitonin 1.39, CXR with small b/l pleural effusions and no focal consolidations -BCx and MRSA swab pending -Initiated empiric Zosyn, will adjust abx pending MRSA swab and clinical course -Trend CBC, CRP, procalcitonin SHAMEKA Secondary to ATN -Baseline creatinine 0.9-1.1. Cr at 4.33 currently following dialysis -Urine culture + for VRE faecium, Cherry but asymptomatic. Completed Daptomycin x5 days. -ATN possibly secondary to VRE UTI/AIN from immunotherapy -Nephrology consulted. -nivolumab/ipilimumab prior to admission. Both agents can be associated with SHAMEKA/AIN -Pt started on dialysis. -Epogen 1000units x1 during dialysis. -Slow taper of steroid reviewed with oncology, who initially recommended IV methylprednisone. -Tums TID, metoprolol 50mg BID, amlodipine 10mg. -Continue to trend AM BMP, monitor I&O's. Anemia -Hgb 6.4 on 09/21, transfused pRBC x2 bags. Post transfusion hgb 9.5, now at 8.4 -Hgb 9.5 on 09/26, stable -Trend CBC Altered mental status/Delirium -Pt continues to wax and wane with respect to alertness and orientation -Other than creatinine, no obvious acute metabolic source. Suspect slow resolving subacute delirium secondary to encephalitis, ATN-SHAMEKA. -Continue to monitor Encephalitis- resolved -AMS and fever to 38.1 in ED. -Patient received 1 dose of vancomycin in the ER. -Initially thought to be due to Keytruda b/c of side effect profile. -Dr. Herrera of oncology consulted: -Doubtful Keytruda was responsible for encephalitis, as she received her last dose long before for her symptoms started. -Suspects hypophysitis. -AM Cortisol low at 2.29, FSH and LH low at 1.72 & <0.20, respectively, GH and ACTH low. TSH 1.72 Concern of Hypophysitis -Reached out to endocrinology -Wean steroids- currently 20mg hydrocortisone in the AM, 10mg hydrocortisone in the PM. -Continue to wean Methylprednisolone. Currently 60 mg IV and will keep at this dose for today given concern for infection VRE UTI -Urine culture as above (VRE, cherry). -Completed 5 days of Daptomycin. -Monitor I&O's, vitals. HTN -Continue amlodipine and metoprolol as above. Hx of DVT -Resume heparin 5000 units q12h for DVT prophylaxis, if further testing shows HIT, D/C heparin -Holding home Eliquis. Metastatic melanoma -Patient follows with hematology. On Keytruda and hydrocortisone at home. Code: Full code Dispo: Med-Surg with telemetry FEN/GI: Low potassium diet DVT Prophylaxis: Resume heparin (2) SHAMEKA (acute kidney injury): (3) Sepsis: (4) Anemia: (5) Leukocytosis: (6) Adrenal suppression: (7) Cerebrovascular accident (CVA): (8) Fever of unknown origin: (9) Chronic kidney disease, stage III (moderate): (10) History of DVT (deep vein thrombosis): Admission and Anticipated Discharge Date Admission Date: September 09, 2021 Supervising Physician Co-Signing Physician Notes I personally examined the patient and verified all yousif points of history and exam, discussed case, and agree with decision making with Dr Coates Awake and back to her recent baseline mentation. Denies any pain denies any shortness of breath, notes that she is doing okay. Obviously with delirium her HPI and review of systems are of questionable veracity but are negative Vitals noted, in general she is awake disoriented but pleasant and conversive no distress. HEENT normocephalic atraumatic mucous membranes moist. Breathing unlabored no accessory muscle use good effort. Skin shows no rashes no pallor or icterus. Neuro without focal deficits, cranial nerves II through XII are grossly intact gross motor and sensory appear to be intact. Skin shows sca ttered bruising mostly in areas consistent with phlebotomy and IV sites, no petechiae no lesions at the tips of fingers toes or nose, no rash on her trunk, no necrotic skin lesions. Feverconcerning for a new septic process given her immunocompromise and prolonged hospitalization, as well as procedures. That said it could be as simple as atelectasis or another nonspecific fever. Given concern on infection, blood cultures, urine culture are pending. On empiric Zosyn. With thrombocytopenia todayconcern about a consumptive processDIC panel sent and while fibrinogen is normal which is reassuring, the rest of her panel does seem consistent with a degree of DIC. The concerning factor is that the source is not clearno evidence of pneumonia, blood cultures and urine culture negative to date, no obvious skin infections, nothing subtle on chest CT, no evidence of enteritis. Low threshold to CT abdomen pelvis, continue Zosyn and continue to trend inflammatory markers. Fortunately at the bedside she actually looks better today than yesterday and spite of her platelets dropping trend CBC, no clear role for giving FFP unless her fibrinogen drops further (should trend this as well) and given that she is not showing bleeding/skin necrosis etc., no clear reason for other therapy other than source controlwhich would be the role for the Zosyn. She is also intermediate on a 4T's score, but given that this clinically appears more consistent with DIC than HIT, unless her platelets continue to drop precipitously and the rest of her picture does not fit with HIT, would hold off on HIT specific therapy arf - likely ATN from severe prerenal from poor PO intake vs AIN possibly Keytruda mediated continue supportive care, expectant management, TDC placed, ongoing hemodialysis delirium - multifactorial. continue reorientation and supportive care as best as possible septic picture - no clear source, probably from hormonal insufficiencies from hypophysitis- continue corticosteroids - wean slowly down to hydrocortisone 20am/10afternoon (down to 60mg IV methylpredand given the above concerning clinical picture, will refrain from reducing steroids further until her sepsis/possible DIC picture has been clearly stabilized) free T4 ok, likely will need repeated in a month or so as well possible VRE UTI - treated otherwise as above Subjective Patient seen at bedside this morning. No acute events reported overnight. Patient does seem to be improved from yesterday based off of previous descripti on, however, patient does seem to be pleasantly confused. Does not seem to be oriented to place or time. Denies shortness of breath or chest pain even though she is on 2 L nasal cannula which is newly added yesterday. Denies calf pain. No other complaints at this time. Review of Systems Review of Systems: All systems reviewed & are unremarkable except as noted in HPI & below Physical Exam Constitutional: WD/WN, vitals as above Eyes: + anicteric sclerae Neck: normal visual inspection Respiratory: normal respiratory effort Auscultation: + bronchial breath sounds Cardiovascular: Rate/Rhythm: regular rate and regular rhythm Extremities: + edema Gastrointestinal (Abdomen): Inspection/Auscultation: abdomen normal to inspection and normal bowel sounds Musculoskeletal: Head/Neck/Chest: normocephalic and head atraumatic Skin: no rashes, warm and dry Neurologic: moves all extremities Psychiatric: Orientation: alert, oriented to place and cooperative; + not oriented to person and + not oriented to time Eye Contact: good eye contact Results & Data Results & Data ([facility]) Vital Signs (Past 12 Hours) Vital Signs Temp Pulse Pulse Resp BP BP Pulse Ox 09/28/21 07:00 61 09/28/21 02:52 36.8 C 58 L 18 133/77 100 09/27/21 23:09 36.0 C L 58 L 18 131/64 100 09/27/21 23:00 55 L (1) Anemia Anemia type: unspecified type Qualified Code(s): D64.9 - Anemia, unspecified (2) Leukocytosis Leukocytosis type: unspecified Qualified Code(s): D72.829 - Elevated white blood cell count, unspecified (3) Sepsis Sepsis acute organ dysfunction status: unspecified Sepsis type: sepsis due to unspecified organism Qualified Code(s): A41.9 - Sepsis, unspecified organism
[2021-09-28] MEDS: CALCIUM CARBONATE 500 MG CHEWABLE TAB PO SCH ×3 (07:59→17:13)
[2021-09-28] MEDS: methylPREDNISolone 60 MG in SYRINGE 0 ML IV SCH (07:59)
[2021-09-28] MEDS: METOPROLOL TARTRATE 50 MG TAB PO SCH ×2 (08:00→20:37)
[2021-09-28] MEDS: ASPIRIN 81 MG ECTAB PO SCH (08:00)
[2021-09-28] MEDS: MONTELUKAST SODIUM 10 MG TABLET PO SCH (08:00)
[2021-09-28] MEDS: NEPHROCAPS PO SCH (08:00)
[2021-09-28] MEDS: amLODIPine BESYLATE 5 MG TAB PO SCH (08:00)
[2021-09-28] MEDS: PANTOprazole 40 MG TAB PO SCH ×2 (08:00→20:37)
[2021-09-28] MEDS: HEPARIN SOD 5,000 UNIT/0.5 ML VIAL SQ SCH ×2 (08:02→20:34)
[2021-09-28] MEDS: PIPERACILLIN/TAZOBACTAM 3.375 GM in DEXTROSE 5% 100 ML IV SCH ×2 (08:12→20:37)
[2021-09-28 09:55] LABS: Fibrinogen 293 mg/dl (184-400); INR 2.2 (0.9-1.1); Prothrombin Time 22.9 Seconds (9.0-12.0)
[2021-09-28 10:00] LABS: D Dimer 6340 ug/L FEU (0-500)
--- NOTE | 2021-09-28 11:21 | Nephrology Progress Note ---
Date of Service September 28, 2021 Assessment & Plan (1) SHAMEKA (acute kidney injury): Plan: SHAMEKA related to ATN vs immune checkpoint inhibitor (nivolumab/ipilimumab) associated AIN. Next HD planned for tomorrow. Started HD 09/19/21 via R femoral catheter. [facility] TDC placed by Dr. Michelle 09/26/21. HD completed yesterday with adequate clearance and UF (2L). Tolerating HD well. Volume status acceptable. Electrolytes controlled. No signs of renal recovery. Remains oligoanuric. Medications appropriately dosed for kidney dysfunction. Remains on slow methylprednisolone taper. (2) Anemia: Plan: Epogen 06434 units x 1 dose provided with HD 09/26. Tsat 65 on 09/16. (3) Hypertension: Plan: Euvolemic. BP acceptable. Remains on amlodipine and metoprolol. Metoprolol increased 08/26. (4) Thrombocytopenia: Plan: H/H and plts dropped overnight. Peripheral smear pending. Laboratory findings concerning for possible DIC. Closely being monitored. Afebrile since yesterday AM. Abx therapy restarted with Zosyn dosed for kidney dysfunction. Plan of care reviewed with Dr. Coates this AM. (5) Chronic kidney disease, stage III (moderate): Plan: Baseline creatinine 1.1 to 1.3 mg/dL. Admission and Anticipated Discharge Date Admission Date: September 09, 2021 Subjective No acute events overnight. Kezia remains pleasant but confused. She denies pain. Afebrile since Tmax 38.6 yesterday AM. Not oriented to place or time. Incontinent of loose stool per RN. No melena or hematochezia. Denies pain. Remains oligoanuric with Rollins in place. Review of Systems Constitutional: no weight loss, no weight gain and no problem reported Eyes: no problem reported Ear, Nose, Mouth, Throat: no problem reported Respiratory: no problem reported Cardiovascular: no problem reported Gastrointestinal: no problem reported Musculoskeletal: no problem reported Integumentary: no problem reported Neurologic: no problem reported Psychiatric: no problem reported Endocrine: no problem reported Hematologic / Lymphatic: no problem reported Physical Exam Constitutional: no acute distress, not malnourished and not edematous Eyes: + anicteric sclerae; no corneal abnormality ENMT: Ears: + hearing impairment Mouth: no oral mucosal abnormality and oral mucous membranes not dry Neck: normal visual inspection and trachea midline Respiratory: normal respiratory effort Auscultation: lungs clear to auscultation bilaterally and + diminished lung sounds (at bases) Cardiovascular: Rate/Rhythm: regular rate Heart Sounds: normal S1, normal S2 and + murmur Extremities: + edema (non pitting and pedal edema in both legs, dependent edema) L IJ TDC with pressure dressing intact Musculoskeletal: Extremities: no cyanosis and no clubbing Skin: + turgor decreased; no lesions Neurologic: Motor/Sensory: no tremor and no asterixis Psychiatric: Orientation: alert and cooperative; + not oriented to place and + not oriented to time Genitourinary: Rollins with small amount of concentrated urine in bag Results & Data ([facility]) Vital Signs (Past 12 Hours) Vital Signs Temp Pulse Pulse Resp BP Pulse Ox 09/28/21 08:14 36.3 C L 65 20 166/74 H 100 09/28/21 07:00 61 09/28/21 02:52 36.8 C 58 L 18 133/77 100 Laboratory Results Laboratory Results - last 24 hr 09/27/21 09/28/21 09/28/21 11:34 06:02 06:02 WBC 5.15 RBC 2.83 L Hgb 8.3 L Hct 26.1 L MCV 92.2 MCH 29.3 MCHC 31.8 L RDW Std Deviation 62.3 H RDW Coeff of Dominic 18.6 H Plt Count 90 L D MPV 10.2 Immature Gran % (Auto) 0.2 Neut % (Auto) 73.2 Lymph % (Auto) 15.7 Bartholomew % (Auto) 9.3 Eos % (Auto) 1.4 Baso % (Auto) 0.2 Neut # (Auto) 3.77 Lymph # (Auto) 0.81 L Bartholomew # (Auto) 0.48 Eos # (Auto) 0.07 Baso # (Auto) 0.01 Immature Gran # (Auto) 0.01 Platelet Estimate Decreased L Peripher Smr Path Cons Pending PT INR Fibrinogen Fibrin Degrad Products D-Dimer Sodium 135 L Potassium 4.1 D Chloride 97 L Carbon Dioxide 29 Anion Gap 9 BUN 38 H Creatinine 5.24 H* D Est Cr Clr Drug Dosing 10.5 Est GFR ( Amer) 8.5 Est GFR (Non-Af Amer) 7.3 BUN/Creatinine Ratio 7.3 L Glucose 83 Calcium 7.7 L C-Reactive Protein 8.91 H Procalcitonin Nasal Screen MRSA (PCR) Negative 09/28/21 09/28/21 09/28/21 06:02 09:07 09:07 WBC RBC Hgb Hct MCV MCH MCHC RDW Std Deviation RDW Coeff of Dominic Plt Count MPV Immature Gran % (Auto) Neut % (Auto) Lymph % (Auto) Bartholomew % (Auto) Eos % (Auto) Baso % (Auto) Neut # (Auto) Lymph # (Auto) Bartholomew # (Auto) Eos # (Auto) Baso # (Auto) Immature Gran # (Auto) Platelet Estimate Peripher Smr Path Cons Cancelled PT 22.9 H INR 2.2 H Fibrinogen 293 Fibrin Degrad Products D-Dimer 6340 H* Sodium Potassium Chloride Carbon Dioxide Anion Gap BUN Creatinine Est Cr Clr Drug Dosing Est GFR ( Amer) Est GFR (Non-Af Amer) BUN/Creatinine Ratio Glucose Calcium C-Reactive Protein Procalcitonin 1.46 H Nasal Screen MRSA (PCR) 09/28/21 09:07 WBC RBC Hgb Hct MCV MCH MCHC RDW Std Deviation RDW Coeff of Dominic Plt Count MPV Immature Gran % (Auto) Neut % (Auto) Lymph % (Auto) Bartholomew % (Auto) Eos % (Auto) Baso % (Auto) Neut # (Auto) Lymph # (Auto) Bartholomew # (Auto) Eos # (Auto) Baso # (Auto) Immature Gran # (Auto) Platelet Estimate Peripher Smr Path Cons PT INR Fibrinogen Fibrin Degrad Products 10-40 H D-Dimer Sodium Potassium Chloride Carbon Dioxide Anion Gap BUN Creatinine Est Cr Clr Drug Dosing Est GFR ( Amer) Est GFR (Non-Af Amer) BUN/Creatinine Ratio Glucose Calcium C-Reactive Protein Procalcitonin Nasal Screen MRSA (PCR) PG Care Time/CCT Total # of Minutes Spent Total Time Spent with Patient: Total time spent is greater than 50% in coordination of care (as documented) at patient's floor/unit and/or counseling patient: Coding Level of Care Code 11165 Subseq Hosp Care Lvl 3 Diagnoses SHAMEKA (acute kidney injury) N17.9 Anemia D64.9 Anemia type: unspecified type Hypertension I10 Thrombocytopenia D69.6 Chronic kidney disease, stage III (moderate) N18.30 (1) Anemia Anemia type: unspecified type Qualified Code(s): D64.9 - Anemia, unspecified
[2021-09-28] MEDS ORDERED: OPTIRAY 320 125ml IV ONE (11:32)
--- NOTE | 2021-09-28 12:02 | CT Scan Report ---
CT angio chest PE protocol CLINICAL HISTORY: Hypoxia COMPARISON STUDY: 2 view chest from 09/27/2021 CT DOSE: TECHNIQUE: CT Angio of the chest was performed.followed by image post processing with coronal, and s agittal MIP reformats. Contrast Volume: Optiray 320, 120 ml FINDINGS: Vasculature: There is homogeneous perfusion of the pulmonary vasculature bilaterally. No intraluminal filling defects or evidence for pulmonary embolus is seen. Airway: The airway is clear. No endobronchial lesion is identified. Lungs and pleural: There are moderate size bilateral pleural effusions with compressive atelectasis/c ollapse of both lower lobes. The lungs are otherwise clear of acute alveolar opacities, air bronchogr ams or pulmonary nodules. Mediastinum: There is no evidence for pathologic adenopathy. The heart size is within normal limits. There is coronary artery calcification present. The thoracic aorta is within normal limits. There is no evidence for pericardial effusion. Upper abdomen:There is a large hiatal hernia. Osseous structures: There is no acute osseous pathology. Impression: 1. No CTA evidence for pulmonary embolus. 2. Moderate sized bilateral pleural effusions with compressive atelectasis/collapse of both lower lob es. 3. No confluent alveolar opacities or air bronchograms. 4. Large hiatal hernia. ACT 112: Negative or not required by law. Electronically signed by: Isauro Rodriguez M.D. 09/28/2021 11:59 AM
[2021-09-28 12:08] LABS: Albumin Level 2.5 gm/dl (3.4-5.0); Bilirubin Direct 0.1 mg/dl (0-0.2); Bilirubin,Total 0.7 mg/dl (0.2-1.0); Total Protein 5.2 gm/dl (6.0-8.3)
[2021-09-28 15:08] LABS: Hematocrit (blood only) 26.9 % (37-47); Hemoglobin 8.4 g/dL (12.0-16.0); Mean Corpuscular Hemoglobin 28.5 pg (25-34); Mean Corpuscular Hgb Conc 31.2 g/dL (32-36); Mean Corpuscular Volume 91.2 fL (80-100); RDW Coefficient of Variation 18.4 % (11.5-14.5); RDW Standard Deviation 60.3 fL (36.4-46.3); Red Blood Count 2.95 M/uL (4.2-5.4); White Blood Count 6.86 K/uL (4.8-10.8)
--- NOTE | 2021-09-28 15:18 | Billing Data ---
Date of Service September 28, 2021 Coding Level of Care Code 70843 Subseq Hosp Care Lvl 3
--- NOTE | 2021-09-28 15:20 | Billing Data ---
Date of Service September 28, 2021 Coding Level of Care Code 82299 Subseq Hosp Care Lvl 3
[2021-09-28 15:34] LABS: Mean Platelet Volume 10.4 fL (7.4-10.4); Platelet Count 91 K/uL (130-400)
[2021-09-28 15:36] LABS: Basophils # (auto) 0.01 K/uL (0-0.2); Basophils % (auto) 0.1 %; Immature Granulocytes # (auto) 0.04 K/uL (0.00-0.02); Immature Granulocytes % (auto) 0.6 %; Lymphocytes # (auto) 0.58 K/uL (1.2-3.4); Lymphocytes % (auto) 8.5 %; Monocytes # (auto) 0.22 K/uL (0.11-0.59); Monocytes % (auto) 3.2 %; Neutrophils # (auto) 6.01 K/uL (1.4-6.5); Neutrophils % (auto) 87.6 %
[2021-09-28 17:20] LABS: Fibrinogen 278 mg/dl (184-400)
[2021-09-28] MEDS ORDERED: levoFLOXacin/D5W 750 MG/150 ML BAG IV ONE (17:30)
--- NOTE | 2021-09-28 20:53 | CT Scan Report ---
CT abd pelvis oral con only CLINICAL HISTORY: possible DIC w/o known source COMPARISON STUDY: 08/25/2021 CT DOSE: 1254.31 mGy.cm TECHNIQUE: Standard CT of the Abdomen and Pelvis was performed without IV contrast. The patient did not receive oral contrast. A dose lowering technique was utilized adhering to the principles of HARPREET Galdamez. FINDINGS: Lung base: There is evidence for moderate size bilateral pleural effusions with compressive atelectas is/collapse involving both lower lobes. Abdominal cavity: There is no evidence for abdominal mass, adenopathy or ascites. Liver: The liver is homogeneous in attenuation on these limited noncontrast images.. Spleen: The spleen is homogeneous in attenuation on these limited noncontrast images. Pancreas: The pancreas is homogeneous in attenuation on these limited noncontrast images. Gall Bladder: The gallbladder is contracted. Adrenal glands: The adrenal glands are normal in size and attenuation on these limited noncontrast im ages. Kidneys: The kidneys are homogeneous in attenuation on these limited noncontrast images. There is no evidence for gross renal mass, calculus or hydronephrosis bilaterally. Bowel: There is a large hiatal hernia. Oral contrast is present within the hernia, throughout the sma ll bowel and into the colon. The bowel loops are normally placed within the abdomen and pelvis withou t evidence for dilatation or obstruction. There is no evidence for mass lesion. There is mild diverti culosis without evidence for diverticulitis. There are no inflammatory changes present. There is no e vidence for free air. There is no evidence for a dilated appendix. Bladder: Rollins catheter is present within the bladder. : There is no evidence for pelvic mass or adenopathy. Vasculature: There is no evidence for focal aneurysmal dilatation of the abdominal aorta. Osseous structures: There is no acute osseous pathology. Extensive degenerative changes are seen with in the lumbar spine with evidence for lumbar canal stenosis. IMPRESSION: 1. Moderate sized bilateral pleural effusions with compressive atelectasis/collapse of both lung base s. 2. Large hiatal hernia. 3. Diverticulosis without evidence for diverticulitis. 4. Extensive degenerative changes of the lumbar spine with evidence for lumbar canal stenosis. 5. No other evidence for acute intra-abdominal or pelvic abnormality. Chronic changes are noted. ACT 112: Negative or not required by law. Electronically signed by: Isauro Rodriguez M.D. 09/28/2021 8:51 PM
[2021-09-28] MEDS: ALUMINUM/MAGNESIUM SUSP 30 ML UDC PO PRN (23:30)
[2021-09-29] MEDS: ACETAMINOPHEN 325 MG TAB PO PRN ×2 (03:41→13:40)
[2021-09-29 07:11] LABS: INR 1.7 (0.9-1.1); Partial Thromboplastin Ratio 1.3; Partial Thromboplastin Time 36.4 Seconds (21.0-31.0); Prothrombin Time 17.6 Seconds (9.0-12.0)
[2021-09-29 07:17] LABS: Hematocrit (blood only) 24.7 % (37-47); Mean Corpuscular Hemoglobin 29.4 pg (25-34); Mean Corpuscular Hgb Conc 32.4 g/dL (32-36); Mean Corpuscular Volume 90.8 fL (80-100); RDW Coefficient of Variation 18.6 % (11.5-14.5); RDW Standard Deviation 60.9 fL (36.4-46.3); Red Blood Count 2.72 M/uL (4.2-5.4); White Blood Count 8.74 K/uL (4.8-10.8)
[2021-09-29] MEDS: PIPERACILLIN/TAZOBACTAM 3.375 GM in DEXTROSE 5% 100 ML IV SCH ×2 (07:36→20:21)
[2021-09-29] MEDS: CALCIUM CARBONATE 500 MG CHEWABLE TAB PO SCH ×3 (07:36→16:51)
[2021-09-29 07:38] LABS: Albumin Level 2.5 gm/dl (3.4-5.0); BUN Creatinine Ratio 6.8 (10-20); C Reactive Protein 5.57 mg/dl (0-0.5); Calcium 7.2 mg/dl (8.5-10.1); Creatinine Clr Calc Pharmacy 8.9 ml/min; Est GFR (African American) 6.8 ml/min; Est GFR (Non-African American) 5.9 ml/min; Potassium 3.5 mmol/L (3.5-5.1)
[2021-09-29 07:41] LABS: Mean Platelet Volume 9.9 fL (7.4-10.4); Platelet Count 96 K/uL (130-400)
--- NOTE | 2021-09-29 07:45 | Hospitalist Progress Note ---
Date of Service September 29, 2021 Assessment & Plan (1) Encephalitis: Plan: 76-year-old female with past medical history HTN, GERD, History of DVT, metastatic melanoma (on Keytruda and oral steroid taper), who presented with fever and altered mental status and admitted for metabolic encephalitis and acute kidney injury in the setting of recent discharge for presumed sepsis for fungal UTI, and subacute CVA on 09/05. Goals of care -Given pt's severe illness with multiple acute problems, multisystem organ failure, altered mentation and poor prognosis, I will have goals of care discussion with her son who holds POA as she lacks decisional capacity at this time -Will discuss hospital course, code status and goals of care with POA and adjust treatment plan accordingly -Of note, nephrology did suggest potential comfort measures if pt's dialysis does not improve kidney function. I will inform POA of this during goals of care conversation Deep venous thrombosis -Known history of previous DVTs- is normally on Eliquis and held on admission -09/29 doppler- DVT in R femoral vein -Doppler also demonstrating L groin-distal left thigh fluid collection- likely resolving intramuscular hematoma. Recommend f/u imaging in 3 months -Hematology consulted -Currently on heparin 5000u SQ BID for prophylaxis. Will adjust pending recommendations from hematology- consider therapeutic Lovenox given concern for HIT Thrombocytopenia -Plts 180 -> 90 on 09/28, workup initiated as below -Normal fibrinogens- 290 -> 270 -> 240 -Increased fibrinogen degradation products -D-dimer 6000+, subsequent CTA chest negative for PE -Dopplers as above -INR 2.2 -Peripheral smear- non-specific normocytic anemia, thrombocytopenia without morphology abnormality -Plts uptrending to 96 today -Consumptive coagulopathy in setting of acute illness. May be DIC, HIT (intermediate 4T's score) -Hematology consulted Fever of unknown origin -Patient w/ temp 38.6 on 09/27, also hypoxia to 80s O2%. Initiated sepsis workup for possible pneumonia concern -WBC wnl, CRP 7.84, Procalcitonin 1.39, CXR with small b/l pleural effusions and no focal consolidations -BCx preliminary negative, MRSA nares negative -Initiated Zosyn, Levaquin added on 09/28 for double pseudomonal coverage -CTAP 09/29- b/l pleural effusions with atelectasis -CRP 8.9 -> 5.6 today. Currently afebrile, no fevers since -Continue Zosyn and Levaquin given unclear etiology of febrile illness -Trend CBC, CRP, procalcitonin SHAMEKA secondary to ATN -Baseline creatinine 0.9-1.1. Cr at 6.33 currently following dialysis -Urine culture + for VRE faecium, Cherry but asymptomatic. Completed Daptomycin x5 days. -ATN possibly secondary to VRE UTI/AIN from immunotherapy -Nephrology consulted. -nivolumab/ipilimumab prior to admission. Both agents can be associated with SHAMEKA/AIN -Pt currently on dialysis, nephrology following -Epogen 1000units x1 during dialysis. -Slow taper of steroid reviewed with oncology, who initially recommended IV methylprednisone. -Tums TID, metoprolol 50mg BID, amlodipine 10mg. -Continue to trend AM BMP, monitor I&O's. Anemia -Hgb 6.4 on 09/21, transfused pRBC x2 bags. Post transfusion hgb 9.5, now at 8.0 on 09/29 -Trend CBC Altered mental status/Delirium -Pt continues to wax and wane with respect to alertness and orientation -Other than creatinine, no obvious acute metabolic source. Suspect subacute delirium secondary to encephalitis, ATN-SHAMEKA. -Continue to monitor Encephalitis -AMS and fever to 38.1 in ED. -Patient received 1 dose of vancomycin in the ER. -Initially thought to be due to Keytruda b/c of side effect profile. -Oncology consulted: -Doubtful Keytruda was responsible for encephalitis, as she received her last dose long before for her symptoms started. -Suspects hypophysitis. -AM Cortisol low at 2.29, FSH and LH low at 1.72 & <0.20, respectively, GH and ACTH low. TSH 1.72 Hypophysitis -Reached out to endocrinology -Wean steroids- currently 20mg hydrocortisone in the AM, 10mg hydrocortisone in the PM. -Continue to wean Methylprednisolone. Currently 60 mg IV and will keep at this dose for time being given unclear illness and uncertain goals of care. VRE UTI -Urine culture as above (VRE, cherry). -Completed 5 days of Daptomycin. -Monitor I&O's HTN -Continue amlodipine and metoprolol as above. Metastatic melanoma -Patient follows with hematology. On Keytruda and hydrocortisone at home. Code: Full code Dispo: Med-Surg with telemetry FEN/GI: Low potassium diet DVT Prophylaxis: Heparin 5000u BID (2) SHAMEKA (acute kidney injury): (3) Sepsis: (4) Anemia: (5) Leukocytosis: (6) Adrenal suppression: (7) Cerebrovascular accident (CVA): (8) Fever of unknown origin: (9) Chronic kidney disease, stage III (moderate): (10) History of DVT (deep vein thrombosis): Admission and Anticipated Discharge Date Admission Date: September 09, 2021 Supervising Physician Co-Signing Physician Notes Attending attestation Pt seen and examined in concert with Dr. Roberts. In agreement with the documented findings as noted in the resident documentation with any exceptions or additions as noted here. Patient reports that today is a "bad day" with increased fatigue but without specific complaint. AAOx1 during conversation today. Neighbor, Gilberto @ bedside. V/S as noted. On examination, S1/S2 nl RRR no MCG. CTAB. Abd NT/ND BS+ve. Scattered ecchymosis without significant bruising appreciated. Fever in the setting of new DVT, thrombocytopenia concerning for DIC - continue levofloxacin and Zosyn. Continue steroids at present dose. Monitor PT/INR, fibrinogen, CBC. Consult hematology for AC options. Goals of care conversation and evidence of POA conversation with SON for direction of care upcoming. Acute renal failure, likely 2/2 ATN vs Keytruda induced AIN - nephrology consultation - on HD, continue monitoring labs Else see resident documentation as noted. Subjective No acute events overnight. On evaluation, pt reports she feels ok. States she'd like to take things one day at a time and do everything she can to get better. When I informed her she had a DVT in her leg, she questioned multiple times if there would be surgical intervention even after I explained the treatment plan. Pt was not able to meaningfully engage in interview due to her mental status. Review of Systems Constitutional: as per Subjective / HPI Physical Exam Constitutional: WD/WN, vitals as above Eyes: + anicteric sclerae Neck: normal visual inspection Respiratory: normal respiratory effort Auscultation: + bronchial breath sounds Cardiovascular: Rate/Rhythm: regular rate and regular rhythm Extremities: + edema Gastrointestinal (Abdomen): Inspection/Auscultation: abdomen normal to inspection and normal bowel sounds Musculoskeletal: Head/Neck/Chest: normocephalic and head atraumatic Skin: no rashes, warm and dry ecchymosis noted over L side of distal neck/chest Neurologic: moves all extremities Psychiatric: Orientation: alert, oriented to person and cooperative; + not oriented to place and + not oriented to time Eye Contact: good eye contact Results & Data Results & Data ([facility]) Vital Signs (Past 12 Hours) Vital Signs Temp Pulse Pulse Pulse Resp BP Pulse Ox 09/29/21 07:00 36.4 C L 70 16 107/58 L 100 09/29/21 03:45 36.7 C 68 16 133/70 98 09/28/21 23:00 36.8 C 67 70 22 167/97 H 100 Resident Activity Tracking Resident Involvement: Resident Care Provided Care Provided: Adult Hospital Medicine (1) Anemia Anemia type: unspecified type Qualified Code(s): D64.9 - Anemia, unspecified (2) Leukocytosis Leukocytosis type: unspecified Qualified Code(s): D72.829 - Elevated white blood cell count, unspecified (3) Sepsis Sepsis acute organ dysfunction status: unspecified Sepsis type: sepsis due to unspecified organism Qualified Code(s): A41.9 - Sepsis, unspecified organism
--- NOTE | 2021-09-29 09:53 | Nephrology Progress Note ---
Date of Service September 29, 2021 Assessment & Plan (1) SHAMEKA (acute kidney injury): Plan: SHAMEKA related to ATN vs immune checkpoint inhibitor (nivolumab/ipilimumab) associated AIN. Remains oliguric. Orders for HD today entered into the EHR and reviewed with dialysis nurse. UF goal ~2 L. Started HD 09/19/21 via R femoral catheter. [facility]J TDC placed by Dr. Michelle 09/26/21. Tolerating HD well. BP acceptable. No signs of renal recovery. Medications appropriately dosed for kidney dysfunction. Remains on slow methylprednisolone taper. Taper per primary team. Rollins may be removed per nursing protocol. (2) Anemia: Plan: Epogen 97250 units x 1 dose provided with HD 09/26. Tsat 65 on 09/16. (3) Hypertension: Plan: BP acceptable. Volume status controlled. Tolerating amlodipine and metoprolol well. (4) Thrombocytopenia: Plan: Stable plt count and H/H. Labs concerning for possible DIC. No obvious infectious source. (5) Chronic kidney disease, stage III (moderate): Plan: Baseline creatinine 1.1 to 1.3 mg/dL. Admission and Anticipated Discharge Date Admission Date: September 09, 2021 Subjective No acute events overnight. Afebrile. Denies pain. Denies shortness of breath. Mild discomfort over dialysis catheter site. No additional bleeding reported on dressing. Review of Systems Review of Systems: All systems reviewed & are unremarkable except as noted in HPI & below Physical Exam Constitutional: + frail appearing; no acute distress Eyes: + anicteric sclerae; no corneal abnormality ENMT: Ears: + hearing impairment Mouth: no oral mucosal abnormality and oral mucous membranes not dry Neck: normal visual inspection and trachea midline Respiratory: normal respiratory effort Auscultation: lungs clear to ausc ultation bilaterally and + diminished lung sounds (at bases) Cardiovascular: Rate/Rhythm: regular rate Heart Sounds: normal S1, normal S2 and + murmur Extremities: + edema (non pitting and pedal edema in both legs, dependent edema) Musculoskeletal: Extremities: no cyanosis and no clubbing Skin: + turgor decreased; no lesions Neurologic: Motor/Sensory: no tremor and no asterixis Psychiatric: Orientation: alert and cooperative; + not oriented to place and + not oriented to time Results & Data ([facility]) Vital Signs (Past 12 Hours) Vital Signs Temp Pulse Pulse Pulse Resp BP BP 09/29/21 09:45 70 122/62 09/29/21 09:23 36.6 C 68 70 09/29/21 07:00 36.4 C L 72 70 16 107/58 L 09/29/21 03:45 36.7 C 68 16 133/70 09/28/21 23:00 36.8 C 67 70 22 167/97 H Pulse Ox 09/29/21 09:45 09/29/21 09:23 09/29/21 07:00 100 09/29/21 03:45 98 09/28/21 23:00 100 Laboratory Results Laboratory Results - last 24 hr 09/28/21 09/28/21 09/28/21 06:02 09:07 09:07 WBC RBC Hgb Hct MCV MCH MCHC RDW Std Deviation RDW Coeff of Dominic Plt Count MPV Immature Gran % (Auto) Neut % (Auto) Lymph % (Auto) [place] % (Auto) Eos % (Auto) Baso % (Auto) Neut # (Auto) Lymph # (Auto) [place] # (Auto) Eos # (Auto) Baso # (Auto) Immature Gran # (Auto) PT 22.9 H INR 2.2 H APTT PTT Ratio Fibrinogen 293 Fibrin Degrad Products 10-40 H D-Dimer 6340 H* Sodium Potassium Chloride Carbon Dioxide Anion Gap BUN Creatinine Est Cr Clr Drug Dosing Est GFR ( Amer) Est GFR (Non-Af Amer) BUN/Creatinine Ratio Glucose Calcium Phosphorus Total Bilirubin 0.7 Direct Bilirubin 0.1 AST 21 ALT 6 L Alkaline Phosphatase 66 C-Reactive Protein Total Protein 5.2 L Albumin 2.5 L 09/28/21 09/28/21 09/29/21 14:58 16:43 06:53 WBC 6.86 RBC 2.95 L Hgb 8.4 L Hct 26.9 L MCV 91.2 MCH 28.5 MCHC 31.2 L RDW Std Deviation 60.3 H RDW Coeff of Dominic 18.4 H Plt Count 91 L MPV 10.4 Immature Gran % (Auto) 0.6 Neut % (Auto) 87.6 Lymph % (Auto) 8.5 [place] % (Auto) 3.2 Eos % (Auto) 0.0 Baso % (Auto) 0.1 Neut # (Auto) 6.01 Lymph # (Auto) 0.58 L [place] # (Auto) 0.22 Eos # (Auto) 0.00 Baso # (Auto) 0.01 Immature Gran # (Auto) 0.04 H PT 17.6 H INR 1.7 H APTT 36.4 H PTT Ratio 1.3 Fibrinogen 278 Fibrin Degrad Products D-Dimer Sodium Potassium Chloride Carbon Dioxide Anion Gap BUN Creatinine Est Cr Clr Drug Dosing Est GFR ( Amer) Est GFR (Non-Af Amer) BUN/Creatinine Ratio Glucose Calcium Phosphorus Total Bilirubin Direct Bilirubin AST ALT Alkaline Phosphatase C-Reactive Protein Total Protein Albumin 09/29/21 09/29/21 06:53 06:53 WBC 8.74 RBC 2.72 L Hgb 8.0 L Hct 24.7 L MCV 90.8 MCH 29.4 MCHC 32.4 RDW Std Deviation 60.9 H RDW Coeff of Dominic 18.6 H Plt Count 96 L MPV 9.9 Immature Gran % (Auto) Neut % (Auto) Lymph % (Auto) [place] % (Auto) Eos % (Auto) Baso % (Auto) Neut # (Auto) Lymph # (Auto) [place] # (Auto) Eos # (Auto) Baso # (Auto) Immature Gran # (Auto) PT INR APTT PTT Ratio Fibrinogen Fibrin Degrad Products D-Dimer Sodium 130 L Potassium 3.5 Chloride 95 L Carbon Dioxide 25 Anion Gap 10 BUN 43 H Creatinine 6.31 H* D Est Cr Clr Drug Dosing 8.9 Est GFR ( Amer) 6.8 Est GFR (Non-Af Amer) 5.9 BUN/Creatinine Ratio 6.8 L Glucose 85 Calcium 7.2 L Phosphorus 4.0 Total Bilirubin Direct Bilirubin AST ALT Alkaline Phosphatase C-Reactive Protein 5.57 H Total Protein Albumin 2.5 L PG Care Time/CCT Total # of Minutes Spent Total Time Spent with Patient: Total time spent is greater than 50% in coordination of care (as documented) at patient's floor/unit and/or counseling patient: Coding Level of Care Code 00651 Subseq Hosp Care Lvl 3 Diagnoses SHAMEKA (acute kidney injury) N17.9 Anemia D64.9 Anemia type: unspecified type Hypertension I10 Thrombocytopenia D69.6 Chronic kidney disease, stage III (moderate) N18.30 (1) Anemia Anemia type: unspecified type Qualified Code(s): D64.9 - Anemia, unspecified
--- NOTE | 2021-09-29 10:03 | Ultrasound Report ---
BILATERAL LOWER EXTREMITY VENOUS DOPPLER CLINICAL HISTORY: +d-dimer and fibrinogen products w/ clot history COMPARISON STUDY: Right lower extremity venous Doppler ultrasound February 08, 2019. TECHNIQUE: Sonography of the deep venous system of the bilateral lower extremities was performed. Co mpression and augmentation were evaluated. FINDINGS: Note is made of deep venous thrombus within the right common femoral vein. No thrombus was shown within this vessel on ultrasound of February 08, 2019. No deep venous thrombus is identified wit hin the left lower extremity. There is a large complex elongated fluid collection which extends from the left groin to distal left thigh. This measures approximately 28.2 x 8.7 x 3.8 cm. This is likely intramuscular location. IMPRESSION: 1. Deep venous thrombus within the right common femoral vein. This thrombus is age indeterminate by s onography. 2. No deep venous thrombus within the left lower extremity. 3. Large intramuscular fluid collection which extends from the left groin to the distal left thigh wh ich measures approximately 28.2 x 8.7 x 3.8 cm. Although nonspecific, this favors a resolving intramu scular hematoma. A follow-up ultrasound in 3 months to ensure resolution is recommended. ACT 112: Negative or not required by law. Electronically signed by: Tyler Guerrero M.D. 09/29/2021 10:02 AM
[2021-09-29 10:16] LABS: Fibrinogen 239 mg/dl (184-400)
[2021-09-29] MEDS: methylPREDNISolone 60 MG in SYRINGE 0 ML IV SCH (13:40)
[2021-09-29] MEDS: MONTELUKAST SODIUM 10 MG TABLET PO SCH (13:42)
[2021-09-29] MEDS: METOPROLOL TARTRATE 50 MG TAB PO SCH ×2 (13:42→20:22)
[2021-09-29] MEDS: PANTOprazole 40 MG TAB PO SCH ×2 (13:44→20:22)
[2021-09-29] MEDS: amLODIPine BESYLATE 5 MG TAB PO SCH (13:44)
[2021-09-29] MEDS: ASPIRIN 81 MG ECTAB PO SCH (13:44)
[2021-09-29] MEDS: NEPHROCAPS PO SCH (13:45)
[2021-09-29] MEDS: HEPARIN SOD 5,000 UNIT/0.5 ML VIAL SQ SCH (13:47)
[2021-09-29] MEDS ORDERED: ENALAPRILAT 1.25 MG in DEXTROSE 5% 25 ML IV PRN (16:30)
[2021-09-29 17:12] LABS: Fibrinogen 274 mg/dl (184-400)
--- NOTE | 2021-09-29 20:23 | Oncology Consultation ---
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 The hemoglobin drop as low as 6.7. This is quite concerning for TTP. The plan is to evaluate the peripheral blood smear to ensure there are no schistocytes. If there is significant schistocytes, this lady will require emergent plasmapheresis. In the absence of schistocytes on peripheral blood smear (high- power field), HIT is a possibility because she has dropped platelet by more than 50% in 4 to 5 days. The HIT panel will be required which includes PF4 and serotonin releasing assay. Meanwhile, 1 may avoid heparin products and she will require anticoagulation. The renal failure makes anticoagulation very difficult as 1 may not use argatroban or Arixtra as this does not appear to be HIT. I will follow the patient along with you and gives appropirate recommendations. Please feel free to reach out. History of Present Illness Reason for Consultation: Thrombocytopenia, DVT Attending Physician: Daquan Cervantes MD History of Present Illness Patient was initially referred to the oncology outpatient clinic with history of left thigh mass. The biopsy of this mass is consistent with clear cell sarcoma however, NGS is consistent with malignant melanoma with TMB of 23. Based on these this woman was initiated on pembrolizumab every 3 weeks. A repeat imaging study in March 2021 showed a 1.3 cm hypodense right adrenal lesion and a 1.5 cm cutaneous nodule involving the inferior right flank. Thereafter, a dual immunotherapy was initiated consisting of nivolumab and ipilimumab. She received the latter for 4 cycles and has been on nivolumab since then. Her last dose was mid July 2020. Apparently she was admitted to the hospital recently for constellation of confusion and during this hospitalization she was found to have probable encephalitis, acute renal failure with peak creatinine of greater than 10, intermittent fever and currently on hemodialysis. Patient was also reported to have deep vein thrombosis and there is a concern for HIT in this lady. Hematology/oncology has been consulted for recommendation regarding anticoagulation management. Allergies Allergy/AdvReac Type Severity Reaction Status Date / Time tramadol Allergy Mild NASUEA/CONF Verified 09/09/21 19:34 USION cephalexin [From Keflex] AdvReac Mild upset Verified 09/09/21 19:34 stomach Home Medications Medication Instructions Recorded Confirmed Type amlodipine 5 mg tablet (Norvasc) 5 mg PO QAM 12/05/18 09/09/21 History cholecalciferol (vitamin D3) 25 25 mcg PO QAM 12/11/19 09/09/21 History mcg (1,000 unit) tablet (Vitamin D3) metoprolol tartrate 25 mg tablet 12.5 mg PO BID 03/26/20 09/09/21 History diphenhydramine HCl 25 mg capsule 25 mg PO HS PRN cap 03/28/20 09/09/21 History (Benadryl) multivitamin 1 tab PO QAM 04/25/20 09/09/21 History cetirizine 10 mg tablet (Zyrtec) 10 mg PO QAM 01/14/21 09/09/21 History montelukast 10 mg tablet 10 mg PO DAILY 08/15/21 09/09/21 History nystatin 100,000 unit/mL oral 5 ml PO QID #140 ml 08/21/21 09/09/21 Rx suspension aspirin 81 mg tablet,delayed 81 mg PO QAM #30 tab 09/03/21 09/09/21 Rx release atorvastatin 40 mg tablet 40 mg PO QAM #30 tab 09/03/21 09/09/21 Rx apixaban 2.5 mg tablet (Eliquis) 2.5 mg PO BID #60 tab 09/05/21 09/09/21 Rx ferrous sulfate 325 mg (65 mg 325 mg PO QAM #30 tab 09/05/21 09/09/21 Rx iron) tablet,delayed release hydrocortisone 10 mg tablet 10 mg PO HS #30 tab 09/05/21 09/09/21 Rx (Cortef) hydrocortisone 10 mg tablet 20 mg PO QAM #60 tab 09/05/21 09/09/21 Rx (Cortef) pantoprazole 40 mg tablet,delayed 40 mg PO BID #60 tab 09/05/21 09/09/21 Rx release acetaminophen 325 mg tablet 650 mg PO Q6H PRN 09/09/21 09/09/21 History (Tylenol) levofloxacin 750 mg tablet 750 mg PO QPM 09/09/21 09/09/21 History prednisone 10 mg tablet See Rx Instructions .ROUTE .COMPLEX 09/09/21 09/09/21 History promethazine 25 mg tablet 25 mg PO Q6H PRN 09/09/21 09/09/21 History Patient History Medical History Cerebral infarct "Presumed old right frontal lobe cerebral infarct" - per Dec 2019 PET scan -- pt unaware/denies 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 No chemo or XRT GERD (gastroesophageal reflux disease) Hearing deficit Hiatal hernia Hx of pulmonary embolus 2019 s/p foot surgery, was on Eliquis for a few months. 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 Tinsley Surgical History H/O excision of mass History of ankle surgery RECONSTRUCTION OF LEFT ANKLE History of biopsy History of cataract surgery History of colonoscopy History of esophagogastroduodenoscopy (EGD) History of laryngoscopy Hx of bladder repair surgery Hx of foot surgery reconstructive right foot surgery (2018) Hx of hysterectomy Hx of total knee replacement RIGHT AND LEFT Hx of tubal ligation PONV (postoperative nausea and vomiting) Family History Mother Hearing loss Cancer Sister Hearing loss Cancer Other Breast cancer Family history non-contributory No family history of adverse response to anesthesia No family history of bleeding disorder Social History Smoking Status: Never smoker Second Hand Exposure: No; Hx Alcohol Use: No Hx Substance Use: No Preferred Language: Bangladeshi Communication Ability: Effective Strategic Accounts 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: No Beliefs That Will Affect Care: None marital status: Current Living Situation: Retirement Current Living Situation Comment: [facility] How many Children do You have: 2 Feels Safe at Home: Yes during the past year weight has: increased > 10 lbs Assistive Devices: Cane and Walker Results & Data ([facility]) Vital Signs (Past 12 Hours) Vital Signs Temp Pulse Pulse Pulse Resp BP BP 09/29/21 20:02 36.6 C 68 18 115/58 L 09/29/21 14:19 72 09/29/21 13:10 36.8 C 71 100/58 L 09/29/21 12:45 70 91/58 L 09/29/21 12:15 66 86/48 L 09/29/21 11:45 80 82/50 L 09/29/21 11:15 83 88/53 L 09/29/21 11:00 36.1 C L 73 18 105/62 09/29/21 10:45 73 100/48 L 09/29/21 10:15 71 100/69 09/29/21 09:45 70 122/62 09/29/21 09:23 36.6 C 68 70 Pulse Ox 09/29/21 20:02 95 09/29/21 14:19 09/29/21 13:10 09/29/21 12:45 09/29/21 12:15 09/29/21 11:45 09/29/21 11:15 09/29/21 11:00 99 09/29/21 10:45 09/29/21 10:15 09/29/21 09:45 09/29/21 09:23
[2021-09-30] MEDS: PIPERACILLIN/TAZOBACTAM 3.375 GM in DEXTROSE 5% 100 ML IV SCH ×2 (07:37→20:58)
[2021-09-30] MEDS: methylPREDNISolone 60 MG in SYRINGE 0 ML IV SCH (07:38)
[2021-09-30 07:42] LABS: Basophils # (auto) 0.01 K/uL (0-0.2); Basophils % (auto) 0.2 %; Eosinophils # (auto) 0.02 K/uL (0-0.5); Eosinophils % (auto) 0.3 %; Hematocrit (blood only) 24.1 % (37-47); Hemoglobin 7.6 g/dL (12.0-16.0); Immature Granulocytes # (auto) 0.02 K/uL (0.00-0.02); Immature Granulocytes % (auto) 0.3 %; Lymphocytes # (auto) 0.98 K/uL (1.2-3.4); Lymphocytes % (auto) 15.2 %; Mean Corpuscular Hemoglobin 29.5 pg (25-34); Mean Corpuscular Hgb Conc 31.5 g/dL (32-36); Mean Corpuscular Volume 93.4 fL (80-100); Mean Platelet Volume 9.9 fL (7.4-10.4); Monocytes # (auto) 0.29 K/uL (0.11-0.59); Monocytes % (auto) 4.5 %; Neutrophils # (auto) 5.14 K/uL (1.4-6.5); Neutrophils % (auto) 79.5 %; Platelet Count 110 K/uL (130-400); RDW Standard Deviation 62.7 fL (36.4-46.3); Red Blood Count 2.58 M/uL (4.2-5.4); White Blood Count 6.46 K/uL (4.8-10.8)
[2021-09-30 07:49] LABS: INR 1.4 (0.9-1.1); Prothrombin Time 14.6 Seconds (9.0-12.0)
[2021-09-30] MEDS: NEPHROCAPS PO SCH (08:06)
[2021-09-30] MEDS: METOPROLOL TARTRATE 50 MG TAB PO SCH ×2 (08:06→20:56)
[2021-09-30] MEDS: amLODIPine BESYLATE 5 MG TAB PO SCH (08:06)
[2021-09-30] MEDS: PANTOprazole 40 MG TAB PO SCH ×2 (08:06→20:56)
[2021-09-30] MEDS: MONTELUKAST SODIUM 10 MG TABLET PO SCH (08:07)
[2021-09-30] MEDS: ASPIRIN 81 MG ECTAB PO SCH (08:07)
[2021-09-30] MEDS: CALCIUM CARBONATE 500 MG CHEWABLE TAB PO SCH ×3 (08:10→16:30)
[2021-09-30 08:11] LABS: BUN Creatinine Ratio 5.4 (10-20); C Reactive Protein 6.68 mg/dl (0-0.5); Calcium 7.8 mg/dl (8.5-10.1); Creatinine Clr Calc Pharmacy 13.1 ml/min; Est GFR (African American) 10.9 ml/min; Est GFR (Non-African American) 9.4 ml/min; Potassium 3.9 mmol/L (3.5-5.1)
[2021-09-30 08:21] LABS: Basophilic Stippling 1+
--- NOTE | 2021-09-30 08:41 | Hospitalist Progress Note ---
Date of Service September 30, 2021 Assessment & Plan (1) Encephalitis: Plan: 76-year-old female with past medical history HTN, GERD, History of DVT, metastatic melanoma (on Keytruda and oral steroid taper), who presented with fever and altered mental status and admitted for metabolic encephalitis and acute kidney injury in the setting of recent discharge for presumed sepsis for fungal UTI, and subacute CVA on 09/05. Goals of care -Goals of care conversation with son who is POA and sister who is her closest relative was completed on 09/30 -At this time, family is still desiring full intervention but will hold a family meeting to have extended discussion -Will reach back out to family today for update on their decision-making for her care -Son who is POA will need to provide paperwork verification of his POA, case management following this -Pt still lacks decisional capacity given her mental status at this time Deep venous thrombosis -Known history of previous DVTs- is normally on Eliquis and held on admission -09/29 doppler- DVT in R femoral vein -Doppler also demonstrating L groin-distal left thigh fluid collection- likely resolving intramuscular hematoma. Recommend f/u imaging in 3 months -Hematology consulted, awaiting recommendations Thrombocytopenia -Plts 180 -> 90 on 09/28, workup initiated as below -Normal fibrinogens- 290 -> 270 -> 240 -> 270 -Increased fibrinogen degradation products -D-dimer 6000+, subsequent CTA chest negative for PE -Dopplers as above -INR currently 1.4 -Peripheral smear- non-specific normocytic anemia, thrombocytopenia without morphology abnormality -Plts uptrending, currently 110 today -Consumptive coagulopathy in setting of acute illness. May be DIC, HIT (intermediate 4T's score), TTP -Hematology consulted, awaiting recommendations -Suspect potential TTP- LDH elevated at 300, awaiting haptoglobin and hematology will review peripheral smear Fever of unknown origin -Patient w/ temp 38.6 on 09/27, also hypoxia to 80s O2%. Initiated sepsis workup for possible pneumonia concern -WBC wnl, CRP 7.84, Procalcitonin 1.39, CXR with small b/l pleural effusions and no focal consolidations -BCx preliminary negative, MRSA nares negative -Initiated Zosyn, Levaquin added on 09/28 for double pseudomonal coverage -CTAP 09/29- b/l pleural effusions with atelectasis -CRP 5.6 -> 6.7 today, procalcitonin downtrend to 1.12. Currently afebrile, no fevers since -Continue Zosyn and Levaquin given unclear etiology of febrile illness -Trend CBC, CRP, procalcitonin SHAMEKA secondary to ATN -Baseline creatinine 0.9-1.1. Cr at 4.25, dialysis scheduled for tomorrow -SHAMEKA possibly secondary to ATN/AIN from immunotherapy -Still no sign of renal recovery- no significant urine output -Maintain Rollins catheter -Nephrology consulted. -nivolumab/ipilimumab prior to admission. Both agents can be associated with SHAMEKA/AIN -Pt currently on dialysis, next session 10/01 -Epogen 1000units x1 during dialysis. -Slow taper of steroid reviewed with oncology, who initially recommended IV methylprednisone. -Tums TID, metoprolol 50mg BID, amlodipine 10mg. -Continue to trend AM BMP, monitor I&O's. Anemia -Hgb 6.4 on 09/21, transfused pRBC x2 bags. Post transfusion hgb 9.5 -Hgb 8.0 to 7.6 today, will recheck Hgb at noon, also ordered type/cross -Trend CBC Altered mental status/Delirium -Pt continues to wax and wane with respect to alertness and orientation -Other than creatinine, no obvious acute metabolic source. Suspect subacute delirium secondary to encephalitis, ATN-SHAMEKA and possible underlying dementia -Continue to monitor Encephalitis -AMS and fever to 38.1 in ED. -Patient received 1 dose of vancomycin in the ER. -Initially thought to be due to Keytruda b/c of side effect profile. -Oncology consulted: -Doubtful Keytruda was responsible for encephalitis, as she received her last dose long before for her symptoms started. -Suspects hypophysitis. -AM Cortisol low at 2.29, FSH and LH low at 1.72 & <0.20, respectively, GH and ACTH low. TSH 1.72 Hypophysitis -Reached out to endocrinology -Wean steroids- currently 20mg hydrocortisone in the AM, 10mg hydrocortisone in the PM. -Continue to wean Methylprednisolone. Currently 60 mg IV and will keep at this dose for time being given unclear illness and uncertain goals of care. VRE UTI -Urine culture as above (VRE, marsha). -Completed 5 days of Daptomycin. -Monitor I&O's HTN -Continue amlodipine and metoprolol as above. Metastatic melanoma -Patient follows with hematology. On Keytruda and hydrocortisone at home. Code: Full code Dispo: PCU with telemetry FEN/GI: Low potassium diet DVT Prophylaxis: Deferring anticoagulation pending hematology recommendations (2) SHAMEKA (acute kidney injury): (3) Sepsis: (4) Anemia: (5) Leukocytosis: (6) Adrenal suppression: (7) Cerebrovascular accident (CVA): (8) Fever of unknown origin: (9) Chronic kidney disease, stage III (moderate): (10) History of DVT (deep vein thrombosis): Admission and Anticipated Discharge Date Admission Date: September 09, 2021 Supervising Physician Co-Signing Physician Notes Attending attestation Pt seen and examined in concert with Dr. Roberts. In agreement with the documented findings as noted in the resident documentation with any exceptions or additions as noted here. No acute complaints at this time. Conversationally tangential without apparent understanding of medical issues discussed, AOOx0 V/S as noted. On examination, S1/S2 nl RRR no MCG. CTAB though somewhat coarse. Abd NT/ND BS+ve. Scattered ecchymosis without significant bruising unchanged from yesterday. Fever in the setting of R femoral DVT, thrombocytopenia concerning for DIC - hematology consult - ongoing HIT evaluation and fibrinogen trending with improvement. Continue levofloxacin and Zosyn, likely d/c levofloxacin in AM. Continue steroids at present dose, resume taper in AM. Trend PT/INR, fibrinogen, CBC. C Delirium, potentially 2/2 encephalitis - hypophysitis vs. Keytruda induced. Persistent waxing and waning orientation with tangential speech. In light of complicated, though stable illness, will plan for GOC meeting with son and family today if possible. Resume steroid wean tomorrow. Acute renal failure, likely 2/2 ATN vs Keytruda induced AIN - nephrology consultation - on HD M/W/F, continue monitoring labs Anemia s/p 2UPRBC - trend CBC Metastatic Melanoma Else see resident documentation as noted. Subjective No acute events overnight. On evaluation, pt reports she feels ok and denies somatic complaints. States she still would like to take things one day at a time and do everything she can to get better. She did ask if she was dying and stated she does not feel that she is approaching end of life. She was still confused but able to engage in interview to a slightly greater extent than day prior. Review of Systems Constitutional: as per Subjective / HPI Physical Exam Constitutional: WD/WN, vitals as above no acute distress Eyes: + anicteric sclerae Neck: normal visual inspection Respiratory: normal respiratory effort; no respiratory distress Auscultation: + bronchial breath sounds Cardiovascular: Rate/Rhythm: regular rate and regular rhythm Gastrointestinal (Abdomen): Inspection/Auscultation: abdomen normal to inspection and normal bowel sounds Musculoskeletal: Head/Neck/Chest: normocephalic and head atraumatic Skin: no rashes, warm and dry Neurologic: moves all extremities Psychiatric: Orientation: alert, oriented to person and cooperative; + not oriented to place and + not oriented to time Eye Contact: good eye contact Results & Data Results & Data ([facility]) Vital Signs (Past 12 Hours) Vital Signs Temp Pulse Pulse Pulse Resp BP Pulse Ox 09/30/21 07:40 36.5 C 67 20 138/68 93 09/30/21 03:49 36.6 C 68 18 135/75 95 09/29/21 23:20 36.0 C L 66 16 125/66 94 09/29/21 23:00 61 Resident Activity Tracking Resident Involvement: Resident Care Provided Care Provided: Adult Hospital Medicine (1) Anemia Anemia type: unspecified type Qualified Code(s): D64.9 - Anemia, unspecified (2) Leukocytosis Leukocytosis type: unspecified Qualified Code(s): D72.829 - Elevated white blood cell count, unspecified (3) Sepsis Sepsis acute organ dysfunction status: unspecified Sepsis type: sepsis due to unspecified organism Qualified Code(s): A41.9 - Sepsis, unspecified organism
[2021-09-30] MEDS ORDERED: SODIUM CHLORIDE 0.9% 250 ML IV PRN (08:56)
--- NOTE | 2021-09-30 10:31 | Nephrology Progress Note ---
Date of Service September 30, 2021 Assessment & Plan (1) SHAMEKA (acute kidney injury): Plan: SHAMEKA related to ATN vs immune checkpoint inhibitor (nivolumab/ipilimumab) associated AIN. Remains oliguric. Completed HD yesterday with adequate clearance and UF. TDC functioning well. Started HD 09/19/21 via R femoral catheter. [facility] TDC placed by Dr. Michelle 09/26/21. No signs of renal recovery. Medications appropriately dosed for kidney dysfunction. Remains on slow methylprednisolone taper. Taper per primary team. Rollins may be removed per nursing protocol. (2) Anemia: Plan: Epogen 57068 units x 1 dose provided with HD 09/26. Tsat 65 on 09/16. Hematology consult noted. Notable hematoma in leg. (3) Hypertension: Plan: BP acceptable. Volume status controlled. Tolerating amlodipine and metoprolol well. (4) Thrombocytopenia: Plan: Hematology consult pending. Labs concerning for possible DIC. No obvious infectious source. (5) Chronic kidney disease, stage III (moderate): Plan: Baseline creatinine 1.1 to 1.3 mg/dL. Admission and Anticipated Discharge Date Admission Date: September 09, 2021 Subjective No acute events overnight. Denies pain this AM. No fevers or chills. Breathing comfortably. Tolerated HD yesterday without complications. Net UF 1.7 L. Review of Systems Review of Systems: All systems reviewed & are unremarkable except as noted in HPI & below Physical Exam Constitutional: + frail appearing; no acute distress Eyes: + anicteric sclerae; no corneal abnormality ENMT: Ears: + hearing impairment Mouth: no oral mucosal abnormality and oral mucous membranes not dry Neck: normal visual inspection and trachea midline Respiratory: normal respiratory effort Auscultation: lungs clear to auscultation bilaterally and + diminished lung sounds (at bases) Cardiovascular: Rate/Rhythm: regular rate Heart Sounds: normal S1, normal S2 and + murmur Extremities: + edema (non pitting and pedal edema in both legs, dependent edema) Musculoskeletal: Extremities: no cyanosis and no clubbing Skin: + turgor decreased; no lesions Neurologic: Motor/Sensory: no tremor and no asterixis Psychiatric: Orientation: alert, oriented to place and cooperative; + not oriented to time Genitourinary: Rollins Results & Data ([facility]) Vital Signs (Past 12 Hours) Vital Signs Temp Pulse Pulse Pulse Resp BP Pulse Ox 06/14/22 07:40 36.5 C 67 20 138/68 93 09/30/21 03:49 36.6 C 68 18 135/75 95 09/29/21 23:20 36.0 C L 66 16 125/66 94 09/29/21 23:00 61 Laboratory Results Laboratory Results - last 24 hr 09/28/21 09/29/21 09/30/21 06:02 16:25 07:06 WBC 6.46 RBC 2.58 L Hgb 7.6 L Hct 24.1 L MCV 93.4 MCH 29.5 MCHC 31.5 L RDW Std Deviation 62.7 H RDW Coeff of Dominic 19.0 H Plt Count 110 L MPV 9.9 Immature Gran % (Auto) 0.3 Neut % (Auto) 79.5 Lymph % (Auto) 15.2 [place] % (Auto) 4.5 Eos % (Auto) 0.3 Baso % (Auto) 0.2 Neut # (Auto) 5.14 Lymph # (Auto) 0.98 L [place] # (Auto) 0.29 Eos # (Auto) 0.02 Baso # (Auto) 0.01 Immature Gran # (Auto) 0.02 Basophilic Stippling 1+ Peripher Smr Path Cons Haptoglobin PT INR Fibrinogen 274 Sodium Potassium Chloride Carbon Dioxide Anion Gap BUN Creatinine Est Cr Clr Drug Dosing Est GFR ( Amer) Est GFR (Non-Af Amer) BUN/Creatinine Ratio Glucose Calcium Lactate Dehydrogenase C-Reactive Protein Procalcitonin 09/30/21 09/30/21 09/30/21 07:06 07:06 07:06 WBC RBC Hgb Hct MCV MCH MCHC RDW Std Deviation RDW Coeff of Dominic Plt Count MPV Immature Gran % (Auto) Neut % (Auto) Lymph % (Auto) [place] % (Auto) Eos % (Auto) Baso % (Auto) Neut # (Auto) Lymph # (Auto) [place] # (Auto) Eos # (Auto) Baso # (Auto) Immature Gran # (Auto) Basophilic Stippling Peripher Smr Path Cons Haptoglobin PT 14.6 H INR 1.4 H Fibrinogen Sodium 133 L Potassium 3.9 Chloride 98 Carbon Dioxide 27 Anion Gap 8 BUN 23 D Creatinine 4.25 H D Est Cr Clr Drug Dosing 13.1 Est GFR ( Amer) 10.9 Est GFR (Non-Af Amer) 9.4 BUN/Creatinine Ratio 5.4 L Glucose 84 Calcium 7.8 L Lactate Dehydrogenase C-Reactive Protein 6.68 H Procalcitonin 1.12 H 09/30/21 09/30/21 07:06 07:06 WBC RBC Hgb Hct MCV MCH MCHC RDW Std Deviation RDW Coeff of Dominic Plt Count MPV Immature Gran % (Auto) Neut % (Auto) Lymph % (Auto) [place] % (Auto) Eos % (Auto) Baso % (Auto) Neut # (Auto) Lymph # (Auto) [place] # (Auto) Eos # (Auto) Baso # (Auto) Immature Gran # (Auto) Basophilic Stippling Peripher Smr Path Cons Haptoglobin Pending PT INR Fibrinogen Sodium Potassium Chloride Carbon Dioxide Anion Gap BUN Creatinine Est Cr Clr Drug Dosing Est GFR ( Amer) Est GFR (Non-Af Amer) BUN/Creatinine Ratio Glucose Calcium Lactate Dehydrogenase 297 H C-Reactive Protein Procalcitonin PG Care Time/CCT Total # of Minutes Spent Total Time Spent with Patient: Total time spent is greater than 50% in coordination of care (as documented) at patient's floor/unit and/or counseling patient: Coding Level of Care Code 11381 Subseq Hosp Care Lvl 3 Diagnoses SHAMEKA (acute kidney injury) N17.9 Anemia D64.9 Anemia type: unspecified type Hypertension I10 Thrombocytopenia D69.6 Chronic kidney disease, stage III (moderate) N18.30 (1) Anemia Anemia type: unspecified type Qualified Code(s): D64.9 - Anemia, unspecified
[2021-09-30 12:32] LABS: Hemoglobin 8.1 g/dL (12.0-16.0)
[2021-09-30] MEDS ORDERED: levoFLOXacin/D5W 500 MG/100 ML BAG IV SCH (16:30)
[2021-09-30 16:51] LABS: Fibrinogen 283 mg/dl (184-400)
[2021-10-01] MEDS: ACETAMINOPHEN 325 MG TAB PO PRN (02:39)
[2021-10-01] MEDS: ALUMINUM/MAGNESIUM SUSP 30 ML UDC PO PRN ×2 (02:45→20:23)
[2021-10-01 06:36] LABS: Hemoglobin 7.1 g/dL (12.0-16.0); Mean Corpuscular Hemoglobin 29.5 pg (25-34); Mean Corpuscular Hgb Conc 32.3 g/dL (32-36); Mean Corpuscular Volume 91.3 fL (80-100); Mean Platelet Volume 9.6 fL (7.4-10.4); Platelet Count 114 K/uL (130-400); RDW Coefficient of Variation 19.2 % (11.5-14.5); RDW Standard Deviation 61.8 fL (36.4-46.3); Red Blood Count 2.41 M/uL (4.2-5.4); White Blood Count 6.13 K/uL (4.8-10.8)
[2021-10-01 06:39] LABS: INR 1.4 (0.9-1.1); Prothrombin Time 14.6 Seconds (9.0-12.0)
[2021-10-01 06:47] LABS: BUN Creatinine Ratio 5.7 (10-20); C Reactive Protein 4.15 mg/dl (0-0.5); Calcium 7.7 mg/dl (8.5-10.1); Creatinine Clr Calc Pharmacy 10.6 ml/min; Est GFR (African American) 8.5 ml/min; Est GFR (Non-African American) 7.3 ml/min; Potassium 3.4 mmol/L (3.5-5.1)
[2021-10-01 06:49] LABS: Anisocytosis Present; Basophilic Stippling 1+; Basophils # (auto) 0.01 K/uL (0-0.2); Basophils % (auto) 0.2 %; Eosinophils # (auto) 0.06 K/uL (0-0.5); Immature Granulocytes # (auto) 0.02 K/uL (0.00-0.02); Immature Granulocytes % (auto) 0.3 %; Lymphocytes # (auto) 0.97 K/uL (1.2-3.4); Lymphocytes % (auto) 15.8 %; Monocytes # (auto) 0.47 K/uL (0.11-0.59); Monocytes % (auto) 7.7 %
[2021-10-01] MEDS: PIPERACILLIN/TAZOBACTAM 3.375 GM in DEXTROSE 5% 100 ML IV SCH (07:41)
[2021-10-01] MEDS: CALCIUM CARBONATE 500 MG CHEWABLE TAB PO SCH ×3 (07:41→16:39)
[2021-10-01] MEDS: ASPIRIN 81 MG ECTAB PO SCH (07:44)
[2021-10-01] MEDS: PANTOprazole 40 MG TAB PO SCH ×2 (07:44→20:19)
[2021-10-01] MEDS: amLODIPine BESYLATE 5 MG TAB PO SCH ×2 (07:44→07:48)
[2021-10-01] MEDS: MONTELUKAST SODIUM 10 MG TABLET PO SCH (07:44)
[2021-10-01] MEDS: METOPROLOL TARTRATE 50 MG TAB PO SCH ×2 (07:45→20:22)
[2021-10-01] MEDS: NEPHROCAPS PO SCH (07:45)
--- NOTE | 2021-10-01 08:00 | Hospitalist Progress Note ---
Date of Service October 01, 2021 Assessment & Plan (1) Encephalitis: Plan: 76-year-old female with past medical history HTN, GERD, History of DVT, metastatic melanoma (on Keytruda and oral steroid taper), who presented with fever and altered mental status and admitted for metabolic encephalitis and acute kidney injury in the setting of recent discharge for presumed sepsis for fungal UTI, and subacute CVA on 09/05. Goals of care -Goals of care conversation with son who is POA and sister who is her closest relative was completed on 09/30 -At this time, family is still desiring full intervention but open to comfort measures -Family states they will hold a family meeting to have extended discussion -Son who is POA will need to provide paperwork verification of his POA, case management following this -Son/POA and family will visit today to have in-person goals of care discussion with hospitalist team -Pt still lacks decisional capacity given her mental status at this time Acute renal failure secondary to ATN -Baseline creatinine 0.9-1.1. Cr at 5.26 today -SHAMEKA possibly secondary to ATN/AIN from immunotherapy -Still no sign of renal recovery- no significant urine output -Maintain Rollins catheter -Nephrology consulted. -nivolumab/ipilimumab prior to admission. Both agents can be associated with SHAMEKA/AIN -Pt currently on dialysis, next session today -Epogen 1000units x1 during dialysis. -Slow taper of steroid reviewed with oncology, who initially recommended IV methylprednisone. -Tums TID, metoprolol 50mg BID, amlodipine 10mg. -Continue to trend BMP, monitor I&O's. Anemia -Hgb 6.4 on 09/21, transfused pRBC x2 bags. Post transfusion hgb 9.5 -Hgb 7.1 to 7.2 today -1u pRBC transfused after consent obtained from POA, will recheck Hgb post transfusion -Trend CBC Deep venous thrombosis -Known history of previous DVTs- is normally on Eliquis and held on admission -09/29 doppler- DVT in R femoral vein -Doppler also demonstrating L groin-distal left thigh fluid collection- likely resolving intramuscular hematoma. Recommend f/u imaging in 3 months -Hematology consulted -Recommended initiation of warfarin 5 mg daily -Will hold off on anticoagulating pending goals of care discussion as above Thrombocytopenia -Plts 180 -> 90 on 09/28, workup initiated as below -Normal serial fibrinogens -Increased fibrinogen degradation products -D-dimer 6000+, subsequent CTA chest negative for PE -Dopplers as above -INR currently 1.4 -Peripheral smear- non-specific normocytic anemia, thrombocytopenia without morphology abnormality -Plts uptrending, currently 114 today -Consumptive coagulopathy in setting of acute illness. May be DIC, HIT (intermediate 4T's score), TTP -Hematology consulted -Suspect potential TTP- LDH elevated at 300, haptoglobin <8 -PF4 pending for HIT Fever of unknown origin -Patient w/ temp 38.6 on 09/27, also hypoxia to 80s O2%. Initiated sepsis workup for possible pneumonia concern -WBC wnl, CRP 7.84, Procalcitonin 1.39, CXR with small b/l pleural effusions and no focal consolidations -BCx preliminary negative, MRSA nares negative -Initiated Zosyn, Levaquin added on 09/28 for double pseudomonal coverage -CTAP 09/29- b/l pleural effusions with atelectasis -CRP 6.7 -> 4.2 today. Currently afebrile, no fevers since -Continue Zosyn and Levaquin given unclear etiology of febrile illness -Pending goals of care discussion, may discontinue Levaquin later today -Trend CBC Altered mental status/Delirium -Pt continues to wax and wane with respect to alertness and orientation -Other than creatinine, no obvious acute metabolic source. Suspect subacute delirium secondary to encephalitis, ATN-SHAMEKA and possible underlying dementia -Continue to monitor Encephalitis -AMS and fever to 38.1 in ED. -Patient received 1 dose of vancomycin in the ER. -Initially thought to be due to Keytruda b/c of side effect profile. -Oncology consulted: -Doubtful Keytruda was responsible for encephalitis, as she received her last dose long before for her symptoms started. -Suspects hypophysitis. -AM Cortisol low at 2.29, FSH and LH low at 1.72 & <0.20, respectively, GH and ACTH low. TSH 1.72 Hypophysitis -Reached out to endocrinology -Wean steroids- currently 20mg hydrocortisone in the AM, 10mg hydrocortisone in the PM. -Continue to wean Methylprednisolone. Currently 60 mg IV and will keep at this dose for time being given unclear illness and uncertain goals of care -Pending goals of care discussion, may resume taper tomorrow AM VRE UTI -Urine culture as above (VRE, marsha). -Completed 5 days of Daptomycin. -Monitor I&O's HTN -Continue amlodipine and metoprolol as above. Metastatic melanoma -Patient follows with hematology. On Keytruda and hydrocortisone at home. Code: Full code Dispo: PCU with telemetry FEN/GI: Low potassium diet DVT Prophylaxis: Deferring anticoagulation pending hematology recommendations (2) SHAMEKA (acute kidney injury): (3) Sepsis: (4) Anemia: (5) Leukocytosis: (6) Adrenal suppression: (7) Cerebrovascular accident (CVA): (8) Fever of unknown origin: (9) Chronic kidney disease, stage III (moderate): (10) History of DVT (deep vein thrombosis): Admission and Anticipated Discharge Date Admission Date: September 09, 2021 Supervising Physician Co-Signing Physician Notes Attending attestation Pt seen and examined in concert with Dr. Roberts. In agreement with the documented findings as noted in the resident documentation with any exceptions or additions as noted here. Still no acute complaints. Tangential in conversation without apparent understanding of medical issues discussed, AOOx0 V/S as noted. On examination, S1/S2 nl RRR no MCG. CTAB though somewhat coarse. Abd NT/ND BS+ve. Scattered ecchymosis without significant bruising. Goals of care - meeting to decide further course today at 1630 Fever in the setting of R femoral DVT, thrombocytopenia concerning for DIC - hematology consult - send out HIT evaluation pending, fibrinogen trending. Continue levofloxacin and Zosyn, likely d/c levofloxacin following family meeting. Continue steroids at present dose, resume taper after GOC conversation. Trend PT/INR, CBC. Delirium, potentially 2/2 encephalitis - hypophysitis vs. Keytruda induced. Ongoing waxing and waning orientation with tangential speech. GOC conversation today, resume steroid wean as above Acute renal failure, likely 2/2 ATN vs Keytruda induced AIN - nephrology consultation - on HD M/W/F, continue monitoring labs Anemia s/p 2UPRBC - trend CBC Metastatic Melanoma Else see resident documentation as noted. Subjective No acute events overnight. Pt continues to deny complaints, states she feels well. Repeated themes of wanting to get better, was nonsensical at times. Somewhat more able to engage meaningfully in interview today. Breathing well, denying pain. Denies any dyspnea, lightheadedness, fatigue, bruising. Review of Systems Constitutional: as per Subjective / HPI Physical Exam Constitutional: WD/WN, vitals as above no acute distress No pallor Eyes: + anicteric sclerae Neck: normal visual inspection Respiratory: normal respiratory effort; no respiratory distress Auscultation: lungs clear to auscultation bilaterally and + bronchial breath sounds Cardiovascular: Rate/Rhythm: regular rate and regular rhythm Extremities: no edema Gastrointestinal (Abdomen): Inspection/Auscultation: abdomen normal to inspection and normal bowel sounds Musculoskeletal: Head/Neck/Chest: normocephalic and head atraumatic Skin: no rashes, warm and dry ecchymosis noted over L side of distal neck/chest Neurologic: moves all extremities Psychiatric: Orientation: alert, oriented to person, oriented to time and cooperative; + not oriented to place Eye Contact: good eye contact Results & Data Results & Data ([facility]) Vital Signs (Past 12 Hours) Vital Signs Temp Pulse Pulse Pulse Resp BP Pulse Ox 10/01/21 07:46 36.5 C 10/01/21 07:40 75 20 138/76 94 10/01/21 03:00 36.6 C 69 16 145/78 H 95 09/30/21 23:00 36.8 C 65 14 158/73 H 94 09/30/21 22:20 67 Resident Activity Tracking Resident Involvement: Resident Care Provided Care Provided: Adult Hospital Medicine (1) Anemia Anemia type: unspecified type Qualified Code(s): D64.9 - Anemia, unspecified (2) Leukocytosis Leukocytosis type: unspecified Qualified Code(s): D72.829 - Elevated white blood cell count, unspecified (3) Sepsis Sepsis acute organ dysfunction status: unspecified Sepsis type: sepsis due to unspecified organism Qualified Code(s): A41.9 - Sepsis, unspecified organism
[2021-10-01 08:39] LABS: Hematocrit (blood only) 22.1 % (37-47); Hemoglobin 7.2 g/dL (12.0-16.0)
[2021-10-01] MEDS: methylPREDNISolone 60 MG in SYRINGE 0 ML IV SCH (08:42)
--- NOTE | 2021-10-01 09:59 | Nephrology Progress Note ---
Date of Service October 01, 2021 Assessment & Plan (1) SHAMEKA (acute kidney injury): Plan: SHAMEKA related to ATN vs immune checkpoint inhibitor (nivolumab/ipilimumab) associated AIN. Remains oliguric. Started HD 09/19/21 via R femoral catheter. [facility]J TDC placed by Dr. Michelle 09/26/21. No signs of renal recovery. Orders for HD today entered into the EHR and reviewed with dialysis nurse. Patient remains bedside treatment for isolation due to VRE in urine treated earlier during admission. Per infection control, will require rectal swabs to demonstrate clearance. No heparin with HD. Medications appropriately dosed for kidney dysfunction. Remains on slow methylprednisolone taper. Taper per primary team. I would strongly consider a dose reduction at this time. Rollins may be removed per nursing protocol. (2) Anemia: Plan: H/H stable. Drop in H/H and plts noted following catheter placement associated with identification of femoral DVT and hematoma. Epogen 47125 units x 1 dose provided with HD 09/26. Tsat 65 on 09/16. Hematology following. HIT ab pending. No schistocytes on peripheral smear. Thankfully, evidence of DIC improving. (3) Hypertension: Plan: BP acceptable. Volume status controlled. Tolerating amlodipine and metoprolol well. (4) Thrombocytopenia: Plan: Heparin held. (5) Chronic kidney disease, stage III (moderate): Plan: Baseline creatinine 1.1 to 1.3 mg/dL. Admission and Anticipated Discharge Date Admission Date: September 09, 2021 Subjective No acute events overnight. Denies pain this AM. No fevers or chills. Breathing comfortably. Pleasantly confused. When evaluating her HD catheter, Kezia told me that "they had to operate on my neck to remove my cancer." I asked her about hemodialysis treatments and she told me that treatments are being used to help remove more cancer from her body. Review of Systems Review of Systems: All systems reviewed & are unremarkable except as noted in HPI & below Physical Exam Constitutional: + frail appearing; no acute distress Eyes: + anicteric sclerae; no corneal abnormality ENMT: Ears: + hearing impairment Mouth: no oral mucosal abnormality and oral mucous membranes not dry Neck: normal visual inspection and trachea midline Respiratory: normal respiratory effort Auscultation: lungs clear to auscultation bilaterally and + diminished lung sounds (at bases) Cardiovascular: Rate/Rhythm: regular rate Heart Sounds: normal S1, normal S2 and + murmur Extremities: + edema (non pitting and pedal edema in both legs, dependent edema) Musculoskeletal: Extremities: no cyanosis and no clubbing Skin: + turgor decreased; no lesions Neurologic: Motor/Sensory: no tremor and no asterixis Psychiatric: Orientation: alert and cooperative; + not oriented to place and + not oriented to time Results & Data ([facility]) Vital Signs (Past 12 Hours) Vital Signs Temp Pulse Pulse Pulse Resp BP Pulse Ox 10/01/21 07:46 36.5 C 10/01/21 07:40 75 20 138/76 94 10/01/21 03:00 36.6 C 69 16 145/78 H 95 09/30/21 23:00 36.8 C 65 14 158/73 H 94 09/30/21 22:20 67 PG Care Time/CCT Total # of Minutes Spent Total Time Spent with Patient: Total time spent is greater than 50% in coordination of care (as documented) at patient's floor/unit and/or counseling patient: Coding Level of Care Code 85151 Subseq Hosp Care Lvl 3 Diagnoses SHAMEKA (acute kidney injury) N17.9 Anemia D64.9 Anemia type: unspecified type Hypertension I10 Thrombocytopenia D69.6 Chronic kidney disease, stage III (moderate) N18.30 (1) Anemia Anemia type: unspecified type Qualified Code(s): D64.9 - Anemia, unspecified
[2021-10-01] MEDS ORDERED: SODIUM CHLORIDE 0.9% 250 ML IV PRN (11:57)
[2021-10-01 17:00] LABS: Fibrinogen 303 mg/dl (184-400)
[2021-10-01] MEDS ORDERED: ONDANSETRON INJ 2 MG/ML 2 ML VIAL IV PRN (17:54)
[2021-10-01] MEDS ORDERED: LORazepam 0.5 MG TAB PO PRN (17:54)
[2021-10-01] MEDS ORDERED: ONDANSETRON 4 MG OD TAB SL PRN (17:54)
[2021-10-01] MEDS ORDERED: MoRPHine SULFATE 5 MG/0.25 ML UDP PO PRN (17:54)
[2021-10-01] MEDS ORDERED: LORazepam 0.5 MG in SYRINGE 0.25 ML IV PRN (17:54)
--- NOTE | 2021-10-01 18:18 | Communication Note ---
Date of Service: October 01, 2021 Extensive discussions with patient's family including son ([employer] commercial litigation attorney) and sisters today outlining options when it comes to continued medical care for the patient and at this point time. Given her continued decline difficult to have these kinds of conversations with her as she does not consistently demonstrate comprehension of discussions or her fragile state. After these extensive discussions, Octaviano and family expressed desire to transition her from aggressive measures to comfort measures only in order to improve her quality of life. At this point time we will transition care to comfort measures only with discontinuation of aggressive medical interventions. Resident Activity Tracking Resident Involvement: Resident Care Provided Care Provided: Adult [facility] Medicine
--- NOTE | 2021-10-02 09:27 | Hospitalist Progress Note ---
Date of Service October 02, 2021 Assessment & Plan (1) Encephalitis: Plan: 76-year-old female with past medical history HTN, GERD, History of DVT, metastatic melanoma (on Keytruda and oral steroid taper), who presented with fever and altered mental status and admitted for metabolic encephalitis and acute kidney injury in the setting of recent discharge for presumed sepsis for fungal UTI, and subacute CVA on 09/05. Transitioned to comfort measures on 10/01 Palliative care -After discussion with family and son/POA over past few days, agreed to transition pt to comfort measures on 10/01 -[facility], case management following -Ativan, Zofran, pain PRNs available Acute renal failure secondary to ATN -Stopped dialysis after transition to comfort measures -Rollins catheter removed -No longer trending labs, I's/O's Anemia -Received 1u pRBC transfusion on 10/01 for Hgb 7.1, transitioned to [employer]ING[employer] before subsequent H/H recheck -No longer trending Hgb after transition to comfort measures Deep venous thrombosis -Known history of previous DVTs and active DVT in R femoral vein per 09/29 doppler -Spoke with family- deferring anticoagulation and treatment after transition to [employer] Thrombocytopenia -Concern for DIC, HIT, TTP -No longer working up after transition to [employer] -No longer trending CBC Fever of unknown origin -Temp 38.6 C on 09/27, no fevers since -Stopped Zosyn/Levaquin after CAKE WRINGER Altered mental status/Delirium -Still delirious -Reorientation as needed Hypophysitis -No longer treating with steroids after CAKE WRINGER Code: DNR/DNI Dispo: [facility], plan for hospice at [facility] FEN/GI: Regular DVT Prophylaxis: Deferring anticoagulation due to CAKE WRINGER (2) SHAMEKA (acute kidney injury): (3) Sepsis: (4) Anemia: (5) Leukocytosis: (6) Adrenal suppression: (7) Cerebrovascular accident (CVA): (8) Fever of unknown origin: (9) Chronic kidney disease, stage III (moderate): (10) History of DVT (deep vein thrombosis): Admission and Anticipated Discharge Date Admission Date: September 09, 2021 Supervising Physician Co-Signing Physician Notes Attending attestation Pt seen and examined in concert with Dr. Roberts. In agreement with the documented findings as noted in the resident documentation with any exceptions or additions as noted here. No acute complaints at this time. Poor understanding of medical issues and GOC impacts as reviewed AAOx0. V/S as noted. On examination, S1/S2 nl RRR no MCG. CTAB. Abd NT/ND BS+ve. Scattered ecchymosis without significant bruising. Metastatic melanoma with palliative goal - reviewed conversation and attempted to reinforce patient understanding but difficult in the setting of ongoing delirium. Continue symptom control as noted and coordinate with case management for placement per wishes of family. Else see resident documentation as noted. Subjective No acute events overnight. Transitioned to CAKE WRINGER on day prior. On evaluation this morning, pt was sleeping comfortably. Review of Systems Review of Systems: Deferred given pt sleeping and on CAKE WRINGER Physical Exam Physical Exam: General: sleeping comfortably, no acute distress Resp: CTAB, unlabored respirations Results & Data Results & Data ([facility]) Vital Signs (Past 12 Hours) Vital Signs Temp Pulse Pulse Resp BP Pulse Ox 10/01/21 23:26 36.8 C 95 H 14 152/88 H 94 10/01/21 22:20 91 H Resident Activity Tracking Resident Involvement: Resident Care Provided Care Provided: Adult Hospital Medicine (1) Anemia Anemia type: unspecified type Qualified Code(s): D64.9 - Anemia, unspecified (2) Leukocytosis Leukocytosis type: unspecified Qualified Code(s): D72.829 - Elevated white blood cell count, unspecified (3) Sepsis Sepsis acute organ dysfunction status: unspecified Sepsis type: sepsis due to unspecified organism Qualified Code(s): A41.9 - Sepsis, unspecified organism
--- NOTE | 2021-10-02 12:37 | Palliative Care Consultation ---
Date of Consultation October 02, 2021 Assessment & Plan (1) Confusion: Persistent. She does have some lucid moments but is not able to participate in goals of care discussion. (2) Palliative care encounter: Focus of care is comfort per family request. I spoke with her son, Octaviano. He tells me that he is struggling with the decision to some extent. He realizes that she is very sick and frail. He tells me that she has an advance directive and had said that she would want to be kept alive. However, he does not feel that she has quality of life at this point and that she would feel differently if she were able to participate in discussion. I did share with him that during my conversation with Kezia, much of what she said was nonsensical but at one point, she said to me "I'm tired, I don't know if I want to do this anymore". In response to her repeated questions about what tests she needs, I told her that we weren't going to worry about tests anymore and just focus on her comfort. She replied, "good". Octaviano does want to continue comfort measures. We discussed return to [facility] with hospice if she still has a bed. He is agreeable to this. He mentioned that his Aunt Lillie probably has questions and I offered to call. There was no answer at Lillie' number. (3) SHAMEKA (acute kidney injury): GFR<10. Will rotate morphine to oxycodone to minimize potential problems with opioid toxicity. She has not needed any medications thus far. (4) Melanoma: (5) UTI (urinary tract infection): Hematuria presence: with hematuria Urinary tract infection type: acute cystitis Qualified Code(s): N30.01 - Acute cystitis with hematuria History of Present Illness Reason for Consultation: Comfort care Requesting Physician: Dr. Angulo Attending Physician: Daquan Cervantes MD History of Present Illness 76 yo lady with melanoma who had been on keytruda. She also has h/o CKD, LLE DVT, PE, hypertension. She has been hospitalized three times in the last two months with recurrent fevers and encephalopathy. She has had persistent UTI with VRE. She has also developed SHAMEKA on CKD and has been on hemodialysis. Despite treatment, she has not had significant improvement in her renal function or mental status. Yesterday, her son and sisters met with hospitalist and decided to pursue comfort directed approach to her care. Allergies Allergy/AdvReac Type Severity Reaction Status Date / Time tramadol Allergy Mild NASUEA/CONF Verified 09/09/21 19:34 USION cephalexin [From Keflex] AdvReac Mild upset Verified 09/09/21 19:34 stomach Home Medications Medication Instructions Recorded Confirmed Type amlodipine 5 mg tablet (Norvasc) 5 mg PO QAM 12/05/18 09/09/21 History cholecalciferol (vitamin D3) 25 25 mcg PO QAM 12/11/19 09/09/21 History mcg (1,000 unit) tablet (Vitamin D3) metoprolol tartrate 25 mg tablet 12.5 mg PO BID 03/26/20 09/09/21 History diphenhydramine HCl 25 mg capsule 25 mg PO HS PRN cap 03/28/20 09/09/21 History (Benadryl) multivitamin 1 tab PO QAM 04/25/20 09/09/21 History cetirizine 10 mg tablet (Zyrtec) 10 mg PO QAM 01/14/21 09/09/21 History montelukast 10 mg tablet 10 mg PO DAILY 08/15/21 09/09/21 History nystatin 100,000 unit/mL oral 5 ml PO QID #140 ml 08/21/21 09/09/21 Rx suspension aspirin 81 mg tablet,delayed 81 mg PO QAM #30 tab 09/03/21 09/09/21 Rx release atorvastatin 40 mg tablet 40 mg PO QAM #30 tab 09/03/21 09/09/21 Rx apixaban 2.5 mg tablet (Eliquis) 2.5 mg PO BID #60 tab 09/05/21 09/09/21 Rx ferrous sulfate 325 mg (65 mg 325 mg PO QAM #30 tab 09/05/21 09/09/21 Rx iron) tablet,delayed release hydrocortisone 10 mg tablet 10 mg PO HS #30 tab 09/05/21 09/09/21 Rx (Cortef) hydrocortisone 10 mg tablet 20 mg PO QAM #60 tab 09/05/21 09/09/21 Rx (Cortef) pantoprazole 40 mg tablet,delayed 40 mg PO BID #60 tab 09/05/21 09/09/21 Rx release acetaminophen 325 mg tablet 650 mg PO Q6H PRN 09/09/21 09/09/21 History (Tylenol) levofloxacin 750 mg tablet 750 mg PO QPM 09/09/21 09/09/21 History prednisone 10 mg tablet See Rx Instructions .ROUTE .COMPLEX 09/09/21 09/09/21 History promethazine 25 mg tablet 25 mg PO Q6H PRN 09/09/21 09/09/21 History Patient History Medical History Cerebral infarct "Presumed old right frontal lobe cerebral infarct" - per Dec 2019 PET scan -- pt unaware/denies 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 No chemo or XRT GERD (gastroesophageal reflux disease) Hearing deficit Hiatal hernia Hx of pulmonary embolus 2019 s/p foot surgery, was on Eliquis for a few months. Hypertension Kidney disease Stage III- does not follow with personal injury litigation paralegal Left leg DVT post op after foot surgery Melanoma Metastatic malignant melanoma dx'ed 10/29/20 Will require immunotherapy infusions- reason for port Obesity Presence of permanent central venous catheter (09/18/21) Insertion of Temporary Dialysis Catheter, Right Femoral Approach, Ultrasound Localization of Right Femoral Artery, Fluroscopy for Positioning(Right) - Juan Abbott, DO 09/18/2021 Seasonal allergies SOB (shortness of breath) on exertion Unilateral vocal cord paralysis sees Cheryl - Dr. Tinsley Surgical History H/O excision of mass History of ankle surgery RECONSTRUCTION OF LEFT ANKLE History of biopsy History of cataract surgery History of colonoscopy History of esophagogastroduodenoscopy (EGD) History of laryngoscopy Hx of bladder repair surgery Hx of foot surgery reconstructive right foot surgery (2018) Hx of hysterectomy Hx of total knee replacement RIGHT AND LEFT Hx of tubal ligation PONV (postoperative nausea and vomiting) Family History Mother Hearing loss Cancer Sister Hearing loss Cancer Other Breast cancer Family history non-contributory No family history of adverse response to anesthesia No family history of bleeding disorder Social History Smoking Status: Never smoker Second Hand Exposure: No; Hx Alcohol Use: No Hx Substance Use: No Preferred Language: Persian Communication Ability: Effective Manager Beverage Required: No Beliefs That Will Affect Care: None marital status: Current Living Situation: [facility] Current [facility] Situation Comment: [facility] How many Children do You have: 2 Feels Safe at Home: Yes Safety Concerns: Feels Safe At This Time during the past year weight has: increased > 10 lbs Assistive Devices: Cane and Walker Assistive Devices Comment: hearing aid 1 Review of Systems Review of Systems: Unobtainable due to cognitive status ESAS Pain 0/3 Dyspnea 0/3 Anxiety 0/3 PPS 30% Physical Exam Constitutional: no acute distress ENMT: Mouth: oral mucous membranes not dry Respiratory: normal respiratory effort; no labored breathing Cardiovascular: Rate/Rhythm: regular rate and regular rhythm Gastrointestinal (Abdomen): obese, nontender Skin: warm and dry Neurologic: awake and + confused Asks me multiple times if she needs to go to the hospital and what tests I want. Wants to talk to the nurse at [facility], though she had been at [facility] prior to admission PG Care Time/CCT Total # of Minutes Spent Total Time Spent: 65 Total Time Spent with Patient: Total time spent is greater than 50% in coordination of care (as documented) at patient's floor/unit and/or counseling patient: goals of care, patient and family education and support, symptom management Coding Level of Care Code 29958 Initial Inpt Care Lvl 2 Diagnoses Confusion R41.0 Palliative care encounter Z51.5 SHAMEKA (acute kidney injury) N17.9 Melanoma C43.9 UTI (urinary tract infection) N30.01 Hematuria presence: with hematuria Urinary tract infection type: acute cystitis
[2021-10-02] MEDS ORDERED: oxyCODONE HCL IR 5 MG TAB (IMMEDIATE RELEASE) PO PRN (12:54)
--- NOTE | 2021-10-02 15:43 | Nephrology Progress Note ---
Date of Service October 02, 2021 Assessment & Plan (1) SHAMEKA (acute kidney injury): Plan: SHAMEKA related to ATN vs immune checkpoint inhibitor (nivolumab/ipilimumab) associated AIN. Remains oliguric. Started HD 09/19/21 via R femoral catheter. LIJ TDC placed by Dr. Michelle 09/26/21. No signs of renal recovery. Patient has transitioned to comfort care. Plan of care will not include dialysis in the future. Nephrology will sign-off. Please call with questions or concerns. I would suggest HD catheter can remain in place for now with consultation for vascular surgery to remove in the future if needed for comfort. (2) Anemia: (3) Hypertension: (4) Thrombocytopenia: (5) Chronic kidney disease, stage III (moderate): Admission and Anticipated Discharge Date Admission Date: September 09, 2021 Khris Mast was seen and evaluated this AM. Plan of care discussed with Dr. Cervantes. HD completed yesterday without complications, net UF 2 L. No complaints this AM. Some mild persistent tenderness at dialysis catheter exit site. Physical Exam Constitutional: + frail appearing; no acute distress Eyes: + anicteric sclerae; no corneal abnormality ENMT: Ears: + hearing impairment Mouth: no oral mucosal abnormality and oral mucous membranes not dry Neck: normal visual inspection and trachea midline LIJ TDC with bruising and ecchymosis over pocket Respiratory: normal respiratory effort Auscultation: lungs clear to auscultation bilaterally and + diminished lung sounds (at bases) Cardiovascular: Rate/Rhythm: regular rate Heart Sounds: normal S1, normal S2 and + murmur Extremities: + edema (non pitting and pedal edema in both legs, dependent edema) Musculoskeletal: Extremities: no cyanosis and no clubbing Skin: + turgor decreased; no lesions Neurologic: Motor/Sensory: no tremor and no asterixis Psychiatric: Orientation: alert and cooperative; + not oriented to place and + not oriented to time PG Care Time/CCT Total # of Minutes Spent Total Time Spent with Patient: Total time spent is greater than 50% in coordination of care (as documented) at patient's floor/unit and/or counseling patient: Coding Level of Care Code 63105 Subseq Hosp Care Lvl 3 Diagnoses SHAMEKA (acute kidney injury) N17.9 Anemia D64.9 Anemia type: unspecified type Hypertension I10 Thrombocytopenia D69.6 Chronic kidney disease, stage III (moderate) N18.30 (1) Anemia Anemia type: unspecified type Qualified Code(s): D64.9 - Anemia, unspecified
--- NOTE | 2021-10-03 09:27 | Hospitalist Progress Note ---
Date of Service October 03, 2021 Assessment & Plan (1) Encephalitis: Plan: 76-year-old female with past medical history HTN, GERD, History of DVT, metastatic melanoma (on Keytruda and oral steroid taper), who presented with fever and altered mental status and admitted for metabolic encephalitis and acute kidney injury in the setting of recent discharge for presumed sepsis for fungal UTI, and subacute CVA on 09/05. Transitioned to comfort measures on 10/01 Palliative care -After discussion with family and son/POA over past few days, agreed to transition pt to comfort measures on 10/01 -Family wishing for discharge [facility], case management following -Ativan, Zofran, pain PRNs available Acute renal failure secondary to ATN -Stopped dialysis after transition to comfort measures -Rollins catheter removed on 10/01 -No longer trending labs, I's/O's Anemia -Received 1u pRBC transfusion on 10/01 for Hgb 7.1, transitioned to DONOR SERVICES COORDINATOR before subsequent H/H recheck -No longer trending Hgb after transition to comfort measures Deep venous thrombosis -Known history of previous DVTs and active DVT in R femoral vein per 09/29 doppler -Spoke with family- deferring anticoagulation and treatment after transition to DONOR SERVICES COORDINATOR Thrombocytopenia -Concern for DIC, HIT, TTP -No longer working up after transition to DONOR SERVICES COORDINATOR -No longer trending CBC Fever of unknown origin -Temp 38.6 C on 09/27, no fevers since -Stopped Zosyn/Levaquin on 10/01 after [employer]OR SERVICES COORDINATOR Altered mental status/Delirium -Still delirious -Reorientation as needed Hypophysitis -No longer treating with steroids after [employer]OR SERVICES COORDINATOR Code: DNR/DNI Dispo: [facility] SERVICES COORDINATOR, plan for hospice at SNF- [facility] FEN/GI: Regular DVT Prophylaxis: Deferring anticoagulation due to DONOR SERVICES COORDINATOR (2) SHAMEKA (acute kidney injury): (3) Sepsis: (4) Anemia: (5) Leukocytosis: (6) Adrenal suppression: (7) Cerebrovascular accident (CVA): (8) Fever of unknown origin: (9) Chronic kidney disease, stage III (moderate): (10) History of DVT (deep vein thrombosis): Admission and Anticipated Discharge Date Admission Date: September 09, 2021 Supervising Physician Co-Signing Physician Notes Patient seen and examined with PGY-1 Dr. Roberts. Agree with history, exam findings, assessment and plan of care as outlined. In brief, 76 year old female with metastatic melanoma on Keytruda admitted with Keytruda induced renal failure, fever and altered mental status. Currently on comfort measures. Awaiting a bed discharge to [facility] with hospice. Subjective No acute events overnight. Pt appeared comfortable, denied any acute complaints. Said she was trying to do everything she can to get better. Review of Systems Review of Systems: Denied any acute complaints Physical Exam Physical Exam: General: appeared comfortable, no acute distress Resp: CTAB, no increased work of breathing Results & Data Results & Data ([facility]) Vital Signs (Past 12 Hours) Vital Signs Temp Pulse Pulse Resp BP Pulse Ox 10/03/21 08:00 36.8 C 70 18 121/63 95 10/02/21 22:20 83 Resident Activity Tracking Resident Involvement: Resident Care Provided Care Provided: Adult Hospital Medicine (1) Anemia Anemia type: unspecified type Qualified Code(s): D64.9 - Anemia, unspecified (2) Leukocytosis Leukocytosis type: unspecified Qualified Code(s): D72.829 - Elevated white blood cell count, unspecified (3) Sepsis Sepsis acute organ dysfunction status: unspecified Sepsis type: sepsis due to unspecified organism Qualified Code(s): A41.9 - Sepsis, unspecified organism
--- NOTE | 2021-10-03 13:24 | Palliative Care Progress Note ---
Date of Service October 03, 2021 Assessment & Plan (1) Palliative care encounter: Plan: Comfortable. Continue prn medications for pain, dyspnea, anxiety, agitation and secretions. I spoke with her sister, Lillie, on the phone. She is pleased with the care that Kezia is getting. She asked about her returning to [facility]. Discussed Kezia returning to [facility] with additional support of hospice when bed is available. Admission and Anticipated Discharge Date Admission Date: September 09, 2021 Subjective Awake. Confused at times. Poor po intake. Denies pain or discomfort. Review of Systems Review of Systems: ESAS Pain 0/3 Dyspnea 0/3 Nausea 0/3 Drowsiness 1/3 PPS 30% Physical Exam Constitutional: no acute distress ENMT: Mouth: + dry oral mucous membranes Respiratory: normal respiratory effort; no labored breathing Cardiovascular: Rate/Rhythm: regular rate and regular rhythm Skin: warm and dry Results & Data ([facility]) Vital Signs (Past 12 Hours) Vital Signs Temp Pulse Resp BP BP Pulse Ox 10/03/21 12:00 98.1 F 87 16 118/67 97 10/03/21 08:00 98.2 F 70 18 121/63 95 PG Care Time/CCT Total # of Minutes Spent Total Time Spent with Patient: Total time spent is greater than 50% in coordination of care (as documented) at patient's floor/unit and/or counseling patient: Coding Level of Care Code 52339 Subseq Hosp Care Lvl 2 Diagnoses Palliative care encounter Z51.5
--- NOTE | 2021-10-04 10:11 | Hospitalist Progress Note ---
Date of Service October 04, 2021 Assessment & Plan (1) Encephalitis: Plan: 76-year-old female with past medical history HTN, GERD, History of DVT, metastatic melanoma (on Keytruda and oral steroid taper), who presented with fever and altered mental status and admitted for metabolic encephalitis and acute kidney injury in the setting of recent discharge for presumed sepsis for fungal UTI, and subacute CVA on 09/05. Transitioned to comfort measures on 10/01 Palliative care -After discussion with family and son/POA over past few days, agreed to transition pt to comfort measures on 10/01 -Family wishing for discharge back to [facility], case management following -Ativan, Zofran, pain PRNs available Acute renal failure secondary to ATN -Stopped dialysis after transition to comfort measures -Rollins catheter removed on 10/01 -No longer trending labs, I's/O's Anemia -Received 1u pRBC transfusion on 10/01 for Hgb 7.1, transitioned to WELL TESTING OPERATOR before subsequent H/H recheck -No longer trending Hgb after transition to comfort measures Deep venous thrombosis -Known history of previous DVTs and active DVT in R femoral vein per 09/29 doppler -Spoke with family- deferring anticoagulation and treatment after transition to WELL TESTING OPERATOR Thrombocytopenia -Concern for DIC, HIT, TTP -No longer working up after transition to WELL TESTING OPERATOR -No longer trending CBC Fever of unknown origin -Temp 38.6 C on 09/27, no fevers since -Stopped Zosyn/Levaquin on 10/01 after WELL TESTING OPERATOR Altered mental status/Delirium -Still delirious -Reorientation as needed Hypophysitis -No longer treating with steroids after WELL TESTING OPERATOR Code: DNR/DNI Dispo: WELL TESTING OPERATOR, plan for hospice at SNF- discharge back to [facility] FEN/GI: Regular DVT Prophylaxis: Deferring anticoagulation due to WELL TESTING OPERATOR (2) SHAMEKA (acute kidney injury): (3) Sepsis: (4) Anemia: (5) Leukocytosis: (6) Adrenal suppression: (7) Cerebrovascular accident (CVA): (8) Fever of unknown origin: (9) Chronic kidney disease, stage III (moderate): (10) History of DVT (deep vein thrombosis): Admission and Anticipated Discharge Date Admission Date: September 09, 2021 Supervising Physician Co-Signing Physician Notes Patient seen and examined independently of PGY-1 Dr. Guevara. Agree with history, exam findings, assessment and plan of care as outlined. In brief, 76 year old female with metastatic melanoma on Keytruda admitted with Keytruda induced renal failure, fever and altered mental status. She is eating a tray of various foods, interacting with visiting family members. Currently on comfort measures. Awaiting a bed discharge to [facility] with hospice. Subjective Patient seen at the bedside saying she was cold, denied shortness of breath, fevers, chills. Review of Systems Constitutional: as per Subjective / HPI Physical Exam Constitutional: WD/WN, vitals as above Eyes: PERRL, conjunctivae normal, anicteric sclerae Respiratory: normal respiratory effort Psychiatric: Orientation: alert Resident Activity Tracking Resident Involvement: Resident Care Provided Care Provided: Adult Hospital Medicine (1) Anemia Anemia type: unspecified type Qualified Code(s): D64.9 - Anemia, unspecified (2) Leukocytosis Leukocytosis type: unspecified Qualified Code(s): D72.829 - Elevated white blood cell count, unspecified (3) Sepsis Sepsis acute organ dysfunction status: unspecified Sepsis type: sepsis due to unspecified organism Qualified Code(s): A41.9 - Sepsis, unspecified organism
--- NOTE | 2021-10-05 06:57 | Hospitalist Progress Note ---
Date of Service October 05, 2021 Assessment & Plan (1) Encephalitis: Plan: 76-year-old female with past medical history HTN, GERD, History of DVT, metastatic melanoma (on Keytruda and oral steroid taper), who presented with fever and altered mental status and admitted for metabolic encephalitis and acute kidney injury in the setting of recent discharge for presumed sepsis for fungal UTI, and subacute CVA on 09/05. Transitioned to comfort measures on 10/01 Palliative care -After discussion with family and son/POA over past few days, agreed to transition pt to comfort measures on 10/01 -Family wishing for discharge back to [facility] hospice, case management following -Ativan, Zofran, pain PRNs available Acute renal failure secondary to ATN -Stopped dialysis after transition to comfort measures -Rollins catheter removed on 10/01 -No longer trending labs, I's/O's Anemia -Received 1u pRBC transfusion on 10/01 for Hgb 7.1, transitioned to MEMBERSHIP SOLICITOR before subsequent H/H recheck -No longer trending Hgb after transition to comfort measures Deep venous thrombosis -Known history of previous DVTs and active DVT in R femoral vein per 09/29 doppler -Spoke with family- deferring anticoagulation and treatment after transition to MEMBERSHIP SOLICITOR Thrombocytopenia -Concern for DIC, HIT, TTP -No longer working up after transition to MEMBERSHIP SOLICITOR -No longer trending CBC Fever of unknown origin -Temp 38.6 C on 09/27, no fevers since -Stopped Zosyn/Levaquin on 10/01 after MEMBERSHIP SOLICITOR Altered mental status/Delirium -Still delirious -Reorientation as needed Hypophysitis -No longer treating with steroids after MEMBERSHIP SOLICITOR Code: DNR/DNI Dispo: MEMBERSHIP SOLICITOR, plan for hospice at SNF- discharge back to [facility] FEN/GI: Regular DVT Prophylaxis: Deferring anticoagulation due to MEMBERSHIP SOLICITOR (2) SHAMEKA (acute kidney injury): (3) Sepsis: (4) Anemia: (5) Leukocytosis: (6) Adrenal suppression: (7) Cerebrovascular accident (CVA): (8) Fever of unknown origin: (9) Chronic kidney disease, stage III (moderate): (10) History of DVT (deep vein thrombosis): Admission and Anticipated Discharge Date Admission Date: September 09, 2021 Supervising Physician Co-Signing Physician Notes Patient seen and examined independently of PGY-1 Dr. Guevara. Agree with history, exam findings, assessment and plan of care as outlined. In brief, 76 year old female with metastatic melanoma on Keytruda admitted with Keytruda induced renal failure, fever and altered mental status. She is sleeping. Respirations are unlabored and regular. Currently on comfort measures. Awaiting a bed discharge to [facility] with hospice. Subjective Patient seen at the bedside resting comfortably in bed. Review of Systems Constitutional: as per Subjective / HPI Physical Exam Constitutional: WD/WN, vitals as above Eyes: PERRL, conjunctivae normal, anicteric sclerae Respiratory: normal respiratory effort, lungs clear to auscultation Cardiovascular: Rate/Rhythm: regular rate and regular rhythm Heart Sounds: normal S1 and normal S2 Psychiatric: Orientation: alert Resident Activity Tracking Resident Involvement: Resident Care Provided Care Provided: Adult Hospital Medicine (1) Anemia Anemia type: unspecified type Qualified Code(s): D64.9 - Anemia, unspecified (2) Leukocytosis Leukocytosis type: unspecified Qualified Code(s): D72.829 - Elevated white blood cell count, unspecified (3) Sepsis Sepsis acute organ dysfunction status: unspecified Sepsis type: sepsis due to unspecified organism Qualified Code(s): A41.9 - Sepsis, unspecified organism
[2021-10-05] MEDS: ALUMINUM/MAGNESIUM SUSP 30 ML UDC PO PRN (07:56)
--- NOTE | 2021-10-06 06:45 | Discharge Summary ---
Date of Service October 06, 2021 Admission HPI Per Admitting Provider 76-year-old female who is readmitted after discharge on September 05 with fever and concerns for sepsis. Last admission was similar she was treated for pneumonia and a fungal UTI eventually felt that her fever was from Keytruda and effervescing with steroids. She also had diagnosis of a subacute stroke in the right parietal area During hospital stay she is on multiple medications including Zosyn and Levaquin Zyvox vancomycin and as mentioned a 5-day course of fluconazole as recommended by infectious disease for Cherry albicans dublensens and glabrata culture of urine The patient had anemia during her hospital stay as low as 7.7 given 2 units of blood she presents similarly anemic now with a hemoglobin 8.4, she is seen by GI but not scope she maintains on Eliquis with dose reduction to 2.5 for history of DVT. Patient presents with metabolic encephalopathy fever low blood pressure and elevated procalcitonin and leukocytosis concern for sepsis. Undisclosed source concerns for fungal and fungemia Admission Exam Per Admitting Provider 76-year-old female who is readmitted after discharge on September 05 with fever and concerns for sepsis. Last admission was similar she was treated for pneumonia and a fungal UTI eventually felt that her fever was from Keytruda and effervescing with steroids. She also had diagnosis of a subacute stroke in the right parietal area During hospital stay she is on multiple medications including Zosyn and Levaquin Zyvox vancomycin and as mentioned a 5-day course of fluconazole as recommended by infectious disease for Cherry albicans dublensens and glabrata culture of urine The patient had anemia during her hospital stay as low as 7.7 given 2 units of blood she presents similarly anemic now with a hemoglobin 8.4, she is seen by GI but not scope she maintains on Eliquis with dose reduction to 2.5 for history of DVT. Patient presents with metabolic encephalopathy fever low blood pressure and el evated procalcitonin and leukocytosis concern for sepsis. Undisclosed source concerns for fungal and fungemia Principal Diagnosis acute renal failure metabolic encephalopathy Discharge Exam Patient ceased to breath and was pronounced by nursing. Please see their note for discharge exam. Discharge Data Allergies Allergy/AdvReac Type Severity Reaction Status Date / Time tramadol Allergy Mild NASUEA/CONF Verified 09/09/21 19:34 USION cephalexin [From Keflex] AdvReac Mild upset Verified 09/09/21 19:34 stomach Consultations 09/09/21 18:49 ED Decision to Admit Stat 09/09/21 21:20 Consult Infectious Diseases Routine Consult Nephrology Routine 09/11/21 08:39 Consult Oncology Routine 09/17/21 08:16 Consult General Surgery Routine 09/21/21 09:51 Consult Vascular Surgery Routine 09/29/21 13:56 Consult Hematology Routine 10/01/21 17:54 Consult Palliative Care Routine Procedures Performed Operation Date: 09/18/21 08:15 Actual Procedures p Insertion of Temporary Dialysis Catheter, Right Femoral Approach, Ultrasound Localization of Right Femoral Artery, Fluroscopy for Positioning(Right) - Juan Abbott, Operation Date: 09/23/21 08:55 <No data on this case meets the specified criteria> Operation Date: 09/26/21 08:50 Actual Procedures p Perm Catheter Placement, Left Jugular Vein Approach, Ultrasound Localization of Left Jugular Vein, Fluorosocpy for Positioning, Removal of Right Femoral Temporary Dialyisis Catheter(Left) - Arslan Michelle MD Ordered Studies 09/09/21 17:40 CT head/brain wo con Stat 09/09/21 21:20 US renal/blad retro comp Routine 09/18/21 07:17 EV cvc insrt tunnel wo prt/fire control assistant Routine US EV guide vascular access Routine 09/26/21 07:26 EV cvc insrt tunnel wo prt/fire control assistant Routine US EV guide vascular access Routine 09/28/21 10:31 CT angio chest PE protocol Urgent 09/28/21 15:40 CT abd pelvis oral con only Urgent 09/29/21 US venous doppler LE BI Routine Hospital Course (1) Encephalitis: 76-year-old female with past medical history HTN, GERD, History of DVT, metastatic melanoma (on Keytruda and oral steroid taper), who presented with fever and altered mental status and admitted for metabolic encephalopathy and acute kidney injury in the setting of recent discharge for presumed sepsis for fungal UTI, and subacute CVA on 09/05. Transitioned to comfort measures on 10/01 Palliative care -After discussion with family and son/POA over past few days, patient was transitioned to comfort measures on 10/01 -Patient ceased to breath at 0638 AM on 10/06/21 and was pronounced by Leena Ulloa RN and Bisi Hodges RN Acute renal failure -secondary to ATN vs. immune checkpoint inhibitor-associated AIN -Stopped dialysis after transition to comfort measures -Rollins catheter removed on 10/01 Anemia -Received 1u pRBC transfusion on 10/01 for Hgb 7.1, transitioned to RESEARCH AND DEVELOPMENT DIRECTOR before subsequent H/H recheck Deep venous thrombosis -Known history of previous DVTs and active DVT in R femoral vein per 09/29 doppler -Provider team spoke with family- deferring anticoagulation and treatment after transition to RESEARCH AND DEVELOPMENT DIRECTOR Thrombocytopenia -Concern for DIC, HIT, TTP -No longer working up after transition to RESEARCH AND DEVELOPMENT DIRECTOR Fever of unknown origin -Temp 38.6 C on 09/27, no fevers since -Unknown etiology/source -Stopped Zosyn/Levaquin on 10/01 after RESEARCH AND DEVELOPMENT DIRECTOR Altered mental status/Delirium -Still delirious -Reorientation as needed Hypophysitis -No longer treating with steroids after RESEARCH AND DEVELOPMENT DIRECTOR (2) SHAMEKA (acute kidney injury): (3) Sepsis: (4) Anemia: (5) Leukocytosis: (6) Adrenal suppression: (7) Cerebrovascular accident (CVA): (8) Fever of unknown origin: (9) Chronic kidney disease, stage III (moderate): (10) History of DVT (deep vein thrombosis): Total Time Total Time Spent Total Time Spent (In Minutes): 20 Discharge Plan Discharge Items Patient Disposition: Discharge Diagnosis: 1. acute renal failure 2. malignant melanoma Addtl Attending Provider Instructions: Patient ceased to breath on 10/06/21 at 06:38 AM and was pronounced by Leena Ulloa RN and Bisi Hodges RN. certificate and paperwork completed by Prashant Harkins MD. Following pronouncement, family (son, Octaviano) was notified by nursing team. Other Date/Time: 10/06/21 06:38 Supervising Physician Co-Signing Physician Notes pt before rounds today, expected
--- NOTE | 2021-10-06 17:20 | Billing Data ---
Date of Service October 06, 2021 Coding Level of Care Code D/C DAY MANAGEMENT <30 MINS
--- NOTE | 2021-11-18 13:41 | Coding Query ---
To promote full compliance with coding requirements relating to patient care, provider participation is requested in all cases of inpatient coder uncertainty. Please assist us with the question(s) below: Coding Question(s): Please clarify if Sepsis was diagnosed and POA. Physician's Response(s): SEPSIS ( xx ) Diagnosed and POA ( ) Diagnosed and not POA ( ) Ruled out ( ) Other (please specify) MTDD
== END 2021-10-06 13:59 | disposition expired | DRG 871 ==
LOC: ED 16:52 → 2S 19:49 → SUATTDRO 19:49 → 2S 20:26 → 2E 09-12 14:28 → 3E 10-03 23:34
DX: Z86.718 Personal history of other venous thrombosis and embolism; Z95.828 Presence of other vascular implants and grafts; Z79.01 Long term (current) use of anticoagulants; R41.0 Disorientation, unspecified; I12.9 Hypertensive chronic kidney disease with stage 1 through stage 4 chronic kidney disease, or unspecified chronic kidney disease; Z66 Do not resuscitate; E23.6 Other disorders of pituitary gland; G04.90 Encephalitis and encephalomyelitis, unspecified; Z86.711 Personal history of pulmonary embolism; D72.829 Elevated white blood cell count, unspecified; Z51.5 Encounter for palliative care; D65 Disseminated intravascular coagulation [defibrination syndrome]; R50.9 Fever, unspecified; T36.8X5A Adverse effect of other systemic antibiotics, initial encounter; N30.01 Acute cystitis with hematuria; Z86.73 Personal history of transient ischemic attack (TIA), and cerebral infarction without residual deficits; A41.9 Sepsis, unspecified organism; Z88.1 Allergy status to other antibiotic agents; D64.9 Anemia, unspecified; Z96.653 Presence of artificial knee joint, bilateral; G93.41 Metabolic encephalopathy; E27.49 Other adrenocortical insufficiency; N18.30 Chronic kidney disease, stage 3 unspecified; N17.0 Acute kidney failure with tubular necrosis; C43.9 Malignant melanoma of skin, unspecified; K21.9 Gastro-esophageal reflux disease without esophagitis; I82.411 Acute embolism and thrombosis of right femoral vein